=== PATIENT | male | born 1970 | race Hispanic/Latino ===

== ENCOUNTER 2020-09-17 10:24 | Outpatient (CLI) | payer OTHER ==
[2020-09-17] MEDS ORDERED: COVID-19 VACC, MRNA(PFIZER)/PF 30 MCG/0.3 ML IM ONE (10:37)
[2020-10-08] MEDS ORDERED: COVID-19 VACC, MRNA(PFIZER)/PF 30 MCG/0.3 ML IM ONE (11:29)
== END 2020-09-17 10:25 | disposition home or self-care (01) ==
LOC: COVVAC 10:24
PROVIDERS: ATTEND Internal Medicine
DX: Z23 Encounter for immunization (principal)
CPT/HCPCS: 0001A; 91300; 0002A

== ENCOUNTER 2021-04-16 20:18 | Inpatient (IN) | payer OTHER ==
[2021-04-16] MEDS ORDERED: dexAMETHasone 20 MG/5 ML VIAL IV ONE (21:12)
--- NOTE | 2021-04-16 21:31 | Emergency Department Report ---
ED General Adult HPI - General Chief complaint: Dyspnea/Respdistress Stated complaint: COVID + DUARTE Time Seen by Provider: 04/16/21 21:08 Source: patient Mode of arrival: Ambulatory Limitations: No Limitations - History of Present Illness Initial comments: Is a 51-year-old male who presents with shortness of breath. Patient has history of Covid and he was admitted last week to the hospital. He states he was sent home with oxygen however he is needed 4 L of oxygen and his shortness of breath has gotten worse when he walks his oxygen drops down to the mid 80s. And he coughs multiple times. Patient states he has some body aches he denies having nausea. - Related Data Home Medications Medication Instructions Recorded Confirmed Last Taken Cyclobenzaprine [Flexeril 10 MG 1 tab PO TID PRN 09/26/13 10/10/13 09/19/13 TAB] HYDROcodone/APAP 10-325 [[place] 1 tab PO Q6HR PRN 09/26/13 10/10/13 10/09/13 10-325 mg TAB] traMADoL [Ultram 50 MG tab] 1 tab PO Q6H PRN 09/26/13 10/10/13 10/03/13 Gabapentin 1 tab PO TID 09/27/13 10/10/13 10/09/13 Previous Rx's Medication Instructions Recorded Last Taken Type ALPRAZolam [Xanax] 0.25 mg PO QHS #30 tablet 10/11/13 Unknown Rx Oxycodone HCl/Acetaminophen 1 each PO Q6HR PRN #30 tablet 10/11/13 Unknown Rx [Percocet 7.5-325 mg] Acetaminophen [Tylenol] 500 tab PO Q6HR PRN #30 tablet 04/13/21 Unknown Rx Albuterol Sulfate [Proventil Hfa] 1 - 2 puff IH Q6H PRN #1 hfa.aer.ad 04/13/21 Unknown Rx Ascorbic Acid [Vitamin C] 1,000 mg PO Q12H #30 tablet 04/13/21 Unknown Rx Benzonatate [Tessalon Perles] 100 mg PO Q8HR #30 capsule 04/13/21 Unknown Rx Doxycycline Hyclate 100 mg PO Q12H #20 capsule 04/13/21 Unknown Rx Ondansetron [Zofran Odt] 4 mg PO Q6HR PRN #20 tab.rapdis 04/13/21 Unknown Rx Allergies Allergy/AdvReac Type Severity Reaction Status Date / Time No Known Allergies Allergy Unverified 09/26/13 14:03 ED Review of Systems ROS: Stated complaint: COVID + DUARTE Other details as noted in HPI Constitutional: weakness. denies: chills, fever Eyes: denies: eye pain, eye discharge, vision change ENT: denies: ear pain, throat pain Respiratory: cough. denies: wheezing Cardiovascular: denies: chest pain, palpitations Endocrine: no symptoms reported Gastrointestinal: denies: abdominal pain, nausea, diarrhea Genitourinary: denies: urgency, dysuria Musculoskeletal: denies: back pain, joint swelling, arthralgia Skin: denies: rash, lesions Neurological: denies: headache, weakness, paresthesias Psychiatric: denies: anxiety, depression Hematological/Lymphatic: denies: easy bleeding, easy bruising ED Past Medical Hx - Past Medical History Previous Medical History?: Yes Hx Hypertension: Yes Hx Congestive Heart Failure: No Hx Diabetes: No Hx GERD: Yes Hx Arthritis: Yes Hx Headaches / Migraines: Yes (migraines) Hx Asthma: No Hx COPD: No - Surgical History Past Surgical History?: No - Social History Smoking Status: Former Smoker - Medications Home Medications: Home Medications Medication Instructions Recorded Confirmed Last Taken Type Cyclobenzaprine [Flexeril 10 MG 1 tab PO TID PRN 09/26/13 10/10/13 09/19/13 History TAB] HYDROcodone/APAP 10-325 [[place] 1 tab PO Q6HR PRN 09/26/13 10/10/13 10/09/13 History 10-325 mg TAB] traMADoL [Ultram 50 MG tab] 1 tab PO Q6H PRN 09/26/13 10/10/13 10/03/13 History Gabapentin 1 tab PO TID 09/27/13 10/10/13 10/09/13 History ALPRAZolam [Xanax] 0.25 mg PO QHS #30 tablet 10/11/13 Unknown Rx Oxycodone HCl/Acetaminophen 1 each PO Q6HR PRN #30 tablet 10/11/13 Unknown Rx [Percocet 7.5-325 mg] Acetaminophen [Tylenol] 500 tab PO Q6HR PRN #30 tablet 04/13/21 Unknown Rx Albuterol Sulfate [Proventil Hfa] 1 - 2 puff IH Q6H PRN #1 hfa.aer.ad 04/13/21 Unknown Rx Ascorbic Acid [Vitamin C] 1,000 mg PO Q12H #30 tablet 04/13/21 Unknown Rx Benzonatate [Tessalon Perles] 100 mg PO Q8HR #30 capsule 04/13/21 Unknown Rx Doxycycline Hyclate 100 mg PO Q12H #20 capsule 04/13/21 Unknown Rx Ondansetron [Zofran Odt] 4 mg PO Q6HR PRN #20 tab.rapdis 04/13/21 Unknown Rx ED Physical Exam - General Limitations: No Limitations General appearance: alert, in no apparent distress - Head Head exam: Present: atraumatic, normocephalic - Eye Eye exam: Present: normal appearance - ENT ENT exam: Present: mucous membranes moist - Neck Neck exam: Present: normal inspection - Respiratory Respiratory exam: Present: respiratory distress, rhonchi - Cardiovascular Cardiovascular Exam: Present: regular rate, normal rhythm. Absent: systolic murmur, diastolic murmur, rubs, gallop - GI/Abdominal GI/Abdominal exam: Present: soft, normal bowel sounds - Rectal Rectal exam: Present: deferred - Extremities Exam Extremities exam: Present: normal inspection - Back Exam Back exam: Present: normal inspection - Neurological Exam Neurological exam: Present: alert, oriented X3 - Psychiatric Psychiatric exam: Present: normal affect, normal mood - Skin Skin exam: Present: warm, dry, intact, normal color. Absent: rash ED Course Vital Signs 04/16/21 04/16/21 04/16/21 20:22 21:06 22:33 Temperature 98.5 F Pulse Rate 95 H 101 H 85 Respiratory 20 22 20 Rate Blood Pressure 129/75 O2 Sat by Pulse 90 90 95 Oximetry - Consultations Consultation #1: 04/17/21 00:[address] Alvarez hospitalist about the patient he states the patient will be admitted to intermediate care ED Medical Decision Making - Lab Data Result diagrams: 04/16/21 21:18 04/16/21 21:18 Lab Results 04/16/21 04/16/21 04/16/21 Range/Units 21:18 21:18 21:18 WBC 3.5 L (4.5-11.0) K/mm3 RBC 4.62 (3.65-5.03) M/mm3 Hgb 13.3 (11.8-15.2) gm/dl Hct 40.5 (35.5-45.6) % MCV 88 (84-94) fl MCH 29 (28-32) pg MCHC 33 (32-34) % RDW 13.2 (13.2-15.2) % Plt Count 85 L (140-440) K/mm3 Lymph % (Auto) 20.0 (13.4-35.0) % [place] % (Auto) 5.2 (0.0-7.3) % Eos % (Auto) 0.1 (0.0-4.3) % Baso % (Auto) 0.5 (0.0-1.8) % Lymph # (Auto) 0.7 L (1.2-5.4) K/mm3 [place] # (Auto) 0.2 (0.0-0.8) K/mm3 Eos # (Auto) 0.0 (0.0-0.4) K/mm3 Baso # (Auto) 0.0 (0.0-0.1) K/mm3 Seg Neutrophils % 74.2 H (40.0-70.0) % Seg Neutrophils # 2.6 (1.8-7.7) K/mm3 Sodium 132 L (137-145) mmol/L Potassium 4.1 (3.6-5.0) mmol/L Chloride 93.8 L (98-107) mmol/L Carbon Dioxide 24 (22-30) mmol/L Anion Gap 18 mmol/L BUN 10 (9-20) mg/dL Creatinine 0.7 L (0.8-1.3) mg/dL Estimated GFR > 60 ml/min BUN/Creatinine Ratio 14 % Glucose 125 H (75-100) mg/dL Lactic Acid 1.10 (0.7-2.0) mmol/L Calcium 8.2 L (8.4-10.2) mg/dL Total Bilirubin 0.50 (0.1-1.2) mg/dL AST 83 H (5-40) units/L ALT 63 H (7-56) units/L Alkaline Phosphatase 49 (35-129) units/L Total Protein 6.3 (6.3-8.2) g/dL Albumin 3.7 L (3.9-5) g/dL Albumin/Globulin Ratio 1.4 % - Radiology Data Radiology results: report reviewed, image reviewed X-ray: Shows worsening Covid pneumonia CT angio: Shows worsening Covid pneumonia - Medical Decision Making Chief medical diagnosis: Covid pneumonia differential medical diagnosis acute respiratory failure, pulmonary embolism I will get IV Decadron CBC BMP CT angio IV antibiotics and I will admit the patient to the hospital Critical Care Time: Yes (120) Critical care attestation.: If time is entered above; I have spent that time in minutes in the direct care of this critically ill patient, excluding procedure time. ED Disposition Clinical Impression: Acute respiratory failure due to COVID-19, SOB (shortness of breath) Disposition: 04 INTERMEDIATE CARE FACILITY Is pt being admited?: Yes Does the pt Need Aspirin: No Condition: Stable Referrals: PRIMARY CARE, [Primary Care Provider] - 3-5 Days
[2021-04-16 21:36] LABS: Basophils % (Auto) 0.5 % (0.0-1.8); Eosinophils % (Auto) 0.1 % (0.0-4.3); Hematocrit 40.5 % (35.5-45.6); Hemoglobin 13.3 gm/dl (11.8-15.2); Lymphocytes # (Auto) 0.7 K/mm3 (1.2-5.4); Mean Corpuscular HGB Conc 33 % (32-34); Mean Corpuscular Volume 88 fl (84-94); Monocytes # (Auto) 0.2 K/mm3 (0.0-0.8); Monocytes % (Auto) 5.2 % (0.0-7.3); Red Blood Count 4.62 M/mm3 (3.65-5.03); Red Cell Distribution Width 13.2 % (13.2-15.2)
--- NOTE | 2021-04-16 21:41 | XRay Report ---
CHEST 1 VIEW INDICATION: sob. COMPARISON: 4 days prior FINDINGS: SUPPORT DEVICES: None. HEART: Within normal limits. LUNGS/PLEURA: Extensive patchy multifocal airspace disease has developed since the previous exam when the lungs were clear. No effusion identified. ADDITIONAL FINDINGS: None. IMPRESSION: 1. Significantly worsened exam. Signer Name: Ron Ford MD Signed: 04/16/2021 9:37 PM Workstation Name: [id number]
[2021-04-16 21:43] LABS: Platelet Count 85 K/mm3 (140-440)
[2021-04-16 21:52] LABS: Alanine Aminotransferase 63 units/L (7-56); Albumin 3.7 g/dL (3.9-5); Blood Urea Nitrogen 10 mg/dL (9-20); Calcium 8.2 mg/dL (8.4-10.2); Hemolysis Index 27
[2021-04-16 22:02] LABS: BUN/Creatinine Ratio 14
[2021-04-17] MEDS ORDERED: PIPERACIL/TAZOBACTA 4.5/NS 100 4.5 GM/100 ML VIAL IV ONE (00:04)
--- NOTE | 2021-04-17 00:07 | Cat Scan Report ---
CTA CHEST WITH CONTRAST INDICATION / CLINICAL INFORMATION: Dyspnea / Respiratory Distress. Concern for Pulmonary Embolism. TECHNIQUE: Axial CT images were obtained through the chest after injection of 1 cc of Omnipaque 350 I V contrast. 3 plane MIP and/or 3D reconstructions were produced. All CT scans at this location are pe rformed using CT dose reduction for ALARA by means of automated exposure control. COMPARISON: None available. FINDINGS: PULMONARY ARTERIES: No central pulmonary embolism. There is poor opacification of the pulmonary arter ies beyond the central pulmonary artery. THORACIC AORTA: No significant abnormality. HEART: No significant abnormality. CORONARY ARTERY CALCIFICATION: None. MEDIASTINUM / CHRISTIE: No significant abnormality. PLEURA: No pleural effusion. No pneumothorax. LUNGS: Scattered groundglass opacities throughout the bilateral lungs. ADDITIONAL FINDINGS: None. UPPER ABDOMEN: No acute findings. SKELETAL STRUCTURES: No significant osseous abnormality. IMPRESSION: 1. No CT evidence for central pulmonary embolism. 2. Scattered groundglass opacities at the bilateral lungs suggesting atypical infectious process. Signer Name: Rodriguez Haynes DO Signed: 04/17/2021 12:03 AM Workstation Name: [id number]
[2021-04-17] MEDS ORDERED: ONDANSETRON 4 MG/2 ML INJ IV PRN (01:45)
--- NOTE | 2021-04-17 01:55 | History and Physical Report ---
History of Present Illness Date of examination: 04/17/21 Date of admission: 04/17/21 00:43 Chief complaint: Shortness of breath Respiratory distress History of present illness: 51-year-old male with history of morbid obesity, hypertension, migraine, coronary osteoarthritis and GERD and headache was brought to the emergency room because of progressive shortness of breath. Patient has history of Covid and he was admitted last week to the hospital. He states he was sent home with oxygen however he is needed 4 L of oxygen and his shortness of breath has gotten worse when he walks his oxygen drops down to the mid 80s. And he coughs multiple times. Patient states he has some body aches he denies having nausea. Patient stated that he came into contact with an individual who had tested positive for COVID-19 viral infection, but he admits that he has been fully vaccinated against COVID-19 viral infection. In the emergency room patient CT scan of the chest showed scattered groundglass opacities at the bilateral lung suggesting atypical infectious process. Past History Past Medical History: arthritis (Migraine headache), GERD, hypertension, other (Morbid obesity) Medications and Allergies Allergies Allergy/AdvReac Type Severity Reaction Status Date / Time No Known Allergies Allergy Unverified 09/26/13 14:03 Home Medications Medication Instructions Recorded Confirmed Last Taken Type Cyclobenzaprine [Flexeril 10 MG 1 tab PO TID PRN 09/26/13 10/10/13 09/19/13 History TAB] HYDROcodone/APAP 10-325 [[place] 1 tab PO Q6HR PRN 09/26/13 10/10/13 10/09/13 History 10-325 mg TAB] traMADoL [Ultram 50 MG tab] 1 tab PO Q6H PRN 09/26/13 10/10/13 10/03/13 History Gabapentin 1 tab PO TID 09/27/13 10/10/13 10/09/13 History ALPRAZolam [Xanax] 0.25 mg PO QHS #30 tablet 10/11/13 Unknown Rx Oxycodone HCl/Acetaminophen 1 each PO Q6HR PRN #30 tablet 10/11/13 Unknown Rx [Percocet 7.5-325 mg] Acetaminophen [Tylenol] 500 tab PO Q6HR PRN #30 tablet 04/13/21 Unknown Rx Albuterol Sulfate [Proventil Hfa] 1 - 2 puff IH Q6H PRN #1 hfa.aer.ad 04/13/21 Unknown Rx Ascorbic Acid [Vitamin C] 1,000 mg PO Q12H #30 tablet 04/13/21 Unknown Rx Benzonatate [Tessalon Perles] 100 mg PO Q8HR #30 capsule 04/13/21 Unknown Rx Doxycycline Hyclate 100 mg PO Q12H #20 capsule 04/13/21 Unknown Rx Ondansetron [Zofran Odt] 4 mg PO Q6HR PRN #20 tab.rapdis 04/13/21 Unknown Rx Active Meds: Active Medications Acetaminophen (Acetaminophen 325 Mg Tab) 650 mg PO Q4H PRN PRN Reason: Pain MILD(1-3)/Fever >100.5/ALEXANDER Albuterol (Albuterol 2.5 Mg/3 Ml Nebu) 2.5 mg IH Q4HRT PRN PRN Reason: Shortness Of Breath Albuterol/Ipratropium (Ipratropium/Albuterol Sulfate 3 Ml Ampul.Neb) 1 ampul IH Q6HRT DEIRDRE Famotidine (Famotidine 20 Mg Tab) 20 mg PO BID DEIRDRE Hydromorphone HCl (Hydromorphone 1 Mg/1 Ml Inj) 0.5 mg IV Q3H PRN PRN Reason: Pain , Severe (7-10) Ceftriaxone Sodium (Rocephin/Ns 2 Gm/100 Ml) 2 gm in 100 mls @ 200 mls/hr IV Q24H DEIRDRE; Protocol Azithromycin (Zithromax/Ns) 500 mg in 250 mls @ 250 mls/hr IV Q24H DEIRDRE; Protocol Morphine Sulfate (Morphine 2 Mg/1 Ml Inj) 2 mg IV Q4H PRN PRN Reason: Pain, Moderate (4-6) Ondansetron HCl (Ondansetron 4 Mg/2 Ml Inj) 4 mg IV Q8H PRN PRN Reason: Nausea And Vomiting Sodium Chloride (Sodium Chloride 0.9% 10 Ml Flush Syringe) 10 ml IV BID DEIRDRE Sodium Chloride (Sodium Chloride 0.9% 10 Ml Flush Syringe) 10 ml IV PRN PRN PRN Reason: LINE FLUSH Review of Systems All systems: negative Cardiovascular: shortness of breath, dyspnea on exertion Respiratory: shortness of breath, dyspnea on exertion Exam - Constitutional Vitals: Temp Pulse Resp BP Pulse Ox 98.5 F 85 20 129/75 95 04/16/21 20:22 04/16/21 22:33 04/16/21 22:33 04/16/21 20:22 04/16/21 22:33 General appearance: Present: no acute distress, well-nourished - EENT Eyes: Present: PERRL ENT: hearing intact, clear oral mucosa - Neck Neck: Present: supple, normal ROM - Respiratory Respiratory effort: normal Respiratory: bilateral: diminished - Cardiovascular Heart Sounds: Present: S1 & S2. Absent: rub, click - Extremities Extremities: pulses symmetrical, No edema Peripheral Pulses: within normal limits - Abdominal General gastrointestinal: Present: soft, non-tender, non-distended, normal bowel sounds Male genitourinary: Present: normal - Integumentary Integumentary: Present: clear, warm, dry - Musculoskeletal Musculoskeletal: gait normal, strength equal bilaterally - Psychiatric Psychiatric: appropriate mood/affect, intact judgment & insight - Neurologic Neurologic: CNII-XII intact, moves all extremities Results - Labs CBC & Chem 7: 04/16/21 21:18 04/16/21 21:18 Labs: Laboratory Last Values WBC 3.5 K/mm3 (4.5-11.0) L 04/16/21 21:18 RBC 4.62 M/mm3 (3.65-5.03) 04/16/21 21:18 Hgb 13.3 gm/dl (11.8-15.2) 04/16/21 21:18 Hct 40.5 % (35.5-45.6) 04/16/21 21:18 MCV 88 fl (84-94) 04/16/21 21:18 MCH 29 pg (28-32) 04/16/21 21:18 MCHC 33 % (32-34) 04/16/21 21:18 RDW 13.2 % (13.2-15.2) 04/16/21 21:18 Plt Count 85 K/mm3 (140-440) L 04/16/21 21:18 Lymph % (Auto) 20.0 % (13.4-35.0) 04/16/21 21:18 [place] % (Auto) 5.2 % (0.0-7.3) 04/16/21 21:18 Eos % (Auto) 0.1 % (0.0-4.3) 04/16/21 21:18 Baso % (Auto) 0.5 % (0.0-1.8) 04/16/21 21:18 Lymph # (Auto) 0.7 K/mm3 (1.2-5.4) L 04/16/21 21:18 [place] # (Auto) 0.2 K/mm3 (0.0-0.8) 04/16/21 21:18 Eos # (Auto) 0.0 K/mm3 (0.0-0.4) 04/16/21 21:18 Baso # (Auto) 0.0 K/mm3 (0.0-0.1) 04/16/21 21:18 Seg Neutrophils % 74.2 % (40.0-70.0) H 04/16/21 21:18 Seg Neutrophils # 2.6 K/mm3 (1.8-7.7) 04/16/21 21:18 Sodium 132 mmol/L (137-145) L 04/16/21 21:18 Potassium 4.1 mmol/L (3.6-5.0) 04/16/21 21:18 Chloride 93.8 mmol/L (98-107) L 04/16/21 21:18 Carbon Dioxide 24 mmol/L (22-30) 04/16/21 21:18 Anion Gap 18 mmol/L 04/16/21 21:18 BUN 10 mg/dL (9-20) 04/16/21 21:18 Creatinine 0.7 mg/dL (0.8-1.3) L 04/16/21 21:18 Estimated GFR > 60 ml/min 04/16/21 21:18 BUN/Creatinine Ratio 14 % 04/16/21 21:18 Glucose 125 mg/dL (75-100) H 04/16/21 21:18 Lactic Acid 1.10 mmol/L (0.7-2.0) 04/16/21 21:18 Calcium 8.2 mg/dL (8.4-10.2) L 04/16/21 21:18 Total Bilirubin 0.50 mg/dL (0.1-1.2) 04/16/21 21:18 AST 83 units/L (5-40) H 04/16/21 21:18 ALT 63 units/L (7-56) H 04/16/21 21:18 Alkaline Phosphatase 49 units/L (35-129) 04/16/21 21:18 Total Protein 6.3 g/dL (6.3-8.2) 04/16/21 21:18 Albumin 3.7 g/dL (3.9-5) L 04/16/21 21:18 Albumin/Globulin Ratio 1.4 % 04/16/21 21:18 - Imaging and Cardiology CT scan - chest: report reviewed Assessment and Plan VTE prophylaxis?: Chemical Plan of care discussed with patient/family: Yes - Patient Problems (1) Acute respiratory failure due to COVID-19 Current Visit: Yes Status: Acute Plan to address problem: Admit the patient to the medical telemetry. Oxygen via nasal cannula 3 L/min. DuoNeb by nebulizer every 4 hours. Dexamethasone 6 mg IV daily. Rocephin 2 g IV daily. Zithromax 500 mg IV daily. We will do the blood culture and sputum culture. Follow Covid inflammatory marker. Vitamin C 1000 mg p.o. every 12 hours. We will consult infectious disease as well as pulmonary for evaluation (2) Suspected 2019 novel coronavirus infection Current Visit: No Status: Acute Plan to address problem: Oxygen via nasal cannula 3 L/min. DuoNeb by nebulizer every 4 hours. Dexamethasone 6 mg IV daily. Rocephin 2 g IV daily. Zithromax 500 mg IV daily. We will do the blood culture and sputum culture. Follow Covid inflammatory marker. Vitamin C 1000 mg p.o. every 12 hours. We will consult infectious disease as well as pulmonary for evaluation (3) Community acquired pneumonia Current Visit: No Status: Acute Qualifiers: Laterality: unspecified laterality Qualified Code(s): J18.9 - Pneumonia, unspecified organism Plan to address problem: Oxygen via nasal cannula 3 L/min. DuoNeb by nebulizer every 4 hours. Dexamethasone 6 mg IV daily. Rocephin 2 g IV daily. Zithromax 500 mg IV daily. W e will do the blood culture and sputum culture. (4) Hypertension Current Visit: Yes Status: Acute Plan to address problem: Hydralazine 10 mg IV every 6 hours as needed. We continue the home medication (5) GERD (gastroesophageal reflux disease) Current Visit: Yes Status: Acute Plan to address problem: Pepcid 20 mg p.o. twice daily for GI prophylaxis. (6) Arthritis Current Visit: Yes Status: Acute Plan to address problem: Tylenol 650 mg p.o. every 6 hours as needed. We will continue the home medication (7) DVT prophylaxis Current Visit: No Status: Acute Plan to address problem: Heparin 5000 units subcu every 8 hours for DVT prophylaxis. Pepcid 20 mg p.o. twice daily for GI prophylaxis. Patient is a full code
[2021-04-17] MEDS ORDERED: AZITHROMYCIN/NS 500 MG/250 ML 500 MG/250 ML BAG IV SCH (02:00)
[2021-04-17] MEDS: ASCORBIC ACID 500 MG TAB PO SCH ×3 (03:40→23:33)
[2021-04-17] MEDS: cefTRIAXone/NS 2 GM/100 ML 2 GM/100 ML BAG IV SCH ×2 (03:40→10:07)
[2021-04-17] MEDS: IPRATROPIUM/ALBUTEROL SULFATE 3 ML AMPUL.NEB IH SCH ×4 (06:31→21:04)
--- NOTE | 2021-04-17 09:39 | Electrocardiograph Report ---
[facility] Test Date: 2021-04-17 Test Time: 02:42:30 Pat Name: LOTTIE CRUZ Department: Room: [place] [address] Gender: M [employer]: ANN : 1970 Requested By: DARON GREGORY Order Number: [id number] Reading MD: Jassi Melvin Measurements Intervals [place] Rate: 88 P: 46 NE: 154 QRS: 26 QRSD: 90 T: 23 QT: 348 QTc: 421 Interpretive Statements Sinus rhythm Probable left atrial enlargement Compared to ECG 04/12/2021 22:12:22 No significant changes Electronically Signed On 04-17-2021 9:39:15 EST by Jassi Melvin
[2021-04-17] MEDS: GABAPENTIN 300 MG CAP PO SCH ×3 (10:07→23:01)
[2021-04-17] MEDS: dexAMETHasone 4 MG/ML VIAL IV SCH (10:08)
[2021-04-17] MEDS: FAMOTIDINE 20 MG TAB PO SCH ×2 (10:08→23:31)
--- NOTE | 2021-04-17 11:01 | Consultation ---
History of Present Illness Consult date: 04/17/21 Requesting physician: TARIQ BAHENA Reason for consult: other (Acute Hypoxemic Resp Failure; COVID-19 Pneumonia) History of present illness: PULMONARY/CCM CONSULT NOTE (Full dictation # [id number]) Please see dictated notes for full details Past History Past Medical History: arthritis (Migraine headache), GERD, hypertension, other (Morbid obesity) Medications and Allergies Allergies Allergy/AdvReac Type Severity Reaction Status Date / Time No Known Allergies Allergy Unverified 09/26/13 14:03 Home Medications Medication Instructions Recorded Confirmed Last Taken Type Cyclobenzaprine [Flexeril 10 MG 1 tab PO TID PRN 09/26/13 10/10/13 09/19/13 History TAB] HYDROcodone/APAP 10-325 [[place] 1 tab PO Q6HR PRN 09/26/13 10/10/13 10/09/13 History 10-325 mg TAB] traMADoL [Ultram 50 MG tab] 1 tab PO Q6H PRN 09/26/13 10/10/13 10/03/13 History Gabapentin 1 tab PO TID 09/27/13 10/10/13 10/09/13 History ALPRAZolam [Xanax] 0.25 mg PO QHS #30 tablet 10/11/13 Unknown Rx Oxycodone HCl/Acetaminophen 1 each PO Q6HR PRN #30 tablet 10/11/13 Unknown Rx [Percocet 7.5-325 mg] Acetaminophen [Tylenol] 500 tab PO Q6HR PRN #30 tablet 04/13/21 Unknown Rx Albuterol Sulfate [Proventil Hfa] 1 - 2 puff IH Q6H PRN #1 hfa.aer.ad 04/13/21 Unknown Rx Ascorbic Acid [Vitamin C] 1,000 mg PO Q12H #30 tablet 04/13/21 Unknown Rx Benzonatate [Tessalon Perles] 100 mg PO Q8HR #30 capsule 04/13/21 Unknown Rx Doxycycline Hyclate 100 mg PO Q12H #20 capsule 04/13/21 Unknown Rx Ondansetron [Zofran Odt] 4 mg PO Q6HR PRN #20 tab.rapdis 04/13/21 Unknown Rx Active Meds: Active Medications Acetaminophen (Acetaminophen 325 Mg Tab) 650 mg PO Q4H PRN PRN Reason: Pain MILD(1-3)/Fever >100.5/AL[place]ER Albuterol (Albuterol 2.5 Mg/3 Ml Nebu) 2.5 mg IH Q4HRT PRN PRN Reason: Shortness Of Breath Albuterol/Ipratropium (Ipratropium/Albuterol Sulfate 3 Ml Ampul.Neb) 1 ampul IH Q6HRT [facility] Last Admin: 04/17/21 06:31 Dose: Not Given Documented by: Alprazolam (Alprazolam 0.25 Mg Tab) 0.25 mg PO QHS [facility] Ascorbic Acid (Ascorbic Acid 500 Mg Tab) 1,000 mg PO Q12HR [facility] Last Admin: 04/17/21 03:40 Dose: 1,000 mg Documented by: Azithromycin (Azithromycin 250 Mg Tab) 500 mg PO QDAY [facility]; Protocol Benzonatate (Benzonatate 100 Mg Cap) 100 mg PO Q8HR [facility] Cyclobenzaprine HCl (Cyclobenzaprine 10 Mg Tab) 10 mg PO TID PRN PRN Reason: Spasms Dexamethasone (Dexamethasone 4 Mg/Ml Vial) 6 mg IV DAILY [facility] Last Admin: 04/17/21 10:08 Dose: 6 mg Documented by: Famotidine (Famotidine 20 Mg Tab) 20 mg PO BID [facility] Last Admin: 04/17/21 10:08 Dose: 20 mg Documented by: Gabapentin (Gabapentin 300 Mg Cap) 300 mg PO TID [facility] Last Admin: 04/17/21 10:07 Dose: 300 mg Documented by: Heparin Sodium (Porcine) (Heparin 5,000 Unit/1 Ml Vial) 5,000 unit SUB-Q Q8HR [facility] Hydralazine HCl (Hydralazine 20 Mg/1 Ml Inj) 10 mg IV Q6H PRN PRN Reason: Blood Pressure Hydromorphone HCl (Hydromorphone 1 Mg/1 Ml Inj) 0.5 mg IV Q3H PRN PRN Reason: Pain , Severe (7-10) Ceftriaxone Sodium (Rocephin/Ns 2 Gm/100 Ml) 2 gm in 100 mls @ 200 mls/hr IV Q24HR [facility]; Protocol Last Admin: 04/17/21 10:07 Dose: 200 mls/hr Documented by: Morphine Sulfate (Morphine 2 Mg/1 Ml Inj) 2 mg IV Q4H PRN PRN Reason: Pain, Moderate (4-6) Ondansetron HCl (Ondansetron 4 Mg/2 Ml Inj) 4 mg IV Q8H PRN PRN Reason: Nausea And Vomiting Sodium Chloride (Sodium Chloride 0.9% 10 Ml Flush Syringe) 10 ml IV BID DEIRDRE Sodium Chloride (Sodium Chloride 0.9% 10 Ml Flush Syringe) 10 ml IV PRN PRN PRN Reason: LINE FLUSH Physical Examination Vital signs: Vital Signs Temp Pulse Resp BP Pulse Ox 98.5 F 95 H 20 129/75 90 04/16/21 20:22 04/16/21 20:22 04/16/21 20:22 04/16/21 20:22 04/16/21 20:22 Results - Laboratory Findings CBC and BMP: 04/16/21 21:18 04/16/21 21:18 Abnormal lab findings: Abnormal Labs 04/16/21 04/16/21 21:18 21:18 WBC 3.5 L Plt Count 85 L Lymph # (Auto) 0.7 L Seg Neutrophils % 74.2 H Sodium 132 L Chloride 93.8 L Creatinine 0.7 L Glucose 125 H Calcium 8.2 L AST 83 H ALT 63 H Albumin 3.7 L
[2021-04-17] MEDS: BENZONATATE 100 MG CAP PO SCH ×3 (14:19→23:32)
--- NOTE | 2021-04-17 14:35 | Event Note ---
Date: 04/17/21 Patient with recently diagnosed Covid-19. I have seen and examined him. Continue current management.
[2021-04-17 14:42] LABS: ABG Base Excess 3.1 mmol/L (-2.0-3.0); ABG HCO3 27.4 mmol/L (20.0-26.0); ABG Methemoglobin 0.5 % (0.0-1.5); ABG Oxygen Saturation 90.8 % (95.0-99.0); ABG PH 7.443 pH Units (7.350-7.450); ABG PO2 56.8 mm Hg (80.0-90.0)
[2021-04-17] MEDS ORDERED: FUROSEMIDE 20 MG/2 ML INJ IV STA (16:22)
[2021-04-17 17:29] LABS: Alanine Aminotransferase 68 units/L (7-56); Albumin 3.5 g/dL (3.9-5); BUN/Creatinine Ratio 13; Blood Urea Nitrogen 10 mg/dL (9-20); Calcium 8.7 mg/dL (8.4-10.2); Hemolysis Index 10
[2021-04-17] MEDS: HEPARIN 5,000 UNIT/1 ML VIAL SUB-Q SCH ×3 (18:20→23:32)
--- NOTE | 2021-04-17 18:24 | Consultation ---
History of Present Illness - Reason for Consult Consult date: 04/17/21 - History of Present Illness 51-year-old man past medical history morbid obesity, hypertension, CAD presented to hospital complaining of shortness of breath. He notes he was admitted with COVID-19 to the hospital last week and was sent home with oxygen. However shortness of breath got worse over that timeframe. He also complains of body aches and nausea. He is fully vaccinated against Covid. Afebrile with tachycardia. White count 3.5. Covid PCR pending. Elevated inflammatory markers. Currently on ceftriaxone, azithromycin. Currently on high flow nasal cannula. Imaging personally reviewed: Chest CTA: No pulmonary embolism. Positive for scattered groundglass Review of systems: Deferred to reduce to the risk of transmission of COVID-19 Past History Past Medical History: arthritis (Migraine headache), GERD, hypertension, other (Morbid obesity) Medications and Allergies Allergies Allergy/AdvReac Type Severity Reaction Status Date / Time No Known Allergies Allergy Unverified 09/26/13 14:03 Home Medications Medication Instructions Recorded Confirmed Last Taken Type Cyclobenzaprine [Flexeril 10 MG 1 tab PO TID PRN 09/26/13 10/10/13 09/19/13 History TAB] HYDROcodone/APAP 10-325 [Huxford 1 tab PO Q6HR PRN 09/26/13 10/10/13 10/09/13 History 10-325 mg TAB] traMADoL [Ultram 50 MG tab] 1 tab PO Q6H PRN 09/26/13 10/10/13 10/03/13 History Gabapentin 1 tab PO TID 09/27/13 10/10/13 10/09/13 History ALPRAZolam [Xanax] 0.25 mg PO QHS #30 tablet 10/11/13 Unknown Rx Oxycodone HCl/Acetaminophen 1 each PO Q6HR PRN #30 tablet 10/11/13 Unknown Rx [Percocet 7.5-325 mg] Acetaminophen [Tylenol] 500 tab PO Q6HR PRN #30 tablet 04/13/21 Unknown Rx Albuterol Sulfate [Proventil Hfa] 1 - 2 puff IH Q6H PRN #1 hfa.aer.ad 04/13/21 Unknown Rx Ascorbic Acid [Vitamin C] 1,000 mg PO Q12H #30 tablet 04/13/21 Unknown Rx Benzonatate [Tessalon Perles] 100 mg PO Q8HR #30 capsule 04/13/21 Unknown Rx Doxycycline Hyclate 100 mg PO Q12H #20 capsule 04/13/21 Unknown Rx Ondansetron [Zofran Odt] 4 mg PO Q6HR PRN #20 tab.rapdis 04/13/21 Unknown Rx Active Meds: Active Medications Acetaminophen (Acetaminophen 325 Mg Tab) 650 mg PO Q4H PRN PRN Reason: Pain MILD(1-3)/Fever >100.5/[place]ER Albuterol (Albuterol 2.5 Mg/3 Ml Nebu) 2.5 mg IH Q4HRT PRN PRN Reason: Shortness Of Breath Albuterol/Ipratropium (Ipratropium/Albuterol Sulfate 3 Ml Ampul.Neb) 1 ampul IH Q6HRT [facility] Last Admin: 04/17/21 12:32 Dose: Not Given Documented by: Alprazolam (Alprazolam 0.25 Mg Tab) 0.25 mg PO QHS [facility] Ascorbic Acid (Ascorbic Acid 500 Mg Tab) 1,000 mg PO Q12HR [facility] Last Admin: 04/17/21 10:08 Dose: 1,000 mg Documented by: Azithromycin (Azithromycin 250 Mg Tab) 500 mg PO QDAY [facility]; Protocol Benzonatate (Benzonatate 100 Mg Cap) 100 mg PO Q8HR [facility] Cyclobenzaprine HCl (Cyclobenzaprine 10 Mg Tab) 10 mg PO TID PRN PRN Reason: Spasms Dexamethasone (Dexamethasone 4 Mg/Ml Vial) 6 mg IV DAILY [facility] Last Admin: 04/17/21 10:08 Dose: 6 mg Documented by: Famotidine (Famotidine 20 Mg Tab) 20 mg PO BID [facility] Last Admin: 04/17/21 10:08 Dose: 20 mg Documented by: Gabapentin (Gabapentin 300 Mg Cap) 300 mg PO TID [facility] Last Admin: 04/17/21 18:10 Dose: 300 mg Documented by: Heparin Sodium (Porcine) (Heparin 5,000 Unit/1 Ml Vial) 5,000 unit SUB-Q Q8HR [facility] Hydralazine HCl (Hydralazine 20 Mg/1 Ml Inj) 10 mg IV Q6H PRN PRN Reason: Blood Pressure Hydromorphone HCl (Hydromorphone 1 Mg/1 Ml Inj) 0.5 mg IV Q3H PRN PRN Reason: Pain , Severe (7-10) Ceftriaxone Sodium (Rocephin/Ns 2 Gm/100 Ml) 2 gm in 100 mls @ 200 mls/hr IV Q24HR [facility]; Protocol Last Admin: 04/17/21 10:07 Dose: 200 mls/hr Documented by: REMDESIVIR 100 mg/ Sodium (Chloride) 250 mls @ 500 mls/hr IV Q24HR@2100 [facility] Stop: 04/21/21 21:29 Morphine Sulfate (Morphine 2 Mg/1 Ml Inj) 2 mg IV Q4H PRN PRN Reason: Pain, Moderate (4-6) Ondansetron HCl (Ondansetron 4 Mg/2 Ml Inj) 4 mg IV Q8H PRN PRN Reason: Nausea And Vomiting Sodium Chloride (Sodium Chloride 0.9% 10 Ml Flush Syringe) 10 ml IV BID DEIRD[facility] Sodium Chloride (Sodium Chloride 0.9% 10 Ml Flush Syringe) 10 ml IV PRN PRN PRN Reason: LINE FLUSH Sodium Chloride (Sodium Chloride 0.9% 50 Ml Ivpb) 50 ml IV Q24HR@2100 [facility] Stop: 04/21/21 21:01 Zinc Sulfate (Zinc Sulfate 220 Mg Cap) 220 mg PO BID [facility] Physical Examination - Physical Exam Narrative exam: Physical exam deferred to reduce risk of transmission of COVID-19. Please refer to primary team's note. - Constitutional Vitals: Vital Signs Temp Pulse Resp BP Pulse Ox 98.5 F 76 13 122/59 95 04/16/21 20:22 04/17/21 18:00 04/17/21 18:00 04/17/21 18:00 04/17/21 18:00 Temperature -Last 24 Hours Temperature 98.5 F Results - Labs CBC & Chem 7: 04/16/21 21:18 04/17/21 16:40 Labs: Abnormal lab results 04/16/21 04/16/21 04/17/21 Range/Units 21:18 21:18 16:40 WBC 3.5 L (4.5-11.0) K/mm3 Plt Count 85 L (140-440) K/mm3 Lymph # (Auto) 0.7 L (1.2-5.4) K/mm3 Seg Neutrophils % 74.2 H (40.0-70.0) % D-Dimer (0-234) ng/mlDDU ABG pO2 (80.0-90.0) mm Hg ABG HCO3 (20.0-26.0) mmol/L ABG O2 Saturation (95.0-99.0) % ABG Base Excess (-2.0-3.0) mmol/L ABG Hemoglobin (14.0-18.0) gm/dl Oxyhemoglobin (95.0-99.0) % Sodium 132 L (137-145) mmol/L Chloride 93.8 L (98-107) mmol/L Creatinine 0.7 L (0.8-1.3) mg/dL Glucose 125 H (75-100) mg/dL Calcium 8.2 L (8.4-10.2) mg/dL Ferritin 1918.0 H (30.0-300.0) ng/mL AST 83 H (5-40) units/L ALT 63 H (7-56) units/L Lactate Dehydrogenase (91-180) units/L C-Reactive Protein (0.00-1.30) mg/dL Albumin 3.7 L (3.9-5) g/dL 04/17/21 04/17/21 04/17/21 Range/Units 16:40 16:40 16:40 WBC (4.5-11.0) K/mm3 Plt Count (140-440) K/mm3 Lymph # (Auto) (1.2-5.4) K/mm3 Seg Neutrophils % (40.0-70.0) % D-Dimer 306.45 H (0-234) ng/mlDDU ABG pO2 (80.0-90.0) mm Hg ABG HCO3 (20.0-26.0) mmol/L ABG O2 Saturation (95.0-99.0) % ABG Base Excess (-2.0-3.0) mmol/L ABG Hemoglobin (14.0-18.0) gm/dl Oxyhemoglobin (95.0-99.0) % Sodium 135 L (137-145) mmol/L Chloride 96.2 L (98-107) mmol/L Creatinine (0.8-1.3) mg/dL Glucose 155 H (75-100) mg/dL Calcium (8.4-10.2) mg/dL Ferritin (30.0-300.0) ng/mL AST 72 H (5-40) units/L ALT 68 H (7-56) units/L Lactate Dehydrogenase 505 H (91-180) units/L C-Reactive Protein 16.30 H (0.00-1.30) mg/dL Albumin 3.5 L (3.9-5) g/dL 12/30/21 Range/Units Unknown WBC (4.5-11.0) K/mm3 Plt Count (140-440) K/mm3 Lymph # (Auto) (1.2-5.4) K/mm3 Seg Neutrophils % (40.0-70.0) % D-Dimer (0-234) ng/mlDDU ABG pO2 56.8 L (80.0-90.0) mm Hg ABG HCO3 27.4 H (20.0-26.0) mmol/L ABG O2 Saturation 90.8 L (95.0-99.0) % ABG Base Excess 3.1 H (-2.0-3.0) mmol/L ABG Hemoglobin 13.7 L (14.0-18.0) gm/dl Oxyhemoglobin 89.4 L (95.0-99.0) % Sodium (137-145) mmol/L Chloride (98-107) mmol/L Creatinine (0.8-1.3) mg/dL Glucose (75-100) mg/dL Calcium (8.4-10.2) mg/dL Ferritin (30.0-300.0) ng/mL AST (5-40) units/L ALT (7-56) units/L Lactate Dehydrogenase (91-180) units/L C-Reactive Protein (0.00-1.30) mg/dL Albumin (3.9-5) g/dL Assessment and Plan Cultures: COVID-19 PCR: Positive outpatient. A/P: 51-year-old man past medical history morbid obesity, hypertension, CAD #Severe COVID-19 pneumonia: Patient presented with a week of symptoms, chest CT with diffuse groundglass opacities, admission O2 sats decreased on room air. Inflammatory markers elevated #Acute hypoxemic respiratory failure: Likely secondary to COVID-19 infection. Currently on HFNC #Morbid obesity: Associated with worse COVID-19 outcomes Recommendations: -Dexamethasone 6 mg IV/PO daily for 10 days -Remdesivir 200 mg IV q day x 1 followed by 100 mg IV q day x 4 days -Obtain q48-72h inflammatory markers - ferritin, Ddimer, CRP, LDH -Continue ceftriaxone 2 gm IV qday and azithromycin 500 mg PO qday, if procalcitonin <0.25 ng/mL stop antibiotics -If COVID-19 PCR positive, and procalcitonin low okay to give Actemra -Anticoagulation per hospital protocol -Proning as able Thank you for the consult, we will continue to follow. MD Casandra [facility] ([facility] O: [phone] F: [phone]
[2021-04-17] MEDS: REMDESIVIR 200 MG in SODIUM CHLORIDE 0.9% 250ML 250 ML IV ONE ×2 (21:03→23:30)
--- NOTE | 2021-04-17 21:53 | Vascular Lab Report ---
DUPLEX DOPPLER LOWER EXTREMITY VEINS, BILATERAL INDICATION / CLINICAL INFORMATION: Bilateral lower extremity swelling. TECHNIQUE: Duplex doppler imaging was performed through the veins of both lower extremities using venous mackenzie andres and other maneuvers. COMPARISON: None available. FINDINGS: RIGHT COMMON FEMORAL VEIN: Negative. RIGHT FEMORAL VEIN: Negative. RIGHT POPLITEAL VEIN: Negative. RIGHT CALF VEINS: Limited visualization without evidence of DVT. LEFT COMMON FEMORAL VEIN: Negative. LEFT FEMORAL VEIN: Negative. LEFT POPLITEAL VEIN: Negative. LEFT CALF VEINS: Limited visualization without evidence of DVT. ADDITIONAL FINDINGS: None. IMPRESSION: 1. No sonographic evidence for DVT in either lower extremity. Signer Name: Norris Strong MD Signed: 04/17/2021 9:49 PM Workstation Name: [id number]
[2021-04-17] MEDS: SODIUM CHLORIDE 0.9% 50 ML IVPB IV SCH (22:23)
[2021-04-17 22:36] LABS: ABG HCO3 25.6 mmol/L (20.0-26.0); ABG Methemoglobin 0.4 % (0.0-1.5); ABG Oxygen Saturation 96.7 % (95.0-99.0); ABG PCO2 40.8 mm Hg; ABG PH 7.416 pH Units (7.350-7.450); ABG PO2 85.3 mm Hg (80.0-90.0)
[2021-04-17] MEDS: ZINC SULFATE 220 MG CAP PO SCH (23:33)
[2021-04-17] MEDS: ALPRAZolam 0.25 MG TAB PO SCH (23:33)
--- NOTE | 2021-04-18 01:11 | Consultation ---
DATE OF CONSULTATION: 04/17/2021 PULMONARY CRITICAL CARE CONSULT NOTE CONSULTING PHYSICIAN: Dr. Alvarez. REASON FOR CONSULTATION: Acute hypoxemic respiratory failure, COVID-19 infection, acute respiratory distress syndrome. CHIEF COMPLAINT AND HISTORY OF PRESENT ILLNESS: The patient is a now 51-year-old morbidly obese male with past medical history significant in this context for diagnosis also of COVID-19 that was diagnosed according to him a few days ago. He had come into the Emergency Room at that time with shortness of breath. At the time he came, he stated that he was 92% on room air. He was treated on outpatient level. He was sent home ultimately with some oxygen; however, at home his oxygen levels continued to deteriorate and he ultimately got to the point of needing about 5 liters nasal cannula just to keep his O2 sats around 90%. His caregiver works in the hospital, his ; and she decided to bring him into the Emergency Room. He was also desaturating with ambulatory oxygen level sats in the 80s. He denied any gross or streaky hemoptysis. He denied any acute chest pain. He denied any palpitations. He admitted to some lower extremity swelling stated that he had started taking [id number]-[id number] diuretic himself, but has not been prescribed one by a physician. Denies any history of any congestive heart failure or any other cardiac problem as far as he knows. When I stopped by to see him, he was resting in bed. He was sitting up in bed. He had just come off the bilevel positive air pressure ventilation machine and was on a high-flow nasal cannula system, the Vapotherm system. He was requiring 100% FiO2, 30 liters flow just to keep his sats around 92%. When asked about his vaccination status, he did state that he got the Pfizer vaccine. He got two shots, last shot in 09/2020, but he has not gotten any booster shot. This really is as much of the history of presentation as I have except to say he has a 10+ pack year tobacco smoking history, but quit smoking about 20 years ago, he tells me. He smoked for about 20 years. He is no longer smoking. This really is as much of the history of presentation as I have. PAST MEDICAL HISTORY: Morbid obesity, arthritis, gastroesophageal reflux disease, hypertension, and coronary artery disease. PAST SURGICAL HISTORY: Unknown. MEDICATIONS: He was on at the time I stopped by to see him, according to the medication administration record included the following: Tylenol 650 mg p.o. q. 4 hours p.r.n. mild pain or fevers, albuterol 2.5 mg nebulized q. 4 hours p.r.n. shortness of breath, DuoNeb nebulizer treatments q. 6 hours, Xanax 0.25 mg p.o. at bedtime, vitamin C 1 gram p.o. q. 12 hours, Zithromax 500 mg p.o. daily, Tessalon Perles 100 mg p.o. q.8 hours, Rocephin 2 grams IV daily, Flexeril 10 mg p.o. t.i.d. p.r.n. spasms, Decadron 6 mg IV daily, Pepcid 20 mg p.o. b.i.d., Neurontin 300 mg p.o. t.i.d., heparin 5000 units subcutaneous q. 8 hours, hydralazine 10 mg IV q. 6 hours p.r.n. elevated blood pressure, Dilaudid 0.5 mg IV q. 3 hours p.r.n. severe pain, morphine sulfate 2 mg IV q. 4 hours p.r.n. moderate pain, Zofran 4 mg IV q. 8 hours p.r.n. nausea and vomiting. ALLERGIES: No known drug allergies. DIET: Morbidly obese gentleman. Denies acute weight loss or gain in the preceding few weeks to months. FAMILY AND SOCIAL HISTORY: Lives in the community. He is , has a 10+ pack year tobacco smoking history. No longer smokes. Denies alcohol or illicit drug use or abuse. FAMILY HISTORY: Otherwise, noncontributory. REVIEW OF SYSTEMS: No loss of consciousness. No new onset seizures. No new onset focal weakness. Denies gross hematochezia or melena. No gross hematuria, no hematemesis. No new onset seizures. Denies polydipsia or polyuria. Complete 13-system review of system was obtained. Pertinent positives and/or negatives as in body of history above, otherwise they are noncontributory. PHYSICAL EXAMINATION: VITAL SIGNS: On presentation, temperature 98.5 degrees Fahrenheit, pulse of 95, respiratory rate of 20, blood pressure 129/75, O2 sats were 92% when I saw him, that was on 100 percent FiO2 via the Vapotherm system and 30 L flow. GENERAL: He is a middle-aged, morbidly obese male. Normocephalic, atraumatic. Talking to me with occasionally slightly interrupted sentences. Certainly with mildly increased respiratory effort at rest. HEAD, EYES, EARS, NOSE AND THROAT: Anicteric. No conjunctival erythema. Oropharynx was moist. NECK: No gross jugular venous distention. He does have a large neck circumference. Grossly, there were no palpable lymph nodes in the supraclavicular or submandibular lymph node chains. LUNGS: Auscultation of both lung montalvo are significant mostly for diminished bilateral breath sounds. No active wheezing and faint inspiratory crackles in the bases in particular. HEART: Sounds 1 and 2 are heard at the time of my evaluation, regular rate and rhythm without overt rubs or murmurs. ABDOMEN: Soft, full, protuberant. Bowel sounds are positive, nontender, no palpable hepatosplenomegaly. EXTREMITIES: Without overt digital clubbing or cyanosis. Trace to 1+ pedal edema. Pedal pulses are 2+ bilaterally. NEUROLOGIC: Pupils are equal, round, about 4 mm, reactive to light. Extraocular muscle movements are intact. He moves all 4 extremities spontaneously. SKIN: Normal turgor in the areas I examined without overt cellulitis or rash. Please see the wound care nurses' notes for full description of his skin. PSYCHIATRIC: Mood was normal. Affect was appropriate. He had intact judgment and insight. LABORATORY DATA: From my review are as follows: White cell count 3500, hemoglobin 13.3, hematocrit 40.5, platelet count was 85. No manual differential. Arterial blood gas showed a pH of 7.44, pCO2 of 41, pO2 of 57 that was on 60% FiO2 at that time. Serum sodium was 132, potassium 4.1, chloride 94, bicarbonate 24, BUN 10, creatinine 0.7, glucose 125. Lactic acid level within normal limits. AST was up at 83. ALT was up at 63. Albumin within normal limits. No microbiology studies for my review. Chest x-ray does show bilateral pulmonary infiltrates, diffuse, as well as gross cardiomegaly. A CT of the chest was done. It was a CT with contrast, but really does not appear to have been a CT angiogram, very poor contrast filling of the pulmonary arteries, inadequate for diagnosis or exclusion of pulmonary emboli. He does have bilateral pulmonary infiltrates/consolidation involving both lung montalvo and really, really large and pneumonic burden. No gross pneumothorax, no gross bony fracture that I can see. ASSESSMENT: 1. Acute respiratory distress syndrome secondary to COVID-19 infection. 2. Bilateral pneumonia. 3. Leukopenia. 4. Morbid obesity. 5. Thrombocytopenia. 6. Elevated serum transaminases. PLAN: I am definitely bothered about his clinical course over the past 3-4 days. I will change his admission to the intermediate care unit/step-down unit and avoid of sending him to the regular floor. He has shown significant decompensation. He does have a very large pneumonic burden on his CT of both his lung montalvo. Hopefully, things did not get worse. I will get a stat bilateral lower extremity Dopplers as part of the venous thromboembolic disorder workup. For now, we will continue with DVT prophylaxis doses of anticoagulation, but unfortunately he has received contrast. I will try and see if we can get him by about 48-72 hours before we challenging him with contrast. I will be wanting to get a CT angiogram of his chest. This is actually described as a CT angiogram, but again as I mentioned, it was very poor contrast phase timing and in my mind it is somewhat a very equivocal study. The official read reports this as no CT evidence for central pulmonary embolism and the other findings that I described above it is all differs with the radiologist on this one, but get bilateral lower extremity Dopplers. Oxygen will be weaned to keep sats greater than or equal to about 90%. Aspiration precautions will be maintained. He will need a lot of positive airway ventilation with his bilevel positive airway pressure ventilator. I will schedule a QA test. We will go with about 1810 with a backup rate of 20 and use its scheduled bedtime with p.r.n. daytime use. I will be getting a procalcitonin level as well as a CRP level to help guide clinical decision making. He may benefit from Actemra. I will defer to Infectious Disease. I will get ferritin levels, D-dimers and other inflammatory markers and trend as necessary. He is appropriately on systemic steroids. He is already on vitamin C. I will add zinc supplementation. Continued tobacco abstinence has been counseled. A BNP will also be ordered as there may be an element of pulmonary edema played. We certainly want to keep him on the dry side. I will give him a one-time dose of Lasix in the meantime 20 mg IV. While I get a BNP, consideration will also be given for a 2D echocardiogram to better understand his pulmonary or cardiovascular dynamics in light of his cardiomegaly on the chest x-ray. We will continue current GI and DVT prophylaxis with Pepcid and heparin. Flu and pneumonia vaccination will be addressed per protocol. Thank you very much for the consult. We will follow along and make further recommendations as picture progresses/becomes clearer. He is critically ill on life-sustaining interventions including the high-flow oxygen therapy, at very high risk of from cardiopulmonary system decompensation. At this time, I spent about 35-40 minutes of critical care time without overlap and excluding any procedural time that may be necessary. TID: [id number] RECEIPT: [id number] SREEDHAR/CHRISTINE
[2021-04-18 04:12] LABS: ABG Base Excess -3.3 mmol/L (-2.0-3.0); ABG Methemoglobin 0.7 % (0.0-1.5); ABG Oxygen Saturation 98.6 % (95.0-99.0); ABG PCO2 36.2 mm Hg; ABG PH 7.382 pH Units (7.350-7.450); ABG PO2 134.6 mm Hg (80.0-90.0)
[2021-04-18 05:32] LABS: Basophils % (Auto) 0.1 % (0.0-1.8); Hematocrit 40.2 % (35.5-45.6); Mean Corpuscular HGB Conc 32 % (32-34); Mean Corpuscular Volume 89 fl (84-94); Monocytes # (Auto) 0.7 K/mm3 (0.0-0.8); Monocytes % (Auto) 8.7 % (0.0-7.3); Platelet Count 115 K/mm3 (140-440); Red Blood Count 4.53 M/mm3 (3.65-5.03); Red Cell Distribution Width 13.1 % (13.2-15.2)
[2021-04-18 05:52] LABS: Alanine Aminotransferase 59 units/L (7-56); Albumin 3.3 g/dL (3.9-5); Blood Urea Nitrogen 13 mg/dL (9-20); Calcium 8.7 mg/dL (8.4-10.2); Hemolysis Index 15
[2021-04-18 06:07] LABS: BUN/Creatinine Ratio 19
[2021-04-18] MEDS: HEPARIN 5,000 UNIT/1 ML VIAL SUB-Q SCH ×3 (07:51→23:10)
[2021-04-18] MEDS: BENZONATATE 100 MG CAP PO SCH ×4 (07:53→23:09)
[2021-04-18] MEDS: GABAPENTIN 300 MG CAP PO SCH ×4 (07:53→23:09)
[2021-04-18] MEDS: MORPHINE 2 MG/1 ML INJ IV PRN ×2 (07:53→16:38)
[2021-04-18 08:26] LABS: ABG Base Excess 2.3 mmol/L (-2.0-3.0); ABG HCO3 26.9 mmol/L (20.0-26.0); ABG Methemoglobin 0.4 % (0.0-1.5); ABG Oxygen Saturation 93.6 % (95.0-99.0); ABG PH 7.425 pH Units (7.350-7.450); ABG PO2 64.3 mm Hg (80.0-90.0)
--- NOTE | 2021-04-18 08:27 | Progress Note ---
Assessment and Plan Assessment and plan: 1) Acute respiratory failure due to COVID-19 Current Visit: Yes Status: Acute Plan to address problem: Admit the patient to the medical telemetry. Oxygen via nasal cannula 3 L/min. DuoNeb by nebulizer every 4 hours. Dexamethasone 6 mg IV daily. Rocephin 2 g IV daily. Zithromax 500 mg IV daily. We will do the blood culture and sputum culture. Follow Covid inflammatory marker. Vitamin C 1000 mg p.o. every 12 hours. We will consult infectious disease as well as pulmonary for evaluation (2) Suspected 2019 novel coronavirus infection Current Visit: No Status: Acute Plan to address problem: Oxygen via nasal cannula 3 L/min. DuoNeb by nebulizer every 4 hours. Dexamethasone 6 mg IV daily. Rocephin 2 g IV daily. Zithromax 500 mg IV daily. We will do the blood culture and sputum culture. Follow Covid inflammatory marker. Vitamin C 1000 mg p.o. every 12 hours. We will consult infectious disease as well as pulmonary for evaluation (3) Community acquired pneumonia Current Visit: No Status: Acute Qualifiers: Laterality: unspecified laterality Qualified Code(s): J18.9 - Pneumonia, unspecified organism Plan to address problem: Oxygen via nasal cannula 3 L/min. DuoNeb by nebulizer every 4 hours. Dexamethasone 6 mg IV daily. Rocephin 2 g IV daily. Zithromax 500 mg IV daily. We will do the blood culture and sputum culture. (4) Hypertension Current Visit: Yes Status: Acute Plan to address problem: Hydralazine 10 mg IV every 6 hours as needed. We continue the home medication (5) GERD (gastroesophageal reflux disease) Current Visit: Yes Status: Acute Plan to address problem: Pepcid 20 mg p.o. twice daily for GI prophylaxis. (6) Arthritis Current Visit: Yes Status: Acute Plan to address problem: Tylenol 650 mg p.o. every 6 hours as needed. We will continue the home medication (7) DVT prophylaxis Current Visit: No Status: Acute Plan to address problem: Heparin 5000 units subcu every 8 hours for DVT prophylaxis. Pepcid 20 mg p.o. twice daily for GI prophylaxis. Patient is a full code 04/18/21 Patient with recently diagnosed Covid-19 04/13/21 as outpatient. Presents with shortness of breath. Now on Remdesivir, Decadron, Rocephin, Zithromax. Patient also has sleep apnea uses CPAP at home. Pulm and ID following He is currently on BIPAP History Interval history: Shortness of breath Hospitalist Physical - Physical exam Narrative exam: GENERAL: Not in acute distress, sitting up in bed, morbidly obese HEENT: Normocephalic. Atraumatic. Patient has moist mucous membranes. NECK: Supple. Trachea midline. CHEST/LUNGS: Bilateral crackles. HEART/CARDIOVASCULAR: Regular in rate and rhythm. S1 and S2 positive. ABDOMEN: Abdomen is soft, nontender. Patient has normal bowel sounds. SKIN: There is no rash. Warm and dry. NEURO: No focal motor deficit. Follows command. MUSCULOSKELETAL: No joint effusion or tenderness. EXTRIMITY: No edema, no cyanosis or clubbing. PSYCH: Cooperative. - Constitutional Vitals: Temp Pulse Resp BP Pulse Ox 98.5 F 75 29 H 158/88 95 04/16/21 20:22 04/18/21 07:00 04/18/21 05:30 04/18/21 07:00 04/18/21 07:00 General appearance: Present: no acute distress, obese Results - Labs CBC & Chem 7: 04/18/21 03:53 04/18/21 03:53 Labs: Laboratory Last Values WBC 7.7 K/mm3 (4.5-11.0) 04/18/21 03:53 RBC 4.53 M/mm3 (3.65-5.03) 04/18/21 03:53 Hgb 13.0 gm/dl (11.8-15.2) 04/18/21 03:53 Hct 40.2 % (35.5-45.6) 04/18/21 03:53 MCV 89 fl (84-94) 04/18/21 03:53 MCH 29 pg (28-32) 04/18/21 03:53 MCHC 32 % (32-34) 04/18/21 03:53 RDW 13.1 % (13.2-15.2) L 04/18/21 03:53 Plt Count 115 K/mm3 (140-440) L 04/18/21 03:53 Lymph % (Auto) 13.0 % (13.4-35.0) L 04/18/21 03:53 [place] % (Auto) 8.7 % (0.0-7.3) H 04/18/21 03:53 Eos % (Auto) 0.0 % (0.0-4.3) 04/18/21 03:53 Baso % (Auto) 0.1 % (0.0-1.8) 04/18/21 03:53 Lymph # (Auto) 1.0 K/mm3 (1.2-5.4) L 04/18/21 03:53 [place] # (Auto) 0.7 K/mm3 (0.0-0.8) 04/18/21 03:53 Eos # (Auto) 0.0 K/mm3 (0.0-0.4) 04/18/21 03:53 Baso # (Auto) 0.0 K/mm3 (0.0-0.1) 04/18/21 03:53 Seg Neutrophils % 78.2 % (40.0-70.0) H 04/18/21 03:53 Seg Neutrophils # 6.0 K/mm3 (1.8-7.7) 04/18/21 03:53 D-Dimer 306.45 ng/mlDDU (0-234) H 04/17/21 16:40 ABG pH 7.382 pH Units (7.350-7.450) 04/18/21 Unknown ABG pCO2 36.2 mm Hg 04/18/21 Unknown ABG pO2 134.6 mm Hg (80.0-90.0) H 04/18/21 Unknown ABG HCO3 21.0 mmol/L (20.0-26.0) 04/18/21 Unknown ABG O2 Saturation 98.6 % (95.0-99.0) 04/18/21 Unknown ABG O2 Content 22.0 (0.0-44) 04/18/21 Unknown ABG Base Excess -3.3 mmol/L (-2.0-3.0) L 04/18/21 Unknown ABG Hemoglobin 16.0 gm/dl (14.0-18.0) 04/18/21 Unknown ABG Carboxyhemoglobin 0.7 % (0.0-5.0) 04/18/21 Unknown ABG Methemoglobin 0.7 % (0.0-1.5) 04/18/21 Unknown Oxyhemoglobin 97.2 % (95.0-99.0) 04/18/21 Unknown FiO2 100 % 04/18/21 Unknown Sodium 135 mmol/L (137-145) L 04/18/21 03:53 Potassium 4.5 mmol/L (3.6-5.0) 04/18/21 03:53 Chloride 95.9 mmol/L (98-107) L 04/18/21 03:53 Carbon Dioxide 26 mmol/L (22-30) 04/18/21 03:53 Anion Gap 18 mmol/L 04/18/21 03:53 BUN 13 mg/dL (9-20) 04/18/21 03:53 Creatinine 0.7 mg/dL (0.8-1.3) L 04/18/21 03:53 Estimated GFR > 60 ml/min 04/18/21 03:53 BUN/Creatinine Ratio 19 % 04/18/21 03:53 Glucose 149 mg/dL (75-100) H 04/18/21 03:53 Lactic Acid 1.10 mmol/L (0.7-2.0) 04/16/21 21:18 Calcium 8.7 mg/dL (8.4-10.2) 04/18/21 03:53 Ferritin 1918.0 ng/mL (30.0-300.0) H 04/17/21 16:40 Total Bilirubin 0.50 mg/dL (0.1-1.2) 04/18/21 03:53 AST 62 units/L (5-40) H 04/18/21 03:53 ALT 59 units/L (7-56) H 04/18/21 03:53 Alkaline Phosphatase 47 units/L (35-129) 04/18/21 03:53 Lactate Dehydrogenase 505 units/L (91-180) H 04/17/21 16:40 C-Reactive Protein 16.30 mg/dL (0.00-1.30) H 04/17/21 16:40 NT-Pro-B Natriuret Pep 79.47 pg/mL (0-900) 04/17/21 16:40 Total Protein 6.3 g/dL (6.3-8.2) 04/18/21 03:53 Albumin 3.3 g/dL (3.9-5) L 04/18/21 03:53 Albumin/Globulin Ratio 1.1 % 04/18/21 03:53 Active Medications - Current Medications Current Medications: Generic Name Dose Route Start Last Admin Trade Name Freq PRN Reason Stop Dose Admin Acetaminophen 650 mg 04/17/21 01:45 Acetaminophen 325 Mg Tab PO Q4H PRN Pain MILD(1-3)/Fever >100.5/ALEXANDER Albuterol 2.5 mg 04/17/21 01:45 Albuterol 2.5 Mg/3 Ml Nebu IH Q4HRT PRN Shortness Of Breath Albuterol/Ipratropium 1 ampul 04/17/21 02:00 04/17/21 21:04 Ipratropium/Albuterol Sulfate 3 Ml Ampul.Neb IH Not Given Q6HRT DEIRDRE Alprazolam 0.25 mg 04/17/21 22:00 04/17/21 23:33 Alprazolam 0.25 Mg Tab PO 0.25 mg QHS DEIRDRE Administration Ascorbic Acid 1,000 mg 04/17/21 02:00 04/17/21 23:33 Ascorbic Acid 500 Mg Tab PO 1,000 mg Q12HR DEIRDRE Administration Azithromycin 500 mg 04/18/21 10:00 Azithromycin 250 Mg Tab PO QDAY DEIRDRE Protocol Benzonatate 100 mg 04/17/21 06:00 04/18/21 07:53 Benzonatate 100 Mg Cap PO 100 mg Q8HR DEIRDRE Administration Cyclobenzaprine HCl 10 mg 04/17/21 01:49 Cyclobenzaprine 10 Mg Tab PO TID PRN Spasms Dexamethasone 6 mg 04/17/21 10:00 04/17/21 10:08 Dexamethasone 4 Mg/Ml Vial IV 6 mg DAILY DEIRDRE Administration Famotidine 20 mg 04/17/21 10:00 04/17/21 23:31 Famotidine 20 Mg Tab PO 20 mg BID DEIRDRE Administration Gabapentin 300 mg 04/17/21 08:00 04/18/21 07:53 Gabapentin 300 Mg Cap PO 300 mg TID DEIRDRE Administration Heparin Sodium (Porcine) 5,000 unit 04/17/21 06:00 04/18/21 07:51 Heparin 5,000 Unit/1 Ml Vial SUB-Q 5,000 unit Q8HR DEIRDRE Administration Hydralazine HCl 10 mg 04/17/21 02:00 Hydralazine 20 Mg/1 Ml Inj IV Q6H PRN Blood Pressure Hydromorphone HCl 0.5 mg 04/17/21 01:45 Hydromorphone 1 Mg/1 Ml Inj IV Q3H PRN Pain , Severe (7-10) Ceftriaxone Sodium 2 gm in 100 mls @ 200 mls/hr 04/17/21 02:00 04/17/21 10:07 Rocephin/Ns 2 Gm/100 Ml IV 200 mls/hr Q24HR DEIRDRE Administration Protocol REMDESIVIR 100 mg/ Sodium 250 mls @ 500 mls/hr 04/18/21 21:00 Chloride IV 04/21/21 21:29 Q24HR@2100 DEIRDRE Morphine Sulfate 2 mg 04/17/21 01:45 04/18/21 07:53 Morphine 2 Mg/1 Ml Inj IV 2 mg Q4H PRN Administration Pain, Moderate (4-6) Ondansetron HCl 4 mg 04/17/21 01:45 04/18/21 07:48 Ondansetron 4 Mg/2 Ml Inj IV 4 mg Q8H PRN Administration Nausea And Vomiting Sodium Chloride 10 ml 04/17/21 10:00 04/17/21 23:32 Sodium Chloride 0.9% 10 Ml Flush Syringe IV 10 ml BID DEIRDRE Administration Sodium Chloride 10 ml 04/17/21 01:45 Sodium Chloride 0.9% 10 Ml Flush Syringe IV PRN PRN LINE FLUSH Sodium Chloride 50 ml 04/17/21 21:00 04/18/21 00:00 Sodium Chloride 0.9% 50 Ml Ivpb IV 04/21/21 21:01 50 ml Q24HR@2100 DEIRDRE Administration Zinc Sulfate 220 mg 04/17/21 22:00 04/17/21 23:33 Zinc Sulfate 220 Mg Cap PO 220 mg BID DEIRDRE Administration
[2021-04-18] MEDS: ALPRAZolam 0.25 MG TAB PO SCH ×3 (09:26→23:10)
[2021-04-18] MEDS: HYDROmorphone 1 MG/1 ML INJ IV PRN (09:27)
[2021-04-18] MEDS: CYCLOBENZAPRINE 10 MG TAB PO PRN (09:28)
[2021-04-18] MEDS: FAMOTIDINE 20 MG TAB PO SCH ×2 (09:29→23:09)
[2021-04-18] MEDS: ASCORBIC ACID 500 MG TAB PO SCH ×2 (09:29→23:10)
[2021-04-18] MEDS: dexAMETHasone 4 MG/ML VIAL IV SCH (09:31)
[2021-04-18] MEDS ORDERED: AZITHROMYCIN 250 MG TAB PO SCH (10:00)
[2021-04-18] MEDS: cefTRIAXone/NS 2 GM/100 ML 2 GM/100 ML BAG IV SCH (10:51)
[2021-04-18] MEDS: ZINC SULFATE 220 MG CAP PO SCH ×2 (10:53→23:09)
[2021-04-18] MEDS: IPRATROPIUM/ALBUTEROL SULFATE 3 ML AMPUL.NEB IH SCH ×2 (12:37→14:17)
--- NOTE | 2021-04-18 13:19 | Progress Note ---
Assessment and Plan Acute Hypoxemic Respiratory Failure ARDS ANKUSH COVID-19 infection Bilateral pneumonia Leukopenia Morbid obesity Thrombocytopenia Elevated serum transaminases - increased set rate on BIPAP to 30/min to hopefully reduce his work of breathing - agree's to intubation if he fails BIPAP - follow Procalcitonin level +/- give Actemra - repeat LFT's in 48 hours - continue NIV scheduled qhs with prn daytime use - dopplers negative for VTE - continue to wean supplemental oxygen for target O2 sat's > 90% acutely - aspiration precautions - continue bronchodilators with pulmonary hygiene per RT - avoid nephrotoxins, renally dose all medications - avoid benzodiazepine's, reduce the possibility of delirium - AB's per ID rec's (Rocephin and Zithromax)[follow Procalcitonin] - continue accuchecks with glycemic control per SSI (While critically ill target blood glucose of 140-180 mg/dL; avoid hypoglycemia) - prn analgesia per pain score - Maintenance of sleep-wake cycle, avoid delirium - G.I. & VTE prophylaxis - PT/OT/ROM exercises - continue mobility protocols for pressure ulcer prophylaxis - Monitor hemodynamics closely - continue other care per attending / other consultants - discharge planning ongoing concurrently COVID SPECIFIC INTERVENTIONS - Remdesivir as per ID/Pulmonary developed protocols (ordered) - continue systemic steroids for severe COVID-19 infection empirically (Decadron) - follow repeat COVID tests results - zinc and vitamin C supplementation - Monitor inflammatory markers per facility protocol - ferritin, Ddimer, CRP - therapeutic anticoagulation per system Protocol based on d-dimer and clinical considerations (VTE prophylaxis) - Continue contact and airborne isolation .... Re-evaluate in am & prn CONDITION: CRITICAL PROGNOSIS: GUARDED CODE STATUS: FULL CODE The high probability of a clinically significant, sudden or life-threatening deterioration of the [respiratory, ID & cardiovascular] system(s) required my full and direct attention, intervention and personal management. The aggregate critical care time was [33] minutes without overlap. Time includes spent on; [x] Data Review and interpretation [x] Patient assessment and monitoring of vital signs [x] Documentation [x] Medication orders and management Subjective Date of service: 04/18/21 Principal diagnosis: AHRF; ARDS; ANKUSH; COVID-19 infxn; Pneumonia; Morbid Obesity Interval history: Patient is seen today for: Acute Hypoxemic Respiratory Failure; ARDS; ANKUSH; COVID-19 infxn; Pneumonia Seen and examined at bedside; 24hour events reviewed; nursing and respiratory care staff consulted; no adverse overnight events reported to me; resting in bed; remains on supplemental oxygen; remains on continuous BIPAP at 100% FiO2; O2 sats about 91%; denies chest pains; denies N/V/F/C Objective Vital Signs - 12hr 04/18/21 04/18/21 04/18/21 01:30 02:00 02:30 Temperature Pulse Rate 87 78 79 Pulse Rate [ 85 Posterior] Respiratory 20 31 H 20 Rate Respiratory 26 H Rate [Posterior ] Blood Pressure 102/62 135/81 144/66 Blood Pressure [Right] O2 Sat by Pulse 93 94 96 Oximetry 04/18/21 04/18/21 04/18/21 03:00 03:30 04:00 Temperature Pulse Rate 70 77 73 Pulse Rate [ Posterior] Respiratory 10 L 32 H 21 Rate Respiratory Rate [Posterior ] Blood Pressure 129/71 120/72 121/65 Blood Pressure [Right] O2 Sat by Pulse 95 94 94 Oximetry 04/18/21 04/18/21 04/18/21 04:20 04:30 05:00 Temperature Pulse Rate 87 87 72 Pulse Rate [ Posterior] Respiratory 20 35 H 27 H Rate Respiratory Rate [Posterior ] Blood Pressure 102/62 126/76 107/44 Blood Pressure [Right] O2 Sat by Pulse 93 95 93 Oximetry 04/18/21 04/18/21 04/18/21 05:30 06:00 06:30 Temperature Pulse Rate 70 78 Pulse Rate [ Posterior] Respiratory 29 H Rate Respiratory Rate [Posterior ] Blood Pressure 117/51 134/61 122/71 Blood Pressure [Right] O2 Sat by Pulse 93 93 92 Oximetry 04/18/21 04/18/21 04/18/21 07:00 07:30 08:00 Temperature Pulse Rate 75 87 77 Pulse Rate [ Posterior] Respiratory Rate Respiratory Rate [Posterior ] Blood Pressure 158/88 156/82 132/80 Blood Pressure [Right] O2 Sat by Pulse 95 91 94 Oximetry 04/18/21 04/18/21 04/18/21 08:30 09:00 09:30 Temperature Pulse Rate 84 95 H Pulse Rate [ Posterior] Respiratory Rate Respiratory Rate [Posterior ] Blood Pressure 120/74 139/90 136/75 Blood Pressure [Right] O2 Sat by Pulse 90 89 78 L Oximetry 04/18/21 04/18/21 04/18/21 10:00 10:30 10:58 Temperature Pulse Rate Pulse Rate [ Posterior] Respiratory 26 H Rate Respiratory Rate [Posterior ] Blood Pressure 128/73 131/106 Blood Pressure [Right] O2 Sat by Pulse 88 89 92 Oximetry 04/18/21 12:51 Temperature 98.8 F Pulse Rate 94 H Pulse Rate [ Posterior] Respiratory 24 Rate Respiratory Rate [Posterior ] Blood Pressure Blood Pressure 128/68 [Right] O2 Sat by Pulse Oximetry Constitutional: appears uncomfortable, other (middle aged morbidly obese male with mildly increased respiratory effort at rest) Eyes: non-icteric ENT: oropharynx moist, other (BIPAP FFM) Neck: supple, no lymphadenopathy, no JVD, other (large circumference) Effort: mildly labored Ascultation: Bilateral: diminished breath sounds, rhonchi Percussion: Bilateral: not dull Cardiovascular: regular rate and rhythm Gastrointestinal: normoactive bowel sounds, soft, non-tender, non-distended (protuberant) Integumentary: normal Extremities: no cyanosis, pink and warm, pulses normal, no ischemia or petechiae, edema Neurologic: normal mental status, non-focal exam, pupils equal and round, CN II- XII normal, motor strength normal and Psychiatric: mood appropriate, affect normal CBC and BMP: 04/18/21 03:53 04/18/21 03:53 ABG, PT/INR, D-dimer: ABG ABG pH 7.382 pH Units (7.350-7.450) 04/18/21 Unknown ABG pCO2 36.2 mm Hg 04/18/21 Unknown ABG pO2 134.6 mm Hg (80.0-90.0) H 04/18/21 Unknown ABG O2 Saturation 98.6 % (95.0-99.0) 04/18/21 Unknown PT/INR, D-dimer D-Dimer 306.45 ng/mlDDU (0-234) H 04/17/21 16:40 Abnormal lab findings: Abnormal Labs 04/16/21 04/16/21 04/17/21 21:18 21:18 16:40 WBC 3.5 L RDW Plt Count 85 L Lymph % (Auto) [place] % (Auto) Lymph # (Auto) 0.7 L Seg Neutrophils % 74.2 H D-Dimer ABG pO2 ABG HCO3 ABG O2 Saturation ABG Base Excess ABG Hemoglobin Oxyhemoglobin Sodium 132 L Chloride 93.8 L Creatinine 0.7 L Glucose 125 H Calcium 8.2 L Ferritin 1918.0 H AST 83 H ALT 63 H Lactate Dehydrogenase C-Reactive Protein Albumin 3.7 L 04/17/21 04/17/21 04/17/21 16:40 16:40 16:40 WBC RDW Plt Count Lymph % (Auto) [place] % (Auto) Lymph # (Auto) Seg Neutrophils % D-Dimer 306.45 H ABG pO2 ABG HCO3 ABG O2 Saturation ABG Base Excess ABG Hemoglobin Oxyhemoglobin Sodium 135 L Chloride 96.2 L Creatinine Glucose 155 H Calcium Ferritin AST 72 H ALT 68 H Lactate Dehydrogenase 505 H C-Reactive Protein 16.30 H Albumin 3.5 L 04/17/21 04/17/21 04/18/21 18:45 Unknown 03:53 WBC RDW 13.1 L Plt Count 115 L Lymph % (Auto) 13.0 L [place] % (Auto) 8.7 H Lymph # (Auto) 1.0 L Seg Neutrophils % 78.2 H D-Dimer ABG pO2 56.8 L ABG HCO3 27.4 H ABG O2 Saturation 90.8 L ABG Base Excess 3.1 H ABG Hemoglobin 11.3 L 13.7 L Oxyhemoglobin 89.4 L Sodium Chloride Creatinine Glucose Calcium Ferritin AST ALT Lactate Dehydrogenase C-Reactive Protein Albumin 04/18/21 04/18/21 04/18/21 03:53 08:02 Unknown WBC RDW Plt Count Lymph % (Auto) [place] % (Auto) Lymph # (Auto) Seg Neutrophils % D-Dimer ABG pO2 64.3 L 134.6 H ABG HCO3 26.9 H ABG O2 Saturation 93.6 L ABG Base Excess -3.3 L ABG Hemoglobin 11.9 L Oxyhemoglobin 92.3 L Sodium 135 L Chloride 95.9 L Creatinine 0.7 L Glucose 149 H Calcium Ferritin AST 62 H ALT 59 H Lactate Dehydrogenase C-Reactive Protein Albumin 3.3 L Prior PFT's, U/S of legs: report reviewed (no DVT) Allied health notes reviewed: nursing
[2021-04-18] MEDS: REMDESIVIR 100 MG in SODIUM CHLORIDE 0.9% 250ML 250 ML IV SCH (23:04)
[2021-04-18] MEDS: SODIUM CHLORIDE 0.9% 50 ML IVPB IV SCH ×2 (23:04)
[2021-04-19] MEDS ORDERED: LORazepam 2 MG/ML VIAL ONE (01:44)
[2021-04-19] MEDS ORDERED: FUROSEMIDE 20 MG/2 ML INJ ONE (01:44)
[2021-04-19] MEDS ORDERED: LORazepam 2 MG/ML VIAL IV ONE (01:45)
[2021-04-19] MEDS ORDERED: FUROSEMIDE 20 MG/2 ML INJ IV ONE (01:46)
[2021-04-19] MEDS: BENZONATATE 100 MG CAP PO SCH ×3 (05:58→21:48)
[2021-04-19] MEDS: HEPARIN 5,000 UNIT/1 ML VIAL SUB-Q SCH ×3 (06:17→21:47)
--- NOTE | 2021-04-19 08:05 | Progress Note ---
Assessment and Plan Assessment and plan: hospital course: 04/18/21 Patient with recently diagnosed Covid-19 04/13/21 as outpatient. Presents with shortness of breath. Now on Remdesivir, Decadron, Rocephin, Zithromax. Patient also has sleep apnea uses CPAP at home. Pulm and ID following He is currently on BIPAP 04/19/21:clinically the patient appears to be in no distress despite being on 100% fio2 bipap mask. However, ABG data looks worse, Po2: 56.3. CXR demonstrates worsened pulmonary interstitial infiltrates. Discussed case with Dr. Lagunas. Low threshold for intubation should he worsen. Patient was advised on my encounter to maintain bipap mask and not remove it. Continue therapy with decadron, remdesivir. Dc abx due to low procal. Actemra ordered. Will follow ID recs. Consult PT to continue mobilizing patient. Encouraged patient to do so in presence of care staff Assessment and Plan: 1) Acute respiratory failure due to COVID-19 Current Visit: Yes Status: Acute Plan to address problem: Admit the patient to the medical telemetry. BIPAP FIo2 100% at this time DuoNeb by nebulizer every 4 hours. Dexamethasone 6 mg IV daily. Rocephin / Zithromax dc due to low procal blood culture and sputum culture. Follow Covid inflammatory marker. ID consulted on admission Pulmonology consulted. (2) COVID 19 Pneumonia Current Visit: No Status: Acute Plan to address problem: RT PCR Positive, patient is vaccinated x 2 with pfizer vaccine. management as above. (3) Hypertension Current Visit: Yes Status: Acute Plan to address problem: Hydralazine 10 mg IV every 6 hours as needed. We continue the home medication (4) GERD (gastroesophageal reflux disease) Current Visit: Yes Status: Acute Plan to address problem: Pepcid 20 mg p.o. twice daily for GI prophylaxis. (5) Arthritis Current Visit: Yes Status: Acute Plan to address problem: Tylenol 650 mg p.o. every 6 hours as needed. We will continue the home medication (7) DVT prophylaxis Current Visit: No Status: Acute Plan to address problem: Heparin 5000 units subcu every 8 hours for DVT prophylaxis. Pepcid 20 mg p.o. twice daily for GI prophylaxis. Patient is a full code Dispo: IMCU The high probability of a clinically significant, sudden or life threatening deterioration of the [pulmonary, neuro] system(s) required my full and direct attention, intervention and personal management. The aggregate critical care time was [60] minutes. This time is in addition to time spent performing reported procedures but includes the following: [x] Data Review and interpretation [x] Patient assessment and monitoring of vital signs [x] Documentation [x] Medication orders and management History Interval history: Patient on BIPAP on my encounter. SPO2: 90% on fio 2 100%. Able to bring himself to edge of bed. Discuss his lab/ imaging findings and worsened blood oxygenation. Hospitalist Physical - Physical exam Narrative exam: GENERAL: Not in acute distress, sitting up in bed, morbidly obese HEENT: Normocephalic. Atraumatic. Patient has moist mucous membranes. NECK: Supple. Trachea midline. CHEST/LUNGS: Bilateral crackles. HEART/CARDIOVASCULAR: Regular in rate and rhythm. S1 and S2 positive. ABDOMEN: Abdomen is soft, nontender. Patient has normal bowel sounds. SKIN: There is no rash. Warm and dry. NEURO: No focal motor deficit. Follows command. MUSCULOSKELETAL: No joint effusion or tenderness. EXTRIMITY: No edema, no cyanosis or clubbing. PSYCH: Cooperative. - Constitutional Vitals: Temp Pulse Resp BP Pulse Ox 97.6 F 73 20 139/81 87 04/19/21 04:00 04/19/21 06:11 04/19/21 06:11 04/19/21 06:11 04/19/21 06:11 General appearance: Present: no acute distress, obese Results - Labs CBC & Chem 7: 04/19/21 08:44 04/19/21 08:44 Labs: Laboratory Last Values WBC 7.7 K/mm3 (4.5-11.0) 04/18/21 03:53 RBC 4.53 M/mm3 (3.65-5.03) 04/18/21 03:53 Hgb 13.0 gm/dl (11.8-15.2) 04/18/21 03:53 Hct 40.2 % (35.5-45.6) 04/18/21 03:53 MCV 89 fl (84-94) 04/18/21 03:53 MCH 29 pg (28-32) 04/18/21 03:53 MCHC 32 % (32-34) 04/18/21 03:53 RDW 13.1 % (13.2-15.2) L 04/18/21 03:53 Plt Count 115 K/mm3 (140-440) L 04/18/21 03:53 Lymph % (Auto) 13.0 % (13.4-35.0) L 04/18/21 03:53 Harvey % (Auto) 8.7 % (0.0-7.3) H 04/18/21 03:53 Eos % (Auto) 0.0 % (0.0-4.3) 04/18/21 03:53 Baso % (Auto) 0.1 % (0.0-1.8) 04/18/21 03:53 Lymph # (Auto) 1.0 K/mm3 (1.2-5.4) L 04/18/21 03:53 Harvey # (Auto) 0.7 K/mm3 (0.0-0.8) 04/18/21 03:53 Eos # (Auto) 0.0 K/mm3 (0.0-0.4) 04/18/21 03:53 Baso # (Auto) 0.0 K/mm3 (0.0-0.1) 04/18/21 03:53 Seg Neutrophils % 78.2 % (40.0-70.0) H 04/18/21 03:53 Seg Neutrophils # 6.0 K/mm3 (1.8-7.7) 04/18/21 03:53 D-Dimer 306.45 ng/mlDDU (0-234) H 04/17/21 16:40 ABG pH 7.425 (7.320-7.450) 04/19/21 01:37 POC ABG pCO2 45.1 mmHg (32.0-48.0) 04/19/21 01:37 ABG pCO2 36.2 mm Hg 04/18/21 Unknown POC ABG pO2 56.3 mmHg (83-108) L 04/19/21 01:37 ABG pO2 134.6 mm Hg (80.0-90.0) H 04/18/21 Unknown POC ABG HCO3 28.9 04/19/21 01:37 ABG HCO3 21.0 mmol/L (20.0-26.0) 04/18/21 Unknown ABG O2 Saturation 88.9 (0-100) 04/19/21 01:37 ABG O2 Content 22.0 (0.0-44) 04/18/21 Unknown POC ABG Base Excess 3.9 04/19/21 01:37 ABG Base Excess -3.3 mmol/L (-2.0-3.0) L 04/18/21 Unknown ABG Hemoglobin 13.5 (12.0-17.5) 04/19/21 01:37 ABG Oxyhemoglobin 88.3 (94-98) L 04/19/21 01:37 ABG Carboxyhemoglobin 0.7 % (0.0-5.0) 04/18/21 Unknown ABG Methemoglobin 0.3 (0.0-1.5) 04/19/21 01:37 ABG Sodium 132.8 mmol/L (136.0-145.0) L 04/19/21 01:37 ABG Potassium 4.2 mmol/L (3.40-4.50) 04/19/21 01:37 ABG Chloride 96.0 mmol/L (98-107) L 04/19/21 01:37 ABG Glucose 145 mg/dL (65-95) H 04/19/21 01:37 Oxyhemoglobin 97.2 % (95.0-99.0) 04/18/21 Unknown Carboxyhemoglobin 0.4 (0.5-1.5) L 04/19/21 01:37 FiO2 100 % 04/18/21 Unknown FiO2 % 100.0 04/19/21 01:37 Sodium 135 mmol/L (137-145) L 04/18/21 03:53 Potassium 4.5 mmol/L (3.6-5.0) 04/18/21 03:53 Chloride 95.9 mmol/L (98-107) L 04/18/21 03:53 Carbon Dioxide 26 mmol/L (22-30) 04/18/21 03:53 Anion Gap 18 mmol/L 04/18/21 03:53 BUN 13 mg/dL (9-20) 04/18/21 03:53 Creatinine 0.7 mg/dL (0.8-1.3) L 04/18/21 03:53 Estimated GFR > 60 ml/min 04/18/21 03:53 BUN/Creatinine Ratio 19 % 04/18/21 03:53 Glucose 149 mg/dL (75-100) H 04/18/21 03:53 POC Glucose 135 mg/dL (70-105) H 04/19/21 07:28 Lactic Acid 1.10 mmol/L (0.7-2.0) 04/16/21 21:18 Calcium 8.7 mg/dL (8.4-10.2) 04/18/21 03:53 Ferritin 1918.0 ng/mL (30.0-300.0) H 04/17/21 16:40 Total Bilirubin 0.50 mg/dL (0.1-1.2) 04/18/21 03:53 AST 62 units/L (5-40) H 04/18/21 03:53 ALT 59 units/L (7-56) H 04/18/21 03:53 Alkaline Phosphatase 47 units/L (35-129) 04/18/21 03:53 Lactate Dehydrogenase 505 units/L (91-180) H 04/17/21 16:40 C-Reactive Protein 16.30 mg/dL (0.00-1.30) H 04/17/21 16:40 NT-Pro-B Natriuret Pep 79.47 pg/mL (0-900) 04/17/21 16:40 Total Protein 6.3 g/dL (6.3-8.2) 04/18/21 03:53 Albumin 3.3 g/dL (3.9-5) L 04/18/21 03:53 Albumin/Globulin Ratio 1.1 % 04/18/21 03:53 Procalcitonin 0.15 ng/mL (<0.15) 04/17/21 16:40 Arterial Blood Glucose 145 mg/dL (65-95) H 04/19/21 01:37 Arterial Blood Ionized Calcium 4.5 mg/dL (4.6-5.3) L 04/19/21 01:37 Martin/IV: Voiding Method Urinal Active Medications - Current Medications Current Medications: Generic Name Dose Route Start Last Admin Trade Name Freq PRN Reason Stop Dose Admin Acetaminophen 650 mg 04/17/21 01:45 Acetaminophen 325 Mg Tab PO Q4H PRN Pain MILD(1-3)/Fever >100.5/ALEXANDER Albuterol 2.5 mg 04/17/21 01:45 Albuterol 2.5 Mg/3 Ml Nebu IH Q4HRT PRN Shortness Of Breath Alprazolam 0.25 mg 04/17/21 22:00 04/18/21 23:10 Alprazolam 0.25 Mg Tab PO 0.25 mg QHS DEIRDRE Administration Ascorbic Acid 1,000 mg 04/17/21 02:00 04/18/21 23:10 Ascorbic Acid 500 Mg Tab PO 1,000 mg Q12HR DEIRDRE Administration Azithromycin 500 mg 04/18/21 10:00 04/18/21 09:30 Azithromycin 250 Mg Tab PO 500 mg QDAY DEIRDRE Administration Protocol Benzonatate 100 mg 04/17/21 06:00 04/19/21 05:58 Benzonatate 100 Mg Cap PO Not Given Q8HR DEIRDRE Cyclobenzaprine HCl 10 mg 04/17/21 01:49 04/18/21 09:28 Cyclobenzaprine 10 Mg Tab PO 10 mg TID PRN Administration Spasms Dexamethasone 6 mg 04/17/21 10:00 04/18/21 09:31 Dexamethasone 4 Mg/Ml Vial IV 04/25/21 10:01 6 mg DAILY DEIRDRE Administration Famotidine 20 mg 04/17/21 10:00 04/18/21 23:09 Famotidine 20 Mg Tab PO 20 mg BID DEIRDRE Administration Gabapentin 300 mg 04/17/21 08:00 04/18/21 23:09 Gabapentin 300 Mg Cap PO 300 mg TID DEIRDRE Administration Heparin Sodium (Porcine) 5,000 unit 04/17/21 06:00 04/19/21 06:17 Heparin 5,000 Unit/1 Ml Vial SUB-Q 5,000 unit Q8HR DEIRDRE Administration Hydralazine HCl 10 mg 04/17/21 02:00 Hydralazine 20 Mg/1 Ml Inj IV Q6H PRN Blood Pressure Hydromorphone HCl 0.5 mg 04/17/21 01:45 04/18/21 09:27 Hydromorphone 1 Mg/1 Ml Inj IV 0.5 mg Q3H PRN Administration Pain , Severe (7-10) Ceftriaxone Sodium 2 gm in 100 mls @ 200 mls/hr 04/17/21 02:00 04/18/21 11:21 Rocephin/Ns 2 Gm/100 Ml IV Infused Q24HR DEIRDRE Infusion Protocol REMDESIVIR 100 mg/ Sodium 250 mls @ 500 mls/hr 04/18/21 21:00 04/18/21 23:04 Chloride IV 04/21/21 21:29 500 mls/hr Q24HR@2100 DEIRDRE Administration Morphine Sulfate 2 mg 04/17/21 01:45 04/18/21 16:38 Morphine 2 Mg/1 Ml Inj IV 2 mg Q4H PRN Administration Pain, Moderate (4-6) Ondansetron HCl 4 mg 04/17/21 01:45 04/18/21 07:48 Ondansetron 4 Mg/2 Ml Inj IV 4 mg Q8H PRN Administration Nausea And Vomiting Sodium Chloride 10 ml 04/17/21 10:00 04/18/21 22:30 Sodium Chloride 0.9% 10 Ml Flush Syringe IV 10 ml BID DEIRDRE Administration Sodium Chloride 10 ml 04/17/21 01:45 Sodium Chloride 0.9% 10 Ml Flush Syringe IV PRN PRN LINE FLUSH Sodium Chloride 50 ml 04/17/21 21:00 04/18/21 23:04 Sodium Chloride 0.9% 50 Ml Ivpb IV 04/21/21 21:01 50 ml Q24HR@2100 DEIRDRE Administration Zinc Sulfate 220 mg 04/17/21 22:00 04/18/21 23:09 Zinc Sulfate 220 Mg Cap PO 220 mg BID DEIRDRE Administration
[2021-04-19] MEDS ORDERED: TOCILIZUMAB 800 MG in SODIUM CHLORIDE 0.9% 100 ML IV ONE (08:14)
--- NOTE | 2021-04-19 08:17 | Event Note ---
Date: 04/19/21 Procalcitonin low Actemra ordered continue other medications per ID recommendations
--- NOTE | 2021-04-19 09:06 | XRay Report ---
CHEST 1 VIEW 04/19/2021 8:00 AM INDICATION / CLINICAL INFORMATION: covid pna. COMPARISON: 04/16/2021 FINDINGS: SUPPORT DEVICES: None. HEART / MEDIASTINUM: Stable. LUNGS / PLEURA: Worsening diffuse bilateral pulmonary opacities. No pneumothorax. ADDITIONAL FINDINGS: No significant additional findings. IMPRESSION: 1. Worsening diffuse bilateral pulmonary opacities. Signer Name: Chester Peterson MD Signed: 04/19/2021 9:02 AM Workstation Name: [email or web address]
[2021-04-19 09:19] LABS: Alanine Aminotransferase 53 units/L (7-56); Albumin 3.6 g/dL (3.9-5); Blood Urea Nitrogen 20 mg/dL (9-20); Calcium 8.8 mg/dL (8.4-10.2); Hemolysis Index 10
[2021-04-19 09:22] LABS: BUN/Creatinine Ratio 29
[2021-04-19 09:31] LABS: Hematocrit 40.5 % (35.5-45.6); Hemoglobin 13.3 gm/dl (11.8-15.2); Mean Corpuscular HGB Conc 33 % (32-34); Mean Corpuscular Volume 88 fl (84-94); Platelet Count 144 K/mm3 (140-440); Red Blood Count 4.58 M/mm3 (3.65-5.03); Red Cell Distribution Width 12.8 % (13.2-15.2)
[2021-04-19] MEDS ORDERED: TOCILIZUMAB 810 MG in SODIUM CHLORIDE 0.9% 100 ML IV ONE (10:00)
[2021-04-19] MEDS: dexAMETHasone 4 MG/ML VIAL IV SCH (10:27)
[2021-04-19] MEDS: ASCORBIC ACID 500 MG TAB PO SCH ×2 (10:28→21:48)
[2021-04-19] MEDS: FAMOTIDINE 20 MG TAB PO SCH ×2 (10:28→21:48)
[2021-04-19] MEDS: ZINC SULFATE 220 MG CAP PO SCH ×2 (10:28→21:48)
--- NOTE | 2021-04-19 14:57 | Progress Note ---
Assessment and Plan Cultures: COVID-19 PCR: Positive outpatient. A/P: 51-year-old man past medical history morbid obesity, hypertension, CAD #Severe COVID-19 pneumonia: Patient presented with a week of symptoms, chest CT with diffuse groundglass opacities, admission O2 sats decreased on room air. Inflammatory markers elevated #Acute hypoxemic respiratory failure: Likely secondary to COVID-19 infection. Remains on BiPAP. #Morbid obesity: Associated with worse COVID-19 outcomes Recommendations: -Dexamethasone 6 mg IV/PO daily for 10 days -Remdesivir 200 mg IV q day x 1 followed by 100 mg IV q day x 4 days -Obtain q48-72h inflammatory markers - ferritin, Ddimer, CRP, LDH -Okay to stop antibiotics, procalcitonin low -Received Tocilizumab today -Anticoagulation per hospital protocol -Proning as able guarded prognosis Alyson Boswell MD [facility] ([facility]) Office [phone] Subjective Date of service: 04/19/21 Principal diagnosis: AHRF; ARDS; ANKUSH; COVID-19 infxn; Pneumonia; Morbid Obesity Interval history: Remains on BiPAP. Sats down to 87%. Tachypneic. Objective - Exam Narrative Exam: Physical exam deferred to minimize COVID-19 transmission during pandemic. ER and internal medicine physical examination notes reviewed. - Constitutional Vitals: Vital Signs Temp Pulse Resp BP Pulse Ox 98.8 F 64 40 H 154/94 94 04/19/21 08:00 04/19/21 12:42 04/19/21 12:42 04/19/21 12:42 04/19/21 12:42 Temperature -Last 24 Hours Temperature 98.8 F Temperature 97.6 F Temperature 97.6 F Temperature 97.6 F - Labs CBC & Chem 7: 04/19/21 08:44 04/19/21 08:44 Labs: Abnormal lab results 04/19/21 04/19/21 04/19/21 Range/Units 01:37 07:28 08:44 RDW (13.2-15.2) % POC ABG pO2 56.3 L (83-108) mmHg ABG Oxyhemoglobin 88.3 L (94-98) ABG Sodium 132.8 L (136.0-145.0) mmol/L ABG Chloride 96.0 L (98-107) mmol/L ABG Glucose 145 H (65-95) mg/dL Carboxyhemoglobin 0.4 L (0.5-1.5) Chloride 97.4 L (98-107) mmol/L Creatinine 0.7 L (0.8-1.3) mg/dL Glucose 130 H (75-100) mg/dL POC Glucose 135 H (70-105) mg/dL AST 53 H (5-40) units/L Albumin 3.6 L (3.9-5) g/dL Arterial Blood Glucose 145 H (65-95) mg/dL Arterial Blood Ionized Calcium 4.5 L (4.6-5.3) mg/dL 04/19/21 04/19/21 Range/Units 08:44 11:30 RDW 12.8 L (13.2-15.2) % POC ABG pO2 (83-108) mmHg ABG Oxyhemoglobin (94-98) ABG Sodium (136.0-145.0) mmol/L ABG Chloride (98-107) mmol/L ABG Glucose (65-95) mg/dL Carboxyhemoglobin (0.5-1.5) Chloride (98-107) mmol/L Creatinine (0.8-1.3) mg/dL Glucose (75-100) mg/dL POC Glucose 129 H (70-105) mg/dL AST (5-40) units/L Albumin (3.9-5) g/dL Arterial Blood Glucose (65-95) mg/dL Arterial Blood Ionized Calcium (4.6-5.3) mg/dL
[2021-04-19] MEDS: GABAPENTIN 300 MG CAP PO SCH ×2 (15:53→21:48)
--- NOTE | 2021-04-19 20:45 | Progress Note ---
Assessment and Plan 51-year-old male with history of morbid obesity, hypertension, migraine, coronary osteoarthritis and GERD and headache was brought to the emergency room because of progressive shortness of breath. Patient has history of Covid and he was admitted last week to the hospital. He states he was sent home with oxygen however he is needed 4 L of oxygen and his shortness of breath has gotten worse when he walks his oxygen drops down to the mid 80s. He has frequent cough. Patient states he has some body aches he denies having nausea. Patient stated that he came into contact with an individual who had tested positive for COVID-19 viral infection, but he admits that he has been fully vaccinated against COVID-19 viral infection.Patient smoking, alcohol or drug history not known at this time. In the emergency room patient CT scan of the chest showed scattered groundglass opacities at the bilateral lung suggesting atypical infectious process. Patient awake. Presently on BIPAP 09/04 Rate 30, FIO2 100% and O2 saturation running 94%. Patient has slight increase in work of breathing. Patient afebrile. No leukocytosis. Patients blood pressure 142/91, pulse 62, Respirations 30. Patient ABGs ABG on 100% FIO2. ABG pH 7.480 (7.320-7.450) H 04/19/21 17:21 POC ABG pCO2 37.3 mmHg (32.0-48.0) 04/19/21 17: ABG pCO2 36.2 mm Hg 04/18/21 Unknown POC ABG pO2 108.6 mmHg (83-108) H 04/19/21 17: ABG pO2 134.6 mm Hg (80.0-90.0) H 04/18/21 Unknown POC ABG HCO3 27.2 04/19/21 17: ABG O2 Saturation 98.2 (0-100) 04/19/21 17:21 No further history available at this time. Patient is on Decadron, Remdesivir, S/C Heparin, Famotidine, Albuterol/bude sonide aerosol treatments. I spent critical care time of 45 minutes, review the chart, obtain history, examine the patient, review chest , CT scan of chest , review lab results, talking to the nursing staff and respiratory therapy and work up plan of treatment in this critically ill patient. - Patient Problems (1) Acute respiratory failure due to COVID-19 Current Visit: Yes Status: Acute Plan to address problem: BIPAP 15/04, rate 30, FIO2 100% Continue Decadron. Continue Remdesivir. S/C Heparin. Famotidine. Albuterol/budesonide aerosol treatments. (2) GERD (gastroesophageal reflux disease) Current Visit: Yes Status: Acute Plan to address problem: Patient is on Famotidine. (3) Hypertension Current Visit: Yes Status: Acute Plan to address problem: Management as per primary care. (4) Community acquired pneumonia Current Visit: No Status: Acute Qualifiers: Laterality: unspecified laterality Qualified Code(s): J18.9 - Pneumonia, unspecified organism Plan to address problem: Antibiotics as per infectious diseases. (5) Suspected 2019 novel coronavirus infection Current Visit: No Status: Acute Plan to address problem: Recommend to check Humphries virus PCR. Subjective Date of service: 04/19/21 Principal diagnosis: AHRF; ARDS; ANKUSH; COVID-19 infxn; Pneumonia; Morbid Obesity Interval history: 51-year-old male with history of morbid obesity, hypertension, migraine, coronary osteoarthritis and GERD and headache was brought to the emergency room because of progressive shortness of breath. Patient has history of Covid and he was admitted last week to the hospital. He states he was sent home with oxygen however he is needed 4 L of oxygen and his shortness of breath has gotten worse when he walks his oxygen drops down to the mid 80s. He has frequent cough. Patient states he has some body aches he denies having nausea. Patient stated that he came into contact with an individual who had tested positive for COVID-19 viral infection, but he admits that he has been fully vaccinated against COVID-19 viral infection.Patient smoking, alcohol or drug history not known at this time. In the emergency room patient CT scan of the chest showed scattered groundglass opacities at the bilateral lung suggesting atypical infectious process. Patient awake. Presently on BIPAP / Rate 30, FIO2 100% and O2 saturation running 94%. Patient has slight increase in work of breathing. Patient afebrile. No leukocytosis. Patients blood pressure 142/91, pulse 62, Respirations 30. Patient ABGs ABG on 100% FIO2. ABG pH 7.480 (7.320-7.450) H 04/19/21 17:21 POC ABG pCO2 37.3 mmHg (32.0-48.0) 04/19/21 17:21 ABG pCO2 36.2 mm Hg 04/18/21 Unknown POC ABG pO2 108.6 mmHg (83-108) H 04/19/21 17:21 ABG pO2 134.6 mm Hg (80.0-90.0) H 04/18/21 Unknown POC ABG HCO3 27.2 04/19/21 17: ABG O2 Saturation 98.2 (0-100) 04/19/21 17:21 No further history available at this time. Patient is on Decadron, Remdesivir, S/C Heparin, Famotidine, Albuterol/budesonide aerosol treatments. Objective Vital Signs - 12hr 04/19/21 04/19/21 04/19/21 08:51 09:00 09:04 Temperature Pulse Rate 67 71 Pulse Rate [ 70 From Monitor] Respiratory 13 33 H 28 H Rate Blood Pressure 135/94 123/69 O2 Sat by Pulse 92 92 95 Oximetry 04/19/21 04/19/21 04/19/21 09:11 09:21 09:31 Temperature Pulse Rate 75 64 74 Pulse Rate [ From Monitor] Respiratory 20 12 16 Rate Blood Pressure 123/69 125/71 125/70 O2 Sat by Pulse 95 97 96 Oximetry 04/19/21 04/19/21 04/19/21 09:37 09:41 09:51 Temperature Pulse Rate 81 81 75 Pulse Rate [ From Monitor] Respiratory 38 H 24 16 Rate Blood Pressure 134/74 125/70 134/74 O2 Sat by Pulse 93 95 95 Oximetry 04/19/21 04/19/21 04/19/21 10:00 10:11 10:21 Temperature Pulse Rate 61 61 62 Pulse Rate [ From Monitor] Respiratory 30 H 30 H 30 H Rate Blood Pressure 120/69 120/69 127/71 O2 Sat by Pulse 98 99 98 Oximetry 04/19/21 04/19/21 04/19/21 10:30 10:41 10:51 Temperature Pulse Rate 64 67 Pulse Rate [ From Monitor] Respiratory 13 12 Rate Blood Pressure 134/77 134/77 127/82 O2 Sat by Pulse 93 95 96 Oximetry 04/19/21 04/19/21 04/19/21 11:00 11:11 11:21 Temperature Pulse Rate Pulse Rate [ From Monitor] Respiratory Rate Blood Pressure 123/90 123/90 122/56 O2 Sat by Pulse 92 93 96 Oximetry 04/19/21 04/19/21 04/19/21 11:30 11:41 11:51 Temperature Pulse Rate 71 69 76 Pulse Rate [ From Monitor] Respiratory 20 29 H 33 H Rate Blood Pressure 116/74 116/74 138/86 O2 Sat by Pulse 89 94 94 Oximetry 04/19/21 04/19/21 04/19/21 12:00 12:01 12:11 Temperature 98.5 F Pulse Rate 70 90 Pulse Rate [ From Monitor] Respiratory 30 H 28 H Rate Blood Pressure 138/90 138/90 O2 Sat by Pulse 92 93 Oximetry 04/19/21 04/19/21 04/19/21 12:21 12:30 12:41 Temperature Pulse Rate 78 85 64 Pulse Rate [ From Monitor] Respiratory 20 25 H 14 Rate Blood Pressure 148/87 154/94 154/94 O2 Sat by Pulse 94 91 93 Oximetry 04/19/21 04/19/21 04/19/21 12:42 12:51 13:00 Temperature Pulse Rate 64 71 66 Pulse Rate [ From Monitor] Respiratory 40 H 35 H 41 H Rate Blood Pressure 154/94 135/91 141/81 O2 Sat by Pulse 94 95 95 Oximetry 04/19/21 04/19/21 04/19/21 13:11 13:21 13:30 Temperature Pulse Rate 66 68 68 Pulse Rate [ From Monitor] Respiratory 48 H 36 H 43 H Rate Blood Pressure 141/81 147/82 139/79 O2 Sat by Pulse 94 92 95 Oximetry 04/19/21 04/19/21 04/19/21 13:41 13:51 14:00 Temperature Pulse Rate 78 66 67 Pulse Rate [ From Monitor] Respiratory 24 13 16 Rate Blood Pressure 139/79 120/75 124/72 O2 Sat by Pulse 92 96 94 Oximetry 04/19/21 04/19/21 04/19/21 14:11 14:21 14:30 Temperature Pulse Rate 78 74 63 Pulse Rate [ From Monitor] Respiratory 7 L 31 H 30 H Rate Blood Pressure 124/72 142/83 125/66 O2 Sat by Pulse 91 92 93 Oximetry 04/19/21 04/19/21 04/19/21 14:41 14:51 15:00 Temperature Pulse Rate 70 88 68 Pulse Rate [ From Monitor] Respiratory 25 H 20 18 Rate Blood Pressure 125/66 124/66 147/90 O2 Sat by Pulse 97 98 91 Oximetry 04/19/21 04/19/21 04/19/21 15:11 15:21 15:30 Temperature Pulse Rate 62 64 Pulse Rate [ From Monitor] Respiratory 29 H 30 H Rate Blood Pressure 147/90 146/90 139/81 O2 Sat by Pulse 95 96 93 Oximetry 04/19/21 04/19/21 04/19/21 15:41 15:51 16:00 Temperature 98.3 F Pulse Rate 74 Pulse Rate [ From Monitor] Respiratory 23 Rate Blood Pressure 139/81 158/101 138/74 O2 Sat by Pulse 93 93 92 Oximetry 04/19/21 04/19/21 04/19/21 16:11 16:21 16:30 Temperature Pulse Rate 66 65 70 Pulse Rate [ From Monitor] Respiratory 28 H 18 26 H Rate Blood Pressure 138/74 145/82 151/82 O2 Sat by Pulse 93 93 92 Oximetry 04/19/21 04/19/21 04/19/21 16:41 16:51 17:01 Temperature Pulse Rate 63 65 64 Pulse Rate [ From Monitor] Respiratory 31 H 30 H 13 Rate Blood Pressure 151/82 126/73 126/73 O2 Sat by Pulse 94 96 97 Oximetry 04/19/21 04/19/21 04/19/21 17:04 17:11 17:20 Temperature Pulse Rate 82 70 68 Pulse Rate [ From Monitor] Respiratory 42 H 13 12 Rate Blood Pressure 126/73 142/92 O2 Sat by Pulse 93 97 93 Oximetry 04/19/21 04/19/21 04/19/21 17:30 17:41 17:51 Temperature Pulse Rate 73 63 65 Pulse Rate [ From Monitor] Respiratory 14 11 L 16 Rate Blood Pressure 135/85 135/85 131/86 O2 Sat by Pulse 97 93 92 Oximetry 04/19/21 04/19/21 04/19/21 18:00 18:11 18:21 Temperature Pulse Rate 77 89 67 Pulse Rate [ From Monitor] Respiratory 21 28 H 18 Rate Blood Pressure 140/86 140/86 123/73 O2 Sat by Pulse 92 89 90 Oximetry 04/19/21 04/19/21 04/19/21 18:30 18:41 18:51 Temperature Pulse Rate 59 L 66 73 Pulse Rate [ From Monitor] Respiratory 28 H 6 L 19 Rate Blood Pressure 139/79 139/79 138/77 O2 Sat by Pulse 88 92 89 Oximetry 04/19/21 04/19/21 04/19/21 19:00 19:11 19:21 Temperature Pulse Rate 69 70 77 Pulse Rate [ From Monitor] Respiratory 12 13 17 Rate Blood Pressure 134/72 134/72 115/62 O2 Sat by Pulse 91 91 94 Oximetry 04/19/21 04/19/21 04/19/21 19:30 19:41 19:51 Temperature 98.5 F Pulse Rate 61 73 Pulse Rate [ From Monitor] Respiratory 39 H 11 L 18 Rate Blood Pressure 136/79 136/79 135/72 O2 Sat by Pulse 93 90 92 Oximetry 04/19/21 04/19/21 20:00 20:11 Temperature Pulse Rate 64 70 Pulse Rate [ From Monitor] Respiratory 17 19 Rate Blood Pressure 121/71 121/71 O2 Sat by Pulse 92 92 Oximetry Constitutional: alert, appears uncomfortable, other (middle aged morbidly obese male with mildly increased respiratory effort at rest on BIPAP.) Eyes: non-icteric ENT: oropharynx moist, other (BIPAP FFM) Neck: supple, no lymphadenopathy, no JVD, other (large circumference) Effort: mildly labored Ascultation: Bilateral: diminished breath sounds, rhonchi Percussion: Bilateral: not dull Cardiovascular: regular rate and rhythm Gastrointestinal: normoactive bowel sounds, soft, non-tender, non-distended (protuberant) Integumentary: normal Extremities: no cyanosis, pink and warm, pulses normal, no ischemia or petechiae, edema Neurologic: normal mental status, non-focal exam, pupils equal and round, CN II- XII normal Psychiatric: mood appropriate, affect normal CBC and BMP: 04/20/21 11:08 04/20/21 11:08 ABG, PT/INR, D-dimer: ABG ABG pH 7.480 (7.320-7.450) H 04/19/21 17:21 POC ABG pCO2 37.3 mmHg (32.0-48.0) 04/19/21 17:21 ABG pCO2 36.2 mm Hg 04/18/21 Unknown POC ABG pO2 108.6 mmHg (83-108) H 04/19/21 17:21 ABG pO2 134.6 mm Hg (80.0-90.0) H 04/18/21 Unknown POC ABG HCO3 27.2 04/19/21 17:21 ABG O2 Saturation 98.2 (0-100) 04/19/21 17:21 PT/INR, D-dimer D-Dimer 306.45 ng/mlDDU (0-234) H 04/17/21 16:40 Abnormal lab findings: Abnormal Labs 04/16/21 04/16/21 04/17/21 21:18 21:18 16:40 WBC 3.5 L RDW Plt Count 85 L Lymph % (Auto) [place] % (Auto) Lymph # (Auto) 0.7 L Seg Neutrophils % 74.2 H D-Dimer ABG pH POC ABG pO2 ABG pO2 ABG HCO3 ABG O2 Saturation ABG Base Excess ABG Hemoglobin ABG Oxyhemoglobin ABG Sodium ABG Chloride ABG Glucose Oxyhemoglobin Carboxyhemoglobin Sodium 132 L Chloride 93.8 L Creatinine 0.7 L Glucose 125 H POC Glucose Calcium 8.2 L Ferritin 1918.0 H AST 83 H ALT 63 H Lactate Dehydrogenase C-Reactive Protein Albumin 3.7 L Arterial Blood Glucose Arterial Blood Ionized Calcium 04/17/21 04/17/21 04/17/21 16:40 16:40 16:40 WBC RDW Plt Count Lymph % (Auto) [place] % (Auto) Lymph # (Auto) Seg Neutrophils % D-Dimer 306.45 H ABG pH POC ABG pO2 ABG pO2 ABG HCO3 ABG O2 Saturation ABG Base Excess ABG Hemoglobin ABG Oxyhemoglobin ABG Sodium ABG Chloride ABG Glucose Oxyhemoglobin Carboxyhemoglobin Sodium 135 L Chloride 96.2 L Creatinine Glucose 155 H POC Glucose Calcium Ferritin AST 72 H ALT 68 H Lactate Dehydrogenase 505 H C-Reactive Protein 16.30 H Albumin 3.5 L Arterial Blood Glucose Arterial Blood Ionized Calcium 04/17/21 04/17/21 04/18/21 18:45 Unknown 03:53 WBC RDW 13.1 L Plt Count 115 L Lymph % (Auto) 13.0 L [place] % (Auto) 8.7 H Lymph # (Auto) 1.0 L Seg Neutrophils % 78.2 H D-Dimer ABG pH POC ABG pO2 ABG pO2 56.8 L ABG HCO3 27.4 H ABG O2 Saturation 90.8 L ABG Base Excess 3.1 H ABG Hemoglobin 11.3 L 13.7 L ABG Oxyhemoglobin ABG Sodium ABG Chloride ABG Glucose Oxyhemoglobin 89.4 L Carboxyhemoglobin Sodium Chloride Creatinine Glucose POC Glucose Calcium Ferritin AST ALT Lactate Dehydrogenase C-Reactive Protein Albumin Arterial Blood Glucose Arterial Blood Ionized Calcium 04/18/21 04/18/21 04/18/21 03:53 08:02 Unknown WBC RDW Plt Count Lymph % (Auto) [place] % (Auto) Lymph # (Auto) Seg Neutrophils % D-Dimer ABG pH POC ABG pO2 ABG pO2 64.3 L 134.6 H ABG HCO3 26.9 H ABG O2 Saturation 93.6 L ABG Base Excess -3.3 L ABG Hemoglobin 11.9 L ABG Oxyhemoglobin ABG Sodium ABG Chloride ABG Glucose Oxyhemoglobin 92.3 L Carboxyhemoglobin Sodium 135 L Chloride 95.9 L Creatinine 0.7 L Glucose 149 H POC Glucose Calcium Ferritin AST 62 H ALT 59 H Lactate Dehydrogenase C-Reactive Protein Albumin 3.3 L Arterial Blood Glucose Arterial Blood Ionized Calcium 04/19/21 04/19/21 04/19/21 01:37 07:28 08:44 WBC RDW Plt Count Lymph % (Auto) [place] % (Auto) Lymph # (Auto) Seg Neutrophils % D-Dimer ABG pH POC ABG pO2 56.3 L ABG pO2 ABG HCO3 ABG O2 Saturation ABG Base Excess ABG Hemoglobin ABG Oxyhemoglobin 88.3 L ABG Sodium 132.8 L ABG Chloride 96.0 L ABG Glucose 145 H Oxyhemoglobin Carboxyhemoglobin 0.4 L Sodium Chloride 97.4 L Creatinine 0.7 L Glucose 130 H POC Glucose 135 H Calcium Ferritin AST 53 H ALT Lactate Dehydrogenase C-Reactive Protein Albumin 3.6 L Arterial Blood Glucose 145 H Arterial Blood Ionized Calcium 4.5 L 04/19/21 04/19/21 04/19/21 08:44 11:30 16:53 WBC RDW 12.8 L Plt Count Lymph % (Auto) [place] % (Auto) Lymph # (Auto) Seg Neutrophils % D-Dimer ABG pH POC ABG pO2 ABG pO2 ABG HCO3 ABG O2 Saturation ABG Base Excess ABG Hemoglobin ABG Oxyhemoglobin ABG Sodium ABG Chloride ABG Glucose Oxyhemoglobin Carboxyhemoglobin Sodium Chloride Creatinine Glucose POC Glucose 129 H 146 H Calcium Ferritin AST ALT Lactate Dehydrogenase C-Reactive Protein Albumin Arterial Blood Glucose Arterial Blood Ionized Calcium 04/19/21 17:21 WBC RDW Plt Count Lymph % (Auto) [place] % (Auto) Lymph # (Auto) Seg Neutrophils % D-Dimer ABG pH 7.480 H POC ABG pO2 108.6 H ABG pO2 ABG HCO3 ABG O2 Saturation ABG Base Excess ABG Hemoglobin ABG Oxyhemoglobin ABG Sodium 134.1 L ABG Chloride 97.0 L ABG Glucose 167 H Oxyhemoglobin Carboxyhemoglobin 0.4 L Sodium Chloride Creatinine Glucose POC Glucose Calcium Ferritin AST ALT Lactate Dehydrogenase C-Reactive Protein Albumin Arterial Blood Glucose 167 H Arterial Blood Ionized Calcium Chest x-ray: report reviewed, image reviewed Additional Studies: CHEST 1 VIEW 04/19/2021 8:00 AM INDICATION / CLINICAL INFORMATION: covid pna. COMPARISON: 04/16/2021 FINDINGS: SUPPORT DEVICES: None. HEART / MEDIASTINUM: Stable. LUNGS / PLEURA: Worsening diffuse bilateral pulmonary opacities. No pneumothorax. ADDITIONAL FINDINGS: No significant additional findings. IMPRESSION: 1. Worsening diffuse bilateral pulmonary opacities. Allied health notes reviewed: nursing
[2021-04-19] MEDS: BUDESONIDE 0.5 MG/2 ML NEBU IH SCH (21:02)
[2021-04-19] MEDS: ALPRAZolam 0.25 MG TAB PO SCH (21:47)
[2021-04-19] MEDS: REMDESIVIR 100 MG in SODIUM CHLORIDE 0.9% 250ML 250 ML IV SCH (21:47)
[2021-04-19] MEDS: SODIUM CHLORIDE 0.9% 50 ML IVPB IV SCH (21:47)
--- NOTE | 2021-04-20 05:16 | XRay Report ---
CHEST 1 VIEW INDICATION / CLINICAL INFORMATION: covid 19 pna. COMPARISON: 04/19/2021 FINDINGS: SUPPORT DEVICES: None. HEART / MEDIASTINUM: No significant abnormality. LUNGS / PLEURA: Extensive bilateral pulmonary opacities with areas of consolidation bilaterally. No p neumothorax. ADDITIONAL FINDINGS: No significant additional findings. IMPRESSION: 1. Stable appearance of extensive bilateral pulmonary opacities. Signer Name: Makeda Marte MD Signed: 04/20/2021 5:11 AM Workstation Name: [id number]
[2021-04-20] MEDS: BENZONATATE 100 MG CAP PO SCH ×3 (05:32→22:12)
[2021-04-20] MEDS: HEPARIN 5,000 UNIT/1 ML VIAL SUB-Q SCH ×3 (05:36→22:11)
[2021-04-20] MEDS: GABAPENTIN 300 MG CAP PO SCH ×4 (10:06→20:52)
[2021-04-20] MEDS: dexAMETHasone 4 MG/ML VIAL IV SCH (10:55)
[2021-04-20] MEDS: ZINC SULFATE 220 MG CAP PO SCH ×2 (10:55→22:12)
[2021-04-20 11:30] LABS: Basophils % (Auto) 0.1 % (0.0-1.8); Eosinophils % (Auto) 0.1 % (0.0-4.3); Hematocrit 42.4 % (35.5-45.6); Hemoglobin 13.7 gm/dl (11.8-15.2); Lymphocytes # (Auto) 1.3 K/mm3 (1.2-5.4); Lymphocytes % (Auto) 19.7 % (13.4-35.0); Mean Corpuscular HGB Conc 32 % (32-34); Mean Corpuscular Volume 88 fl (84-94); Monocytes # (Auto) 0.9 K/mm3 (0.0-0.8); Platelet Count 159 K/mm3 (140-440); Red Cell Distribution Width 12.9 % (13.2-15.2)
[2021-04-20 11:41] LABS: Alanine Aminotransferase 50 units/L (7-56); Albumin 3.5 g/dL (3.9-5); BUN/Creatinine Ratio 33; Blood Urea Nitrogen 26 mg/dL (9-20); Hemolysis Index 7
--- NOTE | 2021-04-20 11:43 | Progress Note ---
Assessment and Plan Assessment and plan: hospital course: 04/18/21 Patient with recently diagnosed Covid-19 04/13/21 as outpatient. Presents with shortness of breath. Now on Remdesivir, Decadron, Rocephin, Zithromax. Patient also has sleep apnea uses CPAP at home. Pulm and ID following He is currently on BIPAP 04/19/21:clinically the patient appears to be in no distress despite being on 100% fio2 bipap mask. However, ABG data looks worse, Po2: 56.3. CXR demonstrates worsened pulmonary interstitial infiltrates. Discussed case with Dr. Lagunas. Low threshold for intubation should he worsen. Patient was advised on my encounter to maintain bipap mask and not remove it. Continue therapy with decadron, remdesivir. Dc abx due to low procal. Actemra ordered. Will follow ID recs. Consult PT to continue mobilizing patient. Encouraged patient to do so in presence of care staff 04/20/2021: Remains bipap dependent. No acute changes in respiratory status. Unfortunately he is low threshold for intubation. Will follow pulmonology/ID recommendations. Assessment and Plan: 1) Acute respiratory failure due to COVID-19 Current Visit: Yes Status: Acute Plan to address problem: Admit the patient to the medical telemetry. BIPAP FIo2 100% at this time DuoNeb by nebulizer every 4 hours. Dexamethasone 6 mg IV daily. Rocephin / Zithromax dc due to low procal s/p actemra Currently receiving Remdesivir x5. blood culture and sputum culture. Follow Covid inflammatory marker. ID consulted on admission Pulmonology consulted. (2) COVID 19 Pneumonia Current Visit: No Status: Acute Plan to address problem: RT PCR Positive, patient is vaccinated x 2 with pfizer vaccine. management as above. (3) Hypertension Current Visit: Yes Status: Acute Plan to address problem: Hydralazine 10 mg IV every 6 hours as needed. We continue the home medication (4) GERD (gastroesophageal reflux disease) Current Visit: Yes Status: Acute Plan to address problem: Pepcid 20 mg p.o. twice daily for GI prophylaxis. (5) Arthritis Current Visit: Yes Status: Acute Plan to address problem: Tylenol 650 mg p.o. every 6 hours as needed. We will continue the home medication (7) DVT prophylaxis Current Visit: No Status: Acute Plan to address problem: Heparin 5000 units subcu every 8 hours for DVT prophylaxis. Pepcid 20 mg p.o. twice daily for GI prophylaxis. Patient is a full code Dispo: IMCU The high probability of a clinically significant, sudden or life threatening deterioration of the [pulmonary, neuro] system(s) required my full and direct attention, intervention and personal management. The aggregate critical care time was [60] minutes. This time is in addition to time spent performing reported procedures but includes the following: [x] Data Review and interpretation [x] Patient assessment and monitoring of vital signs [x] Documentation [x] Medication orders and management History Interval history: Patient remains bipap dependent. Hospitalist Physical - Physical exam Narrative exam: GENERAL: Not in acute distress, sitting up in bed, morbidly obese HEENT: Normocephalic. Atraumatic. Patient has moist mucous membranes. NECK: Supple. Trachea midline. CHEST/LUNGS: Bilateral crackles. HEART/CARDIOVASCULAR: Regular in rate and rhythm. S1 and S2 positive. ABDOMEN: Abdomen is soft, nontender. Patient has normal bowel sounds. SKIN: There is no rash. Warm and dry. NEURO: No focal motor deficit. Follows command. MUSCULOSKELETAL: No joint effusion or tenderness. EXTRIMITY: No edema, no cyanosis or clubbing. PSYCH: Cooperative. - Constitutional Vitals: Temp Pulse Resp BP Pulse Ox 98.3 F 56 L 30 H 151/77 91 04/20/21 03:49 04/20/21 09:00 04/20/21 09:00 04/20/21 09:00 04/20/21 09:00 General appearance: Present: no acute distress, obese Results - Labs CBC & Chem 7: 04/20/21 11:08 04/20/21 11:08 Labs: Laboratory Last Values WBC 6.4 K/mm3 (4.5-11.0) 04/20/21 11:08 RBC 4.80 M/mm3 (3.65-5.03) 04/20/21 11:08 Hgb 13.7 gm/dl (11.8-15.2) 04/20/21 11:08 Hct 42.4 % (35.5-45.6) 04/20/21 11:08 MCV 88 fl (84-94) 04/20/21 11:08 MCH 28 pg (28-32) 04/20/21 11:08 MCHC 32 % (32-34) 04/20/21 11:08 RDW 12.9 % (13.2-15.2) L 04/20/21 11:08 Plt Count 159 K/mm3 (140-440) 04/20/21 11:08 Lymph % (Auto) 19.7 % (13.4-35.0) 04/20/21 11:08 [place] % (Auto) 14.0 % (0.0-7.3) H 04/20/21 11:08 Eos % (Auto) 0.1 % (0.0-4.3) 04/20/21 11:08 Baso % (Auto) 0.1 % (0.0-1.8) 04/20/21 11:08 Lymph # (Auto) 1.3 K/mm3 (1.2-5.4) 04/20/21 11:08 [place] # (Auto) 0.9 K/mm3 (0.0-0.8) H 04/20/21 11:08 Eos # (Auto) 0.0 K/mm3 (0.0-0.4) 04/20/21 11:08 Baso # (Auto) 0.0 K/mm3 (0.0-0.1) 04/20/21 11:08 Seg Neutrophils % 66.1 % (40.0-70.0) 04/20/21 11:08 Seg Neutrophils # 4.3 K/mm3 (1.8-7.7) 04/20/21 11:08 D-Dimer 306.45 ng/mlDDU (0-234) H 04/17/21 16:40 ABG pH 7.480 (7.320-7.450) H 04/19/21 17:21 POC ABG pCO2 37.3 mmHg (32.0-48.0) 04/19/21 17: ABG pCO2 36.2 mm Hg 04/18/21 Unknown POC ABG pO2 108.6 mmHg (83-108) H 04/19/21 17: ABG pO2 134.6 mm Hg (80.0-90.0) H 04/18/21 Unknown POC ABG HCO3 27.2 04/19/21 17: ABG HCO3 21.0 mmol/L (20.0-26.0) 04/18/21 Unknown ABG O2 Saturation 98.2 (0-100) 04/19/21 17:21 ABG O2 Content 22.0 (0.0-44) 04/18/21 Unknown POC ABG Base Excess 3.7 04/19/21 17: ABG Base Excess -3.3 mmol/L (-2.0-3.0) L 04/18/21 Unknown ABG Hemoglobin 14.0 (12.0-17.5) 04/19/21 17:21 ABG Oxyhemoglobin 97.5 (94-98) 04/19/21 17:21 ABG Carboxyhemoglobin 0.7 % (0.0-5.0) 04/18/21 Unknown ABG Methemoglobin 0.3 (0.0-1.5) 04/19/21 17: ABG Sodium 134.1 mmol/L (136.0-145.0) L 04/19/21 17: ABG Potassium 4.4 mmol/L (3.40-4.50) 04/19/21 17:21 ABG Chloride 97.0 mmol/L (98-107) L 04/19/21 17:21 ABG Glucose 167 mg/dL (65-95) H 04/19/21 17:21 Oxyhemoglobin 97.2 % (95.0-99.0) 04/18/21 Unknown Carboxyhemoglobin 0.4 (0.5-1.5) L 04/19/21 17:21 FiO2 100 % 04/18/21 Unknown FiO2 % 100 04/19/21 17:21 Sodium 138 mmol/L (137-145) 04/20/21 11:08 Potassium 5.0 mmol/L (3.6-5.0) 04/20/21 11:08 Chloride 98.5 mmol/L (98-107) 04/20/21 11:08 Carbon Dioxide 28 mmol/L (22-30) 04/20/21 11:08 Anion Gap 17 mmol/L 04/20/21 11:08 BUN 26 mg/dL (9-20) H 04/20/21 11:08 Creatinine 0.8 mg/dL (0.8-1.3) 04/20/21 11:08 Estimated GFR > 60 ml/min 04/20/21 11:08 BUN/Creatinine Ratio 33 % 04/20/21 11:08 Glucose 121 mg/dL (75-100) H 04/20/21 11:08 POC Glucose 128 mg/dL (70-105) H 04/20/21 07:18 Lactic Acid 1.10 mmol/L (0.7-2.0) 04/16/21 21:18 Calcium 9.0 mg/dL (8.4-10.2) 04/20/21 11:08 Ferritin 1918.0 ng/mL (30.0-300.0) H 04/17/21 16:40 Total Bilirubin 0.70 mg/dL (0.1-1.2) 04/20/21 11:08 AST 46 units/L (5-40) H 04/20/21 11:08 ALT 50 units/L (7-56) 04/20/21 11:08 Alkaline Phosphatase 66 units/L (35-129) 04/20/21 11:08 Lactate Dehydrogenase 647 units/L (91-180) H 04/20/21 11:08 C-Reactive Protein 5.50 mg/dL (0.00-1.30) H 04/20/21 11:08 NT-Pro-B Natriuret Pep 79.47 pg/mL (0-900) 04/17/21 16:40 Total Protein 6.9 g/dL (6.3-8.2) 04/20/21 11:08 Albumin 3.5 g/dL (3.9-5) L 04/20/21 11:08 Albumin/Globulin Ratio 1.0 % 04/20/21 11:08 Procalcitonin 0.15 ng/mL (<0.15) 04/17/21 16:40 Arterial Blood Glucose 167 mg/dL (65-95) H 04/19/21 17:21 Arterial Blood Ionized Calcium 4.6 mg/dL (4.6-5.3) 04/19/21 17:21 Martin/IV: Voiding Method Urinal Active Medications - Current Medications Current Medications: Generic Name Dose Route Start Last Admin Trade Name Freq PRN Reason Stop Dose Admin Acetaminophen 650 mg 04/17/21 01:45 Acetaminophen 325 Mg Tab PO Q4H PRN Pain MILD(1-3)/Fever >100.5/ALEXANDER Albuterol 2.5 mg 04/17/21 01:45 Albuterol 2.5 Mg/3 Ml Nebu IH Q4HRT PRN Shortness Of Breath Alprazolam 0.25 mg 04/17/21 22:00 04/19/21 21:47 Alprazolam 0.25 Mg Tab PO 0.25 mg QHS DEIRDRE Administration Ascorbic Acid 1,000 mg 04/17/21 02:00 04/19/21 21:48 Ascorbic Acid 500 Mg Tab PO 1,000 mg Q12HR DEIRDRE Administration Benzonatate 100 mg 04/17/21 06:00 04/20/21 05:32 Benzonatate 100 Mg Cap PO Not Given Q8HR DEIRDRE Budesonide 0.5 mg 04/19/21 20:00 04/19/21 21:02 Budesonide 0.5 Mg/2 Ml Nebu IH Not Given Q12HRT REPLACED BY [facility] Cyclobenzaprine HCl 10 mg 04/17/21 01:49 04/18/21 09:28 Cyclobenzaprine 10 Mg Tab PO 10 mg TID PRN Administration Spasms Dexamethasone 6 mg 04/17/21 10:00 04/20/21 10:55 Dexamethasone 4 Mg/Ml Vial IV 04/25/21 10:01 6 mg DAILY DEIRDRE Administration Famotidine 20 mg 04/17/21 10:00 04/19/21 21:48 Famotidine 20 Mg Tab PO 20 mg BID DEIRDRE Administration Gabapentin 300 mg 04/17/21 08:00 04/20/21 10:12 Gabapentin 300 Mg Cap PO 300 mg TID DEIRDRE Administration Heparin Sodium (Porcine) 5,000 unit 04/17/21 06:00 04/20/21 05:36 Heparin 5,000 Unit/1 Ml Vial SUB-Q 5,000 unit Q8HR DEIRDRE Administration Hydralazine HCl 10 mg 04/17/21 02:00 Hydralazine 20 Mg/1 Ml Inj IV Q6H PRN Blood Pressure Hydromorphone HCl 0.5 mg 04/17/21 01:45 04/18/21 09:27 Hydromorphone 1 Mg/1 Ml Inj IV 0.5 mg Q3H PRN Administration Pain , Severe (7-10) REMDESIVIR 100 mg/ Sodium 250 mls @ 500 mls/hr 04/18/21 21:00 04/19/21 21:47 Chloride IV 04/21/21 21:29 500 mls/hr Q24HR@2100 DEIRDRE Administration Morphine Sulfate 2 mg 04/17/21 01:45 04/18/21 16:38 Morphine 2 Mg/1 Ml Inj IV 2 mg Q4H PRN Administration Pain, Moderate (4-6) Ondansetron HCl 4 mg 04/17/21 01:45 04/18/21 07:48 Ondansetron 4 Mg/2 Ml Inj IV 4 mg Q8H PRN Administration Nausea And Vomiting Sodium Chloride 10 ml 04/17/21 10:00 04/20/21 10:55 Sodium Chloride 0.9% 10 Ml Flush Syringe IV 10 ml BID DEIRDRE Administration Sodium Chloride 10 ml 04/17/21 01:45 Sodium Chloride 0.9% 10 Ml Flush Syringe IV PRN PRN LINE FLUSH Sodium Chloride 50 ml 04/17/21 21:00 04/19/21 21:47 Sodium Chloride 0.9% 50 Ml Ivpb IV 04/21/21 21:01 50 ml Q24HR@2100 DEIRDRE Administration Zinc Sulfate 220 mg 04/17/21 22:00 04/20/21 10:55 Zinc Sulfate 220 Mg Cap PO 220 mg BID DEIRDRE Administration
[2021-04-20] MEDS: BUDESONIDE 0.5 MG/2 ML NEBU IH SCH (11:46)
[2021-04-20] MEDS: FAMOTIDINE 20 MG TAB PO SCH ×2 (12:06→22:11)
[2021-04-20] MEDS: ASCORBIC ACID 500 MG TAB PO SCH ×2 (12:06→22:12)
[2021-04-20] MEDS: LORazepam 2 MG/ML VIAL IV PRN ×2 (13:35→22:12)
--- NOTE | 2021-04-20 20:36 | Progress Note ---
Assessment and Plan 51-year-old male with history of morbid obesity, hypertension, migraine, coronary osteoarthritis and GERD and headache was brought to the emergency room because of progressive shortness of breath. Patient has history of Covid and he was admitted last week to the hospital. He states he was sent home with oxygen however he is needed 4 L of oxygen and his shortness of breath has gotten worse when he walks his oxygen drops down to the mid 80s. He has frequent cough. Patient states he has some body aches he denies having nausea. Patient stated that he came into contact with an individual who had tested positive for COVID-19 viral infection, but he admits that he has been fully vaccinated against COVID-19 viral infection.Patient smoking, alcohol or drug history not known at this time. In the emergency room patient CT scan of the chest showed scattered groundglass opacities at the bilateral lung suggesting atypical infectious process. Patient awake. Presently on BIPAP 09/04 Rate 30, FIO2 100% and O2 saturation running 94%. Patient says breathing little better than yesterday. Patient afebrile. No leukocytosis. Patients blood pressure 152/87, pulse 59, Respirations 30. Stable appearance of extensive bilateral pulmonary opacities. Patient ABGs ABG on 100% FIO2. ABG pH 7.480 (7.320-7.450) H 04/19/21 17:21 POC ABG pCO2 37.3 mmHg (32.0-48.0) 04/19/21 17:21 ABG pCO2 36.2 mm Hg 04/18/21 Unknown POC ABG pO2 108.6 mmHg (83-108) H 04/19/21 17: ABG pO2 134.6 mm Hg (80.0-90.0) H 04/18/21 Unknown POC ABG HCO3 27.2 04/19/21 17:21 ABG O2 Saturation 98.2 (0-100) 04/19/21 17:21 No further history available at this time. Patient is on Decadron, Remdesivir, S/C Heparin, Famotidine, Albuterol/budesonide aerosol treatments. I spent critical care time of 35 minutes, review the chart, obtain history, examine the patient, review chest , CT scan of chest , review lab results, talking to the nursing staff and respiratory therapy and work up plan of treatment in this critically ill patient. - Patient Problems (1) Acute respiratory failure due to COVID-19 Current Visit: Yes Status: Acute Plan to address problem: BIPAP /, rate 30, FIO2 100% Continue Decadron. Continue Remdesivir. S/C Heparin. Famotidine. Albuterol/budesonide aerosol treatments. (2) GERD (gastroesophageal reflux disease) Current Visit: Yes Status: Acute Plan to address problem: Patient is on Famotidine. (3) Hypertension Current Visit: Yes Status: Acute Plan to address problem: Management as per primary care. (4) Community acquired pneumonia Current Visit: No Status: Acute Qualifiers: Laterality: unspecified laterality Qualified Code(s): J18.9 - Pneumonia, unspecified organism Plan to address problem: Antibiotics as per infectious diseases. (5) Coronavirus infection Current Visit: Yes Status: Acute Plan to address problem: Patient is on decadron, Remdesivir. Management as per infectious diseases. Subjective Date of service: 04/20/21 Principal diagnosis: AHRF; ARDS; ANKUSH; COVID-19 infxn; Pneumonia; Morbid Obesity Interval history: 51-year-old male with history of morbid obesity, hypertension, migraine, coronary osteoarthritis and GERD and headache was brought to the emergency room because of progressive shortness of breath. Patient has history of Covid and he was admitted last week to the hospital. He states he was sent home with oxygen however he is needed 4 L of oxygen and his shortness of breath has gotten worse when he walks his oxygen drops down to the mid 80s. He has frequent cough. Patient states he has some body aches he denies having nausea. Patient stated that he came into contact with an individual who had tested positive for COVID-19 viral infection, but he admits that he has been fully vaccinated against COVID-19 viral infection.Patient smoking, alcohol or drug history not known at this time. In the emergency room patient CT scan of the chest showed scattered groundglass opacities at the bilateral lung suggesting atypical infectious process. Patient awake. Presently on BIPAP /12 Rate 30, FIO2 100% and O2 saturation running 94%. Patient says breathing little better than yesterday. Patient afebrile. No leukocytosis. Patients blood pressure 152/87, pulse 59, Respirations 30. Chest xray done 04/20/2021 reported Stable appearance of extensive bilateral pulmonary opacities. Patient ABGs ABG on 100% FIO2. ABG pH 7.480 (7.320-7.450) H 04/19/21 17:21 POC ABG pCO2 37.3 mmHg (32.0-48.0) 04/19/21 17: ABG pCO2 36.2 mm Hg 04/18/21 Unknown POC ABG pO2 108.6 mmHg (83-108) H 04/19/21 17: ABG pO2 134.6 mm Hg (80.0-90.0) H 04/18/21 Unknown POC ABG HCO3 27.2 04/19/21 17: ABG O2 Saturation 98.2 (0-100) 04/19/21 17: No further history available at this time. Patient is on Decadron, Remdesivir, S/C Heparin, Famotidine, Albuterol/budesonide aerosol treatments. Objective Vital Signs - 12hr 04/20/21 04/20/21 04/20/21 09:00 10:01 10:30 Temperature Pulse Rate 56 L 57 L 59 L Pulse Rate [ 68 From Monitor] Respiratory 38 H 31 H 36 H Rate Blood Pressure 151/77 127/59 179/89 O2 Sat by Pulse 91 91 94 Oximetry 04/20/21 04/20/21 04/20/21 11:01 12:00 13:01 Temperature 97.6 F Pulse Rate 60 64 61 Pulse Rate [ From Monitor] Respiratory 33 H 26 H 30 H Rate Blood Pressure 176/88 188/98 244/127 O2 Sat by Pulse 90 92 94 Oximetry 04/20/21 04/20/21 04/20/21 13:31 14:00 14:30 Temperature Pulse Rate 60 61 67 Pulse Rate [ From Monitor] Respiratory 38 H 15 15 Rate Blood Pressure 244/127 131/72 127/76 O2 Sat by Pulse 91 93 96 Oximetry 04/20/21 04/20/21 04/20/21 15:00 15:30 16:00 Temperature 97.0 F L Pulse Rate 72 62 67 Pulse Rate [ From Monitor] Respiratory 34 H 32 H 15 Rate Blood Pressure 150/80 165/81 177/87 O2 Sat by Pulse 97 96 Oximetry 04/20/21 04/20/21 04/20/21 16:30 17:00 17:31 Temperature Pulse Rate 64 68 71 Pulse Rate [ From Monitor] Respiratory 37 H 26 H 18 Rate Blood Pressure 171/81 144/85 147/78 O2 Sat by Pulse 96 95 94 Oximetry 04/20/21 04/20/21 04/20/21 17:40 18:01 18:30 Temperature Pulse Rate 80 61 60 Pulse Rate [ From Monitor] Respiratory 36 H 25 H 27 H Rate Blood Pressure 179/89 175/95 148/84 O2 Sat by Pulse 95 96 94 Oximetry 04/20/21 04/20/21 19:01 19:30 Temperature Pulse Rate 57 L 59 L Pulse Rate [ From Monitor] Respiratory 29 H 7 L Rate Blood Pressure 156/88 179/89 O2 Sat by Pulse 96 95 Oximetry Constitutional: alert, appears uncomfortable, other (middle aged morbidly obese male with mildly increased respiratory effort at rest on BIPAP.) Eyes: non-icteric ENT: oropharynx moist, other (BIPAP FFM) Neck: supple, no lymphadenopathy, no JVD, other (large circumference) Effort: mildly labored Ascultation: Bilateral: diminished breath sounds, rhonchi Percussion: Bilateral: not dull Cardiovascular: regular rate and rhythm Gastrointestinal: normoactive bowel sounds, soft, non-tender, non-distended (protuberant) Integumentary: normal Extremities: no cyanosis, pink and warm, pulses normal, no ischemia or petechiae, edema Neurologic: normal mental status, non-focal exam, pupils equal and round, CN II- XII normal Psychiatric: mood appropriate, affect normal CBC and BMP: 04/21/21 11:34 04/21/21 11:34 ABG, PT/INR, D-dimer: ABG ABG pH 7.480 (7.320-7.450) H 04/19/21 17:21 POC ABG pCO2 37.3 mmHg (32.0-48.0) 04/19/21 17: ABG pCO2 36.2 mm Hg 04/18/21 Unknown POC ABG pO2 108.6 mmHg (83-108) H 04/19/21 17:21 ABG pO2 134.6 mm Hg (80.0-90.0) H 04/18/21 Unknown POC ABG HCO3 27.2 04/19/21 17:21 ABG O2 Saturation 98.2 (0-100) 04/19/21 17:21 PT/INR, D-dimer D-Dimer 1082.55 ng/mlDDU (0-234) H 04/20/21 11:08 Abnormal lab findings: Abnormal Labs 04/16/21 04/16/21 04/17/21 21:18 21:18 16:40 WBC 3.5 L RDW Plt Count 85 L Lymph % (Auto) [place] % (Auto) Lymph # (Auto) 0.7 L [place] # (Auto) Seg Neutrophils % 74.2 H D-Dimer ABG pH POC ABG pO2 ABG pO2 ABG HCO3 ABG O2 Saturation ABG Base Excess ABG Hemoglobin ABG Oxyhemoglobin ABG Sodium ABG Chloride ABG Glucose Oxyhemoglobin Carboxyhemoglobin Sodium 132 L Chloride 93.8 L BUN Creatinine 0.7 L Glucose 125 H POC Glucose Calcium 8.2 L Ferritin 1918.0 H AST 83 H ALT 63 H Lactate Dehydrogenase C-Reactive Protein Albumin 3.7 L Arterial Blood Glucose Arterial Blood Ionized Calcium Coronavirus (PCR) 04/17/21 04/17/21 04/17/21 16:40 16:40 16:40 WBC RDW Plt Count Lymph % (Auto) [place] % (Auto) Lymph # (Auto) [place] # (Auto) Seg Neutrophils % D-Dimer 306.45 H ABG pH POC ABG pO2 ABG pO2 ABG HCO3 ABG O2 Saturation ABG Base Excess ABG Hemoglobin ABG Oxyhemoglobin ABG Sodium ABG Chloride ABG Glucose Oxyhemoglobin Carboxyhemoglobin Sodium 135 L Chloride 96.2 L BUN Creatinine Glucose 155 H POC Glucose Calcium Ferritin AST 72 H ALT 68 H Lactate Dehydrogenase 505 H C-Reactive Protein 16.30 H Albumin 3.5 L Arterial Blood Glucose Arterial Blood Ionized Calcium Coronavirus (PCR) 04/17/21 04/17/21 04/18/21 18:45 Unknown 03:53 WBC RDW 13.1 L Plt Count 115 L Lymph % (Auto) 13.0 L [place] % (Auto) 8.7 H Lymph # (Auto) 1.0 L [place] # (Auto) Seg Neutrophils % 78.2 H D-Dimer ABG pH POC ABG pO2 ABG pO2 56.8 L ABG HCO3 27.4 H ABG O2 Saturation 90.8 L ABG Base Excess 3.1 H ABG Hemoglobin 11.3 L 13.7 L ABG Oxyhemoglobin ABG Sodium ABG Chloride ABG Glucose Oxyhemoglobin 89.4 L Carboxyhemoglobin Sodium Chloride BUN Creatinine Glucose POC Glucose Calcium Ferritin AST ALT Lactate Dehydrogenase C-Reactive Protein Albumin Arterial Blood Glucose Arterial Blood Ionized Calcium Coronavirus (PCR) 04/18/21 04/18/21 04/18/21 03:53 08:02 Unknown WBC RDW Plt Count Lymph % (Auto) [place] % (Auto) Lymph # (Auto) [place] # (Auto) Seg Neutrophils % D-Dimer ABG pH POC ABG pO2 ABG pO2 64.3 L 134.6 H ABG HCO3 26.9 H ABG O2 Saturation 93.6 L ABG Base Excess -3.3 L ABG Hemoglobin 11.9 L ABG Oxyhemoglobin ABG Sodium ABG Chloride ABG Glucose Oxyhemoglobin 92.3 L Carboxyhemoglobin Sodium 135 L Chloride 95.9 L BUN Creatinine 0.7 L Glucose 149 H POC Glucose Calcium Ferritin AST 62 H ALT 59 H Lactate Dehydrogenase C-Reactive Protein Albumin 3.3 L Arterial Blood Glucose Arterial Blood Ionized Calcium Coronavirus (PCR) 04/19/21 04/19/21 04/19/21 01:37 07:28 08:44 WBC RDW Plt Count Lymph % (Auto) [place] % (Auto) Lymph # (Auto) [place] # (Auto) Seg Neutrophils % D-Dimer ABG pH POC ABG pO2 56.3 L ABG pO2 ABG HCO3 ABG O2 Saturation ABG Base Excess ABG Hemoglobin ABG Oxyhemoglobin 88.3 L ABG Sodium 132.8 L ABG Chloride 96.0 L ABG Glucose 145 H Oxyhemoglobin Carboxyhemoglobin 0.4 L Sodium Chloride 97.4 L BUN Creatinine 0.7 L Glucose 130 H POC Glucose 135 H Calcium Ferritin AST 53 H ALT Lactate Dehydrogenase C-Reactive Protein Albumin 3.6 L Arterial Blood Glucose 145 H Arterial Blood Ionized Calcium 4.5 L Coronavirus (PCR) 04/19/21 04/19/21 04/19/21 08:44 11:30 16:53 WBC RDW 12.8 L Plt Count Lymph % (Auto) [place] % (Auto) Lymph # (Auto) [place] # (Auto) Seg Neutrophils % D-Dimer ABG pH POC ABG pO2 ABG pO2 ABG HCO3 ABG O2 Saturation ABG Base Excess ABG Hemoglobin ABG Oxyhemoglobin ABG Sodium ABG Chloride ABG Glucose Oxyhemoglobin Carboxyhemoglobin Sodium Chloride BUN Creatinine Glucose POC Glucose 129 H 146 H Calcium Ferritin AST ALT Lactate Dehydrogenase C-Reactive Protein Albumin Arterial Blood Glucose Arterial Blood Ionized Calcium Coronavirus (PCR) 04/19/21 04/19/21 04/20/21 17:21 21:07 07:18 WBC RDW Plt Count Lymph % (Auto) [place] % (Auto) Lymph # (Auto) [place] # (Auto) Seg Neutrophils % D-Dimer ABG pH 7.480 H POC ABG pO2 108.6 H ABG pO2 ABG HCO3 ABG O2 Saturation ABG Base Excess ABG Hemoglobin ABG Oxyhemoglobin ABG Sodium 134.1 L ABG Chloride 97.0 L ABG Glucose 167 H Oxyhemoglobin Carboxyhemoglobin 0.4 L Sodium Chloride BUN Creatinine Glucose POC Glucose 152 H 128 H Calcium Ferritin AST ALT Lactate Dehydrogenase C-Reactive Protein Albumin Arterial Blood Glucose 167 H Arterial Blood Ionized Calcium Coronavirus (PCR) 04/20/21 04/20/21 04/20/21 11:08 11:08 11:08 WBC RDW Plt Count Lymph % (Auto) [place] % (Auto) Lymph # (Auto) [place] # (Auto) Seg Neutrophils % D-Dimer 1082.55 H ABG pH POC ABG pO2 ABG pO2 ABG HCO3 ABG O2 Saturation ABG Base Excess ABG Hemoglobin ABG Oxyhemoglobin ABG Sodium ABG Chloride ABG Glucose Oxyhemoglobin Carboxyhemoglobin Sodium Chloride BUN 26 H Creatinine Glucose 121 H POC Glucose Calcium Ferritin 1389.0 H AST 46 H ALT Lactate Dehydrogenase 647 H C-Reactive Protein 5.50 H Albumin 3.5 L Arterial Blood Glucose Arterial Blood Ionized Calcium Coronavirus (PCR) 04/20/21 04/20/21 04/20/21 11:08 16:04 Unknown WBC RDW 12.9 L Plt Count Lymph % (Auto) [place] % (Auto) 14.0 H Lymph # (Auto) [place] # (Auto) 0.9 H Seg Neutrophils % D-Dimer ABG pH POC ABG pO2 ABG pO2 ABG HCO3 ABG O2 Saturation ABG Base Excess ABG Hemoglobin ABG Oxyhemoglobin ABG Sodium ABG Chloride ABG Glucose Oxyhemoglobin Carboxyhemoglobin Sodium Chloride BUN Creatinine Glucose POC Glucose 159 H Calcium Ferritin AST ALT Lactate Dehydrogenase C-Reactive Protein Albumin Arterial Blood Glucose Arterial Blood Ionized Calcium Coronavirus (PCR) Positive A Chest x-ray: report reviewed, image reviewed Additional Studies: CHEST 1 VIEW 04/20/2021 INDICATION / CLINICAL INFORMATION: covid 19 pna. COMPARISON: 04/19/2021 FINDINGS: SUPPORT DEVICES: None. HEART / MEDIASTINUM: No significant abnormality. LUNGS / PLEURA: Extensive bilateral pulmonary opacities with areas of consolidation bilaterally. No pneumothorax. ADDITIONAL FINDINGS: No significant additional findings. IMPRESSION: 1. Stable appearance of extensive bilateral pulmonary opacities. Allied health notes reviewed: nursing
[2021-04-20] MEDS: SODIUM CHLORIDE 0.9% 50 ML IVPB IV SCH (22:10)
[2021-04-20] MEDS: REMDESIVIR 100 MG in SODIUM CHLORIDE 0.9% 250ML 250 ML IV SCH (22:10)
[2021-04-20] MEDS: ALPRAZolam 0.25 MG TAB PO SCH (22:12)
[2021-04-21] MEDS: hydrALAZINE 20 MG/1 ML INJ IV PRN (01:16)
[2021-04-21] MEDS: BENZONATATE 100 MG CAP PO SCH ×3 (05:28→21:30)
[2021-04-21] MEDS: HEPARIN 5,000 UNIT/1 ML VIAL SUB-Q SCH ×3 (05:32→22:17)
[2021-04-21] MEDS: BUDESONIDE 0.5 MG/2 ML NEBU IH SCH ×2 (05:49→10:18)
[2021-04-21] MEDS: GABAPENTIN 300 MG CAP PO SCH ×3 (08:16→21:30)
--- NOTE | 2021-04-21 08:41 | Progress Note ---
Assessment and Plan Assessment and plan: hospital course: 04/18/21 Patient with recently diagnosed Covid-19 04/13/21 as outpatient. Presents with shortness of breath. Now on Remdesivir, Decadron, Rocephin, Zithromax. Patient also has sleep apnea uses CPAP at home. Pulm and ID following He is currently on BIPAP 04/19/21:clinically the patient appears to be in no distress despite being on 100% fio2 bipap mask. However, ABG data looks worse, Po2: 56.3. CXR demonstrates worsened pulmonary interstitial infiltrates. Discussed case with Dr. Lagunas. Low threshold for intubation should he worsen. Patient was advised on my encounter to maintain bipap mask and not remove it. Continue therapy with decadron, remdesivir. Dc abx due to low procal. Actemra ordered. Will follow ID recs. Consult PT to continue mobilizing patient. Encouraged patient to do so in presence of care staff 04/20/2021: Remains bipap dependent. No acute changes in respiratory status. Unfortunately he is low threshold for intubation. Will follow pulmonology/ID recommendations. 04/21/2021: Remains bipap dependent. Currenlty 100%. No changes overnight. Will follow pulm/ID recs. Assessment and Plan: 1) Acute respiratory failure due to COVID-19 Current Visit: Yes Status: Acute Plan to address problem: Admit the patient to the medical telemetry. BIPAP FIo2 100% at this time DuoNeb by nebulizer every 4 hours. Dexamethasone 6 mg IV daily. Rocephin / Zithromax dc due to low procal s/p actemra Currently receiving Remdesivir x5. blood culture and sputum culture. Follow Covid inflammatory marker. ID consulted on admission Pulmonology consulted. (2) COVID 19 Pneumonia Current Visit: No Status: Acute Plan to address problem: RT PCR Positive, patient is vaccinated x 2 with pfizer vaccine. management as above. (3) Hypertension Current Visit: Yes Status: Acute Plan to address problem: Hydralazine 10 mg IV every 6 hours as needed. We continue the home medication (4) GERD (gastroesophageal reflux disease) Current Visit: Yes Status: Acute Plan to address problem: Pepcid 20 mg p.o. twice daily for GI prophylaxis. (5) Arthritis Current Visit: Yes Status: Acute Plan to address problem: Tylenol 650 mg p.o. every 6 hours as needed. We will continue the home medication (7) DVT prophylaxis Current Visit: No Status: Acute Plan to address problem: Heparin 5000 units subcu every 8 hours for DVT prophylaxis. Pepcid 20 mg p.o. twice daily for GI prophylaxis. Patient is a full code Dispo: IMCU The high probability of a clinically significant, sudden or life threatening deterioration of the [pulmonary, neuro] system(s) required my full and direct attention, intervention and personal management. The aggregate critical care time was [60] minutes. This time is in addition to time spent performing reported procedures but includes the following: [x] Data Review and interpretation [x] Patient assessment and monitoring of vital signs [x] Documentation [x] Medication orders and management History Interval history: No overnight events. Remains on bipap 100%. Patient is able to lift himself to the edge of the bed. Encouraged patient to remain mobile and engage with care staff. Hospitalist Physical - Physical exam Narrative exam: GENERAL: Not in acute distress, sitting up in bed, morbidly obese HEENT: Normocephalic. Atraumatic. Patient has moist mucous membranes. NECK: Supple. Trachea midline. CHEST/LUNGS: Bilateral crackles. HEART/CARDIOVASCULAR: Regular in rate and rhythm. S1 and S2 positive. ABDOMEN: Abdomen is soft, nontender. Patient has normal bowel sounds. SKIN: There is no rash. Warm and dry. NEURO: No focal motor deficit. Follows command. MUSCULOSKELETAL: No joint effusion or tenderness. EXTRIMITY: No edema, no cyanosis or clubbing. PSYCH: Cooperative. - Constitutional Vitals: Temp Pulse Resp BP Pulse Ox 98 F 56 L 19 144/82 97 04/21/21 08:38 04/21/21 06:00 04/21/21 06:00 04/21/21 06:00 04/21/21 06:00 General appearance: Present: no acute distress, obese Results - Labs CBC & Chem 7: 04/21/21 11:34 04/21/21 11:34 Labs: Laboratory Last Values WBC 6.4 K/mm3 (4.5-11.0) 04/20/21 11:08 RBC 4.80 M/mm3 (3.65-5.03) 04/20/21 11:08 Hgb 13.7 gm/dl (11.8-15.2) 04/20/21 11:08 Hct 42.4 % (35.5-45.6) 04/20/21 11:08 MCV 88 fl (84-94) 04/20/21 11:08 MCH 28 pg (28-32) 04/20/21 11:08 MCHC 32 % (32-34) 04/20/21 11:08 RDW 12.9 % (13.2-15.2) L 04/20/21 11:08 Plt Count 159 K/mm3 (140-440) 04/20/21 11:08 Lymph % (Auto) 19.7 % (13.4-35.0) 04/20/21 11:08 [place] % (Auto) 14.0 % (0.0-7.3) H 04/20/21 11:08 Eos % (Auto) 0.1 % (0.0-4.3) 04/20/21 11:08 Baso % (Auto) 0.1 % (0.0-1.8) 04/20/21 11:08 Lymph # (Auto) 1.3 K/mm3 (1.2-5.4) 04/20/21 11:08 [place] # (Auto) 0.9 K/mm3 (0.0-0.8) H 04/20/21 11:08 Eos # (Auto) 0.0 K/mm3 (0.0-0.4) 04/20/21 11:08 Baso # (Auto) 0.0 K/mm3 (0.0-0.1) 04/20/21 11:08 Seg Neutrophils % 66.1 % (40.0-70.0) 04/20/21 11:08 Seg Neutrophils # 4.3 K/mm3 (1.8-7.7) 04/20/21 11:08 D-Dimer 1082.55 ng/mlDDU (0-234) H 04/20/21 11:08 ABG pH 7.480 (7.320-7.450) H 04/19/21 17:21 POC ABG pCO2 37.3 mmHg (32.0-48.0) 04/19/21 17:21 ABG pCO2 36.2 mm Hg 04/18/21 Unknown POC ABG pO2 108.6 mmHg (83-108) H 04/19/21 17:21 ABG pO2 134.6 mm Hg (80.0-90.0) H 04/18/21 Unknown POC ABG HCO3 27.2 04/19/21 17: ABG HCO3 21.0 mmol/L (20.0-26.0) 04/18/21 Unknown ABG O2 Saturation 98.2 (0-100) 04/19/21 17: ABG O2 Content 22.0 (0.0-44) 04/18/21 Unknown POC ABG Base Excess 3.7 04/19/21 17: ABG Base Excess -3.3 mmol/L (-2.0-3.0) L 04/18/21 Unknown ABG Hemoglobin 14.0 (12.0-17.5) 04/19/21 17: ABG Oxyhemoglobin 97.5 (94-98) 04/19/21 17: ABG Carboxyhemoglobin 0.7 % (0.0-5.0) 04/18/21 Unknown ABG Methemoglobin 0.3 (0.0-1.5) 04/19/21 17: ABG Sodium 134.1 mmol/L (136.0-145.0) L 04/19/21 17: ABG Potassium 4.4 mmol/L (3.40-4.50) 04/19/21 17: ABG Chloride 97.0 mmol/L (98-107) L 04/19/21 17: ABG Glucose 167 mg/dL (65-95) H 04/19/21 17: Oxyhemoglobin 97.2 % (95.0-99.0) 04/18/21 Unknown Carboxyhemoglobin 0.4 (0.5-1.5) L 04/19/21 17: FiO2 100 % 04/18/21 Unknown FiO2 % 100 04/19/21 17: Sodium 138 mmol/L (137-145) 04/20/21 11:08 Potassium 5.0 mmol/L (3.6-5.0) 04/20/21 11:08 Chloride 98.5 mmol/L (98-107) 04/20/21 11:08 Carbon Dioxide 28 mmol/L (22-30) 04/20/21 11:08 Anion Gap 17 mmol/L 04/20/21 11:08 BUN 26 mg/dL (9-20) H 04/20/21 11:08 Creatinine 0.8 mg/dL (0.8-1.3) 04/20/21 11:08 Estimated GFR > 60 ml/min 04/20/21 11:08 BUN/Creatinine Ratio 33 % 04/20/21 11:08 Glucose 121 mg/dL (75-100) H 04/20/21 11:08 POC Glucose 149 mg/dL (70-105) H 04/20/21 21:10 Lactic Acid 1.10 mmol/L (0.7-2.0) 04/16/21 21:18 Calcium 9.0 mg/dL (8.4-10.2) 04/20/21 11:08 Ferritin 1389.0 ng/mL (30.0-300.0) H 04/20/21 11:08 Total Bilirubin 0.70 mg/dL (0.1-1.2) 04/20/21 11:08 AST 46 units/L (5-40) H 04/20/21 11:08 ALT 50 units/L (7-56) 04/20/21 11:08 Alkaline Phosphatase 66 units/L (35-129) 04/20/21 11:08 Lactate Dehydrogenase 647 units/L (91-180) H 04/20/21 11:08 C-Reactive Protein 5.50 mg/dL (0.00-1.30) H 04/20/21 11:08 NT-Pro-B Natriuret Pep 79.47 pg/mL (0-900) 04/17/21 16:40 Total Protein 6.9 g/dL (6.3-8.2) 04/20/21 11:08 Albumin 3.5 g/dL (3.9-5) L 04/20/21 11:08 Albumin/Globulin Ratio 1.0 % 04/20/21 11:08 Procalcitonin 0.15 ng/mL (<0.15) 04/17/21 16:40 Arterial Blood Glucose 167 mg/dL (65-95) H 04/19/21 17:21 Arterial Blood Ionized Calcium 4.6 mg/dL (4.6-5.3) 04/19/21 17:21 Coronavirus (PCR) Positive (Negative) A 04/20/21 Unknown Martin/IV: Voiding Method Bedside Commode Active Medications - Current Medications Current Medications: Generic Name Dose Route Start Last Admin Trade Name Freq PRN Reason Stop Dose Admin Acetaminophen 650 mg 04/17/21 01:45 Acetaminophen 325 Mg Tab PO Q4H PRN Pain MILD(1-3)/Fever >100.5/ALEXANDER Albuterol 2.5 mg 04/17/21 01:45 Albuterol 2.5 Mg/3 Ml Nebu IH Q4HRT PRN Shortness Of Breath Alprazolam 0.25 mg 04/17/21 22:00 04/20/21 22:12 Alprazolam 0.25 Mg Tab PO Not Given QHS DEIRDRE Ascorbic Acid 1,000 mg 04/17/21 02:00 04/20/21 22:12 Ascorbic Acid 500 Mg Tab PO Not Given Q12HR DEIRDRE Benzonatate 100 mg 04/17/21 06:00 04/21/21 05:28 Benzonatate 100 Mg Cap PO Not Given Q8HR DEIRDRE Budesonide 0.5 mg 04/19/21 20:00 04/21/21 05:49 Budesonide 0.5 Mg/2 Ml Nebu IH Not Given Q12HRT DEIRDRE Cyclobenzaprine HCl 10 mg 04/17/21 01:49 04/18/21 09:28 Cyclobenzaprine 10 Mg Tab PO 10 mg TID PRN Administration Spasms Dexamethasone 6 mg 04/17/21 10:00 04/20/21 10:55 Dexamethasone 4 Mg/Ml Vial IV 04/25/21 10:01 6 mg DAILY DEIRDRE Administration Famotidine 20 mg 04/17/21 10:00 04/20/21 22:11 Famotidine 20 Mg Tab PO Not Given BID DEIRDRE Gabapentin 300 mg 04/17/21 08:00 04/20/21 20:52 Gabapentin 300 Mg Cap PO Not Given TID DEIRDRE Heparin Sodium (Porcine) 5,000 unit 04/17/21 06:00 04/21/21 05:32 Heparin 5,000 Unit/1 Ml Vial SUB-Q 5,000 unit Q8HR DEIRDRE Administration Hydralazine HCl 10 mg 04/17/21 02:00 04/21/21 01:16 Hydralazine 20 Mg/1 Ml Inj IV 10 mg Q6H PRN Administration Blood Pressure Hydromorphone HCl 0.5 mg 04/17/21 01:45 04/18/21 09:27 Hydromorphone 1 Mg/1 Ml Inj IV 0.5 mg Q3H PRN Administration Pain , Severe (7-10) REMDESIVIR 100 mg/ Sodium 250 mls @ 500 mls/hr 04/18/21 21:00 04/20/21 22:10 Chloride IV 04/21/21 21:29 500 mls/hr Q24HR@2100 DEIRDRE Administration Lorazepam 1 mg 04/20/21 13:19 04/20/21 22:12 Lorazepam 2 Mg/Ml Vial IV 1 mg Q4H PRN Administration Anxiety Morphine Sulfate 2 mg 04/17/21 01:45 04/18/21 16:38 Morphine 2 Mg/1 Ml Inj IV 2 mg Q4H PRN Administration Pain, Moderate (4-6) Ondansetron HCl 4 mg 04/17/21 01:45 04/18/21 07:48 Ondansetron 4 Mg/2 Ml Inj IV 4 mg Q8H PRN Administration Nausea And Vomiting Sodium Chloride 10 ml 04/17/21 10:00 04/20/21 22:11 Sodium Chloride 0.9% 10 Ml Flush Syringe IV 10 ml BID DEIRDRE Administration Sodium Chloride 10 ml 04/17/21 01:45 Sodium Chloride 0.9% 10 Ml Flush Syringe IV PRN PRN LINE FLUSH Sodium Chloride 50 ml 04/17/21 21:00 04/20/21 22:10 Sodium Chloride 0.9% 50 Ml Ivpb IV 04/21/21 21:01 50 ml Q24HR@2100 DEIRDRE Administration Zinc Sulfate 220 mg 04/17/21 22:00 04/20/21 22:12 Zinc Sulfate 220 Mg Cap PO Not Given BID DEIRDRE
--- NOTE | 2021-04-21 09:42 | Progress Note ---
Assessment and Plan Cultures: COVID-19 PCR: Positive outpatient. A/P: 51-year-old man past medical history morbid obesity, hypertension, CAD #Severe COVID-19 pneumonia: Patient presented with a week of symptoms, chest CT with diffuse groundglass opacities, admission O2 sats decreased on room air. Inflammatory markers elevated #Acute hypoxemic respiratory failure: Likely secondary to COVID-19 infection. Remains on BiPAP. #Morbid obesity: Associated with worse COVID-19 outcomes Recommendations: -Dexamethasone 6 mg IV/PO daily for 10 days -Remdesivir 200 mg IV q day x 1 followed by 100 mg IV q day x 4 days -Obtain q48-72h inflammatory markers - ferritin, Ddimer, CRP, LDH -Received Tocilizumab -Anticoagulation per hospital protocol -Proning as able Thank you for the consult, we will continue to follow. Abdiel Wilkerson MD [facility] O: [phone] F: [phone] Subjective Date of service: 04/21/21 Principal diagnosis: AHRF; ARDS; ANKUSH; COVID-19 infxn; Pneumonia; Morbid Obesity Interval history: Afebrile, normal white count. On BiPAP overnight Imaging personally viewed: Chest x-ray extensive bilateral pulmonary disease. Objective - Exam Narrative Exam: Physical exam deferred to reduce risk of transmission of COVID-19. Please refer to primary team's note. - Constitutional Vitals: Vital Signs Temp Pulse Resp BP Pulse Ox 98 F 56 L 19 144/82 97 04/21/21 08:38 04/21/21 06:00 04/21/21 06:00 04/21/21 06:00 04/21/21 06:00 Temperature -Last 24 Hours Temperature 98 F Temperature 99.0 F Temperature 98.8 F Temperature 98.1 F Temperature 97.0 F Temperature 97.6 F - Labs CBC & Chem 7: 04/20/21 11:08 04/20/21 11:08 Labs: Abnormal lab results 04/20/21 04/20/21 04/20/21 Range/Units 11:08 11:08 11:08 RDW (13.2-15.2) % [place] % (Auto) (0.0-7.3) % [place] # (Auto) (0.0-0.8) K/mm3 D-Dimer 1082.55 H (0-234) ng/mlDDU BUN 26 H (9-20) mg/dL Glucose 121 H (75-100) mg/dL POC Glucose (70-105) mg/dL Ferritin 1389.0 H (30.0-300.0) ng/mL AST 46 H (5-40) units/L Lactate Dehydrogenase 647 H (91-180) units/L C-Reactive Protein 5.50 H (0.00-1.30) mg/dL Albumin 3.5 L (3.9-5) g/dL Coronavirus (PCR) (Negative) 04/20/21 04/20/21 04/20/21 Range/Units 11:08 16:04 21:10 RDW 12.9 L (13.2-15.2) % [place] % (Auto) 14.0 H (0.0-7.3) % [place] # (Auto) 0.9 H (0.0-0.8) K/mm3 D-Dimer (0-234) ng/mlDDU BUN (9-20) mg/dL Glucose (75-100) mg/dL POC Glucose 159 H 149 H (70-105) mg/dL Ferritin (30.0-300.0) ng/mL AST (5-40) units/L Lactate Dehydrogenase (91-180) units/L C-Reactive Protein (0.00-1.30) mg/dL Albumin (3.9-5) g/dL Coronavirus (PCR) (Negative) 04/20/21 Range/Units Unknown RDW (13.2-15.2) % [place] % (Auto) (0.0-7.3) % [place] # (Auto) (0.0-0.8) K/mm3 D-Dimer (0-234) ng/mlDDU BUN (9-20) mg/dL Glucose (75-100) mg/dL POC Glucose (70-105) mg/dL Ferritin (30.0-300.0) ng/mL AST (5-40) units/L Lactate Dehydrogenase (91-180) units/L C-Reactive Protein (0.00-1.30) mg/dL Albumin (3.9-5) g/dL Coronavirus (PCR) Positive A (Negative)
[2021-04-21] MEDS: ZINC SULFATE 220 MG CAP PO SCH ×2 (10:17→21:30)
[2021-04-21] MEDS: ASCORBIC ACID 500 MG TAB PO SCH ×2 (10:17→21:30)
[2021-04-21] MEDS: FAMOTIDINE 20 MG/2 ML INJ IV SCH ×2 (10:47→22:17)
[2021-04-21] MEDS: dexAMETHasone 4 MG/ML VIAL IV SCH (10:47)
[2021-04-21 11:48] LABS: Basophils % (Auto) 0.2 % (0.0-1.8); Eosinophils % (Auto) 0.1 % (0.0-4.3); Hematocrit 41.8 % (35.5-45.6); Hemoglobin 13.5 gm/dl (11.8-15.2); Lymphocytes # (Auto) 1.5 K/mm3 (1.2-5.4); Lymphocytes % (Auto) 16.3 % (13.4-35.0); Mean Corpuscular HGB Conc 32 % (32-34); Mean Corpuscular Volume 89 fl (84-94); Monocytes # (Auto) 1.2 K/mm3 (0.0-0.8); Platelet Count 173 K/mm3 (140-440); Red Blood Count 4.72 M/mm3 (3.65-5.03); Red Cell Distribution Width 13.1 % (13.2-15.2)
[2021-04-21 12:31] LABS: Alanine Aminotransferase 54 units/L (7-56); Albumin 3.4 g/dL (3.9-5); BUN/Creatinine Ratio 34; Blood Urea Nitrogen 27 mg/dL (9-20); Calcium 8.9 mg/dL (8.4-10.2); Hemolysis Index 7
--- NOTE | 2021-04-21 19:16 | Progress Note ---
Assessment and Plan 51-year-old male with history of morbid obesity, hypertension, migraine, coronary osteoarthritis and GERD and headache was brought to the emergency room because of progressive shortness of breath. Patient has history of Covid and he was admitted last week to the hospital. He states he was sent home with oxygen however he is needed 4 L of oxygen and his shortness of breath has gotten worse when he walks his oxygen drops down to the mid 80s. He has frequent cough. Patient states he has some body aches he denies having nausea. Patient stated that he came into contact with an individual who had tested positive for COVID-19 viral infection, but he admits that he has been fully vaccinated against COVID-19 viral infection.Patient smoking, alcohol or drug history not known at this time. In the emergency room patient CT scan of the chest showed scattered groundglass opacities at the bilateral lung suggesting atypical infectious process. Patient awake, alert. Presently on BIPAP 09/04 Rate 30, FIO2 100% and O2 saturation running 97%. Patient says breathing little better than yesterday. Patient afebrile. No leukocytosis. Patients blood pressure 189/107, pulse 63, Respirations 30. Stable appearance of extensive bilateral pulmonary opacities. Patient ABGs ABG on 100% FIO2. ABG pH 7.480 (7.320-7.450) H 04/19/21 17:21 POC ABG pCO2 37.3 mmHg (32.0-48.0) 04/19/21 17:21 ABG pCO2 36.2 mm Hg 04/18/21 Unknown POC ABG pO2 108.6 mmHg (83-108) H 04/19/21 17: ABG pO2 134.6 mm Hg (80.0-90.0) H 04/18/21 Unknown POC ABG HCO3 27.2 04/19/21 17:21 ABG O2 Saturation 98.2 (0-100) 04/19/21 17:21 No further history available at this time. Patient is on Decadron, S/C Heparin, Famotidine, Albuterol/budesonide aerosol treatments. Finished course of Remdesivir I spent critical care time of 35 minutes, review the chart, obtain history, e xamine the patient, review chest , CT scan of chest , review lab results, talking to the nursing staff and respiratory therapy and work up plan of treatment in this critically ill patient. - Patient Problems (1) Acute respiratory failure due to COVID-19 Current Visit: Yes Status: Acute Plan to address problem: BIPAP /, rate 30, FIO2 100% Continue Decadron. Finished Remdesivir. S/C Heparin. Famotidine. Albuterol/budesonide aerosol treatments. (2) GERD (gastroesophageal reflux disease) Current Visit: Yes Status: Acute Plan to address problem: Patient is on Famotidine. (3) Hypertension Current Visit: Yes Status: Acute Plan to address problem: Management as per primary care. (4) Community acquired pneumonia Current Visit: No Status: Acute Qualifiers: Laterality: unspecified laterality Qualified Code(s): J18.9 - Pneumonia, unspecified organism Plan to address problem: Antibiotics as per infectious diseases. (5) Coronavirus infection Current Visit: Yes Status: Acute Plan to address problem: Patient is on decadron Finished Remdesivir. Management as per infectious diseases. Subjective Date of service: 04/21/21 Principal diagnosis: AHRF; ARDS; ANKUSH; COVID-19 infxn; Pneumonia; Morbid Obesity Interval history: 51-year-old male with history of morbid obesity, hypertension, migraine, coronary osteoarthritis and GERD and headache was brought to the emergency room because of progressive shortness of breath. Patient has history of Covid and he was admitted last week to the hospital. He states he was sent home with oxygen however he is needed 4 L of oxygen and his shortness of breath has gotten worse when he walks his oxygen drops down to the mid 80s. He has frequent cough. Patient states he has some body aches he denies having nausea. Patient stated that he came into contact with an individual who had tested positive for COVID-19 viral infection, but he admits that he has been fully vaccinated against COVID-19 viral infection.Patient smoking, alcohol or drug history not known at this time. In the emergency room patient CT scan of the chest showed scattered groundglass opacities at the bilateral lung suggesting atypical infectious process. Patient awake, alert. Presently on BIPAP /12 Rate 30, FIO2 100% and O2 satu ration running 97%. Patient says breathing little better than yesterday. Patient afebrile. No leukocytosis. Patients blood pressure 189/107, pulse 63, Respirations 30. Chest xray done 04/20/2021 reported Stable appearance of extensive bilateral pulmonary opacities. Patient ABGs ABG on 100% FIO2. ABG pH 7.480 (7.320-7.450) H 04/19/21 17:21 POC ABG pCO2 37.3 mmHg (32.0-48.0) 04/19/21 17: ABG pCO2 36.2 mm Hg 04/18/21 Unknown POC ABG pO2 108.6 mmHg (83-108) H 04/19/21 17: ABG pO2 134.6 mm Hg (80.0-90.0) H 04/18/21 Unknown POC ABG HCO3 27.2 04/19/21 17: ABG O2 Saturation 98.2 (0-100) 04/19/21 17: No further history available at this time. Patient is on Decadron, S/C Heparin, Famotidine, Albuterol/budesonide aerosol treatments. Finished course of Remdesivir. Objective Vital Signs - 12hr 04/21/21 04/21/21 04/21/21 07:30 08:00 08:30 Temperature Pulse Rate 59 L 64 56 L Pulse Rate [ From Monitor] Pulse Rate [ Posterior] Respiratory 11 L 14 33 H Rate Respiratory Rate [Posterior ] Blood Pressure 150/79 141/94 137/84 O2 Sat by Pulse 96 98 96 Oximetry 04/21/21 04/21/21 04/21/21 08:38 09:00 09:01 Temperature 98 F Pulse Rate Pulse Rate [ 59 L From Monitor] Pulse Rate [ Posterior] Respiratory 22 29 H Rate Respiratory Rate [Posterior ] Blood Pressure 151/129 O2 Sat by Pulse 95 98 Oximetry 04/21/21 04/21/21 04/21/21 09:30 10:00 10:18 Temperature Pulse Rate 56 L 70 73 Pulse Rate [ From Monitor] Pulse Rate [ 80 Posterior] Respiratory 28 H 33 H 30 H Rate Respiratory 38 H Rate [Posterior ] Blood Pressure 139/77 157/99 O2 Sat by Pulse 97 99 100 Oximetry 04/21/21 04/21/21 04/21/21 10:31 11:00 11:30 Temperature Pulse Rate 73 61 62 Pulse Rate [ From Monitor] Pulse Rate [ Posterior] Respiratory 27 H 27 H 26 H Rate Respiratory Rate [Posterior ] Blood Pressure 155/97 162/84 149/76 O2 Sat by Pulse 99 98 95 Oximetry 04/21/21 04/21/21 04/21/21 12:00 12:01 12:30 Temperature 98.0 F Pulse Rate 59 L 57 L Pulse Rate [ From Monitor] Pulse Rate [ Posterior] Respiratory 21 30 H Rate Respiratory Rate [Posterior ] Blood Pressure 137/77 135/76 O2 Sat by Pulse 96 99 Oximetry 04/21/21 04/21/21 04/21/21 13:00 13:30 14:00 Temperature Pulse Rate 61 58 L 59 L Pulse Rate [ From Monitor] Pulse Rate [ Posterior] Respiratory 28 H 11 L 16 Rate Respiratory Rate [Posterior ] Blood Pressure 153/84 129/81 152/83 O2 Sat by Pulse 98 97 99 Oximetry 04/21/21 04/21/21 15:45 16:00 Temperature 97.9 F Pulse Rate 60 Pulse Rate [ From Monitor] Pulse Rate [ Posterior] Respiratory 42 H Rate Respiratory Rate [Posterior ] Blood Pressure O2 Sat by Pulse 98 Oximetry Constitutional: alert, appears uncomfortable, other (middle aged morbidly obese male with mildly increased respiratory effort at rest on BIPAP.) Eyes: non-icteric ENT: oropharynx moist, other (BIPAP FFM) Neck: supple, no lymphadenopathy, no JVD, other (large circumference) Effort: mildly labored Ascultation: Bilateral: diminished breath sounds, rhonchi Percussion: Bilateral: not dull Cardiovascular: regular rate and rhythm Gastrointestinal: normoactive bowel sounds, soft, non-tender, non-distended (protuberant) Integumentary: normal Extremities: no cyanosis, pink and warm, pulses normal, no ischemia or petechiae, edema Neurologic: normal mental status, non-focal exam, pupils equal and round, CN II- XII normal Psychiatric: mood appropriate, affect normal CBC and BMP: 04/22/21 04:49 04/22/21 04:49 ABG, PT/INR, D-dimer: ABG ABG pH 7.480 (7.320-7.450) H 04/19/21 17:21 POC ABG pCO2 37.3 mmHg (32.0-48.0) 04/19/21 17:21 ABG pCO2 36.2 mm Hg 04/18/21 Unknown POC ABG pO2 108.6 mmHg (83-108) H 04/19/21 17:21 ABG pO2 134.6 mm Hg (80.0-90.0) H 04/18/21 Unknown POC ABG HCO3 27.2 04/19/21 17:21 ABG O2 Saturation 98.2 (0-100) 04/19/21 17:21 PT/INR, D-dimer D-Dimer 1082.55 ng/mlDDU (0-234) H 04/20/21 11:08 Abnormal lab findings: Abnormal Labs 04/16/21 04/16/21 04/17/21 21:18 21:18 16:40 WBC 3.5 L RDW Plt Count 85 L Lymph % (Auto) Wilkinson % (Auto) Lymph # (Auto) 0.7 L Wilkinson # (Auto) Seg Neutrophils % 74.2 H D-Dimer ABG pH POC ABG pO2 ABG pO2 ABG HCO3 ABG O2 Saturation ABG Base Excess ABG Hemoglobin ABG Oxyhemoglobin ABG Sodium ABG Chloride ABG Glucose Oxyhemoglobin Carboxyhemoglobin Sodium 132 L Chloride 93.8 L BUN Creatinine 0.7 L Glucose 125 H POC Glucose Calcium 8.2 L Ferritin 1918.0 H AST 83 H ALT 63 H Lactate Dehydrogenase C-Reactive Protein Albumin 3.7 L Arterial Blood Glucose Arterial Blood Ionized Calcium Coronavirus (PCR) 04/17/21 04/17/21 04/17/21 16:40 16:40 16:40 WBC RDW Plt Count Lymph % (Auto) Wilkinson % (Auto) Lymph # (Auto) Wilkinson # (Auto) Seg Neutrophils % D-Dimer 306.45 H ABG pH POC ABG pO2 ABG pO2 ABG HCO3 ABG O2 Saturation ABG Base Excess ABG Hemoglobin ABG Oxyhemoglobin ABG Sodium ABG Chloride ABG Glucose Oxyhemoglobin Carboxyhemoglobin Sodium 135 L Chloride 96.2 L BUN Creatinine Glucose 155 H POC Glucose Calcium Ferritin AST 72 H ALT 68 H Lactate Dehydrogenase 505 H C-Reactive Protein 16.30 H Albumin 3.5 L Arterial Blood Glucose Arterial Blood Ionized Calcium Coronavirus (PCR) 04/17/21 04/17/21 04/18/21 18:45 Unknown 03:53 WBC RDW 13.1 L Plt Count 115 L Lymph % (Auto) 13.0 L Wilkinson % (Auto) 8.7 H Lymph # (Auto) 1.0 L Wilkinson # (Auto) Seg Neutrophils % 78.2 H D-Dimer ABG pH POC ABG pO2 ABG pO2 56.8 L ABG HCO3 27.4 H ABG O2 Saturation 90.8 L ABG Base Excess 3.1 H ABG Hemoglobin 11.3 L 13.7 L ABG Oxyhemoglobin ABG Sodium ABG Chloride ABG Glucose Oxyhemoglobin 89.4 L Carboxyhemoglobin Sodium Chloride BUN Creatinine Glucose POC Glucose Calcium Ferritin AST ALT Lactate Dehydrogenase C-Reactive Protein Albumin Arterial Blood Glucose Arterial Blood Ionized Calcium Coronavirus (PCR) 04/18/21 04/18/21 04/18/21 03:53 08:02 Unknown WBC RDW Plt Count Lymph % (Auto) Wilkinson % (Auto) Lymph # (Auto) Wilkinson # (Auto) Seg Neutrophils % D-Dimer ABG pH POC ABG pO2 ABG pO2 64.3 L 134.6 H ABG HCO3 26.9 H ABG O2 Saturation 93.6 L ABG Base Excess -3.3 L ABG Hemoglobin 11.9 L ABG Oxyhemoglobin ABG Sodium ABG Chloride ABG Glucose Oxyhemoglobin 92.3 L Carboxyhemoglobin Sodium 135 L Chloride 95.9 L BUN Creatinine 0.7 L Glucose 149 H POC Glucose Calcium Ferritin AST 62 H ALT 59 H Lactate Dehydrogenase C-Reactive Protein Albumin 3.3 L Arterial Blood Glucose Arterial Blood Ionized Calcium Coronavirus (PCR) 04/19/21 04/19/21 04/19/21 01:37 07:28 08:44 WBC RDW Plt Count Lymph % (Auto) Wilkinson % (Auto) Lymph # (Auto) Wilkinson # (Auto) Seg Neutrophils % D-Dimer ABG pH POC ABG pO2 56.3 L ABG pO2 ABG HCO3 ABG O2 Saturation ABG Base Excess ABG Hemoglobin ABG Oxyhemoglobin 88.3 L ABG Sodium 132.8 L ABG Chloride 96.0 L ABG Glucose 145 H Oxyhemoglobin Carboxyhemoglobin 0.4 L Sodium Chloride 97.4 L BUN Creatinine 0.7 L Glucose 130 H POC Glucose 135 H Calcium Ferritin AST 53 H ALT Lactate Dehydrogenase C-Reactive Protein Albumin 3.6 L Arterial Blood Glucose 145 H Arterial Blood Ionized Calcium 4.5 L Coronavirus (PCR) 04/19/21 04/19/21 04/19/21 08:44 11:30 16:53 WBC RDW 12.8 L Plt Count Lymph % (Auto) Wilkinson % (Auto) Lymph # (Auto) Wilkinson # (Auto) Seg Neutrophils % D-Dimer ABG pH POC ABG pO2 ABG pO2 ABG HCO3 ABG O2 Saturation ABG Base Excess ABG Hemoglobin ABG Oxyhemoglobin ABG Sodium ABG Chloride ABG Glucose Oxyhemoglobin Carboxyhemoglobin Sodium Chloride BUN Creatinine Glucose POC Glucose 129 H 146 H Calcium Ferritin AST ALT Lactate Dehydrogenase C-Reactive Protein Albumin Arterial Blood Glucose Arterial Blood Ionized Calcium Coronavirus (PCR) 04/19/21 04/19/21 04/20/21 17:21 21:07 07:18 WBC RDW Plt Count Lymph % (Auto) Wilkinson % (Auto) Lymph # (Auto) Wilkinson # (Auto) Seg Neutrophils % D-Dimer ABG pH 7.480 H POC ABG pO2 108.6 H ABG pO2 ABG HCO3 ABG O2 Saturation ABG Base Excess ABG Hemoglobin ABG Oxyhemoglobin ABG Sodium 134.1 L ABG Chloride 97.0 L ABG Glucose 167 H Oxyhemoglobin Carboxyhemoglobin 0.4 L Sodium Chloride BUN Creatinine Glucose POC Glucose 152 H 128 H Calcium Ferritin AST ALT Lactate Dehydrogenase C-Reactive Protein Albumin Arterial Blood Glucose 167 H Arterial Blood Ionized Calcium Coronavirus (PCR) 04/20/21 04/20/21 04/20/21 11:08 11:08 11:08 WBC RDW Plt Count Lymph % (Auto) Wilkinson % (Auto) Lymph # (Auto) Wilkinson # (Auto) Seg Neutrophils % D-Dimer 1082.55 H ABG pH POC ABG pO2 ABG pO2 ABG HCO3 ABG O2 Saturation ABG Base Excess ABG Hemoglobin ABG Oxyhemoglobin ABG Sodium ABG Chloride ABG Glucose Oxyhemoglobin Carboxyhemoglobin Sodium Chloride BUN 26 H Creatinine Glucose 121 H POC Glucose Calcium Ferritin 1389.0 H AST 46 H ALT Lactate Dehydrogenase 647 H C-Reactive Protein 5.50 H Albumin 3.5 L Arterial Blood Glucose Arterial Blood Ionized Calcium Coronavirus (PCR) 04/20/21 04/20/21 04/20/21 11:08 16:04 21:10 WBC RDW 12.9 L Plt Count Lymph % (Auto) Wilkinson % (Auto) 14.0 H Lymph # (Auto) Wilkinson # (Auto) 0.9 H Seg Neutrophils % D-Dimer ABG pH POC ABG pO2 ABG pO2 ABG HCO3 ABG O2 Saturation ABG Base Excess ABG Hemoglobin ABG Oxyhemoglobin ABG Sodium ABG Chloride ABG Glucose Oxyhemoglobin Carboxyhemoglobin Sodium Chloride BUN Creatinine Glucose POC Glucose 159 H 149 H Calcium Ferritin AST ALT Lactate Dehydrogenase C-Reactive Protein Albumin Arterial Blood Glucose Arterial Blood Ionized Calcium Coronavirus (PCR) 04/20/21 04/21/21 04/21/21 Unknown 11:34 11:34 WBC RDW 13.1 L Plt Count Lymph % (Auto) Wilkinson % (Auto) 13.0 H Lymph # (Auto) Wilkinson # (Auto) 1.2 H Seg Neutrophils % 70.4 H D-Dimer ABG pH POC ABG pO2 ABG pO2 ABG HCO3 ABG O2 Saturation ABG Base Excess ABG Hemoglobin ABG Oxyhemoglobin ABG Sodium ABG Chloride ABG Glucose Oxyhemoglobin Carboxyhemoglobin Sodium Chloride BUN 27 H Creatinine Glucose 107 H POC Glucose Calcium Ferritin AST 46 H ALT Lactate Dehydrogenase C-Reactive Protein Albumin 3.4 L Arterial Blood Glucose Arterial Blood Ionized Calcium Coronavirus (PCR) Positive A 04/21/21 17:00 WBC RDW Plt Count Lymph % (Auto) Wilkinson % (Auto) Lymph # (Auto) Wilkinson # (Auto) Seg Neutrophils % D-Dimer ABG pH POC ABG pO2 ABG pO2 ABG HCO3 ABG O2 Saturation ABG Base Excess ABG Hemoglobin ABG Oxyhemoglobin ABG Sodium ABG Chloride ABG Glucose Oxyhemoglobin Carboxyhemoglobin Sodium Chloride BUN Creatinine Glucose POC Glucose 138 H Calcium Ferritin AST ALT Lactate Dehydrogenase C-Reactive Protein Albumin Arterial Blood Glucose Arterial Blood Ionized Calcium Coronavirus (PCR) Chest x-ray: report reviewed, image reviewed Additional Studies: CHEST 1 VIEW 04/20/2021 INDICATION / CLINICAL INFORMATION: covid 19 pna. COMPARISON: 04/19/2021 FINDINGS: SUPPORT DEVICES: None. HEART / MEDIASTINUM: No significant abnormality. LUNGS / PLEURA: Extensive bilateral pulmonary opacities with areas of consolidation bilaterally. No pneumothorax. ADDITIONAL FINDINGS: No significant additional findings. IMPRESSION: 1. Stable appearance of extensive bilateral pulmonary opacities. Allied health notes reviewed: nursing
[2021-04-21] MEDS: ALPRAZolam 0.25 MG TAB PO SCH (21:30)
[2021-04-21] MEDS: SODIUM CHLORIDE 0.9% 50 ML IVPB IV SCH (22:17)
[2021-04-21] MEDS: REMDESIVIR 100 MG in SODIUM CHLORIDE 0.9% 250ML 250 ML IV SCH (22:17)
[2021-04-21] MEDS: LORazepam 2 MG/ML VIAL IV PRN (22:18)
[2021-04-22] MEDS: BENZONATATE 100 MG CAP PO SCH ×3 (05:26→21:11)
[2021-04-22 05:30] LABS: Basophils % (Auto) 0.1 % (0.0-1.8); Eosinophils % (Auto) 0.4 % (0.0-4.3); Hematocrit 42.7 % (35.5-45.6); Hemoglobin 13.7 gm/dl (11.8-15.2); Lymphocytes # (Auto) 1.2 K/mm3 (1.2-5.4); Lymphocytes % (Auto) 12.2 % (13.4-35.0); Mean Corpuscular HGB Conc 32 % (32-34); Mean Corpuscular Volume 90 fl (84-94); Monocytes # (Auto) 1.1 K/mm3 (0.0-0.8); Monocytes % (Auto) 10.7 % (0.0-7.3); Platelet Count 179 K/mm3 (140-440); Red Blood Count 4.74 M/mm3 (3.65-5.03); Red Cell Distribution Width 13.2 % (13.2-15.2)
--- NOTE | 2021-04-22 05:38 | XRay Report ---
CHEST 1 VIEW INDICATION / CLINICAL INFORMATION: covid 19 pna. COMPARISON: 04/20/2021 FINDINGS: SUPPORT DEVICES: None. HEART / MEDIASTINUM: No significant abnormality. LUNGS / PLEURA: Severe diffuse bilateral pulmonary opacities persist without significant interval jean pierre nge, given slight differences in technique. No pneumothorax. ADDITIONAL FINDINGS: No significant additional findings. IMPRESSION: 1. Stable appearance of severe bilateral pulmonary opacities. Signer Name: Makeda Marte MD Signed: 04/22/2021 5:33 AM Workstation Name: [id number]
[2021-04-22 05:40] LABS: Alanine Aminotransferase 53 units/L (7-56); Albumin 3.1 g/dL (3.9-5); Blood Urea Nitrogen 28 mg/dL (9-20); Calcium 8.4 mg/dL (8.4-10.2); Hemolysis Index 82
[2021-04-22 05:47] LABS: BUN/Creatinine Ratio 47
[2021-04-22] MEDS: HEPARIN 5,000 UNIT/1 ML VIAL SUB-Q SCH ×3 (06:04→21:11)
[2021-04-22] MEDS: hydrALAZINE 20 MG/1 ML INJ IV PRN ×2 (06:30→19:16)
[2021-04-22] MEDS: BUDESONIDE 0.5 MG/2 ML NEBU IH SCH ×3 (09:24→22:27)
[2021-04-22] MEDS: dexAMETHasone 4 MG/ML VIAL IV SCH (10:45)
[2021-04-22] MEDS: ZINC SULFATE 220 MG CAP PO SCH ×2 (10:45→21:12)
[2021-04-22] MEDS: ASCORBIC ACID 500 MG TAB PO SCH ×2 (10:45→21:11)
[2021-04-22] MEDS: FAMOTIDINE 20 MG/2 ML INJ IV SCH ×2 (11:45→21:11)
--- NOTE | 2021-04-22 12:37 | Progress Note ---
Assessment and Plan Assessment and plan: 51-year-old male with history of morbid obesity, hypertension, migraine, coronary osteoarthritis and GERD and headache was brought to the emergency room because of progressive shortness of breath. Patient has history of Covid and he was admitted last week to the hospital. He states he was sent home with oxygen however he is needed 4 L of oxygen and his shortness of breath has gotten worse when he walks his oxygen drops down to the mid 80s. Patient stated that he came into contact with an individual who had tested positive for COVID-19 viral infection, but he admits that he has been fully vaccinated against COVID-19 viral infection. In the emergency room patient CT scan of the chest showed sc attered groundglass opacities at the bilateral lung suggesting atypical infectious process. Acute hypoxic respiratory failure Severe COVID-19 pneumonia Morbid obesity 04/19/21:clinically the patient appears to be in no distress despite being on 100% fio2 bipap mask. However, ABG data looks worse, Po2: 56.3. CXR demonstrates worsened pulmonary interstitial infiltrates. Discussed case with Dr. Lagunas. Low threshold for intubation should he worsen. Patient was advised on my encounter to maintain bipap mask and not remove it. Continue therapy with decadron, remdesivir. Dc abx due to low procal. Actemra ordered. Will follow ID recs. Consult PT to continue mobilizing patient. Encouraged patient to do so in presence of care staff 04/20/2021: Remains bipap dependent. No acute changes in respiratory status. Unfortunately he is low threshold for intubation. Will follow pulmonology/ID recommendations. 04/21/2021: Remains bipap dependent. Currenlty 100%. No changes overnight. Will follow pulm/ID recs. 04/22/2021. Patient currently requiring high flow nasal cannula with 40 L O2 FiO2 of 100%. Continue dexamethasone 6 mg IV for total of 10 days with remdesivir IV x5 days. Continue to follow inflammatory markers of ferritin, D-dimer, CRP and LDH. Patient is s/p Tocilizumab. Prone positioning as able. History Interval history: No new issues overnight Hospitalist Physical - Constitutional Vitals: Temp Pulse Resp BP Pulse Ox 98.6 F 58 L 35 H 127/59 98 04/22/21 04:00 04/22/21 11:31 04/22/21 11:31 04/22/21 11:31 04/22/21 11:31 General appearance: Present: no acute distress, obese - EENT Eyes: Present: PERRL, EOM intact ENT: hearing intact, clear oral mucosa, dentition normal - Neck Neck: Present: supple, normal ROM - Respiratory Respiratory effort: normal Respiratory: bilateral: CTA - Cardiovascular Rhythm: regular Heart Sounds: Present: S1 & S2. Absent: gallop, rub - Extremities Extremities: no ischemia, No edema, Full ROM - Abdominal General gastrointestinal: soft, non-tender, non-distended, normal bowel sounds - Integumentary Integumentary: Present: clear, warm, dry - Neurologic Neurologic: CNII-XII intact, moves all extremities Results - Labs CBC & Chem 7: 04/22/21 04:49 04/22/21 04:49 Labs: Laboratory Last Values WBC 10.0 K/mm3 (4.5-11.0) 04/22/21 04:49 RBC 4.74 M/mm3 (3.65-5.03) 04/22/21 04:49 Hgb 13.7 gm/dl (11.8-15.2) 04/22/21 04:49 Hct 42.7 % (35.5-45.6) 04/22/21 04:49 MCV 90 fl (84-94) 04/22/21 04:49 MCH 29 pg (28-32) 04/22/21 04:49 MCHC 32 % (32-34) 04/22/21 04:49 RDW 13.2 % (13.2-15.2) 04/22/21 04:49 Plt Count 179 K/mm3 (140-440) 04/22/21 04:49 Lymph % (Auto) 12.2 % (13.4-35.0) L 04/22/21 04:49 Lane % (Auto) 10.7 % (0.0-7.3) H 04/22/21 04:49 Eos % (Auto) 0.4 % (0.0-4.3) 04/22/21 04:49 Baso % (Auto) 0.1 % (0.0-1.8) 04/22/21 04:49 Lymph # (Auto) 1.2 K/mm3 (1.2-5.4) 04/22/21 04:49 Lane # (Auto) 1.1 K/mm3 (0.0-0.8) H 04/22/21 04:49 Eos # (Auto) 0.0 K/mm3 (0.0-0.4) 04/22/21 04:49 Baso # (Auto) 0.0 K/mm3 (0.0-0.1) 04/22/21 04:49 Seg Neutrophils % 76.6 % (40.0-70.0) H 04/22/21 04:49 Seg Neutrophils # 7.7 K/mm3 (1.8-7.7) 04/22/21 04:49 D-Dimer 1880.44 ng/mlDDU (0-234) H 04/22/21 04:49 ABG pH 7.480 (7.320-7.450) H 04/19/21 17:21 POC ABG pCO2 37.3 mmHg (32.0-48.0) 04/19/21 17: ABG pCO2 36.2 mm Hg 04/18/21 Unknown POC ABG pO2 108.6 mmHg (83-108) H 04/19/21 17:21 ABG pO2 134.6 mm Hg (80.0-90.0) H 04/18/21 Unknown POC ABG HCO3 27.2 04/19/21 17: ABG HCO3 21.0 mmol/L (20.0-26.0) 04/18/21 Unknown ABG O2 Saturation 98.2 (0-100) 04/19/21 17: ABG O2 Content 22.0 (0.0-44) 04/18/21 Unknown POC ABG Base Excess 3.7 04/19/21 17: ABG Base Excess -3.3 mmol/L (-2.0-3.0) L 04/18/21 Unknown ABG Hemoglobin 14.0 (12.0-17.5) 04/19/21 17: ABG Oxyhemoglobin 97.5 (94-98) 04/19/21 17: ABG Carboxyhemoglobin 0.7 % (0.0-5.0) 04/18/21 Unknown ABG Methemoglobin 0.3 (0.0-1.5) 04/19/21 17:21 ABG Sodium 134.1 mmol/L (136.0-145.0) L 04/19/21 17:21 ABG Potassium 4.4 mmol/L (3.40-4.50) 04/19/21 17:21 ABG Chloride 97.0 mmol/L (98-107) L 04/19/21 17:21 ABG Glucose 167 mg/dL (65-95) H 04/19/21 17:21 Oxyhemoglobin 97.2 % (95.0-99.0) 04/18/21 Unknown Carboxyhemoglobin 0.4 (0.5-1.5) L 04/19/21 17:21 FiO2 100 % 04/18/21 Unknown FiO2 % 100 04/19/21 17:21 Sodium 143 mmol/L (137-145) 04/22/21 04:49 Potassium 4.8 mmol/L (3.6-5.0) 04/22/21 04:49 Chloride 108.6 mmol/L (98-107) H 04/22/21 04:49 Carbon Dioxide 21 mmol/L (22-30) L D 04/22/21 04:49 Anion Gap 18 mmol/L 04/22/21 04:49 BUN 28 mg/dL (9-20) H 04/22/21 04:49 Creatinine 0.6 mg/dL (0.8-1.3) L 04/22/21 04:49 Estimated GFR > 60 ml/min 04/22/21 04:49 BUN/Creatinine Ratio 47 % 04/22/21 04:49 Glucose 115 mg/dL (75-100) H 04/22/21 04:49 POC Glucose 105 mg/dL (70-105) 04/22/21 11:39 Lactic Acid 1.10 mmol/L (0.7-2.0) 04/16/21 21:18 Calcium 8.4 mg/dL (8.4-10.2) 04/22/21 04:49 Ferritin 1185.0 ng/mL (30.0-300.0) H 04/22/21 04:49 Total Bilirubin 0.80 mg/dL (0.1-1.2) 04/22/21 04:49 AST 50 units/L (5-40) H 04/22/21 04:49 ALT 53 units/L (7-56) 04/22/21 04:49 Alkaline Phosphatase 70 units/L (35-129) 04/22/21 04:49 Lactate Dehydrogenase 759 units/L (91-180) H 04/22/21 04:49 C-Reactive Protein 1.60 mg/dL (0.00-1.30) H 04/22/21 04:49 NT-Pro-B Natriuret Pep 79.47 pg/mL (0-900) 04/17/21 16:40 Total Protein 6.4 g/dL (6.3-8.2) 04/22/21 04:49 Albumin 3.1 g/dL (3.9-5) L 04/22/21 04:49 Albumin/Globulin Ratio 0.9 % 04/22/21 04:49 Procalcitonin 0.15 ng/mL (<0.15) 04/17/21 16:40 Arterial Blood Glucose 167 mg/dL (65-95) H 04/19/21 17:21 Arterial Blood Ionized Calcium 4.6 mg/dL (4.6-5.3) 04/19/21 17:21 Coronavirus (PCR) Positive (Negative) A 04/20/21 Unknown Martin/IV: Voiding Method Urinal Active Medications - Current Medications Current Medications: Generic Name Dose Route Start Last Admin Trade Name Freq PRN Reason Stop Dose Admin Acetaminophen 650 mg 04/17/21 01:45 Acetaminophen 325 Mg Tab PO Q4H PRN Pain MILD(1-3)/Fever >100.5/[place]ER Albuterol 2.5 mg 04/17/21 01:45 Albuterol 2.5 Mg/3 Ml Nebu IH Q4HRT PRN Shortness Of Breath Alprazolam 0.25 mg 04/17/21 22:00 04/21/21 21:30 Alprazolam 0.25 Mg Tab PO Not Given QHS DEIRDRE Ascorbic Acid 1,000 mg 04/17/21 02:00 04/22/21 10:45 Ascorbic Acid 500 Mg Tab PO 1,000 mg Q12HR DEIRDRE Administration Benzonatate 100 mg 04/17/21 06:00 04/22/21 05:26 Benzonatate 100 Mg Cap PO Not Given Q8HR DEIRDRE Budesonide 0.5 mg 04/19/21 20:00 04/22/21 09:24 Budesonide 0.5 Mg/2 Ml Nebu IH Not Given Q12HRT [facility] Cyclobenzaprine HCl 10 mg 04/17/21 01:49 04/18/21 09:28 Cyclobenzaprine 10 Mg Tab PO 10 mg TID PRN Administration Spasms Dexamethasone 6 mg 04/17/21 10:00 04/22/21 10:45 Dexamethasone 4 Mg/Ml Vial IV 04/25/21 10:01 6 mg DAILY DEIRDRE Administration Famotidine 20 mg 04/21/21 10:00 04/22/21 11:45 Famotidine 20 Mg/2 Ml Inj IV 20 mg BID DEIRDRE Administration Gabapentin 300 mg 04/17/21 08:00 04/21/21 21:30 Gabapentin 300 Mg Cap PO Not Given TID [facility] Heparin Sodium (Porcine) 5,000 unit 04/17/21 06:00 04/22/21 06:04 Heparin 5,000 Unit/1 Ml Vial SUB-Q 5,000 unit Q8HR DEIRDRE Administration Hydralazine HCl 10 mg 04/17/21 02:00 04/22/21 06:30 Hydralazine 20 Mg/1 Ml Inj IV 10 mg Q6H PRN Administration Blood Pressure Hydromorphone HCl 0.5 mg 04/17/21 01:45 04/18/21 09:27 Hydromorphone 1 Mg/1 Ml Inj IV 0.5 mg Q3H PRN Administration Pain , Severe (7-10) Lorazepam 0.5 mg 04/21/21 08:44 04/21/21 22:18 Lorazepam 2 Mg/Ml Vial IV 0.5 mg Q4H PRN Administration Anxiety Morphine Sulfate 2 mg 04/17/21 01:45 04/18/21 16:38 Morphine 2 Mg/1 Ml Inj IV 2 mg Q4H PRN Administration Pain, Moderate (4-6) Ondansetron HCl 4 mg 04/17/21 01:45 04/18/21 07:48 Ondansetron 4 Mg/2 Ml Inj IV 4 mg Q8H PRN Administration Nausea And Vomiting Sodium Chloride 10 ml 04/17/21 10:00 04/22/21 10:45 Sodium Chloride 0.9% 10 Ml Flush Syringe IV 10 ml BID DEIRDRE Administration Sodium Chloride 10 ml 04/17/21 01:45 Sodium Chloride 0.9% 10 Ml Flush Syringe IV PRN PRN LINE FLUSH Zinc Sulfate 220 mg 04/17/21 22:00 04/22/21 10:45 Zinc Sulfate 220 Mg Cap PO 220 mg BID DEIRDRE Administration
--- NOTE | 2021-04-22 12:45 | Progress Note ---
Assessment and Plan 51-year-old male with history of morbid obesity, hypertension, migraine, coronary osteoarthritis and GERD and headache was brought to the emergency room because of progressive shortness of breath. Patient has history of Covid and he was admitted last week to the hospital. He states he was sent home with oxygen however he is needed 4 L of oxygen and his shortness of breath has gotten worse when he walks his oxygen drops down to the mid 80s. He has frequent cough. Patient states he has some body aches he denies having nausea. Patient stated that he came into contact with an individual who had tested positive for COVID-19 viral infection, but he admits that he has been fully vaccinated against COVID-19 viral infection.Patient smoking, alcohol or drug history not known at this time. In the emergency room patient CT scan of the chest showed scattered groundglass opacities at the bilateral lung suggesting atypical infectious process. Patient awake. Presently on BIPAP 22/12 Rate 30, FIO2 100% and O2 saturation running 94%. Patient says breathing little better than yesterday. Patient afebrile. No leukocytosis. Patients blood pressure 152/87, pulse 59, Respirations 30. Patient awake and alert. Presently on Vapotherm FIO2 100% and O2 saturation running 90%. Bipap 22/12, rate 30, FI02 74%. Standby in the room. Patient says breathing better than yesterday. Patient afebrile. No leukocytosis. Patients blood pressure 134/85, pulse 82, Respirations 14. Chest xray done 04/20/2021 reported Stable appearance of extensive bilateral pulmonary opacities. Chest xray done 04/22/2021 reported Stable appearance of severe bilateral pulmonary opacities. Patient ABGs ABG on 100% FIO2. ABG pH 7.480 (7.320-7.450) H 04/19/21 17:21 POC ABG pCO2 37.3 mmHg (32.0-48.0) 04/19/21 17: ABG pCO2 36.2 mm Hg 04/18/21 Unknown POC ABG pO2 108.6 mmHg (83-108) H 04/19/21 17:21 ABG pO2 134.6 mm Hg (80.0-90.0) H 04/18/21 Unknown POC ABG HCO3 27.2 04/19/21 17: ABG O2 Saturation 98.2 (0-100) 04/19/21 17:21 No further history available at this time. Patient is on Decadron, S/C Heparin, Famotidine, Albuterol/budesonide aerosol treatments. Finished course of Remdesivir. I spent critical care time of 35 minutes, review the chart, obtain history, examine the patient, review chest , CT scan of chest , review lab results, talking to the nursing staff and respiratory therapy and work up plan of treatment in this critically ill patient. - Patient Problems (1) Acute respiratory failure due to COVID-19 Current Visit: Yes Status: Acute Plan to address problem: Vapotherm FIO2 100%, BIPAP 28/12, rate 30, FIO2 70% standby Continue Decadron. Finished course of Remdesivir. S/C Heparin. Famotidine. Albuterol/budesonide aerosol treatments. (2) GERD (gastroesophageal reflux disease) Current Visit: Yes Status: Acute Plan to address problem: Patient is on Famotidine. (3) Hypertension Current Visit: Yes Status: Acute Plan to address problem: Management as per primary care. (4) Community acquired pneumonia Current Visit: No Status: Acute Qualifiers: Laterality: unspecified laterality Qualified Code(s): J18.9 - Pneumonia, unspecified organism Plan to address problem: Antibiotics as per infectious diseases. (5) Coronavirus infection Current Visit: Yes Status: Acute Plan to address problem: Patient is on decadron, finished course of Remdesivir. Management as per infectious diseases. Subjective Date of service: 04/22/21 Principal diagnosis: AHRF; ARDS; ANKUSH; COVID-19 infxn; Pneumonia; Morbid Obesity Interval history: 51-year-old male with history of morbid obesity, hypertension, migraine, c oronary osteoarthritis and GERD and headache was brought to the emergency room because of progressive shortness of breath. Patient has history of Covid and he was admitted last week to the hospital. He states he was sent home with oxygen however he is needed 4 L of oxygen and his shortness of breath has gotten worse when he walks his oxygen drops down to the mid 80s. He has frequent cough. Lisa ent states he has some body aches he denies having nausea. Patient stated that he came into contact with an individual who had tested positive for COVID-19 viral infection, but he admits that he has been fully vaccinated against COVID-19 viral infection.Patient smoking, alcohol or drug history not known at this time. In the emergency room patient CT scan of the chest showed scattered groundglass opacities at the bilateral lung suggesting atypical infectious process. Patient awake and alert. Presently on Vapotherm FIO2 100% and O2 saturation running 90%. Bipap 09/04, rate 30, FI02 74%. Standby in the room. Patient says breathing better than yesterday. Patient afebrile. No leukocytosis. Patients blood pressure 134/85, pulse 82, Respirations 14. Chest xray done 04/20/2021 reported Stable appearance of extensive bilateral pulmonary opacities. Chest xray done 04/22/2021 reported Stable appearance of severe bilateral pulmonary opacities. Patient ABGs ABG on 100% FIO2. ABG pH 7.480 (7.320-7.450) H 04/19/21 17:21 POC ABG pCO2 37.3 mmHg (32.0-48.0) 04/19/21 17: ABG pCO2 36.2 mm Hg 04/18/21 Unknown POC ABG pO2 108.6 mmHg (83-108) H 04/19/21 17: ABG pO2 134.6 mm Hg (80.0-90.0) H 04/18/21 Unknown POC ABG HCO3 27.2 04/19/21 17: ABG O2 Saturation 98.2 (0-100) 04/19/21 17:21 No further history available at this time. Patient is on Decadron, S/C Heparin, Famotidine, Albuterol/budesonide aerosol treatments. Finished course of Remdesivir. Objective Vital Signs - 12hr 04/22/21 04/22/21 04/22/21 01:00 01:30 02:00 Temperature Pulse Rate 51 L 52 L 92 H Respiratory 8 L 20 41 H Rate Blood Pressure 162/94 168/92 178/67 O2 Sat by Pulse 97 96 94 Oximetry 04/22/21 04/22/21 04/22/21 02:30 03:00 03:31 Temperature Pulse Rate 54 L 51 L 62 Respiratory 11 L 8 L 13 Rate Blood Pressure 168/98 176/97 176/97 O2 Sat by Pulse 94 92 85 Oximetry 04/22/21 04/22/21 04/22/21 04:00 04:31 05:01 Temperature 98.6 F Pulse Rate 51 L 76 Respiratory 33 H 23 Rate Blood Pressure 179/77 179/77 178/67 O2 Sat by Pulse 98 94 94 Oximetry 04/22/21 04/22/21 04/22/21 05:31 06:00 06:31 Temperature Pulse Rate 68 52 L 68 Respiratory 27 H 31 H 38 H Rate Blood Pressure 153/95 174/82 174/82 O2 Sat by Pulse 94 97 99 Oximetry 04/22/21 04/22/21 04/22/21 07:00 07:30 08:00 Temperature Pulse Rate 63 73 65 Respiratory 24 13 10 L Rate Blood Pressure 171/87 169/88 182/86 O2 Sat by Pulse 98 98 100 Oximetry 04/22/21 04/22/21 04/22/21 08:30 09:00 09:25 Temperature Pulse Rate 76 76 Respiratory 13 15 Rate Blood Pressure 194/92 154/94 O2 Sat by Pulse 99 100 94 Oximetry 04/22/21 04/22/21 04/22/21 09:31 10:01 10:30 Temperature Pulse Rate 77 73 65 Respiratory 24 20 14 Rate Blood Pressure 154/94 159/84 142/68 O2 Sat by Pulse 93 91 100 Oximetry 04/22/21 04/22/21 11:00 11:31 Temperature Pulse Rate 61 58 L Respiratory 37 H 35 H Rate Blood Pressure 127/66 127/59 O2 Sat by Pulse 98 98 Oximetry Constitutional: no acute distress, alert, other (middle aged morbidly obese male with mildly increased respiratory effort at rest on BIPAP.) Eyes: non-icteric ENT: oropharynx moist, other (BIPAP FFM) Neck: supple, no lymphadenopathy, no JVD, other (large circumference) Effort: mildly labored Ascultation: Bilateral: diminished breath sounds, rhonchi Percussion: Bilateral: not dull Cardiovascular: regular rate and rhythm Gastrointestinal: normoactive bowel sounds, soft, non-tender, non-distended (protuberant) Integumentary: normal Extremities: no cyanosis, pink and warm, pulses normal, no ischemia or petechiae, edema Neurologic: normal mental status, non-focal exam, pupils equal and round, CN II- XII normal Psychiatric: mood appropriate, affect normal CBC and BMP: 04/22/21 04:49 04/22/21 04:49 ABG, PT/INR, D-dimer: ABG ABG pH 7.480 (7.320-7.450) H 04/19/21 17:21 POC ABG pCO2 37.3 mmHg (32.0-48.0) 04/19/21 17: ABG pCO2 36.2 mm Hg 04/18/21 Unknown POC ABG pO2 108.6 mmHg (83-108) H 04/19/21 17: ABG pO2 134.6 mm Hg (80.0-90.0) H 04/18/21 Unknown POC ABG HCO3 27.2 04/19/21 17: ABG O2 Saturation 98.2 (0-100) 04/19/21 17:21 PT/INR, D-dimer D-Dimer 1880.44 ng/mlDDU (0-234) H 04/22/21 04:49 Abnormal lab findings: Abnormal Labs 04/16/21 04/16/21 04/17/21 21:18 21:18 16:40 WBC 3.5 L RDW Plt Count 85 L Lymph % (Auto) Wilkes % (Auto) Lymph # (Auto) 0.7 L Wilkes # (Auto) Seg Neutrophils % 74.2 H D-Dimer ABG pH POC ABG pO2 ABG pO2 ABG HCO3 ABG O2 Saturation ABG Base Excess ABG Hemoglobin ABG Oxyhemoglobin ABG Sodium ABG Chloride ABG Glucose Oxyhemoglobin Carboxyhemoglobin Sodium 132 L Chloride 93.8 L Carbon Dioxide BUN Creatinine 0.7 L Glucose 125 H POC Glucose Calcium 8.2 L Ferritin 1918.0 H AST 83 H ALT 63 H Lactate Dehydrogenase C-Reactive Protein Albumin 3.7 L Arterial Blood Glucose Arterial Blood Ionized Calcium Coronavirus (PCR) 04/17/21 04/17/21 04/17/21 16:40 16:40 16:40 WBC RDW Plt Count Lymph % (Auto) Wilkes % (Auto) Lymph # (Auto) Wilkes # (Auto) Seg Neutrophils % D-Dimer 306.45 H ABG pH POC ABG pO2 ABG pO2 ABG HCO3 ABG O2 Saturation ABG Base Excess ABG Hemoglobin ABG Oxyhemoglobin ABG Sodium ABG Chloride ABG Glucose Oxyhemoglobin Carboxyhemoglobin Sodium 135 L Chloride 96.2 L Carbon Dioxide BUN Creatinine Glucose 155 H POC Glucose Calcium Ferritin AST 72 H ALT 68 H Lactate Dehydrogenase 505 H C-Reactive Protein 16.30 H Albumin 3.5 L Arterial Blood Glucose Arterial Blood Ionized Calcium Coronavirus (PCR) 04/17/21 04/17/21 04/18/21 18:45 Unknown 03:53 WBC RDW 13.1 L Plt Count 115 L Lymph % (Auto) 13.0 L Wilkes % (Auto) 8.7 H Lymph # (Auto) 1.0 L Wilkes # (Auto) Seg Neutrophils % 78.2 H D-Dimer ABG pH POC ABG pO2 ABG pO2 56.8 L ABG HCO3 27.4 H ABG O2 Saturation 90.8 L ABG Base Excess 3.1 H ABG Hemoglobin 11.3 L 13.7 L ABG Oxyhemoglobin ABG Sodium ABG Chloride ABG Glucose Oxyhemoglobin 89.4 L Carboxyhemoglobin Sodium Chloride Carbon Dioxide BUN Creatinine Glucose POC Glucose Calcium Ferritin AST ALT Lactate Dehydrogenase C-Reactive Protein Albumin Arterial Blood Glucose Arterial Blood Ionized Calcium Coronavirus (PCR) 04/18/21 04/18/21 04/18/21 03:53 08:02 Unknown WBC RDW Plt Count Lymph % (Auto) Wilkes % (Auto) Lymph # (Auto) Wilkes # (Auto) Seg Neutrophils % D-Dimer ABG pH POC ABG pO2 ABG pO2 64.3 L 134.6 H ABG HCO3 26.9 H ABG O2 Saturation 93.6 L ABG Base Excess -3.3 L ABG Hemoglobin 11.9 L ABG Oxyhemoglobin ABG Sodium ABG Chloride ABG Glucose Oxyhemoglobin 92.3 L Carboxyhemoglobin Sodium 135 L Chloride 95.9 L Carbon Dioxide BUN Creatinine 0.7 L Glucose 149 H POC Glucose Calcium Ferritin AST 62 H ALT 59 H Lactate Dehydrogenase C-Reactive Protein Albumin 3.3 L Arterial Blood Glucose Arterial Blood Ionized Calcium Coronavirus (PCR) 04/19/21 04/19/21 04/19/21 01:37 07:28 08:44 WBC RDW Plt Count Lymph % (Auto) Wilkes % (Auto) Lymph # (Auto) Wilkes # (Auto) Seg Neutrophils % D-Dimer ABG pH POC ABG pO2 56.3 L ABG pO2 ABG HCO3 ABG O2 Saturation ABG Base Excess ABG Hemoglobin ABG Oxyhemoglobin 88.3 L ABG Sodium 132.8 L ABG Chloride 96.0 L ABG Glucose 145 H Oxyhemoglobin Carboxyhemoglobin 0.4 L Sodium Chloride 97.4 L Carbon Dioxide BUN Creatinine 0.7 L Glucose 130 H POC Glucose 135 H Calcium Ferritin AST 53 H ALT Lactate Dehydrogenase C-Reactive Protein Albumin 3.6 L Arterial Blood Glucose 145 H Arterial Blood Ionized Calcium 4.5 L Coronavirus (PCR) 04/19/21 04/19/21 04/19/21 08:44 11:30 16:53 WBC RDW 12.8 L Plt Count Lymph % (Auto) Wilkes % (Auto) Lymph # (Auto) Wilkes # (Auto) Seg Neutrophils % D-Dimer ABG pH POC ABG pO2 ABG pO2 ABG HCO3 ABG O2 Saturation ABG Base Excess ABG Hemoglobin ABG Oxyhemoglobin ABG Sodium ABG Chloride ABG Glucose Oxyhemoglobin Carboxyhemoglobin Sodium Chloride Carbon Dioxide BUN Creatinine Glucose POC Glucose 129 H 146 H Calcium Ferritin AST ALT Lactate Dehydrogenase C-Reactive Protein Albumin Arterial Blood Glucose Arterial Blood Ionized Calcium Coronavirus (PCR) 04/19/21 04/19/21 04/20/21 17:21 21:07 07:18 WBC RDW Plt Count Lymph % (Auto) Wilkes % (Auto) Lymph # (Auto) Wilkes # (Auto) Seg Neutrophils % D-Dimer ABG pH 7.480 H POC ABG pO2 108.6 H ABG pO2 ABG HCO3 ABG O2 Saturation ABG Base Excess ABG Hemoglobin ABG Oxyhemoglobin ABG Sodium 134.1 L ABG Chloride 97.0 L ABG Glucose 167 H Oxyhemoglobin Carboxyhemoglobin 0.4 L Sodium Chloride Carbon Dioxide BUN Creatinine Glucose POC Glucose 152 H 128 H Calcium Ferritin AST ALT Lactate Dehydrogenase C-Reactive Protein Albumin Arterial Blood Glucose 167 H Arterial Blood Ionized Calcium Coronavirus (PCR) 04/20/21 04/20/21 04/20/21 11:08 11:08 11:08 WBC RDW Plt Count Lymph % (Auto) Wilkes % (Auto) Lymph # (Auto) Wilkes # (Auto) Seg Neutrophils % D-Dimer 1082.55 H ABG pH POC ABG pO2 ABG pO2 ABG HCO3 ABG O2 Saturation ABG Base Excess ABG Hemoglobin ABG Oxyhemoglobin ABG Sodium ABG Chloride ABG Glucose Oxyhemoglobin Carboxyhemoglobin Sodium Chloride Carbon Dioxide BUN 26 H Creatinine Glucose 121 H POC Glucose Calcium Ferritin 1389.0 H AST 46 H ALT Lactate Dehydrogenase 647 H C-Reactive Protein 5.50 H Albumin 3.5 L Arterial Blood Glucose Arterial Blood Ionized Calcium Coronavirus (PCR) 04/20/21 04/20/21 04/20/21 11:08 16:04 21:10 WBC RDW 12.9 L Plt Count Lymph % (Auto) Wilkes % (Auto) 14.0 H Lymph # (Auto) Wilkes # (Auto) 0.9 H Seg Neutrophils % D-Dimer ABG pH POC ABG pO2 ABG pO2 ABG HCO3 ABG O2 Saturation ABG Base Excess ABG Hemoglobin ABG Oxyhemoglobin ABG Sodium ABG Chloride ABG Glucose Oxyhemoglobin Carboxyhemoglobin Sodium Chloride Carbon Dioxide BUN Creatinine Glucose POC Glucose 159 H 149 H Calcium Ferritin AST ALT Lactate Dehydrogenase C-Reactive Protein Albumin Arterial Blood Glucose Arterial Blood Ionized Calcium Coronavirus (PCR) 04/20/21 04/21/21 04/21/21 Unknown 11:34 11:34 WBC RDW 13.1 L Plt Count Lymph % (Auto) Wilkes % (Auto) 13.0 H Lymph # (Auto) Wilkes # (Auto) 1.2 H Seg Neutrophils % 70.4 H D-Dimer ABG pH POC ABG pO2 ABG pO2 ABG HCO3 ABG O2 Saturation ABG Base Excess ABG Hemoglobin ABG Oxyhemoglobin ABG Sodium ABG Chloride ABG Glucose Oxyhemoglobin Carboxyhemoglobin Sodium Chloride Carbon Dioxide BUN 27 H Creatinine Glucose 107 H POC Glucose Calcium Ferritin AST 46 H ALT Lactate Dehydrogenase C-Reactive Protein Albumin 3.4 L Arterial Blood Glucose Arterial Blood Ionized Calcium Coronavirus (PCR) Positive A 04/21/21 04/21/21 04/22/21 17:00 22:05 04:49 WBC RDW Plt Count Lymph % (Auto) 12.2 L Wilkes % (Auto) 10.7 H Lymph # (Auto) Wilkes # (Auto) 1.1 H Seg Neutrophils % 76.6 H D-Dimer ABG pH POC ABG pO2 ABG pO2 ABG HCO3 ABG O2 Saturation ABG Base Excess ABG Hemoglobin ABG Oxyhemoglobin ABG Sodium ABG Chloride ABG Glucose Oxyhemoglobin Carboxyhemoglobin Sodium Chloride Carbon Dioxide BUN Creatinine Glucose POC Glucose 138 H 133 H Calcium Ferritin AST ALT Lactate Dehydrogenase C-Reactive Protein Albumin Arterial Blood Glucose Arterial Blood Ionized Calcium Coronavirus (PCR) 04/22/21 04/22/21 04/22/21 04:49 04:49 04:49 WBC RDW Plt Count Lymph % (Auto) Wilkes % (Auto) Lymph # (Auto) Wilkes # (Auto) Seg Neutrophils % D-Dimer 1880.44 H ABG pH POC ABG pO2 ABG pO2 ABG HCO3 ABG O2 Saturation ABG Base Excess ABG Hemoglobin ABG Oxyhemoglobin ABG Sodium ABG Chloride ABG Glucose Oxyhemoglobin Carboxyhemoglobin Sodium Chloride 108.6 H Carbon Dioxide 21 L D BUN 28 H Creatinine 0.6 L Glucose 115 H POC Glucose Calcium Ferritin 1185.0 H AST 50 H ALT Lactate Dehydrogenase 759 H C-Reactive Protein 1.60 H Albumin 3.1 L Arterial Blood Glucose Arterial Blood Ionized Calcium Coronavirus (PCR) Chest x-ray: report reviewed, image reviewed Additional Studies: CHEST 1 VIEW 04/22/2021 INDICATION / CLINICAL INFORMATION: covid 19 pna. COMPARISON: 04/20/2021 FINDINGS: SUPPORT DEVICES: None. HEART / MEDIASTINUM: No significant abnormality. LUNGS / PLEURA: Severe diffuse bilateral pulmonary opacities persist without significant interval change, given slight differences in technique. No pneumothorax. ADDITIONAL FINDINGS: No significant additional findings. IMPRESSION: 1. Stable appearance of severe bilateral pulmonary opacities. Allied health notes reviewed: nursing
[2021-04-22] MEDS: GABAPENTIN 300 MG CAP PO SCH ×4 (14:30→21:10)
--- NOTE | 2021-04-22 17:00 | Progress Note ---
Assessment and Plan Cultures: COVID-19 PCR: Positive outpatient. A/P: 51-year-old man past medical history morbid obesity, hypertension, CAD #Severe COVID-19 pneumonia: Patient presented with a week of symptoms, chest CT with diffuse groundglass opacities, admission O2 sats decreased on room air. Inflammatory markers elevated #Acute hypoxemic respiratory failure: Likely secondary to COVID-19 infection. On high flow nasal cannula. #Morbid obesity: Associated with worse COVID-19 outcomes Recommendations: -Dexamethasone 6 mg IV/PO daily for 10 days -Remdesivir 200 mg IV q day x 1 followed by 100 mg IV q day x 4 days -Obtain q48-72h inflammatory markers - ferritin, Ddimer, CRP, LDH -Received Tocilizumab 04/19/2021 -Anticoagulation per hospital protocol -Proning as able Thank you for the consult, we will continue to follow. Abdiel Wilkerson MD [facility] O: [phone] F: [phone] Subjective Date of service: 04/22/21 Principal diagnosis: AHRF; ARDS; ANKUSH; COVID-19 infxn; Pneumonia; Morbid Obesity Interval history: Afebrile, normal white count. Covid positive. Currently on high flow nasal cannula. Imaging personally reviewed: Chest x-ray: Stable bibasilar opacities. Objective - Exam Narrative Exam: Physical exam deferred to reduce risk of transmission of COVID-19. Please refer to primary team's note. - Constitutional Vitals: Vital Signs Temp Pulse Resp BP Pulse Ox 99.8 F H 82 10 L 126/61 92 04/22/21 16:00 04/22/21 14:31 04/22/21 14:31 04/22/21 14:31 04/22/21 14:31 Temperature -Last 24 Hours Temperature 99.8 F Temperature 99.5 F Temperature 98.6 F Temperature 98.2 F Temperature 98.5 F Temperature 98.2 F - Labs CBC & Chem 7: 04/22/21 04:49 04/22/21 04:49 Labs: Abnormal lab results 04/21/21 04/21/21 04/22/21 Range/Units 17:00 22:05 04:49 Lymph % (Auto) 12.2 L (13.4-35.0) % Bureau % (Auto) 10.7 H (0.0-7.3) % Bureau # (Auto) 1.1 H (0.0-0.8) K/mm3 Seg Neutrophils % 76.6 H (40.0-70.0) % D-Dimer (0-234) ng/mlDDU Chloride (98-107) mmol/L Carbon Dioxide (22-30) mmol/L BUN (9-20) mg/dL Creatinine (0.8-1.3) mg/dL Glucose (75-100) mg/dL POC Glucose 138 H 133 H (70-105) mg/dL Ferritin (30.0-300.0) ng/mL AST (5-40) units/L Lactate Dehydrogenase (91-180) units/L C-Reactive Protein (0.00-1.30) mg/dL Albumin (3.9-5) g/dL 04/22/21 04/22/21 04/22/21 Range/Units 04:49 04:49 04:49 Lymph % (Auto) (13.4-35.0) % Bureau % (Auto) (0.0-7.3) % Bureau # (Auto) (0.0-0.8) K/mm3 Seg Neutrophils % (40.0-70.0) % D-Dimer 1880.44 H (0-234) ng/mlDDU Chloride 108.6 H (98-107) mmol/L Carbon Dioxide 21 L D (22-30) mmol/L BUN 28 H (9-20) mg/dL Creatinine 0.6 L (0.8-1.3) mg/dL Glucose 115 H (75-100) mg/dL POC Glucose (70-105) mg/dL Ferritin 1185.0 H (30.0-300.0) ng/mL AST 50 H (5-40) units/L Lactate Dehydrogenase 759 H (91-180) units/L C-Reactive Protein 1.60 H (0.00-1.30) mg/dL Albumin 3.1 L (3.9-5) g/dL 04/22/21 Range/Units 16:17 Lymph % (Auto) (13.4-35.0) % Bureau % (Auto) (0.0-7.3) % Bureau # (Auto) (0.0-0.8) K/mm3 Seg Neutrophils % (40.0-70.0) % D-Dimer (0-234) ng/mlDDU Chloride (98-107) mmol/L Carbon Dioxide (22-30) mmol/L BUN (9-20) mg/dL Creatinine (0.8-1.3) mg/dL Glucose (75-100) mg/dL POC Glucose 158 H (70-105) mg/dL Ferritin (30.0-300.0) ng/mL AST (5-40) units/L Lactate Dehydrogenase (91-180) units/L C-Reactive Protein (0.00-1.30) mg/dL Albumin (3.9-5) g/dL
[2021-04-22] MEDS: ALPRAZolam 0.25 MG TAB PO SCH (21:11)
[2021-04-23] MEDS: BENZONATATE 100 MG CAP PO SCH ×3 (06:32→21:08)
[2021-04-23] MEDS: HEPARIN 5,000 UNIT/1 ML VIAL SUB-Q SCH ×3 (06:32→21:08)
[2021-04-23] MEDS: GABAPENTIN 300 MG CAP PO SCH ×3 (08:45→21:08)
[2021-04-23] MEDS: BUDESONIDE 0.5 MG/2 ML NEBU IH SCH ×2 (09:36→20:45)
[2021-04-23] MEDS: dexAMETHasone 4 MG/ML VIAL IV SCH (10:28)
[2021-04-23] MEDS: FAMOTIDINE 20 MG/2 ML INJ IV SCH ×2 (10:28→21:08)
[2021-04-23] MEDS: ASCORBIC ACID 500 MG TAB PO SCH ×2 (10:30→21:08)
[2021-04-23] MEDS: ZINC SULFATE 220 MG CAP PO SCH ×2 (10:30→21:08)
--- NOTE | 2021-04-23 11:27 | Progress Note ---
Assessment and Plan Assessment and plan: 51-year-old male with history of morbid obesity, hypertension, migraine, coronary osteoarthritis and GERD and headache was brought to the emergency room because of progressive shortness of breath. Patient has history of Covid and he was admitted last week to the hospital. He states he was sent home with oxygen however he is needed 4 L of oxygen and his shortness of breath has gotten worse when he walks his oxygen drops down to the mid 80s. Patient stated that he came into contact with an individual who had tested positive for COVID-19 viral infection, but he admits that he has been fully vaccinated against COVID-19 viral infection. In the emergency room patient CT scan of the chest showed sc attered groundglass opacities at the bilateral lung suggesting atypical infectious process. Acute hypoxic respiratory failure Severe COVID-19 pneumonia Morbid obesity 04/19/21:clinically the patient appears to be in no distress despite being on 100% fio2 bipap mask. However, ABG data looks worse, Po2: 56.3. CXR demonstrates worsened pulmonary interstitial infiltrates. Discussed case with Dr. Lagunas. Low threshold for intubation should he worsen. Patient was advised on my encounter to maintain bipap mask and not remove it. Continue therapy with decadron, remdesivir. Dc abx due to low procal. Actemra ordered. Will follow ID recs. Consult PT to continue mobilizing patient. Encouraged patient to do so in presence of care staff 04/20/2021: Remains bipap dependent. No acute changes in respiratory status. Unfortunately he is low threshold for intubation. Will follow pulmonology/ID recommendations. 04/21/2021: Remains bipap dependent. Currenlty 100%. No changes overnight. Will follow pulm/ID recs. 04/22/2021. Patient currently requiring high flow nasal cannula with 40 L O2 FiO2 of 100%. Continue dexamethasone 6 mg IV for total of 10 days with remdesivir IV x5 days. Continue to follow inflammatory markers of ferritin, D-dimer, CRP and LDH. Patient is s/p Tocilizumab. Prone positioning as able. 04/23/2021: Patient currently requiring high flow nasal cannula with 40 L O2 FiO2 of 100% and BiPAP at night. Continue dexamethasone 6 mg IV for total of 10 days with remdesivir IV x5 days. Continue to follow inflammatory markers of ferritin, D-dimer, CRP and LDH. Patient is s/p Tocilizumab. Prone positioning as able. ID and pulmonary following. History Interval history: No new issues overnight Hospitalist Physical - Constitutional Vitals: Temp Pulse Resp BP Pulse Ox 97.9 F 68 24 129/84 97 04/23/21 08:00 04/23/21 10:00 04/23/21 10:00 04/23/21 10:00 04/23/21 10:00 General appearance: Present: no acute distress, obese - EENT Eyes: Present: PERRL, EOM intact ENT: hearing intact, clear oral mucosa, dentition normal - Neck Neck: Present: supple, normal ROM - Respiratory Respiratory effort: normal Respiratory: bilateral: CTA - Cardiovascular Rhythm: regular Heart Sounds: Present: S1 & S2. Absent: gallop, rub - Extremities Extremities: no ischemia, No edema, Full ROM - Abdominal General gastrointestinal: soft, non-tender, non-distended, normal bowel sounds - Integumentary Integumentary: Present: clear, warm, dry - Neurologic Neurologic: CNII-XII intact, moves all extremities Results - Labs CBC & Chem 7: 04/22/21 04:49 04/22/21 04:49 Labs: Laboratory Last Values WBC 10.0 K/mm3 (4.5-11.0) 04/22/21 04:49 RBC 4.74 M/mm3 (3.65-5.03) 04/22/21 04:49 Hgb 13.7 gm/dl (11.8-15.2) 04/22/21 04:49 Hct 42.7 % (35.5-45.6) 04/22/21 04:49 MCV 90 fl (84-94) 04/22/21 04:49 MCH 29 pg (28-32) 04/22/21 04:49 MCHC 32 % (32-34) 04/22/21 04:49 RDW 13.2 % (13.2-15.2) 04/22/21 04:49 Plt Count 179 K/mm3 (140-440) 04/22/21 04:49 Lymph % (Auto) 12.2 % (13.4-35.0) L 04/22/21 04:49 [place] % (Auto) 10.7 % (0.0-7.3) H 04/22/21 04:49 Eos % (Auto) 0.4 % (0.0-4.3) 04/22/21 04:49 Baso % (Auto) 0.1 % (0.0-1.8) 04/22/21 04:49 Lymph # (Auto) 1.2 K/mm3 (1.2-5.4) 04/22/21 04:49 [place] # (Auto) 1.1 K/mm3 (0.0-0.8) H 04/22/21 04:49 Eos # (Auto) 0.0 K/mm3 (0.0-0.4) 04/22/21 04:49 Baso # (Auto) 0.0 K/mm3 (0.0-0.1) 04/22/21 04:49 Seg Neutrophils % 76.6 % (40.0-70.0) H 04/22/21 04:49 Seg Neutrophils # 7.7 K/mm3 (1.8-7.7) 04/22/21 04:49 D-Dimer 1880.44 ng/mlDDU (0-234) H 04/22/21 04:49 ABG pH 7.480 (7.320-7.450) H 04/19/21 17:21 POC ABG pCO2 37.3 mmHg (32.0-48.0) 04/19/21 17:21 ABG pCO2 36.2 mm Hg 04/18/21 Unknown POC ABG pO2 108.6 mmHg (83-108) H 04/19/21 17: ABG pO2 134.6 mm Hg (80.0-90.0) H 04/18/21 Unknown POC ABG HCO3 27.2 04/19/21 17: ABG HCO3 21.0 mmol/L (20.0-26.0) 04/18/21 Unknown ABG O2 Saturation 98.2 (0-100) 04/19/21 17: ABG O2 Content 22.0 (0.0-44) 04/18/21 Unknown POC ABG Base Excess 3.7 04/19/21 17: ABG Base Excess -3.3 mmol/L (-2.0-3.0) L 04/18/21 Unknown ABG Hemoglobin 14.0 (12.0-17.5) 04/19/21 17: ABG Oxyhemoglobin 97.5 (94-98) 04/19/21 17:21 ABG Carboxyhemoglobin 0.7 % (0.0-5.0) 04/18/21 Unknown ABG Methemoglobin 0.3 (0.0-1.5) 04/19/21 17:21 ABG Sodium 134.1 mmol/L (136.0-145.0) L 04/19/21 17: ABG Potassium 4.4 mmol/L (3.40-4.50) 04/19/21 17: ABG Chloride 97.0 mmol/L (98-107) L 04/19/21 17: ABG Glucose 167 mg/dL (65-95) H 04/19/21 17: Oxyhemoglobin 97.2 % (95.0-99.0) 04/18/21 Unknown Carboxyhemoglobin 0.4 (0.5-1.5) L 04/19/21 17:21 FiO2 100 % 04/18/21 Unknown FiO2 % 100 04/19/21 17:21 Sodium 143 mmol/L (137-145) 04/22/21 04:49 Potassium 4.8 mmol/L (3.6-5.0) 04/22/21 04:49 Chloride 108.6 mmol/L (98-107) H 04/22/21 04:49 Carbon Dioxide 21 mmol/L (22-30) L D 04/22/21 04:49 Anion Gap 18 mmol/L 04/22/21 04:49 BUN 28 mg/dL (9-20) H 04/22/21 04:49 Creatinine 0.6 mg/dL (0.8-1.3) L 04/22/21 04:49 Estimated GFR > 60 ml/min 04/22/21 04:49 BUN/Creatinine Ratio 47 % 04/22/21 04:49 Glucose 115 mg/dL (75-100) H 04/22/21 04:49 POC Glucose 87 mg/dL (70-105) 04/23/21 08:01 Lactic Acid 1.10 mmol/L (0.7-2.0) 04/16/21 21:18 Calcium 8.4 mg/dL (8.4-10.2) 04/22/21 04:49 Ferritin 1185.0 ng/mL (30.0-300.0) H 04/22/21 04:49 Total Bilirubin 0.80 mg/dL (0.1-1.2) 04/22/21 04:49 AST 50 units/L (5-40) H 04/22/21 04:49 ALT 53 units/L (7-56) 04/22/21 04:49 Alkaline Phosphatase 70 units/L (35-129) 04/22/21 04:49 Lactate Dehydrogenase 759 units/L (91-180) H 04/22/21 04:49 C-Reactive Protein 1.60 mg/dL (0.00-1.30) H 04/22/21 04:49 NT-Pro-B Natriuret Pep 79.47 pg/mL (0-900) 04/17/21 16:40 Total Protein 6.4 g/dL (6.3-8.2) 04/22/21 04:49 Albumin 3.1 g/dL (3.9-5) L 04/22/21 04:49 Albumin/Globulin Ratio 0.9 % 04/22/21 04:49 Procalcitonin 0.15 ng/mL (<0.15) 04/17/21 16:40 Arterial Blood Glucose 167 mg/dL (65-95) H 04/19/21 17:21 Arterial Blood Ionized Calcium 4.6 mg/dL (4.6-5.3) 04/19/21 17:21 Coronavirus (PCR) Positive (Negative) A 04/20/21 Unknown Martin/IV: Voiding Method Urinal Active Medications - Current Medications Current Medications: Generic Name Dose Route Start Last Admin Trade Name Freq PRN Reason Stop Dose Admin Acetaminophen 650 mg 04/17/21 01:45 Acetaminophen 325 Mg Tab PO Q4H PRN Pain MILD(1-3)/Fever >100.5/AL[place]ANDER Albuterol 2.5 mg 04/17/21 01:45 Albuterol 2.5 Mg/3 Ml Nebu IH Q4HRT PRN Shortness Of Breath Alprazolam 0.25 mg 04/17/21 22:00 04/22/21 21:11 Alprazolam 0.25 Mg Tab PO 0.25 mg QHS DEIRDRE Administration Ascorbic Acid 1,000 mg 04/17/21 02:00 04/23/21 10:30 Ascorbic Acid 500 Mg Tab PO 1,000 mg Q12HR DEIRDRE Administration Benzonatate 100 mg 04/17/21 06:00 04/23/21 06:32 Benzonatate 100 Mg Cap PO 100 mg Q8HR DEIRDRE Administration Budesonide 0.5 mg 04/19/21 20:00 04/23/21 09:36 Budesonide 0.5 Mg/2 Ml Nebu IH Not Given Q12HRT [facility] Cyclobenzaprine HCl 10 mg 04/17/21 01:49 04/18/21 09:28 Cyclobenzaprine 10 Mg Tab PO 10 mg TID PRN Administration Spasms Dexamethasone 6 mg 04/17/21 10:00 04/23/21 10:28 Dexamethasone 4 Mg/Ml Vial IV 04/25/21 10:01 6 mg DAILY DEIRDRE Administration Famotidine 20 mg 04/21/21 10:00 04/23/21 10:28 Famotidine 20 Mg/2 Ml Inj IV 20 mg BID DEIRDRE Administration Gabapentin 300 mg 04/17/21 08:00 04/23/21 08:45 Gabapentin 300 Mg Cap PO 300 mg TID DEIRDRE Administration Heparin Sodium (Porcine) 5,000 unit 04/17/21 06:00 04/23/21 06:32 Heparin 5,000 Unit/1 Ml Vial SUB-Q 5,000 unit Q8HR DEIRDRE Administration Hydralazine HCl 10 mg 04/17/21 02:00 04/22/21 19:16 Hydralazine 20 Mg/1 Ml Inj IV 10 mg Q6H PRN Administration Blood Pressure Hydromorphone HCl 0.5 mg 04/17/21 01:45 04/18/21 09:27 Hydromorphone 1 Mg/1 Ml Inj IV 0.5 mg Q3H PRN Administration Pain , Severe (7-10) Lorazepam 0.5 mg 04/21/21 08:44 04/21/21 22:18 Lorazepam 2 Mg/Ml Vial IV 0.5 mg Q4H PRN Administration Anxiety Morphine Sulfate 2 mg 04/17/21 01:45 04/18/21 16:38 Morphine 2 Mg/1 Ml Inj IV 2 mg Q4H PRN Administration Pain, Moderate (4-6) Ondansetron HCl 4 mg 04/17/21 01:45 04/18/21 07:48 Ondansetron 4 Mg/2 Ml Inj IV 4 mg Q8H PRN Administration Nausea And Vomiting Sodium Chloride 10 ml 04/17/21 10:00 04/23/21 10:29 Sodium Chloride 0.9% 10 Ml Flush Syringe IV 10 ml BID DEIRDRE Administration Sodium Chloride 10 ml 04/17/21 01:45 Sodium Chloride 0.9% 10 Ml Flush Syringe IV PRN PRN LINE FLUSH Zinc Sulfate 220 mg 04/17/21 22:00 04/23/21 10:30 Zinc Sulfate 220 Mg Cap PO 220 mg BID DEIRDRE Administration
--- NOTE | 2021-04-23 13:11 | Progress Note ---
Assessment and Plan Cultures: COVID-19 PCR: Positive outpatient. A/P: 51-year-old man past medical history morbid obesity, hypertension, CAD #Severe COVID-19 pneumonia: Patient presented with a week of symptoms, chest CT with diffuse groundglass opacities, admission O2 sats decreased on room air. Inflammatory markers elevated #Acute hypoxemic respiratory failure: Likely secondary to COVID-19 infection. On high flow nasal cannula. #Morbid obesity: Associated with worse COVID-19 outcomes Recommendations: -Dexamethasone 6 mg IV/PO daily for 10 days -Completed remdesivir. -Obtain q48-72h inflammatory markers - ferritin, Ddimer, CRP, LDH -Received Tocilizumab 04/19/2021 -Anticoagulation per hospital protocol -Proning as able Thank you for the consult, we will continue to follow. Abdiel Wilkerson MD [facility] ([facility]) O: [phone] F: [phone] Subjective Date of service: 04/23/21 Principal diagnosis: AHRF; ARDS; ANKUSH; COVID-19 infxn; Pneumonia; Morbid Obesity Interval history: Afebrile, normal white count. On HFNC. Objective - Exam Narrative Exam: Physical exam deferred to reduce risk of transmission of COVID-19. Please refer to primary team's note. - Constitutional Vitals: Vital Signs Temp Pulse Resp BP Pulse Ox 99.0 F 71 13 129/84 95 04/23/21 12:00 04/23/21 12:00 04/23/21 12:00 04/23/21 12:00 04/23/21 12:00 Temperature -Last 24 Hours Temperature 99.0 F Temperature 97.9 F Temperature 97.7 F Temperature 97.7 F Temperature 98.8 F Temperature 99.8 F - Labs CBC & Chem 7: 04/22/21 04:49 04/22/21 04:49 Labs: Abnormal lab results 04/22/21 04/22/21 Range/Units 16:17 22:08 POC Glucose 158 H 134 H (70-105) mg/dL
--- NOTE | 2021-04-23 17:42 | Progress Note ---
Assessment and Plan 51-year-old male with history of morbid obesity, hypertension, migraine, coronary osteoarthritis and GERD and headache was brought to the emergency room because of progressive shortness of breath. Patient has history of Covid and he was admitted last week to the hospital. He states he was sent home with oxygen however he is needed 4 L of oxygen and his shortness of breath has gotten worse when he walks his oxygen drops down to the mid 80s. He has frequent cough. Patient states he has some body aches he denies having nausea. Patient stated that he came into contact with an individual who had tested positive for COVID-19 viral infection, but he admits that he has been fully vaccinated against COVID-19 viral infection.Patient smoking, alcohol or drug history not known at this time. In the emergency room patient CT scan of the chest showed scattered groundglass opacities at the bilateral lung suggesting atypical infectious process. Patient awake. Presently on BIPAP 22/12 Rate 30, FIO2 100% and O2 saturation running 94%. Patient says breathing little better than yesterday. Patient afebrile. No leukocytosis. Patients blood pressure 152/87, pulse 59, Respirations 30. Patient awake and alert. Patient sitting up in chair. Presently on Vapotherm FIO2 100% and O2 saturation running 94%. Bipap 22/12, rate 30, FI02 70%. Standby in the room. Patient says breathing better to day. Patient has some cough and shortness of breath on exertion. Patient afebrile. No leukocytosis. Patients blood pressure 154/81, pulse 62, Respirations 22. Patients D dimer going up 1880.44 Recommend Apexaban. Chest xray done 04/20/2021 reported Stable appearance of extensive bilateral pulmonary opacities. Chest xray done 04/22/2021 reported Stable appearance of severe bilateral pulmonary opacities. Patient ABGs ABG on 100% FIO2. ABG pH 7.480 (7.320-7.450) H 04/19/21 17:21 POC ABG pCO2 37.3 mmHg (32.0-48.0) 04/19/21 17: ABG pCO2 36.2 mm Hg 04/18/21 Unknown POC ABG pO2 108.6 mmHg (83-108) H 04/19/21 17: ABG pO2 134.6 mm Hg (80.0-90.0) H 04/18/21 Unknown POC ABG HCO3 27.2 04/19/21 17:21 ABG O2 Saturation 98.2 (0-100) 04/19/21 17:21 No further history available at this time. Patient is on Decadron, S/C Heparin, Famotidine, Albuterol/budesonide aerosol treatments. Finished course of Remdesivir. Recommend Apexaban. I spent critical care time of 35 minutes, review the chart, obtain history, examine the patient, review chest , CT scan of chest , review lab results, talking to the nursing staff and respiratory therapy and work up plan of treatment in this critically ill patient. - Patient Problems (1) Acute respiratory failure due to COVID-19 Current Visit: Yes Status: Acute Plan to address problem: Vapotherm FIO2 100%, BIPAP 28/12, rate 30, FIO2 70% standby Continue Decadron. Finished course of Remdesivir. D Dimer going up. Recommend Apexaban. Famotidine. Albuterol/budesonide aerosol treatments. (2) GERD (gastroesophageal reflux disease) Current Visit: Yes Status: Acute Plan to address problem: Patient is on Famotidine. (3) Hypertension Current Visit: Yes Status: Acute Plan to address problem: Management as per primary care. (4) Community acquired pneumonia Current Visit: No Status: Acute Qualifiers: Laterality: unspecified laterality Qualified Code(s): J18.9 - Pneumonia, unspecified organism Plan to address problem: Antibiotics as per infectious diseases. (5) Coronavirus infection Current Visit: Yes Status: Acute Plan to address problem: Patient is on decadron, finished course of Remdesivir. Management as per infectious diseases. D dimer going up Recommend venous doppler studies. Recommend Apixaban. Subjective Date of service: 04/23/21 Principal diagnosis: AHRF; ARDS; ANKUSH; COVID-19 infxn; Pneumonia; Morbid Obesity Interval history: 51-year-old male with history of morbid obesity, hypertension, migraine, coronary osteoarthritis and GERD and headache was brought to the emergency room because of progressive shortness of breath. Patient has history of Covid and he was admitted last week to the hospital. He states he was sent home with oxygen however he is needed 4 L of oxygen and his shortness of breath has gotten worse when he walks his oxygen drops down to the mid 80s. He has frequent cough. Patient states he has some body aches he denies having nausea. Patient stated that he came into contact with an individual who had tested positive for COVID-19 viral infection, but he admits that he has been fully vaccinated against COVID-19 viral infection.Patient smoking, alcohol or drug history not known at this time. In the emergency room patient CT scan of the chest showed scattered groundglass opacities at the bilateral lung suggesting atypical infectious process. Patient awake and alert. Patient sitting up in chair. Presently on Vapotherm FIO2 100% and O2 saturation running 94%. Bipap 09/04, rate 30, FI02 70%. Standby in the room. Patient says breathing better to day. Patient has some cough and shortness of breath on exertion. Patient afebrile. No leukocytosis. Patients blood pressure 154/81, pulse 62, Respirations 22. Patients D dimer going up 1880.44 Recommend Apexaban. Chest xray done 04/20/2021 reported Stable appearance of extensive bilateral pulmonary opacities. Chest xray done 04/22/2021 reported Stable appearance of severe bilateral pulmonary opacities. Patient ABGs ABG on 100% FIO2. ABG pH 7.480 (7.320-7.450) H 04/19/21 17:21 POC ABG pCO2 37.3 mmHg (32.0-48.0) 04/19/21 17: ABG pCO2 36.2 mm Hg 04/18/21 Unknown POC ABG pO2 108.6 mmHg (83-108) H 04/19/21 17: ABG pO2 134.6 mm Hg (80.0-90.0) H 04/18/21 Unknown POC ABG HCO3 27.2 04/19/21 17: ABG O2 Saturation 98.2 (0-100) 04/19/21 17:21 No further history available at this time. Patient is on Decadron, S/C Heparin, Famotidine, Albuterol/budesonide aerosol treatments. Finished course of Remdesivir. Recommend Apexaban. Objective Vital Signs - 12hr 04/23/21 04/23/21 04/23/21 06:00 06:30 07:00 Temperature Pulse Rate 54 L 54 L 51 L Pulse Rate [ From Monitor] Respiratory 19 10 L 28 H Rate Blood Pressure 144/75 144/75 124/68 O2 Sat by Pulse 95 98 96 Oximetry 04/23/21 04/23/21 04/23/21 07:20 07:30 08:00 Temperature 97.9 F Pulse Rate 56 L 79 Pulse Rate [ From Monitor] Respiratory 15 14 Rate Blood Pressure 124/68 124/68 O2 Sat by Pulse 92 95 96 Oximetry 04/23/21 04/23/21 04/23/21 08:30 09:00 09:30 Temperature Pulse Rate 60 126 H 68 Pulse Rate [ 56 L From Monitor] Respiratory 14 20 17 Rate Blood Pressure 124/68 124/68 129/84 O2 Sat by Pulse 100 88 90 Oximetry 04/23/21 04/23/21 04/23/21 10:00 10:30 11:00 Temperature Pulse Rate 68 87 62 Pulse Rate [ From Monitor] Respiratory 24 16 28 H Rate Blood Pressure 129/84 129/84 129/84 O2 Sat by Pulse 97 98 97 Oximetry 04/23/21 04/23/21 04/23/21 11:30 12:00 12:30 Temperature 99.0 F Pulse Rate 71 61 Pulse Rate [ From Monitor] Respiratory 13 18 Rate Blood Pressure 129/84 129/84 129/84 O2 Sat by Pulse 98 95 97 Oximetry 04/23/21 04/23/21 04/23/21 13:00 13:30 14:00 Temperature Pulse Rate 61 68 65 Pulse Rate [ From Monitor] Respiratory 20 27 H 18 Rate Blood Pressure 129/84 129/84 126/57 O2 Sat by Pulse 94 89 95 Oximetry 04/23/21 04/23/21 04/23/21 14:30 15:00 15:30 Temperature Pulse Rate 62 66 60 Pulse Rate [ From Monitor] Respiratory 20 15 19 Rate Blood Pressure 126/57 126/57 131/61 O2 Sat by Pulse 97 97 96 Oximetry 04/23/21 16:00 Temperature Pulse Rate 61 Pulse Rate [ From Monitor] Respiratory 17 Rate Blood Pressure 132/59 O2 Sat by Pulse 96 Oximetry Constitutional: no acute distress, alert, other (middle aged morbidly obese male with mildly increased respiratory effort at rest on Vapotherm FIO2 100%.) Eyes: non-icteric ENT: oropharynx moist, other (BIPAP FFM) Neck: supple, no lymphadenopathy, no JVD, other (large circumference) Effort: mildly labored Ascultation: Bilateral: diminished breath sounds, rhonchi Percussion: Bilateral: not dull Cardiovascular: regular rate and rhythm Gastrointestinal: normoactive bowel sounds, soft, non-tender, non-distended (protuberant) Integumentary: normal Extremities: no cyanosis, pink and warm, pulses normal, no ischemia or petechiae, edema Neurologic: normal mental status, non-focal exam, pupils equal and round, CN II- XII normal Psychiatric: mood appropriate, affect normal CBC and BMP: 04/22/21 04:49 04/22/21 04:49 ABG, PT/INR, D-dimer: ABG ABG pH 7.480 (7.320-7.450) H 04/19/21 17:21 POC ABG pCO2 37.3 mmHg (32.0-48.0) 04/19/21 17: ABG pCO2 36.2 mm Hg 04/18/21 Unknown POC ABG pO2 108.6 mmHg (83-108) H 04/19/21 17:21 ABG pO2 134.6 mm Hg (80.0-90.0) H 04/18/21 Unknown POC ABG HCO3 27.2 04/19/21 17:21 ABG O2 Saturation 98.2 (0-100) 04/19/21 17:21 PT/INR, D-dimer D-Dimer 1880.44 ng/mlDDU (0-234) H 04/22/21 04:49 Abnormal lab findings: Abnormal Labs 04/16/21 04/16/21 04/17/21 21:18 21:18 16:40 WBC 3.5 L RDW Plt Count 85 L Lymph % (Auto) [place] % (Auto) Lymph # (Auto) 0.7 L [place] # (Auto) Seg Neutrophils % 74.2 H D-Dimer ABG pH POC ABG pO2 ABG pO2 ABG HCO3 ABG O2 Saturation ABG Base Excess ABG Hemoglobin ABG Oxyhemoglobin ABG Sodium ABG Chloride ABG Glucose Oxyhemoglobin Carboxyhemoglobin Sodium 132 L Chloride 93.8 L Carbon Dioxide BUN Creatinine 0.7 L Glucose 125 H POC Glucose Calcium 8.2 L Ferritin 1918.0 H AST 83 H ALT 63 H Lactate Dehydrogenase C-Reactive Protein Albumin 3.7 L Arterial Blood Glucose Arterial Blood Ionized Calcium Coronavirus (PCR) 04/17/21 04/17/21 04/17/21 16:40 16:40 16:40 WBC RDW Plt Count Lymph % (Auto) [place] % (Auto) Lymph # (Auto) [place] # (Auto) Seg Neutrophils % D-Dimer 306.45 H ABG pH POC ABG pO2 ABG pO2 ABG HCO3 ABG O2 Saturation ABG Base Excess ABG Hemoglobin ABG Oxyhemoglobin ABG Sodium ABG Chloride ABG Glucose Oxyhemoglobin Carboxyhemoglobin Sodium 135 L Chloride 96.2 L Carbon Dioxide BUN Creatinine Glucose 155 H POC Glucose Calcium Ferritin AST 72 H ALT 68 H Lactate Dehydrogenase 505 H C-Reactive Protein 16.30 H Albumin 3.5 L Arterial Blood Glucose Arterial Blood Ionized Calcium Coronavirus (PCR) 04/17/21 04/17/21 04/18/21 18:45 Unknown 03:53 WBC RDW 13.1 L Plt Count 115 L Lymph % (Auto) 13.0 L [place] % (Auto) 8.7 H Lymph # (Auto) 1.0 L [place] # (Auto) Seg Neutrophils % 78.2 H D-Dimer ABG pH POC ABG pO2 ABG pO2 56.8 L ABG HCO3 27.4 H ABG O2 Saturation 90.8 L ABG Base Excess 3.1 H ABG Hemoglobin 11.3 L 13.7 L ABG Oxyhemoglobin ABG Sodium ABG Chloride ABG Glucose Oxyhemoglobin 89.4 L Carboxyhemoglobin Sodium Chloride Carbon Dioxide BUN Creatinine Glucose POC Glucose Calcium Ferritin AST ALT Lactate Dehydrogenase C-Reactive Protein Albumin Arterial Blood Glucose Arterial Blood Ionized Calcium Coronavirus (PCR) 04/18/21 04/18/21 04/18/21 03:53 08:02 Unknown WBC RDW Plt Count Lymph % (Auto) [place] % (Auto) Lymph # (Auto) [place] # (Auto) Seg Neutrophils % D-Dimer ABG pH POC ABG pO2 ABG pO2 64.3 L 134.6 H ABG HCO3 26.9 H ABG O2 Saturation 93.6 L ABG Base Excess -3.3 L ABG Hemoglobin 11.9 L ABG Oxyhemoglobin ABG Sodium ABG Chloride ABG Glucose Oxyhemoglobin 92.3 L Carboxyhemoglobin Sodium 135 L Chloride 95.9 L Carbon Dioxide BUN Creatinine 0.7 L Glucose 149 H POC Glucose Calcium Ferritin AST 62 H ALT 59 H Lactate Dehydrogenase C-Reactive Protein Albumin 3.3 L Arterial Blood Glucose Arterial Blood Ionized Calcium Coronavirus (PCR) 04/19/21 04/19/21 04/19/21 01:37 07:28 08:44 WBC RDW Plt Count Lymph % (Auto) [place] % (Auto) Lymph # (Auto) [place] # (Auto) Seg Neutrophils % D-Dimer ABG pH POC ABG pO2 56.3 L ABG pO2 ABG HCO3 ABG O2 Saturation ABG Base Excess ABG Hemoglobin ABG Oxyhemoglobin 88.3 L ABG Sodium 132.8 L ABG Chloride 96.0 L ABG Glucose 145 H Oxyhemoglobin Carboxyhemoglobin 0.4 L Sodium Chloride 97.4 L Carbon Dioxide BUN Creatinine 0.7 L Glucose 130 H POC Glucose 135 H Calcium Ferritin AST 53 H ALT Lactate Dehydrogenase C-Reactive Protein Albumin 3.6 L Arterial Blood Glucose 145 H Arterial Blood Ionized Calcium 4.5 L Coronavirus (PCR) 04/19/21 04/19/21 04/19/21 08:44 11:30 16:53 WBC RDW 12.8 L Plt Count Lymph % (Auto) [place] % (Auto) Lymph # (Auto) [place] # (Auto) Seg Neutrophils % D-Dimer ABG pH POC ABG pO2 ABG pO2 ABG HCO3 ABG O2 Saturation ABG Base Excess ABG Hemoglobin ABG Oxyhemoglobin ABG Sodium ABG Chloride ABG Glucose Oxyhemoglobin Carboxyhemoglobin Sodium Chloride Carbon Dioxide BUN Creatinine Glucose POC Glucose 129 H 146 H Calcium Ferritin AST ALT Lactate Dehydrogenase C-Reactive Protein Albumin Arterial Blood Glucose Arterial Blood Ionized Calcium Coronavirus (PCR) 04/19/21 04/19/21 04/20/21 17:21 21:07 07:18 WBC RDW Plt Count Lymph % (Auto) [place] % (Auto) Lymph # (Auto) [place] # (Auto) Seg Neutrophils % D-Dimer ABG pH 7.480 H POC ABG pO2 108.6 H ABG pO2 ABG HCO3 ABG O2 Saturation ABG Base Excess ABG Hemoglobin ABG Oxyhemoglobin ABG Sodium 134.1 L ABG Chloride 97.0 L ABG Glucose 167 H Oxyhemoglobin Carboxyhemoglobin 0.4 L Sodium Chloride Carbon Dioxide BUN Creatinine Glucose POC Glucose 152 H 128 H Calcium Ferritin AST ALT Lactate Dehydrogenase C-Reactive Protein Albumin Arterial Blood Glucose 167 H Arterial Blood Ionized Calcium Coronavirus (PCR) 04/20/21 04/20/21 04/20/21 11:08 11:08 11:08 WBC RDW Plt Count Lymph % (Auto) [place] % (Auto) Lymph # (Auto) [place] # (Auto) Seg Neutrophils % D-Dimer 1082.55 H ABG pH POC ABG pO2 ABG pO2 ABG HCO3 ABG O2 Saturation ABG Base Excess ABG Hemoglobin ABG Oxyhemoglobin ABG Sodium ABG Chloride ABG Glucose Oxyhemoglobin Carboxyhemoglobin Sodium Chloride Carbon Dioxide BUN 26 H Creatinine Glucose 121 H POC Glucose Calcium Ferritin 1389.0 H AST 46 H ALT Lactate Dehydrogenase 647 H C-Reactive Protein 5.50 H Albumin 3.5 L Arterial Blood Glucose Arterial Blood Ionized Calcium Coronavirus (PCR) 04/20/21 04/20/21 04/20/21 11:08 16:04 21:10 WBC RDW 12.9 L Plt Count Lymph % (Auto) [place] % (Auto) 14.0 H Lymph # (Auto) [place] # (Auto) 0.9 H Seg Neutrophils % D-Dimer ABG pH POC ABG pO2 ABG pO2 ABG HCO3 ABG O2 Saturation ABG Base Excess ABG Hemoglobin ABG Oxyhemoglobin ABG Sodium ABG Chloride ABG Glucose Oxyhemoglobin Carboxyhemoglobin Sodium Chloride Carbon Dioxide BUN Creatinine Glucose POC Glucose 159 H 149 H Calcium Ferritin AST ALT Lactate Dehydrogenase C-Reactive Protein Albumin Arterial Blood Glucose Arterial Blood Ionized Calcium Coronavirus (PCR) 04/20/21 04/21/21 04/21/21 Unknown 11:34 11:34 WBC RDW 13.1 L Plt Count Lymph % (Auto) [place] % (Auto) 13.0 H Lymph # (Auto) [place] # (Auto) 1.2 H Seg Neutrophils % 70.4 H D-Dimer ABG pH POC ABG pO2 ABG pO2 ABG HCO3 ABG O2 Saturation ABG Base Excess ABG Hemoglobin ABG Oxyhemoglobin ABG Sodium ABG Chloride ABG Glucose Oxyhemoglobin Carboxyhemoglobin Sodium Chloride Carbon Dioxide BUN 27 H Creatinine Glucose 107 H POC Glucose Calcium Ferritin AST 46 H ALT Lactate Dehydrogenase C-Reactive Protein Albumin 3.4 L Arterial Blood Glucose Arterial Blood Ionized Calcium Coronavirus (PCR) Positive A 04/21/21 04/21/21 04/22/21 17:00 22:05 04:49 WBC RDW Plt Count Lymph % (Auto) 12.2 L [place] % (Auto) 10.7 H Lymph # (Auto) [place] # (Auto) 1.1 H Seg Neutrophils % 76.6 H D-Dimer ABG pH POC ABG pO2 ABG pO2 ABG HCO3 ABG O2 Saturation ABG Base Excess ABG Hemoglobin ABG Oxyhemoglobin ABG Sodium ABG Chloride ABG Glucose Oxyhemoglobin Carboxyhemoglobin Sodium Chloride Carbon Dioxide BUN Creatinine Glucose POC Glucose 138 H 133 H Calcium Ferritin AST ALT Lactate Dehydrogenase C-Reactive Protein Albumin Arterial Blood Glucose Arterial Blood Ionized Calcium Coronavirus (PCR) 04/22/21 04/22/21 04/22/21 04:49 04:49 04:49 WBC RDW Plt Count Lymph % (Auto) [place] % (Auto) Lymph # (Auto) [place] # (Auto) Seg Neutrophils % D-Dimer 1880.44 H ABG pH POC ABG pO2 ABG pO2 ABG HCO3 ABG O2 Saturation ABG Base Excess ABG Hemoglobin ABG Oxyhemoglobin ABG Sodium ABG Chloride ABG Glucose Oxyhemoglobin Carboxyhemoglobin Sodium Chloride 108.6 H Carbon Dioxide 21 L D BUN 28 H Creatinine 0.6 L Glucose 115 H POC Glucose Calcium Ferritin 1185.0 H AST 50 H ALT Lactate Dehydrogenase 759 H C-Reactive Protein 1.60 H Albumin 3.1 L Arterial Blood Glucose Arterial Blood Ionized Calcium Coronavirus (PCR) 04/22/21 04/22/21 16:17 22:08 WBC RDW Plt Count Lymph % (Auto) [place] % (Auto) Lymph # (Auto) [place] # (Auto) Seg Neutrophils % D-Dimer ABG pH POC ABG pO2 ABG pO2 ABG HCO3 ABG O2 Saturation ABG Base Excess ABG Hemoglobin ABG Oxyhemoglobin ABG Sodium ABG Chloride ABG Glucose Oxyhemoglobin Carboxyhemoglobin Sodium Chloride Carbon Dioxide BUN Creatinine Glucose POC Glucose 158 H 134 H Calcium Ferritin AST ALT Lactate Dehydrogenase C-Reactive Protein Albumin Arterial Blood Glucose Arterial Blood Ionized Calcium Coronavirus (PCR) Allied health notes reviewed: nursing
[2021-04-23] MEDS: ALPRAZolam 0.25 MG TAB PO SCH (21:08)
[2021-04-24] MEDS: HEPARIN 5,000 UNIT/1 ML VIAL SUB-Q SCH ×3 (08:35→21:20)
[2021-04-24] MEDS: GABAPENTIN 300 MG CAP PO SCH ×3 (08:36→21:20)
[2021-04-24] MEDS: BENZONATATE 100 MG CAP PO SCH ×3 (08:36→21:19)
[2021-04-24] MEDS: dexAMETHasone 4 MG/ML VIAL IV SCH (09:32)
[2021-04-24] MEDS: ZINC SULFATE 220 MG CAP PO SCH ×2 (09:33→21:20)
[2021-04-24] MEDS: FAMOTIDINE 20 MG/2 ML INJ IV SCH ×2 (09:33→21:20)
[2021-04-24] MEDS: ASCORBIC ACID 500 MG TAB PO SCH ×2 (09:33→21:19)
[2021-04-24] MEDS: BUDESONIDE 0.5 MG/2 ML NEBU IH SCH (10:13)
--- NOTE | 2021-04-24 12:38 | Progress Note ---
Assessment and Plan Assessment and plan: 51-year-old male with history of morbid obesity, hypertension, migraine, coronary osteoarthritis and GERD and headache was brought to the emergency room because of progressive shortness of breath. Patient has history of Covid and he was admitted last week to the hospital. He states he was sent home with oxygen however he is needed 4 L of oxygen and his shortness of breath has gotten worse when he walks his oxygen drops down to the mid 80s. Patient stated that he came into contact with an individual who had tested positive for COVID-19 viral infection, but he admits that he has been fully vaccinated against COVID-19 viral infection. In the emergency room patient CT scan of the chest showed sc attered groundglass opacities at the bilateral lung suggesting atypical infectious process. Acute hypoxic respiratory failure Severe COVID-19 pneumonia Morbid obesity 04/19/21:clinically the patient appears to be in no distress despite being on 100% fio2 bipap mask. However, ABG data looks worse, Po2: 56.3. CXR demonstrates worsened pulmonary interstitial infiltrates. Discussed case with Dr. Lagunas. Low threshold for intubation should he worsen. Patient was advised on my encounter to maintain bipap mask and not remove it. Continue therapy with decadron, remdesivir. Dc abx due to low procal. Actemra ordered. Will follow ID recs. Consult PT to continue mobilizing patient. Encouraged patient to do so in presence of care staff 04/20/2021: Remains bipap dependent. No acute changes in respiratory status. Unfortunately he is low threshold for intubation. Will follow pulmonology/ID recommendations. 04/21/2021: Remains bipap dependent. Currenlty 100%. No changes overnight. Will follow pulm/ID recs. 04/22/2021. Patient currently requiring high flow nasal cannula with 40 L O2 FiO2 of 100%. Continue dexamethasone 6 mg IV for total of 10 days with remdesivir IV x5 days. Continue to follow inflammatory markers of ferritin, D-dimer, CRP and LDH. Patient is s/p Tocilizumab. Prone positioning as able. 04/23/2021: Patient currently requiring high flow nasal cannula with 40 L O2 FiO2 of 100% and BiPAP at night. Continue dexamethasone 6 mg IV for total of 10 days with remdesivir IV x5 days. Continue to follow inflammatory markers of ferritin, D-dimer, CRP and LDH. Patient is s/p Tocilizumab. Prone positioning as able. ID and pulmonary following. 04/24/2021: Patient currently requiring high flow nasal cannula with 40 L O2 FiO2 of 90% and BiPAP at night. Continue dexamethasone 6 mg IV for total of 10 days with remdesivir IV x5 days. Continue to follow inflammatory markers of ferritin, D-dimer, CRP and LDH. Patient is s/p Tocilizumab. Prone positioning as able. ID and pulmonary following. History Interval history: No new issues overnight Hospitalist Physical - Constitutional Vitals: Temp Pulse Resp BP Pulse Ox 98.0 F 63 18 131/80 96 04/24/21 07:59 04/24/21 06:00 04/24/21 06:00 04/24/21 06:00 04/24/21 08:45 General appearance: Present: no acute distress, obese - EENT Eyes: Present: PERRL, EOM intact ENT: hearing intact, clear oral mucosa, dentition normal - Neck Neck: Present: supple, normal ROM - Respiratory Respiratory effort: normal Respiratory: bilateral: CTA - Cardiovascular Rhythm: regular Heart Sounds: Present: S1 & S2. Absent: gallop, rub - Extremities Extremities: no ischemia, No edema, Full ROM - Abdominal General gastrointestinal: soft, non-tender, non-distended, normal bowel sounds - Integumentary Integumentary: Present: clear, warm, dry - Neurologic Neurologic: CNII-XII intact, moves all extremities Results - Labs CBC & Chem 7: 04/22/21 04:49 04/22/21 04:49 Labs: Laboratory Last Values WBC 10.0 K/mm3 (4.5-11.0) 04/22/21 04:49 RBC 4.74 M/mm3 (3.65-5.03) 04/22/21 04:49 Hgb 13.7 gm/dl (11.8-15.2) 04/22/21 04:49 Hct 42.7 % (35.5-45.6) 04/22/21 04:49 MCV 90 fl (84-94) 04/22/21 04:49 MCH 29 pg (28-32) 04/22/21 04:49 MCHC 32 % (32-34) 04/22/21 04:49 RDW 13.2 % (13.2-15.2) 04/22/21 04:49 Plt Count 179 K/mm3 (140-440) 04/22/21 04:49 Lymph % (Auto) 12.2 % (13.4-35.0) L 04/22/21 04:49 Sandoval % (Auto) 10.7 % (0.0-7.3) H 04/22/21 04:49 Eos % (Auto) 0.4 % (0.0-4.3) 04/22/21 04:49 Baso % (Auto) 0.1 % (0.0-1.8) 04/22/21 04:49 Lymph # (Auto) 1.2 K/mm3 (1.2-5.4) 04/22/21 04:49 Sandoval # (Auto) 1.1 K/mm3 (0.0-0.8) H 04/22/21 04:49 Eos # (Auto) 0.0 K/mm3 (0.0-0.4) 04/22/21 04:49 Baso # (Auto) 0.0 K/mm3 (0.0-0.1) 04/22/21 04:49 Seg Neutrophils % 76.6 % (40.0-70.0) H 04/22/21 04:49 Seg Neutrophils # 7.7 K/mm3 (1.8-7.7) 04/22/21 04:49 D-Dimer 1880.44 ng/mlDDU (0-234) H 04/22/21 04:49 ABG pH 7.480 (7.320-7.450) H 04/19/21 17:21 POC ABG pCO2 37.3 mmHg (32.0-48.0) 04/19/21 17:21 ABG pCO2 36.2 mm Hg 04/18/21 Unknown POC ABG pO2 108.6 mmHg (83-108) H 04/19/21 17: ABG pO2 134.6 mm Hg (80.0-90.0) H 04/18/21 Unknown POC ABG HCO3 27.2 04/19/21 17:21 ABG HCO3 21.0 mmol/L (20.0-26.0) 04/18/21 Unknown ABG O2 Saturation 98.2 (0-100) 04/19/21 17: ABG O2 Content 22.0 (0.0-44) 04/18/21 Unknown POC ABG Base Excess 3.7 04/19/21 17: ABG Base Excess -3.3 mmol/L (-2.0-3.0) L 04/18/21 Unknown ABG Hemoglobin 14.0 (12.0-17.5) 04/19/21 17: ABG Oxyhemoglobin 97.5 (94-98) 04/19/21 17: ABG Carboxyhemoglobin 0.7 % (0.0-5.0) 04/18/21 Unknown ABG Methemoglobin 0.3 (0.0-1.5) 04/19/21: ABG Sodium 134.1 mmol/L (136.0-145.0) L 04/19/21 17: ABG Potassium 4.4 mmol/L (3.40-4.50) 04/19/21 17: ABG Chloride 97.0 mmol/L (98-107) L 04/19/21 17: ABG Glucose 167 mg/dL (65-95) H 04/19/21 17: Oxyhemoglobin 97.2 % (95.0-99.0) 04/18/21 Unknown Carboxyhemoglobin 0.4 (0.5-1.5) L 04/19/21 17:21 FiO2 100 % 04/18/21 Unknown FiO2 % 100 04/19/21 17:21 Sodium 143 mmol/L (137-145) 04/22/21 04:49 Potassium 4.8 mmol/L (3.6-5.0) 04/22/21 04:49 Chloride 108.6 mmol/L (98-107) H 04/22/21 04:49 Carbon Dioxide 21 mmol/L (22-30) L D 04/22/21 04:49 Anion Gap 18 mmol/L 04/22/21 04:49 BUN 28 mg/dL (9-20) H 04/22/21 04:49 Creatinine 0.6 mg/dL (0.8-1.3) L 04/22/21 04:49 Estimated GFR > 60 ml/min 04/22/21 04:49 BUN/Creatinine Ratio 47 % 04/22/21 04:49 Glucose 115 mg/dL (75-100) H 04/22/21 04:49 POC Glucose 159 mg/dL (70-105) H 04/23/21 21:14 Lactic Acid 1.10 mmol/L (0.7-2.0) 04/16/21 21:18 Calcium 8.4 mg/dL (8.4-10.2) 04/22/21 04:49 Ferritin 1185.0 ng/mL (30.0-300.0) H 04/22/21 04:49 Total Bilirubin 0.80 mg/dL (0.1-1.2) 04/22/21 04:49 AST 50 units/L (5-40) H 04/22/21 04:49 ALT 53 units/L (7-56) 04/22/21 04:49 Alkaline Phosphatase 70 units/L (35-129) 04/22/21 04:49 Lactate Dehydrogenase 759 units/L (91-180) H 04/22/21 04:49 C-Reactive Protein 1.60 mg/dL (0.00-1.30) H 04/22/21 04:49 NT-Pro-B Natriuret Pep 79.47 pg/mL (0-900) 04/17/21 16:40 Total Protein 6.4 g/dL (6.3-8.2) 04/22/21 04:49 Albumin 3.1 g/dL (3.9-5) L 04/22/21 04:49 Albumin/Globulin Ratio 0.9 % 04/22/21 04:49 Procalcitonin 0.15 ng/mL (<0.15) 04/17/21 16:40 Arterial Blood Glucose 167 mg/dL (65-95) H 04/19/21 17:21 Arterial Blood Ionized Calcium 4.6 mg/dL (4.6-5.3) 04/19/21 17:21 Coronavirus (PCR) Positive (Negative) A 04/20/21 Unknown Martin/IV: Voiding Method Urinal Active Medications - Current Medications Current Medications: Generic Name Dose Route Start Last Admin Trade Name Freq PRN Reason Stop Dose Admin Acetaminophen 650 mg 04/17/21 01:45 Acetaminophen 325 Mg Tab PO Q4H PRN Pain MILD(1-3)/Fever >100.5/ALEXANDER Albuterol 2.5 mg 04/17/21 01:45 Albuterol 2.5 Mg/3 Ml Nebu IH Q4HRT PRN Shortness Of Breath Alprazolam 0.25 mg 04/17/21 22:00 04/23/21 21:08 Alprazolam 0.25 Mg Tab PO 0.25 mg QHS DEIRDRE Administration Ascorbic Acid 1,000 mg 04/17/21 02:00 04/24/21 09:33 Ascorbic Acid 500 Mg Tab PO 1,000 mg Q12HR DEIRDRE Administration Benzonatate 100 mg 04/17/21 06:00 04/24/21 08:36 Benzonatate 100 Mg Cap PO 100 mg Q8HR DEIRDRE Administration Budesonide 0.5 mg 04/19/21 20:00 04/24/21 10:13 Budesonide 0.5 Mg/2 Ml Nebu IH Not Given Q12HRT [facility] Cyclobenzaprine HCl 10 mg 04/17/21 01:49 04/18/21 09:28 Cyclobenzaprine 10 Mg Tab PO 10 mg TID PRN Administration Spasms Dexamethasone 6 mg 04/17/21 10:00 04/24/21 09:32 Dexamethasone 4 Mg/Ml Vial IV 04/25/21 10:01 6 mg DAILY [facility] Administration Famotidine 20 mg 04/21/21 10:00 04/24/21 09:33 Famotidine 20 Mg/2 Ml Inj IV 20 mg BID DEIRDRE Administration Gabapentin 300 mg 04/17/21 08:00 04/24/21 08:36 Gabapentin 300 Mg Cap PO 300 mg TID DEIRDRE Administration Heparin Sodium (Porcine) 5,000 unit 04/17/21 06:00 04/24/21 08:35 Heparin 5,000 Unit/1 Ml Vial SUB-Q 5,000 unit Q8HR DEIRDRE Administration Hydralazine HCl 10 mg 04/17/21 02:00 04/22/21 19:16 Hydralazine 20 Mg/1 Ml Inj IV 10 mg Q6H PRN Administration Blood Pressure Hydromorphone HCl 0.5 mg 04/17/21 01:45 04/18/21 09:27 Hydromorphone 1 Mg/1 Ml Inj IV 0.5 mg Q3H PRN Administration Pain , Severe (7-10) Lorazepam 0.5 mg 04/21/21 08:44 04/21/21 22:18 Lorazepam 2 Mg/Ml Vial IV 0.5 mg Q4H PRN Administration Anxiety Morphine Sulfate 2 mg 04/17/21 01:45 04/18/21 16:38 Morphine 2 Mg/1 Ml Inj IV 2 mg Q4H PRN Administration Pain, Moderate (4-6) Ondansetron HCl 4 mg 04/17/21 01:45 04/18/21 07:48 Ondansetron 4 Mg/2 Ml Inj IV 4 mg Q8H PRN Administration Nausea And Vomiting Sodium Chloride 10 ml 04/17/21 10:00 04/24/21 09:32 Sodium Chloride 0.9% 10 Ml Flush Syringe IV 10 ml BID DEIRDRE Administration Sodium Chloride 10 ml 04/17/21 01:45 Sodium Chloride 0.9% 10 Ml Flush Syringe IV PRN PRN LINE FLUSH Zinc Sulfate 220 mg 04/17/21 22:00 04/24/21 09:33 Zinc Sulfate 220 Mg Cap PO 220 mg BID DEIRDRE Administration
--- NOTE | 2021-04-24 14:21 | Progress Note ---
Assessment and Plan Acute Hypoxemic Respiratory Failure ARDS ANKUSH COVID-19 infection Bilateral pneumonia Leukopenia Morbid obesity Thrombocytopenia Elevated serum transaminases - continue BIPAP qhs with prn daytime use - received Actemra - continue care as below otherwise; - dopplers negative for VTE - continue to wean supplemental oxygen for target O2 sat's > 90% acutely - aspiration precautions - continue bronchodilators with pulmonary hygiene per RT - avoid nephrotoxins, renally dose all medications - avoid benzodiazepine's, reduce the possibility of delirium - complete AB's per ID rec's - continue accuchecks with glycemic control per SSI (While critically ill target blood glucose of 140-180 mg/dL; avoid hypoglycemia) - prn analgesia per pain score - Maintenance of sleep-wake cycle, avoid delirium - G.I. & VTE prophylaxis - PT/OT/ROM exercises - continue mobility protocols for pressure ulcer prophylaxis - Monitor hemodynamics closely - continue other care per attending / other consultants - discharge planning ongoing concurrently COVID SPECIFIC INTERVENTIONS - Remdesivir as per ID/Pulmonary developed protocols (received) - continue systemic steroids for severe COVID-19 infection empirically (Decadron) - follow repeat COVID tests results - zinc and vitamin C supplementation - Monitor inflammatory markers per facility protocol - ferritin, Ddimer, CRP - therapeutic anticoagulation per system Protocol based on d-dimer and clinical considerations (VTE prophylaxis) - Continue contact and airborne isolation .... Re-evaluate in am & prn CONDITION: CRITICAL PROGNOSIS: GUARDED CODE STATUS: FULL CODE The high probability of a clinically significant, sudden or life-threatening det erioration of the [respiratory, ID & cardiovascular] system(s) required my full and direct attention, intervention and personal management. The aggregate critical care time was [35] minutes without overlap. Time includes spent on; [x] Data Review and interpretation [x] Patient assessment and monitoring of vital signs [x] Documentation [x] Medication orders and management Subjective Date of service: 04/24/21 Principal diagnosis: AHRF; ARDS; ANKUSH; COVID-19 infxn; Pneumonia; Morbid Obesity Interval history: Patient is seen today for: Acute Hypoxemic Respiratory Failure; ARDS; ANKUSH; COVID-19 infxn; Pneumonia Seen and examined at bedside; 24hour events reviewed; nursing and respiratory care staff consulted; no adverse overnight events reported to me; resting in bed; doing better but remains on supplemental oxygen via HFNC and 100% FiO2; denies N/V/F/C Objective Vital Signs - 12hr 04/24/21 04/24/21 04/24/21 03:00 04:00 05:00 Temperature 98.3 F Pulse Rate 54 L 52 L 53 L Pulse Rate [ 50 L From Monitor] Respiratory 24 24 26 H Rate Blood Pressure 138/68 143/84 148/73 O2 Sat by Pulse 90 91 96 Oximetry 04/24/21 04/24/21 04/24/21 06:00 07:00 07:59 Temperature 98.0 F Pulse Rate 63 59 L Pulse Rate [ From Monitor] Respiratory 18 22 Rate Blood Pressure 131/80 137/76 O2 Sat by Pulse 94 88 Oximetry 04/24/21 04/24/21 04/24/21 08:00 08:45 09:00 Temperature Pulse Rate Pulse Rate [ 50 L From Monitor] Respiratory 20 Rate Blood Pressure 137/76 173/99 O2 Sat by Pulse 97 96 91 Oximetry 04/24/21 04/24/21 04/24/21 10:00 11:00 12:00 Temperature 97.9 F Pulse Rate 66 67 Pulse Rate [ 50 L From Monitor] Respiratory 10 L 21 Rate Blood Pressure 121/71 134/79 109/58 O2 Sat by Pulse 92 98 96 Oximetry Constitutional: no acute distress, alert, other (middle aged morbidly obese male with mildly increased respiratory effort at rest on Vapotherm FIO2 100%.) Eyes: non-icteric ENT: oropharynx moist, other (BIPAP FFM) Neck: supple, no lymphadenopathy, no JVD, other (large circumference) Effort: mildly labored Ascultation: Bilateral: diminished breath sounds, rhonchi Percussion: Bilateral: not dull Cardiovascular: regular rate and rhythm Gastrointestinal: normoactive bowel sounds, soft, non-tender, non-distended (protuberant) Integumentary: normal Extremities: no cyanosis, pink and warm, pulses normal, no ischemia or petechiae, edema Neurologic: normal mental status, non-focal exam, pupils equal and round, CN II- XII normal Psychiatric: mood appropriate, affect normal CBC and BMP: 04/22/21 04:49 04/22/21 04:49 ABG, PT/INR, D-dimer: ABG ABG pH 7.480 (7.320-7.450) H 04/19/21 17:21 POC ABG pCO2 37.3 mmHg (32.0-48.0) 04/19/21 17:21 ABG pCO2 36.2 mm Hg 04/18/21 Unknown POC ABG pO2 108.6 mmHg (83-108) H 04/19/21 17:21 ABG pO2 134.6 mm Hg (80.0-90.0) H 04/18/21 Unknown POC ABG HCO3 27.2 04/19/21 17:21 ABG O2 Saturation 98.2 (0-100) 04/19/21 17:21 PT/INR, D-dimer D-Dimer 1880.44 ng/mlDDU (0-234) H 04/22/21 04:49 Abnormal lab findings: Abnormal Labs 04/16/21 04/16/21 04/17/21 21:18 21:18 16:40 WBC 3.5 L RDW Plt Count 85 L Lymph % (Auto) Moore % (Auto) Lymph # (Auto) 0.7 L Moore # (Auto) Seg Neutrophils % 74.2 H D-Dimer ABG pH POC ABG pO2 ABG pO2 ABG HCO3 ABG O2 Saturation ABG Base Excess ABG Hemoglobin ABG Oxyhemoglobin ABG Sodium ABG Chloride ABG Glucose Oxyhemoglobin Carboxyhemoglobin Sodium 132 L Chloride 93.8 L Carbon Dioxide BUN Creatinine 0.7 L Glucose 125 H POC Glucose Calcium 8.2 L Ferritin 1918.0 H AST 83 H ALT 63 H Lactate Dehydrogenase C-Reactive Protein Albumin 3.7 L Arterial Blood Glucose Arterial Blood Ionized Calcium Coronavirus (PCR) 04/17/21 04/17/21 04/17/21 16:40 16:40 16:40 WBC RDW Plt Count Lymph % (Auto) Moore % (Auto) Lymph # (Auto) Moore # (Auto) Seg Neutrophils % D-Dimer 306.45 H ABG pH POC ABG pO2 ABG pO2 ABG HCO3 ABG O2 Saturation ABG Base Excess ABG Hemoglobin ABG Oxyhemoglobin ABG Sodium ABG Chloride ABG Glucose Oxyhemoglobin Carboxyhemoglobin Sodium 135 L Chloride 96.2 L Carbon Dioxide BUN Creatinine Glucose 155 H POC Glucose Calcium Ferritin AST 72 H ALT 68 H Lactate Dehydrogenase 505 H C-Reactive Protein 16.30 H Albumin 3.5 L Arterial Blood Glucose Arterial Blood Ionized Calcium Coronavirus (PCR) 1204/17/21 04/18/21 18:45 Unknown 03:53 WBC RDW 13.1 L Plt Count 115 L Lymph % (Auto) 13.0 L Moore % (Auto) 8.7 H Lymph # (Auto) 1.0 L Moore # (Auto) Seg Neutrophils % 78.2 H D-Dimer ABG pH POC ABG pO2 ABG pO2 56.8 L ABG HCO3 27.4 H ABG O2 Saturation 90.8 L ABG Base Excess 3.1 H ABG Hemoglobin 11.3 L 13.7 L ABG Oxyhemoglobin ABG Sodium ABG Chloride ABG Glucose Oxyhemoglobin 89.4 L Carboxyhemoglobin Sodium Chloride Carbon Dioxide BUN Creatinine Glucose POC Glucose Calcium Ferritin AST ALT Lactate Dehydrogenase C-Reactive Protein Albumin Arterial Blood Glucose Arterial Blood Ionized Calcium Coronavirus (PCR) 04/18/21 04/18/21 04/18/21 03:53 08:02 Unknown WBC RDW Plt Count Lymph % (Auto) Moore % (Auto) Lymph # (Auto) Moore # (Auto) Seg Neutrophils % D-Dimer ABG pH POC ABG pO2 ABG pO2 64.3 L 134.6 H ABG HCO3 26.9 H ABG O2 Saturation 93.6 L ABG Base Excess -3.3 L ABG Hemoglobin 11.9 L ABG Oxyhemoglobin ABG Sodium ABG Chloride ABG Glucose Oxyhemoglobin 92.3 L Carboxyhemoglobin Sodium 135 L Chloride 95.9 L Carbon Dioxide BUN Creatinine 0.7 L Glucose 149 H POC Glucose Calcium Ferritin AST 62 H ALT 59 H Lactate Dehydrogenase C-Reactive Protein Albumin 3.3 L Arterial Blood Glucose Arterial Blood Ionized Calcium Coronavirus (PCR) 04/19/21 04/19/21 04/19/21 01:37 07:28 08:44 WBC RDW Plt Count Lymph % (Auto) Moore % (Auto) Lymph # (Auto) Moore # (Auto) Seg Neutrophils % D-Dimer ABG pH POC ABG pO2 56.3 L ABG pO2 ABG HCO3 ABG O2 Saturation ABG Base Excess ABG Hemoglobin ABG Oxyhemoglobin 88.3 L ABG Sodium 132.8 L ABG Chloride 96.0 L ABG Glucose 145 H Oxyhemoglobin Carboxyhemoglobin 0.4 L Sodium Chloride 97.4 L Carbon Dioxide BUN Creatinine 0.7 L Glucose 130 H POC Glucose 135 H Calcium Ferritin AST 53 H ALT Lactate Dehydrogenase C-Reactive Protein Albumin 3.6 L Arterial Blood Glucose 145 H Arterial Blood Ionized Calcium 4.5 L Coronavirus (PCR) 04/19/21 04/19/21 04/19/21 08:44 11:30 16:53 WBC RDW 12.8 L Plt Count Lymph % (Auto) Moore % (Auto) Lymph # (Auto) Moore # (Auto) Seg Neutrophils % D-Dimer ABG pH POC ABG pO2 ABG pO2 ABG HCO3 ABG O2 Saturation ABG Base Excess ABG Hemoglobin ABG Oxyhemoglobin ABG Sodium ABG Chloride ABG Glucose Oxyhemoglobin Carboxyhemoglobin Sodium Chloride Carbon Dioxide BUN Creatinine Glucose POC Glucose 129 H 146 H Calcium Ferritin AST ALT Lactate Dehydrogenase C-Reactive Protein Albumin Arterial Blood Glucose Arterial Blood Ionized Calcium Coronavirus (PCR) 04/19/21 04/19/21 04/20/21 17:21 21:07 07:18 WBC RDW Plt Count Lymph % (Auto) Moore % (Auto) Lymph # (Auto) Moore # (Auto) Seg Neutrophils % D-Dimer ABG pH 7.480 H POC ABG pO2 108.6 H ABG pO2 ABG HCO3 ABG O2 Saturation ABG Base Excess ABG Hemoglobin ABG Oxyhemoglobin ABG Sodium 134.1 L ABG Chloride 97.0 L ABG Glucose 167 H Oxyhemoglobin Carboxyhemoglobin 0.4 L Sodium Chloride Carbon Dioxide BUN Creatinine Glucose POC Glucose 152 H 128 H Calcium Ferritin AST ALT Lactate Dehydrogenase C-Reactive Protein Albumin Arterial Blood Glucose 167 H Arterial Blood Ionized Calcium Coronavirus (PCR) 04/20/21 04/20/21 04/20/21 11:08 11:08 11:08 WBC RDW Plt Count Lymph % (Auto) Moore % (Auto) Lymph # (Auto) Moore # (Auto) Seg Neutrophils % D-Dimer 1082.55 H ABG pH POC ABG pO2 ABG pO2 ABG HCO3 ABG O2 Saturation ABG Base Excess ABG Hemoglobin ABG Oxyhemoglobin ABG Sodium ABG Chloride ABG Glucose Oxyhemoglobin Carboxyhemoglobin Sodium Chloride Carbon Dioxide BUN 26 H Creatinine Glucose 121 H POC Glucose Calcium Ferritin 1389.0 H AST 46 H ALT Lactate Dehydrogenase 647 H C-Reactive Protein 5.50 H Albumin 3.5 L Arterial Blood Glucose Arterial Blood Ionized Calcium Coronavirus (PCR) 04/20/21 04/20/21 04/20/21 11:08 16:04 21:10 WBC RDW 12.9 L Plt Count Lymph % (Auto) Moore % (Auto) 14.0 H Lymph # (Auto) Moore # (Auto) 0.9 H Seg Neutrophils % D-Dimer ABG pH POC ABG pO2 ABG pO2 ABG HCO3 ABG O2 Saturation ABG Base Excess ABG Hemoglobin ABG Oxyhemoglobin ABG Sodium ABG Chloride ABG Glucose Oxyhemoglobin Carboxyhemoglobin Sodium Chloride Carbon Dioxide BUN Creatinine Glucose POC Glucose 159 H 149 H Calcium Ferritin AST ALT Lactate Dehydrogenase C-Reactive Protein Albumin Arterial Blood Glucose Arterial Blood Ionized Calcium Coronavirus (PCR) 04/20/21 04/21/21 04/21/21 Unknown 11:34 11:34 WBC RDW 13.1 L Plt Count Lymph % (Auto) Moore % (Auto) 13.0 H Lymph # (Auto) Moore # (Auto) 1.2 H Seg Neutrophils % 70.4 H D-Dimer ABG pH POC ABG pO2 ABG pO2 ABG HCO3 ABG O2 Saturation ABG Base Excess ABG Hemoglobin ABG Oxyhemoglobin ABG Sodium ABG Chloride ABG Glucose Oxyhemoglobin Carboxyhemoglobin Sodium Chloride Carbon Dioxide BUN 27 H Creatinine Glucose 107 H POC Glucose Calcium Ferritin AST 46 H ALT Lactate Dehydrogenase C-Reactive Protein Albumin 3.4 L Arterial Blood Glucose Arterial Blood Ionized Calcium Coronavirus (PCR) Positive A 04/21/21 04/21/21 04/22/21 17:00 22:05 04:49 WBC RDW Plt Count Lymph % (Auto) 12.2 L Moore % (Auto) 10.7 H Lymph # (Auto) Moore # (Auto) 1.1 H Seg Neutrophils % 76.6 H D-Dimer ABG pH POC ABG pO2 ABG pO2 ABG HCO3 ABG O2 Saturation ABG Base Excess ABG Hemoglobin ABG Oxyhemoglobin ABG Sodium ABG Chloride ABG Glucose Oxyhemoglobin Carboxyhemoglobin Sodium Chloride Carbon Dioxide BUN Creatinine Glucose POC Glucose 138 H 133 H Calcium Ferritin AST ALT Lactate Dehydrogenase C-Reactive Protein Albumin Arterial Blood Glucose Arterial Blood Ionized Calcium Coronavirus (PCR) 04/22/21 04/22/21 04/22/21 04:49 04:49 04:49 WBC RDW Plt Count Lymph % (Auto) Moore % (Auto) Lymph # (Auto) Moore # (Auto) Seg Neutrophils % D-Dimer 1880.44 H ABG pH POC ABG pO2 ABG pO2 ABG HCO3 ABG O2 Saturation ABG Base Excess ABG Hemoglobin ABG Oxyhemoglobin ABG Sodium ABG Chloride ABG Glucose Oxyhemoglobin Carboxyhemoglobin Sodium Chloride 108.6 H Carbon Dioxide 21 L D BUN 28 H Creatinine 0.6 L Glucose 115 H POC Glucose Calcium Ferritin 1185.0 H AST 50 H ALT Lactate Dehydrogenase 759 H C-Reactive Protein 1.60 H Albumin 3.1 L Arterial Blood Glucose Arterial Blood Ionized Calcium Coronavirus (PCR) 04/22/21 04/22/21 04/23/21 16:17 22:08 21:14 WBC RDW Plt Count Lymph % (Auto) Moore % (Auto) Lymph # (Auto) Moore # (Auto) Seg Neutrophils % D-Dimer ABG pH POC ABG pO2 ABG pO2 ABG HCO3 ABG O2 Saturation ABG Base Excess ABG Hemoglobin ABG Oxyhemoglobin ABG Sodium ABG Chloride ABG Glucose Oxyhemoglobin Carboxyhemoglobin Sodium Chloride Carbon Dioxide BUN Creatinine Glucose POC Glucose 158 H 134 H 159 H Calcium Ferritin AST ALT Lactate Dehydrogenase C-Reactive Protein Albumin Arterial Blood Glucose Arterial Blood Ionized Calcium Coronavirus (PCR) Chest x-ray: pending Allied health notes reviewed: nursing
--- NOTE | 2021-04-24 15:23 | Progress Note ---
Assessment and Plan Cultures: COVID-19 PCR: Positive outpatient. A/P: 51-year-old man past medical history morbid obesity, hypertension, CAD #Severe COVID-19 pneumonia: Patient presented with a week of symptoms, chest CT with diffuse groundglass opacities, admission O2 sats decreased on room air. Inflammatory markers elevated #Acute hypoxemic respiratory failure: Likely secondary to COVID-19 infection. On high flow nasal cannula. #Morbid obesity: Associated with worse COVID-19 outcomes Recommendations: -Dexamethasone 6 mg IV/PO daily for 10 days -Completed remdesivir. -Obtain q48-72h inflammatory markers - ferritin, Ddimer, CRP, LDH -Received Tocilizumab 04/19/2021 -Anticoagulation per hospital protocol -Proning as able Thank you for the consult, we will continue to follow. Abdiel Wilkerson MD [facility], [place], [facility] ([facility]) O: [phone] F: [phone] Subjective Date of service: 04/24/21 Principal diagnosis: AHRF; ARDS; ANKUSH; COVID-19 infxn; Pneumonia; Morbid Obesity Interval history: Afebrile, normal white count. On high flow nasal cannula. Objective - Exam Narrative Exam: Physical exam deferred to reduce risk of transmission of COVID-19. Please refer to primary team's note. - Constitutional Vitals: Vital Signs Temp Pulse Resp BP Pulse Ox 97.9 F 50 L 20 109/58 95 04/24/21 12:00 04/24/21 12:00 04/24/21 12:00 04/24/21 12:00 04/24/21 12:00 Temperature -Last 24 Hours Temperature 97.9 F Temperature 98.0 F Temperature 98.3 F Temperature 98.3 F Temperature 98.5 F Temperature 98.2 F - Labs CBC & Chem 7: 04/22/21 04:49 04/22/21 04:49 Labs: Abnormal lab results 04/23/21 Range/Units 21:14 POC Glucose 159 H (70-105) mg/dL
--- NOTE | 2021-04-24 16:21 | Vascular Lab Report ---
DUPLEX DOPPLER LOWER EXTREMITY VEINS, BILATERAL INDICATION / CLINICAL INFORMATION: Elevated D dimer.. TECHNIQUE: Duplex doppler imaging was performed through the veins of both lower extremities using larisa ous compression and other maneuvers. COMPARISON: Bilateral lower extremity venous Doppler 04/17/2021. FINDINGS: RIGHT COMMON FEMORAL VEIN: Negative. RIGHT FEMORAL VEIN: Negative. RIGHT POPLITEAL VEIN: Negative. RIGHT CALF VEINS: Negative. LEFT COMMON FEMORAL VEIN: Negative. LEFT FEMORAL VEIN: Negative. LEFT POPLITEAL VEIN: Negative. LEFT CALF VEINS: Negative. ADDITIONAL FINDINGS: None. IMPRESSION: 1. No sonographic evidence for DVT in either lower extremity. Scribed by: Kinga Fonseca RDMS, RVT Scribed: 04/24/2021 1:01 PM I have reviewed the images, agree with this report, and edited this report as needed. Signer Name: Celestino Douglas MD Signed: 04/24/2021 4:17 PM Workstation Name: [id number]
[2021-04-24] MEDS: ALPRAZolam 0.25 MG TAB PO SCH (21:20)
[2021-04-25] MEDS: HEPARIN 5,000 UNIT/1 ML VIAL SUB-Q SCH ×3 (05:57→21:53)
[2021-04-25] MEDS: FAMOTIDINE 20 MG TAB PO SCH ×2 (09:08→21:53)
[2021-04-25] MEDS: ZINC SULFATE 220 MG CAP PO SCH ×2 (09:08→21:53)
[2021-04-25] MEDS: dexAMETHasone 4 MG/ML VIAL IV SCH (09:08)
[2021-04-25] MEDS: BENZONATATE 100 MG CAP PO SCH ×3 (09:08→21:53)
[2021-04-25] MEDS: GABAPENTIN 300 MG CAP PO SCH ×3 (09:08→21:53)
[2021-04-25] MEDS: ASCORBIC ACID 500 MG TAB PO SCH ×2 (09:08→21:53)
--- NOTE | 2021-04-25 11:47 | Progress Note ---
Assessment and Plan Assessment and plan: 51-year-old male with history of morbid obesity, hypertension, migraine, coronary osteoarthritis and GERD and headache was brought to the emergency room because of progressive shortness of breath. Patient has history of Covid and he was admitted last week to the hospital. He states he was sent home with oxygen however he is needed 4 L of oxygen and his shortness of breath has gotten worse when he walks his oxygen drops down to the mid 80s. Patient stated that he came into contact with an individual who had tested positive for COVID-19 viral infection, but he admits that he has been fully vaccinated against COVID-19 viral infection. In the emergency room patient CT scan of the chest showed sc attered groundglass opacities at the bilateral lung suggesting atypical infectious process. Acute hypoxic respiratory failure Severe COVID-19 pneumonia Morbid obesity 04/19/21:clinically the patient appears to be in no distress despite being on 100% fio2 bipap mask. However, ABG data looks worse, Po2: 56.3. CXR demonstrates worsened pulmonary interstitial infiltrates. Discussed case with Dr. Lagunas. Low threshold for intubation should he worsen. Patient was advised on my encounter to maintain bipap mask and not remove it. Continue therapy with decadron, remdesivir. Dc abx due to low procal. Actemra ordered. Will follow ID recs. Consult PT to continue mobilizing patient. Encouraged patient to do so in presence of care staff 04/20/2021: Remains bipap dependent. No acute changes in respiratory status. Unfortunately he is low threshold for intubation. Will follow pulmonology/ID recommendations. 04/21/2021: Remains bipap dependent. Currenlty 100%. No changes overnight. Will follow pulm/ID recs. 04/22/2021. Patient currently requiring high flow nasal cannula with 40 L O2 FiO2 of 100%. Continue dexamethasone 6 mg IV for total of 10 days with remdesivir IV x5 days. Continue to follow inflammatory markers of ferritin, D-dimer, CRP and LDH. Patient is s/p Tocilizumab. Prone positioning as able. 04/23/2021: Patient currently requiring high flow nasal cannula with 40 L O2 FiO2 of 100% and BiPAP at night. Continue dexamethasone 6 mg IV for total of 10 days with remdesivir IV x5 days. Continue to follow inflammatory markers of ferritin, D-dimer, CRP and LDH. Patient is s/p Tocilizumab. Prone positioning as able. ID and pulmonary following. 04/24/2021: Patient currently requiring high flow nasal cannula with 40 L O2 FiO2 of 90% and BiPAP at night. Continue dexamethasone 6 mg IV for total of 10 days with remdesivir IV x5 days. Continue to follow inflammatory markers of ferritin, D-dimer, CRP and LDH. Patient is s/p Tocilizumab. Prone positioning as able. ID and pulmonary following. 04/25/2021. Patient currently requiring high flow nasal cannula with 40 L O2 FiO2 of 70% and BiPAP at night. Continue dexamethasone 6 mg IV for total of 10 days with remdesivir IV x5 days. Continue to follow inflammatory markers of ferritin, D-dimer, CRP and LDH. Patient is s/p Tocilizumab. Prone positioning as able. ID and pulmonary following. History Interval history: No new issues overnight Hospitalist Physical - Constitutional Vitals: Temp Pulse Resp BP Pulse Ox 97.5 F L 57 L 13 130/82 97 04/25/21 07:54 04/25/21 06:00 04/25/21 06:00 04/25/21 06:00 04/25/21 07:43 General appearance: Present: no acute distress, obese - EENT Eyes: Present: PERRL, EOM intact ENT: hearing intact, clear oral mucosa, dentition normal - Neck Neck: Present: supple, normal ROM - Respiratory Respiratory effort: normal Respiratory: bilateral: CTA - Cardiovascular Rhythm: regular Heart Sounds: Present: S1 & S2. Absent: gallop, rub - Extremities Extremities: no ischemia, No edema, Full ROM - Abdominal General gastrointestinal: soft, non-tender, non-distended, normal bowel sounds - Integumentary Integumentary: Present: clear, warm, dry - Neurologic Neurologic: CNII-XII intact, moves all extremities Results - Labs CBC & Chem 7: 04/22/21 04:49 04/22/21 04:49 Labs: Laboratory Last Values WBC 10.0 K/mm3 (4.5-11.0) 04/22/21 04:49 RBC 4.74 M/mm3 (3.65-5.03) 04/22/21 04:49 Hgb 13.7 gm/dl (11.8-15.2) 04/22/21 04:49 Hct 42.7 % (35.5-45.6) 04/22/21 04:49 MCV 90 fl (84-94) 04/22/21 04:49 MCH 29 pg (28-32) 04/22/21 04:49 MCHC 32 % (32-34) 04/22/21 04:49 RDW 13.2 % (13.2-15.2) 04/22/21 04:49 Plt Count 179 K/mm3 (140-440) 04/22/21 04:49 Lymph % (Auto) 12.2 % (13.4-35.0) L 04/22/21 04:49 [place] % (Auto) 10.7 % (0.0-7.3) H 04/22/21 04:49 Eos % (Auto) 0.4 % (0.0-4.3) 04/22/21 04:49 Baso % (Auto) 0.1 % (0.0-1.8) 04/22/21 04:49 Lymph # (Auto) 1.2 K/mm3 (1.2-5.4) 04/22/21 04:49 [place] # (Auto) 1.1 K/mm3 (0.0-0.8) H 04/22/21 04:49 Eos # (Auto) 0.0 K/mm3 (0.0-0.4) 04/22/21 04:49 Baso # (Auto) 0.0 K/mm3 (0.0-0.1) 04/22/21 04:49 Seg Neutrophils % 76.6 % (40.0-70.0) H 04/22/21 04:49 Seg Neutrophils # 7.7 K/mm3 (1.8-7.7) 04/22/21 04:49 D-Dimer 1880.44 ng/mlDDU (0-234) H 04/22/21 04:49 ABG pH 7.480 (7.320-7.450) H 04/19/21 17:21 POC ABG pCO2 37.3 mmHg (32.0-48.0) 04/19/21 17:21 ABG pCO2 36.2 mm Hg 04/18/21 Unknown POC ABG pO2 108.6 mmHg (83-108) H 04/19/21 17: ABG pO2 134.6 mm Hg (80.0-90.0) H 04/18/21 Unknown POC ABG HCO3 27.2 04/19/21 17: ABG HCO3 21.0 mmol/L (20.0-26.0) 04/18/21 Unknown ABG O2 Saturation 98.2 (0-100) 04/19/21 17: ABG O2 Content 22.0 (0.0-44) 04/18/21 Unknown POC ABG Base Excess 3.7 04/19/21 17: ABG Base Excess -3.3 mmol/L (-2.0-3.0) L 04/18/21 Unknown ABG Hemoglobin 14.0 (12.0-17.5) 04/19/21 17: ABG Oxyhemoglobin 97.5 (94-98) 04/19/21 17: ABG Carboxyhemoglobin 0.7 % (0.0-5.0) 04/18/21 Unknown ABG Methemoglobin 0.3 (0.0-1.5) 04/19/21 17: ABG Sodium 134.1 mmol/L (136.0-145.0) L 04/19/21 17: ABG Potassium 4.4 mmol/L (3.40-4.50) 04/19/21 17: ABG Chloride 97.0 mmol/L (98-107) L 04/19/21 17: ABG Glucose 167 mg/dL (65-95) H 04/19/21 17: Oxyhemoglobin 97.2 % (95.0-99.0) 04/18/21 Unknown Carboxyhemoglobin 0.4 (0.5-1.5) L 04/19/21 17:21 FiO2 100 % 04/18/21 Unknown FiO2 % 100 04/19/21 17: Sodium 143 mmol/L (137-145) 04/22/21 04:49 Potassium 4.8 mmol/L (3.6-5.0) 04/22/21 04:49 Chloride 108.6 mmol/L (98-107) H 04/22/21 04:49 Carbon Dioxide 21 mmol/L (22-30) L D 04/22/21 04:49 Anion Gap 18 mmol/L 04/22/21 04:49 BUN 28 mg/dL (9-20) H 04/22/21 04:49 Creatinine 0.6 mg/dL (0.8-1.3) L 04/22/21 04:49 Estimated GFR > 60 ml/min 04/22/21 04:49 BUN/Creatinine Ratio 47 % 04/22/21 04:49 Glucose 115 mg/dL (75-100) H 04/22/21 04:49 POC Glucose 126 mg/dL (70-105) H 04/25/21 11:33 Lactic Acid 1.10 mmol/L (0.7-2.0) 04/16/21 21:18 Calcium 8.4 mg/dL (8.4-10.2) 04/22/21 04:49 Ferritin 1185.0 ng/mL (30.0-300.0) H 04/22/21 04:49 Total Bilirubin 0.80 mg/dL (0.1-1.2) 04/22/21 04:49 AST 50 units/L (5-40) H 04/22/21 04:49 ALT 53 units/L (7-56) 04/22/21 04:49 Alkaline Phosphatase 70 units/L (35-129) 04/22/21 04:49 Lactate Dehydrogenase 759 units/L (91-180) H 04/22/21 04:49 C-Reactive Protein 1.60 mg/dL (0.00-1.30) H 04/22/21 04:49 NT-Pro-B Natriuret Pep 79.47 pg/mL (0-900) 04/17/21 16:40 Total Protein 6.4 g/dL (6.3-8.2) 04/22/21 04:49 Albumin 3.1 g/dL (3.9-5) L 04/22/21 04:49 Albumin/Globulin Ratio 0.9 % 04/22/21 04:49 Procalcitonin 0.15 ng/mL (<0.15) 04/17/21 16:40 Arterial Blood Glucose 167 mg/dL (65-95) H 04/19/21 17:21 Arterial Blood Ionized Calcium 4.6 mg/dL (4.6-5.3) 04/19/21 17:21 Coronavirus (PCR) Positive (Negative) A 04/20/21 Unknown Martin/IV: Voiding Method Urinal Active Medications - Current Medications Current Medications: Generic Name Dose Route Start Last Admin Trade Name Freq PRN Reason Stop Dose Admin Acetaminophen 650 mg 04/17/21 01:45 Acetaminophen 325 Mg Tab PO Q4H PRN Pain MILD(1-3)/Fever >100.5/ALEXANDER Albuterol 2.5 mg 04/17/21 01:45 Albuterol 2.5 Mg/3 Ml Nebu IH Q4HRT PRN Shortness Of Breath Alprazolam 0.25 mg 04/17/21 22:00 04/24/21 21:20 Alprazolam 0.25 Mg Tab PO 0.25 mg QHS DEIRDRE Administration Ascorbic Acid 1,000 mg 04/17/21 02:00 04/25/21 09:08 Ascorbic Acid 500 Mg Tab PO 1,000 mg Q12HR DEIRDRE Administration Benzonatate 100 mg 04/17/21 06:00 04/25/21 09:08 Benzonatate 100 Mg Cap PO 100 mg Q8HR DEIRDRE Administration Cyclobenzaprine HCl 10 mg 04/17/21 01:49 04/18/21 09:28 Cyclobenzaprine 10 Mg Tab PO 10 mg TID PRN Administration Spasms Famotidine 20 mg 04/25/21 10:00 04/25/21 09:08 Famotidine 20 Mg Tab PO 20 mg BID DEIRDRE Administration Gabapentin 300 mg 04/17/21 08:00 04/25/21 09:08 Gabapentin 300 Mg Cap PO 300 mg TID DEIRDRE Administration Heparin Sodium (Porcine) 5,000 unit 04/17/21 06:00 04/25/21 05:57 Heparin 5,000 Unit/1 Ml Vial SUB-Q 5,000 unit Q8HR DEIRDRE Administration Hydralazine HCl 10 mg 04/17/21 02:00 04/22/21 19:16 Hydralazine 20 Mg/1 Ml Inj IV 10 mg Q6H PRN Administration Blood Pressure Hydromorphone HCl 0.5 mg 04/17/21 01:45 04/18/21 09:27 Hydromorphone 1 Mg/1 Ml Inj IV 0.5 mg Q3H PRN Administration Pain , Severe (7-10) Lorazepam 0.5 mg 04/21/21 08:44 04/21/21 22:18 Lorazepam 2 Mg/Ml Vial IV 0.5 mg Q4H PRN Administration Anxiety Morphine Sulfate 2 mg 04/17/21 01:45 04/18/21 16:38 Morphine 2 Mg/1 Ml Inj IV 2 mg Q4H PRN Administration Pain, Moderate (4-6) Ondansetron HCl 4 mg 04/17/21 01:45 04/18/21 07:48 Ondansetron 4 Mg/2 Ml Inj IV 4 mg Q8H PRN Administration Nausea And Vomiting Sodium Chloride 10 ml 04/17/21 10:00 04/25/21 09:07 Sodium Chloride 0.9% 10 Ml Flush Syringe IV 10 ml BID DEIRDRE Administration Sodium Chloride 10 ml 04/17/21 01:45 Sodium Chloride 0.9% 10 Ml Flush Syringe IV PRN PRN LINE FLUSH Zinc Sulfate 220 mg 04/17/21 22:00 04/25/21 09:08 Zinc Sulfate 220 Mg Cap PO 220 mg BID DEIRDRE Administration Nutrition/Malnutrition Assess - Dietary Evaluation Nutrition/Malnutrition Findings: Nutrition Notes Start: 04/24/21 17:14 Freq: Status: Active Protocol: Document 04/24/21 17:14 TEDDY (Rec: 04/24/21 17:41 TEDDY [email or web address]) Nutrition Notes Need for Assessment generated from: LOS Initial or Follow up Assessment Current Diagnosis Coronary Artery Disease, Hypertension,Respiratory Failure Other Pertinent Diagnosis COVID-19, Pneumonia, AHRF, ARDS, ANKUSH. Current Diet Cardiac Diet (since B 04/17). Labs/Tests 04/22: Cl 108.6, CO2 21, BUN 28, Crea 0.6, Glu 115. Pertinent Medications 04/24: Vit C, ZnSO4, others nutritionally unremarkable. Height 5 ft 8 in Weight 161 kg [place] Body Weight (kg) 70.00 BMI 53.9 Intake Prior to Admission Good Weight change and time frame None reported at admission. Weight Status Morbidly Obese Subjective/Other Information RD consult for LOS assessment. Pt's PO intake of meals is Good (75-100%), according to ADL notes. Percent of energy/protein needs met: Prescribed Cardiac Diet provides for energy/protein needs (2,230 Kcal/85 g) during LOS. Burn Absent Trauma Absent GI Symptoms None Food Allergy No Skin Integrity/Comment Clear, warm, dry. Current % PO Good (75-100%) Minimum of two criteria No Is patient on ventilator? No Is Patient Ambulatory and/or Out of Bed Yes REE-(Alfalfa-St. Jeor-ambulatory/OOB) [ 3164.850 [id number]] Kcal/Kg value to use for calculation 9 Approximate Energy Requirements Using 1449 kcal/Kg Calculation Used for Recommendations Kcal/kg Additional Notes Protein: 0.8-1 g/Kg; 93-116 g/ day. Fluids: 1 ml/Kcal, or as per MD. Nutrition Intervention Change Diet Order: Continue Cardiac Diet. Revisit per MD consult or patient Sign Off request: Additional Comments Continue monitoring food tolerance, %PO intake of meals , and BM.
--- NOTE | 2021-04-25 14:24 | Progress Note ---
Assessment and Plan Acute Hypoxemic Respiratory Failure ARDS ANKUSH COVID-19 infection Bilateral pneumonia Leukopenia Morbid obesity Thrombocytopenia Elevated serum transaminases - continue BIPAP qhs with prn daytime use - continue care as below otherwise; - dopplers negative for VTE - continue to wean supplemental oxygen for target O2 sat's > 90% acutely - aspiration precautions - continue bronchodilators with pulmonary hygiene per RT - avoid nephrotoxins, renally dose all medications - avoid benzodiazepine's, reduce the possibility of delirium - complete AB's per ID rec's - continue accuchecks with glycemic control per SSI (While critically ill target blood glucose of 140-180 mg/dL; avoid hypoglycemia) - prn analgesia per pain score - Maintenance of sleep-wake cycle, avoid delirium - G.I. & VTE prophylaxis - PT/OT/ROM exercises - continue mobility protocols for pressure ulcer prophylaxis - Monitor hemodynamics closely - continue other care per attending / other consultants - discharge planning ongoing concurrently COVID SPECIFIC INTERVENTIONS - Remdesivir as per ID/Pulmonary developed protocols (received) - continue systemic steroids for severe COVID-19 infection empirically (Decadron) - follow repeat COVID tests results - zinc and vitamin C supplementation - Monitor inflammatory markers per facility protocol - ferritin, Ddimer, CRP - therapeutic anticoagulation per system Protocol based on d-dimer and clinical considerations (VTE prophylaxis) - Continue contact and airborne isolation .... Re-evaluate in am & prn CONDITION: CRITICAL PROGNOSIS: GUARDED CODE STATUS: FULL CODE The high probability of a clinically significant, sudden or life-threatening deterioration of the [respiratory, ID & cardiovascular] system(s) required my full and direct attention, intervention and personal management. The aggregate critical care time was [31] minutes without overlap. Time includes spent on; [x] Data Review and interpretation [x] Patient assessment and monitoring of vital signs [x] Documentation [x] Medication orders and management Subjective Date of service: 04/25/21 Principal diagnosis: AHRF; ARDS; ANKUSH; COVID-19 infxn; Pneumonia; Morbid Obesity Interval history: Patient is seen today for: Acute Hypoxemic Respiratory Failure; ARDS; ANKUSH; COVID-19 infxn; Pneumonia Seen and examined at bedside; 24hour events reviewed; nursing and respiratory care staff consulted; no adverse overnight events reported to me; resting in bed; doing better but remains on supplemental oxygen via HFNC but FiO2 down to 80%; No N/V/F/C Objective Vital Signs - 12hr 04/25/21 04/25/21 04/25/21 03:01 03:18 04:00 Temperature 97.2 F L Pulse Rate 54 L 77 Pulse Rate [ 54 L From Monitor] Respiratory 14 17 15 Rate Blood Pressure 127/77 133/80 O2 Sat by Pulse 90 99 94 Oximetry 04/25/21 04/25/21 04/25/21 05:00 06:00 07:00 Temperature Pulse Rate 60 57 L 59 L Pulse Rate [ From Monitor] Respiratory 24 13 20 Rate Blood Pressure 121/77 130/82 130/73 O2 Sat by Pulse 92 94 100 Oximetry 04/25/21 04/25/21 04/25/21 07:43 07:54 08:00 Temperature 97.5 F L Pulse Rate 68 Pulse Rate [ From Monitor] Respiratory 20 Rate Blood Pressure 117/72 O2 Sat by Pulse 97 90 Oximetry 04/25/21 04/25/21 04/25/21 09:00 10:01 11:00 Temperature Pulse Rate 90 68 89 Pulse Rate [ From Monitor] Respiratory 20 18 13 Rate Blood Pressure 117/80 109/75 129/72 O2 Sat by Pulse 87 94 94 Oximetry 04/25/21 04/25/21 04/25/21 11:58 12:00 13:00 Temperature 98.0 F Pulse Rate 103 H 98 H Pulse Rate [ From Monitor] Respiratory 34 H 20 Rate Blood Pressure 131/75 120/96 O2 Sat by Pulse 92 94 Oximetry Constitutional: no acute distress, alert, other (middle aged morbidly obese male with mildly increased respiratory effort at rest on Vapotherm FIO2 100%.) Eyes: non-icteric ENT: oropharynx moist Neck: supple, no lymphadenopathy, no JVD, other (large circumference) Effort: mildly labored Ascultation: Bilateral: diminished breath sounds, rhonchi Percussion: Bilateral: not dull Cardiovascular: regular rate and rhythm Gastrointestinal: normoactive bowel sounds, soft, non-tender, non-distended (protuberant) Integumentary: normal Extremities: no cyanosis, pink and warm, pulses normal, no ischemia or petechiae, edema Neurologic: normal mental status, non-focal exam, pupils equal and round, CN II- XII normal Psychiatric: mood appropriate, affect normal CBC and BMP: 04/22/21 04:49 04/22/21 04:49 ABG, PT/INR, D-dimer: ABG ABG pH 7.480 (7.320-7.450) H 04/19/21 17:21 POC ABG pCO2 37.3 mmHg (32.0-48.0) 04/19/21 17: ABG pCO2 36.2 mm Hg 04/18/21 Unknown POC ABG pO2 108.6 mmHg (83-108) H 04/19/21 17: ABG pO2 134.6 mm Hg (80.0-90.0) H 04/18/21 Unknown POC ABG HCO3 27.2 04/19/21 17: ABG O2 Saturation 98.2 (0-100) 04/19/21 17:21 PT/INR, D-dimer D-Dimer 1880.44 ng/mlDDU (0-234) H 04/22/21 04:49 Abnormal lab findings: Abnormal Labs 04/16/21 04/16/21 04/17/21 21:18 21:18 16:40 WBC 3.5 L RDW Plt Count 85 L Lymph % (Auto) Gaines % (Auto) Lymph # (Auto) 0.7 L Gaines # (Auto) Seg Neutrophils % 74.2 H D-Dimer ABG pH POC ABG pO2 ABG pO2 ABG HCO3 ABG O2 Saturation ABG Base Excess ABG Hemoglobin ABG Oxyhemoglobin ABG Sodium ABG Chloride ABG Glucose Oxyhemoglobin Carboxyhemoglobin Sodium 132 L Chloride 93.8 L Carbon Dioxide BUN Creatinine 0.7 L Glucose 125 H POC Glucose Calcium 8.2 L Ferritin 1918.0 H AST 83 H ALT 63 H Lactate Dehydrogenase C-Reactive Protein Albumin 3.7 L Arterial Blood Glucose Arterial Blood Ionized Calcium Coronavirus (PCR) 04/17/21 04/17/21 04/17/21 16:40 16:40 16:40 WBC RDW Plt Count Lymph % (Auto) Gaines % (Auto) Lymph # (Auto) Gaines # (Auto) Seg Neutrophils % D-Dimer 306.45 H ABG pH POC ABG pO2 ABG pO2 ABG HCO3 ABG O2 Saturation ABG Base Excess ABG Hemoglobin ABG Oxyhemoglobin ABG Sodium ABG Chloride ABG Glucose Oxyhemoglobin Carboxyhemoglobin Sodium 135 L Chloride 96.2 L Carbon Dioxide BUN Creatinine Glucose 155 H POC Glucose Calcium Ferritin AST 72 H ALT 68 H Lactate Dehydrogenase 505 H C-Reactive Protein 16.30 H Albumin 3.5 L Arterial Blood Glucose Arterial Blood Ionized Calcium Coronavirus (PCR) 04/17/21 04/17/21 04/18/21 18:45 Unknown 03:53 WBC RDW 13.1 L Plt Count 115 L Lymph % (Auto) 13.0 L Gaines % (Auto) 8.7 H Lymph # (Auto) 1.0 L Gaines # (Auto) Seg Neutrophils % 78.2 H D-Dimer ABG pH POC ABG pO2 ABG pO2 56.8 L ABG HCO3 27.4 H ABG O2 Saturation 90.8 L ABG Base Excess 3.1 H ABG Hemoglobin 11.3 L 13.7 L ABG Oxyhemoglobin ABG Sodium ABG Chloride ABG Glucose Oxyhemoglobin 89.4 L Carboxyhemoglobin Sodium Chloride Carbon Dioxide BUN Creatinine Glucose POC Glucose Calcium Ferritin AST ALT Lactate Dehydrogenase C-Reactive Protein Albumin Arterial Blood Glucose Arterial Blood Ionized Calcium Coronavirus (PCR) 04/18/21 04/18/21 04/18/21 03:53 08:02 Unknown WBC RDW Plt Count Lymph % (Auto) Gaines % (Auto) Lymph # (Auto) Gaines # (Auto) Seg Neutrophils % D-Dimer ABG pH POC ABG pO2 ABG pO2 64.3 L 134.6 H ABG HCO3 26.9 H ABG O2 Saturation 93.6 L ABG Base Excess -3.3 L ABG Hemoglobin 11.9 L ABG Oxyhemoglobin ABG Sodium ABG Chloride ABG Glucose Oxyhemoglobin 92.3 L Carboxyhemoglobin Sodium 135 L Chloride 95.9 L Carbon Dioxide BUN Creatinine 0.7 L Glucose 149 H POC Glucose Calcium Ferritin AST 62 H ALT 59 H Lactate Dehydrogenase C-Reactive Protein Albumin 3.3 L Arterial Blood Glucose Arterial Blood Ionized Calcium Coronavirus (PCR) 04/19/21 04/19/21 04/19/21 01:37 07:28 08:44 WBC RDW Plt Count Lymph % (Auto) Gaines % (Auto) Lymph # (Auto) Gaines # (Auto) Seg Neutrophils % D-Dimer ABG pH POC ABG pO2 56.3 L ABG pO2 ABG HCO3 ABG O2 Saturation ABG Base Excess ABG Hemoglobin ABG Oxyhemoglobin 88.3 L ABG Sodium 132.8 L ABG Chloride 96.0 L ABG Glucose 145 H Oxyhemoglobin Carboxyhemoglobin 0.4 L Sodium Chloride 97.4 L Carbon Dioxide BUN Creatinine 0.7 L Glucose 130 H POC Glucose 135 H Calcium Ferritin AST 53 H ALT Lactate Dehydrogenase C-Reactive Protein Albumin 3.6 L Arterial Blood Glucose 145 H Arterial Blood Ionized Calcium 4.5 L Coronavirus (PCR) 04/19/21 04/19/21 04/19/21 08:44 11:30 16:53 WBC RDW 12.8 L Plt Count Lymph % (Auto) Gaines % (Auto) Lymph # (Auto) Gaines # (Auto) Seg Neutrophils % D-Dimer ABG pH POC ABG pO2 ABG pO2 ABG HCO3 ABG O2 Saturation ABG Base Excess ABG Hemoglobin ABG Oxyhemoglobin ABG Sodium ABG Chloride ABG Glucose Oxyhemoglobin Carboxyhemoglobin Sodium Chloride Carbon Dioxide BUN Creatinine Glucose POC Glucose 129 H 146 H Calcium Ferritin AST ALT Lactate Dehydrogenase C-Reactive Protein Albumin Arterial Blood Glucose Arterial Blood Ionized Calcium Coronavirus (PCR) 04/19/21 04/19/21 04/20/21 17:21 21:07 07:18 WBC RDW Plt Count Lymph % (Auto) Gaines % (Auto) Lymph # (Auto) Gaines # (Auto) Seg Neutrophils % D-Dimer ABG pH 7.480 H POC ABG pO2 108.6 H ABG pO2 ABG HCO3 ABG O2 Saturation ABG Base Excess ABG Hemoglobin ABG Oxyhemoglobin ABG Sodium 134.1 L ABG Chloride 97.0 L ABG Glucose 167 H Oxyhemoglobin Carboxyhemoglobin 0.4 L Sodium Chloride Carbon Dioxide BUN Creatinine Glucose POC Glucose 152 H 128 H Calcium Ferritin AST ALT Lactate Dehydrogenase C-Reactive Protein Albumin Arterial Blood Glucose 167 H Arterial Blood Ionized Calcium Coronavirus (PCR) 04/20/21 04/20/21 04/20/21 11:08 11:08 11:08 WBC RDW Plt Count Lymph % (Auto) Gaines % (Auto) Lymph # (Auto) Gaines # (Auto) Seg Neutrophils % D-Dimer 1082.55 H ABG pH POC ABG pO2 ABG pO2 ABG HCO3 ABG O2 Saturation ABG Base Excess ABG Hemoglobin ABG Oxyhemoglobin ABG Sodium ABG Chloride ABG Glucose Oxyhemoglobin Carboxyhemoglobin Sodium Chloride Carbon Dioxide BUN 26 H Creatinine Glucose 121 H POC Glucose Calcium Ferritin 1389.0 H AST 46 H ALT Lactate Dehydrogenase 647 H C-Reactive Protein 5.50 H Albumin 3.5 L Arterial Blood Glucose Arterial Blood Ionized Calcium Coronavirus (PCR) 04/20/21 04/20/21 04/20/21 11:08 16:04 21:10 WBC RDW 12.9 L Plt Count Lymph % (Auto) Gaines % (Auto) 14.0 H Lymph # (Auto) Gaines # (Auto) 0.9 H Seg Neutrophils % D-Dimer ABG pH POC ABG pO2 ABG pO2 ABG HCO3 ABG O2 Saturation ABG Base Excess ABG Hemoglobin ABG Oxyhemoglobin ABG Sodium ABG Chloride ABG Glucose Oxyhemoglobin Carboxyhemoglobin Sodium Chloride Carbon Dioxide BUN Creatinine Glucose POC Glucose 159 H 149 H Calcium Ferritin AST ALT Lactate Dehydrogenase C-Reactive Protein Albumin Arterial Blood Glucose Arterial Blood Ionized Calcium Coronavirus (PCR) 04/20/21 04/21/21 04/21/21 Unknown 11:34 11:34 WBC RDW 13.1 L Plt Count Lymph % (Auto) Gaines % (Auto) 13.0 H Lymph # (Auto) Gaines # (Auto) 1.2 H Seg Neutrophils % 70.4 H D-Dimer ABG pH POC ABG pO2 ABG pO2 ABG HCO3 ABG O2 Saturation ABG Base Excess ABG Hemoglobin ABG Oxyhemoglobin ABG Sodium ABG Chloride ABG Glucose Oxyhemoglobin Carboxyhemoglobin Sodium Chloride Carbon Dioxide BUN 27 H Creatinine Glucose 107 H POC Glucose Calcium Ferritin AST 46 H ALT Lactate Dehydrogenase C-Reactive Protein Albumin 3.4 L Arterial Blood Glucose Arterial Blood Ionized Calcium Coronavirus (PCR) Positive A 04/21/21 04/21/21 04/22/21 17:00 22:05 04:49 WBC RDW Plt Count Lymph % (Auto) 12.2 L Gaines % (Auto) 10.7 H Lymph # (Auto) Gaines # (Auto) 1.1 H Seg Neutrophils % 76.6 H D-Dimer ABG pH POC ABG pO2 ABG pO2 ABG HCO3 ABG O2 Saturation ABG Base Excess ABG Hemoglobin ABG Oxyhemoglobin ABG Sodium ABG Chloride ABG Glucose Oxyhemoglobin Carboxyhemoglobin Sodium Chloride Carbon Dioxide BUN Creatinine Glucose POC Glucose 138 H 133 H Calcium Ferritin AST ALT Lactate Dehydrogenase C-Reactive Protein Albumin Arterial Blood Glucose Arterial Blood Ionized Calcium Coronavirus (PCR) 04/22/21 04/22/21 04/22/21 04:49 04:49 04:49 WBC RDW Plt Count Lymph % (Auto) Gaines % (Auto) Lymph # (Auto) Gaines # (Auto) Seg Neutrophils % D-Dimer 1880.44 H ABG pH POC ABG pO2 ABG pO2 ABG HCO3 ABG O2 Saturation ABG Base Excess ABG Hemoglobin ABG Oxyhemoglobin ABG Sodium ABG Chloride ABG Glucose Oxyhemoglobin Carboxyhemoglobin Sodium Chloride 108.6 H Carbon Dioxide 21 L D BUN 28 H Creatinine 0.6 L Glucose 115 H POC Glucose Calcium Ferritin 1185.0 H AST 50 H ALT Lactate Dehydrogenase 759 H C-Reactive Protein 1.60 H Albumin 3.1 L Arterial Blood Glucose Arterial Blood Ionized Calcium Coronavirus (PCR) 04/22/21 04/22/21 04/23/21 16:17 22:08 21:14 WBC RDW Plt Count Lymph % (Auto) Gaines % (Auto) Lymph # (Auto) Gaines # (Auto) Seg Neutrophils % D-Dimer ABG pH POC ABG pO2 ABG pO2 ABG HCO3 ABG O2 Saturation ABG Base Excess ABG Hemoglobin ABG Oxyhemoglobin ABG Sodium ABG Chloride ABG Glucose Oxyhemoglobin Carboxyhemoglobin Sodium Chloride Carbon Dioxide BUN Creatinine Glucose POC Glucose 158 H 134 H 159 H Calcium Ferritin AST ALT Lactate Dehydrogenase C-Reactive Protein Albumin Arterial Blood Glucose Arterial Blood Ionized Calcium Coronavirus (PCR) 04/24/21 04/25/21 21:20 11:33 WBC RDW Plt Count Lymph % (Auto) Gaines % (Auto) Lymph # (Auto) Gaines # (Auto) Seg Neutrophils % D-Dimer ABG pH POC ABG pO2 ABG pO2 ABG HCO3 ABG O2 Saturation ABG Base Excess ABG Hemoglobin ABG Oxyhemoglobin ABG Sodium ABG Chloride ABG Glucose Oxyhemoglobin Carboxyhemoglobin Sodium Chloride Carbon Dioxide BUN Creatinine Glucose POC Glucose 161 H 126 H Calcium Ferritin AST ALT Lactate Dehydrogenase C-Reactive Protein Albumin Arterial Blood Glucose Arterial Blood Ionized Calcium Coronavirus (PCR) Allied health notes reviewed: nursing
--- NOTE | 2021-04-25 16:39 | Progress Note ---
Assessment and Plan Cultures: COVID-19 PCR: Positive outpatient. A/P: 51-year-old man past medical history morbid obesity, hypertension, CAD #Severe COVID-19 pneumonia: Patient presented with a week of symptoms, chest CT with diffuse groundglass opacities, admission O2 sats decreased on room air. Inflammatory markers elevated #Acute hypoxemic respiratory failure: Likely secondary to COVID-19 infection. On high flow nasal cannula. #Morbid obesity: Associated with worse COVID-19 outcomes Recommendations: -Dexamethasone 6 mg IV/PO daily for 10 days -Completed remdesivir. -Obtain q48-72h inflammatory markers - ferritin, Ddimer, CRP, LDH -Received Tocilizumab 04/19/2021 -Anticoagulation per hospital protocol -Proning as able Thank you for the consult, we will sign off. Please call for questions. Abdiel Wilkerson MD [facility] ([facility]) O: [phone] F: [phone] Subjective Date of service: 04/25/21 Principal diagnosis: AHRF; ARDS; ANKUSH; COVID-19 infxn; Pneumonia; Morbid Obesity Interval history: Afebrile, no acute change. Currently on high flow nasal cannula. Objective - Exam Narrative Exam: Physical exam deferred to reduce risk of transmission of COVID-19. Please refer to primary team's note. - Constitutional Vitals: Vital Signs Temp Pulse Resp BP Pulse Ox 98.0 F 98 H 20 120/96 94 04/25/21 11:58 04/25/21 13:00 04/25/21 13:00 04/25/21 13:00 04/25/21 13:00 Temperature -Last 24 Hours Temperature 98.0 F Temperature 97.5 F Temperature 97.2 F Temperature 97.7 F Temperature 98.2 F - Labs CBC & Chem 7: 04/22/21 04:49 04/22/21 04:49 Labs: Abnormal lab results 04/24/21 04/25/21 04/25/21 Range/Units 21:20 11:33 16:23 POC Glucose 161 H 126 H 176 H (70-105) mg/dL
[2021-04-25] MEDS: ALPRAZolam 0.25 MG TAB PO SCH (21:53)
[2021-04-25] MEDS: ALBUTEROL 2.5 MG/3 ML NEBU IH PRN (22:20)
[2021-04-26] MEDS: HEPARIN 5,000 UNIT/1 ML VIAL SUB-Q SCH ×4 (05:56→21:06)
[2021-04-26] MEDS: GABAPENTIN 300 MG CAP PO SCH ×3 (08:49→20:36)
[2021-04-26] MEDS: BENZONATATE 100 MG CAP PO SCH ×4 (08:49→21:07)
[2021-04-26] MEDS: FAMOTIDINE 20 MG TAB PO SCH ×2 (11:34→23:00)
[2021-04-26] MEDS: ASCORBIC ACID 500 MG TAB PO SCH ×3 (11:35→21:07)
[2021-04-26] MEDS: ZINC SULFATE 220 MG CAP PO SCH ×3 (11:35→21:07)
--- NOTE | 2021-04-26 11:54 | Progress Note ---
Assessment and Plan Acute Hypoxemic Respiratory Failure ARDS ANKUSH COVID-19 infection Bilateral pneumonia Leukopenia Morbid obesity Thrombocytopenia Elevated serum transaminases - continue BIPAP qhs with prn daytime use - vapotherm in daytime - tentatively transfer to medical floor in am - continue care as below otherwise; - dopplers negative for VTE - continue to wean supplemental oxygen for target O2 sat's > 90% acutely - aspiration precautions - continue bronchodilators with pulmonary hygiene per RT - avoid nephrotoxins, renally dose all medications - avoid benzodiazepine's, reduce the possibility of delirium - complete AB's per ID rec's - continue accuchecks with glycemic control per SSI (While critically ill target blood glucose of 140-180 mg/dL; avoid hypoglycemia) - prn analgesia per pain score - Maintenance of sleep-wake cycle, avoid delirium - G.I. & VTE prophylaxis - PT/OT/ROM exercises - continue mobility protocols for pressure ulcer prophylaxis - Monitor hemodynamics closely - continue other care per attending / other consultants - discharge planning ongoing concurrently COVID SPECIFIC INTERVENTIONS - Remdesivir as per ID/Pulmonary developed protocols (received) - continue systemic steroids for severe COVID-19 infection empirically (Decadron) - follow repeat COVID tests results - zinc and vitamin C supplementation - Monitor inflammatory markers per facility protocol - ferritin, Ddimer, CRP - therapeutic anticoagulation per system Protocol based on d-dimer and clinical considerations (VTE prophylaxis) - Continue contact and airborne isolation .... Re-evaluate in am & prn CONDITION: CRITICAL PROGNOSIS: GUARDED CODE STATUS: FULL CODE The high probability of a clinically significant, sudden or life-threatening deterioration of the [respiratory, ID & cardiovascular] system(s) required my full and direct attention, intervention and personal management. The aggregate critical care time was [33] minutes without overlap. Time includes spent on; [x] Data Review and interpretation [x] Patient assessment and monitoring of vital signs [x] Documentation [x] Medication orders and management Subjective Date of service: 04/26/21 Principal diagnosis: AHRF; ARDS; ANKUSH; COVID-19 infxn; Pneumonia; Morbid Obesity Interval history: Patient is seen today for: Acute Hypoxemic Respiratory Failure; ARDS; ANKUSH; COVID-19 infxn; Pneumonia Seen and examined at bedside; 24hour events reviewed; nursing and respiratory care staff consulted; no adverse overnight events reported to me; resting in bed; remains on supplemental oxygen; BIPA qhs and HFNC daytime with 80% FiO2; No N/V/F/C Objective Vital Signs - 12hr 04/26/21 04/26/21 04/26/21 00:00 00:37 01:00 Temperature 97.6 F Pulse Rate 58 L 85 55 L Pulse Rate [ 59 L From Monitor] Respiratory 16 32 H 23 Rate Blood Pressure 138/76 138/76 128/72 O2 Sat by Pulse 94 95 96 Oximetry 04/26/21 04/26/21 04/26/21 02:00 03:00 03:41 Temperature Pulse Rate 66 58 L Pulse Rate [ 56 L From Monitor] Respiratory 13 19 20 Rate Blood Pressure 125/86 130/79 O2 Sat by Pulse 92 97 94 Oximetry 04/26/21 04/26/21 04/26/21 04:00 05:00 06:00 Temperature 97.7 F Pulse Rate 55 L 61 56 L Pulse Rate [ From Monitor] Respiratory 13 19 18 Rate Blood Pressure 137/77 122/74 135/78 O2 Sat by Pulse 97 97 93 Oximetry 04/26/21 04/26/21 07:00 08:00 Temperature 98.3 F Pulse Rate 58 L Pulse Rate [ From Monitor] Respiratory 12 Rate Blood Pressure 130/72 O2 Sat by Pulse 96 89 Oximetry Constitutional: no acute distress, alert, other (middle aged morbidly obese male with mildly increased respiratory effort at rest on Vapotherm FIO2 100%.) Eyes: non-icteric ENT: oropharynx moist Neck: supple, no lymphadenopathy, no JVD, other (large circumference) Effort: mildly labored Ascultation: Bilateral: diminished breath sounds, rhonchi Percussion: Bilateral: not dull Cardiovascular: regular rate and rhythm Gastrointestinal: normoactive bowel sounds, soft, non-tender, non-distended (protuberant) Integumentary: normal Extremities: no cyanosis, pink and warm, pulses normal, no ischemia or petechiae, edema (trace) Neurologic: normal mental status, non-focal exam, pupils equal and round, CN II- XII normal Psychiatric: mood appropriate, affect normal CBC and BMP: 04/22/21 04:49 04/22/21 04:49 ABG, PT/INR, D-dimer: ABG ABG pH 7.480 (7.320-7.450) H 04/19/21 17:21 POC ABG pCO2 37.3 mmHg (32.0-48.0) 04/19/21 17:21 ABG pCO2 36.2 mm Hg 04/18/21 Unknown POC ABG pO2 108.6 mmHg (83-108) H 04/19/21 17:21 ABG pO2 134.6 mm Hg (80.0-90.0) H 04/18/21 Unknown POC ABG HCO3 27.2 04/19/21 17:21 ABG O2 Saturation 98.2 (0-100) 04/19/21 17:21 PT/INR, D-dimer D-Dimer 1880.44 ng/mlDDU (0-234) H 04/22/21 04:49 Abnormal lab findings: Abnormal Labs 04/16/21 04/16/21 04/17/21 21:18 21:18 16:40 WBC 3.5 L RDW Plt Count 85 L Lymph % (Auto) Ross % (Auto) Lymph # (Auto) 0.7 L Ross # (Auto) Seg Neutrophils % 74.2 H D-Dimer ABG pH POC ABG pO2 ABG pO2 ABG HCO3 ABG O2 Saturation ABG Base Excess ABG Hemoglobin ABG Oxyhemoglobin ABG Sodium ABG Chloride ABG Glucose Oxyhemoglobin Carboxyhemoglobin Sodium 132 L Chloride 93.8 L Carbon Dioxide BUN Creatinine 0.7 L Glucose 125 H POC Glucose Calcium 8.2 L Ferritin 1918.0 H AST 83 H ALT 63 H Lactate Dehydrogenase C-Reactive Protein Albumin 3.7 L Arterial Blood Glucose Arterial Blood Ionized Calcium Coronavirus (PCR) 04/17/21 04/17/21 04/17/21 16:40 16:40 16:40 WBC RDW Plt Count Lymph % (Auto) Ross % (Auto) Lymph # (Auto) Ross # (Auto) Seg Neutrophils % D-Dimer 306.45 H ABG pH POC ABG pO2 ABG pO2 ABG HCO3 ABG O2 Saturation ABG Base Excess ABG Hemoglobin ABG Oxyhemoglobin ABG Sodium ABG Chloride ABG Glucose Oxyhemoglobin Carboxyhemoglobin Sodium 135 L Chloride 96.2 L Carbon Dioxide BUN Creatinine Glucose 155 H POC Glucose Calcium Ferritin AST 72 H ALT 68 H Lactate Dehydrogenase 505 H C-Reactive Protein 16.30 H Albumin 3.5 L Arterial Blood Glucose Arterial Blood Ionized Calcium Coronavirus (PCR) 04/17/21 04/17/21 04/18/21 18:45 Unknown 03:53 WBC RDW 13.1 L Plt Count 115 L Lymph % (Auto) 13.0 L Ross % (Auto) 8.7 H Lymph # (Auto) 1.0 L Ross # (Auto) Seg Neutrophils % 78.2 H D-Dimer ABG pH POC ABG pO2 ABG pO2 56.8 L ABG HCO3 27.4 H ABG O2 Saturation 90.8 L ABG Base Excess 3.1 H ABG Hemoglobin 11.3 L 13.7 L ABG Oxyhemoglobin ABG Sodium ABG Chloride ABG Glucose Oxyhemoglobin 89.4 L Carboxyhemoglobin Sodium Chloride Carbon Dioxide BUN Creatinine Glucose POC Glucose Calcium Ferritin AST ALT Lactate Dehydrogenase C-Reactive Protein Albumin Arterial Blood Glucose Arterial Blood Ionized Calcium Coronavirus (PCR) 04/18/21 04/18/21 04/18/21 03:53 08:02 Unknown WBC RDW Plt Count Lymph % (Auto) Ross % (Auto) Lymph # (Auto) Ross # (Auto) Seg Neutrophils % D-Dimer ABG pH POC ABG pO2 ABG pO2 64.3 L 134.6 H ABG HCO3 26.9 H ABG O2 Saturation 93.6 L ABG Base Excess -3.3 L ABG Hemoglobin 11.9 L ABG Oxyhemoglobin ABG Sodium ABG Chloride ABG Glucose Oxyhemoglobin 92.3 L Carboxyhemoglobin Sodium 135 L Chloride 95.9 L Carbon Dioxide BUN Creatinine 0.7 L Glucose 149 H POC Glucose Calcium Ferritin AST 62 H ALT 59 H Lactate Dehydrogenase C-Reactive Protein Albumin 3.3 L Arterial Blood Glucose Arterial Blood Ionized Calcium Coronavirus (PCR) 04/19/21 04/19/21 04/19/21 01:37 07:28 08:44 WBC RDW Plt Count Lymph % (Auto) Ross % (Auto) Lymph # (Auto) Ross # (Auto) Seg Neutrophils % D-Dimer ABG pH POC ABG pO2 56.3 L ABG pO2 ABG HCO3 ABG O2 Saturation ABG Base Excess ABG Hemoglobin ABG Oxyhemoglobin 88.3 L ABG Sodium 132.8 L ABG Chloride 96.0 L ABG Glucose 145 H Oxyhemoglobin Carboxyhemoglobin 0.4 L Sodium Chloride 97.4 L Carbon Dioxide BUN Creatinine 0.7 L Glucose 130 H POC Glucose 135 H Calcium Ferritin AST 53 H ALT Lactate Dehydrogenase C-Reactive Protein Albumin 3.6 L Arterial Blood Glucose 145 H Arterial Blood Ionized Calcium 4.5 L Coronavirus (PCR) 04/19/21 04/19/21 04/19/21 08:44 11:30 16:53 WBC RDW 12.8 L Plt Count Lymph % (Auto) Ross % (Auto) Lymph # (Auto) Ross # (Auto) Seg Neutrophils % D-Dimer ABG pH POC ABG pO2 ABG pO2 ABG HCO3 ABG O2 Saturation ABG Base Excess ABG Hemoglobin ABG Oxyhemoglobin ABG Sodium ABG Chloride ABG Glucose Oxyhemoglobin Carboxyhemoglobin Sodium Chloride Carbon Dioxide BUN Creatinine Glucose POC Glucose 129 H 146 H Calcium Ferritin AST ALT Lactate Dehydrogenase C-Reactive Protein Albumin Arterial Blood Glucose Arterial Blood Ionized Calcium Coronavirus (PCR) 04/19/21 04/19/21 04/20/21 17:21 21:07 07:18 WBC RDW Plt Count Lymph % (Auto) Ross % (Auto) Lymph # (Auto) Ross # (Auto) Seg Neutrophils % D-Dimer ABG pH 7.480 H POC ABG pO2 108.6 H ABG pO2 ABG HCO3 ABG O2 Saturation ABG Base Excess ABG Hemoglobin ABG Oxyhemoglobin ABG Sodium 134.1 L ABG Chloride 97.0 L ABG Glucose 167 H Oxyhemoglobin Carboxyhemoglobin 0.4 L Sodium Chloride Carbon Dioxide BUN Creatinine Glucose POC Glucose 152 H 128 H Calcium Ferritin AST ALT Lactate Dehydrogenase C-Reactive Protein Albumin Arterial Blood Glucose 167 H Arterial Blood Ionized Calcium Coronavirus (PCR) 04/20/21 04/20/21 04/20/21 11:08 11:08 11:08 WBC RDW Plt Count Lymph % (Auto) Ross % (Auto) Lymph # (Auto) Ross # (Auto) Seg Neutrophils % D-Dimer 1082.55 H ABG pH POC ABG pO2 ABG pO2 ABG HCO3 ABG O2 Saturation ABG Base Excess ABG Hemoglobin ABG Oxyhemoglobin ABG Sodium ABG Chloride ABG Glucose Oxyhemoglobin Carboxyhemoglobin Sodium Chloride Carbon Dioxide BUN 26 H Creatinine Glucose 121 H POC Glucose Calcium Ferritin 1389.0 H AST 46 H ALT Lactate Dehydrogenase 647 H C-Reactive Protein 5.50 H Albumin 3.5 L Arterial Blood Glucose Arterial Blood Ionized Calcium Coronavirus (PCR) 04/20/21 04/20/21 04/20/21 11:08 16:04 21:10 WBC RDW 12.9 L Plt Count Lymph % (Auto) Ross % (Auto) 14.0 H Lymph # (Auto) Ross # (Auto) 0.9 H Seg Neutrophils % D-Dimer ABG pH POC ABG pO2 ABG pO2 ABG HCO3 ABG O2 Saturation ABG Base Excess ABG Hemoglobin ABG Oxyhemoglobin ABG Sodium ABG Chloride ABG Glucose Oxyhemoglobin Carboxyhemoglobin Sodium Chloride Carbon Dioxide BUN Creatinine Glucose POC Glucose 159 H 149 H Calcium Ferritin AST ALT Lactate Dehydrogenase C-Reactive Protein Albumin Arterial Blood Glucose Arterial Blood Ionized Calcium Coronavirus (PCR) 04/20/21 04/21/21 04/21/21 Unknown 11:34 11:34 WBC RDW 13.1 L Plt Count Lymph % (Auto) Ross % (Auto) 13.0 H Lymph # (Auto) Ross # (Auto) 1.2 H Seg Neutrophils % 70.4 H D-Dimer ABG pH POC ABG pO2 ABG pO2 ABG HCO3 ABG O2 Saturation ABG Base Excess ABG Hemoglobin ABG Oxyhemoglobin ABG Sodium ABG Chloride ABG Glucose Oxyhemoglobin Carboxyhemoglobin Sodium Chloride Carbon Dioxide BUN 27 H Creatinine Glucose 107 H POC Glucose Calcium Ferritin AST 46 H ALT Lactate Dehydrogenase C-Reactive Protein Albumin 3.4 L Arterial Blood Glucose Arterial Blood Ionized Calcium Coronavirus (PCR) Positive A 04/21/21 04/21/21 04/22/21 17:00 22:05 04:49 WBC RDW Plt Count Lymph % (Auto) 12.2 L Ross % (Auto) 10.7 H Lymph # (Auto) Ross # (Auto) 1.1 H Seg Neutrophils % 76.6 H D-Dimer ABG pH POC ABG pO2 ABG pO2 ABG HCO3 ABG O2 Saturation ABG Base Excess ABG Hemoglobin ABG Oxyhemoglobin ABG Sodium ABG Chloride ABG Glucose Oxyhemoglobin Carboxyhemoglobin Sodium Chloride Carbon Dioxide BUN Creatinine Glucose POC Glucose 138 H 133 H Calcium Ferritin AST ALT Lactate Dehydrogenase C-Reactive Protein Albumin Arterial Blood Glucose Arterial Blood Ionized Calcium Coronavirus (PCR) 04/22/21 04/22/21 04/22/21 04:49 04:49 04:49 WBC RDW Plt Count Lymph % (Auto) Ross % (Auto) Lymph # (Auto) Ross # (Auto) Seg Neutrophils % D-Dimer 1880.44 H ABG pH POC ABG pO2 ABG pO2 ABG HCO3 ABG O2 Saturation ABG Base Excess ABG Hemoglobin ABG Oxyhemoglobin ABG Sodium ABG Chloride ABG Glucose Oxyhemoglobin Carboxyhemoglobin Sodium Chloride 108.6 H Carbon Dioxide 21 L D BUN 28 H Creatinine 0.6 L Glucose 115 H POC Glucose Calcium Ferritin 1185.0 H AST 50 H ALT Lactate Dehydrogenase 759 H C-Reactive Protein 1.60 H Albumin 3.1 L Arterial Blood Glucose Arterial Blood Ionized Calcium Coronavirus (PCR) 04/22/21 04/22/21 04/23/21 16:17 22:08 21:14 WBC RDW Plt Count Lymph % (Auto) Ross % (Auto) Lymph # (Auto) Ross # (Auto) Seg Neutrophils % D-Dimer ABG pH POC ABG pO2 ABG pO2 ABG HCO3 ABG O2 Saturation ABG Base Excess ABG Hemoglobin ABG Oxyhemoglobin ABG Sodium ABG Chloride ABG Glucose Oxyhemoglobin Carboxyhemoglobin Sodium Chloride Carbon Dioxide BUN Creatinine Glucose POC Glucose 158 H 134 H 159 H Calcium Ferritin AST ALT Lactate Dehydrogenase C-Reactive Protein Albumin Arterial Blood Glucose Arterial Blood Ionized Calcium Coronavirus (PCR) 04/24/21 04/25/21 04/25/21 21:20 11:33 16:23 WBC RDW Plt Count Lymph % (Auto) Ross % (Auto) Lymph # (Auto) Ross # (Auto) Seg Neutrophils % D-Dimer ABG pH POC ABG pO2 ABG pO2 ABG HCO3 ABG O2 Saturation ABG Base Excess ABG Hemoglobin ABG Oxyhemoglobin ABG Sodium ABG Chloride ABG Glucose Oxyhemoglobin Carboxyhemoglobin Sodium Chloride Carbon Dioxide BUN Creatinine Glucose POC Glucose 161 H 126 H 176 H Calcium Ferritin AST ALT Lactate Dehydrogenase C-Reactive Protein Albumin Arterial Blood Glucose Arterial Blood Ionized Calcium Coronavirus (PCR) 04/25/21 21:06 WBC RDW Plt Count Lymph % (Auto) Ross % (Auto) Lymph # (Auto) Ross # (Auto) Seg Neutrophils % D-Dimer ABG pH POC ABG pO2 ABG pO2 ABG HCO3 ABG O2 Saturation ABG Base Excess ABG Hemoglobin ABG Oxyhemoglobin ABG Sodium ABG Chloride ABG Glucose Oxyhemoglobin Carboxyhemoglobin Sodium Chloride Carbon Dioxide BUN Creatinine Glucose POC Glucose 214 H Calcium Ferritin AST ALT Lactate Dehydrogenase C-Reactive Protein Albumin Arterial Blood Glucose Arterial Blood Ionized Calcium Coronavirus (PCR) Allied health notes reviewed: nursing
--- NOTE | 2021-04-26 12:07 | Progress Note ---
Assessment and Plan Assessment and plan: 51-year-old male with history of morbid obesity, hypertension, migraine, coronary osteoarthritis and GERD and headache was brought to the emergency room because of progressive shortness of breath. Patient has history of Covid and he was admitted last week to the hospital. He states he was sent home with oxygen however he is needed 4 L of oxygen and his shortness of breath has gotten worse when he walks his oxygen drops down to the mid 80s. Patient stated that he came into contact with an individual who had tested positive for COVID-19 viral infection, but he admits that he has been fully vaccinated against COVID-19 viral infection. In the emergency room patient CT scan of the chest showed sc attered groundglass opacities at the bilateral lung suggesting atypical infectious process. Acute hypoxic respiratory failure Severe COVID-19 pneumonia Morbid obesity 04/19/21:clinically the patient appears to be in no distress despite being on 100% fio2 bipap mask. However, ABG data looks worse, Po2: 56.3. CXR demonstrates worsened pulmonary interstitial infiltrates. Discussed case with Dr. Lagunas. Low threshold for intubation should he worsen. Patient was advised on my encounter to maintain bipap mask and not remove it. Continue therapy with decadron, remdesivir. Dc abx due to low procal. Actemra ordered. Will follow ID recs. Consult PT to continue mobilizing patient. Encouraged patient to do so in presence of care staff 04/20/2021: Remains bipap dependent. No acute changes in respiratory status. Unfortunately he is low threshold for intubation. Will follow pulmonology/ID recommendations. 04/21/2021: Remains bipap dependent. Currenlty 100%. No changes overnight. Will follow pulm/ID recs. 04/22/2021. Patient currently requiring high flow nasal cannula with 40 L O2 FiO2 of 100%. Continue dexamethasone 6 mg IV for total of 10 days with remdesivir IV x5 days. Continue to follow inflammatory markers of ferritin, D-dimer, CRP and LDH. Patient is s/p Tocilizumab. Prone positioning as able. 04/23/2021: Patient currently requiring high flow nasal cannula with 40 L O2 FiO2 of 100% and BiPAP at night. Continue dexamethasone 6 mg IV for total of 10 days with remdesivir IV x5 days. Continue to follow inflammatory markers of ferritin, D-dimer, CRP and LDH. Patient is s/p Tocilizumab. Prone positioning as able. ID and pulmonary following. 04/24/2021: Patient currently requiring high flow nasal cannula with 40 L O2 FiO2 of 90% and BiPAP at night. Continue dexamethasone 6 mg IV for total of 10 days with remdesivir IV x5 days. Continue to follow inflammatory markers of ferritin, D-dimer, CRP and LDH. Patient is s/p Tocilizumab. Prone positioning as able. ID and pulmonary following. 04/25/2021. Patient currently requiring high flow nasal cannula with 40 L O2 FiO2 of 70% and BiPAP at night. Continue dexamethasone 6 mg IV for total of 10 days with remdesivir IV x5 days. Continue to follow inflammatory markers of ferritin, D-dimer, CRP and LDH. Patient is s/p Tocilizumab. Prone positioning as able. ID and pulmonary following. 04/26/2021. Patient currently requiring high flow nasal cannula with 40 L O2 FiO2 of 80% and BiPAP at night. O2 requirement had to be increased slightly since yesterday. Continue current management. Patient is s/p Tocilizumab. The dexamethasone and remdesivir have been completed. Consider continuing steroids given the ongoing hypoxia. Defer to pulmonary. Continue to monitor inflammatory markers of ferritin, D-dimer, CRP and LDH. History Interval history: No new issues overnight Hospitalist Physical - Constitutional Vitals: Temp Pulse Resp BP Pulse Ox 98.3 F 58 L 12 130/72 89 04/26/21 08:00 04/26/21 07:00 04/26/21 07:00 04/26/21 07:00 04/26/21 08:00 General appearance: Present: no acute distress, obese - EENT Eyes: Present: PERRL, EOM intact ENT: hearing intact, clear oral mucosa, dentition normal - Neck Neck: Present: supple, normal ROM - Respiratory Respiratory effort: normal Respiratory: bilateral: CTA - Cardiovascular Rhythm: regular Heart Sounds: Present: S1 & S2. Absent: gallop, rub - Extremities Extremities: no ischemia, No edema, Full ROM - Abdominal General gastrointestinal: soft, non-tender, non-distended, normal bowel sounds - Integumentary Integumentary: Present: clear, warm, dry - Neurologic Neurologic: CNII-XII intact, moves all extremities Results - Labs CBC & Chem 7: 04/22/21 04:49 04/22/21 04:49 Labs: Laboratory Last Values WBC 10.0 K/mm3 (4.5-11.0) 04/22/21 04:49 RBC 4.74 M/mm3 (3.65-5.03) 04/22/21 04:49 Hgb 13.7 gm/dl (11.8-15.2) 04/22/21 04:49 Hct 42.7 % (35.5-45.6) 04/22/21 04:49 MCV 90 fl (84-94) 04/22/21 04:49 MCH 29 pg (28-32) 04/22/21 04:49 MCHC 32 % (32-34) 04/22/21 04:49 RDW 13.2 % (13.2-15.2) 04/22/21 04:49 Plt Count 179 K/mm3 (140-440) 04/22/21 04:49 Lymph % (Auto) 12.2 % (13.4-35.0) L 04/22/21 04:49 [place] % (Auto) 10.7 % (0.0-7.3) H 04/22/21 04:49 Eos % (Auto) 0.4 % (0.0-4.3) 04/22/21 04:49 Baso % (Auto) 0.1 % (0.0-1.8) 04/22/21 04:49 Lymph # (Auto) 1.2 K/mm3 (1.2-5.4) 04/22/21 04:49 [place] # (Auto) 1.1 K/mm3 (0.0-0.8) H 04/22/21 04:49 Eos # (Auto) 0.0 K/mm3 (0.0-0.4) 04/22/21 04:49 Baso # (Auto) 0.0 K/mm3 (0.0-0.1) 04/22/21 04:49 Seg Neutrophils % 76.6 % (40.0-70.0) H 04/22/21 04:49 Seg Neutrophils # 7.7 K/mm3 (1.8-7.7) 04/22/21 04:49 D-Dimer 1880.44 ng/mlDDU (0-234) H 04/22/21 04:49 ABG pH 7.480 (7.320-7.450) H 04/19/21 17: POC ABG pCO2 37.3 mmHg (32.0-48.0) 04/19/21 17: ABG pCO2 36.2 mm Hg 04/18/21 Unknown POC ABG pO2 108.6 mmHg (83-108) H 04/19/21 17: ABG pO2 134.6 mm Hg (80.0-90.0) H 04/18/21 Unknown POC ABG HCO3 27.2 04/19/21: ABG HCO3 21.0 mmol/L (20.0-26.0) 04/18/21 Unknown ABG O2 Saturation 98.2 (0-100) 04/19/21: ABG O2 Content 22.0 (0.0-44) 04/18/21 Unknown POC ABG Base Excess 3.7 04/19/21 17: ABG Base Excess -3.3 mmol/L (-2.0-3.0) L 04/18/21 Unknown ABG Hemoglobin 14.0 (12.0-17.5) 04/19/21: ABG Oxyhemoglobin 97.5 (94-98) 04/19/21 17: ABG Carboxyhemoglobin 0.7 % (0.0-5.0) 04/18/21 Unknown ABG Methemoglobin 0.3 (0.0-1.5) 04/19/21: ABG Sodium 134.1 mmol/L (136.0-145.0) L 04/19/21: ABG Potassium 4.4 mmol/L (3.40-4.50) 04/19/21: ABG Chloride 97.0 mmol/L (98-107) L 04/19/21: ABG Glucose 167 mg/dL (65-95) H 04/19/21: Oxyhemoglobin 97.2 % (95.0-99.0) 04/18/21 Unknown Carboxyhemoglobin 0.4 (0.5-1.5) L 04/19/21 17: FiO2 100 % 04/18/21 Unknown FiO2 % 100 04/19/21 17:21 Sodium 143 mmol/L (137-145) 04/22/21 04:49 Potassium 4.8 mmol/L (3.6-5.0) 04/22/21 04:49 Chloride 108.6 mmol/L (98-107) H 04/22/21 04:49 Carbon Dioxide 21 mmol/L (22-30) L D 04/22/21 04:49 Anion Gap 18 mmol/L 04/22/21 04:49 BUN 28 mg/dL (9-20) H 04/22/21 04:49 Creatinine 0.6 mg/dL (0.8-1.3) L 04/22/21 04:49 Estimated GFR > 60 ml/min 04/22/21 04:49 BUN/Creatinine Ratio 47 % 04/22/21 04:49 Glucose 115 mg/dL (75-100) H 04/22/21 04:49 POC Glucose 95 mg/dL (70-105) 04/26/21 11:28 Lactic Acid 1.10 mmol/L (0.7-2.0) 04/16/21 21:18 Calcium 8.4 mg/dL (8.4-10.2) 04/22/21 04:49 Ferritin 1185.0 ng/mL (30.0-300.0) H 04/22/21 04:49 Total Bilirubin 0.80 mg/dL (0.1-1.2) 04/22/21 04:49 AST 50 units/L (5-40) H 04/22/21 04:49 ALT 53 units/L (7-56) 04/22/21 04:49 Alkaline Phosphatase 70 units/L (35-129) 04/22/21 04:49 Lactate Dehydrogenase 759 units/L (91-180) H 04/22/21 04:49 C-Reactive Protein 1.60 mg/dL (0.00-1.30) H 04/22/21 04:49 NT-Pro-B Natriuret Pep 79.47 pg/mL (0-900) 04/17/21 16:40 Total Protein 6.4 g/dL (6.3-8.2) 04/22/21 04:49 Albumin 3.1 g/dL (3.9-5) L 04/22/21 04:49 Albumin/Globulin Ratio 0.9 % 04/22/21 04:49 Procalcitonin 0.15 ng/mL (<0.15) 04/17/21 16:40 Arterial Blood Glucose 167 mg/dL (65-95) H 04/19/21 17:21 Arterial Blood Ionized Calcium 4.6 mg/dL (4.6-5.3) 04/19/21 17:21 Coronavirus (PCR) Positive (Negative) A 04/20/21 Unknown Martin/IV: Voiding Method Urinal Active Medications - Current Medications Current Medications: Generic Name Dose Route Start Last Admin Trade Name Freq PRN Reason Stop Dose Admin Acetaminophen 650 mg 04/17/21 01:45 Acetaminophen 325 Mg Tab PO Q4H PRN Pain MILD(1-3)/Fever >100.5/AL[place]ANDER Albuterol 2.5 mg 04/17/21 01:45 04/25/21 22:20 Albuterol 2.5 Mg/3 Ml Nebu IH 2.5 mg Q4HRT PRN Administration Shortness Of Breath Alprazolam 0.25 mg 04/17/21 22:00 04/25/21 21:53 Alprazolam 0.25 Mg Tab PO 0.25 mg QHS DEIRDRE Administration Ascorbic Acid 1,000 mg 04/17/21 02:00 04/26/21 11:35 Ascorbic Acid 500 Mg Tab PO 1,000 mg Q12HR DEIRDRE Administration Benzonatate 100 mg 04/17/21 06:00 04/26/21 08:49 Benzonatate 100 Mg Cap PO 100 mg Q8HR DEIRDRE Administration Cyclobenzaprine HCl 10 mg 04/17/21 01:49 04/18/21 09:28 Cyclobenzaprine 10 Mg Tab PO 10 mg TID PRN Administration Spasms Famotidine 20 mg 04/25/21 10:00 04/26/21 11:34 Famotidine 20 Mg Tab PO 20 mg BID DEIRDRE Administration Gabapentin 300 mg 04/17/21 08:00 04/26/21 08:49 Gabapentin 300 Mg Cap PO 300 mg TID DEIRDRE Administration Heparin Sodium (Porcine) 5,000 unit 04/17/21 06:00 04/26/21 05:56 Heparin 5,000 Unit/1 Ml Vial SUB-Q 5,000 unit Q8HR DEIRDRE Administration Hydralazine HCl 10 mg 04/17/21 02:00 04/22/21 19:16 Hydralazine 20 Mg/1 Ml Inj IV 10 mg Q6H PRN Administration Blood Pressure Hydromorphone HCl 0.5 mg 04/17/21 01:45 04/18/21 09:27 Hydromorphone 1 Mg/1 Ml Inj IV 0.5 mg Q3H PRN Administration Pain , Severe (7-10) Lorazepam 0.5 mg 04/21/21 08:44 04/21/21 22:18 Lorazepam 2 Mg/Ml Vial IV 0.5 mg Q4H PRN Administration Anxiety Morphine Sulfate 2 mg 04/17/21 01:45 04/18/21 16:38 Morphine 2 Mg/1 Ml Inj IV 2 mg Q4H PRN Administration Pain, Moderate (4-6) Ondansetron HCl 4 mg 04/17/21 01:45 04/18/21 07:48 Ondansetron 4 Mg/2 Ml Inj IV 4 mg Q8H PRN Administration Nausea And Vomiting Sodium Chloride 10 ml 04/17/21 10:00 04/26/21 11:35 Sodium Chloride 0.9% 10 Ml Flush Syringe IV 10 ml BID DEIRDRE Administration Sodium Chloride 10 ml 04/17/21 01:45 Sodium Chloride 0.9% 10 Ml Flush Syringe IV PRN PRN LINE FLUSH Zinc Sulfate 220 mg 04/17/21 22:00 04/26/21 11:35 Zinc Sulfate 220 Mg Cap PO 220 mg BID DEIRDRE Administration Nutrition/Malnutrition Assess - Dietary Evaluation Nutrition/Malnutrition Findings: Nutrition Notes Start: 04/24/21 17:14 Freq: Status: Active Protocol: Document 04/24/21 17:14 TEDDY (Rec: 04/24/21 17:41 TEDDY [id number]) Nutrition Notes Need for Assessment generated from: LOS Initial or Follow up Assessment Current Diagnosis Coronary Artery Disease, Hypertension,Respiratory Failure Other Pertinent Diagnosis COVID-19, Pneumonia, AHRF, ARDS, ANKUSH. Current Diet Cardiac Diet (since B 04/17). Labs/Tests 04/22: Cl 108.6, CO2 21, BUN 28, Crea 0.6, Glu 115. Pertinent Medications 04/24: Vit C, ZnSO4, others nutritionally unremarkable. Height 5 ft 8 in Weight 161 kg [place] Body Weight (kg) 70.00 BMI 53.9 Intake Prior to Admission Good Weight change and time frame None reported at admission. Weight Status Morbidly Obese Subjective/Other Information RD consult for LOS assessment. Pt's PO intake of meals is Good (75-100%), according to ADL notes. Percent of energy/protein needs met: Prescribed Cardiac Diet provides for energy/protein needs (2,230 Kcal/85 g) during LOS. Burn Absent Trauma Absent GI Symptoms None Food Allergy No Skin Integrity/Comment Clear, warm, dry. Current % PO Good (75-100%) Minimum of two criteria No Is patient on ventilator? No Is Patient Ambulatory and/or Out of Bed Yes REE-([place]-ambulatory/OOB) [ 3164.850 NUTR.MSJOOB] Kcal/Kg value to use for calculation 9 Approximate Energy Requirements Using 1449 kcal/Kg Calculation Used for Recommendations Kcal/kg Additional Notes Protein: 0.8-1 g/Kg; 93-116 g/ day. Fluids: 1 ml/Kcal, or as per MD. Nutrition Intervention Change Diet Order: Continue Cardiac Diet. Revisit per MD consult or patient Sign Off request: Additional Comments Continue monitoring food tolerance, %PO intake of meals , and BM.
[2021-04-26] MEDS: ALPRAZolam 0.25 MG TAB PO SCH ×2 (20:35→21:07)
[2021-04-26] MEDS: MORPHINE 2 MG/1 ML INJ IV PRN (20:36)
[2021-04-27] MEDS: BENZONATATE 100 MG CAP PO SCH ×3 (06:42→21:02)
[2021-04-27] MEDS: HEPARIN 5,000 UNIT/1 ML VIAL SUB-Q SCH ×3 (06:43→21:06)
[2021-04-27] MEDS: FAMOTIDINE 20 MG TAB PO SCH ×2 (09:06→21:02)
[2021-04-27] MEDS: ZINC SULFATE 220 MG CAP PO SCH ×2 (09:06→21:02)
[2021-04-27] MEDS: ASCORBIC ACID 500 MG TAB PO SCH ×2 (09:07→21:02)
[2021-04-27] MEDS: GABAPENTIN 300 MG CAP PO SCH ×3 (09:07→21:01)
--- NOTE | 2021-04-27 10:15 | Progress Note ---
Assessment and Plan Assessment and plan: 51-year-old male with history of morbid obesity, hypertension, migraine, coronary osteoarthritis and GERD and headache was brought to the emergency room because of progressive shortness of breath. Patient has history of Covid and he was admitted last week to the hospital. He states he was sent home with oxygen however he is needed 4 L of oxygen and his shortness of breath has gotten worse when he walks his oxygen drops down to the mid 80s. Patient stated that he came into contact with an individual who had tested positive for COVID-19 viral infection, but he admits that he has been fully vaccinated against COVID-19 viral infection. In the emergency room patient CT scan of the chest showed sc attered groundglass opacities at the bilateral lung suggesting atypical infectious process. Acute hypoxic respiratory failure Severe COVID-19 pneumonia Morbid obesity 04/19/21:clinically the patient appears to be in no distress despite being on 100% fio2 bipap mask. However, ABG data looks worse, Po2: 56.3. CXR demonstrates worsened pulmonary interstitial infiltrates. Discussed case with Dr. Lagunas. Low threshold for intubation should he worsen. Patient was advised on my encounter to maintain bipap mask and not remove it. Continue therapy with decadron, remdesivir. Dc abx due to low procal. Actemra ordered. Will follow ID recs. Consult PT to continue mobilizing patient. Encouraged patient to do so in presence of care staff 04/20/2021: Remains bipap dependent. No acute changes in respiratory status. Unfortunately he is low threshold for intubation. Will follow pulmonology/ID recommendations. 04/21/2021: Remains bipap dependent. Currenlty 100%. No changes overnight. Will follow pulm/ID recs. 04/22/2021. Patient currently requiring high flow nasal cannula with 40 L O2 FiO2 of 100%. Continue dexamethasone 6 mg IV for total of 10 days with remdesivir IV x5 days. Continue to follow inflammatory markers of ferritin, D-dimer, CRP and LDH. Patient is s/p Tocilizumab. Prone positioning as able. 04/23/2021: Patient currently requiring high flow nasal cannula with 40 L O2 FiO2 of 100% and BiPAP at night. Continue dexamethasone 6 mg IV for total of 10 days with remdesivir IV x5 days. Continue to follow inflammatory markers of ferritin, D-dimer, CRP and LDH. Patient is s/p Tocilizumab. Prone positioning as able. ID and pulmonary following. 04/24/2021: Patient currently requiring high flow nasal cannula with 40 L O2 FiO2 of 90% and BiPAP at night. Continue dexamethasone 6 mg IV for total of 10 days with remdesivir IV x5 days. Continue to follow inflammatory markers of ferritin, D-dimer, CRP and LDH. Patient is s/p Tocilizumab. Prone positioning as able. ID and pulmonary following. 04/25/2021. Patient currently requiring high flow nasal cannula with 40 L O2 FiO2 of 70% and BiPAP at night. Continue dexamethasone 6 mg IV for total of 10 days with remdesivir IV x5 days. Continue to follow inflammatory markers of ferritin, D-dimer, CRP and LDH. Patient is s/p Tocilizumab. Prone positioning as able. ID and pulmonary following. 04/26/2021. Patient currently requiring high flow nasal cannula with 40 L O2 FiO2 of 80% and BiPAP at night. O2 requirement had to be increased slightly since yesterday. Continue current management. Patient is s/p Tocilizumab. The dexamethasone and remdesivir have been completed. Consider continuing steroids given the ongoing hypoxia. Defer to pulmonary. Continue to monitor inflammatory markers of ferritin, D-dimer, CRP and LDH. 04/27/2021. Patient currently requiring high flow nasal cannula with 40 L O2 FiO2 of 80% and BiPAP at night. Continue current management. Patient is s/p Tocilizumab. The dexamethasone and remdesivir have been completed. Consider continuing steroids given the ongoing hypoxia. Defer to pulmonary. Continue to monitor inflammatory markers of ferritin, D-dimer, CRP and LDH. History Interval history: No new issues overnight Hospitalist Physical - Constitutional Vitals: Temp Pulse Resp BP Pulse Ox 98.1 F 67 24 115/67 88 04/27/21 08:00 04/27/21 06:00 04/27/21 06:00 04/27/21 06:00 04/27/21 08:00 General appearance: Present: no acute distress, obese - EENT Eyes: Present: PERRL, EOM intact ENT: hearing intact, clear oral mucosa, dentition normal - Neck Neck: Present: supple, normal ROM - Respiratory Respiratory effort: normal Respiratory: bilateral: CTA - Cardiovascular Rhythm: regular Heart Sounds: Present: S1 & S2. Absent: gallop, rub - Extremities Extremities: no ischemia, No edema, Full ROM - Abdominal General gastrointestinal: soft, non-tender, non-distended, normal bowel sounds - Integumentary Integumentary: Present: clear, warm, dry - Neurologic Neurologic: CNII-XII intact, moves all extremities Results - Labs CBC & Chem 7: 04/22/21 04:49 04/22/21 04:49 Labs: Laboratory Last Values WBC 10.0 K/mm3 (4.5-11.0) 04/22/21 04:49 RBC 4.74 M/mm3 (3.65-5.03) 04/22/21 04:49 Hgb 13.7 gm/dl (11.8-15.2) 04/22/21 04:49 Hct 42.7 % (35.5-45.6) 04/22/21 04:49 MCV 90 fl (84-94) 04/22/21 04:49 MCH 29 pg (28-32) 04/22/21 04:49 MCHC 32 % (32-34) 04/22/21 04:49 RDW 13.2 % (13.2-15.2) 04/22/21 04:49 Plt Count 179 K/mm3 (140-440) 04/22/21 04:49 Lymph % (Auto) 12.2 % (13.4-35.0) L 04/22/21 04:49 [place] % (Auto) 10.7 % (0.0-7.3) H 04/22/21 04:49 Eos % (Auto) 0.4 % (0.0-4.3) 04/22/21 04:49 Baso % (Auto) 0.1 % (0.0-1.8) 04/22/21 04:49 Lymph # (Auto) 1.2 K/mm3 (1.2-5.4) 04/22/21 04:49 [place] # (Auto) 1.1 K/mm3 (0.0-0.8) H 04/22/21 04:49 Eos # (Auto) 0.0 K/mm3 (0.0-0.4) 04/22/21 04:49 Baso # (Auto) 0.0 K/mm3 (0.0-0.1) 04/22/21 04:49 Seg Neutrophils % 76.6 % (40.0-70.0) H 04/22/21 04:49 Seg Neutrophils # 7.7 K/mm3 (1.8-7.7) 04/22/21 04:49 D-Dimer 1880.44 ng/mlDDU (0-234) H 04/22/21 04:49 ABG pH 7.480 (7.320-7.450) H 04/19/21 17:21 POC ABG pCO2 37.3 mmHg (32.0-48.0) 04/19/21 17: ABG pCO2 36.2 mm Hg 04/18/21 Unknown POC ABG pO2 108.6 mmHg (83-108) H 04/19/21 17: ABG pO2 134.6 mm Hg (80.0-90.0) H 04/18/21 Unknown POC ABG HCO3 27.2 04/19/21 17: ABG HCO3 21.0 mmol/L (20.0-26.0) 04/18/21 Unknown ABG O2 Saturation 98.2 (0-100) 04/19/21 17: ABG O2 Content 22.0 (0.0-44) 04/18/21 Unknown POC ABG Base Excess 3.7 04/19/21: ABG Base Excess -3.3 mmol/L (-2.0-3.0) L 04/18/21 Unknown ABG Hemoglobin 14.0 (12.0-17.5) 04/19/21 17: ABG Oxyhemoglobin 97.5 (94-98) 04/19/21 17: ABG Carboxyhemoglobin 0.7 % (0.0-5.0) 04/18/21 Unknown ABG Methemoglobin 0.3 (0.0-1.5) 04/19/21: ABG Sodium 134.1 mmol/L (136.0-145.0) L 04/19/21: ABG Potassium 4.4 mmol/L (3.40-4.50) 04/19/21: ABG Chloride 97.0 mmol/L (98-107) L 01/01/22 17:21 ABG Glucose 167 mg/dL (65-95) H 04/19/21 17:21 Oxyhemoglobin 97.2 % (95.0-99.0) 04/18/21 Unknown Carboxyhemoglobin 0.4 (0.5-1.5) L 04/19/21 17:21 FiO2 100 % 04/18/21 Unknown FiO2 % 100 04/19/21 17:21 Sodium 143 mmol/L (137-145) 04/22/21 04:49 Potassium 4.8 mmol/L (3.6-5.0) 04/22/21 04:49 Chloride 108.6 mmol/L (98-107) H 04/22/21 04:49 Carbon Dioxide 21 mmol/L (22-30) L D 04/22/21 04:49 Anion Gap 18 mmol/L 04/22/21 04:49 BUN 28 mg/dL (9-20) H 04/22/21 04:49 Creatinine 0.6 mg/dL (0.8-1.3) L 04/22/21 04:49 Estimated GFR > 60 ml/min 04/22/21 04:49 BUN/Creatinine Ratio 47 % 04/22/21 04:49 Glucose 115 mg/dL (75-100) H 04/22/21 04:49 POC Glucose 109 mg/dL (70-105) H 04/27/21 07:32 Lactic Acid 1.10 mmol/L (0.7-2.0) 04/16/21 21:18 Calcium 8.4 mg/dL (8.4-10.2) 04/22/21 04:49 Ferritin 1185.0 ng/mL (30.0-300.0) H 04/22/21 04:49 Total Bilirubin 0.80 mg/dL (0.1-1.2) 04/22/21 04:49 AST 50 units/L (5-40) H 04/22/21 04:49 ALT 53 units/L (7-56) 04/22/21 04:49 Alkaline Phosphatase 70 units/L (35-129) 04/22/21 04:49 Lactate Dehydrogenase 759 units/L (91-180) H 04/22/21 04:49 C-Reactive Protein 1.60 mg/dL (0.00-1.30) H 04/22/21 04:49 NT-Pro-B Natriuret Pep 79.47 pg/mL (0-900) 04/17/21 16:40 Total Protein 6.4 g/dL (6.3-8.2) 04/22/21 04:49 Albumin 3.1 g/dL (3.9-5) L 04/22/21 04:49 Albumin/Globulin Ratio 0.9 % 04/22/21 04:49 Procalcitonin 0.15 ng/mL (<0.15) 04/17/21 16:40 Arterial Blood Glucose 167 mg/dL (65-95) H 04/19/21 17:21 Arterial Blood Ionized Calcium 4.6 mg/dL (4.6-5.3) 04/19/21 17:21 Coronavirus (PCR) Positive (Negative) A 04/20/21 Unknown Martin/IV: Voiding Method Urinal Active Medications - Current Medications Current Medications: Generic Name Dose Route Start Last Admin Trade Name Freq PRN Reason Stop Dose Admin Acetaminophen 650 mg 04/17/21 01:45 Acetaminophen 325 Mg Tab PO Q4H PRN Pain MILD(1-3)/Fever >100.5/[place] Albuterol 2.5 mg 04/17/21 01:45 04/25/21 22:20 Albuterol 2.5 Mg/3 Ml Nebu IH 2.5 mg Q4HRT PRN Administration Shortness Of Breath Alprazolam 0.25 mg 04/17/21 22:00 04/26/21 21:07 Alprazolam 0.25 Mg Tab PO Not Given QHS DEIRDRE Ascorbic Acid 1,000 mg 04/17/21 02:00 04/27/21 09:07 Ascorbic Acid 500 Mg Tab PO 1,000 mg Q12HR DEIRDRE Administration Benzonatate 100 mg 04/17/21 06:00 04/27/21 06:42 Benzonatate 100 Mg Cap PO 100 mg Q8HR DEIRDRE Administration Cyclobenzaprine HCl 10 mg 04/17/21 01:49 04/18/21 09:28 Cyclobenzaprine 10 Mg Tab PO 10 mg TID PRN Administration Spasms Famotidine 20 mg 04/25/21 10:00 04/27/21 09:06 Famotidine 20 Mg Tab PO 20 mg BID DEIRDRE Administration Gabapentin 300 mg 04/17/21 08:00 04/27/21 09:07 Gabapentin 300 Mg Cap PO 300 mg TID DEIRDRE Administration Heparin Sodium (Porcine) 5,000 unit 04/17/21 06:00 04/27/21 06:43 Heparin 5,000 Unit/1 Ml Vial SUB-Q 5,000 unit Q8HR DEIRDRE Administration Hydralazine HCl 10 mg 04/17/21 02:00 04/22/21 19:16 Hydralazine 20 Mg/1 Ml Inj IV 10 mg Q6H PRN Administration Blood Pressure Hydromorphone HCl 0.5 mg 04/17/21 01:45 04/18/21 09:27 Hydromorphone 1 Mg/1 Ml Inj IV 0.5 mg Q3H PRN Administration Pain , Severe (7-10) Lorazepam 0.5 mg 04/21/21 08:44 04/21/21 22:18 Lorazepam 2 Mg/Ml Vial IV 0.5 mg Q4H PRN Administration Anxiety Morphine Sulfate 2 mg 04/17/21 01:45 04/26/21 20:36 Morphine 2 Mg/1 Ml Inj IV 2 mg Q4H PRN Administration Pain, Moderate (4-6) Ondansetron HCl 4 mg 04/17/21 01:45 04/18/21 07:48 Ondansetron 4 Mg/2 Ml Inj IV 4 mg Q8H PRN Administration Nausea And Vomiting Sodium Chloride 10 ml 04/17/21 10:00 04/26/21 23:00 Sodium Chloride 0.9% 10 Ml Flush Syringe IV 10 ml BID DEIRDRE Administration Sodium Chloride 10 ml 04/17/21 01:45 Sodium Chloride 0.9% 10 Ml Flush Syringe IV PRN PRN LINE FLUSH Zinc Sulfate 220 mg 04/17/21 22:00 04/27/21 09:06 Zinc Sulfate 220 Mg Cap PO 220 mg BID DEIRDRE Administration Nutrition/Malnutrition Assess - Dietary Evaluation Nutrition/Malnutrition Findings: Nutrition Notes Start: 04/24/21 17:14 Freq: Status: Active Protocol: Document 04/24/21 17:14 TEDDY (Rec: 04/24/21 17:41 TEDDY [id number]) Nutrition Notes Need for Assessment generated from: LOS Initial or Follow up Assessment Current Diagnosis Coronary Artery Disease, Hypertension,Respiratory Failure Other Pertinent Diagnosis COVID-19, Pneumonia, AHRF, ARDS, ANKUSH. Current Diet Cardiac Diet (since B 04/17). Labs/Tests 04/22: Cl 108.6, CO2 21, BUN 28, Crea 0.6, Glu 115. Pertinent Medications 04/24: Vit C, ZnSO4, others nutritionally unremarkable. Height 5 ft 8 in Weight 161 kg [place] Body Weight (kg) 70.00 BMI 53.9 Intake Prior to Admission Good Weight change and time frame None reported at admission. Weight Status Morbidly Obese Subjective/Other Information RD consult for LOS assessment. Pt's PO intake of meals is Good (75-100%), according to ADL notes. Percent of energy/protein needs met: Prescribed Cardiac Diet provides for energy/protein needs (2,230 Kcal/85 g) during LOS. Burn Absent Trauma Absent GI Symptoms None Food Allergy No Skin Integrity/Comment Clear, warm, dry. Current % PO Good (75-100%) Minimum of two criteria No Is patient on ventilator? No Is Patient Ambulatory and/or Out of Bed Yes REE-([place]-ambulatory/OOB) [ 3164.850 NUTR.[id number]] Kcal/Kg value to use for calculation 9 Approximate Energy Requirements Using 1449 kcal/Kg Calculation Used for Recommendations Kcal/kg Additional Notes Protein: 0.8-1 g/Kg; 93-116 g/ day. Fluids: 1 ml/Kcal, or as per MD. Nutrition Intervention Change Diet Order: Continue Cardiac Diet. Revisit per MD consult or patient Sign Off request: Additional Comments Continue monitoring food tolerance, %PO intake of meals , and BM.
[2021-04-27] MEDS: ACETAMINOPHEN 325 MG TAB PO PRN (21:02)
[2021-04-27] MEDS: ALPRAZolam 0.25 MG TAB PO SCH (21:02)
[2021-04-27] MEDS: MORPHINE 2 MG/1 ML INJ IV PRN (21:22)
[2021-04-28] MEDS: HEPARIN 5,000 UNIT/1 ML VIAL SUB-Q SCH (05:31)
[2021-04-28] MEDS: BENZONATATE 100 MG CAP PO SCH ×3 (05:31→22:02)
--- NOTE | 2021-04-28 09:04 | Progress Note ---
Assessment and Plan 51-year-old male with history of morbid obesity, hypertension, migraine, coronary osteoarthritis and GERD and headache was brought to the emergency room because of progressive shortness of breath. Patient has history of Covid and he was admitted last week to the hospital. He states he was sent home with oxygen however he is needed 4 L of oxygen and his shortness of breath has gotten worse when he walks his oxygen drops down to the mid 80s. He has frequent cough. Patient states he has some body aches he denies having nausea. Patient stated that he came into contact with an individual who had tested positive for COVID-19 viral infection, but he admits that he has been fully vaccinated against COVID-19 viral infection.Patient smoking, alcohol or drug history not known at this time. In the emergency room patient CT scan of the chest showed scattered groundglass opacities at the bilateral lung suggesting atypical infectious process. Patient awake. Presently on BIPAP 22/12 Rate 30, FIO2 100% and O2 saturation running 94%. Patient says breathing little better than yesterday. Patient afebrile. No leukocytosis. Patients blood pressure 152/87, pulse 59, Respirations 30. Patient is on BIPAP. /,rate 30, FIO2 100% . O2 saturation runnin 80s. Patient having increased work of breathing.Patient having bronchospasm and very anxious. vapotherm with 100% FIO2 stand by in the room. Patient afebrile. Has leukocytosis. Patients blood pressure 113/70, pulse 128, Respirations 22. Patients D dimer coming down 869.31 Patient is on Apexaban. Chest xray done 04/20/2021 reported Stable appearance of extensive bilateral pulmonary opacities. Chest xray done 04/22/2021 reported Stable appearance of severe bilateral pulmonary opacities. Venous doppler studies of both legs reported No sonographic evidence for DVT in either lower extremity. Patient ABGs ABG on 100% FIO2. ABG pH 7.480 (7.320-7.450) H 04/19/21 17:21 POC ABG pCO2 37.3 mmHg (32.0-48.0) 04/19/21 17:21 ABG pCO2 36.2 mm Hg 04/18/21 Unknown POC ABG pO2 108.6 mmHg (83-108) H 04/19/21 17:21 ABG pO2 134.6 mm Hg (80.0-90.0) H 04/18/21 Unknown POC ABG HCO3 27.2 04/19/21 17:21 ABG O2 Saturation 98.2 (0-100) 04/19/21 17:21 Patient is on Apixaban Famotidine, Albuterol/budesonide aerosol treatments. Finished course of Remdesivir. Because of increased shortness of breath and bronchospasm added I/V splumedrol. I spent critical care time of 40 minutes, review the chart, obtain history, examine the patient, review chest , CT scan of chest , review lab results, talking to the nursing staff and respiratory therapy and work up plan of treatment in this critically ill patient. - Patient Problems (1) Acute respiratory failure due to COVID-19 Current Visit: Yes Status: Acute Plan to address problem: Vapotherm FIO2 100% stand by in the room. BIPAP 28/, rate 30, FIO2 100% Started on I/V solumedrol. Finished course of Remdesivir. Continue Apixaban. ContinueFamotidine. Albuterol/budesonide aerosol treatments. (2) GERD (gastroesophageal reflux disease) Current Visit: Yes Status: Acute Plan to address problem: Patient is on Famotidine. (3) Hypertension Current Visit: Yes Status: Acute Plan to address problem: Management as per primary care. (4) Coronavirus infection Current Visit: Yes Status: Acute Plan to address problem: Patient is finished course of Remdesivir and decadron. Started on I/V solumedrol because of increased shortness of breath and Bronchospasm. Management as per infectious diseases. Patient is on Apixaban. Subjective Date of service: 04/28/21 Principal diagnosis: AHRF; ARDS; ANKUSH; COVID-19 infxn; Pneumonia; Morbid Obesity Interval history: 51-year-old male with history of morbid obesity, hypertension, migraine, coronary osteoarthritis and GERD and headache was brought to the emergency room because of progressive shortness of breath. Patient has history of Covid and he was admitted last week to the hospital. He states he was sent home with oxygen however he is needed 4 L of oxygen and his shortness of breath has gotten worse when he walks his oxygen drops down to the mid 80s. He has frequent cough. Patient states he has some body aches he denies having nausea. Patient stated that he came into contact with an individual who had tested positive for COVID-19 viral infection, but he admits that he has been fully vaccinated against COVID-19 viral infection.Patient smoking, alcohol or drug history not known at this time. In the emergency room patient CT scan of the chest showed scattered groundglass opacities at the bilateral lung suggesting atypical infectious process. Patient is on BIPAP. 09/04,rate 30, FIO2 100% . O2 saturation runnin 80s. Patient having increased work of breathing.Patient having bronchospasm and very anxious. vapotherm with 100% FIO2 stand by in the room. Patient afebrile. Has leukocytosis. Patients blood pressure 113/70, pulse 128, Respirations 22. Patients D dimer coming down 869.31 Patient is on Apexaban. Chest xray done 04/20/2021 reported Stable appearance of extensive bilateral pulmonary opacities. Chest xray done 04/22/2021 reported Stable appearance of severe bilateral pulmonary opacities. Venous doppler studies of both legs reported No sonographic evidence for DVT in either lower extremity. Patient ABGs ABG on 100% FIO2. ABG pH 7.480 (7.320-7.450) H 04/19/21 17:21 POC ABG pCO2 37.3 mmHg (32.0-48.0) 04/19/21 17: ABG pCO2 36.2 mm Hg 04/18/21 Unknown POC ABG pO2 108.6 mmHg (83-108) H 04/19/21 17:21 ABG pO2 134.6 mm Hg (80.0-90.0) H 04/18/21 Unknown POC ABG HCO3 27.2 04/19/21 17: ABG O2 Saturation 98.2 (0-100) 04/19/21 17:21 Patient is on Apixaban Famotidine, Albuterol/budesonide aerosol treatments. Finished course of Remdesivir. Because of increased shortness of breath and bronchospasm added I?V splumedrol. Objective Vital Signs - 12hr 04/27/21 04/27/21 04/27/21 21:00 21:02 21:22 Temperature Pulse Rate 96 H Pulse Rate [ From Monitor] Respiratory 37 H 18 24 Rate Blood Pressure 119/70 O2 Sat by Pulse 87 Oximetry 04/27/21 04/27/21 04/27/21 21:31 21:57 22:00 Temperature Pulse Rate 91 H 95 H 83 Pulse Rate [ From Monitor] Respiratory 24 34 H 25 H Rate Blood Pressure 119/70 119/70 116/72 O2 Sat by Pulse 95 95 96 Oximetry 04/27/21 04/27/21 04/27/21 22:31 23:00 23:31 Temperature Pulse Rate 89 85 85 Pulse Rate [ From Monitor] Respiratory 23 19 19 Rate Blood Pressure 116/72 127/67 127/67 O2 Sat by Pulse 91 92 93 Oximetry 04/28/21 04/28/21 04/28/21 00:00 00:05 00:15 Temperature 97.8 F Pulse Rate 85 79 81 Pulse Rate [ 85 From Monitor] Respiratory 33 H 19 Rate Blood Pressure 109/71 109/71 O2 Sat by Pulse 93 93 Oximetry 04/28/21 04/28/21 04/28/21 01:00 02:00 03:00 Temperature Pulse Rate 79 77 73 Pulse Rate [ From Monitor] Respiratory 22 23 25 H Rate Blood Pressure 145/67 126/63 117/71 O2 Sat by Pulse 91 95 95 Oximetry 04/28/21 04/28/21 04/28/21 04:00 04:30 05:00 Temperature 97.6 F Pulse Rate 82 78 75 Pulse Rate [ From Monitor] Respiratory 23 24 Rate Blood Pressure 108/66 103/61 O2 Sat by Pulse 95 92 Oximetry 04/28/21 04/28/21 04/28/21 06:00 07:00 08:00 Temperature Pulse Rate 76 99 H 70 Pulse Rate [ 70 From Monitor] Respiratory 23 29 H 34 H Rate Blood Pressure 120/72 138/72 111/76 O2 Sat by Pulse 98 96 92 Oximetry Constitutional: no acute distress, alert, appears uncomfortable, other (middle aged morbidly obese male with increased work of breathing on BIPAP.) Eyes: non-icteric ENT: oropharynx moist Neck: supple, no lymphadenopathy, no JVD, other (large circumference) Effort: mildly labored Ascultation: Bilateral: wheezes, rhonchi Percussion: Bilateral: not dull Cardiovascular: irregular rhythm, other (Patient tachycardic rate varies from 120 to 140.) Gastrointestinal: normoactive bowel sounds, soft, non-tender, non-distended (protuberant) Integumentary: normal Extremities: no cyanosis, pink and warm, pulses normal, no ischemia or petechiae, edema (trace) Neurologic: normal mental status, non-focal exam, pupils equal and round, CN II- XII normal Psychiatric: anxious CBC and BMP: 04/28/21 12:51 04/28/21 12:51 ABG, PT/INR, D-dimer: ABG ABG pH 7.480 (7.320-7.450) H 04/19/21 17:21 POC ABG pCO2 37.3 mmHg (32.0-48.0) 04/19/21 17: ABG pCO2 36.2 mm Hg 04/18/21 Unknown POC ABG pO2 108.6 mmHg (83-108) H 04/19/21 17: ABG pO2 134.6 mm Hg (80.0-90.0) H 04/18/21 Unknown POC ABG HCO3 27.2 04/19/21 17: ABG O2 Saturation 98.2 (0-100) 04/19/21 17:21 PT/INR, D-dimer D-Dimer 1880.44 ng/mlDDU (0-234) H 04/22/21 04:49 Abnormal lab findings: Abnormal Labs 04/16/21 04/16/21 04/17/21 21:18 21:18 16:40 WBC 3.5 L RDW Plt Count 85 L Lymph % (Auto) Haines % (Auto) Lymph # (Auto) 0.7 L Haines # (Auto) Seg Neutrophils % 74.2 H D-Dimer ABG pH POC ABG pO2 ABG pO2 ABG HCO3 ABG O2 Saturation ABG Base Excess ABG Hemoglobin ABG Oxyhemoglobin ABG Sodium ABG Chloride ABG Glucose Oxyhemoglobin Carboxyhemoglobin Sodium 132 L Chloride 93.8 L Carbon Dioxide BUN Creatinine 0.7 L Glucose 125 H POC Glucose Calcium 8.2 L Ferritin 1918.0 H AST 83 H ALT 63 H Lactate Dehydrogenase C-Reactive Protein Albumin 3.7 L Arterial Blood Glucose Arterial Blood Ionized Calcium Coronavirus (PCR) 04/17/21 04/17/21 04/17/21 16:40 16:40 16:40 WBC RDW Plt Count Lymph % (Auto) Haines % (Auto) Lymph # (Auto) Haines # (Auto) Seg Neutrophils % D-Dimer 306.45 H ABG pH POC ABG pO2 ABG pO2 ABG HCO3 ABG O2 Saturation ABG Base Excess ABG Hemoglobin ABG Oxyhemoglobin ABG Sodium ABG Chloride ABG Glucose Oxyhemoglobin Carboxyhemoglobin Sodium 135 L Chloride 96.2 L Carbon Dioxide BUN Creatinine Glucose 155 H POC Glucose Calcium Ferritin AST 72 H ALT 68 H Lactate Dehydrogenase 505 H C-Reactive Protein 16.30 H Albumin 3.5 L Arterial Blood Glucose Arterial Blood Ionized Calcium Coronavirus (PCR) 04/17/21 04/17/21 04/18/21 18:45 Unknown 03:53 WBC RDW 13.1 L Plt Count 115 L Lymph % (Auto) 13.0 L Haines % (Auto) 8.7 H Lymph # (Auto) 1.0 L Haines # (Auto) Seg Neutrophils % 78.2 H D-Dimer ABG pH POC ABG pO2 ABG pO2 56.8 L ABG HCO3 27.4 H ABG O2 Saturation 90.8 L ABG Base Excess 3.1 H ABG Hemoglobin 11.3 L 13.7 L ABG Oxyhemoglobin ABG Sodium ABG Chloride ABG Glucose Oxyhemoglobin 89.4 L Carboxyhemoglobin Sodium Chloride Carbon Dioxide BUN Creatinine Glucose POC Glucose Calcium Ferritin AST ALT Lactate Dehydrogenase C-Reactive Protein Albumin Arterial Blood Glucose Arterial Blood Ionized Calcium Coronavirus (PCR) 04/18/21 04/18/21 04/18/21 03:53 08:02 Unknown WBC RDW Plt Count Lymph % (Auto) Haines % (Auto) Lymph # (Auto) Haines # (Auto) Seg Neutrophils % D-Dimer ABG pH POC ABG pO2 ABG pO2 64.3 L 134.6 H ABG HCO3 26.9 H ABG O2 Saturation 93.6 L ABG Base Excess -3.3 L ABG Hemoglobin 11.9 L ABG Oxyhemoglobin ABG Sodium ABG Chloride ABG Glucose Oxyhemoglobin 92.3 L Carboxyhemoglobin Sodium 135 L Chloride 95.9 L Carbon Dioxide BUN Creatinine 0.7 L Glucose 149 H POC Glucose Calcium Ferritin AST 62 H ALT 59 H Lactate Dehydrogenase C-Reactive Protein Albumin 3.3 L Arterial Blood Glucose Arterial Blood Ionized Calcium Coronavirus (PCR) 04/19/21 04/19/21 04/19/21 01:37 07:28 08:44 WBC RDW Plt Count Lymph % (Auto) Haines % (Auto) Lymph # (Auto) Haines # (Auto) Seg Neutrophils % D-Dimer ABG pH POC ABG pO2 56.3 L ABG pO2 ABG HCO3 ABG O2 Saturation ABG Base Excess ABG Hemoglobin ABG Oxyhemoglobin 88.3 L ABG Sodium 132.8 L ABG Chloride 96.0 L ABG Glucose 145 H Oxyhemoglobin Carboxyhemoglobin 0.4 L Sodium Chloride 97.4 L Carbon Dioxide BUN Creatinine 0.7 L Glucose 130 H POC Glucose 135 H Calcium Ferritin AST 53 H ALT Lactate Dehydrogenase C-Reactive Protein Albumin 3.6 L Arterial Blood Glucose 145 H Arterial Blood Ionized Calcium 4.5 L Coronavirus (PCR) 04/19/21 04/19/21 04/19/21 08:44 11:30 16:53 WBC RDW 12.8 L Plt Count Lymph % (Auto) Haines % (Auto) Lymph # (Auto) Haines # (Auto) Seg Neutrophils % D-Dimer ABG pH POC ABG pO2 ABG pO2 ABG HCO3 ABG O2 Saturation ABG Base Excess ABG Hemoglobin ABG Oxyhemoglobin ABG Sodium ABG Chloride ABG Glucose Oxyhemoglobin Carboxyhemoglobin Sodium Chloride Carbon Dioxide BUN Creatinine Glucose POC Glucose 129 H 146 H Calcium Ferritin AST ALT Lactate Dehydrogenase C-Reactive Protein Albumin Arterial Blood Glucose Arterial Blood Ionized Calcium Coronavirus (PCR) 04/19/21 04/19/21 04/20/21 17:21 21:07 07:18 WBC RDW Plt Count Lymph % (Auto) Haines % (Auto) Lymph # (Auto) Haines # (Auto) Seg Neutrophils % D-Dimer ABG pH 7.480 H POC ABG pO2 108.6 H ABG pO2 ABG HCO3 ABG O2 Saturation ABG Base Excess ABG Hemoglobin ABG Oxyhemoglobin ABG Sodium 134.1 L ABG Chloride 97.0 L ABG Glucose 167 H Oxyhemoglobin Carboxyhemoglobin 0.4 L Sodium Chloride Carbon Dioxide BUN Creatinine Glucose POC Glucose 152 H 128 H Calcium Ferritin AST ALT Lactate Dehydrogenase C-Reactive Protein Albumin Arterial Blood Glucose 167 H Arterial Blood Ionized Calcium Coronavirus (PCR) 04/20/21 04/20/21 04/20/21 11:08 11:08 11:08 WBC RDW Plt Count Lymph % (Auto) Haines % (Auto) Lymph # (Auto) Haines # (Auto) Seg Neutrophils % D-Dimer 1082.55 H ABG pH POC ABG pO2 ABG pO2 ABG HCO3 ABG O2 Saturation ABG Base Excess ABG Hemoglobin ABG Oxyhemoglobin ABG Sodium ABG Chloride ABG Glucose Oxyhemoglobin Carboxyhemoglobin Sodium Chloride Carbon Dioxide BUN 26 H Creatinine Glucose 121 H POC Glucose Calcium Ferritin 1389.0 H AST 46 H ALT Lactate Dehydrogenase 647 H C-Reactive Protein 5.50 H Albumin 3.5 L Arterial Blood Glucose Arterial Blood Ionized Calcium Coronavirus (PCR) 04/20/21 04/20/21 04/20/21 11:08 16:04 21:10 WBC RDW 12.9 L Plt Count Lymph % (Auto) Haines % (Auto) 14.0 H Lymph # (Auto) Haines # (Auto) 0.9 H Seg Neutrophils % D-Dimer ABG pH POC ABG pO2 ABG pO2 ABG HCO3 ABG O2 Saturation ABG Base Excess ABG Hemoglobin ABG Oxyhemoglobin ABG Sodium ABG Chloride ABG Glucose Oxyhemoglobin Carboxyhemoglobin Sodium Chloride Carbon Dioxide BUN Creatinine Glucose POC Glucose 159 H 149 H Calcium Ferritin AST ALT Lactate Dehydrogenase C-Reactive Protein Albumin Arterial Blood Glucose Arterial Blood Ionized Calcium Coronavirus (PCR) 04/20/21 04/21/21 04/21/21 Unknown 11:34 11:34 WBC RDW 13.1 L Plt Count Lymph % (Auto) Haines % (Auto) 13.0 H Lymph # (Auto) Haines # (Auto) 1.2 H Seg Neutrophils % 70.4 H D-Dimer ABG pH POC ABG pO2 ABG pO2 ABG HCO3 ABG O2 Saturation ABG Base Excess ABG Hemoglobin ABG Oxyhemoglobin ABG Sodium ABG Chloride ABG Glucose Oxyhemoglobin Carboxyhemoglobin Sodium Chloride Carbon Dioxide BUN 27 H Creatinine Glucose 107 H POC Glucose Calcium Ferritin AST 46 H ALT Lactate Dehydrogenase C-Reactive Protein Albumin 3.4 L Arterial Blood Glucose Arterial Blood Ionized Calcium Coronavirus (PCR) Positive A 04/21/21 04/21/21 04/22/21 17:00 22:05 04:49 WBC RDW Plt Count Lymph % (Auto) 12.2 L Haines % (Auto) 10.7 H Lymph # (Auto) Haines # (Auto) 1.1 H Seg Neutrophils % 76.6 H D-Dimer ABG pH POC ABG pO2 ABG pO2 ABG HCO3 ABG O2 Saturation ABG Base Excess ABG Hemoglobin ABG Oxyhemoglobin ABG Sodium ABG Chloride ABG Glucose Oxyhemoglobin Carboxyhemoglobin Sodium Chloride Carbon Dioxide BUN Creatinine Glucose POC Glucose 138 H 133 H Calcium Ferritin AST ALT Lactate Dehydrogenase C-Reactive Protein Albumin Arterial Blood Glucose Arterial Blood Ionized Calcium Coronavirus (PCR) 04/22/21 04/22/21 04/22/21 04:49 04:49 04:49 WBC RDW Plt Count Lymph % (Auto) Haines % (Auto) Lymph # (Auto) Haines # (Auto) Seg Neutrophils % D-Dimer 1880.44 H ABG pH POC ABG pO2 ABG pO2 ABG HCO3 ABG O2 Saturation ABG Base Excess ABG Hemoglobin ABG Oxyhemoglobin ABG Sodium ABG Chloride ABG Glucose Oxyhemoglobin Carboxyhemoglobin Sodium Chloride 108.6 H Carbon Dioxide 21 L D BUN 28 H Creatinine 0.6 L Glucose 115 H POC Glucose Calcium Ferritin 1185.0 H AST 50 H ALT Lactate Dehydrogenase 759 H C-Reactive Protein 1.60 H Albumin 3.1 L Arterial Blood Glucose Arterial Blood Ionized Calcium Coronavirus (PCR) 04/22/21 04/22/21 04/23/21 16:17 22:08 21:14 WBC RDW Plt Count Lymph % (Auto) Haines % (Auto) Lymph # (Auto) Haines # (Auto) Seg Neutrophils % D-Dimer ABG pH POC ABG pO2 ABG pO2 ABG HCO3 ABG O2 Saturation ABG Base Excess ABG Hemoglobin ABG Oxyhemoglobin ABG Sodium ABG Chloride ABG Glucose Oxyhemoglobin Carboxyhemoglobin Sodium Chloride Carbon Dioxide BUN Creatinine Glucose POC Glucose 158 H 134 H 159 H Calcium Ferritin AST ALT Lactate Dehydrogenase C-Reactive Protein Albumin Arterial Blood Glucose Arterial Blood Ionized Calcium Coronavirus (PCR) 04/24/21 04/25/21 04/25/21 21:20 11:33 16:23 WBC RDW Plt Count Lymph % (Auto) Haines % (Auto) Lymph # (Auto) Haines # (Auto) Seg Neutrophils % D-Dimer ABG pH POC ABG pO2 ABG pO2 ABG HCO3 ABG O2 Saturation ABG Base Excess ABG Hemoglobin ABG Oxyhemoglobin ABG Sodium ABG Chloride ABG Glucose Oxyhemoglobin Carboxyhemoglobin Sodium Chloride Carbon Dioxide BUN Creatinine Glucose POC Glucose 161 H 126 H 176 H Calcium Ferritin AST ALT Lactate Dehydrogenase C-Reactive Protein Albumin Arterial Blood Glucose Arterial Blood Ionized Calcium Coronavirus (PCR) 04/25/21 04/26/21 04/26/21 21:06 16:26 21:26 WBC RDW Plt Count Lymph % (Auto) Haines % (Auto) Lymph # (Auto) Haines # (Auto) Seg Neutrophils % D-Dimer ABG pH POC ABG pO2 ABG pO2 ABG HCO3 ABG O2 Saturation ABG Base Excess ABG Hemoglobin ABG Oxyhemoglobin ABG Sodium ABG Chloride ABG Glucose Oxyhemoglobin Carboxyhemoglobin Sodium Chloride Carbon Dioxide BUN Creatinine Glucose POC Glucose 214 H 119 H 114 H Calcium Ferritin AST ALT Lactate Dehydrogenase C-Reactive Protein Albumin Arterial Blood Glucose Arterial Blood Ionized Calcium Coronavirus (PCR) 04/27/21 04/27/21 07:32 22:02 WBC RDW Plt Count Lymph % (Auto) Haines % (Auto) Lymph # (Auto) Haines # (Auto) Seg Neutrophils % D-Dimer ABG pH POC ABG pO2 ABG pO2 ABG HCO3 ABG O2 Saturation ABG Base Excess ABG Hemoglobin ABG Oxyhemoglobin ABG Sodium ABG Chloride ABG Glucose Oxyhemoglobin Carboxyhemoglobin Sodium Chloride Carbon Dioxide BUN Creatinine Glucose POC Glucose 109 H 127 H Calcium Ferritin AST ALT Lactate Dehydrogenase C-Reactive Protein Albumin Arterial Blood Glucose Arterial Blood Ionized Calcium Coronavirus (PCR) Chest x-ray: report reviewed, image reviewed Prior PFT's, U/S of legs: report reviewed, image reviewed Additional Studies: CHEST 1 VIEW 04/22/2021 INDICATION / CLINICAL INFORMATION: covid 19 pna. COMPARISON: 04/20/2021 FINDINGS: SUPPORT DEVICES: None. HEART / MEDIASTINUM: No significant abnormality. LUNGS / PLEURA: Severe diffuse bilateral pulmonary opacities persist without significant interval change, given slight differences in technique. No pneumothorax. ADDITIONAL FINDINGS: No significant additional findings. IMPRESSION: 1. Stable appearance of severe bilateral pulmonary opacities. Signer Name: Makeda Marte MD DUPLEX DOPPLER LOWER EXTREMITY VEINS, BILATERAL 04/24/2021 INDICATION / CLINICAL INFORMATION: Elevated D dimer.. TECHNIQUE: Duplex doppler imaging was performed through the veins of both lower extremities using venous compression and other maneuvers. COMPARISON: Bilateral lower extremity venous Doppler 04/17/2021. FINDINGS: RIGHT COMMON FEMORAL VEIN: Negative. RIGHT FEMORAL VEIN: Negative. RIGHT POPLITEAL VEIN: Negative. RIGHT CALF VEINS: Negative. LEFT COMMON FEMORAL VEIN: Negative. LEFT FEMORAL VEIN: Negative. LEFT POPLITEAL VEIN: Negative. LEFT CALF VEINS: Negative. ADDITIONAL FINDINGS: None. IMPRESSION: 1. No sonographic evidence for DVT in either lower extremity. Allied health notes reviewed: nursing
[2021-04-28] MEDS: ASCORBIC ACID 500 MG TAB PO SCH ×2 (10:10→22:02)
[2021-04-28] MEDS: FAMOTIDINE 20 MG TAB PO SCH ×2 (10:10→22:02)
[2021-04-28] MEDS: GABAPENTIN 300 MG CAP PO SCH ×3 (10:10→19:50)
[2021-04-28] MEDS: ZINC SULFATE 220 MG CAP PO SCH ×2 (10:11→22:02)
--- NOTE | 2021-04-28 10:43 | Progress Note ---
Assessment and Plan Assessment and plan: 51-year-old male with history of morbid obesity, hypertension, migraine, coronary osteoarthritis and GERD and headache was brought to the emergency room because of progressive shortness of breath. Patient has history of Covid and he was admitted last week to the hospital. He states he was sent home with oxygen however he is needed 4 L of oxygen and his shortness of breath has gotten worse when he walks his oxygen drops down to the mid 80s. Patient stated that he came into contact with an individual who had tested positive for COVID-19 viral infection, but he admits that he has been fully vaccinated against COVID-19 viral infection. In the emergency room patient CT scan of the chest showed sc attered groundglass opacities at the bilateral lung suggesting atypical infectious process. Acute hypoxic respiratory failure Severe COVID-19 pneumonia Morbid obesity 04/19/21:clinically the patient appears to be in no distress despite being on 100% fio2 bipap mask. However, ABG data looks worse, Po2: 56.3. CXR demonstrates worsened pulmonary interstitial infiltrates. Discussed case with Dr. Lagunas. Low threshold for intubation should he worsen. Patient was advised on my encounter to maintain bipap mask and not remove it. Continue therapy with decadron, remdesivir. Dc abx due to low procal. Actemra ordered. Will follow ID recs. Consult PT to continue mobilizing patient. Encouraged patient to do so in presence of care staff 04/20/2021: Remains bipap dependent. No acute changes in respiratory status. Unfortunately he is low threshold for intubation. Will follow pulmonology/ID recommendations. 04/21/2021: Remains bipap dependent. Currenlty 100%. No changes overnight. Will follow pulm/ID recs. 04/22/2021. Patient currently requiring high flow nasal cannula with 40 L O2 FiO2 of 100%. Continue dexamethasone 6 mg IV for total of 10 days with remdesivir IV x5 days. Continue to follow inflammatory markers of ferritin, D-dimer, CRP and LDH. Patient is s/p Tocilizumab. Prone positioning as able. 04/23/2021: Patient currently requiring high flow nasal cannula with 40 L O2 FiO2 of 100% and BiPAP at night. Continue dexamethasone 6 mg IV for total of 10 days with remdesivir IV x5 days. Continue to follow inflammatory markers of ferritin, D-dimer, CRP and LDH. Patient is s/p Tocilizumab. Prone positioning as able. ID and pulmonary following. 04/24/2021: Patient currently requiring high flow nasal cannula with 40 L O2 FiO2 of 90% and BiPAP at night. Continue dexamethasone 6 mg IV for total of 10 days with remdesivir IV x5 days. Continue to follow inflammatory markers of ferritin, D-dimer, CRP and LDH. Patient is s/p Tocilizumab. Prone positioning as able. ID and pulmonary following. 04/25/2021. Patient currently requiring high flow nasal cannula with 40 L O2 FiO2 of 70% and BiPAP at night. Continue dexamethasone 6 mg IV for total of 10 days with remdesivir IV x5 days. Continue to follow inflammatory markers of ferritin, D-dimer, CRP and LDH. Patient is s/p Tocilizumab. Prone positioning as able. ID and pulmonary following. 04/26/2021. Patient currently requiring high flow nasal cannula with 40 L O2 FiO2 of 80% and BiPAP at night. O2 requirement had to be increased slightly since yesterday. Continue current management. Patient is s/p Tocilizumab. The dexamethasone and remdesivir have been completed. Consider continuing steroids given the ongoing hypoxia. Defer to pulmonary. Continue to monitor inflammatory markers of ferritin, D-dimer, CRP and LDH. 04/27/2021. Patient currently requiring high flow nasal cannula with 40 L O2 FiO2 of 80% and BiPAP at night. Continue current management. Patient is s/p Tocilizumab. The dexamethasone and remdesivir have been completed. Consider continuing steroids given the ongoing hypoxia. Defer to pulmonary. Continue to monitor inflammatory markers of ferritin, D-dimer, CRP and LDH. 04/28/2021. Patient still requiring high flow nasal cannula with 40 L O2 FiO2 of 80% and BiPAP at night. Patient is s/p Tocilizumab. The dexamethasone and remdesivir have been completed. Pulmonology recommends Eliquis for increased D- dimer. However, CTA negative from 04/16/2021. Continue to trend inflammatory markers. History Interval history: No new issues overnight Hospitalist Physical - Constitutional Vitals: Temp Pulse Resp BP Pulse Ox 97.6 F 70 34 H 111/76 92 04/28/21 04:00 04/28/21 08:00 04/28/21 08:00 04/28/21 08:00 04/28/21 08:00 General appearance: Present: no acute distress, obese - EENT Eyes: Present: PERRL, EOM intact ENT: hearing intact, clear oral mucosa, dentition normal - Neck Neck: Present: supple, normal ROM - Respiratory Respiratory effort: normal Respiratory: bilateral: CTA - Cardiovascular Rhythm: regular Heart Sounds: Present: S1 & S2. Absent: gallop, rub - Extremities Extremities: no ischemia, No edema, Full ROM - Abdominal General gastrointestinal: soft, non-tender, non-distended, normal bowel sounds - Integumentary Integumentary: Present: clear, warm, dry - Neurologic Neurologic: CNII-XII intact, moves all extremities Results - Labs CBC & Chem 7: 04/22/21 04:49 04/22/21 04:49 Labs: Laboratory Last Values WBC 10.0 K/mm3 (4.5-11.0) 04/22/21 04:49 RBC 4.74 M/mm3 (3.65-5.03) 04/22/21 04:49 Hgb 13.7 gm/dl (11.8-15.2) 04/22/21 04:49 Hct 42.7 % (35.5-45.6) 04/22/21 04:49 MCV 90 fl (84-94) 04/22/21 04:49 MCH 29 pg (28-32) 04/22/21 04:49 MCHC 32 % (32-34) 04/22/21 04:49 RDW 13.2 % (13.2-15.2) 04/22/21 04:49 Plt Count 179 K/mm3 (140-440) 04/22/21 04:49 Lymph % (Auto) 12.2 % (13.4-35.0) L 04/22/21 04:49 [place] % (Auto) 10.7 % (0.0-7.3) H 04/22/21 04:49 Eos % (Auto) 0.4 % (0.0-4.3) 04/22/21 04:49 Baso % (Auto) 0.1 % (0.0-1.8) 04/22/21 04:49 Lymph # (Auto) 1.2 K/mm3 (1.2-5.4) 04/22/21 04:49 [place] # (Auto) 1.1 K/mm3 (0.0-0.8) H 04/22/21 04:49 Eos # (Auto) 0.0 K/mm3 (0.0-0.4) 04/22/21 04:49 Baso # (Auto) 0.0 K/mm3 (0.0-0.1) 04/22/21 04:49 Seg Neutrophils % 76.6 % (40.0-70.0) H 04/22/21 04:49 Seg Neutrophils # 7.7 K/mm3 (1.8-7.7) 04/22/21 04:49 D-Dimer 1880.44 ng/mlDDU (0-234) H 04/22/21 04:49 ABG pH 7.480 (7.320-7.450) H 04/19/21 17:21 POC ABG pCO2 37.3 mmHg (32.0-48.0) 04/19/21 17: ABG pCO2 36.2 mm Hg 04/18/21 Unknown POC ABG pO2 108.6 mmHg (83-108) H 04/19/21 17:21 ABG pO2 134.6 mm Hg (80.0-90.0) H 04/18/21 Unknown POC ABG HCO3 27.2 04/19/21 17: ABG HCO3 21.0 mmol/L (20.0-26.0) 04/18/21 Unknown ABG O2 Saturation 98.2 (0-100) 04/19/21 17: ABG O2 Content 22.0 (0.0-44) 04/18/21 Unknown POC ABG Base Excess 3.7 04/19/21 17: ABG Base Excess -3.3 mmol/L (-2.0-3.0) L 04/18/21 Unknown ABG Hemoglobin 14.0 (12.0-17.5) 04/19/21 17: ABG Oxyhemoglobin 97.5 (94-98) 04/19/21 17: ABG Carboxyhemoglobin 0.7 % (0.0-5.0) 04/18/21 Unknown ABG Methemoglobin 0.3 (0.0-1.5) 04/19/21 17:21 ABG Sodium 134.1 mmol/L (136.0-145.0) L 04/19/21 17:21 ABG Potassium 4.4 mmol/L (3.40-4.50) 04/19/21 17:21 ABG Chloride 97.0 mmol/L (98-107) L 04/19/21 17:21 ABG Glucose 167 mg/dL (65-95) H 04/19/21 17:21 Oxyhemoglobin 97.2 % (95.0-99.0) 04/18/21 Unknown Carboxyhemoglobin 0.4 (0.5-1.5) L 04/19/21 17:21 FiO2 100 % 04/18/21 Unknown FiO2 % 100 04/19/21 17:21 Sodium 143 mmol/L (137-145) 04/22/21 04:49 Potassium 4.8 mmol/L (3.6-5.0) 04/22/21 04:49 Chloride 108.6 mmol/L (98-107) H 04/22/21 04:49 Carbon Dioxide 21 mmol/L (22-30) L D 04/22/21 04:49 Anion Gap 18 mmol/L 04/22/21 04:49 BUN 28 mg/dL (9-20) H 04/22/21 04:49 Creatinine 0.6 mg/dL (0.8-1.3) L 04/22/21 04:49 Estimated GFR > 60 ml/min 04/22/21 04:49 BUN/Creatinine Ratio 47 % 04/22/21 04:49 Glucose 115 mg/dL (75-100) H 04/22/21 04:49 POC Glucose 93 mg/dL (70-105) 04/28/21 07:36 Lactic Acid 1.10 mmol/L (0.7-2.0) 04/16/21 21:18 Calcium 8.4 mg/dL (8.4-10.2) 04/22/21 04:49 Ferritin 1185.0 ng/mL (30.0-300.0) H 04/22/21 04:49 Total Bilirubin 0.80 mg/dL (0.1-1.2) 04/22/21 04:49 AST 50 units/L (5-40) H 04/22/21 04:49 ALT 53 units/L (7-56) 04/22/21 04:49 Alkaline Phosphatase 70 units/L (35-129) 04/22/21 04:49 Lactate Dehydrogenase 759 units/L (91-180) H 04/22/21 04:49 C-Reactive Protein 1.60 mg/dL (0.00-1.30) H 04/22/21 04:49 NT-Pro-B Natriuret Pep 79.47 pg/mL (0-900) 04/17/21 16:40 Total Protein 6.4 g/dL (6.3-8.2) 04/22/21 04:49 Albumin 3.1 g/dL (3.9-5) L 04/22/21 04:49 Albumin/Globulin Ratio 0.9 % 04/22/21 04:49 Procalcitonin 0.15 ng/mL (<0.15) 04/17/21 16:40 Arterial Blood Glucose 167 mg/dL (65-95) H 04/19/21 17:21 Arterial Blood Ionized Calcium 4.6 mg/dL (4.6-5.3) 04/19/21 17:21 Coronavirus (PCR) Positive (Negative) A 04/20/21 Unknown Martin/IV: Voiding Method Urinal Active Medications - Current Medications Current Medications: Generic Name Dose Route Start Last Admin Trade Name Freq PRN Reason Stop Dose Admin Acetaminophen 650 mg 04/17/21 01:45 04/27/21 21:02 Acetaminophen 325 Mg Tab PO 650 mg Q4H PRN Administration Pain MILD(1-3)/Fever >100.5/ALEXANDER Albuterol 2.5 mg 04/17/21 01:45 04/25/21 22:20 Albuterol 2.5 Mg/3 Ml Nebu IH 2.5 mg Q4HRT PRN Administration Shortness Of Breath Alprazolam 0.25 mg 04/17/21 22:00 04/27/21 21:02 Alprazolam 0.25 Mg Tab PO 0.25 mg QHS DEIRDRE Administration Ascorbic Acid 1,000 mg 04/17/21 02:00 04/28/21 10:10 Ascorbic Acid 500 Mg Tab PO 1,000 mg Q12HR DEIRDRE Administration Benzonatate 100 mg 04/17/21 06:00 04/28/21 05:31 Benzonatate 100 Mg Cap PO 100 mg Q8HR DEIRDRE Administration Cyclobenzaprine HCl 10 mg 04/17/21 01:49 04/18/21 09:28 Cyclobenzaprine 10 Mg Tab PO 10 mg TID PRN Administration Spasms Famotidine 20 mg 04/25/21 10:00 04/28/21 10:10 Famotidine 20 Mg Tab PO 20 mg BID DEIRDRE Administration Gabapentin 300 mg 04/17/21 08:00 04/28/21 10:10 Gabapentin 300 Mg Cap PO 300 mg TID DEIRDRE Administration Heparin Sodium (Porcine) 5,000 unit 04/17/21 06:00 04/28/21 05:31 Heparin 5,000 Unit/1 Ml Vial SUB-Q 5,000 unit Q8HR DEIRDRE Administration Hydralazine HCl 10 mg 04/17/21 02:00 04/22/21 19:16 Hydralazine 20 Mg/1 Ml Inj IV 10 mg Q6H PRN Administration Blood Pressure Hydromorphone HCl 0.5 mg 04/17/21 01:45 04/18/21 09:27 Hydromorphone 1 Mg/1 Ml Inj IV 0.5 mg Q3H PRN Administration Pain , Severe (7-10) Lorazepam 0.5 mg 04/21/21 08:44 04/21/21 22:18 Lorazepam 2 Mg/Ml Vial IV 0.5 mg Q4H PRN Administration Anxiety Morphine Sulfate 2 mg 04/17/21 01:45 04/27/21 21:22 Morphine 2 Mg/1 Ml Inj IV 2 mg Q4H PRN Administration Pain, Moderate (4-6) Ondansetron HCl 4 mg 04/17/21 01:45 04/18/21 07:48 Ondansetron 4 Mg/2 Ml Inj IV 4 mg Q8H PRN Administration Nausea And Vomiting Sodium Chloride 10 ml 04/17/21 10:00 04/28/21 10:11 Sodium Chloride 0.9% 10 Ml Flush Syringe IV 10 ml BID DEIRDRE Administration Sodium Chloride 10 ml 04/17/21 01:45 Sodium Chloride 0.9% 10 Ml Flush Syringe IV PRN PRN LINE FLUSH Zinc Sulfate 220 mg 04/17/21 22:00 04/28/21 10:11 Zinc Sulfate 220 Mg Cap PO 220 mg BID DEIRDRE Administration Nutrition/Malnutrition Assess - Dietary Evaluation Nutrition/Malnutrition Findings: Nutrition Notes Start: 04/24/21 17:14 Freq: Status: Active Protocol: Document 04/24/21 17:14 TEDDY (Rec: 04/24/21 17:41 [id number]) Nutrition Notes Need for Assessment generated from: LOS Initial or Follow up Assessment Current Diagnosis Coronary Artery Disease, Hypertension,Respiratory Failure Other Pertinent Diagnosis COVID-19, Pneumonia, AHRF, ARDS, ANKUSH. Current Diet Cardiac Diet (since B 04/17). Labs/Tests 04/22: Cl 108.6, CO2 21, BUN 28, Crea 0.6, Glu 115. Pertinent Medications 04/24: Vit C, ZnSO4, others nutritionally unremarkable. Height 5 ft 8 in Weight 161 kg [place] Body Weight (kg) 70.00 BMI 53.9 Intake Prior to Admission Good Weight change and time frame None reported at admission. Weight Status Morbidly Obese Subjective/Other Information RD consult for LOS assessment. Pt's PO intake of meals is Good (75-100%), according to ADL notes. Percent of energy/protein needs met: Prescribed Cardiac Diet provides for energy/protein needs (2,230 Kcal/85 g) during LOS. Burn Absent Trauma Absent GI Symptoms None Food Allergy No Skin Integrity/Comment Clear, warm, dry. Current % PO Good (75-100%) Minimum of two criteria No Is patient on ventilator? No Is Patient Ambulatory and/or Out of Bed Yes REE-(Mcpherson-St. Jeor-ambulatory/OOB) [ 3164.850 [id number]] Kcal/Kg value to use for calculation 9 Approximate Energy Requirements Using 1449 kcal/Kg Calculation Used for Recommendations Kcal/kg Additional Notes Protein: 0.8-1 g/Kg; 93-116 g/ day. Fluids: 1 ml/Kcal, or as per MD. Nutrition Intervention Change Diet Order: Continue Cardiac Diet. Revisit per MD consult or patient Sign Off request: Additional Comments Continue monitoring food tolerance, %PO intake of meals , and BM.
[2021-04-28 13:16] LABS: Basophils # (Auto) 0.1 K/mm3 (0.0-0.1); Basophils % (Auto) 0.5 % (0.0-1.8); Eosinophils # (Auto) 0.3 K/mm3 (0.0-0.4); Eosinophils % (Auto) 2.1 % (0.0-4.3); Hematocrit 43.6 % (35.5-45.6); Hemoglobin 14.4 gm/dl (11.8-15.2); Lymphocytes # (Auto) 1.4 K/mm3 (1.2-5.4); Lymphocytes % (Auto) 9.5 % (13.4-35.0); Mean Corpuscular HGB Conc 33 % (32-34); Mean Corpuscular Volume 87 fl (84-94); Monocytes % (Auto) 6.7 % (0.0-7.3); Platelet Count 186 K/mm3 (140-440); Red Blood Count 5.01 M/mm3 (3.65-5.03); Red Cell Distribution Width 12.8 % (13.2-15.2)
[2021-04-28] MEDS: ACETAMINOPHEN 325 MG TAB PO PRN (13:17)
[2021-04-28 13:26] LABS: INR 0.96 (0.87-1.13)
[2021-04-28 13:33] LABS: Blood Urea Nitrogen 12 mg/dL (9-20); Calcium 8.6 mg/dL (8.4-10.2); Hemolysis Index 4
[2021-04-28 13:37] LABS: BUN/Creatinine Ratio 20; C-Reactive Protein 0.6 mg/dL (0.00-1.30)
[2021-04-28] MEDS: MORPHINE 2 MG/1 ML INJ IV PRN (18:07)
[2021-04-28] MEDS: LORazepam 2 MG/ML VIAL IV PRN (19:28)
[2021-04-28] MEDS: methylPREDNISolone Sod Succinate 125 MG/2 ML INJ IV SCH (20:18)
[2021-04-28] MEDS: CYCLOBENZAPRINE 10 MG TAB PO PRN (22:02)
[2021-04-28] MEDS: APIXABAN 5 MG TAB PO SCH (22:02)
[2021-04-28] MEDS: ALPRAZolam 0.25 MG TAB PO SCH (22:03)
[2021-04-28] MEDS: HYDROmorphone 1 MG/1 ML INJ IV PRN (22:25)
[2021-04-29] MEDS: LORazepam 2 MG/ML VIAL IV PRN (02:39)
[2021-04-29] MEDS: methylPREDNISolone Sod Succinate 125 MG/2 ML INJ IV SCH ×3 (04:47→21:11)
[2021-04-29] MEDS: HYDROmorphone 1 MG/1 ML INJ IV PRN (04:48)
[2021-04-29] MEDS: BENZONATATE 100 MG CAP PO SCH ×3 (05:03→21:07)
[2021-04-29] MEDS: GABAPENTIN 300 MG CAP PO SCH ×3 (08:30→21:08)
[2021-04-29] MEDS: APIXABAN 5 MG TAB PO SCH ×2 (09:30→21:08)
[2021-04-29] MEDS: ZINC SULFATE 220 MG CAP PO SCH ×2 (09:30→21:07)
[2021-04-29] MEDS: ASCORBIC ACID 500 MG TAB PO SCH ×2 (09:30→21:07)
[2021-04-29] MEDS: FAMOTIDINE 20 MG TAB PO SCH ×2 (09:30→21:07)
--- NOTE | 2021-04-29 10:28 | Progress Note ---
Assessment and Plan Assessment and plan: HPI: 51-year-old male with history of morbid obesity, hypertension, migraine, coronary osteoarthritis and GERD and headache was brought to the emergency room because of progressive shortness of breath. Patient has history of Covid and he was admitted last week to the hospital. He states he was sent home with oxygen however he is needed 4 L of oxygen and his shortness of breath has gotten worse when he walks his oxygen drops down to the mid 80s. Patient stated that he came into contact with an individual who had tested positive for COVID-19 viral infection, but he admits that he has been fully vaccinated against COVID-19 viral infection. In the emergency room patient CT scan of the chest showed scattered groundglass opacities at the bilateral lung suggesting atypical infectious process. hospital course: 04/18/21 Patient with recently diagnosed Covid-19 04/13/21 as outpatient. Presents with shortness of breath. Now on Remdesivir, Decadron, Rocephin, Zithromax. Patient also has sleep apnea uses CPAP at home. Pulm and ID following He is currently on BIPAP 04/19/21:clinically the patient appears to be in no distress despite being on 100% fio2 bipap mask. However, ABG data looks worse, Po2: 56.3. CXR demonstrates worsened pulmonary interstitial infiltrates. Discussed case with Dr. Lagunas. Low threshold for intubation should he worsen. Patient was advised on my encounter to maintain bipap mask and not remove it. Continue therapy with decadron, remdesivir. Dc abx due to low procal. Actemra ordered. Will follow ID recs. Consult PT to continue mobilizing patient. Encouraged patient to do so in presence of care staff 04/20/2021: Remains bipap dependent. No acute changes in respiratory status. Unfortunately he is low threshold for intubation. Will follow pulmonology/ID recommendations. 04/21/2021: Remains bipap dependent. Currenlty 100%. No changes overnight. Will follow pulm/ID recs. 04/22/2021. Patient currently requiring high flow nasal cannula with 40 L O2 FiO2 of 100%. Continue dexamethasone 6 mg IV for total of 10 days with remdesivir IV x5 days. Continue to follow inflammatory markers of ferritin, D-dimer, CRP and LDH. Patient is s/p Tocilizumab. Prone positioning as able. 04/23/2021: Patient currently requiring high flow nasal cannula with 40 L O2 FiO2 of 100% and BiPAP at night. Continue dexamethasone 6 mg IV for total of 10 days with remdesivir IV x5 days. Continue to follow inflammatory markers of ferritin, D-dimer, CRP and LDH. Patient is s/p Tocilizumab. Prone positioning as able. ID and pulmonary following. 04/24/2021: Patient currently requiring high flow nasal cannula with 40 L O2 FiO2 of 90% and BiPAP at night. Continue dexamethasone 6 mg IV for total of 10 days with remdesivir IV x5 days. Continue to follow inflammatory markers of ferritin, D-dimer, CRP and LDH. Patient is s/p Tocilizumab. Prone positioning as able. ID and pulmonary following. 04/25/2021. Patient currently requiring high flow nasal cannula with 40 L O2 FiO2 of 70% and BiPAP at night. Continue dexamethasone 6 mg IV for total of 10 days with remdesivir IV x5 days. Continue to follow inflammatory markers of ferritin, D-dimer, CRP and LDH. Patient is s/p Tocilizumab. Prone positioning as able. ID and pulmonary following. 04/26/2021. Patient currently requiring high flow nasal cannula with 40 L O2 FiO2 of 80% and BiPAP at night. O2 requirement had to be increased slightly since yesterday. Continue current management. Patient is s/p Tocilizumab. The dexamethasone and remdesivir have been completed. Consider continuing steroids given the ongoing hypoxia. Defer to pulmonary. Continue to monitor inflammatory markers of ferritin, D-dimer, CRP and LDH. 04/27/2021. Patient currently requiring high flow nasal cannula with 40 L O2 FiO2 of 80% and BiPAP at night. Continue current management. Patient is s/p Tocilizumab. The dexamethasone and remdesivir have been completed. Consider continuing steroids given the ongoing hypoxia. Defer to pulmonary. Continue to monitor inflammatory markers of ferritin, D-dimer, CRP and LDH. 04/28/2021. Patient still requiring high flow nasal cannula with 40 L O2 FiO2 of 80% and BiPAP at night. Patient is s/p Tocilizumab. The dexamethasone and remdesivir have been completed. Pulmonology recommends Eliquis for increased D- dimer. However, CTA negative from 04/16/2021. Continue to trend inflammatory markers. 04/29/2021: Currently on hi flow FIo 2 80%. Remains on high dose steroids. Added budesonide to inhaler regimen. Will continue to follow for improvement. Assessment and Plan: #Acute hypoxic respiratory failure - on hi stephan nasal cannula - albuterol 2.5 IH q4hr prn #Severe COVID-19 pneumonia - decadron initiated initially, now on solumedrol 100 mg IV q8hr. - s/p tociluzimab, remdemsivir - apixaban #Morbid obesity # Anxiety - continue alprazolam # Hypertension - hydralazine prn # Neuropathy - gabapentin 300 mg po tid Dispo: IMCU The high probability of a clinically significant, sudden or life threatening deterioration of the [pulmonary, neuro] system(s) required my full and direct attention, intervention and personal management. The aggregate critical care time was [60] minutes. This time is in addition to time spent performing repor pat procedures but includes the following: [x] Data Review and interpretation [x] Patient assessment and monitoring of vital signs [x] Documentation [x] Medication orders and management History Interval history: No overnight events. Patient resting comfortably. He is please with progress. No acute complaints on encounter today. Hospitalist Physical - Physical exam Narrative exam: GENERAL: Not in acute distress, sitting up in bed, morbidly obese . on hi flow nc with overlying nrb. HEENT: Normocephalic. Atraumatic. Patient has moist mucous membranes. NECK: Supple. Trachea midline. CHEST/LUNGS: Bilateral crackles. HEART/CARDIOVASCULAR: Regular in rate and rhythm. S1 and S2 positive. ABDOMEN: Abdomen is soft, nontender. Patient has normal bowel sounds. SKIN: There is no rash. Warm and dry. NEURO: No focal motor deficit. Follows command. MUSCULOSKELETAL: No joint effusion or tenderness. EXTRIMITY: No edema, no cyanosis or clubbing. PSYCH: Cooperative. - Constitutional Vitals: Temp Pulse Resp BP Pulse Ox 98.9 F 103 H 30 H 136/79 74 L 04/29/21 08:00 04/29/21 09:01 04/29/21 09:01 04/29/21 09:15 04/29/21 09:15 General appearance: Present: no acute distress, obese Results - Labs CBC & Chem 7: 01/10/22 12:51 04/28/21 12:51 Labs: Laboratory Last Values WBC 14.9 K/mm3 (4.5-11.0) H 04/28/21 12:51 RBC 5.01 M/mm3 (3.65-5.03) 04/28/21 12:51 Hgb 14.4 gm/dl (11.8-15.2) 04/28/21 12:51 Hct 43.6 % (35.5-45.6) 04/28/21 12:51 MCV 87 fl (84-94) 04/28/21 12:51 MCH 29 pg (28-32) 04/28/21 12:51 MCHC 33 % (32-34) 04/28/21 12:51 RDW 12.8 % (13.2-15.2) L 04/28/21 12:51 Plt Count 186 K/mm3 (140-440) 04/28/21 12:51 Lymph % (Auto) 9.5 % (13.4-35.0) L 04/28/21 12:51 Preston % (Auto) 6.7 % (0.0-7.3) 04/28/21 12:51 Eos % (Auto) 2.1 % (0.0-4.3) 04/28/21 12:51 Baso % (Auto) 0.5 % (0.0-1.8) 04/28/21 12:51 Lymph # (Auto) 1.4 K/mm3 (1.2-5.4) 04/28/21 12:51 Preston # (Auto) 1.0 K/mm3 (0.0-0.8) H 04/28/21 12:51 Eos # (Auto) 0.3 K/mm3 (0.0-0.4) 04/28/21 12:51 Baso # (Auto) 0.1 K/mm3 (0.0-0.1) 04/28/21 12:51 Seg Neutrophils % 81.2 % (40.0-70.0) H 04/28/21 12:51 Seg Neutrophils # 12.1 K/mm3 (1.8-7.7) H 04/28/21 12:51 PT 13.8 Sec. (12.2-14.9) 04/28/21 12:51 INR 0.96 (0.87-1.13) 04/28/21 12:51 APTT 27.0 Sec. (24.2-36.6) 04/28/21 12:51 D-Dimer 861.39 ng/mlDDU (0-234) H 04/28/21 12:51 ABG pH 7.480 (7.320-7.450) H 04/19/21 17: POC ABG pCO2 37.3 mmHg (32.0-48.0) 04/19/21 17: ABG pCO2 36.2 mm Hg 04/18/21 Unknown POC ABG pO2 108.6 mmHg (83-108) H 04/19/21 17: ABG pO2 134.6 mm Hg (80.0-90.0) H 04/18/21 Unknown POC ABG HCO3 27.2 04/19/21 17: ABG HCO3 21.0 mmol/L (20.0-26.0) 04/18/21 Unknown ABG O2 Saturation 98.2 (0-100) 04/19/21 17: ABG O2 Content 22.0 (0.0-44) 04/18/21 Unknown POC ABG Base Excess 3.7 04/19/21: ABG Base Excess -3.3 mmol/L (-2.0-3.0) L 04/18/21 Unknown ABG Hemoglobin 14.0 (12.0-17.5) 04/19/21 17: ABG Oxyhemoglobin 97.5 (94-98) 04/19/21 17: ABG Carboxyhemoglobin 0.7 % (0.0-5.0) 04/18/21 Unknown ABG Methemoglobin 0.3 (0.0-1.5) 04/19/21: ABG Sodium 134.1 mmol/L (136.0-145.0) L 04/19/21: ABG Potassium 4.4 mmol/L (3.40-4.50) 04/19/21: ABG Chloride 97.0 mmol/L (98-107) L 04/19/21: ABG Glucose 167 mg/dL (65-95) H 04/19/21 17:21 Oxyhemoglobin 97.2 % (95.0-99.0) 04/18/21 Unknown Carboxyhemoglobin 0.4 (0.5-1.5) L 04/19/21 17:21 FiO2 100 % 04/18/21 Unknown FiO2 % 100 04/19/21 17:21 Sodium 134 mmol/L (137-145) L 04/28/21 12:51 Potassium 4.2 mmol/L (3.6-5.0) 04/28/21 12:51 Chloride 95.2 mmol/L (98-107) L 04/28/21 12:51 Carbon Dioxide 25 mmol/L (22-30) 04/28/21 12:51 Anion Gap 18 mmol/L 04/28/21 12:51 BUN 12 mg/dL (9-20) 04/28/21 12:51 Creatinine 0.6 mg/dL (0.8-1.3) L 04/28/21 12:51 Estimated GFR > 60 ml/min 04/28/21 12:51 BUN/Creatinine Ratio 20 % 04/28/21 12:51 Glucose 121 mg/dL (75-100) H 04/28/21 12:51 POC Glucose 146 mg/dL (70-105) H 04/28/21 21:17 Lactic Acid 1.10 mmol/L (0.7-2.0) 04/16/21 21:18 Calcium 8.6 mg/dL (8.4-10.2) 04/28/21 12:51 Ferritin 1009.0 ng/mL (30.0-300.0) H 04/28/21 12:51 Total Bilirubin 0.80 mg/dL (0.1-1.2) 04/22/21 04:49 AST 50 units/L (5-40) H 04/22/21 04:49 ALT 53 units/L (7-56) 04/22/21 04:49 Alkaline Phosphatase 70 units/L (35-129) 04/22/21 04:49 Lactate Dehydrogenase 769 units/L (91-180) H 04/28/21 12:51 C-Reactive Protein 0.60 mg/dL (0.00-1.30) 04/28/21 12:51 NT-Pro-B Natriuret Pep 79.47 pg/mL (0-900) 04/17/21 16:40 Total Protein 6.4 g/dL (6.3-8.2) 04/22/21 04:49 Albumin 3.1 g/dL (3.9-5) L 04/22/21 04:49 Albumin/Globulin Ratio 0.9 % 04/22/21 04:49 Procalcitonin 0.15 ng/mL (<0.15) 04/17/21 16:40 Arterial Blood Glucose 167 mg/dL (65-95) H 04/19/21 17:21 Arterial Blood Ionized Calcium 4.6 mg/dL (4.6-5.3) 04/19/21 17:21 Coronavirus (PCR) Positive (Negative) A 04/20/21 Unknown Martin/IV: Voiding Method Urinal Active Medications - Current Medications Current Medications: Generic Name Dose Route Start Last Admin Trade Name Freq PRN Reason Stop Dose Admin Acetaminophen 650 mg 04/17/21 01:45 04/28/21 13:17 Acetaminophen 325 Mg Tab PO 650 mg Q4H PRN Administration Pain MILD(1-3)/Fever >100.5/ALEXANDER Albuterol 2.5 mg 04/17/21 01:45 04/25/21 22:20 Albuterol 2.5 Mg/3 Ml Nebu IH 2.5 mg Q4HRT PRN Administration Shortness Of Breath Alprazolam 0.25 mg 04/17/21 22:00 04/28/21 22:03 Alprazolam 0.25 Mg Tab PO 0.25 mg QHS DEIRDRE Administration Apixaban 5 mg 04/28/21 22:00 04/28/21 22:02 Apixaban 5 Mg Tab PO 5 mg Q12HR DEIRDRE Administration Protocol Ascorbic Acid 1,000 mg 04/17/21 02:00 04/28/21 22:02 Ascorbic Acid 500 Mg Tab PO 1,000 mg Q12HR DEIRDRE Administration Benzonatate 100 mg 04/17/21 06:00 04/29/21 05:03 Benzonatate 100 Mg Cap PO 100 mg Q8HR DEIRDRE Administration Cyclobenzaprine HCl 10 mg 04/17/21 01:49 04/28/21 22:02 Cyclobenzaprine 10 Mg Tab PO 10 mg TID PRN Administration Spasms Famotidine 20 mg 04/25/21 10:00 04/28/21 22:02 Famotidine 20 Mg Tab PO 20 mg BID DEIRDRE Administration Gabapentin 300 mg 04/17/21 08:00 04/28/21 19:50 Gabapentin 300 Mg Cap PO 300 mg TID DEIRDRE Administration Hydralazine HCl 10 mg 04/17/21 02:00 04/22/21 19:16 Hydralazine 20 Mg/1 Ml Inj IV 10 mg Q6H PRN Administration Blood Pressure Hydromorphone HCl 0.5 mg 04/17/21 01:45 04/29/21 04:48 Hydromorphone 1 Mg/1 Ml Inj IV 0.5 mg Q3H PRN Administration Pain , Severe (7-10) Lorazepam 0.5 mg 04/21/21 08:44 04/29/21 02:39 Lorazepam 2 Mg/Ml Vial IV 0.5 mg Q4H PRN Administration Anxiety Methylprednisolone Sodium Succinate 100 mg 04/28/21 21:00 04/29/21 04:47 Methylprednisolone Sod Succinate 125 Mg/2 Ml Inj IV 100 mg Q8H DEIRDRE Administration Morphine Sulfate 2 mg 04/17/21 01:45 04/28/21 18:07 Morphine 2 Mg/1 Ml Inj IV 2 mg Q4H PRN Administration Pain, Moderate (4-6) Ondansetron HCl 4 mg 04/17/21 01:45 04/18/21 07:48 Ondansetron 4 Mg/2 Ml Inj IV 4 mg Q8H PRN Administration Nausea And Vomiting Sodium Chloride 10 ml 04/17/21 10:00 04/28/21 22:03 Sodium Chloride 0.9% 10 Ml Flush Syringe IV 10 ml BID DEIRDRE Administration Sodium Chloride 10 ml 04/17/21 01:45 Sodium Chloride 0.9% 10 Ml Flush Syringe IV PRN PRN LINE FLUSH Zinc Sulfate 220 mg 04/17/21 22:00 04/28/21 22:02 Zinc Sulfate 220 Mg Cap PO 220 mg BID DEIRDRE Administration Nutrition/Malnutrition Assess - Dietary Evaluation Nutrition/Malnutrition Findings: Nutrition Notes Start: 04/24/21 17:14 Freq: Status: Active Protocol: Document 04/24/21 17:14 TEDDY (Rec: 04/24/21 17:41 TEDDY [email or web address]) Nutrition Notes Need for Assessment generated from: LOS Initial or Follow up Assessment Current Diagnosis Coronary Artery Disease, Hypertension,Respiratory Failure Other Pertinent Diagnosis COVID-19, Pneumonia, AHRF, ARDS, ANKUSH. Current Diet Cardiac Diet (since B 04/17). Labs/Tests 04/22: Cl 108.6, CO2 21, BUN 28, Crea 0.6, Glu 115. Pertinent Medications 04/24: Vit C, ZnSO4, others nutritionally unremarkable. Height 5 ft 8 in Weight 161 kg Clifford Body Weight (kg) 70.00 BMI 53.9 Intake Prior to Admission Good Weight change and time frame None reported at admission. Weight Status Morbidly Obese Subjective/Other Information RD consult for LOS assessment. Pt's PO intake of meals is Good (75-100%), according to ADL notes. Percent of energy/protein needs met: Prescribed Cardiac Diet provides for energy/protein needs (2,230 Kcal/85 g) during LOS. Burn Absent Trauma Absent GI Symptoms None Food Allergy No Skin Integrity/Comment Clear, warm, dry. Current % PO Good (75-100%) Minimum of two criteria No Is patient on ventilator? No Is Patient Ambulatory and/or Out of Bed Yes REE-([place]-ambulatory/OOB) [ 3164.850 [id number]] Kcal/Kg value to use for calculation 9 Approximate Energy Requirements Using 1449 kcal/Kg Calculation Used for Recommendations Kcal/kg Additional Notes Protein: 0.8-1 g/Kg; 93-116 g/ day. Fluids: 1 ml/Kcal, or as per MD. Nutrition Intervention Change Diet Order: Continue Cardiac Diet. Revisit per MD consult or patient Sign Off request: Additional Comments Continue monitoring food tolerance, %PO intake of meals , and BM.
--- NOTE | 2021-04-29 19:00 | Progress Note ---
Assessment and Plan 51-year-old male with history of morbid obesity, hypertension, migraine, coronary osteoarthritis and GERD and headache was brought to the emergency room because of progressive shortness of breath. Patient has history of Covid and he was admitted last week to the hospital. He states he was sent home with oxygen however he is needed 4 L of oxygen and his shortness of breath has gotten worse when he walks his oxygen drops down to the mid 80s. He has frequent cough. Patient states he has some body aches he denies having nausea. Patient stated that he came into contact with an individual who had tested positive for COVID-19 viral infection, but he admits that he has been fully vaccinated against COVID-19 viral infection.Patient smoking, alcohol or drug history not known at this time. In the emergency room patient CT scan of the chest showed scattered groundglass opacities at the bilateral lung suggesting atypical infectious process. Patient awake. Presently on BIPAP 09/04 Rate 30, FIO2 100% and O2 saturation running 94%. Patient says breathing little better than yesterday. Patient afebrile. No leukocytosis. Patients blood pressure 152/87, pulse 59, Respirations 30. Patient is on awake and sitting comfortably in chair. On Vapotherm with 100% FIO2 stand by in the room. O2 saturation 91%. Patient afebrile. Has leukocytosis reported 04/28/2021. Patients blood pressure 141/82, pulse 110, Respirations 15. Patients D dimer coming down 869.31 Patient is on Apexaban. Chest xray done 04/20/2021 reported Stable appearance of extensive bilateral pulmonary opacities. Chest xray done 04/22/2021 reported Stable appearance of severe bilateral pulmonary opacities. Venous doppler studies of both legs reported No sonographic evidence for DVT in either lower extremity. Patient ABGs ABG on 100% FIO2. ABG pH 7.480 (7.320-7.450) H 04/19/21 17:21 POC ABG pCO2 37.3 mmHg (32.0-48.0) 04/19/21 17: ABG pCO2 36.2 mm Hg 04/18/21 Unknown POC ABG pO2 108.6 mmHg (83-108) H 04/19/21 17:21 ABG pO2 134.6 mm Hg (80.0-90.0) H 04/18/21 Unknown POC ABG HCO3 27.2 04/19/21 17:21 ABG O2 Saturation 98.2 (0-100) 04/19/21 17:21 Patient is on Apixaban Famotidine, Albuterol/budesonide aerosol treatments, benzonatate. Finished course of Remdesivir. Because of increased shortness of breath and bronchospasm added IV solumedrol. I spent critical care time of 35 minutes, review the chart, obtain history, examine the patient, review chest , CT scan of chest , review lab results, talking to the nursing staff and respiratory therapy and work up plan of treatment in this critically ill patient. - Patient Problems (1) Acute respiratory failure due to COVID-19 Current Visit: Yes Status: Acute Plan to address problem: Vapotherm FIO2 100% stand by in the room. BIPAP 28/, rate 30, FIO2 100% Started on I/V solumedrol. Finished course of Remdesivir. Continue Apixaban. Continue Famotidine. Albuterol/budesonide aerosol treatments. (2) GERD (gastroesophageal reflux disease) Current Visit: Yes Status: Acute Plan to address problem: Patient is on Famotidine. (3) Hypertension Current Visit: Yes Status: Acute Plan to address problem: Management as per primary care. (4) Coronavirus infection Current Visit: Yes Status: Acute Plan to address problem: Patient is finished course of Remdesivir and decadron. Started on I/V solumedrol because of increased shortness of breath and Bronchospasm. Management as per infectious diseases. Patient is on Apixaban. Subjective Date of service: 04/29/21 Principal diagnosis: AHRF; ARDS; ANKUSH; COVID-19 infxn; Pneumonia; Morbid Obesity Interval history: 51-year-old male with history of morbid obesity, hypertension, migraine, coronary osteoarthritis and GERD and headache was brought to the emergency room because of progressive shortness of breath. Patient has history of Covid and he was admitted last week to the hospital. He states he was sent home with oxygen however he is needed 4 L of oxygen and his shortness of breath has gotten worse when he walks his oxygen drops down to the mid 80s. He has frequent cough. Patient states he has some body aches he denies having nausea. Patient stated that he came into contact with an individual who had tested positive for COVID-19 viral infection, but he admits that he has been fully vaccinated against COVID-19 viral infection.Patient smoking, alcohol or drug history not known at this time. In the emergency room patient CT scan of the chest showed scattered groundglass opacities at the bilateral lung suggesting atypical infectious process. Patient is on awake and sitting comfortably in chair. On Vapotherm with 100% FIO2 stand by in the room. O2 saturation 91%. Patient afebrile. Has leukocytosis reported 04/28/2021. Patients blood pressure 141/82, pulse 110, Respirations 15. Patients D dimer coming down 869.31 Patient is on Apexaban. Chest xray done 04/20/2021 reported Stable appearance of extensive bilateral pulmonary opacities. Chest xray done 04/22/2021 reported Stable appearance of severe bilateral pulmonary opacities. Venous doppler studies of both legs reported No sonographic evidence for DVT in either lower extremity. Patient ABGs ABG on 100% FIO2. ABG pH 7.480 (7.320-7.450) H 04/19/21 17:21 POC ABG pCO2 37.3 mmHg (32.0-48.0) 04/19/21 17:21 ABG pCO2 36.2 mm Hg 04/18/21 Unknown POC ABG pO2 108.6 mmHg (83-108) H 04/19/21 17:21 ABG pO2 134.6 mm Hg (80.0-90.0) H 04/18/21 Unknown POC ABG HCO3 27.2 04/19/21 17:21 ABG O2 Saturation 98.2 (0-100) 04/19/21 17:21 Patient is on Apixaban Famotidine, Albuterol/budesonide aerosol treatments, benzonatate. Finished course of Remdesivir. Because of increased shortness of breath and bronchospasm added IV solumedrol. Objective Vital Signs - 12hr 04/29/21 04/29/21 04/29/21 07:00 07:15 07:31 Temperature Pulse Rate 77 79 84 Respiratory 22 27 H 25 H Rate Blood Pressure 124/72 124/72 124/72 O2 Sat by Pulse 89 87 87 Oximetry 04/29/21 04/29/21 04/29/21 07:45 08:00 08:15 Temperature 98.9 F Pulse Rate 83 98 H 92 H Respiratory 29 H 32 H 24 Rate Blood Pressure 124/72 123/83 123/83 O2 Sat by Pulse 85 85 90 Oximetry 04/29/21 04/29/21 04/29/21 08:31 08:45 08:48 Temperature Pulse Rate 99 H Respiratory 25 H Rate Blood Pressure 123/83 123/83 O2 Sat by Pulse 91 88 92 Oximetry 04/29/21 04/29/21 04/29/21 09:01 09:15 09:30 Temperature Pulse Rate 103 H Respiratory 30 H Rate Blood Pressure 136/79 136/79 136/79 O2 Sat by Pulse 85 74 L 88 Oximetry 04/29/21 04/29/21 04/29/21 09:45 10:00 10:15 Temperature Pulse Rate 95 H 105 H 95 H Respiratory 18 20 26 H Rate Blood Pressure 136/79 139/81 139/81 O2 Sat by Pulse 91 90 91 Oximetry 04/29/21 04/29/21 04/29/21 10:30 10:45 11:00 Temperature Pulse Rate 95 H 96 H 95 H Respiratory 25 H 30 H 29 H Rate Blood Pressure 139/81 139/81 139/81 O2 Sat by Pulse 90 88 88 Oximetry 04/29/21 04/29/21 04/29/21 11:15 11:31 11:45 Temperature Pulse Rate 77 95 H 101 H Respiratory 16 23 20 Rate Blood Pressure 142/90 142/90 142/90 O2 Sat by Pulse 89 91 87 Oximetry 04/29/21 04/29/21 04/29/21 12:00 12:15 12:31 Temperature 98.5 F Pulse Rate 94 H 103 H 113 H Respiratory 23 16 33 H Rate Blood Pressure 148/83 148/83 148/83 O2 Sat by Pulse 87 87 84 Oximetry 04/29/21 04/29/21 04/29/21 12:45 13:00 13:15 Temperature Pulse Rate Respiratory Rate Blood Pressure 148/83 137/86 137/86 O2 Sat by Pulse 86 92 91 Oximetry 04/29/21 04/29/21 04/29/21 13:31 13:45 14:00 Temperature Pulse Rate 100 H 104 H Respiratory 30 H 31 H Rate Blood Pressure 137/86 137/86 151/84 O2 Sat by Pulse 92 93 90 Oximetry 04/29/21 04/29/21 04/29/21 14:15 14:31 14:45 Temperature Pulse Rate 110 H 109 H 105 H Respiratory 31 H 22 24 Rate Blood Pressure 151/84 151/84 151/84 O2 Sat by Pulse 87 92 92 Oximetry 04/29/21 04/29/21 04/29/21 15:01 15:15 15:31 Temperature Pulse Rate 102 H 106 H 95 H Respiratory 17 21 35 H Rate Blood Pressure 153/89 153/89 153/89 O2 Sat by Pulse 92 84 87 Oximetry 04/29/21 04/29/21 04/29/21 15:45 16:00 16:15 Temperature 99.2 F Pulse Rate 89 89 124 H Respiratory 33 H 28 H 37 H Rate Blood Pressure 153/89 150/85 150/85 O2 Sat by Pulse 91 90 86 Oximetry 04/29/21 04/29/21 04/29/21 16:31 16:45 17:01 Temperature Pulse Rate 86 84 111 H Respiratory 31 H 23 37 H Rate Blood Pressure 150/85 150/85 146/91 O2 Sat by Pulse 91 89 82 L Oximetry 04/29/21 04/29/21 04/29/21 17:15 17:31 17:45 Temperature Pulse Rate 104 H 87 106 H Respiratory 21 24 30 H Rate Blood Pressure 146/91 146/91 146/91 O2 Sat by Pulse 92 89 92 Oximetry 04/29/21 04/29/21 18:00 18:15 Temperature Pulse Rate 118 H 111 H Respiratory 34 H 22 Rate Blood Pressure 157/90 157/90 O2 Sat by Pulse 83 L 90 Oximetry Constitutional: alert, appears uncomfortable, other (middle aged morbidly obese male) Eyes: non-icteric ENT: oropharynx moist Neck: supple, no lymphadenopathy, no JVD, other (large circumference) Effort: mildly labored Ascultation: Bilateral: diminished breath sounds, wheezes, rhonchi Percussion: Bilateral: not dull Cardiovascular: irregular rhythm, other (Patient tachycardic rate varies from 120 to 140.) Gastrointestinal: normoactive bowel sounds, soft, non-tender, non-distended (protuberant) Integumentary: normal Extremities: no cyanosis, pink and warm, pulses normal, no ischemia or petechiae, edema (trace) Neurologic: normal mental status, non-focal exam, pupils equal and round, CN II- XII normal Psychiatric: anxious CBC and BMP: 04/30/21 04:59 04/30/21 04:59 ABG, PT/INR, D-dimer: ABG ABG pH 7.480 (7.320-7.450) H 04/19/21 17:21 POC ABG pCO2 37.3 mmHg (32.0-48.0) 04/19/21 17: ABG pCO2 36.2 mm Hg 04/18/21 Unknown POC ABG pO2 108.6 mmHg (83-108) H 04/19/21 17: ABG pO2 134.6 mm Hg (80.0-90.0) H 04/18/21 Unknown POC ABG HCO3 27.2 04/19/21 17: ABG O2 Saturation 98.2 (0-100) 04/19/21 17:21 PT/INR, D-dimer PT 13.8 Sec. (12.2-14.9) 04/28/21 12:51 INR 0.96 (0.87-1.13) 04/28/21 12:51 D-Dimer 861.39 ng/mlDDU (0-234) H 04/28/21 12:51 Abnormal lab findings: Abnormal Labs 04/16/21 04/16/21 04/17/21 21:18 21:18 16:40 WBC 3.5 L RDW Plt Count 85 L Lymph % (Auto) Cassia % (Auto) Lymph # (Auto) 0.7 L Cassia # (Auto) Seg Neutrophils % 74.2 H Seg Neutrophils # D-Dimer ABG pH POC ABG pO2 ABG pO2 ABG HCO3 ABG O2 Saturation ABG Base Excess ABG Hemoglobin ABG Oxyhemoglobin ABG Sodium ABG Chloride ABG Glucose Oxyhemoglobin Carboxyhemoglobin Sodium 132 L Chloride 93.8 L Carbon Dioxide BUN Creatinine 0.7 L Glucose 125 H POC Glucose Calcium 8.2 L Ferritin 1918.0 H AST 83 H ALT 63 H Lactate Dehydrogenase C-Reactive Protein Albumin 3.7 L Arterial Blood Glucose Arterial Blood Ionized Calcium Coronavirus (PCR) 04/17/21 04/17/21 04/17/21 16:40 16:40 16:40 WBC RDW Plt Count Lymph % (Auto) Cassia % (Auto) Lymph # (Auto) Cassia # (Auto) Seg Neutrophils % Seg Neutrophils # D-Dimer 306.45 H ABG pH POC ABG pO2 ABG pO2 ABG HCO3 ABG O2 Saturation ABG Base Excess ABG Hemoglobin ABG Oxyhemoglobin ABG Sodium ABG Chloride ABG Glucose Oxyhemoglobin Carboxyhemoglobin Sodium 135 L Chloride 96.2 L Carbon Dioxide BUN Creatinine Glucose 155 H POC Glucose Calcium Ferritin AST 72 H ALT 68 H Lactate Dehydrogenase 505 H C-Reactive Protein 16.30 H Albumin 3.5 L Arterial Blood Glucose Arterial Blood Ionized Calcium Coronavirus (PCR) 04/17/21 04/17/21 04/18/21 18:45 Unknown 03:53 WBC RDW 13.1 L Plt Count 115 L Lymph % (Auto) 13.0 L Cassia % (Auto) 8.7 H Lymph # (Auto) 1.0 L Cassia # (Auto) Seg Neutrophils % 78.2 H Seg Neutrophils # D-Dimer ABG pH POC ABG pO2 ABG pO2 56.8 L ABG HCO3 27.4 H ABG O2 Saturation 90.8 L ABG Base Excess 3.1 H ABG Hemoglobin 11.3 L 13.7 L ABG Oxyhemoglobin ABG Sodium ABG Chloride ABG Glucose Oxyhemoglobin 89.4 L Carboxyhemoglobin Sodium Chloride Carbon Dioxide BUN Creatinine Glucose POC Glucose Calcium Ferritin AST ALT Lactate Dehydrogenase C-Reactive Protein Albumin Arterial Blood Glucose Arterial Blood Ionized Calcium Coronavirus (PCR) 04/18/21 04/18/21 04/18/21 03:53 08:02 Unknown WBC RDW Plt Count Lymph % (Auto) Cassia % (Auto) Lymph # (Auto) Cassia # (Auto) Seg Neutrophils % Seg Neutrophils # D-Dimer ABG pH POC ABG pO2 ABG pO2 64.3 L 134.6 H ABG HCO3 26.9 H ABG O2 Saturation 93.6 L ABG Base Excess -3.3 L ABG Hemoglobin 11.9 L ABG Oxyhemoglobin ABG Sodium ABG Chloride ABG Glucose Oxyhemoglobin 92.3 L Carboxyhemoglobin Sodium 135 L Chloride 95.9 L Carbon Dioxide BUN Creatinine 0.7 L Glucose 149 H POC Glucose Calcium Ferritin AST 62 H ALT 59 H Lactate Dehydrogenase C-Reactive Protein Albumin 3.3 L Arterial Blood Glucose Arterial Blood Ionized Calcium Coronavirus (PCR) 04/19/21 04/19/21 04/19/21 01:37 07:28 08:44 WBC RDW Plt Count Lymph % (Auto) Cassia % (Auto) Lymph # (Auto) Cassia # (Auto) Seg Neutrophils % Seg Neutrophils # D-Dimer ABG pH POC ABG pO2 56.3 L ABG pO2 ABG HCO3 ABG O2 Saturation ABG Base Excess ABG Hemoglobin ABG Oxyhemoglobin 88.3 L ABG Sodium 132.8 L ABG Chloride 96.0 L ABG Glucose 145 H Oxyhemoglobin Carboxyhemoglobin 0.4 L Sodium Chloride 97.4 L Carbon Dioxide BUN Creatinine 0.7 L Glucose 130 H POC Glucose 135 H Calcium Ferritin AST 53 H ALT Lactate Dehydrogenase C-Reactive Protein Albumin 3.6 L Arterial Blood Glucose 145 H Arterial Blood Ionized Calcium 4.5 L Coronavirus (PCR) 04/19/21 04/19/21 04/19/21 08:44 11:30 16:53 WBC RDW 12.8 L Plt Count Lymph % (Auto) Cassia % (Auto) Lymph # (Auto) Cassia # (Auto) Seg Neutrophils % Seg Neutrophils # D-Dimer ABG pH POC ABG pO2 ABG pO2 ABG HCO3 ABG O2 Saturation ABG Base Excess ABG Hemoglobin ABG Oxyhemoglobin ABG Sodium ABG Chloride ABG Glucose Oxyhemoglobin Carboxyhemoglobin Sodium Chloride Carbon Dioxide BUN Creatinine Glucose POC Glucose 129 H 146 H Calcium Ferritin AST ALT Lactate Dehydrogenase C-Reactive Protein Albumin Arterial Blood Glucose Arterial Blood Ionized Calcium Coronavirus (PCR) 04/19/21 04/19/21 04/20/21 17:21 21:07 07:18 WBC RDW Plt Count Lymph % (Auto) Cassia % (Auto) Lymph # (Auto) Cassia # (Auto) Seg Neutrophils % Seg Neutrophils # D-Dimer ABG pH 7.480 H POC ABG pO2 108.6 H ABG pO2 ABG HCO3 ABG O2 Saturation ABG Base Excess ABG Hemoglobin ABG Oxyhemoglobin ABG Sodium 134.1 L ABG Chloride 97.0 L ABG Glucose 167 H Oxyhemoglobin Carboxyhemoglobin 0.4 L Sodium Chloride Carbon Dioxide BUN Creatinine Glucose POC Glucose 152 H 128 H Calcium Ferritin AST ALT Lactate Dehydrogenase C-Reactive Protein Albumin Arterial Blood Glucose 167 H Arterial Blood Ionized Calcium Coronavirus (PCR) 04/20/21 04/20/21 04/20/21 11:08 11:08 11:08 WBC RDW Plt Count Lymph % (Auto) Cassia % (Auto) Lymph # (Auto) Cassia # (Auto) Seg Neutrophils % Seg Neutrophils # D-Dimer 1082.55 H ABG pH POC ABG pO2 ABG pO2 ABG HCO3 ABG O2 Saturation ABG Base Excess ABG Hemoglobin ABG Oxyhemoglobin ABG Sodium ABG Chloride ABG Glucose Oxyhemoglobin Carboxyhemoglobin Sodium Chloride Carbon Dioxide BUN 26 H Creatinine Glucose 121 H POC Glucose Calcium Ferritin 1389.0 H AST 46 H ALT Lactate Dehydrogenase 647 H C-Reactive Protein 5.50 H Albumin 3.5 L Arterial Blood Glucose Arterial Blood Ionized Calcium Coronavirus (PCR) 04/20/21 04/20/21 04/20/21 11:08 16:04 21:10 WBC RDW 12.9 L Plt Count Lymph % (Auto) Cassia % (Auto) 14.0 H Lymph # (Auto) Cassia # (Auto) 0.9 H Seg Neutrophils % Seg Neutrophils # D-Dimer ABG pH POC ABG pO2 ABG pO2 ABG HCO3 ABG O2 Saturation ABG Base Excess ABG Hemoglobin ABG Oxyhemoglobin ABG Sodium ABG Chloride ABG Glucose Oxyhemoglobin Carboxyhemoglobin Sodium Chloride Carbon Dioxide BUN Creatinine Glucose POC Glucose 159 H 149 H Calcium Ferritin AST ALT Lactate Dehydrogenase C-Reactive Protein Albumin Arterial Blood Glucose Arterial Blood Ionized Calcium Coronavirus (PCR) 04/20/21 04/21/21 04/21/21 Unknown 11:34 11:34 WBC RDW 13.1 L Plt Count Lymph % (Auto) Cassia % (Auto) 13.0 H Lymph # (Auto) Cassia # (Auto) 1.2 H Seg Neutrophils % 70.4 H Seg Neutrophils # D-Dimer ABG pH POC ABG pO2 ABG pO2 ABG HCO3 ABG O2 Saturation ABG Base Excess ABG Hemoglobin ABG Oxyhemoglobin ABG Sodium ABG Chloride ABG Glucose Oxyhemoglobin Carboxyhemoglobin Sodium Chloride Carbon Dioxide BUN 27 H Creatinine Glucose 107 H POC Glucose Calcium Ferritin AST 46 H ALT Lactate Dehydrogenase C-Reactive Protein Albumin 3.4 L Arterial Blood Glucose Arterial Blood Ionized Calcium Coronavirus (PCR) Positive A 04/21/21 04/21/21 04/22/21 17:00 22:05 04:49 WBC RDW Plt Count Lymph % (Auto) 12.2 L Cassia % (Auto) 10.7 H Lymph # (Auto) Cassia # (Auto) 1.1 H Seg Neutrophils % 76.6 H Seg Neutrophils # D-Dimer ABG pH POC ABG pO2 ABG pO2 ABG HCO3 ABG O2 Saturation ABG Base Excess ABG Hemoglobin ABG Oxyhemoglobin ABG Sodium ABG Chloride ABG Glucose Oxyhemoglobin Carboxyhemoglobin Sodium Chloride Carbon Dioxide BUN Creatinine Glucose POC Glucose 138 H 133 H Calcium Ferritin AST ALT Lactate Dehydrogenase C-Reactive Protein Albumin Arterial Blood Glucose Arterial Blood Ionized Calcium Coronavirus (PCR) 04/22/21 04/22/21 04/22/21 04:49 04:49 04:49 WBC RDW Plt Count Lymph % (Auto) Cassia % (Auto) Lymph # (Auto) Cassia # (Auto) Seg Neutrophils % Seg Neutrophils # D-Dimer 1880.44 H ABG pH POC ABG pO2 ABG pO2 ABG HCO3 ABG O2 Saturation ABG Base Excess ABG Hemoglobin ABG Oxyhemoglobin ABG Sodium ABG Chloride ABG Glucose Oxyhemoglobin Carboxyhemoglobin Sodium Chloride 108.6 H Carbon Dioxide 21 L D BUN 28 H Creatinine 0.6 L Glucose 115 H POC Glucose Calcium Ferritin 1185.0 H AST 50 H ALT Lactate Dehydrogenase 759 H C-Reactive Protein 1.60 H Albumin 3.1 L Arterial Blood Glucose Arterial Blood Ionized Calcium Coronavirus (PCR) 04/22/21 04/22/21 04/23/21 16:17 22:08 21:14 WBC RDW Plt Count Lymph % (Auto) Cassia % (Auto) Lymph # (Auto) Cassia # (Auto) Seg Neutrophils % Seg Neutrophils # D-Dimer ABG pH POC ABG pO2 ABG pO2 ABG HCO3 ABG O2 Saturation ABG Base Excess ABG Hemoglobin ABG Oxyhemoglobin ABG Sodium ABG Chloride ABG Glucose Oxyhemoglobin Carboxyhemoglobin Sodium Chloride Carbon Dioxide BUN Creatinine Glucose POC Glucose 158 H 134 H 159 H Calcium Ferritin AST ALT Lactate Dehydrogenase C-Reactive Protein Albumin Arterial Blood Glucose Arterial Blood Ionized Calcium Coronavirus (PCR) 04/24/21 04/25/21 04/25/21 21:20 11:33 16:23 WBC RDW Plt Count Lymph % (Auto) Cassia % (Auto) Lymph # (Auto) Cassia # (Auto) Seg Neutrophils % Seg Neutrophils # D-Dimer ABG pH POC ABG pO2 ABG pO2 ABG HCO3 ABG O2 Saturation ABG Base Excess ABG Hemoglobin ABG Oxyhemoglobin ABG Sodium ABG Chloride ABG Glucose Oxyhemoglobin Carboxyhemoglobin Sodium Chloride Carbon Dioxide BUN Creatinine Glucose POC Glucose 161 H 126 H 176 H Calcium Ferritin AST ALT Lactate Dehydrogenase C-Reactive Protein Albumin Arterial Blood Glucose Arterial Blood Ionized Calcium Coronavirus (PCR) 04/25/21 04/26/21 04/26/21 21:06 16:26 21:26 WBC RDW Plt Count Lymph % (Auto) Cassia % (Auto) Lymph # (Auto) Cassia # (Auto) Seg Neutrophils % Seg Neutrophils # D-Dimer ABG pH POC ABG pO2 ABG pO2 ABG HCO3 ABG O2 Saturation ABG Base Excess ABG Hemoglobin ABG Oxyhemoglobin ABG Sodium ABG Chloride ABG Glucose Oxyhemoglobin Carboxyhemoglobin Sodium Chloride Carbon Dioxide BUN Creatinine Glucose POC Glucose 214 H 119 H 114 H Calcium Ferritin AST ALT Lactate Dehydrogenase C-Reactive Protein Albumin Arterial Blood Glucose Arterial Blood Ionized Calcium Coronavirus (PCR) 04/27/21 04/27/21 04/28/21 07:32 22:02 12:51 WBC 14.9 H RDW 12.8 L Plt Count Lymph % (Auto) 9.5 L Cassia % (Auto) Lymph # (Auto) Cassia # (Auto) 1.0 H Seg Neutrophils % 81.2 H Seg Neutrophils # 12.1 H D-Dimer ABG pH POC ABG pO2 ABG pO2 ABG HCO3 ABG O2 Saturation ABG Base Excess ABG Hemoglobin ABG Oxyhemoglobin ABG Sodium ABG Chloride ABG Glucose Oxyhemoglobin Carboxyhemoglobin Sodium Chloride Carbon Dioxide BUN Creatinine Glucose POC Glucose 109 H 127 H Calcium Ferritin AST ALT Lactate Dehydrogenase C-Reactive Protein Albumin Arterial Blood Glucose Arterial Blood Ionized Calcium Coronavirus (PCR) 04/28/21 04/28/21 04/28/21 12:51 12:51 12:51 WBC RDW Plt Count Lymph % (Auto) Cassia % (Auto) Lymph # (Auto) Cassia # (Auto) Seg Neutrophils % Seg Neutrophils # D-Dimer 861.39 H ABG pH POC ABG pO2 ABG pO2 ABG HCO3 ABG O2 Saturation ABG Base Excess ABG Hemoglobin ABG Oxyhemoglobin ABG Sodium ABG Chloride ABG Glucose Oxyhemoglobin Carboxyhemoglobin Sodium 134 L Chloride 95.2 L Carbon Dioxide BUN Creatinine 0.6 L Glucose 121 H POC Glucose Calcium Ferritin AST ALT Lactate Dehydrogenase 769 H C-Reactive Protein Albumin Arterial Blood Glucose Arterial Blood Ionized Calcium Coronavirus (PCR) 04/28/21 04/28/21 04/28/21 12:51 16:59 21:17 WBC RDW Plt Count Lymph % (Auto) Cassia % (Auto) Lymph # (Auto) Cassia # (Auto) Seg Neutrophils % Seg Neutrophils # D-Dimer ABG pH POC ABG pO2 ABG pO2 ABG HCO3 ABG O2 Saturation ABG Base Excess ABG Hemoglobin ABG Oxyhemoglobin ABG Sodium ABG Chloride ABG Glucose Oxyhemoglobin Carboxyhemoglobin Sodium Chloride Carbon Dioxide BUN Creatinine Glucose POC Glucose 124 H 146 H Calcium Ferritin 1009.0 H AST ALT Lactate Dehydrogenase C-Reactive Protein Albumin Arterial Blood Glucose Arterial Blood Ionized Calcium Coronavirus (PCR) Allied health notes reviewed: nursing
[2021-04-29] MEDS: ALPRAZolam 0.25 MG TAB PO SCH (21:08)
[2021-04-29] MEDS: BUDESONIDE 0.5 MG/2 ML NEBU IH SCH (21:14)
[2021-04-30] MEDS: methylPREDNISolone Sod Succinate 125 MG/2 ML INJ IV SCH ×3 (04:23→21:49)
[2021-04-30 05:12] LABS: Hematocrit 43.2 % (35.5-45.6); Hemoglobin 13.9 gm/dl (11.8-15.2); Mean Corpuscular HGB Conc 32 % (32-34); Mean Corpuscular Volume 89 fl (84-94); Platelet Count 222 K/mm3 (140-440); Red Blood Count 4.84 M/mm3 (3.65-5.03); Red Cell Distribution Width 13.2 % (13.2-15.2)
[2021-04-30 05:42] LABS: Alanine Aminotransferase 68 units/L (7-56); Albumin 3.8 g/dL (3.9-5); Blood Urea Nitrogen 14 mg/dL (9-20); Calcium 9.5 mg/dL (8.4-10.2); Hemolysis Index 8
[2021-04-30 05:44] LABS: BUN/Creatinine Ratio 23
[2021-04-30] MEDS: BENZONATATE 100 MG CAP PO SCH ×3 (05:47→21:17)
[2021-04-30 07:05] LABS: Total Cells Counted 100
[2021-04-30 07:06] LABS: Band Neutrophils # (Manual) 1.2 K/mm3; Basophils % (Manual) 0 % (0.0-1.8); Eosinophils % (Manual) 0 % (0.0-4.3); Myelocytes # (Manual) 0.3 K/mm3
[2021-04-30 07:07] LABS: RBC Morphology Normal
--- NOTE | 2021-04-30 09:16 | Progress Note ---
Assessment and Plan Assessment and plan: HPI: 51-year-old male with history of morbid obesity, hypertension, migraine, coronary osteoarthritis and GERD and headache was brought to the emergency room because of progressive shortness of breath. Patient has history of Covid and he was admitted last week to the hospital. He states he was sent home with oxygen however he is needed 4 L of oxygen and his shortness of breath has gotten worse when he walks his oxygen drops down to the mid 80s. Patient stated that he came into contact with an individual who had tested positive for COVID-19 viral infection, but he admits that he has been fully vaccinated against COVID-19 viral infection. In the emergency room patient CT scan of the chest showed scattered groundglass opacities at the bilateral lung suggesting atypical infectious process. hospital course: 04/18/21 Patient with recently diagnosed Covid-19 04/13/21 as outpatient. Presents with shortness of breath. Now on Remdesivir, Decadron, Rocephin, Zithromax. Patient also has sleep apnea uses CPAP at home. Pulm and ID following He is currently on BIPAP 04/19/21:clinically the patient appears to be in no distress despite being on 100% fio2 bipap mask. However, ABG data looks worse, Po2: 56.3. CXR demonstrates worsened pulmonary interstitial infiltrates. Discussed case with Dr. Lagunas. Low threshold for intubation should he worsen. Patient was advised on my encounter to maintain bipap mask and not remove it. Continue therapy with decadron, remdesivir. Dc abx due to low procal. Actemra ordered. Will follow ID recs. Consult PT to continue mobilizing patient. Encouraged patient to do so in presence of care staff 04/20/2021: Remains bipap dependent. No acute changes in respiratory status. Unfortunately he is low threshold for intubation. Will follow pulmonology/ID recommendations. 04/21/2021: Remains bipap dependent. Currenlty 100%. No changes overnight. Will follow pulm/ID recs. 04/22/2021. Patient currently requiring high flow nasal cannula with 40 L O2 FiO2 of 100%. Continue dexamethasone 6 mg IV for total of 10 days with remdesivir IV x5 days. Continue to follow inflammatory markers of ferritin, D-dimer, CRP and LDH. Patient is s/p Tocilizumab. Prone positioning as able. 04/23/2021: Patient currently requiring high flow nasal cannula with 40 L O2 FiO2 of 100% and BiPAP at night. Continue dexamethasone 6 mg IV for total of 10 days with remdesivir IV x5 days. Continue to follow inflammatory markers of ferritin, D-dimer, CRP and LDH. Patient is s/p Tocilizumab. Prone positioning as able. ID and pulmonary following. 04/24/2021: Patient currently requiring high flow nasal cannula with 40 L O2 FiO2 of 90% and BiPAP at night. Continue dexamethasone 6 mg IV for total of 10 days with remdesivir IV x5 days. Continue to follow inflammatory markers of ferritin, D-dimer, CRP and LDH. Patient is s/p Tocilizumab. Prone positioning as able. ID and pulmonary following. 04/25/2021. Patient currently requiring high flow nasal cannula with 40 L O2 FiO2 of 70% and BiPAP at night. Continue dexamethasone 6 mg IV for total of 10 days with remdesivir IV x5 days. Continue to follow inflammatory markers of ferritin, D-dimer, CRP and LDH. Patient is s/p Tocilizumab. Prone positioning as able. ID and pulmonary following. 04/26/2021. Patient currently requiring high flow nasal cannula with 40 L O2 FiO2 of 80% and BiPAP at night. O2 requirement had to be increased slightly since yesterday. Continue current management. Patient is s/p Tocilizumab. The dexamethasone and remdesivir have been completed. Consider continuing steroids given the ongoing hypoxia. Defer to pulmonary. Continue to monitor inflammatory markers of ferritin, D-dimer, CRP and LDH. 04/27/2021. Patient currently requiring high flow nasal cannula with 40 L O2 FiO2 of 80% and BiPAP at night. Continue current management. Patient is s/p Tocilizumab. The dexamethasone and remdesivir have been completed. Consider continuing steroids given the ongoing hypoxia. Defer to pulmonary. Continue to monitor inflammatory markers of ferritin, D-dimer, CRP and LDH. 04/28/2021. Patient still requiring high flow nasal cannula with 40 L O2 FiO2 of 80% and BiPAP at night. Patient is s/p Tocilizumab. The dexamethasone and remdesivir have been completed. Pulmonology recommends Eliquis for increased D- dimer. However, CTA negative from 04/16/2021. Continue to trend inflammatory markers. 04/29/2021: Currently on hi flow FIo 2 80%. Remains on high dose steroids. Added budesonide to inhaler regimen. Will continue to follow for improvement. 04/30/2021: Remains on hi flow FIo 2 80%. Continue current supportive management for covid pneumonia. Called physical therapist to work with patient to mobilize and educate on exercises patient can do while hospitalized. Additionally, I suspect patient has some underlying anxiety after discussion this AM. WIll add buspar to medications. Will d/w CM regarding placement options for patient. Assessment and Plan: #Acute hypoxic respiratory failure - on hi stephan nasal cannula - albuterol 2.5 IH q4hr prn /budesonide bid - pulmonology following #Severe COVID-19 pneumonia - RT PCR positive, patient reports having Pfizer vaccine x2 doses - follow inflammatory markers - decadron initiated initially, now on solumedrol 100 mg IV q8hr. - s/p tociluzimab, remdemsivir - apixaban #Anxiety - continue alprazolam - add buspar # Hypertension - hydralazine prn #GERD - Pepcid 20 mg IV bid # History of Arthritis -moprhine prn # Neuropathy - gabapentin 300 mg po tid #Morbid obesity - poor prognosticator in severe covid 19 presentations DVT Ppx: heparin 5000 units q8hr Dispo: IMCU The high probability of a clinically significant, sudden or life threatening deterioration of the [pulmonary, neuro] system(s) required my full and direct attention, intervention and personal management. The aggregate critical care time was [60] minutes. This time is in addition to time spent performing reported procedures but includes the following: [x] Data Review and interpretation [x] Patient assessment and monitoring of vital signs [x] Documentation [x] Medication orders and management History Interval history: No acute complaints. He remains on high flow with overlying nrb. patient states he became anxious at times overnight. He was concerned about not breathing but bipap mask was infact secure and his sats were ok. We discussed initiating buspar and patient was agreeable. Hospitalist Physical - Physical exam Narrative exam: GENERAL: Not in acute distress, sitting up in bed, morbidly obese . on hi flow nc with overlying nrb. HEENT: Normocephalic. Atraumatic. Patient has moist mucous membranes. NECK: Supple. Trachea midline. CHEST/LUNGS: Bilateral crackles. HEART/CARDIOVASCULAR: Regular in rate and rhythm. S1 and S2 positive. ABDOMEN: Abdomen is soft, nontender. Patient has normal bowel sounds. SKIN: There is no rash. Warm and dry. NEURO: No focal motor deficit. Follows command. MUSCULOSKELETAL: No joint effusion or tenderness. EXTRIMITY: No edema, no cyanosis or clubbing. PSYCH: Cooperative. - Constitutional Vitals: Temp Pulse Resp BP Pulse Ox 97.0 F L 94 H 40 H 140/88 84 04/30/21 07:51 04/30/21 06:31 04/30/21 02:00 04/30/21 06:31 04/30/21 06:31 General appearance: Present: no acute distress, obese Results - Labs CBC & Chem 7: 04/30/21 04:59 04/30/21 04:59 Labs: Laboratory Last Values WBC 30.4 K/mm3 (4.5-11.0) H 04/30/21 04:59 RBC 4.84 M/mm3 (3.65-5.03) 04/30/21 04:59 Hgb 13.9 gm/dl (11.8-15.2) 04/30/21 04:59 Hct 43.2 % (35.5-45.6) 04/30/21 04:59 MCV 89 fl (84-94) 04/30/21 04:59 MCH 29 pg (28-32) 04/30/21 04:59 MCHC 32 % (32-34) 04/30/21 04:59 RDW 13.2 % (13.2-15.2) 04/30/21 04:59 Plt Count 222 K/mm3 (140-440) 04/30/21 04:59 Lymph % (Auto) 9.5 % (13.4-35.0) L 04/28/21 12:51 [place] % (Auto) 6.7 % (0.0-7.3) 04/28/21 12:51 Eos % (Auto) 2.1 % (0.0-4.3) 04/28/21 12:51 Baso % (Auto) 0.5 % (0.0-1.8) 04/28/21 12:51 Lymph # (Auto) 1.4 K/mm3 (1.2-5.4) 04/28/21 12:51 [place] # (Auto) 1.0 K/mm3 (0.0-0.8) H 04/28/21 12:51 Eos # (Auto) 0.3 K/mm3 (0.0-0.4) 04/28/21 12:51 Baso # (Auto) 0.1 K/mm3 (0.0-0.1) 04/28/21 12:51 Add Manual Diff Complete 04/30/21 04:59 Total Counted 100 04/30/21 04:59 Seg Neutrophils % [employer] 04/30/21 04:59 Seg Neuts % (Manual) 88.0 % (40.0-70.0) H 04/30/21 04:59 Band Neutrophils % 4.0 % 04/30/21 04:59 Lymphocytes % (Manual) 0 % (13.4-35.0) L 04/30/21 04:59 Reactive Lymphs % (Man) 0 % 04/30/21 04:59 Monocytes % (Manual) 7.0 % (0.0-7.3) 04/30/21 04:59 Eosinophils % (Manual) 0 % (0.0-4.3) 04/30/21 04:59 Basophils % (Manual) 0 % (0.0-1.8) 04/30/21 04:59 Metamyelocytes % 0 % 04/30/21 04:59 Myelocytes % 1.0 % 04/30/21 04:59 Promyelocytes % 0 % 04/30/21 04:59 Blast Cells % 0 % 04/30/21 04:59 Nucleated RBC % Not Reportable 04/30/21 04:59 Seg Neutrophils # 12.1 K/mm3 (1.8-7.7) H 04/28/21 12:51 Seg Neutrophils # Man 26.8 K/mm3 (1.8-7.7) H 04/30/21 04:59 Band Neutrophils # 1.2 K/mm3 04/30/21 04:59 Lymphocytes # (Manual) 0.0 K/mm3 (1.2-5.4) L 04/30/21 04:59 Abs React Lymphs (Man) 0.0 K/mm3 04/30/21 04:59 Monocytes # (Manual) 2.1 K/mm3 (0.0-0.8) H 04/30/21 04:59 Eosinophils # (Manual) 0.0 K/mm3 (0.0-0.4) 04/30/21 04:59 Basophils # (Manual) 0.0 K/mm3 (0.0-0.1) 04/30/21 04:59 Metamyelocytes # 0.0 K/mm3 04/30/21 04:59 Myelocytes # 0.3 K/mm3 04/30/21 04:59 Promyelocytes # 0.0 K/mm3 04/30/21 04:59 Blast Cells # 0.0 K/mm3 04/30/21 04:59 WBC Morphology Not Reportable 04/30/21 04:59 Hypersegmented Neuts Not Reportable 04/30/21 04:59 Hyposegmented Neuts Not Reportable 04/30/21 04:59 Hypogranular Neuts Not Reportable 04/30/21 04:59 Smudge Cells Not Reportable 04/30/21 04:59 Toxic Granulation Not Reportable 04/30/21 04:59 Toxic Vacuolation Not Reportable 04/30/21 04:59 Dohle Bodies Not Reportable 04/30/21 04:59 Pelger-Huet Anomaly Not Reportable 04/30/21 04:59 Dang Rods Not Reportable 04/30/21 04:59 Platelet Estimate Appears normal 04/30/21 04:59 Clumped Platelets Not Reportable 04/30/21 04:59 Plt Clumps, EDTA Not Reportable 04/30/21 04:59 Large Platelets Not Reportable 04/30/21 04:59 Giant Platelets Not Reportable 04/30/21 04:59 Platelet Satelliting Not Reportable 04/30/21 04:59 Plt Morphology Comment Not Reportable 04/30/21 04:59 RBC Morphology Normal 04/30/21 04:59 Dimorphic RBCs Not Reportable 04/30/21 04:59 Polychromasia Not Reportable 04/30/21 04:59 Hypochromasia Not Reportable 04/30/21 04:59 Poikilocytosis Not Reportable 04/30/21 04:59 Anisocytosis Not Reportable 04/30/21 04:59 Microcytosis Not Reportable 04/30/21 04:59 Macrocytosis Not Reportable 04/30/21 04:59 Spherocytes Not Reportable 04/30/21 04:59 Pappenheimer Bodies Not Reportable 04/30/21 04:59 Sickle Cells Not Reportable 04/30/21 04:59 Target Cells Not Reportable 04/30/21 04:59 Tear Drop Cells Not Reportable 04/30/21 04:59 Ovalocytes Not Reportable 04/30/21 04:59 Helmet Cells Not Reportable 04/30/21 04:59 [place] Bodies Not Reportable 04/30/21 04:59 [place] Rings Not Reportable 04/30/21 04:59 [place] Cells Not Reportable 04/30/21 04:59 Bite Cells Not Reportable 04/30/21 04:59 Crenated Cell Not Reportable 04/30/21 04:59 Elliptocytes Not Reportable 04/30/21 04:59 Acanthocytes (Spur) Not Reportable 04/30/21 04:59 Rouleaux Not Reportable 04/30/21 04:59 Hemoglobin C Crystals Not Reportable 04/30/21 04:59 Schistocytes Not Reportable 04/30/21 04:59 Malaria parasites Not Reportable 04/30/21 04:59 [place] Bodies Not Reportable 04/30/21 04:59 Hem Pathologist Commnt No 04/30/21 04:59 PT 13.8 Sec. (12.2-14.9) 04/28/21 12:51 INR 0.96 (0.87-1.13) 04/28/21 12:51 APTT 27.0 Sec. (24.2-36.6) 04/28/21 12:51 D-Dimer 592.16 ng/mlDDU (0-234) H 04/30/21 04:59 ABG pH 7.480 (7.320-7.450) H 04/19/21 17:21 POC ABG pCO2 37.3 mmHg (32.0-48.0) 04/19/21 17:21 ABG pCO2 36.2 mm Hg 04/18/21 Unknown POC ABG pO2 108.6 mmHg (83-108) H 04/19/21 17:21 ABG pO2 134.6 mm Hg (80.0-90.0) H 04/18/21 Unknown POC ABG HCO3 27.2 04/19/21 17: ABG HCO3 21.0 mmol/L (20.0-26.0) 04/18/21 Unknown ABG O2 Saturation 98.2 (0-100) 04/19/21 17: ABG O2 Content 22.0 (0.0-44) 04/18/21 Unknown POC ABG Base Excess 3.7 04/19/21 17: ABG Base Excess -3.3 mmol/L (-2.0-3.0) L 04/18/21 Unknown ABG Hemoglobin 14.0 (12.0-17.5) 04/19/21 17: ABG Oxyhemoglobin 97.5 (94-98) 04/19/21 17: ABG Carboxyhemoglobin 0.7 % (0.0-5.0) 04/18/21 Unknown ABG Methemoglobin 0.3 (0.0-1.5) 04/19/21 17: ABG Sodium 134.1 mmol/L (136.0-145.0) L 04/19/21 17: ABG Potassium 4.4 mmol/L (3.40-4.50) 04/19/21 17: ABG Chloride 97.0 mmol/L (98-107) L 04/19/21 17: ABG Glucose 167 mg/dL (65-95) H 04/19/21 17: Oxyhemoglobin 97.2 % (95.0-99.0) 04/18/21 Unknown Carboxyhemoglobin 0.4 (0.5-1.5) L 04/19/21 17: FiO2 100 % 04/18/21 Unknown FiO2 % 100 04/19/21 17: Sodium 139 mmol/L (137-145) 04/30/21 04:59 Potassium 4.6 mmol/L (3.6-5.0) 04/30/21 04:59 Chloride 97.4 mmol/L (98-107) L 04/30/21 04:59 Carbon Dioxide 26 mmol/L (22-30) 04/30/21 04:59 Anion Gap 20 mmol/L 04/30/21 04:59 BUN 14 mg/dL (9-20) 04/30/21 04:59 Creatinine 0.6 mg/dL (0.8-1.3) L 04/30/21 04:59 Estimated GFR > 60 ml/min 04/30/21 04:59 BUN/Creatinine Ratio 23 % 04/30/21 04:59 Glucose 180 mg/dL (75-100) H 04/30/21 04:59 POC Glucose 161 mg/dL (70-105) H 04/30/21 07:32 Lactic Acid 1.10 mmol/L (0.7-2.0) 04/16/21 21:18 Calcium 9.5 mg/dL (8.4-10.2) 04/30/21 04:59 Ferritin 789.6 ng/mL (30.0-300.0) H 04/30/21 04:59 Total Bilirubin 0.80 mg/dL (0.1-1.2) 04/30/21 04:59 AST 40 units/L (5-40) 04/30/21 04:59 ALT 68 units/L (7-56) H 04/30/21 04:59 Alkaline Phosphatase 101 units/L (35-129) 04/30/21 04:59 Lactate Dehydrogenase 947 units/L (91-180) H 04/30/21 04:59 C-Reactive Protein 1.20 mg/dL (0.00-1.30) 04/30/21 04:59 NT-Pro-B Natriuret Pep 79.47 pg/mL (0-900) 04/17/21 16:40 Total Protein 6.9 g/dL (6.3-8.2) 04/30/21 04:59 Albumin 3.8 g/dL (3.9-5) L 04/30/21 04:59 Albumin/Globulin Ratio 1.2 % 04/30/21 04:59 Procalcitonin 0.15 ng/mL (<0.15) 04/17/21 16:40 Arterial Blood Glucose 167 mg/dL (65-95) H 04/19/21 17:21 Arterial Blood Ionized Calcium 4.6 mg/dL (4.6-5.3) 04/19/21 17:21 Coronavirus (PCR) Positive (Negative) A 04/20/21 Unknown Martin/IV: Voiding Method Urinal Active Medications - Current Medications Current Medications: Generic Name Dose Route Start Last Admin Trade Name Freq PRN Reason Stop Dose Admin Acetaminophen 650 mg 04/17/21 01:45 04/28/21 13:17 Acetaminophen 325 Mg Tab PO 650 mg Q4H PRN Administration Pain MILD(1-3)/Fever >100.5/AL[place]ANDER Albuterol 2.5 mg 04/17/21 01:45 04/25/21 22:20 Albuterol 2.5 Mg/3 Ml Nebu IH 2.5 mg Q4HRT PRN Administration Shortness Of Breath Alprazolam 0.25 mg 04/17/21 22:00 04/29/21 21:08 Alprazolam 0.25 Mg Tab PO 0.25 mg QHS DEIRDRE Administration Apixaban 5 mg 04/28/21 22:00 04/29/21 21:08 Apixaban 5 Mg Tab PO 5 mg Q12HR DEIRDRE Administration Protocol Ascorbic Acid 1,000 mg 04/17/21 02:00 04/29/21 21:07 Ascorbic Acid 500 Mg Tab PO 1,000 mg Q12HR DEIRDRE Administration Benzonatate 100 mg 04/17/21 06:00 04/30/21 05:47 Benzonatate 100 Mg Cap PO 100 mg Q8HR DEIRDRE Administration Budesonide 0.5 mg 04/29/21 20:00 04/29/21 21:14 Budesonide 0.5 Mg/2 Ml Nebu IH 0.5 mg Q12HRT DEIRDRE Administration Cyclobenzaprine HCl 10 mg 04/17/21 01:49 04/28/21 22:02 Cyclobenzaprine 10 Mg Tab PO 10 mg TID PRN Administration Spasms Famotidine 20 mg 04/25/21 10:00 04/29/21 21:07 Famotidine 20 Mg Tab PO 20 mg BID DEIRDRE Administration Gabapentin 300 mg 04/17/21 08:00 04/29/21 21:08 Gabapentin 300 Mg Cap PO 300 mg TID DEIRDRE Administration Hydralazine HCl 10 mg 04/17/21 02:00 04/22/21 19:16 Hydralazine 20 Mg/1 Ml Inj IV 10 mg Q6H PRN Administration Blood Pressure Hydromorphone HCl 0.5 mg 04/17/21 01:45 04/29/21 04:48 Hydromorphone 1 Mg/1 Ml Inj IV 0.5 mg Q3H PRN Administration Pain , Severe (7-10) Lorazepam 0.5 mg 04/21/21 08:44 04/29/21 02:39 Lorazepam 2 Mg/Ml Vial IV 0.5 mg Q4H PRN Administration Anxiety Methylprednisolone Sodium Succinate 100 mg 04/28/21 21:00 04/30/21 04:23 Methylprednisolone Sod Succinate 125 Mg/2 Ml Inj IV 100 mg Q8H DEIRDRE Administration Morphine Sulfate 2 mg 04/17/21 01:45 04/28/21 18:07 Morphine 2 Mg/1 Ml Inj IV 2 mg Q4H PRN Administration Pain, Moderate (4-6) Ondansetron HCl 4 mg 04/17/21 01:45 04/18/21 07:48 Ondansetron 4 Mg/2 Ml Inj IV 4 mg Q8H PRN Administration Nausea And Vomiting Sodium Chloride 10 ml 04/17/21 10:00 04/29/21 21:11 Sodium Chloride 0.9% 10 Ml Flush Syringe IV 10 ml BID DEIRDRE Administration Sodium Chloride 10 ml 04/17/21 01:45 Sodium Chloride 0.9% 10 Ml Flush Syringe IV PRN PRN LINE FLUSH Zinc Sulfate 220 mg 04/17/21 22:00 04/29/21 21:07 Zinc Sulfate 220 Mg Cap PO 220 mg BID DEIRDRE Administration Nutrition/Malnutrition Assess - Dietary Evaluation Nutrition/Malnutrition Findings: Nutrition Notes Start: 04/24/21 17:14 Freq: Status: Active Protocol: Document 04/24/21 17:14 TEDDY (Rec: 04/24/21 17:41 TEDDY [id number]) Nutrition Notes Need for Assessment generated from: LOS Initial or Follow up Assessment Current Diagnosis Coronary Artery Disease, Hypertension,Respiratory Failure Other Pertinent Diagnosis COVID-19, Pneumonia, AHRF, ARDS, ANKUSH. Current Diet Cardiac Diet (since B 04/17). Labs/Tests 04/22: Cl 108.6, CO2 21, BUN 28, Crea 0.6, Glu 115. Pertinent Medications 04/24: Vit C, ZnSO4, others nutritionally unremarkable. Height 5 ft 8 in Weight 161 kg [place] Body Weight (kg) 70.00 BMI 53.9 Intake Prior to Admission Good Weight change and time frame None reported at admission. Weight Status Morbidly Obese Subjective/Other Information RD consult for LOS assessment. Pt's PO intake of meals is Good (75-100%), according to ADL notes. Percent of energy/protein needs met: Prescribed Cardiac Diet provides for energy/protein needs (2,230 Kcal/85 g) during LOS. Burn Absent Trauma Absent GI Symptoms None Food Allergy No Skin Integrity/Comment Clear, warm, dry. Current % PO Good (75-100%) Minimum of two criteria No Is patient on ventilator? No Is Patient Ambulatory and/or Out of Bed Yes REE-([place]-St. Jeor-ambulatory/OOB) [ 3164.850 [id number]] Kcal/Kg value to use for calculation 9 Approximate Energy Requirements Using 1449 kcal/Kg Calculation Used for Recommendations Kcal/kg Additional Notes Protein: 0.8-1 g/Kg; 93-116 g/ day. Fluids: 1 ml/Kcal, or as per MD. Nutrition Intervention Change Diet Order: Continue Cardiac Diet. Revisit per MD consult or patient Sign Off request: Additional Comments Continue monitoring food tolerance, %PO intake of meals , and BM.
[2021-04-30] MEDS: APIXABAN 5 MG TAB PO SCH ×2 (09:45→21:18)
[2021-04-30] MEDS: ZINC SULFATE 220 MG CAP PO SCH ×2 (09:45→21:17)
[2021-04-30] MEDS: GABAPENTIN 300 MG CAP PO SCH ×3 (09:45→21:24)
[2021-04-30] MEDS: FAMOTIDINE 20 MG TAB PO SCH ×2 (09:45→21:17)
[2021-04-30] MEDS: ASCORBIC ACID 500 MG TAB PO SCH ×2 (09:45→21:18)
--- NOTE | 2021-04-30 10:25 | XRay Report ---
XR chest 1V ap INDICATION / CLINICAL INFORMATION: Follow up on bilateral pulmonary infiltrates.. COMPARISON: 04/22/2021 FINDINGS: SUPPORT DEVICES: None. HEART / MEDIASTINUM: Unchanged. LUNGS / PLEURA: Bilateral parenchymal opacities appear similar to prior. No pneumothorax. ADDITIONAL FINDINGS: No significant additional findings. IMPRESSION: 1. No significant change. Signer Name: Toñito Nguyen MD Signed: 04/30/2021 10:21 AM Workstation Name: [id number]
[2021-04-30] MEDS: BUDESONIDE 0.5 MG/2 ML NEBU IH SCH ×2 (11:58→20:02)
[2021-04-30] MEDS: busPIRone 10 MG TAB PO SCH ×2 (14:06→21:17)
--- NOTE | 2021-04-30 18:49 | Progress Note ---
Assessment and Plan 51-year-old male with history of morbid obesity, hypertension, migraine, coronary osteoarthritis and GERD and headache was brought to the emergency room because of progressive shortness of breath. Patient has history of Covid and he was admitted last week to the hospital. He states he was sent home with oxygen however he is needed 4 L of oxygen and his shortness of breath has gotten worse when he walks his oxygen drops down to the mid 80s. He has frequent cough. Patient states he has some body aches he denies having nausea. Patient stated that he came into contact with an individual who had tested positive for COVID-19 viral infection, but he admits that he has been fully vaccinated against COVID-19 viral infection.Patient smoking, alcohol or drug history not known at this time. In the emergency room patient CT scan of the chest showed scattered groundglass opacities at the bilateral lung suggesting atypical infectious process. Patient awake. Presently on BIPAP 09/04 Rate 30, FIO2 100% and O2 saturation running 94%. Patient says breathing little better than yesterday. Patient afebrile. No leukocytosis. Patients blood pressure 152/87, pulse 59, Respirations 30. Patient is on awake and sitting up in chair. On Vapotherm with 100% FIO2. BIPAP stand by in the room. O2 saturation 90%. Patient afebrile. Has leukocytosis . Patients blood pressure 140/84, pulse 89, Respirations 30. Patients D dimer coming down 592.16 Patient is on Apixaban. Chest xray done 04/20/2021 reported Stable appearance of extensive bilateral pulmonary opacities. Chest xray done 04/22/2021 reported Stable appearance of severe bilateral pulmonary opacities. Venous doppler studies of both legs reported No sonographic evidence for DVT in either lower extremity. Chest xray done 04/30/2021 reported Bilateral parenchymal opacities appear similar to prior. No pneumothorax. Patient ABGs ABG on FiO2 100% ABG pH 7.404 (7.320-7.450) 04/30/21 11:40 POC ABG pCO2 40.8 mmHg (32.0-48.0) 04/30/21 11:40 ABG pCO2 36.2 mm Hg 04/18/21 Unknown POC ABG pO2 71.9 mmHg (83-108) L 04/30/21 11:40 ABG pO2 134.6 mm Hg (80.0-90.0) H 04/18/21 Unknown POC ABG HCO3 24.9 04/30/21 11:40 ABG O2 Saturation 94.4 (0-100) 04/30/21 11:40 Patient is on Apixaban Famotidine, Albuterol/budesonide aerosol treatments, benzonatate. Finished course of Remdesivir. Because of increased shortness of breath and bronchospasm added IV solumedrol. I spent a critical care time of 35 minutes reviewing the chart, examining the patient, talking to the nursing staff and respiratory therapy, reviewing chest xray and lab results, and workup of plan of treament in this critically ill COVID pneumonia patient with acute respiratory failure. - Patient Problems (1) Acute respiratory failure due to COVID-19 Current Visit: Yes Status: Acute Plan to address problem: Vapotherm FIO2 100%. BIPAP /, rate 30, FIO2 100% stand by in the room Started on I/V solumedrol. Finished course of Remdesivir. Continue Apixaban. Continue Famotidine. Albuterol/budesonide aerosol treatments. (2) GERD (gastroesophageal reflux disease) Current Visit: Yes Status: Acute Plan to address problem: Patient is on Famotidine. (3) Hypertension Current Visit: Yes Status: Acute Plan to address problem: Management as per primary care. (4) Coronavirus infection Current Visit: Yes Status: Acute Plan to address problem: Patient is finished course of Remdesivir and decadron. Started on I/V solumedrol because of increased shortness of breath and Bronchospasm. Management as per infectious diseases. Patient is on Apixaban. Subjective Date of service: 04/30/21 Principal diagnosis: AHRF; ARDS; ANKUSH; COVID-19 infxn; Pneumonia; Morbid Obesity Interval history: 51-year-old male with history of morbid obesity, hypertension, migraine, coronary osteoarthritis and GERD and headache was brought to the emergency room because of progressive shortness of breath. Patient has history of Covid and he was admitted last week to the hospital. He states he was sent home with oxygen however he is needed 4 L of oxygen and his shortness of breath has gotten worse when he walks his oxygen drops down to the mid 80s. He has frequent cough. Patient states he has some body aches he denies having nausea. Patient stated that he came into contact with an individual who had tested positive for COVID-19 viral infection, but he admits that he has been fully vaccinated against COVID-19 viral infection.Patient smoking, alcohol or drug history not known at this time. In the emergency room patient CT scan of the chest showed scattered groundglass opacities at the bilateral lung suggesting atypical infectious process. Patient is on awake and sitting up in chair. On Vapotherm with 100% FIO2. BIPAP stand by in the room. O2 saturation 90%. Patient afebrile. Has leukocytosis . Patients blood pressure 140/84, pulse 89, Respirations 30. Patients D dimer coming down 592.16 Patient is on Apixaban. Chest xray done 04/20/2021 reported Stable appearance of extensive bilateral pulmonary opacities. Chest xray done 04/22/2021 reported Stable appearance of severe bilateral pulmonary opacities. Venous doppler studies of both legs reported No sonographic evidence for DVT in either lower extremity. Chest xray done 04/30/2021 reported Bilateral parenchymal opacities appear similar to prior. No pneumothorax. Patient ABGs ABG on FiO2 100% ABG pH 7.404 (7.320-7.450) 04/30/21 11:40 POC ABG pCO2 40.8 mmHg (32.0-48.0) 04/30/21 11:40 ABG pCO2 36.2 mm Hg 04/18/21 Unknown POC ABG pO2 71.9 mmHg (83-108) L 04/30/21 11:40 ABG pO2 134.6 mm Hg (80.0-90.0) H 04/18/21 Unknown POC ABG HCO3 24.9 04/30/21 11:40 ABG O2 Saturation 94.4 (0-100) 04/30/21 11:40 Patient is on Apixaban Famotidine, Albuterol/budesonide aerosol treatments, benzonatate. Finished course of Remdesivir. Because of increased shortness of breath and bronchospasm added IV solumedrol. Objective Vital Signs - 12hr 04/30/21 04/30/21 04/30/21 07:01 07:03 07:31 Temperature Pulse Rate 100 H 77 Pulse Rate [ From Monitor] Respiratory 25 H 33 H Rate Blood Pressure 131/80 131/80 O2 Sat by Pulse 86 91 92 Oximetry 04/30/21 04/30/21 04/30/21 07:51 08:00 08:31 Temperature 97.0 F L Pulse Rate 106 H 113 H Pulse Rate [ 105 H From Monitor] Respiratory 45 H 42 H Rate Blood Pressure 132/90 132/90 O2 Sat by Pulse 84 89 Oximetry 04/30/21 04/30/21 04/30/21 09:00 09:31 10:00 Temperature Pulse Rate 106 H 108 H 107 H Pulse Rate [ From Monitor] Respiratory 46 H 22 31 H Rate Blood Pressure 142/84 142/84 139/78 O2 Sat by Pulse 92 92 87 Oximetry 04/30/21 04/30/21 04/30/21 10:31 11:00 11:31 Temperature Pulse Rate 117 H 72 92 H Pulse Rate [ From Monitor] Respiratory 36 H 28 H 34 H Rate Blood Pressure 139/78 150/75 150/75 O2 Sat by Pulse 87 92 91 Oximetry 04/30/21 04/30/21 04/30/21 11:59 12:00 12:07 Temperature 99.7 F H Pulse Rate 100 H Pulse Rate [ 100 H From Monitor] Respiratory 33 H Rate Blood Pressure 134/89 O2 Sat by Pulse 90 89 Oximetry 04/30/21 04/30/21 04/30/21 12:22 12:31 13:00 Temperature Pulse Rate 92 H 84 Pulse Rate [ From Monitor] Respiratory 33 H Rate Blood Pressure 134/89 O2 Sat by Pulse 91 92 Oximetry 04/30/21 04/30/21 04/30/21 13:01 13:31 14:00 Temperature Pulse Rate 109 H 101 H Pulse Rate [ From Monitor] Respiratory 28 H 19 30 H Rate Blood Pressure 134/89 134/89 151/78 O2 Sat by Pulse 93 90 94 Oximetry 04/30/21 04/30/21 04/30/21 14:31 15:00 15:31 Temperature Pulse Rate 100 H 81 73 Pulse Rate [ From Monitor] Respiratory 20 39 H 19 Rate Blood Pressure 151/78 146/85 146/85 O2 Sat by Pulse 92 89 93 Oximetry 04/30/21 04/30/21 04/30/21 16:00 16:01 16:31 Temperature Pulse Rate 92 H 84 Pulse Rate [ 104 H From Monitor] Respiratory 36 H 41 H 34 H Rate Blood Pressure 146/85 146/85 O2 Sat by Pulse 95 90 94 Oximetry 04/30/21 04/30/21 04/30/21 16:56 16:57 17:00 Temperature 99.0 F 98.4 F Pulse Rate 90 Pulse Rate [ From Monitor] Respiratory Rate Blood Pressure O2 Sat by Pulse Oximetry 04/30/21 04/30/21 04/30/21 17:01 17:31 18:00 Temperature Pulse Rate 115 H 107 H 113 H Pulse Rate [ From Monitor] Respiratory 50 H 38 H 42 H Rate Blood Pressure 113/84 113/84 138/76 O2 Sat by Pulse 90 96 87 Oximetry Constitutional: alert, appears uncomfortable, other (middle aged morbidly obese male) Eyes: non-icteric ENT: oropharynx moist Neck: supple, no lymphadenopathy, no JVD, other (large circumference) Effort: mildly labored Ascultation: Bilateral: diminished breath sounds, wheezes, rhonchi Percussion: Bilateral: not dull Cardiovascular: irregular rhythm, other (Patient tachycardic rate varies from 120 to 140.) Gastrointestinal: normoactive bowel sounds, soft, non-tender, non-distended (protuberant) Integumentary: normal Extremities: no cyanosis, pink and warm, pulses normal, no ischemia or petechiae, edema (trace) Neurologic: normal mental status, non-focal exam, pupils equal and round, CN II- XII normal Psychiatric: anxious CBC and BMP: 04/30/21 04:59 05/01/21 05:22 ABG, PT/INR, D-dimer: ABG ABG pH 7.404 (7.320-7.450) 04/30/21 11:40 POC ABG pCO2 40.8 mmHg (32.0-48.0) 04/30/21 11:40 ABG pCO2 36.2 mm Hg 04/18/21 Unknown POC ABG pO2 71.9 mmHg (83-108) L 04/30/21 11:40 ABG pO2 134.6 mm Hg (80.0-90.0) H 04/18/21 Unknown POC ABG HCO3 24.9 04/30/21 11:40 ABG O2 Saturation 94.4 (0-100) 04/30/21 11:40 PT/INR, D-dimer PT 13.8 Sec. (12.2-14.9) 04/28/21 12:51 INR 0.96 (0.87-1.13) 04/28/21 12:51 D-Dimer 592.16 ng/mlDDU (0-234) H 04/30/21 04:59 Abnormal lab findings: Abnormal Labs 04/16/21 04/16/21 04/17/21 21:18 21:18 16:40 WBC 3.5 L RDW Plt Count 85 L Lymph % (Auto) [place] % (Auto) Lymph # (Auto) 0.7 L [place] # (Auto) Seg Neutrophils % 74.2 H Seg Neuts % (Manual) Lymphocytes % (Manual) Seg Neutrophils # Seg Neutrophils # Man Lymphocytes # (Manual) Monocytes # (Manual) D-Dimer ABG pH POC ABG pO2 ABG pO2 ABG HCO3 ABG O2 Saturation ABG Base Excess ABG Hemoglobin ABG Oxyhemoglobin ABG Sodium ABG Chloride ABG Glucose Oxyhemoglobin Carboxyhemoglobin Sodium 132 L Chloride 93.8 L Carbon Dioxide BUN Creatinine 0.7 L Glucose 125 H POC Glucose Calcium 8.2 L Ferritin 1918.0 H AST 83 H ALT 63 H Lactate Dehydrogenase C-Reactive Protein Albumin 3.7 L Arterial Blood Glucose Arterial Blood Ionized Calcium Coronavirus (PCR) 04/17/21 04/17/21 04/17/21 16:40 16:40 16:40 WBC RDW Plt Count Lymph % (Auto) [place] % (Auto) Lymph # (Auto) [place] # (Auto) Seg Neutrophils % Seg Neuts % (Manual) Lymphocytes % (Manual) Seg Neutrophils # Seg Neutrophils # Man Lymphocytes # (Manual) Monocytes # (Manual) D-Dimer 306.45 H ABG pH POC ABG pO2 ABG pO2 ABG HCO3 ABG O2 Saturation ABG Base Excess ABG Hemoglobin ABG Oxyhemoglobin ABG Sodium ABG Chloride ABG Glucose Oxyhemoglobin Carboxyhemoglobin Sodium 135 L Chloride 96.2 L Carbon Dioxide BUN Creatinine Glucose 155 H POC Glucose Calcium Ferritin AST 72 H ALT 68 H Lactate Dehydrogenase 505 H C-Reactive Protein 16.30 H Albumin 3.5 L Arterial Blood Glucose Arterial Blood Ionized Calcium Coronavirus (PCR) 04/17/21 04/17/21 04/18/21 18:45 Unknown 03:53 WBC RDW 13.1 L Plt Count 115 L Lymph % (Auto) 13.0 L [place] % (Auto) 8.7 H Lymph # (Auto) 1.0 L [place] # (Auto) Seg Neutrophils % 78.2 H Seg Neuts % (Manual) Lymphocytes % (Manual) Seg Neutrophils # Seg Neutrophils # Man Lymphocytes # (Manual) Monocytes # (Manual) D-Dimer ABG pH POC ABG pO2 ABG pO2 56.8 L ABG HCO3 27.4 H ABG O2 Saturation 90.8 L ABG Base Excess 3.1 H ABG Hemoglobin 11.3 L 13.7 L ABG Oxyhemoglobin ABG Sodium ABG Chloride ABG Glucose Oxyhemoglobin 89.4 L Carboxyhemoglobin Sodium Chloride Carbon Dioxide BUN Creatinine Glucose POC Glucose Calcium Ferritin AST ALT Lactate Dehydrogenase C-Reactive Protein Albumin Arterial Blood Glucose Arterial Blood Ionized Calcium Coronavirus (PCR) 04/18/21 04/18/21 04/18/21 03:53 08:02 Unknown WBC RDW Plt Count Lymph % (Auto) [place] % (Auto) Lymph # (Auto) [place] # (Auto) Seg Neutrophils % Seg Neuts % (Manual) Lymphocytes % (Manual) Seg Neutrophils # Seg Neutrophils # Man Lymphocytes # (Manual) Monocytes # (Manual) D-Dimer ABG pH POC ABG pO2 ABG pO2 64.3 L 134.6 H ABG HCO3 26.9 H ABG O2 Saturation 93.6 L ABG Base Excess -3.3 L ABG Hemoglobin 11.9 L ABG Oxyhemoglobin ABG Sodium ABG Chloride ABG Glucose Oxyhemoglobin 92.3 L Carboxyhemoglobin Sodium 135 L Chloride 95.9 L Carbon Dioxide BUN Creatinine 0.7 L Glucose 149 H POC Glucose Calcium Ferritin AST 62 H ALT 59 H Lactate Dehydrogenase C-Reactive Protein Albumin 3.3 L Arterial Blood Glucose Arterial Blood Ionized Calcium Coronavirus (PCR) 04/19/21 04/19/21 04/19/21 01:37 07:28 08:44 WBC RDW Plt Count Lymph % (Auto) [place] % (Auto) Lymph # (Auto) [place] # (Auto) Seg Neutrophils % Seg Neuts % (Manual) Lymphocytes % (Manual) Seg Neutrophils # Seg Neutrophils # Man Lymphocytes # (Manual) Monocytes # (Manual) D-Dimer ABG pH POC ABG pO2 56.3 L ABG pO2 ABG HCO3 ABG O2 Saturation ABG Base Excess ABG Hemoglobin ABG Oxyhemoglobin 88.3 L ABG Sodium 132.8 L ABG Chloride 96.0 L ABG Glucose 145 H Oxyhemoglobin Carboxyhemoglobin 0.4 L Sodium Chloride 97.4 L Carbon Dioxide BUN Creatinine 0.7 L Glucose 130 H POC Glucose 135 H Calcium Ferritin AST 53 H ALT Lactate Dehydrogenase C-Reactive Protein Albumin 3.6 L Arterial Blood Glucose 145 H Arterial Blood Ionized Calcium 4.5 L Coronavirus (PCR) 04/19/21 04/19/21 04/19/21 08:44 11:30 16:53 WBC RDW 12.8 L Plt Count Lymph % (Auto) [place] % (Auto) Lymph # (Auto) [place] # (Auto) Seg Neutrophils % Seg Neuts % (Manual) Lymphocytes % (Manual) Seg Neutrophils # Seg Neutrophils # Man Lymphocytes # (Manual) Monocytes # (Manual) D-Dimer ABG pH POC ABG pO2 ABG pO2 ABG HCO3 ABG O2 Saturation ABG Base Excess ABG Hemoglobin ABG Oxyhemoglobin ABG Sodium ABG Chloride ABG Glucose Oxyhemoglobin Carboxyhemoglobin Sodium Chloride Carbon Dioxide BUN Creatinine Glucose POC Glucose 129 H 146 H Calcium Ferritin AST ALT Lactate Dehydrogenase C-Reactive Protein Albumin Arterial Blood Glucose Arterial Blood Ionized Calcium Coronavirus (PCR) 04/19/21 04/19/21 04/20/21 17:21 21:07 07:18 WBC RDW Plt Count Lymph % (Auto) [place] % (Auto) Lymph # (Auto) [place] # (Auto) Seg Neutrophils % Seg Neuts % (Manual) Lymphocytes % (Manual) Seg Neutrophils # Seg Neutrophils # Man Lymphocytes # (Manual) Monocytes # (Manual) D-Dimer ABG pH 7.480 H POC ABG pO2 108.6 H ABG pO2 ABG HCO3 ABG O2 Saturation ABG Base Excess ABG Hemoglobin ABG Oxyhemoglobin ABG Sodium 134.1 L ABG Chloride 97.0 L ABG Glucose 167 H Oxyhemoglobin Carboxyhemoglobin 0.4 L Sodium Chloride Carbon Dioxide BUN Creatinine Glucose POC Glucose 152 H 128 H Calcium Ferritin AST ALT Lactate Dehydrogenase C-Reactive Protein Albumin Arterial Blood Glucose 167 H Arterial Blood Ionized Calcium Coronavirus (PCR) 04/20/21 04/20/21 04/20/21 11:08 11:08 11:08 WBC RDW Plt Count Lymph % (Auto) [place] % (Auto) Lymph # (Auto) [place] # (Auto) Seg Neutrophils % Seg Neuts % (Manual) Lymphocytes % (Manual) Seg Neutrophils # Seg Neutrophils # Man Lymphocytes # (Manual) Monocytes # (Manual) D-Dimer 1082.55 H ABG pH POC ABG pO2 ABG pO2 ABG HCO3 ABG O2 Saturation ABG Base Excess ABG Hemoglobin ABG Oxyhemoglobin ABG Sodium ABG Chloride ABG Glucose Oxyhemoglobin Carboxyhemoglobin Sodium Chloride Carbon Dioxide BUN 26 H Creatinine Glucose 121 H POC Glucose Calcium Ferritin 1389.0 H AST 46 H ALT Lactate Dehydrogenase 647 H C-Reactive Protein 5.50 H Albumin 3.5 L Arterial Blood Glucose Arterial Blood Ionized Calcium Coronavirus (PCR) 04/20/21 04/20/21 04/20/21 11:08 16:04 21:10 WBC RDW 12.9 L Plt Count Lymph % (Auto) [place] % (Auto) 14.0 H Lymph # (Auto) [place] # (Auto) 0.9 H Seg Neutrophils % Seg Neuts % (Manual) Lymphocytes % (Manual) Seg Neutrophils # Seg Neutrophils # Man Lymphocytes # (Manual) Monocytes # (Manual) D-Dimer ABG pH POC ABG pO2 ABG pO2 ABG HCO3 ABG O2 Saturation ABG Base Excess ABG Hemoglobin ABG Oxyhemoglobin ABG Sodium ABG Chloride ABG Glucose Oxyhemoglobin Carboxyhemoglobin Sodium Chloride Carbon Dioxide BUN Creatinine Glucose POC Glucose 159 H 149 H Calcium Ferritin AST ALT Lactate Dehydrogenase C-Reactive Protein Albumin Arterial Blood Glucose Arterial Blood Ionized Calcium Coronavirus (PCR) 04/20/21 04/21/21 04/21/21 Unknown 11:34 11:34 WBC RDW 13.1 L Plt Count Lymph % (Auto) [place] % (Auto) 13.0 H Lymph # (Auto) [place] # (Auto) 1.2 H Seg Neutrophils % 70.4 H Seg Neuts % (Manual) Lymphocytes % (Manual) Seg Neutrophils # Seg Neutrophils # Man Lymphocytes # (Manual) Monocytes # (Manual) D-Dimer ABG pH POC ABG pO2 ABG pO2 ABG HCO3 ABG O2 Saturation ABG Base Excess ABG Hemoglobin ABG Oxyhemoglobin ABG Sodium ABG Chloride ABG Glucose Oxyhemoglobin Carboxyhemoglobin Sodium Chloride Carbon Dioxide BUN 27 H Creatinine Glucose 107 H POC Glucose Calcium Ferritin AST 46 H ALT Lactate Dehydrogenase C-Reactive Protein Albumin 3.4 L Arterial Blood Glucose Arterial Blood Ionized Calcium Coronavirus (PCR) Positive A 04/21/21 04/21/21 04/22/21 17:00 22:05 04:49 WBC RDW Plt Count Lymph % (Auto) 12.2 L [place] % (Auto) 10.7 H Lymph # (Auto) [place] # (Auto) 1.1 H Seg Neutrophils % 76.6 H Seg Neuts % (Manual) Lymphocytes % (Manual) Seg Neutrophils # Seg Neutrophils # Man Lymphocytes # (Manual) Monocytes # (Manual) D-Dimer ABG pH POC ABG pO2 ABG pO2 ABG HCO3 ABG O2 Saturation ABG Base Excess ABG Hemoglobin ABG Oxyhemoglobin ABG Sodium ABG Chloride ABG Glucose Oxyhemoglobin Carboxyhemoglobin Sodium Chloride Carbon Dioxide BUN Creatinine Glucose POC Glucose 138 H 133 H Calcium Ferritin AST ALT Lactate Dehydrogenase C-Reactive Protein Albumin Arterial Blood Glucose Arterial Blood Ionized Calcium Coronavirus (PCR) 04/22/21 04/22/21 04/22/21 04:49 04:49 04:49 WBC RDW Plt Count Lymph % (Auto) [place] % (Auto) Lymph # (Auto) [place] # (Auto) Seg Neutrophils % Seg Neuts % (Manual) Lymphocytes % (Manual) Seg Neutrophils # Seg Neutrophils # Man Lymphocytes # (Manual) Monocytes # (Manual) D-Dimer 1880.44 H ABG pH POC ABG pO2 ABG pO2 ABG HCO3 ABG O2 Saturation ABG Base Excess ABG Hemoglobin ABG Oxyhemoglobin ABG Sodium ABG Chloride ABG Glucose Oxyhemoglobin Carboxyhemoglobin Sodium Chloride 108.6 H Carbon Dioxide 21 L D BUN 28 H Creatinine 0.6 L Glucose 115 H POC Glucose Calcium Ferritin 1185.0 H AST 50 H ALT Lactate Dehydrogenase 759 H C-Reactive Protein 1.60 H Albumin 3.1 L Arterial Blood Glucose Arterial Blood Ionized Calcium Coronavirus (PCR) 04/22/21 04/22/21 04/23/21 16:17 22:08 21:14 WBC RDW Plt Count Lymph % (Auto) [place] % (Auto) Lymph # (Auto) [place] # (Auto) Seg Neutrophils % Seg Neuts % (Manual) Lymphocytes % (Manual) Seg Neutrophils # Seg Neutrophils # Man Lymphocytes # (Manual) Monocytes # (Manual) D-Dimer ABG pH POC ABG pO2 ABG pO2 ABG HCO3 ABG O2 Saturation ABG Base Excess ABG Hemoglobin ABG Oxyhemoglobin ABG Sodium ABG Chloride ABG Glucose Oxyhemoglobin Carboxyhemoglobin Sodium Chloride Carbon Dioxide BUN Creatinine Glucose POC Glucose 158 H 134 H 159 H Calcium Ferritin AST ALT Lactate Dehydrogenase C-Reactive Protein Albumin Arterial Blood Glucose Arterial Blood Ionized Calcium Coronavirus (PCR) 04/24/21 04/25/21 04/25/21 21:20 11:33 16:23 WBC RDW Plt Count Lymph % (Auto) [place] % (Auto) Lymph # (Auto) [place] # (Auto) Seg Neutrophils % Seg Neuts % (Manual) Lymphocytes % (Manual) Seg Neutrophils # Seg Neutrophils # Man Lymphocytes # (Manual) Monocytes # (Manual) D-Dimer ABG pH POC ABG pO2 ABG pO2 ABG HCO3 ABG O2 Saturation ABG Base Excess ABG Hemoglobin ABG Oxyhemoglobin ABG Sodium ABG Chloride ABG Glucose Oxyhemoglobin Carboxyhemoglobin Sodium Chloride Carbon Dioxide BUN Creatinine Glucose POC Glucose 161 H 126 H 176 H Calcium Ferritin AST ALT Lactate Dehydrogenase C-Reactive Protein Albumin Arterial Blood Glucose Arterial Blood Ionized Calcium Coronavirus (PCR) 04/25/21 04/26/21 04/26/21 21:06 16:26 21:26 WBC RDW Plt Count Lymph % (Auto) [place] % (Auto) Lymph # (Auto) [place] # (Auto) Seg Neutrophils % Seg Neuts % (Manual) Lymphocytes % (Manual) Seg Neutrophils # Seg Neutrophils # Man Lymphocytes # (Manual) Monocytes # (Manual) D-Dimer ABG pH POC ABG pO2 ABG pO2 ABG HCO3 ABG O2 Saturation ABG Base Excess ABG Hemoglobin ABG Oxyhemoglobin ABG Sodium ABG Chloride ABG Glucose Oxyhemoglobin Carboxyhemoglobin Sodium Chloride Carbon Dioxide BUN Creatinine Glucose POC Glucose 214 H 119 H 114 H Calcium Ferritin AST ALT Lactate Dehydrogenase C-Reactive Protein Albumin Arterial Blood Glucose Arterial Blood Ionized Calcium Coronavirus (PCR) 04/27/21 04/27/21 04/28/21 07:32 22:02 12:51 WBC 14.9 H RDW 12.8 L Plt Count Lymph % (Auto) 9.5 L [place] % (Auto) Lymph # (Auto) [place] # (Auto) 1.0 H Seg Neutrophils % 81.2 H Seg Neuts % (Manual) Lymphocytes % (Manual) Seg Neutrophils # 12.1 H Seg Neutrophils # Man Lymphocytes # (Manual) Monocytes # (Manual) D-Dimer ABG pH POC ABG pO2 ABG pO2 ABG HCO3 ABG O2 Saturation ABG Base Excess ABG Hemoglobin ABG Oxyhemoglobin ABG Sodium ABG Chloride ABG Glucose Oxyhemoglobin Carboxyhemoglobin Sodium Chloride Carbon Dioxide BUN Creatinine Glucose POC Glucose 109 H 127 H Calcium Ferritin AST ALT Lactate Dehydrogenase C-Reactive Protein Albumin Arterial Blood Glucose Arterial Blood Ionized Calcium Coronavirus (PCR) 04/28/21 04/28/21 04/28/21 12:51 12:51 12:51 WBC RDW Plt Count Lymph % (Auto) [place] % (Auto) Lymph # (Auto) [place] # (Auto) Seg Neutrophils % Seg Neuts % (Manual) Lymphocytes % (Manual) Seg Neutrophils # Seg Neutrophils # Man Lymphocytes # (Manual) Monocytes # (Manual) D-Dimer 861.39 H ABG pH POC ABG pO2 ABG pO2 ABG HCO3 ABG O2 Saturation ABG Base Excess ABG Hemoglobin ABG Oxyhemoglobin ABG Sodium ABG Chloride ABG Glucose Oxyhemoglobin Carboxyhemoglobin Sodium 134 L Chloride 95.2 L Carbon Dioxide BUN Creatinine 0.6 L Glucose 121 H POC Glucose Calcium Ferritin AST ALT Lactate Dehydrogenase 769 H C-Reactive Protein Albumin Arterial Blood Glucose Arterial Blood Ionized Calcium Coronavirus (PCR) 04/28/21 04/28/21 04/28/21 12:51 16:59 21:17 WBC RDW Plt Count Lymph % (Auto) [place] % (Auto) Lymph # (Auto) [place] # (Auto) Seg Neutrophils % Seg Neuts % (Manual) Lymphocytes % (Manual) Seg Neutrophils # Seg Neutrophils # Man Lymphocytes # (Manual) Monocytes # (Manual) D-Dimer ABG pH POC ABG pO2 ABG pO2 ABG HCO3 ABG O2 Saturation ABG Base Excess ABG Hemoglobin ABG Oxyhemoglobin ABG Sodium ABG Chloride ABG Glucose Oxyhemoglobin Carboxyhemoglobin Sodium Chloride Carbon Dioxide BUN Creatinine Glucose POC Glucose 124 H 146 H Calcium Ferritin 1009.0 H AST ALT Lactate Dehydrogenase C-Reactive Protein Albumin Arterial Blood Glucose Arterial Blood Ionized Calcium Coronavirus (PCR) 04/29/21 04/30/21 04/30/21 21:28 04:59 04:59 WBC 30.4 H RDW Plt Count Lymph % (Auto) [place] % (Auto) Lymph # (Auto) [place] # (Auto) Seg Neutrophils % Seg Neuts % (Manual) 88.0 H Lymphocytes % (Manual) 0 L Seg Neutrophils # Seg Neutrophils # Man 26.8 H Lymphocytes # (Manual) 0.0 L Monocytes # (Manual) 2.1 H D-Dimer 592.16 H ABG pH POC ABG pO2 ABG pO2 ABG HCO3 ABG O2 Saturation ABG Base Excess ABG Hemoglobin ABG Oxyhemoglobin ABG Sodium ABG Chloride ABG Glucose Oxyhemoglobin Carboxyhemoglobin Sodium Chloride Carbon Dioxide BUN Creatinine Glucose POC Glucose 190 H Calcium Ferritin AST ALT Lactate Dehydrogenase C-Reactive Protein Albumin Arterial Blood Glucose Arterial Blood Ionized Calcium Coronavirus (PCR) 04/30/21 04/30/21 04/30/21 04:59 04:59 07:32 WBC RDW Plt Count Lymph % (Auto) [place] % (Auto) Lymph # (Auto) [place] # (Auto) Seg Neutrophils % Seg Neuts % (Manual) Lymphocytes % (Manual) Seg Neutrophils # Seg Neutrophils # Man Lymphocytes # (Manual) Monocytes # (Manual) D-Dimer ABG pH POC ABG pO2 ABG pO2 ABG HCO3 ABG O2 Saturation ABG Base Excess ABG Hemoglobin ABG Oxyhemoglobin ABG Sodium ABG Chloride ABG Glucose Oxyhemoglobin Carboxyhemoglobin Sodium Chloride 97.4 L Carbon Dioxide BUN Creatinine 0.6 L Glucose 180 H POC Glucose 161 H Calcium Ferritin 789.6 H AST ALT 68 H Lactate Dehydrogenase 947 H C-Reactive Protein Albumin 3.8 L Arterial Blood Glucose Arterial Blood Ionized Calcium Coronavirus (PCR) 04/30/21 04/30/21 04/30/21 11:02 11:40 16:24 WBC RDW Plt Count Lymph % (Auto) [place] % (Auto) Lymph # (Auto) [place] # (Auto) Seg Neutrophils % Seg Neuts % (Manual) Lymphocytes % (Manual) Seg Neutrophils # Seg Neutrophils # Man Lymphocytes # (Manual) Monocytes # (Manual) D-Dimer ABG pH POC ABG pO2 71.9 L ABG pO2 ABG HCO3 ABG O2 Saturation ABG Base Excess ABG Hemoglobin ABG Oxyhemoglobin 93.6 L ABG Sodium 132.7 L ABG Chloride 97.0 L ABG Glucose 191 H Oxyhemoglobin Carboxyhemoglobin Sodium Chloride Carbon Dioxide BUN Creatinine Glucose POC Glucose 203 H 205 H Calcium Ferritin AST ALT Lactate Dehydrogenase C-Reactive Protein Albumin Arterial Blood Glucose 191 H Arterial Blood Ionized Calcium Coronavirus (PCR) Chest x-ray: report reviewed, image reviewed Additional Studies: XR chest 1V ap 04/30/20 INDICATION / CLINICAL INFORMATION: Follow up on bilateral pulmonary infiltrates.. COMPARISON: 04/22/2021 FINDINGS: SUPPORT DEVICES: None. HEART / MEDIASTINUM: Unchanged. LUNGS / PLEURA: Bilateral parenchymal opacities appear similar to prior. No pneumothorax. ADDITIONAL FINDINGS: No significant additional findings. IMPRESSION: 1. No significant change. Allied health notes reviewed: nursing
[2021-04-30] MEDS: CYCLOBENZAPRINE 10 MG TAB PO PRN (21:17)
[2021-04-30] MEDS: ALPRAZolam 0.25 MG TAB PO SCH (21:18)
[2021-05-01] MEDS: methylPREDNISolone Sod Succinate 125 MG/2 ML INJ IV SCH ×5 (06:19→23:35)
[2021-05-01] MEDS: BENZONATATE 100 MG CAP PO SCH ×3 (06:20→22:19)
[2021-05-01] MEDS: BUDESONIDE 0.5 MG/2 ML NEBU IH SCH ×2 (09:45→19:53)
[2021-05-01] MEDS: busPIRone 10 MG TAB PO SCH ×2 (10:00→22:17)
[2021-05-01] MEDS: APIXABAN 5 MG TAB PO SCH ×2 (10:00→22:17)
[2021-05-01] MEDS: FAMOTIDINE 20 MG TAB PO SCH ×2 (10:00→22:18)
[2021-05-01] MEDS: GABAPENTIN 300 MG CAP PO SCH ×3 (10:00→20:51)
[2021-05-01] MEDS: ASCORBIC ACID 500 MG TAB PO SCH ×2 (10:00→22:16)
[2021-05-01] MEDS: ZINC SULFATE 220 MG CAP PO SCH ×2 (10:01→22:17)
--- NOTE | 2021-05-01 13:54 | Progress Note ---
Assessment and Plan Acute Hypoxemic Respiratory Failure ARDS ANKUSH COVID-19 infection Bilateral pneumonia Leukopenia Morbid obesity Thrombocytopenia Elevated serum transaminases - advised compliance with BIPAP qhs (prn daytime use) - prn CXR's & ABG's at this point - no acute indication for emergent intubation - continue to watch closely in step-down unit - continue care as below otherwise; - dopplers negative for VTE - continue to wean supplemental oxygen for target O2 sat's > 90% acutely - aspiration precautions - continue bronchodilators with pulmonary hygiene per RT - avoid nephrotoxins, renally dose all medications - avoid benzodiazepine's, reduce the possibility of delirium - s/p AB's per ID rec's - continue accuchecks with glycemic control per SSI (While critically ill target blood glucose of 140-180 mg/dL; avoid hypoglycemia) - prn analgesia per pain score - Maintenance of sleep-wake cycle, avoid delirium - G.I. & VTE prophylaxis - PT/OT/ROM exercises - continue mobility protocols for pressure ulcer prophylaxis - Monitor hemodynamics closely - continue other care per attending / other consultants - discharge planning ongoing concurrently COVID SPECIFIC INTERVENTIONS - Remdesivir as per ID/Pulmonary developed protocols (received) - continue systemic steroids for severe COVID-19 infection empirically (Decadron) - follow repeat COVID tests results - zinc and vitamin C supplementation - Monitor inflammatory markers per facility protocol - ferritin, Ddimer, CRP - therapeutic anticoagulation per system Protocol based on d-dimer and clinical considerations (VTE prophylaxis) - Continue contact and airborne isolation .... Re-evaluate in am & prn CONDITION: CRITICAL PROGNOSIS: GUARDED CODE STATUS: FULL CODE The high probability of a clinically significant, sudden or life-threatening deterioration of the [respiratory, ID & cardiovascular] system(s) required my full and direct attention, intervention and personal management. The aggregate critical care time was [36] minutes without overlap. Time includes spent on; [x] Data Review and interpretation [x] Patient assessment and monitoring of vital signs [x] Documentation [x] Medication orders and management Subjective Date of service: 05/01/21 Principal diagnosis: AHRF; ARDS; ANKUSH; COVID-19 infxn; Pneumonia; Morbid Obesity Interval history: Patient is seen today for: Acute Hypoxemic Respiratory Failure; ARDS; ANKUSH; COVID-19 infxn; Pneumonia Seen and examined at bedside; 24hour events reviewed; nursing and respiratory care staff consulted; no adverse overnight events reported to me; resting in bed; back on 100% Vapotherm with O2 sats in the low 90's; did not sleep on BIPAP overnight; denies N/V/F/C Objective Vital Signs - 12hr 05/01/21 05/01/21 05/01/21 02:00 02:31 02:57 Temperature Pulse Rate 56 L 60 Pulse Rate [ Posterior] Respiratory 23 24 Rate Respiratory Rate [Posterior ] Blood Pressure 120/72 120/72 O2 Sat by Pulse 92 92 92 Oximetry 05/01/21 05/01/21 05/01/21 03:01 03:31 04:00 Temperature 96.9 F L Pulse Rate 58 L 61 Pulse Rate [ Posterior] Respiratory 26 H 25 H Rate Respiratory Rate [Posterior ] Blood Pressure 121/64 121/64 O2 Sat by Pulse 92 91 Oximetry 05/01/21 05/01/21 05/01/21 04:01 04:31 05:00 Temperature Pulse Rate 62 86 64 Pulse Rate [ Posterior] Respiratory 22 31 H 22 Rate Respiratory Rate [Posterior ] Blood Pressure 117/81 117/81 111/72 O2 Sat by Pulse 90 87 90 Oximetry 05/01/21 05/01/21 05/01/21 05:05 05:31 06:01 Temperature Pulse Rate 71 75 65 Pulse Rate [ Posterior] Respiratory 23 29 H Rate Respiratory Rate [Posterior ] Blood Pressure 111/72 138/75 O2 Sat by Pulse 94 91 Oximetry 05/01/21 05/01/21 05/01/21 06:31 07:00 07:31 Temperature Pulse Rate 64 62 59 L Pulse Rate [ Posterior] Respiratory 13 24 16 Rate Respiratory Rate [Posterior ] Blood Pressure 138/75 152/71 152/71 O2 Sat by Pulse 94 95 94 Oximetry 05/01/21 05/01/21 05/01/21 08:00 08:01 09:00 Temperature 97.9 F Pulse Rate 65 Pulse Rate [ 62 Posterior] Respiratory 30 H Rate Respiratory 32 H Rate [Posterior ] Blood Pressure 152/71 O2 Sat by Pulse 92 95 Oximetry 05/01/21 12:00 Temperature 98.0 F Pulse Rate Pulse Rate [ Posterior] Respiratory Rate Respiratory Rate [Posterior ] Blood Pressure O2 Sat by Pulse Oximetry Constitutional: alert, appears uncomfortable, other (middle aged morbidly obese male with mildly increased respiratory effort at rest) Eyes: non-icteric ENT: oropharynx moist Neck: supple, no lymphadenopathy, no JVD, other (large circumference) Effort: mildly labored Ascultation: Bilateral: diminished breath sounds, rhonchi Percussion: Bilateral: not dull Cardiovascular: irregular rhythm, other (Patient tachycardic rate varies from 120 to 140.) Gastrointestinal: normoactive bowel sounds, soft, non-tender, non-distended (protuberant) Integumentary: normal Extremities: no cyanosis, pink and warm, pulses normal, no ischemia or petechiae, edema (trace) Neurologic: normal mental status, non-focal exam, pupils equal and round, CN II-XII normal Psychiatric: mood appropriate, affect normal CBC and BMP: 04/30/21 04:59 05/01/21 05:22 ABG, PT/INR, D-dimer: ABG ABG pH 7.404 (7.320-7.450) 04/30/21 11:40 POC ABG pCO2 40.8 mmHg (32.0-48.0) 04/30/21 11:40 ABG pCO2 36.2 mm Hg 04/18/21 Unknown POC ABG pO2 71.9 mmHg (83-108) L 04/30/21 11:40 ABG pO2 134.6 mm Hg (80.0-90.0) H 04/18/21 Unknown POC ABG HCO3 24.9 04/30/21 11:40 ABG O2 Saturation 94.4 (0-100) 04/30/21 11:40 PT/INR, D-dimer PT 13.8 Sec. (12.2-14.9) 04/28/21 12:51 INR 0.96 (0.87-1.13) 04/28/21 12:51 D-Dimer 592.16 ng/mlDDU (0-234) H 04/30/21 04:59 Abnormal lab findings: Abnormal Labs 04/16/21 04/16/21 04/17/21 21:18 21:18 16:40 WBC 3.5 L RDW Plt Count 85 L Lymph % (Auto) [place] % (Auto) Lymph # (Auto) 0.7 L [place] # (Auto) Seg Neutrophils % 74.2 H Seg Neuts % (Manual) Lymphocytes % (Manual) Seg Neutrophils # Seg Neutrophils # Man Lymphocytes # (Manual) Monocytes # (Manual) D-Dimer ABG pH POC ABG pO2 ABG pO2 ABG HCO3 ABG O2 Saturation ABG Base Excess ABG Hemoglobin ABG Oxyhemoglobin ABG Sodium ABG Chloride ABG Glucose Oxyhemoglobin Carboxyhemoglobin Sodium 132 L Chloride 93.8 L Carbon Dioxide BUN Creatinine 0.7 L Glucose 125 H POC Glucose Calcium 8.2 L Ferritin 1918.0 H AST 83 H ALT 63 H Lactate Dehydrogenase C-Reactive Protein Albumin 3.7 L Arterial Blood Glucose Arterial Blood Ionized Calcium Coronavirus (PCR) 04/17/21 04/17/21 04/17/21 16:40 16:40 16:40 WBC RDW Plt Count Lymph % (Auto) [place] % (Auto) Lymph # (Auto) [place] # (Auto) Seg Neutrophils % Seg Neuts % (Manual) Lymphocytes % (Manual) Seg Neutrophils # Seg Neutrophils # Man Lymphocytes # (Manual) Monocytes # (Manual) D-Dimer 306.45 H ABG pH POC ABG pO2 ABG pO2 ABG HCO3 ABG O2 Saturation ABG Base Excess ABG Hemoglobin ABG Oxyhemoglobin ABG Sodium ABG Chloride ABG Glucose Oxyhemoglobin Carboxyhemoglobin Sodium 135 L Chloride 96.2 L Carbon Dioxide BUN Creatinine Glucose 155 H POC Glucose Calcium Ferritin AST 72 H ALT 68 H Lactate Dehydrogenase 505 H C-Reactive Protein 16.30 H Albumin 3.5 L Arterial Blood Glucose Arterial Blood Ionized Calcium Coronavirus (PCR) 04/17/21 04/17/21 04/18/21 18:45 Unknown 03:53 WBC RDW 13.1 L Plt Count 115 L Lymph % (Auto) 13.0 L [place] % (Auto) 8.7 H Lymph # (Auto) 1.0 L [place] # (Auto) Seg Neutrophils % 78.2 H Seg Neuts % (Manual) Lymphocytes % (Manual) Seg Neutrophils # Seg Neutrophils # Man Lymphocytes # (Manual) Monocytes # (Manual) D-Dimer ABG pH POC ABG pO2 ABG pO2 56.8 L ABG HCO3 27.4 H ABG O2 Saturation 90.8 L ABG Base Excess 3.1 H ABG Hemoglobin 11.3 L 13.7 L ABG Oxyhemoglobin ABG Sodium ABG Chloride ABG Glucose Oxyhemoglobin 89.4 L Carboxyhemoglobin Sodium Chloride Carbon Dioxide BUN Creatinine Glucose POC Glucose Calcium Ferritin AST ALT Lactate Dehydrogenase C-Reactive Protein Albumin Arterial Blood Glucose Arterial Blood Ionized Calcium Coronavirus (PCR) 04/18/21 04/18/21 04/18/21 03:53 08:02 Unknown WBC RDW Plt Count Lymph % (Auto) [place] % (Auto) Lymph # (Auto) [place] # (Auto) Seg Neutrophils % Seg Neuts % (Manual) Lymphocytes % (Manual) Seg Neutrophils # Seg Neutrophils # Man Lymphocytes # (Manual) Monocytes # (Manual) D-Dimer ABG pH POC ABG pO2 ABG pO2 64.3 L 134.6 H ABG HCO3 26.9 H ABG O2 Saturation 93.6 L ABG Base Excess -3.3 L ABG Hemoglobin 11.9 L ABG Oxyhemoglobin ABG Sodium ABG Chloride ABG Glucose Oxyhemoglobin 92.3 L Carboxyhemoglobin Sodium 135 L Chloride 95.9 L Carbon Dioxide BUN Creatinine 0.7 L Glucose 149 H POC Glucose Calcium Ferritin AST 62 H ALT 59 H Lactate Dehydrogenase C-Reactive Protein Albumin 3.3 L Arterial Blood Glucose Arterial Blood Ionized Calcium Coronavirus (PCR) 04/19/21 04/19/21 04/19/21 01:37 07:28 08:44 WBC RDW Plt Count Lymph % (Auto) [place] % (Auto) Lymph # (Auto) [place] # (Auto) Seg Neutrophils % Seg Neuts % (Manual) Lymphocytes % (Manual) Seg Neutrophils # Seg Neutrophils # Man Lymphocytes # (Manual) Monocytes # (Manual) D-Dimer ABG pH POC ABG pO2 56.3 L ABG pO2 ABG HCO3 ABG O2 Saturation ABG Base Excess ABG Hemoglobin ABG Oxyhemoglobin 88.3 L ABG Sodium 132.8 L ABG Chloride 96.0 L ABG Glucose 145 H Oxyhemoglobin Carboxyhemoglobin 0.4 L Sodium Chloride 97.4 L Carbon Dioxide BUN Creatinine 0.7 L Glucose 130 H POC Glucose 135 H Calcium Ferritin AST 53 H ALT Lactate Dehydrogenase C-Reactive Protein Albumin 3.6 L Arterial Blood Glucose 145 H Arterial Blood Ionized Calcium 4.5 L Coronavirus (PCR) 04/19/21 04/19/21 04/19/21 08:44 11:30 16:53 WBC RDW 12.8 L Plt Count Lymph % (Auto) [place] % (Auto) Lymph # (Auto) [place] # (Auto) Seg Neutrophils % Seg Neuts % (Manual) Lymphocytes % (Manual) Seg Neutrophils # Seg Neutrophils # Man Lymphocytes # (Manual) Monocytes # (Manual) D-Dimer ABG pH POC ABG pO2 ABG pO2 ABG HCO3 ABG O2 Saturation ABG Base Excess ABG Hemoglobin ABG Oxyhemoglobin ABG Sodium ABG Chloride ABG Glucose Oxyhemoglobin Carboxyhemoglobin Sodium Chloride Carbon Dioxide BUN Creatinine Glucose POC Glucose 129 H 146 H Calcium Ferritin AST ALT Lactate Dehydrogenase C-Reactive Protein Albumin Arterial Blood Glucose Arterial Blood Ionized Calcium Coronavirus (PCR) 04/19/21 04/19/21 04/20/21 17:21 21:07 07:18 WBC RDW Plt Count Lymph % (Auto) [place] % (Auto) Lymph # (Auto) [place] # (Auto) Seg Neutrophils % Seg Neuts % (Manual) Lymphocytes % (Manual) Seg Neutrophils # Seg Neutrophils # Man Lymphocytes # (Manual) Monocytes # (Manual) D-Dimer ABG pH 7.480 H POC ABG pO2 108.6 H ABG pO2 ABG HCO3 ABG O2 Saturation ABG Base Excess ABG Hemoglobin ABG Oxyhemoglobin ABG Sodium 134.1 L ABG Chloride 97.0 L ABG Glucose 167 H Oxyhemoglobin Carboxyhemoglobin 0.4 L Sodium Chloride Carbon Dioxide BUN Creatinine Glucose POC Glucose 152 H 128 H Calcium Ferritin AST ALT Lactate Dehydrogenase C-Reactive Protein Albumin Arterial Blood Glucose 167 H Arterial Blood Ionized Calcium Coronavirus (PCR) 04/20/21 04/20/21 04/20/21 11:08 11:08 11:08 WBC RDW Plt Count Lymph % (Auto) [place] % (Auto) Lymph # (Auto) [place] # (Auto) Seg Neutrophils % Seg Neuts % (Manual) Lymphocytes % (Manual) Seg Neutrophils # Seg Neutrophils # Man Lymphocytes # (Manual) Monocytes # (Manual) D-Dimer 1082.55 H ABG pH POC ABG pO2 ABG pO2 ABG HCO3 ABG O2 Saturation ABG Base Excess ABG Hemoglobin ABG Oxyhemoglobin ABG Sodium ABG Chloride ABG Glucose Oxyhemoglobin Carboxyhemoglobin Sodium Chloride Carbon Dioxide BUN 26 H Creatinine Glucose 121 H POC Glucose Calcium Ferritin 1389.0 H AST 46 H ALT Lactate Dehydrogenase 647 H C-Reactive Protein 5.50 H Albumin 3.5 L Arterial Blood Glucose Arterial Blood Ionized Calcium Coronavirus (PCR) 04/20/21 04/20/21 04/20/21 11:08 16:04 21:10 WBC RDW 12.9 L Plt Count Lymph % (Auto) [place] % (Auto) 14.0 H Lymph # (Auto) [place] # (Auto) 0.9 H Seg Neutrophils % Seg Neuts % (Manual) Lymphocytes % (Manual) Seg Neutrophils # Seg Neutrophils # Man Lymphocytes # (Manual) Monocytes # (Manual) D-Dimer ABG pH POC ABG pO2 ABG pO2 ABG HCO3 ABG O2 Saturation ABG Base Excess ABG Hemoglobin ABG Oxyhemoglobin ABG Sodium ABG Chloride ABG Glucose Oxyhemoglobin Carboxyhemoglobin Sodium Chloride Carbon Dioxide BUN Creatinine Glucose POC Glucose 159 H 149 H Calcium Ferritin AST ALT Lactate Dehydrogenase C-Reactive Protein Albumin Arterial Blood Glucose Arterial Blood Ionized Calcium Coronavirus (PCR) 04/20/21 04/21/21 04/21/21 Unknown 11:34 11:34 WBC RDW 13.1 L Plt Count Lymph % (Auto) [place] % (Auto) 13.0 H Lymph # (Auto) Tift # (Auto) 1.2 H Seg Neutrophils % 70.4 H Seg Neuts % (Manual) Lymphocytes % (Manual) Seg Neutrophils # Seg Neutrophils # Man Lymphocytes # (Manual) Monocytes # (Manual) D-Dimer ABG pH POC ABG pO2 ABG pO2 ABG HCO3 ABG O2 Saturation ABG Base Excess ABG Hemoglobin ABG Oxyhemoglobin ABG Sodium ABG Chloride ABG Glucose Oxyhemoglobin Carboxyhemoglobin Sodium Chloride Carbon Dioxide BUN 27 H Creatinine Glucose 107 H POC Glucose Calcium Ferritin AST 46 H ALT Lactate Dehydrogenase C-Reactive Protein Albumin 3.4 L Arterial Blood Glucose Arterial Blood Ionized Calcium Coronavirus (PCR) Positive A 04/21/21 04/21/21 04/22/21 17:00 22:05 04:49 WBC RDW Plt Count Lymph % (Auto) 12.2 L [place] % (Auto) 10.7 H Lymph # (Auto) [place] # (Auto) 1.1 H Seg Neutrophils % 76.6 H Seg Neuts % (Manual) Lymphocytes % (Manual) Seg Neutrophils # Seg Neutrophils # Man Lymphocytes # (Manual) Monocytes # (Manual) D-Dimer ABG pH POC ABG pO2 ABG pO2 ABG HCO3 ABG O2 Saturation ABG Base Excess ABG Hemoglobin ABG Oxyhemoglobin ABG Sodium ABG Chloride ABG Glucose Oxyhemoglobin Carboxyhemoglobin Sodium Chloride Carbon Dioxide BUN Creatinine Glucose POC Glucose 138 H 133 H Calcium Ferritin AST ALT Lactate Dehydrogenase C-Reactive Protein Albumin Arterial Blood Glucose Arterial Blood Ionized Calcium Coronavirus (PCR) 04/22/21 04/22/21 04/22/21 04:49 04:49 04:49 WBC RDW Plt Count Lymph % (Auto) [place] % (Auto) Lymph # (Auto) [place] # (Auto) Seg Neutrophils % Seg Neuts % (Manual) Lymphocytes % (Manual) Seg Neutrophils # Seg Neutrophils # Man Lymphocytes # (Manual) Monocytes # (Manual) D-Dimer 1880.44 H ABG pH POC ABG pO2 ABG pO2 ABG HCO3 ABG O2 Saturation ABG Base Excess ABG Hemoglobin ABG Oxyhemoglobin ABG Sodium ABG Chloride ABG Glucose Oxyhemoglobin Carboxyhemoglobin Sodium Chloride 108.6 H Carbon Dioxide 21 L D BUN 28 H Creatinine 0.6 L Glucose 115 H POC Glucose Calcium Ferritin 1185.0 H AST 50 H ALT Lactate Dehydrogenase 759 H C-Reactive Protein 1.60 H Albumin 3.1 L Arterial Blood Glucose Arterial Blood Ionized Calcium Coronavirus (PCR) 04/22/21 04/22/21 04/23/21 16:17 22:08 21:14 WBC RDW Plt Count Lymph % (Auto) [place] % (Auto) Lymph # (Auto) [place] # (Auto) Seg Neutrophils % Seg Neuts % (Manual) Lymphocytes % (Manual) Seg Neutrophils # Seg Neutrophils # Man Lymphocytes # (Manual) Monocytes # (Manual) D-Dimer ABG pH POC ABG pO2 ABG pO2 ABG HCO3 ABG O2 Saturation ABG Base Excess ABG Hemoglobin ABG Oxyhemoglobin ABG Sodium ABG Chloride ABG Glucose Oxyhemoglobin Carboxyhemoglobin Sodium Chloride Carbon Dioxide BUN Creatinine Glucose POC Glucose 158 H 134 H 159 H Calcium Ferritin AST ALT Lactate Dehydrogenase C-Reactive Protein Albumin Arterial Blood Glucose Arterial Blood Ionized Calcium Coronavirus (PCR) 04/24/21 04/25/21 04/25/21 21:20 11:33 16:23 WBC RDW Plt Count Lymph % (Auto) [place] % (Auto) Lymph # (Auto) [place] # (Auto) Seg Neutrophils % Seg Neuts % (Manual) Lymphocytes % (Manual) Seg Neutrophils # Seg Neutrophils # Man Lymphocytes # (Manual) Monocytes # (Manual) D-Dimer ABG pH POC ABG pO2 ABG pO2 ABG HCO3 ABG O2 Saturation ABG Base Excess ABG Hemoglobin ABG Oxyhemoglobin ABG Sodium ABG Chloride ABG Glucose Oxyhemoglobin Carboxyhemoglobin Sodium Chloride Carbon Dioxide BUN Creatinine Glucose POC Glucose 161 H 126 H 176 H Calcium Ferritin AST ALT Lactate Dehydrogenase C-Reactive Protein Albumin Arterial Blood Glucose Arterial Blood Ionized Calcium Coronavirus (PCR) 04/25/21 04/26/21 04/26/21 21:06 16:26 21:26 WBC RDW Plt Count Lymph % (Auto) [place] % (Auto) Lymph # (Auto) [place] # (Auto) Seg Neutrophils % Seg Neuts % (Manual) Lymphocytes % (Manual) Seg Neutrophils # Seg Neutrophils # Man Lymphocytes # (Manual) Monocytes # (Manual) D-Dimer ABG pH POC ABG pO2 ABG pO2 ABG HCO3 ABG O2 Saturation ABG Base Excess ABG Hemoglobin ABG Oxyhemoglobin ABG Sodium ABG Chloride ABG Glucose Oxyhemoglobin Carboxyhemoglobin Sodium Chloride Carbon Dioxide BUN Creatinine Glucose POC Glucose 214 H 119 H 114 H Calcium Ferritin AST ALT Lactate Dehydrogenase C-Reactive Protein Albumin Arterial Blood Glucose Arterial Blood Ionized Calcium Coronavirus (PCR) 04/27/21 04/27/21 04/28/21 07:32 22:02 12:51 WBC 14.9 H RDW 12.8 L Plt Count Lymph % (Auto) 9.5 L [place] % (Auto) Lymph # (Auto) [place] # (Auto) 1.0 H Seg Neutrophils % 81.2 H Seg Neuts % (Manual) Lymphocytes % (Manual) Seg Neutrophils # 12.1 H Seg Neutrophils # Man Lymphocytes # (Manual) Monocytes # (Manual) D-Dimer ABG pH POC ABG pO2 ABG pO2 ABG HCO3 ABG O2 Saturation ABG Base Excess ABG Hemoglobin ABG Oxyhemoglobin ABG Sodium ABG Chloride ABG Glucose Oxyhemoglobin Carboxyhemoglobin Sodium Chloride Carbon Dioxide BUN Creatinine Glucose POC Glucose 109 H 127 H Calcium Ferritin AST ALT Lactate Dehydrogenase C-Reactive Protein Albumin Arterial Blood Glucose Arterial Blood Ionized Calcium Coronavirus (PCR) 04/28/21 04/28/21 04/28/21 12:51 12:51 12:51 WBC RDW Plt Count Lymph % (Auto) [place] % (Auto) Lymph # (Auto) [place] # (Auto) Seg Neutrophils % Seg Neuts % (Manual) Lymphocytes % (Manual) Seg Neutrophils # Seg Neutrophils # Man Lymphocytes # (Manual) Monocytes # (Manual) D-Dimer 861.39 H ABG pH POC ABG pO2 ABG pO2 ABG HCO3 ABG O2 Saturation ABG Base Excess ABG Hemoglobin ABG Oxyhemoglobin ABG Sodium ABG Chloride ABG Glucose Oxyhemoglobin Carboxyhemoglobin Sodium 134 L Chloride 95.2 L Carbon Dioxide BUN Creatinine 0.6 L Glucose 121 H POC Glucose Calcium Ferritin AST ALT Lactate Dehydrogenase 769 H C-Reactive Protein Albumin Arterial Blood Glucose Arterial Blood Ionized Calcium Coronavirus (PCR) 04/28/21 04/28/21 04/28/21 12:51 16:59 21:17 WBC RDW Plt Count Lymph % (Auto) [place] % (Auto) Lymph # (Auto) [place] # (Auto) Seg Neutrophils % Seg Neuts % (Manual) Lymphocytes % (Manual) Seg Neutrophils # Seg Neutrophils # Man Lymphocytes # (Manual) Monocytes # (Manual) D-Dimer ABG pH POC ABG pO2 ABG pO2 ABG HCO3 ABG O2 Saturation ABG Base Excess ABG Hemoglobin ABG Oxyhemoglobin ABG Sodium ABG Chloride ABG Glucose Oxyhemoglobin Carboxyhemoglobin Sodium Chloride Carbon Dioxide BUN Creatinine Glucose POC Glucose 124 H 146 H Calcium Ferritin 1009.0 H AST ALT Lactate Dehydrogenase C-Reactive Protein Albumin Arterial Blood Glucose Arterial Blood Ionized Calcium Coronavirus (PCR) 04/29/21 04/30/21 04/30/21 21:28 04:59 04:59 WBC 30.4 H RDW Plt Count Lymph % (Auto) [place] % (Auto) Lymph # (Auto) [place] # (Auto) Seg Neutrophils % Seg Neuts % (Manual) 88.0 H Lymphocytes % (Manual) 0 L Seg Neutrophils # Seg Neutrophils # Man 26.8 H Lymphocytes # (Manual) 0.0 L Monocytes # (Manual) 2.1 H D-Dimer 592.16 H ABG pH POC ABG pO2 ABG pO2 ABG HCO3 ABG O2 Saturation ABG Base Excess ABG Hemoglobin ABG Oxyhemoglobin ABG Sodium ABG Chloride ABG Glucose Oxyhemoglobin Carboxyhemoglobin Sodium Chloride Carbon Dioxide BUN Creatinine Glucose POC Glucose 190 H Calcium Ferritin AST ALT Lactate Dehydrogenase C-Reactive Protein Albumin Arterial Blood Glucose Arterial Blood Ionized Calcium Coronavirus (PCR) 04/30/21 04/30/21 04/30/21 04:59 04:59 07:32 WBC RDW Plt Count Lymph % (Auto) [place] % (Auto) Lymph # (Auto) [place] # (Auto) Seg Neutrophils % Seg Neuts % (Manual) Lymphocytes % (Manual) Seg Neutrophils # Seg Neutrophils # Man Lymphocytes # (Manual) Monocytes # (Manual) D-Dimer ABG pH POC ABG pO2 ABG pO2 ABG HCO3 ABG O2 Saturation ABG Base Excess ABG Hemoglobin ABG Oxyhemoglobin ABG Sodium ABG Chloride ABG Glucose Oxyhemoglobin Carboxyhemoglobin Sodium Chloride 97.4 L Carbon Dioxide BUN Creatinine 0.6 L Glucose 180 H POC Glucose 161 H Calcium Ferritin 789.6 H AST ALT 68 H Lactate Dehydrogenase 947 H C-Reactive Protein Albumin 3.8 L Arterial Blood Glucose Arterial Blood Ionized Calcium Coronavirus (PCR) 04/30/21 04/30/21 04/30/21 11:02 11:40 16:24 WBC RDW Plt Count Lymph % (Auto) [place] % (Auto) Lymph # (Auto) [place] # (Auto) Seg Neutrophils % Seg Neuts % (Manual) Lymphocytes % (Manual) Seg Neutrophils # Seg Neutrophils # Man Lymphocytes # (Manual) Monocytes # (Manual) D-Dimer ABG pH POC ABG pO2 71.9 L ABG pO2 ABG HCO3 ABG O2 Saturation ABG Base Excess ABG Hemoglobin ABG Oxyhemoglobin 93.6 L ABG Sodium 132.7 L ABG Chloride 97.0 L ABG Glucose 191 H Oxyhemoglobin Carboxyhemoglobin Sodium Chloride Carbon Dioxide BUN Creatinine Glucose POC Glucose 203 H 205 H Calcium Ferritin AST ALT Lactate Dehydrogenase C-Reactive Protein Albumin Arterial Blood Glucose 191 H Arterial Blood Ionized Calcium Coronavirus (PCR) 04/30/21 05/01/21 05/01/21 21:16 05:22 07:33 WBC RDW Plt Count Lymph % (Auto) [place] % (Auto) Lymph # (Auto) [place] # (Auto) Seg Neutrophils % Seg Neuts % (Manual) Lymphocytes % (Manual) Seg Neutrophils # Seg Neutrophils # Man Lymphocytes # (Manual) Monocytes # (Manual) D-Dimer ABG pH POC ABG pO2 ABG pO2 ABG HCO3 ABG O2 Saturation ABG Base Excess ABG Hemoglobin ABG Oxyhemoglobin ABG Sodium ABG Chloride ABG Glucose Oxyhemoglobin Carboxyhemoglobin Sodium Chloride Carbon Dioxide BUN Creatinine 0.6 L Glucose POC Glucose 184 H 199 H Calcium Ferritin AST ALT Lactate Dehydrogenase C-Reactive Protein Albumin Arterial Blood Glucose Arterial Blood Ionized Calcium Coronavirus (PCR) 05/01/21 11:36 WBC RDW Plt Count Lymph % (Auto) [place] % (Auto) Lymph # (Auto) [place] # (Auto) Seg Neutrophils % Seg Neuts % (Manual) Lymphocytes % (Manual) Seg Neutrophils # Seg Neutrophils # Man Lymphocytes # (Manual) Monocytes # (Manual) D-Dimer ABG pH POC ABG pO2 ABG pO2 ABG HCO3 ABG O2 Saturation ABG Base Excess ABG Hemoglobin ABG Oxyhemoglobin ABG Sodium ABG Chloride ABG Glucose Oxyhemoglobin Carboxyhemoglobin Sodium Chloride Carbon Dioxide BUN Creatinine Glucose POC Glucose 196 H Calcium Ferritin AST ALT Lactate Dehydrogenase C-Reactive Protein Albumin Arterial Blood Glucose Arterial Blood Ionized Calcium Coronavirus (PCR) Chest x-ray: image reviewed (persistent dense consolidation) Allied health notes reviewed: nursing
--- NOTE | 2021-05-01 18:09 | Progress Note ---
Assessment and Plan Assessment and plan: HPI: 51-year-old male with history of morbid obesity, hypertension, migraine, coronary osteoarthritis and GERD and headache was brought to the emergency room because of progressive shortness of breath. Patient has history of Covid and he was admitted last week to the hospital. He states he was sent home with oxygen however he is needed 4 L of oxygen and his shortness of breath has gotten worse when he walks his oxygen drops down to the mid 80s. Patient stated that he came into contact with an individual who had tested positive for COVID-19 viral infection, but he admits that he has been fully vaccinated against COVID-19 viral infection. In the emergency room patient CT scan of the chest showed scattered groundglass opacities at the bilateral lung suggesting atypical infectious process. hospital course: 04/18/21 Patient with recently diagnosed Covid-19 04/13/21 as outpatient. Presents with shortness of breath. Now on Remdesivir, Decadron, Rocephin, Zithromax. Patient also has sleep apnea uses CPAP at home. Pulm and ID following He is currently on BIPAP 04/19/21:clinically the patient appears to be in no distress despite being on 100% fio2 bipap mask. However, ABG data looks worse, Po2: 56.3. CXR demonstrates worsened pulmonary interstitial infiltrates. Discussed case with Dr. Lagunas. Low threshold for intubation should he worsen. Patient was advised on my encounter to maintain bipap mask and not remove it. Continue therapy with decadron, remdesivir. Dc abx due to low procal. Actemra ordered. Will follow ID recs. Consult PT to continue mobilizing patient. Encouraged patient to do so in presence of care staff 04/20/2021: Remains bipap dependent. No acute changes in respiratory status. Unfortunately he is low threshold for intubation. Will follow pulmonology/ID recommendations. 04/21/2021: Remains bipap dependent. Currenlty 100%. No changes overnight. Will follow pulm/ID recs. 04/22/2021. Patient currently requiring high flow nasal cannula with 40 L O2 FiO2 of 100%. Continue dexamethasone 6 mg IV for total of 10 days with remdesivir IV x5 days. Continue to follow inflammatory markers of ferritin, D-dimer, CRP and LDH. Patient is s/p Tocilizumab. Prone positioning as able. 04/23/2021: Patient currently requiring high flow nasal cannula with 40 L O2 FiO2 of 100% and BiPAP at night. Continue dexamethasone 6 mg IV for total of 10 days with remdesivir IV x5 days. Continue to follow inflammatory markers of ferritin, D-dimer, CRP and LDH. Patient is s/p Tocilizumab. Prone positioning as able. ID and pulmonary following. 04/24/2021: Patient currently requiring high flow nasal cannula with 40 L O2 FiO2 of 90% and BiPAP at night. Continue dexamethasone 6 mg IV for total of 10 days with remdesivir IV x5 days. Continue to follow inflammatory markers of ferritin, D-dimer, CRP and LDH. Patient is s/p Tocilizumab. Prone positioning as able. ID and pulmonary following. 04/25/2021. Patient currently requiring high flow nasal cannula with 40 L O2 FiO2 of 70% and BiPAP at night. Continue dexamethasone 6 mg IV for total of 10 days with remdesivir IV x5 days. Continue to follow inflammatory markers of ferritin, D-dimer, CRP and LDH. Patient is s/p Tocilizumab. Prone positioning as able. ID and pulmonary following. 04/26/2021. Patient currently requiring high flow nasal cannula with 40 L O2 FiO2 of 80% and BiPAP at night. O2 requirement had to be increased slightly since yesterday. Continue current management. Patient is s/p Tocilizumab. The dexamethasone and remdesivir have been completed. Consider continuing steroids given the ongoing hypoxia. Defer to pulmonary. Continue to monitor inflammatory markers of ferritin, D-dimer, CRP and LDH. 04/27/2021. Patient currently requiring high flow nasal cannula with 40 L O2 FiO2 of 80% and BiPAP at night. Continue current management. Patient is s/p Tocilizumab. The dexamethasone and remdesivir have been completed. Consider continuing steroids given the ongoing hypoxia. Defer to pulmonary. Continue to monitor inflammatory markers of ferritin, D-dimer, CRP and LDH. 04/28/2021. Patient still requiring high flow nasal cannula with 40 L O2 FiO2 of 80% and BiPAP at night. Patient is s/p Tocilizumab. The dexamethasone and remdesivir have been completed. Pulmonology recommends Eliquis for increased D- dimer. However, CTA negative from 04/16/2021. Continue to trend inflammatory markers. 04/29/2021: Currently on hi flow FIo 2 80%. Remains on high dose steroids. Added budesonide to inhaler regimen. Will continue to follow for improvement. 04/30/2021: Remains on hi flow FIo 2 80%. Continue current supportive management for covid pneumonia. Called physical therapist to work with patient to mobilize and educate on exercises patient can do while hospitalized. Additionally, I suspect patient has some underlying anxiety after discussion this AM. WIll add buspar to medications. Will d/w CM regarding placement options for patient. 05/01/2021: Remains on hi flow 40/100 today. Patient doing well, very small incremental improvements. Working with CM for LTAC placement Assessment and Plan: #Acute hypoxic respiratory failure - on hi stephan nasal cannula - albuterol 2.5 IH q4hr prn /budesonide bid - pulmonology following #Severe COVID-19 pneumonia - RT PCR positive, patient reports having Pfizer vaccine x2 doses - follow inflammatory markers - decadron initiated initially, now on solumedrol 100 mg IV q8hr. - s/p tociluzimab, remdemsivir - apixaban #Anxiety - continue alprazolam - add buspar # Hypertension - hydralazine prn #GERD - Pepcid 20 mg IV bid # History of Arthritis -moprhine prn # Neuropathy - gabapentin 300 mg po tid #Morbid obesity - poor prognosticator in severe covid 19 presentations DVT Ppx: heparin 5000 units q8hr Dispo: IMCU The high probability of a clinically significant, sudden or life threatening d eterioration of the [pulmonary, neuro] system(s) required my full and direct attention, intervention and personal management. The aggregate critical care time was [60] minutes. This time is in addition to time spent performing reported procedures but includes the following: [x] Data Review and interpretation [x] Patient assessment and monitoring of vital signs [x] Documentation [x] Medication orders and management History Interval history: Remains on hi flow NC. 40/100 Hospitalist Physical - Physical exam Narrative exam: GENERAL: Not in acute distress, sitting up in bed, morbidly obese . on hi flow nc with overlying nrb. HEENT: Normocephalic. Atraumatic. Patient has moist mucous membranes. NECK: Supple. Trachea midline. CHEST/LUNGS: Bilateral crackles. HEART/CARDIOVASCULAR: Regular in rate and rhythm. S1 and S2 positive. ABDOMEN: Abdomen is soft, nontender. Patient has normal bowel sounds. SKIN: There is no rash. Warm and dry. NEURO: No focal motor deficit. Follows command. MUSCULOSKELETAL: No joint effusion or tenderness. EXTRIMITY: No edema, no cyanosis or clubbing. PSYCH: Cooperative. - Constitutional Vitals: Temp Pulse Resp BP Pulse Ox 98.4 F 64 24 137/80 95 05/01/21 16:00 05/01/21 14:00 05/01/21 14:00 05/01/21 14:00 05/01/21 14:00 General appearance: Present: no acute distress, obese Results - Labs CBC & Chem 7: 04/30/21 04:59 05/01/21 05:22 Labs: Laboratory Last Values WBC 30.4 K/mm3 (4.5-11.0) H 04/30/21 04:59 RBC 4.84 M/mm3 (3.65-5.03) 04/30/21 04:59 Hgb 13.9 gm/dl (11.8-15.2) 04/30/21 04:59 Hct 43.2 % (35.5-45.6) 04/30/21 04:59 MCV 89 fl (84-94) 04/30/21 04:59 MCH 29 pg (28-32) 04/30/21 04:59 MCHC 32 % (32-34) 04/30/21 04:59 RDW 13.2 % (13.2-15.2) 04/30/21 04:59 Plt Count 222 K/mm3 (140-440) 04/30/21 04:59 Lymph % (Auto) 9.5 % (13.4-35.0) L 04/28/21 12:51 Dale % (Auto) 6.7 % (0.0-7.3) 04/28/21 12:51 Eos % (Auto) 2.1 % (0.0-4.3) 04/28/21 12:51 Baso % (Auto) 0.5 % (0.0-1.8) 04/28/21 12:51 Lymph # (Auto) 1.4 K/mm3 (1.2-5.4) 04/28/21 12:51 Dale # (Auto) 1.0 K/mm3 (0.0-0.8) H 04/28/21 12:51 Eos # (Auto) 0.3 K/mm3 (0.0-0.4) 04/28/21 12:51 Baso # (Auto) 0.1 K/mm3 (0.0-0.1) 04/28/21 12:51 Add Manual Diff Complete 04/30/21 04:59 Total Counted 100 04/30/21 04:59 Seg Neutrophils % Commercial Lines Account Assistant 04/30/21 04:59 Seg Neuts % (Manual) 88.0 % (40.0-70.0) H 04/30/21 04:59 Band Neutrophils % 4.0 % 04/30/21 04:59 Lymphocytes % (Manual) 0 % (13.4-35.0) L 04/30/21 04:59 Reactive Lymphs % (Man) 0 % 04/30/21 04:59 Monocytes % (Manual) 7.0 % (0.0-7.3) 04/30/21 04:59 Eosinophils % (Manual) 0 % (0.0-4.3) 04/30/21 04:59 Basophils % (Manual) 0 % (0.0-1.8) 04/30/21 04:59 Metamyelocytes % 0 % 04/30/21 04:59 Myelocytes % 1.0 % 04/30/21 04:59 Promyelocytes % 0 % 04/30/21 04:59 Blast Cells % 0 % 04/30/21 04:59 Nucleated RBC % Not Reportable 04/30/21 04:59 Seg Neutrophils # 12.1 K/mm3 (1.8-7.7) H 04/28/21 12:51 Seg Neutrophils # Man 26.8 K/mm3 (1.8-7.7) H 04/30/21 04:59 Band Neutrophils # 1.2 K/mm3 04/30/21 04:59 Lymphocytes # (Manual) 0.0 K/mm3 (1.2-5.4) L 04/30/21 04:59 Abs React Lymphs (Man) 0.0 K/mm3 04/30/21 04:59 Monocytes # (Manual) 2.1 K/mm3 (0.0-0.8) H 04/30/21 04:59 Eosinophils # (Manual) 0.0 K/mm3 (0.0-0.4) 04/30/21 04:59 Basophils # (Manual) 0.0 K/mm3 (0.0-0.1) 04/30/21 04:59 Metamyelocytes # 0.0 K/mm3 04/30/21 04:59 Myelocytes # 0.3 K/mm3 04/30/21 04:59 Promyelocytes # 0.0 K/mm3 04/30/21 04:59 Blast Cells # 0.0 K/mm3 04/30/21 04:59 WBC Morphology Not Reportable 04/30/21 04:59 Hypersegmented Neuts Not Reportable 04/30/21 04:59 Hyposegmented Neuts Not Reportable 04/30/21 04:59 Hypogranular Neuts Not Reportable 04/30/21 04:59 Smudge Cells Not Reportable 04/30/21 04:59 Toxic Granulation Not Reportable 04/30/21 04:59 Toxic Vacuolation Not Reportable 04/30/21 04:59 Dohle Bodies Not Reportable 04/30/21 04:59 Pelger-Huet Anomaly Not Reportable 04/30/21 04:59 Dang Rods Not Reportable 04/30/21 04:59 Platelet Estimate Appears normal 04/30/21 04:59 Clumped Platelets Not Reportable 04/30/21 04:59 Plt Clumps, EDTA Not Reportable 04/30/21 04:59 Large Platelets Not Reportable 04/30/21 04:59 Giant Platelets Not Reportable 04/30/21 04:59 Platelet Satelliting Not Reportable 04/30/21 04:59 Plt Morphology Comment Not Reportable 04/30/21 04:59 RBC Morphology Normal 04/30/21 04:59 Dimorphic RBCs Not Reportable 04/30/21 04:59 Polychromasia Not Reportable 04/30/21 04:59 Hypochromasia Not Reportable 04/30/21 04:59 Poikilocytosis Not Reportable 04/30/21 04:59 Anisocytosis Not Reportable 04/30/21 04:59 Microcytosis Not Reportable 04/30/21 04:59 Macrocytosis Not Reportable 04/30/21 04:59 Spherocytes Not Reportable 04/30/21 04:59 Pappenheimer Bodies Not Reportable 04/30/21 04:59 Sickle Cells Not Reportable 04/30/21 04:59 Target Cells Not Reportable 04/30/21 04:59 Tear Drop Cells Not Reportable 04/30/21 04:59 Ovalocytes Not Reportable 04/30/21 04:59 Helmet Cells Not Reportable 04/30/21 04:59 Vargas-Naturita Bodies Not Reportable 04/30/21 04:59 [place]ering Rings Not Reportable 04/30/21 04:59 [place] Cells Not Reportable 04/30/21 04:59 Bite Cells Not Reportable 04/30/21 04:59 Crenated Cell Not Reportable 04/30/21 04:59 Elliptocytes Not Reportable 04/30/21 04:59 Acanthocytes (Spur) Not Reportable 04/30/21 04:59 Rouleaux Not Reportable 04/30/21 04:59 Hemoglobin C Crystals Not Reportable 04/30/21 04:59 Schistocytes Not Reportable 04/30/21 04:59 Malaria parasites Not Reportable 04/30/21 04:59 Yury Bodies Not Reportable 04/30/21 04:59 Hem Pathologist Commnt No 04/30/21 04:59 PT 13.8 Sec. (12.2-14.9) 04/28/21 12:51 INR 0.96 (0.87-1.13) 04/28/21 12:51 APTT 27.0 Sec. (24.2-36.6) 04/28/21 12:51 D-Dimer 592.16 ng/mlDDU (0-234) H 04/30/21 04:59 ABG pH 7.404 (7.320-7.450) 04/30/21 11:40 POC ABG pCO2 40.8 mmHg (32.0-48.0) 04/30/21 11:40 ABG pCO2 36.2 mm Hg 04/18/21 Unknown POC ABG pO2 71.9 mmHg (83-108) L 04/30/21 11:40 ABG pO2 134.6 mm Hg (80.0-90.0) H 04/18/21 Unknown POC ABG HCO3 24.9 04/30/21 11:40 ABG HCO3 21.0 mmol/L (20.0-26.0) 04/18/21 Unknown ABG O2 Saturation 94.4 (0-100) 04/30/21 11:40 ABG O2 Content 22.0 (0.0-44) 04/18/21 Unknown POC ABG Base Excess 0.2 04/30/21 11:40 ABG Base Excess -3.3 mmol/L (-2.0-3.0) L 04/18/21 Unknown ABG Hemoglobin 14.6 (12.0-17.5) 04/30/21 11:40 ABG Oxyhemoglobin 93.6 (94-98) L 04/30/21 11:40 ABG Carboxyhemoglobin 0.7 % (0.0-5.0) 04/18/21 Unknown ABG Methemoglobin 0.3 (0.0-1.5) 04/30/21 11:40 ABG Sodium 132.7 mmol/L (136.0-145.0) L 04/30/21 11:40 ABG Potassium 4.4 mmol/L (3.40-4.50) 04/30/21 11:40 ABG Chloride 97.0 mmol/L (98-107) L 04/30/21 11:40 ABG Glucose 191 mg/dL (65-95) H 04/30/21 11:40 Oxyhemoglobin 97.2 % (95.0-99.0) 04/18/21 Unknown Carboxyhemoglobin 0.5 (0.5-1.5) 04/30/21 11:40 FiO2 100 % 04/18/21 Unknown FiO2 % 100 04/30/21 11:40 Sodium 139 mmol/L (137-145) 04/30/21 04:59 Potassium 4.6 mmol/L (3.6-5.0) 04/30/21 04:59 Chloride 97.4 mmol/L (98-107) L 04/30/21 04:59 Carbon Dioxide 26 mmol/L (22-30) 04/30/21 04:59 Anion Gap 20 mmol/L 04/30/21 04:59 BUN 14 mg/dL (9-20) 04/30/21 04:59 Creatinine 0.6 mg/dL (0.8-1.3) L 05/01/21 05:22 Estimated GFR > 60 ml/min 05/01/21 05:22 BUN/Creatinine Ratio 23 % 04/30/21 04:59 Glucose 180 mg/dL (75-100) H 04/30/21 04:59 POC Glucose 196 mg/dL (70-105) H 05/01/21 11:36 Lactic Acid 1.10 mmol/L (0.7-2.0) 04/16/21 21:18 Calcium 9.5 mg/dL (8.4-10.2) 04/30/21 04:59 Ferritin 789.6 ng/mL (30.0-300.0) H 04/30/21 04:59 Total Bilirubin 0.80 mg/dL (0.1-1.2) 04/30/21 04:59 AST 40 units/L (5-40) 04/30/21 04:59 ALT 68 units/L (7-56) H 04/30/21 04:59 Alkaline Phosphatase 101 units/L (35-129) 04/30/21 04:59 Lactate Dehydrogenase 947 units/L (91-180) H 04/30/21 04:59 C-Reactive Protein 1.20 mg/dL (0.00-1.30) 04/30/21 04:59 NT-Pro-B Natriuret Pep 79.47 pg/mL (0-900) 04/17/21 16:40 Total Protein 6.9 g/dL (6.3-8.2) 04/30/21 04:59 Albumin 3.8 g/dL (3.9-5) L 04/30/21 04:59 Albumin/Globulin Ratio 1.2 % 04/30/21 04:59 Procalcitonin 0.15 ng/mL (<0.15) 04/17/21 16:40 Arterial Blood Glucose 191 mg/dL (65-95) H 04/30/21 11:40 Arterial Blood Ionized Calcium 4.8 mg/dL (4.6-5.3) 04/30/21 11:40 Coronavirus (PCR) Positive (Negative) A 04/20/21 Unknown Martin/IV: Voiding Method Urinal Active Medications - Current Medications Current Medications: Generic Name Dose Route Start Last Admin Trade Name Freq PRN Reason Stop Dose Admin Acetaminophen 650 mg 04/17/21 01:45 04/28/21 13:17 Acetaminophen 325 Mg Tab PO 650 mg Q4H PRN Administration Pain MILD(1-3)/Fever >100.5/ALEXANDER Albuterol 2.5 mg 04/17/21 01:45 04/25/21 22:20 Albuterol 2.5 Mg/3 Ml Nebu IH 2.5 mg Q4HRT PRN Administration Shortness Of Breath Alprazolam 0.25 mg 04/17/21 22:00 04/30/21 21:18 Alprazolam 0.25 Mg Tab PO 0.25 mg QHS DEIRDRE Administration Apixaban 5 mg 04/28/21 22:00 05/01/21 10:00 Apixaban 5 Mg Tab PO 5 mg Q12HR DEIRDRE Administration Protocol Ascorbic Acid 1,000 mg 04/17/21 02:00 05/01/21 10:00 Ascorbic Acid 500 Mg Tab PO 1,000 mg Q12HR DEIRDRE Administration Benzonatate 100 mg 04/17/21 06:00 05/01/21 13:26 Benzonatate 100 Mg Cap PO 100 mg Q8HR DEIRDRE Administration Budesonide 0.5 mg 04/29/21 20:00 05/01/21 09:45 Budesonide 0.5 Mg/2 Ml Nebu IH 0.5 mg Q12HRT DEIRDRE Administration Buspirone HCl 10 mg 04/30/21 12:00 05/01/21 10:00 Buspirone 10 Mg Tab PO 10 mg BID DEIRDRE Administration Cyclobenzaprine HCl 10 mg 04/17/21 01:49 04/30/21 21:17 Cyclobenzaprine 10 Mg Tab PO 10 mg TID PRN Administration Spasms Famotidine 20 mg 04/25/21 10:00 05/01/21 10:00 Famotidine 20 Mg Tab PO 20 mg BID DEIRDRE Administration Gabapentin 300 mg 04/17/21 08:00 05/01/21 13:25 Gabapentin 300 Mg Cap PO 300 mg TID DEIRDRE Administration Hydralazine HCl 10 mg 04/17/21 02:00 04/22/21 19:16 Hydralazine 20 Mg/1 Ml Inj IV 10 mg Q6H PRN Administration Blood Pressure Hydromorphone HCl 0.5 mg 04/17/21 01:45 04/29/21 04:48 Hydromorphone 1 Mg/1 Ml Inj IV 0.5 mg Q3H PRN Administration Pain , Severe (7-10) Lorazepam 0.5 mg 04/21/21 08:44 04/29/21 02:39 Lorazepam 2 Mg/Ml Vial IV 0.5 mg Q4H PRN Administration Anxiety Methylprednisolone Sodium Succinate 60 mg 05/01/21 12:00 05/01/21 13:25 Methylprednisolone Sod Succinate 125 Mg/2 Ml Inj IV 60 mg Q6HR DEIRDRE Administration Morphine Sulfate 2 mg 04/17/21 01:45 04/28/21 18:07 Morphine 2 Mg/1 Ml Inj IV 2 mg Q4H PRN Administration Pain, Moderate (4-6) Ondansetron HCl 4 mg 04/17/21 01:45 04/18/21 07:48 Ondansetron 4 Mg/2 Ml Inj IV 4 mg Q8H PRN Administration Nausea And Vomiting Sodium Chloride 10 ml 04/17/21 10:00 05/01/21 10:00 Sodium Chloride 0.9% 10 Ml Flush Syringe IV 10 ml BID DEIRDRE Administration Sodium Chloride 10 ml 04/17/21 01:45 Sodium Chloride 0.9% 10 Ml Flush Syringe IV PRN PRN LINE FLUSH Zinc Sulfate 220 mg 04/17/21 22:00 05/01/21 10:01 Zinc Sulfate 220 Mg Cap PO 220 mg BID DEIRDRE Administration Nutrition/Malnutrition Assess - Dietary Evaluation Nutrition/Malnutrition Findings: Nutrition Notes Start: 04/24/21 17:14 Freq: Status: Active Protocol: Document 04/24/21 17:14 TEDDY (Rec: 04/24/21 17:41 TEDDY [id number]) Nutrition Notes Need for Assessment generated from: LOS Initial or Follow up Assessment Current Diagnosis Coronary Artery Disease, Hypertension,Respiratory Failure Other Pertinent Diagnosis COVID-19, Pneumonia, AHRF, ARDS, ANKUSH. Current Diet Cardiac Diet (since B 04/17). Labs/Tests 04/22: Cl 108.6, CO2 21, BUN 28, Crea 0.6, Glu 115. Pertinent Medications 04/24: Vit C, ZnSO4, others nutritionally unremarkable. Height 5 ft 8 in Weight 161 kg [place] Body Weight (kg) 70.00 BMI 53.9 Intake Prior to Admission Good Weight change and time frame None reported at admission. Weight Status Morbidly Obese Subjective/Other Information RD consult for LOS assessment. Pt's PO intake of meals is Good (75-100%), according to ADL notes. Percent of energy/protein needs met: Prescribed Cardiac Diet provides for energy/protein needs (2,230 Kcal/85 g) during LOS. Burn Absent Trauma Absent GI Symptoms None Food Allergy No Skin Integrity/Comment Clear, warm, dry. Current % PO Good (75-100%) Minimum of two criteria No Is patient on ventilator? No Is Patient Ambulatory and/or Out of Bed Yes REE-(Dale-St. Jeor-ambulatory/OOB) [ 3164.850 [id number]] Kcal/Kg value to use for calculation 9 Approximate Energy Requirements Using 1449 kcal/Kg Calculation Used for Recommendations Kcal/kg Additional Notes Protein: 0.8-1 g/Kg; 93-116 g/ day. Fluids: 1 ml/Kcal, or as per MD. Nutrition Intervention Change Diet Order: Continue Cardiac Diet. Revisit per MD consult or patient Sign Off request: Additional Comments Continue monitoring food tolerance, %PO intake of meals , and BM.
[2021-05-01] MEDS: ALPRAZolam 0.25 MG TAB PO SCH (22:17)
--- NOTE | 2021-05-02 04:11 | XRay Report ---
CHEST - 1 VIEW INDICATION: covid 19 pna COMPARISON: 2 days prior FINDINGS: SUPPORT DEVICES: None. HEART: Stable cardiomediastinal silhouette. LUNGS/PLEURA: Persistent mild patchy multifocal airspace disease. ADDITIONAL FINDINGS: None. IMPRESSION: Unchanged exam. Signer Name: Ron Ford MD Signed: 05/02/2021 4:07 AM Workstation Name: [id number]
[2021-05-02 06:03] LABS: Hematocrit 40.7 % (35.5-45.6); Hemoglobin 13.3 gm/dl (11.8-15.2); Mean Corpuscular HGB Conc 33 % (32-34); Mean Corpuscular Volume 89 fl (84-94); Platelet Count 198 K/mm3 (140-440); Red Blood Count 4.59 M/mm3 (3.65-5.03); Red Cell Distribution Width 13.2 % (13.2-15.2)
[2021-05-02 06:07] LABS: Alanine Aminotransferase 53 units/L (7-56); Albumin 3.5 g/dL (3.9-5); BUN/Creatinine Ratio 32; Blood Urea Nitrogen 19 mg/dL (9-20); Hemolysis Index 6
[2021-05-02] MEDS: BENZONATATE 100 MG CAP PO SCH ×3 (06:53→21:25)
[2021-05-02] MEDS: methylPREDNISolone Sod Succinate 125 MG/2 ML INJ IV SCH ×3 (06:53→17:55)
[2021-05-02] MEDS: GABAPENTIN 300 MG CAP PO SCH ×3 (09:56→21:25)
[2021-05-02] MEDS: busPIRone 10 MG TAB PO SCH ×2 (09:56→21:24)
[2021-05-02] MEDS: ASCORBIC ACID 500 MG TAB PO SCH ×2 (09:56→21:25)
[2021-05-02] MEDS: APIXABAN 5 MG TAB PO SCH ×2 (09:56→21:24)
[2021-05-02] MEDS: ZINC SULFATE 220 MG CAP PO SCH ×2 (09:56→21:24)
[2021-05-02] MEDS: FAMOTIDINE 20 MG TAB PO SCH ×2 (09:56→21:25)
[2021-05-02] MEDS: BUDESONIDE 0.5 MG/2 ML NEBU IH SCH ×2 (10:39→20:55)
--- NOTE | 2021-05-02 14:27 | Progress Note ---
Assessment and Plan Assessment and plan: HPI: 51-year-old male with history of morbid obesity, hypertension, migraine, coronary osteoarthritis and GERD and headache was brought to the emergency room because of progressive shortness of breath. Patient has history of Covid and he was admitted last week to the hospital. He states he was sent home with oxygen however he is needed 4 L of oxygen and his shortness of breath has gotten worse when he walks his oxygen drops down to the mid 80s. Patient stated that he came into contact with an individual who had tested positive for COVID-19 viral infection, but he admits that he has been fully vaccinated against COVID-19 viral infection. In the emergency room patient CT scan of the chest showed scattered groundglass opacities at the bilateral lung suggesting atypical infectious process. hospital course: 04/18/21 Patient with recently diagnosed Covid-19 04/13/21 as outpatient. Presents with shortness of breath. Now on Remdesivir, Decadron, Rocephin, Zithromax. Patient also has sleep apnea uses CPAP at home. Pulm and ID following He is currently on BIPAP 04/19/21:clinically the patient appears to be in no distress despite being on 100% fio2 bipap mask. However, ABG data looks worse, Po2: 56.3. CXR demonstrates worsened pulmonary interstitial infiltrates. Discussed case with Dr. Lagunas. Low threshold for intubation should he worsen. Patient was advised on my encounter to maintain bipap mask and not remove it. Continue therapy with decadron, remdesivir. Dc abx due to low procal. Actemra ordered. Will follow ID recs. Consult PT to continue mobilizing patient. Encouraged patient to do so in presence of care staff 04/20/2021: Remains bipap dependent. No acute changes in respiratory status. Unfortunately he is low threshold for intubation. Will follow pulmonology/ID recommendations. 04/21/2021: Remains bipap dependent. Currenlty 100%. No changes overnight. Will follow pulm/ID recs. 04/22/2021. Patient currently requiring high flow nasal cannula with 40 L O2 FiO2 of 100%. Continue dexamethasone 6 mg IV for total of 10 days with remdesivir IV x5 days. Continue to follow inflammatory markers of ferritin, D-dimer, CRP and LDH. Patient is s/p Tocilizumab. Prone positioning as able. 04/23/2021: Patient currently requiring high flow nasal cannula with 40 L O2 FiO2 of 100% and BiPAP at night. Continue dexamethasone 6 mg IV for total of 10 days with remdesivir IV x5 days. Continue to follow inflammatory markers of ferritin, D-dimer, CRP and LDH. Patient is s/p Tocilizumab. Prone positioning as able. ID and pulmonary following. 04/24/2021: Patient currently requiring high flow nasal cannula with 40 L O2 FiO2 of 90% and BiPAP at night. Continue dexamethasone 6 mg IV for total of 10 days with remdesivir IV x5 days. Continue to follow inflammatory markers of ferritin, D-dimer, CRP and LDH. Patient is s/p Tocilizumab. Prone positioning as able. ID and pulmonary following. 04/25/2021. Patient currently requiring high flow nasal cannula with 40 L O2 FiO2 of 70% and BiPAP at night. Continue dexamethasone 6 mg IV for total of 10 days with remdesivir IV x5 days. Continue to follow inflammatory markers of ferritin, D-dimer, CRP and LDH. Patient is s/p Tocilizumab. Prone positioning as able. ID and pulmonary following. 04/26/2021. Patient currently requiring high flow nasal cannula with 40 L O2 FiO2 of 80% and BiPAP at night. O2 requirement had to be increased slightly since yesterday. Continue current management. Patient is s/p Tocilizumab. The dexamethasone and remdesivir have been completed. Consider continuing steroids given the ongoing hypoxia. Defer to pulmonary. Continue to monitor inflammatory markers of ferritin, D-dimer, CRP and LDH. 04/27/2021. Patient currently requiring high flow nasal cannula with 40 L O2 FiO2 of 80% and BiPAP at night. Continue current management. Patient is s/p Tocilizumab. The dexamethasone and remdesivir have been completed. Consider continuing steroids given the ongoing hypoxia. Defer to pulmonary. Continue to monitor inflammatory markers of ferritin, D-dimer, CRP and LDH. 04/28/2021. Patient still requiring high flow nasal cannula with 40 L O2 FiO2 of 80% and BiPAP at night. Patient is s/p Tocilizumab. The dexamethasone and remdesivir have been completed. Pulmonology recommends Eliquis for increased D- dimer. However, CTA negative from 04/16/2021. Continue to trend inflammatory markers. 04/29/2021: Currently on hi flow FIo 2 80%. Remains on high dose steroids. Added budesonide to inhaler regimen. Will continue to follow for improvement. 04/30/2021: Remains on hi flow FIo 2 80%. Continue current supportive management for covid pneumonia. Called physical therapist to work with patient to mobilize and educate on exercises patient can do while hospitalized. Additionally, I suspect patient has some underlying anxiety after discussion this AM. WIll add buspar to medications. Will d/w CM regarding placement options for patient. 05/01/2021: Remains on hi flow 40/100 today. Patient doing well, very small incremental improvements. Working with CM for LTAC placement 05/02/2021: Remains on hi flow. Awaiting LTAC placement. Assessment and Plan: #Acute hypoxic respiratory failure - on hi stephan nasal cannula - albuterol 2.5 IH q4hr prn /budesonide bid - pulmonology following #Severe COVID-19 pneumonia - RT PCR positive, patient reports having Pfizer vaccine x2 doses - follow inflammatory markers - decadron initiated initially, now on solumedrol 100 mg IV q8hr. - s/p tociluzimab, remdemsivir - apixaban #Anxiety - continue alprazolam - add buspar # Hypertension - hydralazine prn #GERD - Pepcid 20 mg IV bid # History of Arthritis -moprhine prn # Neuropathy - gabapentin 300 mg po tid #Morbid obesity - poor prognosticator in severe covid 19 presentations DVT Ppx: heparin 5000 units q8hr Dispo: IMCU The high probability of a clinically significant, sudden or life threatening deterioration of the [pulmonary, neuro] system(s) required my full and direct attention, intervention and personal management. The aggregate critical care time was [60] minutes. This time is in addition to time spent performing reported procedures but includes the following: [x] Data Review and interpretation [x] Patient assessment and monitoring of vital signs [x] Documentation [x] Medication orders and management History Interval history: Doing well on encounter. Utilized bipap overnight. Improvements in sats this AM. Will continue high flow. Hospitalist Physical - Physical exam Narrative exam: GENERAL: Not in acute distress, sitting up in bed, morbidly obese . on hi flow nc with overlying nrb. HEENT: Normocephalic. Atraumatic. Patient has moist mucous membranes. NECK: Supple. Trachea midline. CHEST/LUNGS: Bilateral crackles. HEART/CARDIOVASCULAR: Regular in rate and rhythm. S1 and S2 positive. ABDOMEN: Abdomen is soft, nontender. Patient has normal bowel sounds. SKIN: There is no rash. Warm and dry. NEURO: No focal motor deficit. Follows command. MUSCULOSKELETAL: No joint effusion or tenderness. EXTRIMITY: No edema, no cyanosis or clubbing. PSYCH: Cooperative. - Constitutional Vitals: Temp Pulse Resp BP Pulse Ox 98.1 F 64 34 H 143/94 97 05/02/21 12:00 05/02/21 10:30 05/02/21 10:30 05/02/21 10:30 05/02/21 10:30 General appearance: Present: no acute distress, obese Results - Labs CBC & Chem 7: 05/02/21 05:20 05/02/21 05:20 Labs: Laboratory Last Values WBC 21.3 K/mm3 (4.5-11.0) H 05/02/21 05:20 RBC 4.59 M/mm3 (3.65-5.03) 05/02/21 05:20 Hgb 13.3 gm/dl (11.8-15.2) 05/02/21 05:20 Hct 40.7 % (35.5-45.6) 05/02/21 05:20 MCV 89 fl (84-94) 05/02/21 05:20 MCH 29 pg (28-32) 05/02/21 05:20 MCHC 33 % (32-34) 05/02/21 05:20 RDW 13.2 % (13.2-15.2) 05/02/21 05:20 Plt Count 198 K/mm3 (140-440) 05/02/21 05:20 Lymph % (Auto) 9.5 % (13.4-35.0) L 04/28/21 12:51 [place] % (Auto) 6.7 % (0.0-7.3) 04/28/21 12:51 Eos % (Auto) 2.1 % (0.0-4.3) 04/28/21 12:51 Baso % (Auto) 0.5 % (0.0-1.8) 04/28/21 12:51 Lymph # (Auto) 1.4 K/mm3 (1.2-5.4) 04/28/21 12:51 [place] # (Auto) 1.0 K/mm3 (0.0-0.8) H 04/28/21 12:51 Eos # (Auto) 0.3 K/mm3 (0.0-0.4) 04/28/21 12:51 Baso # (Auto) 0.1 K/mm3 (0.0-0.1) 04/28/21 12:51 Add Manual Diff Complete 04/30/21 04:59 Total Counted 100 04/30/21 04:59 Seg Neutrophils % Reproductive Surgeon 05/02/21 05:20 Seg Neuts % (Manual) 88.0 % (40.0-70.0) H 04/30/21 04:59 Band Neutrophils % 4.0 % 04/30/21 04:59 Lymphocytes % (Manual) 0 % (13.4-35.0) L 04/30/21 04:59 Reactive Lymphs % (Man) 0 % 04/30/21 04:59 Monocytes % (Manual) 7.0 % (0.0-7.3) 04/30/21 04:59 Eosinophils % (Manual) 0 % (0.0-4.3) 04/30/21 04:59 Basophils % (Manual) 0 % (0.0-1.8) 04/30/21 04:59 Metamyelocytes % 0 % 04/30/21 04:59 Myelocytes % 1.0 % 04/30/21 04:59 Promyelocytes % 0 % 04/30/21 04:59 Blast Cells % 0 % 04/30/21 04:59 Nucleated RBC % Not Reportable 04/30/21 04:59 Seg Neutrophils # 12.1 K/mm3 (1.8-7.7) H 04/28/21 12:51 Seg Neutrophils # Man 26.8 K/mm3 (1.8-7.7) H 04/30/21 04:59 Band Neutrophils # 1.2 K/mm3 04/30/21 04:59 Lymphocytes # (Manual) 0.0 K/mm3 (1.2-5.4) L 04/30/21 04:59 Abs React Lymphs (Man) 0.0 K/mm3 04/30/21 04:59 Monocytes # (Manual) 2.1 K/mm3 (0.0-0.8) H 04/30/21 04:59 Eosinophils # (Manual) 0.0 K/mm3 (0.0-0.4) 04/30/21 04:59 Basophils # (Manual) 0.0 K/mm3 (0.0-0.1) 04/30/21 04:59 Metamyelocytes # 0.0 K/mm3 04/30/21 04:59 Myelocytes # 0.3 K/mm3 04/30/21 04:59 Promyelocytes # 0.0 K/mm3 04/30/21 04:59 Blast Cells # 0.0 K/mm3 04/30/21 04:59 WBC Morphology Not Reportable 04/30/21 04:59 Hypersegmented Neuts Not Reportable 04/30/21 04:59 Hyposegmented Neuts Not Reportable 04/30/21 04:59 Hypogranular Neuts Not Reportable 04/30/21 04:59 Smudge Cells Not Reportable 04/30/21 04:59 Toxic Granulation Not Reportable 04/30/21 04:59 Toxic Vacuolation Not Reportable 04/30/21 04:59 Dohle Bodies Not Reportable 04/30/21 04:59 Pelger-Huet Anomaly Not Reportable 04/30/21 04:59 Dang Rods Not Reportable 04/30/21 04:59 Platelet Estimate Appears normal 04/30/21 04:59 Clumped Platelets Not Reportable 04/30/21 04:59 Plt Clumps, EDTA Not Reportable 04/30/21 04:59 Large Platelets Not Reportable 04/30/21 04:59 Giant Platelets Not Reportable 04/30/21 04:59 Platelet Satelliting Not Reportable 04/30/21 04:59 Plt Morphology Comment Not Reportable 04/30/21 04:59 RBC Morphology Normal 04/30/21 04:59 Dimorphic RBCs Not Reportable 04/30/21 04:59 Polychromasia Not Reportable 04/30/21 04:59 Hypochromasia Not Reportable 04/30/21 04:59 Poikilocytosis Not Reportable 04/30/21 04:59 Anisocytosis Not Reportable 04/30/21 04:59 Microcytosis Not Reportable 04/30/21 04:59 Macrocytosis Not Reportable 04/30/21 04:59 Spherocytes Not Reportable 04/30/21 04:59 Pappenheimer Bodies Not Reportable 04/30/21 04:59 Sickle Cells Not Reportable 04/30/21 04:59 Target Cells Not Reportable 04/30/21 04:59 Tear Drop Cells Not Reportable 04/30/21 04:59 Ovalocytes Not Reportable 04/30/21 04:59 Helmet Cells Not Reportable 04/30/21 04:59 [place] Bodies Not Reportable 04/30/21 04:59 [place] Rings Not Reportable 04/30/21 04:59 Lonnie Cells Not Reportable 04/30/21 04:59 Bite Cells Not Reportable 04/30/21 04:59 Crenated Cell Not Reportable 04/30/21 04:59 Elliptocytes Not Reportable 04/30/21 04:59 Acanthocytes (Spur) Not Reportable 04/30/21 04:59 Rouleaux Not Reportable 04/30/21 04:59 Hemoglobin C Crystals Not Reportable 04/30/21 04:59 Schistocytes Not Reportable 04/30/21 04:59 Malaria parasites Not Reportable 04/30/21 04:59 Yury Bodies Not Reportable 04/30/21 04:59 Hem Pathologist Commnt No 04/30/21 04:59 PT 13.8 Sec. (12.2-14.9) 04/28/21 12:51 INR 0.96 (0.87-1.13) 04/28/21 12:51 APTT 27.0 Sec. (24.2-36.6) 04/28/21 12:51 D-Dimer 590.58 ng/mlDDU (0-234) H 05/02/21 05:20 ABG pH 7.404 (7.320-7.450) 04/30/21 11:40 POC ABG pCO2 40.8 mmHg (32.0-48.0) 04/30/21 11:40 ABG pCO2 36.2 mm Hg 04/18/21 Unknown POC ABG pO2 71.9 mmHg (83-108) L 04/30/21 11:40 ABG pO2 134.6 mm Hg (80.0-90.0) H 04/18/21 Unknown POC ABG HCO3 24.9 04/30/21 11:40 ABG HCO3 21.0 mmol/L (20.0-26.0) 04/18/21 Unknown ABG O2 Saturation 94.4 (0-100) 04/30/21 11:40 ABG O2 Content 22.0 (0.0-44) 04/18/21 Unknown POC ABG Base Excess 0.2 04/30/21 11:40 ABG Base Excess -3.3 mmol/L (-2.0-3.0) L 04/18/21 Unknown ABG Hemoglobin 14.6 (12.0-17.5) 04/30/21 11:40 ABG Oxyhemoglobin 93.6 (94-98) L 04/30/21 11:40 ABG Carboxyhemoglobin 0.7 % (0.0-5.0) 04/18/21 Unknown ABG Methemoglobin 0.3 (0.0-1.5) 04/30/21 11:40 ABG Sodium 132.7 mmol/L (136.0-145.0) L 04/30/21 11:40 ABG Potassium 4.4 mmol/L (3.40-4.50) 04/30/21 11:40 ABG Chloride 97.0 mmol/L (98-107) L 04/30/21 11:40 ABG Glucose 191 mg/dL (65-95) H 04/30/21 11:40 Oxyhemoglobin 97.2 % (95.0-99.0) 04/18/21 Unknown Carboxyhemoglobin 0.5 (0.5-1.5) 04/30/21 11:40 FiO2 100 % 04/18/21 Unknown FiO2 % 100 04/30/21 11:40 Sodium 136 mmol/L (137-145) L 05/02/21 05:20 Potassium 5.1 mmol/L (3.6-5.0) H 05/02/21 05:20 Chloride 97.1 mmol/L (98-107) L 05/02/21 05:20 Carbon Dioxide 24 mmol/L (22-30) 05/02/21 05:20 Anion Gap 20 mmol/L 05/02/21 05:20 BUN 19 mg/dL (9-20) 05/02/21 05:20 Creatinine 0.6 mg/dL (0.8-1.3) L 05/02/21 05:20 Estimated GFR > 60 ml/min 05/02/21 05:20 BUN/Creatinine Ratio 32 % 05/02/21 05:20 Glucose 204 mg/dL (75-100) H 05/02/21 05:20 POC Glucose 236 mg/dL (70-105) H 05/01/21 22:14 Lactic Acid 1.10 mmol/L (0.7-2.0) 04/16/21 21:18 Calcium 9.0 mg/dL (8.4-10.2) 05/02/21 05:20 Phosphorus 4.40 mg/dL (2.5-4.5) 05/01/21 18:45 Magnesium 2.10 mg/dL (1.7-2.3) 05/01/21 18:45 Ferritin 692.6 ng/mL (30.0-300.0) H 05/02/21 05:20 Total Bilirubin 0.70 mg/dL (0.1-1.2) 05/02/21 05:20 AST 25 units/L (5-40) 05/02/21 05:20 ALT 53 units/L (7-56) 05/02/21 05:20 Alkaline Phosphatase 109 units/L (35-129) 05/02/21 05:20 Lactate Dehydrogenase 775 units/L (91-180) H 05/02/21 05:20 C-Reactive Protein 0.20 mg/dL (0.00-1.30) 05/02/21 05:20 NT-Pro-B Natriuret Pep 79.47 pg/mL (0-900) 04/17/21 16:40 Total Protein 5.8 g/dL (6.3-8.2) L 05/02/21 05:20 Albumin 3.5 g/dL (3.9-5) L 05/02/21 05:20 Albumin/Globulin Ratio 1.5 % 05/02/21 05:20 Procalcitonin 0.15 ng/mL (<0.15) 04/17/21 16:40 Arterial Blood Glucose 191 mg/dL (65-95) H 04/30/21 11:40 Arterial Blood Ionized Calcium 4.8 mg/dL (4.6-5.3) 04/30/21 11:40 Coronavirus (PCR) Positive (Negative) A 04/20/21 Unknown Martin/IV: Voiding Method Urinal Active Medications - Current Medications Current Medications: Generic Name Dose Route Start Last Admin Trade Name Freq PRN Reason Stop Dose Admin Acetaminophen 650 mg 04/17/21 01:45 04/28/21 13:17 Acetaminophen 325 Mg Tab PO 650 mg Q4H PRN Administration Pain MILD(1-3)/Fever >100.5/ALEXANDER Albuterol 2.5 mg 04/17/21 01:45 04/25/21 22:20 Albuterol 2.5 Mg/3 Ml Nebu IH 2.5 mg Q4HRT PRN Administration Shortness Of Breath Alprazolam 0.25 mg 04/17/21 22:00 05/01/21 22:17 Alprazolam 0.25 Mg Tab PO 0.25 mg QHS DEIRDRE Administration Apixaban 5 mg 04/28/21 22:00 05/02/21 09:56 Apixaban 5 Mg Tab PO 5 mg Q12HR DEIRDRE Administration Protocol Ascorbic Acid 1,000 mg 04/17/21 02:00 05/02/21 09:56 Ascorbic Acid 500 Mg Tab PO 1,000 mg Q12HR DEIRDRE Administration Benzonatate 100 mg 04/17/21 06:00 05/02/21 14:15 Benzonatate 100 Mg Cap PO 100 mg Q8HR DEIRDRE Administration Budesonide 0.5 mg 04/29/21 20:00 05/02/21 10:39 Budesonide 0.5 Mg/2 Ml Nebu IH 0.5 mg Q12HRT DEIRDRE Administration Buspirone HCl 10 mg 04/30/21 12:00 05/02/21 09:56 Buspirone 10 Mg Tab PO 10 mg BID DEIRDRE Administration Cyclobenzaprine HCl 10 mg 04/17/21 01:49 04/30/21 21:17 Cyclobenzaprine 10 Mg Tab PO 10 mg TID PRN Administration Spasms Famotidine 20 mg 04/25/21 10:00 05/02/21 09:56 Famotidine 20 Mg Tab PO 20 mg BID DEIRDRE Administration Gabapentin 300 mg 04/17/21 08:00 05/02/21 14:15 Gabapentin 300 Mg Cap PO 300 mg TID DEIRDRE Administration Hydralazine HCl 10 mg 04/17/21 02:00 04/22/21 19:16 Hydralazine 20 Mg/1 Ml Inj IV 10 mg Q6H PRN Administration Blood Pressure Hydromorphone HCl 0.5 mg 04/17/21 01:45 04/29/21 04:48 Hydromorphone 1 Mg/1 Ml Inj IV 0.5 mg Q3H PRN Administration Pain , Severe (7-10) Lorazepam 0.5 mg 04/21/21 08:44 04/29/21 02:39 Lorazepam 2 Mg/Ml Vial IV 0.5 mg Q4H PRN Administration Anxiety Methylprednisolone Sodium Succinate 60 mg 05/01/21 12:00 05/02/21 12:29 Methylprednisolone Sod Succinate 125 Mg/2 Ml Inj IV 60 mg Q6HR DEIRDRE Administration Morphine Sulfate 2 mg 04/17/21 01:45 04/28/21 18:07 Morphine 2 Mg/1 Ml Inj IV 2 mg Q4H PRN Administration Pain, Moderate (4-6) Ondansetron HCl 4 mg 04/17/21 01:45 04/18/21 07:48 Ondansetron 4 Mg/2 Ml Inj IV 4 mg Q8H PRN Administration Nausea And Vomiting Sodium Chloride 10 ml 04/17/21 10:00 05/02/21 09:57 Sodium Chloride 0.9% 10 Ml Flush Syringe IV 10 ml BID DEIRDRE Administration Sodium Chloride 10 ml 04/17/21 01:45 Sodium Chloride 0.9% 10 Ml Flush Syringe IV PRN PRN LINE FLUSH Zinc Sulfate 220 mg 04/17/21 22:00 05/02/21 09:56 Zinc Sulfate 220 Mg Cap PO 220 mg BID DEIRDRE Administration Nutrition/Malnutrition Assess - Dietary Evaluation Nutrition/Malnutrition Findings: Nutrition Notes Start: 04/24/21 17:14 Freq: Status: Active Protocol: Document 04/24/21 17:14 TEDDY (Rec: 04/24/21 17:41 TEDDY [id number]) Nutrition Notes Need for Assessment generated from: LOS Initial or Follow up Assessment Current Diagnosis Coronary Artery Disease, Hypertension,Respiratory Failure Other Pertinent Diagnosis COVID-19, Pneumonia, AHRF, ARDS, ANKUSH. Current Diet Cardiac Diet (since 04/17). Labs/Tests 04/22: Cl 108.6, CO2 21, BUN 28, Crea 0.6, Glu 115. Pertinent Medications 04/24: Vit C, ZnSO4, others nutritionally unremarkable. Height 5 ft 8 in Weight 161 kg Capac Body Weight (kg) 70.00 BMI 53.9 Intake Prior to Admission Good Weight change and time frame None reported at admission. Weight Status Morbidly Obese Subjective/Other Information RD consult for LOS assessment. Pt's PO intake of meals is Good (75-100%), according to ADL notes. Percent of energy/protein needs met: Prescribed Cardiac Diet provides for energy/protein needs (2,230 Kcal/85 g) during LOS. Burn Absent Trauma Absent GI Symptoms None Food Allergy No Skin Integrity/Comment Clear, warm, dry. Current % PO Good (75-100%) Minimum of two criteria No Is patient on ventilator? No Is Patient Ambulatory and/or Out of Bed Yes REE-([place]-St. Jeor-ambulatory/OOB) [ 3164.850 [id number]] Kcal/Kg value to use for calculation 9 Approximate Energy Requirements Using 1449 kcal/Kg Calculation Used for Recommendations Kcal/kg Additional Notes Protein: 0.8-1 g/Kg; 93-116 g/ day. Fluids: 1 ml/Kcal, or as per MD. Nutrition Intervention Change Diet Order: Continue Cardiac Diet. Revisit per MD consult or patient Sign Off request: Additional Comments Continue monitoring food tolerance, %PO intake of meals , and BM.
--- NOTE | 2021-05-02 14:48 | Progress Note ---
Assessment and Plan Acute Hypoxemic Respiratory Failure ARDS ANKUSH COVID-19 infection Bilateral pneumonia Leukopenia Morbid obesity Thrombocytopenia Elevated serum transaminases - continue BIPAP qhs (prn daytime use) - continue to watch closely in step-down unit - continue care as below otherwise; - dopplers negative for VTE - continue to wean supplemental oxygen for target O2 sat's > 90% acutely - aspiration precautions - continue bronchodilators with pulmonary hygiene per RT - avoid nephrotoxins, renally dose all medications - avoid benzodiazepine's, reduce the possibility of delirium - s/p AB's per ID rec's - continue accuchecks with glycemic control per SSI (While critically ill target blood glucose of 140-180 mg/dL; avoid hypoglycemia) - prn analgesia per pain score - Maintenance of sleep-wake cycle, avoid delirium - G.I. & VTE prophylaxis - PT/OT/ROM exercises - continue mobility protocols for pressure ulcer prophylaxis - Monitor hemodynamics closely - continue other care per attending / other consultants - discharge planning ongoing concurrently COVID SPECIFIC INTERVENTIONS - Remdesivir as per ID/Pulmonary developed protocols (received) - continue systemic steroids for severe COVID-19 infection empirically (Decadron) - follow repeat COVID tests results - zinc and vitamin C supplementation - Monitor inflammatory markers per facility protocol - ferritin, Ddimer, CRP - therapeutic anticoagulation per system Protocol based on d-dimer and clinical considerations (VTE prophylaxis) - Continue contact and airborne isolation .... Re-evaluate in am & prn CONDITION: CRITICAL PROGNOSIS: GUARDED CODE STATUS: FULL CODE The high probability of a clinically significant, sudden or life-threatening deterioration of the [respiratory, ID & cardiovascular] system(s) required my full and direct attention, intervention and personal management. The aggregate critical care time was [32] minutes without overlap. Time includes spent on; [x] Data Review and interpretation [x] Patient assessment and monitoring of vital signs [x] Documentation [x] Medication orders and management Subjective Date of service: 05/02/21 Principal diagnosis: AHRF; ARDS; ANKUSH; COVID-19 infxn; Pneumonia; Morbid Obesity Interval history: Patient is seen today for: Acute Hypoxemic Respiratory Failure; ARDS; ANKUSH; COVID-19 infxn; Pneumonia Seen and examined at bedside; 24hour events reviewed; nursing and respiratory care staff consulted; no adverse overnight events reported to me; resting in bed; remains on 100% FiO2 via Vapotherm HFNC Objective Vital Signs - 12hr 05/02/21 05/02/21 05/02/21 03:00 03:30 04:00 Temperature 97.3 F L Pulse Rate 69 63 56 L Pulse Rate [ 80 From Monitor] Pulse Rate [ Posterior] Respiratory 18 21 21 Rate Respiratory Rate [Posterior ] Blood Pressure 152/82 152/82 132/70 O2 Sat by Pulse 97 92 95 Oximetry 05/02/21 05/02/21 05/02/21 04:30 04:37 05:00 Temperature Pulse Rate 72 51 L 61 Pulse Rate [ From Monitor] Pulse Rate [ Posterior] Respiratory 29 H 30 H 22 Rate Respiratory Rate [Posterior ] Blood Pressure 132/70 132/70 142/72 O2 Sat by Pulse 98 98 97 Oximetry 05/02/21 05/02/21 05/02/21 05:30 06:00 06:30 Temperature Pulse Rate 59 L 57 L 64 Pulse Rate [ From Monitor] Pulse Rate [ Posterior] Respiratory 21 17 16 Rate Respiratory Rate [Posterior ] Blood Pressure 142/72 136/69 136/69 O2 Sat by Pulse 97 98 98 Oximetry 05/02/21 05/02/21 05/02/21 07:00 07:30 08:00 Temperature 98.8 F Pulse Rate 59 L 55 L 61 Pulse Rate [ 82 From Monitor] Pulse Rate [ Posterior] Respiratory 18 20 16 Rate Respiratory Rate [Posterior ] Blood Pressure 141/74 141/74 147/90 O2 Sat by Pulse 96 99 93 Oximetry 05/02/21 05/02/21 05/02/21 08:30 09:00 09:30 Temperature Pulse Rate 73 53 L 58 L Pulse Rate [ From Monitor] Pulse Rate [ 71 Posterior] Respiratory 26 H 21 16 Rate Respiratory 19 Rate [Posterior ] Blood Pressure 147/90 154/82 154/82 O2 Sat by Pulse 97 97 93 Oximetry 05/02/21 05/02/21 05/02/21 10:00 10:30 12:00 Temperature 98.1 F Pulse Rate 102 H 64 Pulse Rate [ From Monitor] Pulse Rate [ Posterior] Respiratory 33 H 34 H Rate Respiratory Rate [Posterior ] Blood Pressure 143/94 143/94 O2 Sat by Pulse 92 97 Oximetry Constitutional: alert, appears uncomfortable, other (middle aged morbidly obese male with mildly increased respiratory effort at rest) Eyes: non-icteric ENT: oropharynx moist Neck: supple, no lymphadenopathy, no JVD, other (large circumference) Effort: mildly labored Ascultation: Bilateral: diminished breath sounds, rhonchi Percussion: Bilateral: not dull Cardiovascular: irregular rhythm, other (Patient tachycardic rate varies from 120 to 140.) Gastrointestinal: normoactive bowel sounds, soft, non-tender, non-distended (protuberant) Integumentary: normal Extremities: no cyanosis, pink and warm, pulses normal, no ischemia or petec hiae, edema (trace) Neurologic: normal mental status, non-focal exam, pupils equal and round, CN II- XII normal Psychiatric: mood appropriate, affect normal CBC and BMP: 05/02/21 05:20 05/02/21 05:20 ABG, PT/INR, D-dimer: ABG ABG pH 7.404 (7.320-7.450) 04/30/21 11:40 POC ABG pCO2 40.8 mmHg (32.0-48.0) 04/30/21 11:40 ABG pCO2 36.2 mm Hg 04/18/21 Unknown POC ABG pO2 71.9 mmHg (83-108) L 04/30/21 11:40 ABG pO2 134.6 mm Hg (80.0-90.0) H 04/18/21 Unknown POC ABG HCO3 24.9 04/30/21 11:40 ABG O2 Saturation 94.4 (0-100) 04/30/21 11:40 PT/INR, D-dimer PT 13.8 Sec. (12.2-14.9) 04/28/21 12:51 INR 0.96 (0.87-1.13) 04/28/21 12:51 D-Dimer 590.58 ng/mlDDU (0-234) H 05/02/21 05:20 Abnormal lab findings: Abnormal Labs 04/16/21 04/16/21 04/17/21 21:18 21:18 16:40 WBC 3.5 L RDW Plt Count 85 L Lymph % (Auto) [place] % (Auto) Lymph # (Auto) 0.7 L [place] # (Auto) Seg Neutrophils % 74.2 H Seg Neuts % (Manual) Lymphocytes % (Manual) Seg Neutrophils # Seg Neutrophils # Man Lymphocytes # (Manual) Monocytes # (Manual) D-Dimer ABG pH POC ABG pO2 ABG pO2 ABG HCO3 ABG O2 Saturation ABG Base Excess ABG Hemoglobin ABG Oxyhemoglobin ABG Sodium ABG Chloride ABG Glucose Oxyhemoglobin Carboxyhemoglobin Sodium 132 L Potassium Chloride 93.8 L Carbon Dioxide BUN Creatinine 0.7 L Glucose 125 H POC Glucose Calcium 8.2 L Ferritin 1918.0 H AST 83 H ALT 63 H Lactate Dehydrogenase C-Reactive Protein Total Protein Albumin 3.7 L Arterial Blood Glucose Arterial Blood Ionized Calcium Coronavirus (PCR) 04/17/21 04/17/21 04/17/21 16:40 16:40 16:40 WBC RDW Plt Count Lymph % (Auto) [place] % (Auto) Lymph # (Auto) [place] # (Auto) Seg Neutrophils % Seg Neuts % (Manual) Lymphocytes % (Manual) Seg Neutrophils # Seg Neutrophils # Man Lymphocytes # (Manual) Monocytes # (Manual) D-Dimer 306.45 H ABG pH POC ABG pO2 ABG pO2 ABG HCO3 ABG O2 Saturation ABG Base Excess ABG Hemoglobin ABG Oxyhemoglobin ABG Sodium ABG Chloride ABG Glucose Oxyhemoglobin Carboxyhemoglobin Sodium 135 L Potassium Chloride 96.2 L Carbon Dioxide BUN Creatinine Glucose 155 H POC Glucose Calcium Ferritin AST 72 H ALT 68 H Lactate Dehydrogenase 505 H C-Reactive Protein 16.30 H Total Protein Albumin 3.5 L Arterial Blood Glucose Arterial Blood Ionized Calcium Coronavirus (PCR) 04/17/21 04/17/21 04/18/21 18:45 Unknown 03:53 WBC RDW 13.1 L Plt Count 115 L Lymph % (Auto) 13.0 L [place] % (Auto) 8.7 H Lymph # (Auto) 1.0 L [place] # (Auto) Seg Neutrophils % 78.2 H Seg Neuts % (Manual) Lymphocytes % (Manual) Seg Neutrophils # Seg Neutrophils # Man Lymphocytes # (Manual) Monocytes # (Manual) D-Dimer ABG pH POC ABG pO2 ABG pO2 56.8 L ABG HCO3 27.4 H ABG O2 Saturation 90.8 L ABG Base Excess 3.1 H ABG Hemoglobin 11.3 L 13.7 L ABG Oxyhemoglobin ABG Sodium ABG Chloride ABG Glucose Oxyhemoglobin 89.4 L Carboxyhemoglobin Sodium Potassium Chloride Carbon Dioxide BUN Creatinine Glucose POC Glucose Calcium Ferritin AST ALT Lactate Dehydrogenase C-Reactive Protein Total Protein Albumin Arterial Blood Glucose Arterial Blood Ionized Calcium Coronavirus (PCR) 04/18/21 04/18/21 04/18/21 03:53 08:02 Unknown WBC RDW Plt Count Lymph % (Auto) [place] % (Auto) Lymph # (Auto) [place] # (Auto) Seg Neutrophils % Seg Neuts % (Manual) Lymphocytes % (Manual) Seg Neutrophils # Seg Neutrophils # Man Lymphocytes # (Manual) Monocytes # (Manual) D-Dimer ABG pH POC ABG pO2 ABG pO2 64.3 L 134.6 H ABG HCO3 26.9 H ABG O2 Saturation 93.6 L ABG Base Excess -3.3 L ABG Hemoglobin 11.9 L ABG Oxyhemoglobin ABG Sodium ABG Chloride ABG Glucose Oxyhemoglobin 92.3 L Carboxyhemoglobin Sodium 135 L Potassium Chloride 95.9 L Carbon Dioxide BUN Creatinine 0.7 L Glucose 149 H POC Glucose Calcium Ferritin AST 62 H ALT 59 H Lactate Dehydrogenase C-Reactive Protein Total Protein Albumin 3.3 L Arterial Blood Glucose Arterial Blood Ionized Calcium Coronavirus (PCR) 04/19/21 04/19/21 04/19/21 01:37 07:28 08:44 WBC RDW Plt Count Lymph % (Auto) [place] % (Auto) Lymph # (Auto) [place] # (Auto) Seg Neutrophils % Seg Neuts % (Manual) Lymphocytes % (Manual) Seg Neutrophils # Seg Neutrophils # Man Lymphocytes # (Manual) Monocytes # (Manual) D-Dimer ABG pH POC ABG pO2 56.3 L ABG pO2 ABG HCO3 ABG O2 Saturation ABG Base Excess ABG Hemoglobin ABG Oxyhemoglobin 88.3 L ABG Sodium 132.8 L ABG Chloride 96.0 L ABG Glucose 145 H Oxyhemoglobin Carboxyhemoglobin 0.4 L Sodium Potassium Chloride 97.4 L Carbon Dioxide BUN Creatinine 0.7 L Glucose 130 H POC Glucose 135 H Calcium Ferritin AST 53 H ALT Lactate Dehydrogenase C-Reactive Protein Total Protein Albumin 3.6 L Arterial Blood Glucose 145 H Arterial Blood Ionized Calcium 4.5 L Coronavirus (PCR) 04/19/21 04/19/21 04/19/21 08:44 11:30 16:53 WBC RDW 12.8 L Plt Count Lymph % (Auto) [place] % (Auto) Lymph # (Auto) [place] # (Auto) Seg Neutrophils % Seg Neuts % (Manual) Lymphocytes % (Manual) Seg Neutrophils # Seg Neutrophils # Man Lymphocytes # (Manual) Monocytes # (Manual) D-Dimer ABG pH POC ABG pO2 ABG pO2 ABG HCO3 ABG O2 Saturation ABG Base Excess ABG Hemoglobin ABG Oxyhemoglobin ABG Sodium ABG Chloride ABG Glucose Oxyhemoglobin Carboxyhemoglobin Sodium Potassium Chloride Carbon Dioxide BUN Creatinine Glucose POC Glucose 129 H 146 H Calcium Ferritin AST ALT Lactate Dehydrogenase C-Reactive Protein Total Protein Albumin Arterial Blood Glucose Arterial Blood Ionized Calcium Coronavirus (PCR) 04/19/21 04/19/21 04/20/21 17:21 21:07 07:18 WBC RDW Plt Count Lymph % (Auto) [place] % (Auto) Lymph # (Auto) [place] # (Auto) Seg Neutrophils % Seg Neuts % (Manual) Lymphocytes % (Manual) Seg Neutrophils # Seg Neutrophils # Man Lymphocytes # (Manual) Monocytes # (Manual) D-Dimer ABG pH 7.480 H POC ABG pO2 108.6 H ABG pO2 ABG HCO3 ABG O2 Saturation ABG Base Excess ABG Hemoglobin ABG Oxyhemoglobin ABG Sodium 134.1 L ABG Chloride 97.0 L ABG Glucose 167 H Oxyhemoglobin Carboxyhemoglobin 0.4 L Sodium Potassium Chloride Carbon Dioxide BUN Creatinine Glucose POC Glucose 152 H 128 H Calcium Ferritin AST ALT Lactate Dehydrogenase C-Reactive Protein Total Protein Albumin Arterial Blood Glucose 167 H Arterial Blood Ionized Calcium Coronavirus (PCR) 04/20/21 04/20/21 04/20/21 11:08 11:08 11:08 WBC RDW Plt Count Lymph % (Auto) [place] % (Auto) Lymph # (Auto) [place] # (Auto) Seg Neutrophils % Seg Neuts % (Manual) Lymphocytes % (Manual) Seg Neutrophils # Seg Neutrophils # Man Lymphocytes # (Manual) Monocytes # (Manual) D-Dimer 1082.55 H ABG pH POC ABG pO2 ABG pO2 ABG HCO3 ABG O2 Saturation ABG Base Excess ABG Hemoglobin ABG Oxyhemoglobin ABG Sodium ABG Chloride ABG Glucose Oxyhemoglobin Carboxyhemoglobin Sodium Potassium Chloride Carbon Dioxide BUN 26 H Creatinine Glucose 121 H POC Glucose Calcium Ferritin 1389.0 H AST 46 H ALT Lactate Dehydrogenase 647 H C-Reactive Protein 5.50 H Total Protein Albumin 3.5 L Arterial Blood Glucose Arterial Blood Ionized Calcium Coronavirus (PCR) 04/20/21 04/20/21 04/20/21 11:08 16:04 21:10 WBC RDW 12.9 L Plt Count Lymph % (Auto) [place] % (Auto) 14.0 H Lymph # (Auto) [place] # (Auto) 0.9 H Seg Neutrophils % Seg Neuts % (Manual) Lymphocytes % (Manual) Seg Neutrophils # Seg Neutrophils # Man Lymphocytes # (Manual) Monocytes # (Manual) D-Dimer ABG pH POC ABG pO2 ABG pO2 ABG HCO3 ABG O2 Saturation ABG Base Excess ABG Hemoglobin ABG Oxyhemoglobin ABG Sodium ABG Chloride ABG Glucose Oxyhemoglobin Carboxyhemoglobin Sodium Potassium Chloride Carbon Dioxide BUN Creatinine Glucose POC Glucose 159 H 149 H Calcium Ferritin AST ALT Lactate Dehydrogenase C-Reactive Protein Total Protein Albumin Arterial Blood Glucose Arterial Blood Ionized Calcium Coronavirus (PCR) 04/20/21 04/21/21 04/21/21 Unknown 11:34 11:34 WBC RDW 13.1 L Plt Count Lymph % (Auto) [place] % (Auto) 13.0 H Lymph # (Auto) [place] # (Auto) 1.2 H Seg Neutrophils % 70.4 H Seg Neuts % (Manual) Lymphocytes % (Manual) Seg Neutrophils # Seg Neutrophils # Man Lymphocytes # (Manual) Monocytes # (Manual) D-Dimer ABG pH POC ABG pO2 ABG pO2 ABG HCO3 ABG O2 Saturation ABG Base Excess ABG Hemoglobin ABG Oxyhemoglobin ABG Sodium ABG Chloride ABG Glucose Oxyhemoglobin Carboxyhemoglobin Sodium Potassium Chloride Carbon Dioxide BUN 27 H Creatinine Glucose 107 H POC Glucose Calcium Ferritin AST 46 H ALT Lactate Dehydrogenase C-Reactive Protein Total Protein Albumin 3.4 L Arterial Blood Glucose Arterial Blood Ionized Calcium Coronavirus (PCR) Positive A 04/21/21 04/21/21 04/22/21 17:00 22:05 04:49 WBC RDW Plt Count Lymph % (Auto) 12.2 L [place] % (Auto) 10.7 H Lymph # (Auto) [place] # (Auto) 1.1 H Seg Neutrophils % 76.6 H Seg Neuts % (Manual) Lymphocytes % (Manual) Seg Neutrophils # Seg Neutrophils # Man Lymphocytes # (Manual) Monocytes # (Manual) D-Dimer ABG pH POC ABG pO2 ABG pO2 ABG HCO3 ABG O2 Saturation ABG Base Excess ABG Hemoglobin ABG Oxyhemoglobin ABG Sodium ABG Chloride ABG Glucose Oxyhemoglobin Carboxyhemoglobin Sodium Potassium Chloride Carbon Dioxide BUN Creatinine Glucose POC Glucose 138 H 133 H Calcium Ferritin AST ALT Lactate Dehydrogenase C-Reactive Protein Total Protein Albumin Arterial Blood Glucose Arterial Blood Ionized Calcium Coronavirus (PCR) 04/22/21 04/22/21 04/22/21 04:49 04:49 04:49 WBC RDW Plt Count Lymph % (Auto) [place] % (Auto) Lymph # (Auto) [place] # (Auto) Seg Neutrophils % Seg Neuts % (Manual) Lymphocytes % (Manual) Seg Neutrophils # Seg Neutrophils # Man Lymphocytes # (Manual) Monocytes # (Manual) D-Dimer 1880.44 H ABG pH POC ABG pO2 ABG pO2 ABG HCO3 ABG O2 Saturation ABG Base Excess ABG Hemoglobin ABG Oxyhemoglobin ABG Sodium ABG Chloride ABG Glucose Oxyhemoglobin Carboxyhemoglobin Sodium Potassium Chloride 108.6 H Carbon Dioxide 21 L D BUN 28 H Creatinine 0.6 L Glucose 115 H POC Glucose Calcium Ferritin 1185.0 H AST 50 H ALT Lactate Dehydrogenase 759 H C-Reactive Protein 1.60 H Total Protein Albumin 3.1 L Arterial Blood Glucose Arterial Blood Ionized Calcium Coronavirus (PCR) 04/22/21 04/22/21 04/23/21 16:17 22:08 21:14 WBC RDW Plt Count Lymph % (Auto) [place] % (Auto) Lymph # (Auto) [place] # (Auto) Seg Neutrophils % Seg Neuts % (Manual) Lymphocytes % (Manual) Seg Neutrophils # Seg Neutrophils # Man Lymphocytes # (Manual) Monocytes # (Manual) D-Dimer ABG pH POC ABG pO2 ABG pO2 ABG HCO3 ABG O2 Saturation ABG Base Excess ABG Hemoglobin ABG Oxyhemoglobin ABG Sodium ABG Chloride ABG Glucose Oxyhemoglobin Carboxyhemoglobin Sodium Potassium Chloride Carbon Dioxide BUN Creatinine Glucose POC Glucose 158 H 134 H 159 H Calcium Ferritin AST ALT Lactate Dehydrogenase C-Reactive Protein Total Protein Albumin Arterial Blood Glucose Arterial Blood Ionized Calcium Coronavirus (PCR) 04/24/21 04/25/21 04/25/21 21:20 11:33 16:23 WBC RDW Plt Count Lymph % (Auto) [place] % (Auto) Lymph # (Auto) [place] # (Auto) Seg Neutrophils % Seg Neuts % (Manual) Lymphocytes % (Manual) Seg Neutrophils # Seg Neutrophils # Man Lymphocytes # (Manual) Monocytes # (Manual) D-Dimer ABG pH POC ABG pO2 ABG pO2 ABG HCO3 ABG O2 Saturation ABG Base Excess ABG Hemoglobin ABG Oxyhemoglobin ABG Sodium ABG Chloride ABG Glucose Oxyhemoglobin Carboxyhemoglobin Sodium Potassium Chloride Carbon Dioxide BUN Creatinine Glucose POC Glucose 161 H 126 H 176 H Calcium Ferritin AST ALT Lactate Dehydrogenase C-Reactive Protein Total Protein Albumin Arterial Blood Glucose Arterial Blood Ionized Calcium Coronavirus (PCR) 04/25/21 04/26/21 04/26/21 21:06 16:26 21:26 WBC RDW Plt Count Lymph % (Auto) [place] % (Auto) Lymph # (Auto) [place] # (Auto) Seg Neutrophils % Seg Neuts % (Manual) Lymphocytes % (Manual) Seg Neutrophils # Seg Neutrophils # Man Lymphocytes # (Manual) Monocytes # (Manual) D-Dimer ABG pH POC ABG pO2 ABG pO2 ABG HCO3 ABG O2 Saturation ABG Base Excess ABG Hemoglobin ABG Oxyhemoglobin ABG Sodium ABG Chloride ABG Glucose Oxyhemoglobin Carboxyhemoglobin Sodium Potassium Chloride Carbon Dioxide BUN Creatinine Glucose POC Glucose 214 H 119 H 114 H Calcium Ferritin AST ALT Lactate Dehydrogenase C-Reactive Protein Total Protein Albumin Arterial Blood Glucose Arterial Blood Ionized Calcium Coronavirus (PCR) 04/27/21 04/27/21 04/28/21 07:32 22:02 12:51 WBC 14.9 H RDW 12.8 L Plt Count Lymph % (Auto) 9.5 L [place] % (Auto) Lymph # (Auto) [place] # (Auto) 1.0 H Seg Neutrophils % 81.2 H Seg Neuts % (Manual) Lymphocytes % (Manual) Seg Neutrophils # 12.1 H Seg Neutrophils # Man Lymphocytes # (Manual) Monocytes # (Manual) D-Dimer ABG pH POC ABG pO2 ABG pO2 ABG HCO3 ABG O2 Saturation ABG Base Excess ABG Hemoglobin ABG Oxyhemoglobin ABG Sodium ABG Chloride ABG Glucose Oxyhemoglobin Carboxyhemoglobin Sodium Potassium Chloride Carbon Dioxide BUN Creatinine Glucose POC Glucose 109 H 127 H Calcium Ferritin AST ALT Lactate Dehydrogenase C-Reactive Protein Total Protein Albumin Arterial Blood Glucose Arterial Blood Ionized Calcium Coronavirus (PCR) 04/28/21 04/28/21 04/28/21 12:51 12:51 12:51 WBC RDW Plt Count Lymph % (Auto) [place] % (Auto) Lymph # (Auto) [place] # (Auto) Seg Neutrophils % Seg Neuts % (Manual) Lymphocytes % (Manual) Seg Neutrophils # Seg Neutrophils # Man Lymphocytes # (Manual) Monocytes # (Manual) D-Dimer 861.39 H ABG pH POC ABG pO2 ABG pO2 ABG HCO3 ABG O2 Saturation ABG Base Excess ABG Hemoglobin ABG Oxyhemoglobin ABG Sodium ABG Chloride ABG Glucose Oxyhemoglobin Carboxyhemoglobin Sodium 134 L Potassium Chloride 95.2 L Carbon Dioxide BUN Creatinine 0.6 L Glucose 121 H POC Glucose Calcium Ferritin AST ALT Lactate Dehydrogenase 769 H C-Reactive Protein Total Protein Albumin Arterial Blood Glucose Arterial Blood Ionized Calcium Coronavirus (PCR) 04/28/21 04/28/21 04/28/21 12:51 16:59 21:17 WBC RDW Plt Count Lymph % (Auto) [place] % (Auto) Lymph # (Auto) [place] # (Auto) Seg Neutrophils % Seg Neuts % (Manual) Lymphocytes % (Manual) Seg Neutrophils # Seg Neutrophils # Man Lymphocytes # (Manual) Monocytes # (Manual) D-Dimer ABG pH POC ABG pO2 ABG pO2 ABG HCO3 ABG O2 Saturation ABG Base Excess ABG Hemoglobin ABG Oxyhemoglobin ABG Sodium ABG Chloride ABG Glucose Oxyhemoglobin Carboxyhemoglobin Sodium Potassium Chloride Carbon Dioxide BUN Creatinine Glucose POC Glucose 124 H 146 H Calcium Ferritin 1009.0 H AST ALT Lactate Dehydrogenase C-Reactive Protein Total Protein Albumin Arterial Blood Glucose Arterial Blood Ionized Calcium Coronavirus (PCR) 04/29/21 04/30/21 04/30/21 21:28 04:59 04:59 WBC 30.4 H RDW Plt Count Lymph % (Auto) [place] % (Auto) Lymph # (Auto) [place] # (Auto) Seg Neutrophils % Seg Neuts % (Manual) 88.0 H Lymphocytes % (Manual) 0 L Seg Neutrophils # Seg Neutrophils # Man 26.8 H Lymphocytes # (Manual) 0.0 L Monocytes # (Manual) 2.1 H D-Dimer 592.16 H ABG pH POC ABG pO2 ABG pO2 ABG HCO3 ABG O2 Saturation ABG Base Excess ABG Hemoglobin ABG Oxyhemoglobin ABG Sodium ABG Chloride ABG Glucose Oxyhemoglobin Carboxyhemoglobin Sodium Potassium Chloride Carbon Dioxide BUN Creatinine Glucose POC Glucose 190 H Calcium Ferritin AST ALT Lactate Dehydrogenase C-Reactive Protein Total Protein Albumin Arterial Blood Glucose Arterial Blood Ionized Calcium Coronavirus (PCR) 04/30/21 04/30/21 04/30/21 04:59 04:59 07:32 WBC RDW Plt Count Lymph % (Auto) [place] % (Auto) Lymph # (Auto) [place] # (Auto) Seg Neutrophils % Seg Neuts % (Manual) Lymphocytes % (Manual) Seg Neutrophils # Seg Neutrophils # Man Lymphocytes # (Manual) Monocytes # (Manual) D-Dimer ABG pH POC ABG pO2 ABG pO2 ABG HCO3 ABG O2 Saturation ABG Base Excess ABG Hemoglobin ABG Oxyhemoglobin ABG Sodium ABG Chloride ABG Glucose Oxyhemoglobin Carboxyhemoglobin Sodium Potassium Chloride 97.4 L Carbon Dioxide BUN Creatinine 0.6 L Glucose 180 H POC Glucose 161 H Calcium Ferritin 789.6 H AST ALT 68 H Lactate Dehydrogenase 947 H C-Reactive Protein Total Protein Albumin 3.8 L Arterial Blood Glucose Arterial Blood Ionized Calcium Coronavirus (PCR) 04/30/21 04/30/21 04/30/21 11:02 11:40 16:24 WBC RDW Plt Count Lymph % (Auto) [place] % (Auto) Lymph # (Auto) [place] # (Auto) Seg Neutrophils % Seg Neuts % (Manual) Lymphocytes % (Manual) Seg Neutrophils # Seg Neutrophils # Man Lymphocytes # (Manual) Monocytes # (Manual) D-Dimer ABG pH POC ABG pO2 71.9 L ABG pO2 ABG HCO3 ABG O2 Saturation ABG Base Excess ABG Hemoglobin ABG Oxyhemoglobin 93.6 L ABG Sodium 132.7 L ABG Chloride 97.0 L ABG Glucose 191 H Oxyhemoglobin Carboxyhemoglobin Sodium Potassium Chloride Carbon Dioxide BUN Creatinine Glucose POC Glucose 203 H 205 H Calcium Ferritin AST ALT Lactate Dehydrogenase C-Reactive Protein Total Protein Albumin Arterial Blood Glucose 191 H Arterial Blood Ionized Calcium Coronavirus (PCR) 04/30/21 05/01/21 05/01/21 21:16 05:22 07:33 WBC RDW Plt Count Lymph % (Auto) [place] % (Auto) Lymph # (Auto) [place] # (Auto) Seg Neutrophils % Seg Neuts % (Manual) Lymphocytes % (Manual) Seg Neutrophils # Seg Neutrophils # Man Lymphocytes # (Manual) Monocytes # (Manual) D-Dimer ABG pH POC ABG pO2 ABG pO2 ABG HCO3 ABG O2 Saturation ABG Base Excess ABG Hemoglobin ABG Oxyhemoglobin ABG Sodium ABG Chloride ABG Glucose Oxyhemoglobin Carboxyhemoglobin Sodium Potassium Chloride Carbon Dioxide BUN Creatinine 0.6 L Glucose POC Glucose 184 H 199 H Calcium Ferritin AST ALT Lactate Dehydrogenase C-Reactive Protein Total Protein Albumin Arterial Blood Glucose Arterial Blood Ionized Calcium Coronavirus (PCR) 05/01/21 05/01/21 05/02/21 11:36 22:14 05:20 WBC 21.3 H RDW Plt Count Lymph % (Auto) [place] % (Auto) Lymph # (Auto) [place] # (Auto) Seg Neutrophils % Seg Neuts % (Manual) Lymphocytes % (Manual) Seg Neutrophils # Seg Neutrophils # Man Lymphocytes # (Manual) Monocytes # (Manual) D-Dimer ABG pH POC ABG pO2 ABG pO2 ABG HCO3 ABG O2 Saturation ABG Base Excess ABG Hemoglobin ABG Oxyhemoglobin ABG Sodium ABG Chloride ABG Glucose Oxyhemoglobin Carboxyhemoglobin Sodium Potassium Chloride Carbon Dioxide BUN Creatinine Glucose POC Glucose 196 H 236 H Calcium Ferritin AST ALT Lactate Dehydrogenase C-Reactive Protein Total Protein Albumin Arterial Blood Glucose Arterial Blood Ionized Calcium Coronavirus (PCR) 05/02/21 05/02/21 05/02/21 05:20 05:20 05:20 WBC RDW Plt Count Lymph % (Auto) [place] % (Auto) Lymph # (Auto) [place] # (Auto) Seg Neutrophils % Seg Neuts % (Manual) Lymphocytes % (Manual) Seg Neutrophils # Seg Neutrophils # Man Lymphocytes # (Manual) Monocytes # (Manual) D-Dimer 590.58 H ABG pH POC ABG pO2 ABG pO2 ABG HCO3 ABG O2 Saturation ABG Base Excess ABG Hemoglobin ABG Oxyhemoglobin ABG Sodium ABG Chloride ABG Glucose Oxyhemoglobin Carboxyhemoglobin Sodium 136 L Potassium 5.1 H Chloride 97.1 L Carbon Dioxide BUN Creatinine 0.6 L Glucose 204 H POC Glucose Calcium Ferritin 692.6 H AST ALT Lactate Dehydrogenase 775 H C-Reactive Protein Total Protein 5.8 L Albumin 3.5 L Arterial Blood Glucose Arterial Blood Ionized Calcium Coronavirus (PCR) Chest x-ray: pending Allied health notes reviewed: nursing
[2021-05-02 15:31] LABS: Basophils % (Manual) 0 % (0.0-1.8); Eosinophils % (Manual) 0 % (0.0-4.3); Total Cells Counted 100
[2021-05-02 15:32] LABS: Platelet Estimate Consistent w Auto; RBC Morphology Normal
[2021-05-02] MEDS: ALPRAZolam 0.25 MG TAB PO SCH (21:24)
[2021-05-03] MEDS: methylPREDNISolone Sod Succinate 125 MG/2 ML INJ IV SCH ×5 (00:21→23:28)
[2021-05-03] MEDS: BENZONATATE 100 MG CAP PO SCH ×3 (06:16→21:53)
[2021-05-03] MEDS: BUDESONIDE 0.5 MG/2 ML NEBU IH SCH (07:35)
[2021-05-03] MEDS: ALBUTEROL 2.5 MG/3 ML NEBU IH PRN (07:35)
[2021-05-03] MEDS: ZINC SULFATE 220 MG CAP PO SCH ×2 (10:01→21:53)
[2021-05-03] MEDS: busPIRone 10 MG TAB PO SCH ×2 (10:01→21:52)
[2021-05-03] MEDS: GABAPENTIN 300 MG CAP PO SCH ×3 (10:01→21:52)
[2021-05-03] MEDS: FAMOTIDINE 20 MG TAB PO SCH ×2 (10:01→21:53)
[2021-05-03] MEDS: ASCORBIC ACID 500 MG TAB PO SCH ×2 (10:01→21:53)
[2021-05-03] MEDS: APIXABAN 5 MG TAB PO SCH ×2 (10:01→21:52)
--- NOTE | 2021-05-03 13:11 | Progress Note ---
Assessment and Plan Assessment and plan: HPI: 51-year-old male with history of morbid obesity, hypertension, migraine, coronary osteoarthritis and GERD and headache was brought to the emergency room because of progressive shortness of breath. Patient has history of Covid and he was admitted last week to the hospital. He states he was sent home with oxygen however he is needed 4 L of oxygen and his shortness of breath has gotten worse when he walks his oxygen drops down to the mid 80s. Patient stated that he came into contact with an individual who had tested positive for COVID-19 viral infection, but he admits that he has been fully vaccinated against COVID-19 viral infection. In the emergency room patient CT scan of the chest showed scattered groundglass opacities at the bilateral lung suggesting atypical infectious process. hospital course: 04/18/21 Patient with recently diagnosed Covid-19 04/13/21 as outpatient. Presents with shortness of breath. Now on Remdesivir, Decadron, Rocephin, Zithromax. Patient also has sleep apnea uses CPAP at home. Pulm and ID following He is currently on BIPAP 04/19/21:clinically the patient appears to be in no distress despite being on 100% fio2 bipap mask. However, ABG data looks worse, Po2: 56.3. CXR demonstrates worsened pulmonary interstitial infiltrates. Discussed case with Dr. Lagunas. Low threshold for intubation should he worsen. Patient was advised on my encounter to maintain bipap mask and not remove it. Continue therapy with decadron, remdesivir. Dc abx due to low procal. Actemra ordered. Will follow ID recs. Consult PT to continue mobilizing patient. Encouraged patient to do so in presence of care staff 04/20/2021: Remains bipap dependent. No acute changes in respiratory status. Unfortunately he is low threshold for intubation. Will follow pulmonology/ID recommendations. 04/21/2021: Remains bipap dependent. Currenlty 100%. No changes overnight. Will follow pulm/ID recs. 04/22/2021. Patient currently requiring high flow nasal cannula with 40 L O2 FiO2 of 100%. Continue dexamethasone 6 mg IV for total of 10 days with remdesivir IV x5 days. Continue to follow inflammatory markers of ferritin, D-dimer, CRP and LDH. Patient is s/p Tocilizumab. Prone positioning as able. 04/23/2021: Patient currently requiring high flow nasal cannula with 40 L O2 FiO2 of 100% and BiPAP at night. Continue dexamethasone 6 mg IV for total of 10 days with remdesivir IV x5 days. Continue to follow inflammatory markers of ferritin, D-dimer, CRP and LDH. Patient is s/p Tocilizumab. Prone positioning as able. ID and pulmonary following. 04/24/2021: Patient currently requiring high flow nasal cannula with 40 L O2 FiO2 of 90% and BiPAP at night. Continue dexamethasone 6 mg IV for total of 10 days with remdesivir IV x5 days. Continue to follow inflammatory markers of ferritin, D-dimer, CRP and LDH. Patient is s/p Tocilizumab. Prone positioning as able. ID and pulmonary following. 04/25/2021. Patient currently requiring high flow nasal cannula with 40 L O2 FiO2 of 70% and BiPAP at night. Continue dexamethasone 6 mg IV for total of 10 days with remdesivir IV x5 days. Continue to follow inflammatory markers of ferritin, D-dimer, CRP and LDH. Patient is s/p Tocilizumab. Prone positioning as able. ID and pulmonary following. 04/26/2021. Patient currently requiring high flow nasal cannula with 40 L O2 FiO2 of 80% and BiPAP at night. O2 requirement had to be increased slightly since yesterday. Continue current management. Patient is s/p Tocilizumab. The dexamethasone and remdesivir have been completed. Consider continuing steroids given the ongoing hypoxia. Defer to pulmonary. Continue to monitor inflammatory markers of ferritin, D-dimer, CRP and LDH. 04/27/2021. Patient currently requiring high flow nasal cannula with 40 L O2 FiO2 of 80% and BiPAP at night. Continue current management. Patient is s/p Tocilizumab. The dexamethasone and remdesivir have been completed. Consider continuing steroids given the ongoing hypoxia. Defer to pulmonary. Continue to monitor inflammatory markers of ferritin, D-dimer, CRP and LDH. 04/28/2021. Patient still requiring high flow nasal cannula with 40 L O2 FiO2 of 80% and BiPAP at night. Patient is s/p Tocilizumab. The dexamethasone and remdesivir have been completed. Pulmonology recommends Eliquis for increased D- dimer. However, CTA negative from 04/16/2021. Continue to trend inflammatory markers. 04/29/2021: Currently on hi flow FIo 2 80%. Remains on high dose steroids. Added budesonide to inhaler regimen. Will continue to follow for improvement. 04/30/2021: Remains on hi flow FIo 2 80%. Continue current supportive management for covid pneumonia. Called physical therapist to work with patient to mobilize and educate on exercises patient can do while hospitalized. Additionally, I suspect patient has some underlying anxiety after discussion this AM. WIll add buspar to medications. Will d/w CM regarding placement options for patient. 05/01/2021: Remains on hi flow 40/100 today. Patient doing well, very small incremental improvements. Working with CM for LTAC placement 05/02/2021: Remains on hi flow. Awaiting LTAC placement. 05/03/2021: Remains on hi flow. Awaiting LTAC placement. Discussed plan with patient at bedside and answered questions to satisfaction. Assessment and Plan: #Acute hypoxic respiratory failure - on hi stephan nasal cannula - albuterol 2.5 IH q4hr prn /budesonide bid - pulmonology following #Severe COVID-19 pneumonia - RT PCR positive, patient reports having Pfizer vaccine x2 doses - follow inflammatory markers - decadron initiated initially, now on solumedrol 100 mg IV q8hr. - s/p tociluzimab, remdemsivir - apixaban #Anxiety - continue alprazolam - add buspar # Hypertension - hydralazine prn #GERD - Pepcid 20 mg IV bid # History of Arthritis -moprhine prn # Neuropathy - gabapentin 300 mg po tid #Morbid obesity - poor prognosticator in severe covid 19 presentations DVT Ppx: heparin 5000 units q8hr Dispo: IMCU The high probability of a clinically significant, sudden or life threatening deterioration of the [pulmonary, neuro] system(s) required my full and direct attention, intervention and personal management. The aggregate critical care time was [60] minutes. This time is in addition to time spent performing reported procedures but includes the following: [x] Data Review and interpretation [x] Patient assessment and monitoring of vital signs [x] Documentation [x] Medication orders and management History Interval history: No overnight events or acute complaints. States he is feeling well. Still on hi flow 40/100, utilizing bipap at night. Hospitalist Physical - Physical exam Narrative exam: GENERAL: Not in acute distress, sitting up in bed, morbidly obese . on hi flow nc with overlying nrb. HEENT: Normocephalic. Atraumatic. Patient has moist mucous membranes. NECK: Supple. Trachea midline. CHEST/LUNGS: Bilateral crackles. HEART/CARDIOVASCULAR: Regular in rate and rhythm. S1 and S2 positive. ABDOMEN: Abdomen is soft, nontender. Patient has normal bowel sounds. SKIN: There is no rash. Warm and dry. NEURO: No focal motor deficit. Follows command. MUSCULOSKELETAL: No joint effusion or tenderness. EXTRIMITY: No edema, no cyanosis or clubbing. PSYCH: Cooperative. - Constitutional Vitals: Temp Pulse Resp BP Pulse Ox 97.3 F L 85 34 H 124/74 98 05/03/21 12:00 05/03/21 12:31 05/03/21 12:31 05/03/21 12:31 05/03/21 12:31 General appearance: Present: no acute distress, obese Results - Labs CBC & Chem 7: 05/02/21 05:20 05/02/21 05:20 Labs: Laboratory Last Values WBC 21.3 K/mm3 (4.5-11.0) H 05/02/21 05:20 RBC 4.59 M/mm3 (3.65-5.03) 05/02/21 05:20 Hgb 13.3 gm/dl (11.8-15.2) 05/02/21 05:20 Hct 40.7 % (35.5-45.6) 05/02/21 05:20 MCV 89 fl (84-94) 05/02/21 05:20 MCH 29 pg (28-32) 05/02/21 05:20 MCHC 33 % (32-34) 05/02/21 05:20 RDW 13.2 % (13.2-15.2) 05/02/21 05:20 Plt Count 198 K/mm3 (140-440) 05/02/21 05:20 Lymph % (Auto) 9.5 % (13.4-35.0) L 04/28/21 12:51 [place] % (Auto) 6.7 % (0.0-7.3) 04/28/21 12:51 Eos % (Auto) 2.1 % (0.0-4.3) 04/28/21 12:51 Baso % (Auto) 0.5 % (0.0-1.8) 04/28/21 12:51 Lymph # (Auto) 1.4 K/mm3 (1.2-5.4) 04/28/21 12:51 [place] # (Auto) 1.0 K/mm3 (0.0-0.8) H 04/28/21 12:51 Eos # (Auto) 0.3 K/mm3 (0.0-0.4) 04/28/21 12:51 Baso # (Auto) 0.1 K/mm3 (0.0-0.1) 04/28/21 12:51 Add Manual Diff Complete 05/02/21 05:20 Total Counted 100 05/02/21 05:20 Seg Neutrophils % Casing Cleaner 05/02/21 05:20 Seg Neuts % (Manual) 94.0 % (40.0-70.0) H 05/02/21 05:20 Band Neutrophils % 0 % 05/02/21 05:20 Lymphocytes % (Manual) 2.0 % (13.4-35.0) L 05/02/21 05:20 Reactive Lymphs % (Man) 0 % 05/02/21 05:20 Monocytes % (Manual) 4.0 % (0.0-7.3) 05/02/21 05:20 Eosinophils % (Manual) 0 % (0.0-4.3) 05/02/21 05:20 Basophils % (Manual) 0 % (0.0-1.8) 05/02/21 05:20 Metamyelocytes % 0 % 05/02/21 05:20 Myelocytes % 0 % 05/02/21 05:20 Promyelocytes % 0 % 05/02/21 05:20 Blast Cells % 0 % 05/02/21 05:20 Nucleated RBC % Not Reportable 05/02/21 05:20 Seg Neutrophils # 12.1 K/mm3 (1.8-7.7) H 04/28/21 12:51 Seg Neutrophils # Man 20.0 K/mm3 (1.8-7.7) H 05/02/21 05:20 Band Neutrophils # 0.0 K/mm3 05/02/21 05:20 Lymphocytes # (Manual) 0.4 K/mm3 (1.2-5.4) L 05/02/21 05:20 Abs React Lymphs (Man) 0.0 K/mm3 05/02/21 05:20 Monocytes # (Manual) 0.9 K/mm3 (0.0-0.8) H 05/02/21 05:20 Eosinophils # (Manual) 0.0 K/mm3 (0.0-0.4) 05/02/21 05:20 Basophils # (Manual) 0.0 K/mm3 (0.0-0.1) 05/02/21 05:20 Metamyelocytes # 0.0 K/mm3 05/02/21 05:20 Myelocytes # 0.0 K/mm3 05/02/21 05:20 Promyelocytes # 0.0 K/mm3 05/02/21 05:20 Blast Cells # 0.0 K/mm3 05/02/21 05:20 WBC Morphology Not Reportable 05/02/21 05:20 Hypersegmented Neuts Not Reportable 05/02/21 05:20 Hyposegmented Neuts Not Reportable 05/02/21 05:20 Hypogranular Neuts Not Reportable 05/02/21 05:20 Smudge Cells Not Reportable 05/02/21 05:20 Toxic Granulation Not Reportable 05/02/21 05:20 Toxic Vacuolation Not Reportable 05/02/21 05:20 Dohle Bodies Not Reportable 05/02/21 05:20 Pelger-Huet Anomaly Not Reportable 05/02/21 05:20 Dang Rods Not Reportable 05/02/21 05:20 Platelet Estimate Consistent w auto 05/02/21 05:20 Clumped Platelets Not Reportable 05/02/21 05:20 Plt Clumps, EDTA Not Reportable 05/02/21 05:20 Large Platelets Not Reportable 05/02/21 05:20 Giant Platelets Not Reportable 05/02/21 05:20 Platelet Satelliting Not Reportable 05/02/21 05:20 Plt Morphology Comment Not Reportable 05/02/21 05:20 RBC Morphology Normal 05/02/21 05:20 Dimorphic RBCs Not Reportable 05/02/21 05:20 Polychromasia Not Reportable 05/02/21 05:20 Hypochromasia Not Reportable 05/02/21 05:20 Poikilocytosis Not Reportable 05/02/21 05:20 Anisocytosis Not Reportable 05/02/21 05:20 Microcytosis Not Reportable 05/02/21 05:20 Macrocytosis Not Reportable 05/02/21 05:20 Spherocytes Not Reportable 05/02/21 05:20 Pappenheimer Bodies Not Reportable 05/02/21 05:20 Sickle Cells Not Reportable 05/02/21 05:20 Target Cells Not Reportable 05/02/21 05:20 Tear Drop Cells Not Reportable 05/02/21 05:20 Ovalocytes Not Reportable 05/02/21 05:20 Helmet Cells Not Reportable 05/02/21 05:20 Vargas-Wilder Bodies Not Reportable 05/02/21 05:20 Watkins Rings Not Reportable 05/02/21 05:20 Lonnie Cells Not Reportable 05/02/21 05:20 Bite Cells Not Reportable 05/02/21 05:20 Crenated Cell Not Reportable 05/02/21 05:20 Elliptocytes Not Reportable 05/02/21 05:20 Acanthocytes (Spur) Not Reportable 05/02/21 05:20 Rouleaux Not Reportable 05/02/21 05:20 Hemoglobin C Crystals Not Reportable 05/02/21 05:20 Schistocytes Not Reportable 05/02/21 05:20 Malaria parasites Not Reportable 05/02/21 05:20 Yury Bodies Not Reportable 05/02/21 05:20 Hem Pathologist Commnt No 05/02/21 05:20 PT 13.8 Sec. (12.2-14.9) 04/28/21 12:51 INR 0.96 (0.87-1.13) 04/28/21 12:51 APTT 27.0 Sec. (24.2-36.6) 04/28/21 12:51 D-Dimer 590.58 ng/mlDDU (0-234) H 05/02/21 05:20 ABG pH 7.404 (7.320-7.450) 04/30/21 11:40 POC ABG pCO2 40.8 mmHg (32.0-48.0) 04/30/21 11:40 ABG pCO2 36.2 mm Hg 04/18/21 Unknown POC ABG pO2 71.9 mmHg (83-108) L 04/30/21 11:40 ABG pO2 134.6 mm Hg (80.0-90.0) H 04/18/21 Unknown POC ABG HCO3 24.9 04/30/21 11:40 ABG HCO3 21.0 mmol/L (20.0-26.0) 04/18/21 Unknown ABG O2 Saturation 94.4 (0-100) 04/30/21 11:40 ABG O2 Content 22.0 (0.0-44) 04/18/21 Unknown POC ABG Base Excess 0.2 04/30/21 11:40 ABG Base Excess -3.3 mmol/L (-2.0-3.0) L 04/18/21 Unknown ABG Hemoglobin 14.6 (12.0-17.5) 04/30/21 11:40 ABG Oxyhemoglobin 93.6 (94-98) L 04/30/21 11:40 ABG Carboxyhemoglobin 0.7 % (0.0-5.0) 04/18/21 Unknown ABG Methemoglobin 0.3 (0.0-1.5) 04/30/21 11:40 ABG Sodium 132.7 mmol/L (136.0-145.0) L 04/30/21 11:40 ABG Potassium 4.4 mmol/L (3.40-4.50) 04/30/21 11:40 ABG Chloride 97.0 mmol/L (98-107) L 04/30/21 11:40 ABG Glucose 191 mg/dL (65-95) H 04/30/21 11:40 Oxyhemoglobin 97.2 % (95.0-99.0) 04/18/21 Unknown Carboxyhemoglobin 0.5 (0.5-1.5) 04/30/21 11:40 FiO2 100 % 04/18/21 Unknown FiO2 % 100 04/30/21 11:40 Sodium 136 mmol/L (137-145) L 05/02/21 05:20 Potassium 5.1 mmol/L (3.6-5.0) H 05/02/21 05:20 Chloride 97.1 mmol/L (98-107) L 05/02/21 05:20 Carbon Dioxide 24 mmol/L (22-30) 05/02/21 05:20 Anion Gap 20 mmol/L 05/02/21 05:20 BUN 19 mg/dL (9-20) 05/02/21 05:20 Creatinine 0.6 mg/dL (0.8-1.3) L 05/02/21 05:20 Estimated GFR > 60 ml/min 05/02/21 05:20 BUN/Creatinine Ratio 32 % 05/02/21 05:20 Glucose 204 mg/dL (75-100) H 05/02/21 05:20 POC Glucose 274 mg/dL (70-105) H 05/03/21 11:31 Lactic Acid 1.10 mmol/L (0.7-2.0) 04/16/21 21:18 Calcium 9.0 mg/dL (8.4-10.2) 05/02/21 05:20 Phosphorus 4.40 mg/dL (2.5-4.5) 05/01/21 18:45 Magnesium 2.10 mg/dL (1.7-2.3) 05/01/21 18:45 Ferritin 692.6 ng/mL (30.0-300.0) H 05/02/21 05:20 Total Bilirubin 0.70 mg/dL (0.1-1.2) 05/02/21 05:20 AST 25 units/L (5-40) 05/02/21 05:20 ALT 53 units/L (7-56) 05/02/21 05:20 Alkaline Phosphatase 109 units/L (35-129) 05/02/21 05:20 Lactate Dehydrogenase 775 units/L (91-180) H 05/02/21 05:20 C-Reactive Protein 0.20 mg/dL (0.00-1.30) 05/02/21 05:20 NT-Pro-B Natriuret Pep 79.47 pg/mL (0-900) 04/17/21 16:40 Total Protein 5.8 g/dL (6.3-8.2) L 05/02/21 05:20 Albumin 3.5 g/dL (3.9-5) L 05/02/21 05:20 Albumin/Globulin Ratio 1.5 % 05/02/21 05:20 Procalcitonin 0.15 ng/mL (<0.15) 04/17/21 16:40 Arterial Blood Glucose 191 mg/dL (65-95) H 04/30/21 11:40 Arterial Blood Ionized Calcium 4.8 mg/dL (4.6-5.3) 04/30/21 11:40 Coronavirus (PCR) Positive (Negative) A 04/20/21 Unknown Martin/IV: Voiding Method Urinal Active Medications - Current Medications Current Medications: Generic Name Dose Route Start Last Admin Trade Name Freq PRN Reason Stop Dose Admin Acetaminophen 650 mg 04/17/21 01:45 04/28/21 13:17 Acetaminophen 325 Mg Tab PO 650 mg Q4H PRN Administration Pain MILD(1-3)/Fever >100.5/ALEXANDER Albuterol 2.5 mg 04/17/21 01:45 05/03/21 07:35 Albuterol 2.5 Mg/3 Ml Nebu IH 2.5 mg Q4HRT PRN Administration Shortness Of Breath Alprazolam 0.25 mg 04/17/21 22:00 05/02/21 21:24 Alprazolam 0.25 Mg Tab PO 0.25 mg QHS DEIRDRE Administration Apixaban 5 mg 04/28/21 22:00 05/03/21 10:01 Apixaban 5 Mg Tab PO 5 mg Q12HR DEIRDRE Administration Protocol Ascorbic Acid 1,000 mg 04/17/21 02:00 05/03/21 10:01 Ascorbic Acid 500 Mg Tab PO 1,000 mg Q12HR DEIRDRE Administration Benzonatate 100 mg 04/17/21 06:00 05/03/21 06:16 Benzonatate 100 Mg Cap PO 100 mg Q8HR DEIRDRE Administration Budesonide 0.5 mg 04/29/21 20:00 05/03/21 07:35 Budesonide 0.5 Mg/2 Ml Nebu IH 0.5 mg Q12HRT DEIRDRE Administration Buspirone HCl 10 mg 04/30/21 12:00 05/03/21 10:01 Buspirone 10 Mg Tab PO 10 mg BID DEIRDRE Administration Cyclobenzaprine HCl 10 mg 04/17/21 01:49 04/30/21 21:17 Cyclobenzaprine 10 Mg Tab PO 10 mg TID PRN Administration Spasms Famotidine 20 mg 04/25/21 10:00 05/03/21 10:01 Famotidine 20 Mg Tab PO 20 mg BID DEIRDRE Administration Gabapentin 300 mg 04/17/21 08:00 05/03/21 10:01 Gabapentin 300 Mg Cap PO 300 mg TID DEIRDRE Administration Hydralazine HCl 10 mg 04/17/21 02:00 04/22/21 19:16 Hydralazine 20 Mg/1 Ml Inj IV 10 mg Q6H PRN Administration Blood Pressure Hydromorphone HCl 0.5 mg 04/17/21 01:45 04/29/21 04:48 Hydromorphone 1 Mg/1 Ml Inj IV 0.5 mg Q3H PRN Administration Pain , Severe (7-10) Lorazepam 0.5 mg 04/21/21 08:44 04/29/21 02:39 Lorazepam 2 Mg/Ml Vial IV 0.5 mg Q4H PRN Administration Anxiety Methylprednisolone Sodium Succinate 60 mg 05/01/21 12:00 05/03/21 06:16 Methylprednisolone Sod Succinate 125 Mg/2 Ml Inj IV 60 mg Q6HR DEIRDRE Administration Morphine Sulfate 2 mg 04/17/21 01:45 04/28/21 18:07 Morphine 2 Mg/1 Ml Inj IV 2 mg Q4H PRN Administration Pain, Moderate (4-6) Ondansetron HCl 4 mg 04/17/21 01:45 04/18/21 07:48 Ondansetron 4 Mg/2 Ml Inj IV 4 mg Q8H PRN Administration Nausea And Vomiting Sodium Chloride 10 ml 04/17/21 10:00 05/03/21 10:01 Sodium Chloride 0.9% 10 Ml Flush Syringe IV 10 ml BID DEIRDRE Administration Sodium Chloride 10 ml 04/17/21 01:45 Sodium Chloride 0.9% 10 Ml Flush Syringe IV PRN PRN LINE FLUSH Zinc Sulfate 220 mg 04/17/21 22:00 05/03/21 10:01 Zinc Sulfate 220 Mg Cap PO 220 mg BID DEIRDRE Administration Nutrition/Malnutrition Assess - Dietary Evaluation Nutrition/Malnutrition Findings: Nutrition Notes Start: 04/24/21 17:14 Freq: Status: Active Protocol: Document 04/24/21 17:14 TEDDY (Rec: 04/24/21 17:41 TEDDY [id number]) Nutrition Notes Need for Assessment generated from: LOS Initial or Follow up Assessment Current Diagnosis Coronary Artery Disease, Hypertension,Respiratory Failure Other Pertinent Diagnosis COVID-19, Pneumonia, AHRF, ARDS, ANKUSH. Current Diet Cardiac Diet (since B 04/17). Labs/Tests 04/22: Cl 108.6, CO2 21, BUN 28, Crea 0.6, Glu 115. Pertinent Medications 04/24: Vit C, ZnSO4, others nutritionally unremarkable. Height 5 ft 8 in Weight 161 kg [place] Body Weight (kg) 70.00 BMI 53.9 Intake Prior to Admission Good Weight change and time frame None reported at admission. Weight Status Morbidly Obese Subjective/Other Information RD consult for LOS assessment. Pt's PO intake of meals is Good (75-100%), according to ADL notes. Percent of energy/protein needs met: Prescribed Cardiac Diet provides for energy/protein needs (2,230 Kcal/85 g) during LOS. Burn Absent Trauma Absent GI Symptoms None Food Allergy No Skin Integrity/Comment Clear, warm, dry. Current % PO Good (75-100%) Minimum of two criteria No Is patient on ventilator? No Is Patient Ambulatory and/or Out of Bed Yes REE-([place]-St. Jeor-ambulatory/OOB) [ 3164.850 [id number]] Kcal/Kg value to use for calculation 9 Approximate Energy Requirements Using 1449 kcal/Kg Calculation Used for Recommendations Kcal/kg Additional Notes Protein: 0.8-1 g/Kg; 93-116 g/ day. Fluids: 1 ml/Kcal, or as per MD. Nutrition Intervention Change Diet Order: Continue Cardiac Diet. Revisit per MD consult or patient Sign Off request: Additional Comments Continue monitoring food tolerance, %PO intake of meals , and BM.
--- NOTE | 2021-05-03 15:41 | Progress Note ---
Assessment and Plan Acute Hypoxemic Respiratory Failure ARDS ANKUSH COVID-19 infection Bilateral pneumonia Leukopenia Morbid obesity Thrombocytopenia Elevated serum transaminases - reduced FiO2 to 90% - continue BIPAP qhs (prn daytime use) - continue to watch closely in step-down unit - continue care as below otherwise; - continue to wean supplemental oxygen for target O2 sat's > 90% acutely - aspiration precautions - continue bronchodilators with pulmonary hygiene per RT - avoid nephrotoxins, renally dose all medications - avoid benzodiazepine's, reduce the possibility of delirium - s/p AB's per ID rec's - continue accuchecks with glycemic control per SSI (While critically ill target blood glucose of 140-180 mg/dL; avoid hypoglycemia) - prn analgesia per pain score - Maintenance of sleep-wake cycle, avoid delirium - G.I. & VTE prophylaxis - PT/OT/ROM exercises - continue mobility protocols for pressure ulcer prophylaxis - Monitor hemodynamics closely - continue other care per attending / other consultants - discharge planning ongoing concurrently COVID SPECIFIC INTERVENTIONS - Remdesivir as per ID/Pulmonary developed protocols (received) - continue systemic steroids for severe COVID-19 infection empirically (Decadron) - follow repeat COVID tests results - zinc and vitamin C supplementation - Monitor inflammatory markers per facility protocol - ferritin, Ddimer, CRP - therapeutic anticoagulation per system Protocol based on d-dimer and clinical considerations (VTE prophylaxis) - Continue contact and airborne isolation .... Re-evaluate in am & prn CONDITION: CRITICAL PROGNOSIS: GUARDED CODE STATUS: FULL CODE The high probability of a clinically significant, sudden or life-threatening deterioration of the [respiratory, ID & cardiovascular] system(s) required my full and direct attention, intervention and personal management. The aggregate critical care time was [35] minutes without overlap. Time includes spent on; [x] Data Review and interpretation [x] Patient assessment and monitoring of vital signs [x] Documentation [x] Medication orders and management Subjective Date of service: 05/03/21 Principal diagnosis: AHRF; ARDS; ANKUSH; COVID-19 infxn; Pneumonia; Morbid Obesity Interval history: Patient is seen today for: Acute Hypoxemic Respiratory Failure; ARDS; ANKUSH; COVID-19 infxn; Pneumonia Seen and examined at bedside; 24hour events reviewed; nursing and respiratory care staff consulted; no adverse overnight events reported to me; resting in bed; remains on HFNC with FiO2 at 100% but some room to wean today Objective Vital Signs - 12hr 05/03/21 05/03/21 05/03/21 03:42 04:00 04:30 Temperature 97.8 F Pulse Rate 58 L 48 L 57 L Pulse Rate [ 84 From Monitor] Pulse Rate [ Posterior] Respiratory 33 H 13 15 Rate Respiratory Rate [Posterior ] Blood Pressure 145/89 156/69 156/69 O2 Sat by Pulse 98 97 99 Oximetry 05/03/21 05/03/21 05/03/21 05:00 05:30 06:00 Temperature Pulse Rate 56 L 56 L Pulse Rate [ From Monitor] Pulse Rate [ Posterior] Respiratory 19 20 Rate Respiratory Rate [Posterior ] Blood Pressure 130/62 130/62 139/62 O2 Sat by Pulse 95 98 97 Oximetry 05/03/21 05/03/21 05/03/21 06:30 07:00 07:30 Temperature Pulse Rate 53 L 62 57 L Pulse Rate [ From Monitor] Pulse Rate [ Posterior] Respiratory 17 24 18 Rate Respiratory Rate [Posterior ] Blood Pressure 139/62 127/71 127/71 O2 Sat by Pulse 96 99 97 Oximetry 05/03/21 05/03/21 05/03/21 07:35 08:00 08:30 Temperature 97.8 F Pulse Rate 70 118 H Pulse Rate [ 80 From Monitor] Pulse Rate [ 70 Posterior] Respiratory 32 H 40 H Rate Respiratory 24 Rate [Posterior ] Blood Pressure 127/71 117/79 117/79 O2 Sat by Pulse 99 92 96 Oximetry 05/03/21 05/03/21 05/03/21 09:00 09:30 10:01 Temperature Pulse Rate 74 Pulse Rate [ From Monitor] Pulse Rate [ Posterior] Respiratory Rate Respiratory Rate [Posterior ] Blood Pressure 117/79 105/57 121/79 O2 Sat by Pulse 95 100 96 Oximetry 05/03/21 05/03/21 05/03/21 10:30 11:00 11:30 Temperature Pulse Rate 75 81 90 Pulse Rate [ From Monitor] Pulse Rate [ Posterior] Respiratory 15 13 22 Rate Respiratory Rate [Posterior ] Blood Pressure 121/79 132/82 132/82 O2 Sat by Pulse 99 96 97 Oximetry 05/03/21 05/03/21 05/03/21 12:00 12:31 13:00 Temperature 97.3 F L Pulse Rate 70 85 88 Pulse Rate [ 85 From Monitor] Pulse Rate [ Posterior] Respiratory 26 H 34 H 22 Rate Respiratory Rate [Posterior ] Blood Pressure 132/82 124/74 138/84 O2 Sat by Pulse 98 98 96 Oximetry 05/03/21 05/03/21 05/03/21 13:31 14:00 14:31 Temperature Pulse Rate 64 68 59 L Pulse Rate [ From Monitor] Pulse Rate [ Posterior] Respiratory 24 21 25 H Rate Respiratory Rate [Posterior ] Blood Pressure 138/84 145/78 145/78 O2 Sat by Pulse 96 94 99 Oximetry 05/03/21 05/03/21 15:01 15:31 Temperature Pulse Rate 65 59 L Pulse Rate [ From Monitor] Pulse Rate [ Posterior] Respiratory 18 21 Rate Respiratory Rate [Posterior ] Blood Pressure 132/78 132/78 O2 Sat by Pulse 96 98 Oximetry Constitutional: alert, appears uncomfortable, other (middle aged morbidly obese male with mildly increased respiratory effort at rest) Eyes: non-icteric ENT: oropharynx moist Neck: supple, no lymphadenopathy, no JVD, other (large circumference) Effort: mildly labored Ascultation: Bilateral: diminished breath sounds, rhonchi Percussion: Bilateral: not dull Cardiovascular: irregular rhythm, other (Patient tachycardic rate varies from 120 to 140.) Gastrointestinal: normoactive bowel sounds, soft, non-tender, non-distended (protuberant) Integumentary: normal Extremities: no cyanosis, pink and warm, pulses normal, no ischemia or petechiae, edema (trace) Neurologic: normal mental status, non-focal exam, pupils equal and round, CN II- XII normal Psychiatric: mood appropriate, affect normal CBC and BMP: 05/04/21 06:24 05/04/21 06:24 ABG, PT/INR, D-dimer: ABG ABG pH 7.404 (7.320-7.450) 04/30/21 11:40 POC ABG pCO2 40.8 mmHg (32.0-48.0) 04/30/21 11:40 ABG pCO2 36.2 mm Hg 04/18/21 Unknown POC ABG pO2 71.9 mmHg (83-108) L 04/30/21 11:40 ABG pO2 134.6 mm Hg (80.0-90.0) H 04/18/21 Unknown POC ABG HCO3 24.9 04/30/21 11:40 ABG O2 Saturation 94.4 (0-100) 04/30/21 11:40 PT/INR, D-dimer PT 13.8 Sec. (12.2-14.9) 04/28/21 12:51 INR 0.96 (0.87-1.13) 04/28/21 12:51 D-Dimer 590.58 ng/mlDDU (0-234) H 05/02/21 05:20 Abnormal lab findings: Abnormal Labs 04/16/21 04/16/21 04/17/21 21:18 21:18 16:40 WBC 3.5 L RDW Plt Count 85 L Lymph % (Auto) [place] % (Auto) Lymph # (Auto) 0.7 L [place] # (Auto) Seg Neutrophils % 74.2 H Seg Neuts % (Manual) Lymphocytes % (Manual) Seg Neutrophils # Seg Neutrophils # Man Lymphocytes # (Manual) Monocytes # (Manual) D-Dimer ABG pH POC ABG pO2 ABG pO2 ABG HCO3 ABG O2 Saturation ABG Base Excess ABG Hemoglobin ABG Oxyhemoglobin ABG Sodium ABG Chloride ABG Glucose Oxyhemoglobin Carboxyhemoglobin Sodium 132 L Potassium Chloride 93.8 L Carbon Dioxide BUN Creatinine 0.7 L Glucose 125 H POC Glucose Calcium 8.2 L Ferritin 1918.0 H AST 83 H ALT 63 H Lactate Dehydrogenase C-Reactive Protein Total Protein Albumin 3.7 L Arterial Blood Glucose Arterial Blood Ionized Calcium Coronavirus (PCR) 04/17/21 04/17/21 04/17/21 16:40 16:40 16:40 WBC RDW Plt Count Lymph % (Auto) [place] % (Auto) Lymph # (Auto) [place] # (Auto) Seg Neutrophils % Seg Neuts % (Manual) Lymphocytes % (Manual) Seg Neutrophils # Seg Neutrophils # Man Lymphocytes # (Manual) Monocytes # (Manual) D-Dimer 306.45 H ABG pH POC ABG pO2 ABG pO2 ABG HCO3 ABG O2 Saturation ABG Base Excess ABG Hemoglobin ABG Oxyhemoglobin ABG Sodium ABG Chloride ABG Glucose Oxyhemoglobin Carboxyhemoglobin Sodium 135 L Potassium Chloride 96.2 L Carbon Dioxide BUN Creatinine Glucose 155 H POC Glucose Calcium Ferritin AST 72 H ALT 68 H Lactate Dehydrogenase 505 H C-Reactive Protein 16.30 H Total Protein Albumin 3.5 L Arterial Blood Glucose Arterial Blood Ionized Calcium Coronavirus (PCR) 04/17/21 04/17/21 04/18/21 18:45 Unknown 03:53 WBC RDW 13.1 L Plt Count 115 L Lymph % (Auto) 13.0 L [place] % (Auto) 8.7 H Lymph # (Auto) 1.0 L [place] # (Auto) Seg Neutrophils % 78.2 H Seg Neuts % (Manual) Lymphocytes % (Manual) Seg Neutrophils # Seg Neutrophils # Man Lymphocytes # (Manual) Monocytes # (Manual) D-Dimer ABG pH POC ABG pO2 ABG pO2 56.8 L ABG HCO3 27.4 H ABG O2 Saturation 90.8 L ABG Base Excess 3.1 H ABG Hemoglobin 11.3 L 13.7 L ABG Oxyhemoglobin ABG Sodium ABG Chloride ABG Glucose Oxyhemoglobin 89.4 L Carboxyhemoglobin Sodium Potassium Chloride Carbon Dioxide BUN Creatinine Glucose POC Glucose Calcium Ferritin AST ALT Lactate Dehydrogenase C-Reactive Protein Total Protein Albumin Arterial Blood Glucose Arterial Blood Ionized Calcium Coronavirus (PCR) 04/18/21 04/18/21 04/18/21 03:53 08:02 Unknown WBC RDW Plt Count Lymph % (Auto) [place] % (Auto) Lymph # (Auto) [place] # (Auto) Seg Neutrophils % Seg Neuts % (Manual) Lymphocytes % (Manual) Seg Neutrophils # Seg Neutrophils # Man Lymphocytes # (Manual) Monocytes # (Manual) D-Dimer ABG pH POC ABG pO2 ABG pO2 64.3 L 134.6 H ABG HCO3 26.9 H ABG O2 Saturation 93.6 L ABG Base Excess -3.3 L ABG Hemoglobin 11.9 L ABG Oxyhemoglobin ABG Sodium ABG Chloride ABG Glucose Oxyhemoglobin 92.3 L Carboxyhemoglobin Sodium 135 L Potassium Chloride 95.9 L Carbon Dioxide BUN Creatinine 0.7 L Glucose 149 H POC Glucose Calcium Ferritin AST 62 H ALT 59 H Lactate Dehydrogenase C-Reactive Protein Total Protein Albumin 3.3 L Arterial Blood Glucose Arterial Blood Ionized Calcium Coronavirus (PCR) 04/19/21 04/19/21 04/19/21 01:37 07:28 08:44 WBC RDW Plt Count Lymph % (Auto) [place] % (Auto) Lymph # (Auto) [place] # (Auto) Seg Neutrophils % Seg Neuts % (Manual) Lymphocytes % (Manual) Seg Neutrophils # Seg Neutrophils # Man Lymphocytes # (Manual) Monocytes # (Manual) D-Dimer ABG pH POC ABG pO2 56.3 L ABG pO2 ABG HCO3 ABG O2 Saturation ABG Base Excess ABG Hemoglobin ABG Oxyhemoglobin 88.3 L ABG Sodium 132.8 L ABG Chloride 96.0 L ABG Glucose 145 H Oxyhemoglobin Carboxyhemoglobin 0.4 L Sodium Potassium Chloride 97.4 L Carbon Dioxide BUN Creatinine 0.7 L Glucose 130 H POC Glucose 135 H Calcium Ferritin AST 53 H ALT Lactate Dehydrogenase C-Reactive Protein Total Protein Albumin 3.6 L Arterial Blood Glucose 145 H Arterial Blood Ionized Calcium 4.5 L Coronavirus (PCR) 04/19/21 04/19/21 04/19/21 08:44 11:30 16:53 WBC RDW 12.8 L Plt Count Lymph % (Auto) [place] % (Auto) Lymph # (Auto) [place] # (Auto) Seg Neutrophils % Seg Neuts % (Manual) Lymphocytes % (Manual) Seg Neutrophils # Seg Neutrophils # Man Lymphocytes # (Manual) Monocytes # (Manual) D-Dimer ABG pH POC ABG pO2 ABG pO2 ABG HCO3 ABG O2 Saturation ABG Base Excess ABG Hemoglobin ABG Oxyhemoglobin ABG Sodium ABG Chloride ABG Glucose Oxyhemoglobin Carboxyhemoglobin Sodium Potassium Chloride Carbon Dioxide BUN Creatinine Glucose POC Glucose 129 H 146 H Calcium Ferritin AST ALT Lactate Dehydrogenase C-Reactive Protein Total Protein Albumin Arterial Blood Glucose Arterial Blood Ionized Calcium Coronavirus (PCR) 04/19/21 04/19/21 04/20/21 17:21 21:07 07:18 WBC RDW Plt Count Lymph % (Auto) [place] % (Auto) Lymph # (Auto) [place] # (Auto) Seg Neutrophils % Seg Neuts % (Manual) Lymphocytes % (Manual) Seg Neutrophils # Seg Neutrophils # Man Lymphocytes # (Manual) Monocytes # (Manual) D-Dimer ABG pH 7.480 H POC ABG pO2 108.6 H ABG pO2 ABG HCO3 ABG O2 Saturation ABG Base Excess ABG Hemoglobin ABG Oxyhemoglobin ABG Sodium 134.1 L ABG Chloride 97.0 L ABG Glucose 167 H Oxyhemoglobin Carboxyhemoglobin 0.4 L Sodium Potassium Chloride Carbon Dioxide BUN Creatinine Glucose POC Glucose 152 H 128 H Calcium Ferritin AST ALT Lactate Dehydrogenase C-Reactive Protein Total Protein Albumin Arterial Blood Glucose 167 H Arterial Blood Ionized Calcium Coronavirus (PCR) 04/20/21 04/20/21 04/20/21 11:08 11:08 11:08 WBC RDW Plt Count Lymph % (Auto) [place] % (Auto) Lymph # (Auto) [place] # (Auto) Seg Neutrophils % Seg Neuts % (Manual) Lymphocytes % (Manual) Seg Neutrophils # Seg Neutrophils # Man Lymphocytes # (Manual) Monocytes # (Manual) D-Dimer 1082.55 H ABG pH POC ABG pO2 ABG pO2 ABG HCO3 ABG O2 Saturation ABG Base Excess ABG Hemoglobin ABG Oxyhemoglobin ABG Sodium ABG Chloride ABG Glucose Oxyhemoglobin Carboxyhemoglobin Sodium Potassium Chloride Carbon Dioxide BUN 26 H Creatinine Glucose 121 H POC Glucose Calcium Ferritin 1389.0 H AST 46 H ALT Lactate Dehydrogenase 647 H C-Reactive Protein 5.50 H Total Protein Albumin 3.5 L Arterial Blood Glucose Arterial Blood Ionized Calcium Coronavirus (PCR) 04/20/21 04/20/21 04/20/21 11:08 16:04 21:10 WBC RDW 12.9 L Plt Count Lymph % (Auto) [place] % (Auto) 14.0 H Lymph # (Auto) [place] # (Auto) 0.9 H Seg Neutrophils % Seg Neuts % (Manual) Lymphocytes % (Manual) Seg Neutrophils # Seg Neutrophils # Man Lymphocytes # (Manual) Monocytes # (Manual) D-Dimer ABG pH POC ABG pO2 ABG pO2 ABG HCO3 ABG O2 Saturation ABG Base Excess ABG Hemoglobin ABG Oxyhemoglobin ABG Sodium ABG Chloride ABG Glucose Oxyhemoglobin Carboxyhemoglobin Sodium Potassium Chloride Carbon Dioxide BUN Creatinine Glucose POC Glucose 159 H 149 H Calcium Ferritin AST ALT Lactate Dehydrogenase C-Reactive Protein Total Protein Albumin Arterial Blood Glucose Arterial Blood Ionized Calcium Coronavirus (PCR) 04/20/21 04/21/21 04/21/21 Unknown 11:34 11:34 WBC RDW 13.1 L Plt Count Lymph % (Auto) [place] % (Auto) 13.0 H Lymph # (Auto) [place] # (Auto) 1.2 H Seg Neutrophils % 70.4 H Seg Neuts % (Manual) Lymphocytes % (Manual) Seg Neutrophils # Seg Neutrophils # Man Lymphocytes # (Manual) Monocytes # (Manual) D-Dimer ABG pH POC ABG pO2 ABG pO2 ABG HCO3 ABG O2 Saturation ABG Base Excess ABG Hemoglobin ABG Oxyhemoglobin ABG Sodium ABG Chloride ABG Glucose Oxyhemoglobin Carboxyhemoglobin Sodium Potassium Chloride Carbon Dioxide BUN 27 H Creatinine Glucose 107 H POC Glucose Calcium Ferritin AST 46 H ALT Lactate Dehydrogenase C-Reactive Protein Total Protein Albumin 3.4 L Arterial Blood Glucose Arterial Blood Ionized Calcium Coronavirus (PCR) Positive A 04/21/21 04/21/21 04/22/21 17:00 22:05 04:49 WBC RDW Plt Count Lymph % (Auto) 12.2 L [place] % (Auto) 10.7 H Lymph # (Auto) [place] # (Auto) 1.1 H Seg Neutrophils % 76.6 H Seg Neuts % (Manual) Lymphocytes % (Manual) Seg Neutrophils # Seg Neutrophils # Man Lymphocytes # (Manual) Monocytes # (Manual) D-Dimer ABG pH POC ABG pO2 ABG pO2 ABG HCO3 ABG O2 Saturation ABG Base Excess ABG Hemoglobin ABG Oxyhemoglobin ABG Sodium ABG Chloride ABG Glucose Oxyhemoglobin Carboxyhemoglobin Sodium Potassium Chloride Carbon Dioxide BUN Creatinine Glucose POC Glucose 138 H 133 H Calcium Ferritin AST ALT Lactate Dehydrogenase C-Reactive Protein Total Protein Albumin Arterial Blood Glucose Arterial Blood Ionized Calcium Coronavirus (PCR) 04/22/21 04/22/21 04/22/21 04:49 04:49 04:49 WBC RDW Plt Count Lymph % (Auto) [place] % (Auto) Lymph # (Auto) [place] # (Auto) Seg Neutrophils % Seg Neuts % (Manual) Lymphocytes % (Manual) Seg Neutrophils # Seg Neutrophils # Man Lymphocytes # (Manual) Monocytes # (Manual) D-Dimer 1880.44 H ABG pH POC ABG pO2 ABG pO2 ABG HCO3 ABG O2 Saturation ABG Base Excess ABG Hemoglobin ABG Oxyhemoglobin ABG Sodium ABG Chloride ABG Glucose Oxyhemoglobin Carboxyhemoglobin Sodium Potassium Chloride 108.6 H Carbon Dioxide 21 L D BUN 28 H Creatinine 0.6 L Glucose 115 H POC Glucose Calcium Ferritin 1185.0 H AST 50 H ALT Lactate Dehydrogenase 759 H C-Reactive Protein 1.60 H Total Protein Albumin 3.1 L Arterial Blood Glucose Arterial Blood Ionized Calcium Coronavirus (PCR) 04/22/21 04/22/21 04/23/21 16:17 22:08 21:14 WBC RDW Plt Count Lymph % (Auto) [place] % (Auto) Lymph # (Auto) [place] # (Auto) Seg Neutrophils % Seg Neuts % (Manual) Lymphocytes % (Manual) Seg Neutrophils # Seg Neutrophils # Man Lymphocytes # (Manual) Monocytes # (Manual) D-Dimer ABG pH POC ABG pO2 ABG pO2 ABG HCO3 ABG O2 Saturation ABG Base Excess ABG Hemoglobin ABG Oxyhemoglobin ABG Sodium ABG Chloride ABG Glucose Oxyhemoglobin Carboxyhemoglobin Sodium Potassium Chloride Carbon Dioxide BUN Creatinine Glucose POC Glucose 158 H 134 H 159 H Calcium Ferritin AST ALT Lactate Dehydrogenase C-Reactive Protein Total Protein Albumin Arterial Blood Glucose Arterial Blood Ionized Calcium Coronavirus (PCR) 04/24/21 04/25/21 04/25/21 21:20 11:33 16:23 WBC RDW Plt Count Lymph % (Auto) [place] % (Auto) Lymph # (Auto) [place] # (Auto) Seg Neutrophils % Seg Neuts % (Manual) Lymphocytes % (Manual) Seg Neutrophils # Seg Neutrophils # Man Lymphocytes # (Manual) Monocytes # (Manual) D-Dimer ABG pH POC ABG pO2 ABG pO2 ABG HCO3 ABG O2 Saturation ABG Base Excess ABG Hemoglobin ABG Oxyhemoglobin ABG Sodium ABG Chloride ABG Glucose Oxyhemoglobin Carboxyhemoglobin Sodium Potassium Chloride Carbon Dioxide BUN Creatinine Glucose POC Glucose 161 H 126 H 176 H Calcium Ferritin AST ALT Lactate Dehydrogenase C-Reactive Protein Total Protein Albumin Arterial Blood Glucose Arterial Blood Ionized Calcium Coronavirus (PCR) 04/25/21 04/26/21 04/26/21 21:06 16:26 21:26 WBC RDW Plt Count Lymph % (Auto) [place] % (Auto) Lymph # (Auto) [place] # (Auto) Seg Neutrophils % Seg Neuts % (Manual) Lymphocytes % (Manual) Seg Neutrophils # Seg Neutrophils # Man Lymphocytes # (Manual) Monocytes # (Manual) D-Dimer ABG pH POC ABG pO2 ABG pO2 ABG HCO3 ABG O2 Saturation ABG Base Excess ABG Hemoglobin ABG Oxyhemoglobin ABG Sodium ABG Chloride ABG Glucose Oxyhemoglobin Carboxyhemoglobin Sodium Potassium Chloride Carbon Dioxide BUN Creatinine Glucose POC Glucose 214 H 119 H 114 H Calcium Ferritin AST ALT Lactate Dehydrogenase C-Reactive Protein Total Protein Albumin Arterial Blood Glucose Arterial Blood Ionized Calcium Coronavirus (PCR) 04/27/21 04/27/21 04/28/21 07:32 22:02 12:51 WBC 14.9 H RDW 12.8 L Plt Count Lymph % (Auto) 9.5 L [place] % (Auto) Lymph # (Auto) [place] # (Auto) 1.0 H Seg Neutrophils % 81.2 H Seg Neuts % (Manual) Lymphocytes % (Manual) Seg Neutrophils # 12.1 H Seg Neutrophils # Man Lymphocytes # (Manual) Monocytes # (Manual) D-Dimer ABG pH POC ABG pO2 ABG pO2 ABG HCO3 ABG O2 Saturation ABG Base Excess ABG Hemoglobin ABG Oxyhemoglobin ABG Sodium ABG Chloride ABG Glucose Oxyhemoglobin Carboxyhemoglobin Sodium Potassium Chloride Carbon Dioxide BUN Creatinine Glucose POC Glucose 109 H 127 H Calcium Ferritin AST ALT Lactate Dehydrogenase C-Reactive Protein Total Protein Albumin Arterial Blood Glucose Arterial Blood Ionized Calcium Coronavirus (PCR) 04/28/21 04/28/21 04/28/21 12:51 12:51 12:51 WBC RDW Plt Count Lymph % (Auto) [place] % (Auto) Lymph # (Auto) [place] # (Auto) Seg Neutrophils % Seg Neuts % (Manual) Lymphocytes % (Manual) Seg Neutrophils # Seg Neutrophils # Man Lymphocytes # (Manual) Monocytes # (Manual) D-Dimer 861.39 H ABG pH POC ABG pO2 ABG pO2 ABG HCO3 ABG O2 Saturation ABG Base Excess ABG Hemoglobin ABG Oxyhemoglobin ABG Sodium ABG Chloride ABG Glucose Oxyhemoglobin Carboxyhemoglobin Sodium 134 L Potassium Chloride 95.2 L Carbon Dioxide BUN Creatinine 0.6 L Glucose 121 H POC Glucose Calcium Ferritin AST ALT Lactate Dehydrogenase 769 H C-Reactive Protein Total Protein Albumin Arterial Blood Glucose Arterial Blood Ionized Calcium Coronavirus (PCR) 04/28/21 04/28/21 04/28/21 12:51 16:59 21:17 WBC RDW Plt Count Lymph % (Auto) [place] % (Auto) Lymph # (Auto) [place] # (Auto) Seg Neutrophils % Seg Neuts % (Manual) Lymphocytes % (Manual) Seg Neutrophils # Seg Neutrophils # Man Lymphocytes # (Manual) Monocytes # (Manual) D-Dimer ABG pH POC ABG pO2 ABG pO2 ABG HCO3 ABG O2 Saturation ABG Base Excess ABG Hemoglobin ABG Oxyhemoglobin ABG Sodium ABG Chloride ABG Glucose Oxyhemoglobin Carboxyhemoglobin Sodium Potassium Chloride Carbon Dioxide BUN Creatinine Glucose POC Glucose 124 H 146 H Calcium Ferritin 1009.0 H AST ALT Lactate Dehydrogenase C-Reactive Protein Total Protein Albumin Arterial Blood Glucose Arterial Blood Ionized Calcium Coronavirus (PCR) 04/29/21 04/30/21 04/30/21 21:28 04:59 04:59 WBC 30.4 H RDW Plt Count Lymph % (Auto) [place] % (Auto) Lymph # (Auto) [place] # (Auto) Seg Neutrophils % Seg Neuts % (Manual) 88.0 H Lymphocytes % (Manual) 0 L Seg Neutrophils # Seg Neutrophils # Man 26.8 H Lymphocytes # (Manual) 0.0 L Monocytes # (Manual) 2.1 H D-Dimer 592.16 H ABG pH POC ABG pO2 ABG pO2 ABG HCO3 ABG O2 Saturation ABG Base Excess ABG Hemoglobin ABG Oxyhemoglobin ABG Sodium ABG Chloride ABG Glucose Oxyhemoglobin Carboxyhemoglobin Sodium Potassium Chloride Carbon Dioxide BUN Creatinine Glucose POC Glucose 190 H Calcium Ferritin AST ALT Lactate Dehydrogenase C-Reactive Protein Total Protein Albumin Arterial Blood Glucose Arterial Blood Ionized Calcium Coronavirus (PCR) 04/30/21 04/30/21 04/30/21 04:59 04:59 07:32 WBC RDW Plt Count Lymph % (Auto) [place] % (Auto) Lymph # (Auto) [place] # (Auto) Seg Neutrophils % Seg Neuts % (Manual) Lymphocytes % (Manual) Seg Neutrophils # Seg Neutrophils # Man Lymphocytes # (Manual) Monocytes # (Manual) D-Dimer ABG pH POC ABG pO2 ABG pO2 ABG HCO3 ABG O2 Saturation ABG Base Excess ABG Hemoglobin ABG Oxyhemoglobin ABG Sodium ABG Chloride ABG Glucose Oxyhemoglobin Carboxyhemoglobin Sodium Potassium Chloride 97.4 L Carbon Dioxide BUN Creatinine 0.6 L Glucose 180 H POC Glucose 161 H Calcium Ferritin 789.6 H AST ALT 68 H Lactate Dehydrogenase 947 H C-Reactive Protein Total Protein Albumin 3.8 L Arterial Blood Glucose Arterial Blood Ionized Calcium Coronavirus (PCR) 04/30/21 04/30/21 04/30/21 11:02 11:40 16:24 WBC RDW Plt Count Lymph % (Auto) [place] % (Auto) Lymph # (Auto) [place] # (Auto) Seg Neutrophils % Seg Neuts % (Manual) Lymphocytes % (Manual) Seg Neutrophils # Seg Neutrophils # Man Lymphocytes # (Manual) Monocytes # (Manual) D-Dimer ABG pH POC ABG pO2 71.9 L ABG pO2 ABG HCO3 ABG O2 Saturation ABG Base Excess ABG Hemoglobin ABG Oxyhemoglobin 93.6 L ABG Sodium 132.7 L ABG Chloride 97.0 L ABG Glucose 191 H Oxyhemoglobin Carboxyhemoglobin Sodium Potassium Chloride Carbon Dioxide BUN Creatinine Glucose POC Glucose 203 H 205 H Calcium Ferritin AST ALT Lactate Dehydrogenase C-Reactive Protein Total Protein Albumin Arterial Blood Glucose 191 H Arterial Blood Ionized Calcium Coronavirus (PCR) 04/30/21 05/01/21 05/01/21 21:16 05:22 07:33 WBC RDW Plt Count Lymph % (Auto) [place] % (Auto) Lymph # (Auto) [place] # (Auto) Seg Neutrophils % Seg Neuts % (Manual) Lymphocytes % (Manual) Seg Neutrophils # Seg Neutrophils # Man Lymphocytes # (Manual) Monocytes # (Manual) D-Dimer ABG pH POC ABG pO2 ABG pO2 ABG HCO3 ABG O2 Saturation ABG Base Excess ABG Hemoglobin ABG Oxyhemoglobin ABG Sodium ABG Chloride ABG Glucose Oxyhemoglobin Carboxyhemoglobin Sodium Potassium Chloride Carbon Dioxide BUN Creatinine 0.6 L Glucose POC Glucose 184 H 199 H Calcium Ferritin AST ALT Lactate Dehydrogenase C-Reactive Protein Total Protein Albumin Arterial Blood Glucose Arterial Blood Ionized Calcium Coronavirus (PCR) 05/01/21 05/01/21 05/02/21 11:36 22:14 05:20 WBC 21.3 H RDW Plt Count Lymph % (Auto) [place] % (Auto) Lymph # (Auto) [place] # (Auto) Seg Neutrophils % Seg Neuts % (Manual) 94.0 H Lymphocytes % (Manual) 2.0 L Seg Neutrophils # Seg Neutrophils # Man 20.0 H Lymphocytes # (Manual) 0.4 L Monocytes # (Manual) 0.9 H D-Dimer ABG pH POC ABG pO2 ABG pO2 ABG HCO3 ABG O2 Saturation ABG Base Excess ABG Hemoglobin ABG Oxyhemoglobin ABG Sodium ABG Chloride ABG Glucose Oxyhemoglobin Carboxyhemoglobin Sodium Potassium Chloride Carbon Dioxide BUN Creatinine Glucose POC Glucose 196 H 236 H Calcium Ferritin AST ALT Lactate Dehydrogenase C-Reactive Protein Total Protein Albumin Arterial Blood Glucose Arterial Blood Ionized Calcium Coronavirus (PCR) 05/02/21 05/02/21 05/02/21 05:20 05:20 05:20 WBC RDW Plt Count Lymph % (Auto) [place] % (Auto) Lymph # (Auto) [place] # (Auto) Seg Neutrophils % Seg Neuts % (Manual) Lymphocytes % (Manual) Seg Neutrophils # Seg Neutrophils # Man Lymphocytes # (Manual) Monocytes # (Manual) D-Dimer 590.58 H ABG pH POC ABG pO2 ABG pO2 ABG HCO3 ABG O2 Saturation ABG Base Excess ABG Hemoglobin ABG Oxyhemoglobin ABG Sodium ABG Chloride ABG Glucose Oxyhemoglobin Carboxyhemoglobin Sodium 136 L Potassium 5.1 H Chloride 97.1 L Carbon Dioxide BUN Creatinine 0.6 L Glucose 204 H POC Glucose Calcium Ferritin 692.6 H AST ALT Lactate Dehydrogenase 775 H C-Reactive Protein Total Protein 5.8 L Albumin 3.5 L Arterial Blood Glucose Arterial Blood Ionized Calcium Coronavirus (PCR) 05/03/21 11:31 WBC RDW Plt Count Lymph % (Auto) [place] % (Auto) Lymph # (Auto) [place] # (Auto) Seg Neutrophils % Seg Neuts % (Manual) Lymphocytes % (Manual) Seg Neutrophils # Seg Neutrophils # Man Lymphocytes # (Manual) Monocytes # (Manual) D-Dimer ABG pH POC ABG pO2 ABG pO2 ABG HCO3 ABG O2 Saturation ABG Base Excess ABG Hemoglobin ABG Oxyhemoglobin ABG Sodium ABG Chloride ABG Glucose Oxyhemoglobin Carboxyhemoglobin Sodium Potassium Chloride Carbon Dioxide BUN Creatinine Glucose POC Glucose 274 H Calcium Ferritin AST ALT Lactate Dehydrogenase C-Reactive Protein Total Protein Albumin Arterial Blood Glucose Arterial Blood Ionized Calcium Coronavirus (PCR) Allied health notes reviewed: nursing
[2021-05-03] MEDS: ALPRAZolam 0.25 MG TAB PO SCH (23:24)
[2021-05-04] MEDS: methylPREDNISolone Sod Succinate 125 MG/2 ML INJ IV SCH ×3 (05:01→17:12)
[2021-05-04] MEDS: BENZONATATE 100 MG CAP PO SCH ×3 (05:02→21:23)
[2021-05-04 06:54] LABS: Hematocrit 41.4 % (35.5-45.6); Hemoglobin 13.7 gm/dl (11.8-15.2); Mean Corpuscular HGB Conc 33 % (32-34); Mean Corpuscular Volume 88 fl (84-94); Platelet Count 178 K/mm3 (140-440); Red Blood Count 4.69 M/mm3 (3.65-5.03); Red Cell Distribution Width 13.1 % (13.2-15.2)
--- NOTE | 2021-05-04 08:57 | Progress Note ---
Assessment and Plan Assessment and plan: HPI: 51-year-old male with history of morbid obesity, hypertension, migraine, coronary osteoarthritis and GERD and headache was brought to the emergency room because of progressive shortness of breath. Patient has history of Covid and he was admitted last week to the hospital. He states he was sent home with oxygen however he is needed 4 L of oxygen and his shortness of breath has gotten worse when he walks his oxygen drops down to the mid 80s. Patient stated that he came into contact with an individual who had tested positive for COVID-19 viral infection, but he admits that he has been fully vaccinated against COVID-19 viral infection. In the emergency room patient CT scan of the chest showed scattered groundglass opacities at the bilateral lung suggesting atypical infectious process. hospital course: 04/18/21 Patient with recently diagnosed Covid-19 04/13/21 as outpatient. Presents with shortness of breath. Now on Remdesivir, Decadron, Rocephin, Zithromax. Patient also has sleep apnea uses CPAP at home. Pulm and ID following He is currently on BIPAP 04/19/21:clinically the patient appears to be in no distress despite being on 100% fio2 bipap mask. However, ABG data looks worse, Po2: 56.3. CXR demonstrates worsened pulmonary interstitial infiltrates. Discussed case with Dr. Lagunas. Low threshold for intubation should he worsen. Patient was advised on my encounter to maintain bipap mask and not remove it. Continue therapy with decadron, remdesivir. Dc abx due to low procal. Actemra ordered. Will follow ID recs. Consult PT to continue mobilizing patient. Encouraged patient to do so in presence of care staff 04/20/2021: Remains bipap dependent. No acute changes in respiratory status. Unfortunately he is low threshold for intubation. Will follow pulmonology/ID recommendations. 04/21/2021: Remains bipap dependent. Currenlty 100%. No changes overnight. Will follow pulm/ID recs. 04/22/2021. Patient currently requiring high flow nasal cannula with 40 L O2 FiO2 of 100%. Continue dexamethasone 6 mg IV for total of 10 days with remdesivir IV x5 days. Continue to follow inflammatory markers of ferritin, D-dimer, CRP and LDH. Patient is s/p Tocilizumab. Prone positioning as able. 04/23/2021: Patient currently requiring high flow nasal cannula with 40 L O2 FiO2 of 100% and BiPAP at night. Continue dexamethasone 6 mg IV for total of 10 days with remdesivir IV x5 days. Continue to follow inflammatory markers of ferritin, D-dimer, CRP and LDH. Patient is s/p Tocilizumab. Prone positioning as able. ID and pulmonary following. 04/24/2021: Patient currently requiring high flow nasal cannula with 40 L O2 FiO2 of 90% and BiPAP at night. Continue dexamethasone 6 mg IV for total of 10 days with remdesivir IV x5 days. Continue to follow inflammatory markers of ferritin, D-dimer, CRP and LDH. Patient is s/p Tocilizumab. Prone positioning as able. ID and pulmonary following. 04/25/2021. Patient currently requiring high flow nasal cannula with 40 L O2 FiO2 of 70% and BiPAP at night. Continue dexamethasone 6 mg IV for total of 10 days with remdesivir IV x5 days. Continue to follow inflammatory markers of ferritin, D-dimer, CRP and LDH. Patient is s/p Tocilizumab. Prone positioning as able. ID and pulmonary following. 04/26/2021. Patient currently requiring high flow nasal cannula with 40 L O2 FiO2 of 80% and BiPAP at night. O2 requirement had to be increased slightly since yesterday. Continue current management. Patient is s/p Tocilizumab. The dexamethasone and remdesivir have been completed. Consider continuing steroids given the ongoing hypoxia. Defer to pulmonary. Continue to monitor inflammatory markers of ferritin, D-dimer, CRP and LDH. 04/27/2021. Patient currently requiring high flow nasal cannula with 40 L O2 FiO2 of 80% and BiPAP at night. Continue current management. Patient is s/p Tocilizumab. The dexamethasone and remdesivir have been completed. Consider continuing steroids given the ongoing hypoxia. Defer to pulmonary. Continue to monitor inflammatory markers of ferritin, D-dimer, CRP and LDH. 04/28/2021. Patient still requiring high flow nasal cannula with 40 L O2 FiO2 of 80% and BiPAP at night. Patient is s/p Tocilizumab. The dexamethasone and remdesivir have been completed. Pulmonology recommends Eliquis for increased D- dimer. However, CTA negative from 04/16/2021. Continue to trend inflammatory markers. 04/29/2021: Currently on hi flow FIo 2 80%. Remains on high dose steroids. Added budesonide to inhaler regimen. Will continue to follow for improvement. 04/30/2021: Remains on hi flow FIo 2 80%. Continue current supportive management for covid pneumonia. Called physical therapist to work with patient to mobilize and educate on exercises patient can do while hospitalized. Additionally, I suspect patient has some underlying anxiety after discussion this AM. WIll add buspar to medications. Will d/w CM regarding placement options for patient. 05/01/2021: Remains on hi flow 40/100 today. Patient doing well, very small incremental improvements. Working with CM for LTAC placement 05/02/2021: Remains on hi flow. Awaiting LTAC placement. 05/03/2021: Remains on hi flow. Awaiting LTAC placement. Discussed plan with patient at bedside and answered questions to satisfaction. 05/04/2021: Remains on hi flow in the day, bipap at night. Continue agressive weaning. Awaiting ltac placement. Assessment and Plan: #Acute hypoxic respiratory failure - on hi stephan nasal cannula , bipap nightly and prn in daytime. - albuterol 2.5 IH q4hr prn /budesonide bid - continue solumedrol. - pulmonology following #Severe COVID-19 pneumonia - RT PCR positive, patient reports having Pfizer vaccine x2 doses - follow inflammatory markers - decadron initiated initially, now on solumedrol 60 q6 - s/p tociluzimab, remdemsivir - apixaban #Anxiety - continue alprazolam - buspar 10 mg po bid -continue xanax prn. # Hypertension - hydralazine prn #GERD - Pepcid 20 mg IV bid # History of Arthritis -moprhine prn # Neuropathy - gabapentin 300 mg po tid #Morbid obesity - poor prognosticator in severe covid 19 presentations DVT Ppx: heparin 5000 units q8hr Dispo: IMCU The high probability of a clinically significant, sudden or life threatening deterioration of the [pulmonary, neuro] system(s) required my full and direct attention, intervention and personal management. The aggregate critical care time was [60] minutes. This time is in addition to time spent performing reported procedures but includes the following: [x] Data Review and interpretation [x] Patient assessment and monitoring of vital signs [x] Documentation [x] Medication orders and management History Interval history: No overnight events or acute complaints. States he is feeling well. Still on hi flow 40/100, utilizing bipap at night. Hospitalist Physical - Physical exam Narrative exam: GENERAL: Not in acute distress, sitting up in bed, morbidly obese . on hi flow nc with overlying nrb. HEENT: Normocephalic. Atraumatic. Patient has moist mucous membranes. NECK: Supple. Trachea midline. CHEST/LUNGS: Bilateral crackles. HEART/CARDIOVASCULAR: Regular in rate and rhythm. S1 and S2 positive. ABDOMEN: Abdomen is soft, nontender. Patient has normal bowel sounds. SKIN: There is no rash. Warm and dry. NEURO: No focal motor deficit. Follows command. MUSCULOSKELETAL: No joint effusion or tenderness. EXTRIMITY: No edema, no cyanosis or clubbing. PSYCH: Cooperative. - Constitutional Vitals: Temp Pulse Resp BP Pulse Ox 98.4 F 57 L 33 H 158/76 100 05/04/21 04:00 05/04/21 05:00 05/04/21 04:31 05/04/21 06:01 05/04/21 06:01 General appearance: Present: no acute distress, obese Results - Labs CBC & Chem 7: 05/04/21 06:24 05/04/21 06:24 Labs: Laboratory Last Values WBC 20.0 K/mm3 (4.5-11.0) H 05/04/21 06:24 RBC 4.69 M/mm3 (3.65-5.03) 05/04/21 06:24 Hgb 13.7 gm/dl (11.8-15.2) 05/04/21 06:24 Hct 41.4 % (35.5-45.6) 05/04/21 06:24 MCV 88 fl (84-94) 05/04/21 06:24 MCH 29 pg (28-32) 05/04/21 06:24 MCHC 33 % (32-34) 05/04/21 06:24 RDW 13.1 % (13.2-15.2) L 05/04/21 06:24 Plt Count 178 K/mm3 (140-440) 05/04/21 06:24 Lymph % (Auto) 9.5 % (13.4-35.0) L 04/28/21 12:51 [place] % (Auto) 6.7 % (0.0-7.3) 04/28/21 12:51 Eos % (Auto) 2.1 % (0.0-4.3) 04/28/21 12:51 Baso % (Auto) 0.5 % (0.0-1.8) 04/28/21 12:51 Lymph # (Auto) 1.4 K/mm3 (1.2-5.4) 04/28/21 12:51 [place] # (Auto) 1.0 K/mm3 (0.0-0.8) H 04/28/21 12:51 Eos # (Auto) 0.3 K/mm3 (0.0-0.4) 04/28/21 12:51 Baso # (Auto) 0.1 K/mm3 (0.0-0.1) 04/28/21 12:51 Add Manual Diff Complete 05/02/21 05:20 Total Counted 100 05/02/21 05:20 Seg Neutrophils % [place] Aide 05/02/21 05:20 Seg Neuts % (Manual) 94.0 % (40.0-70.0) H 05/02/21 05:20 Band Neutrophils % 0 % 05/02/21 05:20 Lymphocytes % (Manual) 2.0 % (13.4-35.0) L 05/02/21 05:20 Reactive Lymphs % (Man) 0 % 05/02/21 05:20 Monocytes % (Manual) 4.0 % (0.0-7.3) 05/02/21 05:20 Eosinophils % (Manual) 0 % (0.0-4.3) 05/02/21 05:20 Basophils % (Manual) 0 % (0.0-1.8) 05/02/21 05:20 Metamyelocytes % 0 % 05/02/21 05:20 Myelocytes % 0 % 05/02/21 05:20 Promyelocytes % 0 % 05/02/21 05:20 Blast Cells % 0 % 05/02/21 05:20 Nucleated RBC % Not Reportable 05/02/21 05:20 Seg Neutrophils # 12.1 K/mm3 (1.8-7.7) H 04/28/21 12:51 Seg Neutrophils # Man 20.0 K/mm3 (1.8-7.7) H 05/02/21 05:20 Band Neutrophils # 0.0 K/mm3 05/02/21 05:20 Lymphocytes # (Manual) 0.4 K/mm3 (1.2-5.4) L 05/02/21 05:20 Abs React Lymphs (Man) 0.0 K/mm3 05/02/21 05:20 Monocytes # (Manual) 0.9 K/mm3 (0.0-0.8) H 05/02/21 05:20 Eosinophils # (Manual) 0.0 K/mm3 (0.0-0.4) 05/02/21 05:20 Basophils # (Manual) 0.0 K/mm3 (0.0-0.1) 05/02/21 05:20 Metamyelocytes # 0.0 K/mm3 05/02/21 05:20 Myelocytes # 0.0 K/mm3 05/02/21 05:20 Promyelocytes # 0.0 K/mm3 05/02/21 05:20 Blast Cells # 0.0 K/mm3 05/02/21 05:20 WBC Morphology Not Reportable 05/02/21 05:20 Hypersegmented Neuts Not Reportable 05/02/21 05:20 Hyposegmented Neuts Not Reportable 05/02/21 05:20 Hypogranular Neuts Not Reportable 05/02/21 05:20 Smudge Cells Not Reportable 05/02/21 05:20 Toxic Granulation Not Reportable 05/02/21 05:20 Toxic Vacuolation Not Reportable 05/02/21 05:20 Dohle Bodies Not Reportable 05/02/21 05:20 [place]-Huet Anomaly Not Reportable 05/02/21 05:20 Dang Rods Not Reportable 05/02/21 05:20 Platelet Estimate Consistent w auto 05/02/21 05:20 Clumped Platelets Not Reportable 05/02/21 05:20 Plt Clumps, EDTA Not Reportable 05/02/21 05:20 Large Platelets Not Reportable 05/02/21 05:20 Giant Platelets Not Reportable 05/02/21 05:20 Platelet Satelliting Not Reportable 05/02/21 05:20 Plt Morphology Comment Not Reportable 05/02/21 05:20 RBC Morphology Normal 05/02/21 05:20 Dimorphic RBCs Not Reportable 05/02/21 05:20 Polychromasia Not Reportable 05/02/21 05:20 Hypochromasia Not Reportable 05/02/21 05:20 Poikilocytosis Not Reportable 05/02/21 05:20 Anisocytosis Not Reportable 05/02/21 05:20 Microcytosis Not Reportable 05/02/21 05:20 Macrocytosis Not Reportable 05/02/21 05:20 Spherocytes Not Reportable 05/02/21 05:20 Pappenheimer Bodies Not Reportable 05/02/21 05:20 Sickle Cells Not Reportable 05/02/21 05:20 Target Cells Not Reportable 05/02/21 05:20 Tear Drop Cells Not Reportable 05/02/21 05:20 Ovalocytes Not Reportable 05/02/21 05:20 Helmet Cells Not Reportable 05/02/21 05:20 [place] Bodies Not Reportable 05/02/21 05:20 [place] Rings Not Reportable 05/02/21 05:20 [place] Cells Not Reportable 05/02/21 05:20 Bite Cells Not Reportable 05/02/21 05:20 Crenated Cell Not Reportable 05/02/21 05:20 Elliptocytes Not Reportable 05/02/21 05:20 Acanthocytes (Spur) Not Reportable 05/02/21 05:20 Rouleaux Not Reportable 05/02/21 05:20 Hemoglobin C Crystals Not Reportable 05/02/21 05:20 Schistocytes Not Reportable 05/02/21 05:20 Malaria parasites Not Reportable 05/02/21 05:20 [place] Bodies Not Reportable 05/02/21 05:20 Hem Pathologist Commnt No 05/02/21 05:20 PT 13.8 Sec. (12.2-14.9) 04/28/21 12:51 INR 0.96 (0.87-1.13) 04/28/21 12:51 APTT 27.0 Sec. (24.2-36.6) 04/28/21 12:51 D-Dimer 590.58 ng/mlDDU (0-234) H 05/02/21 05:20 ABG pH 7.404 (7.320-7.450) 04/30/21 11:40 POC ABG pCO2 40.8 mmHg (32.0-48.0) 04/30/21 11:40 ABG pCO2 36.2 mm Hg 04/18/21 Unknown POC ABG pO2 71.9 mmHg (83-108) L 04/30/21 11:40 ABG pO2 134.6 mm Hg (80.0-90.0) H 04/18/21 Unknown POC ABG HCO3 24.9 04/30/21 11:40 ABG HCO3 21.0 mmol/L (20.0-26.0) 04/18/21 Unknown ABG O2 Saturation 94.4 (0-100) 04/30/21 11:40 ABG O2 Content 22.0 (0.0-44) 04/18/21 Unknown POC ABG Base Excess 0.2 04/30/21 11:40 ABG Base Excess -3.3 mmol/L (-2.0-3.0) L 04/18/21 Unknown ABG Hemoglobin 14.6 (12.0-17.5) 04/30/21 11:40 ABG Oxyhemoglobin 93.6 (94-98) L 04/30/21 11:40 ABG Carboxyhemoglobin 0.7 % (0.0-5.0) 04/18/21 Unknown ABG Methemoglobin 0.3 (0.0-1.5) 04/30/21 11:40 ABG Sodium 132.7 mmol/L (136.0-145.0) L 04/30/21 11:40 ABG Potassium 4.4 mmol/L (3.40-4.50) 04/30/21 11:40 ABG Chloride 97.0 mmol/L (98-107) L 04/30/21 11:40 ABG Glucose 191 mg/dL (65-95) H 04/30/21 11:40 Oxyhemoglobin 97.2 % (95.0-99.0) 04/18/21 Unknown Carboxyhemoglobin 0.5 (0.5-1.5) 04/30/21 11:40 FiO2 100 % 04/18/21 Unknown FiO2 % 100 04/30/21 11:40 Sodium 136 mmol/L (137-145) L 05/02/21 05:20 Potassium 5.1 mmol/L (3.6-5.0) H 05/02/21 05:20 Chloride 97.1 mmol/L (98-107) L 05/02/21 05:20 Carbon Dioxide 24 mmol/L (22-30) 05/02/21 05:20 Anion Gap 20 mmol/L 05/02/21 05:20 BUN 19 mg/dL (9-20) 05/02/21 05:20 Creatinine 0.6 mg/dL (0.8-1.3) L 05/04/21 06:24 Estimated GFR > 60 ml/min 05/04/21 06:24 BUN/Creatinine Ratio 32 % 05/02/21 05:20 Glucose 204 mg/dL (75-100) H 05/02/21 05:20 POC Glucose 167 mg/dL (70-105) H 05/04/21 08:04 Lactic Acid 1.10 mmol/L (0.7-2.0) 04/16/21 21:18 Calcium 9.0 mg/dL (8.4-10.2) 05/02/21 05:20 Phosphorus 4.40 mg/dL (2.5-4.5) 05/01/21 18:45 Magnesium 2.10 mg/dL (1.7-2.3) 05/01/21 18:45 Ferritin 692.6 ng/mL (30.0-300.0) H 05/02/21 05:20 Total Bilirubin 0.70 mg/dL (0.1-1.2) 05/02/21 05:20 AST 25 units/L (5-40) 05/02/21 05:20 ALT 53 units/L (7-56) 05/02/21 05:20 Alkaline Phosphatase 109 units/L (35-129) 05/02/21 05:20 Lactate Dehydrogenase 775 units/L (91-180) H 05/02/21 05:20 C-Reactive Protein 0.20 mg/dL (0.00-1.30) 05/02/21 05:20 NT-Pro-B Natriuret Pep 79.47 pg/mL (0-900) 04/17/21 16:40 Total Protein 5.8 g/dL (6.3-8.2) L 05/02/21 05:20 Albumin 3.5 g/dL (3.9-5) L 05/02/21 05:20 Albumin/Globulin Ratio 1.5 % 05/02/21 05:20 Procalcitonin 0.15 ng/mL (<0.15) 04/17/21 16:40 Arterial Blood Glucose 191 mg/dL (65-95) H 04/30/21 11:40 Arterial Blood Ionized Calcium 4.8 mg/dL (4.6-5.3) 04/30/21 11:40 Coronavirus (PCR) Positive (Negative) A 04/20/21 Unknown Martin/IV: Voiding Method Urinal Active Medications - Current Medications Current Medications: Generic Name Dose Route Start Last Admin Trade Name Freq PRN Reason Stop Dose Admin Acetaminophen 650 mg 04/17/21 01:45 04/28/21 13:17 Acetaminophen 325 Mg Tab PO 650 mg Q4H PRN Administration Pain MILD(1-3)/Fever >100.5/ALEXANDER Albuterol 2.5 mg 04/17/21 01:45 05/03/21 07:35 Albuterol 2.5 Mg/3 Ml Nebu IH 2.5 mg Q4HRT PRN Administration Shortness Of Breath Alprazolam 0.25 mg 04/17/21 22:00 05/03/21 23:24 Alprazolam 0.25 Mg Tab PO 0.25 mg QHS DEIRDRE Administration Apixaban 5 mg 04/28/21 22:00 05/03/21 21:52 Apixaban 5 Mg Tab PO 5 mg Q12HR DEIRDRE Administration Protocol Ascorbic Acid 1,000 mg 04/17/21 02:00 05/03/21 21:53 Ascorbic Acid 500 Mg Tab PO 1,000 mg Q12HR DEIRDRE Administration Benzonatate 100 mg 04/17/21 06:00 05/04/21 05:02 Benzonatate 100 Mg Cap PO 100 mg Q8HR DEIRDRE Administration Budesonide 0.5 mg 04/29/21 20:00 05/03/21 07:35 Budesonide 0.5 Mg/2 Ml Nebu IH 0.5 mg Q12HRT DEIRDRE Administration Buspirone HCl 10 mg 04/30/21 12:00 05/03/21 21:52 Buspirone 10 Mg Tab PO 10 mg BID DEIRDRE Administration Cyclobenzaprine HCl 10 mg 04/17/21 01:49 04/30/21 21:17 Cyclobenzaprine 10 Mg Tab PO 10 mg TID PRN Administration Spasms Famotidine 20 mg 04/25/21 10:00 05/03/21 21:53 Famotidine 20 Mg Tab PO 20 mg BID DEIRDRE Administration Gabapentin 300 mg 04/17/21 08:00 05/03/21 21:52 Gabapentin 300 Mg Cap PO 300 mg TID DEIRDRE Administration Hydralazine HCl 10 mg 04/17/21 02:00 04/22/21 19:16 Hydralazine 20 Mg/1 Ml Inj IV 10 mg Q6H PRN Administration Blood Pressure Hydromorphone HCl 0.5 mg 04/17/21 01:45 04/29/21 04:48 Hydromorphone 1 Mg/1 Ml Inj IV 0.5 mg Q3H PRN Administration Pain , Severe (7-10) Lorazepam 0.5 mg 04/21/21 08:44 04/29/21 02:39 Lorazepam 2 Mg/Ml Vial IV 0.5 mg Q4H PRN Administration Anxiety Methylprednisolone Sodium Succinate 60 mg 05/01/21 12:00 05/04/21 05:01 Methylprednisolone Sod Succinate 125 Mg/2 Ml Inj IV 60 mg Q6HR DEIRDRE Administration Morphine Sulfate 2 mg 04/17/21 01:45 04/28/21 18:07 Morphine 2 Mg/1 Ml Inj IV 2 mg Q4H PRN Administration Pain, Moderate (4-6) Ondansetron HCl 4 mg 04/17/21 01:45 04/18/21 07:48 Ondansetron 4 Mg/2 Ml Inj IV 4 mg Q8H PRN Administration Nausea And Vomiting Sodium Chloride 10 ml 04/17/21 10:00 05/03/21 21:53 Sodium Chloride 0.9% 10 Ml Flush Syringe IV 10 ml BID DEIRDRE Administration Sodium Chloride 10 ml 04/17/21 01:45 Sodium Chloride 0.9% 10 Ml Flush Syringe IV PRN PRN LINE FLUSH Zinc Sulfate 220 mg 04/17/21 22:00 05/03/21 21:53 Zinc Sulfate 220 Mg Cap PO 220 mg BID DEIRDRE Administration Nutrition/Malnutrition Assess - Dietary Evaluation Nutrition/Malnutrition Findings: Nutrition Notes Start: 04/24/21 17:14 Freq: Status: Active Protocol: Document 04/24/21 17:14 TEDDY (Rec: 04/24/21 17:41 TEDDY [id number]) Nutrition Notes Need for Assessment generated from: LOS Initial or Follow up Assessment Current Diagnosis Coronary Artery Disease, Hypertension,Respiratory Failure Other Pertinent Diagnosis COVID-19, Pneumonia, AHRF, ARDS, ANKUSH. Current Diet Cardiac Diet (since B 04/17). Labs/Tests 04/22: Cl 108.6, CO2 21, BUN 28, Crea 0.6, Glu 115. Pertinent Medications 04/24: Vit C, ZnSO4, others nutritionally unremarkable. Height 5 ft 8 in Weight 161 kg [place] Body Weight (kg) 70.00 BMI 53.9 Intake Prior to Admission Good Weight change and time frame None reported at admission. Weight Status Morbidly Obese Subjective/Other Information RD consult for LOS assessment. Pt's PO intake of meals is Good (75-100%), according to ADL notes. Percent of energy/protein needs met: Prescribed Cardiac Diet provides for energy/protein needs (2,230 Kcal/85 g) during LOS. Burn Absent Trauma Absent GI Symptoms None Food Allergy No Skin Integrity/Comment Clear, warm, dry. Current % PO Good (75-100%) Minimum of two criteria No Is patient on ventilator? No Is Patient Ambulatory and/or Out of Bed Yes REE-([place]-St. Jeor-ambulatory/OOB) [ 3164.850 [id number]] Kcal/Kg value to use for calculation 9 Approximate Energy Requirements Using 1449 kcal/Kg Calculation Used for Recommendations Kcal/kg Additional Notes Protein: 0.8-1 g/Kg; 93-116 g/ day. Fluids: 1 ml/Kcal, or as per MD. Nutrition Intervention Change Diet Order: Continue Cardiac Diet. Revisit per MD consult or patient Sign Off request: Additional Comments Continue monitoring food tolerance, %PO intake of meals , and BM.
[2021-05-04] MEDS: ZINC SULFATE 220 MG CAP PO SCH ×2 (09:40→21:23)
[2021-05-04] MEDS: FAMOTIDINE 20 MG TAB PO SCH ×2 (09:40→21:23)
[2021-05-04] MEDS: GABAPENTIN 300 MG CAP PO SCH ×3 (09:41→21:22)
[2021-05-04] MEDS: busPIRone 10 MG TAB PO SCH ×2 (09:41→21:22)
[2021-05-04] MEDS: APIXABAN 5 MG TAB PO SCH ×2 (09:41→21:22)
[2021-05-04] MEDS: ASCORBIC ACID 500 MG TAB PO SCH ×2 (09:41→21:23)
--- NOTE | 2021-05-04 17:21 | Progress Note ---
Assessment and Plan Acute Hypoxemic Respiratory Failure ARDS ANKUSH COVID-19 infection Bilateral pneumonia Leukopenia Morbid obesity Thrombocytopenia Elevated serum transaminases - reduced FiO2 to 90% - continue BIPAP qhs (prn daytime use) - continue to watch closely in step-down unit - continue care as below otherwise; - continue to wean supplemental oxygen for target O2 sat's > 90% acutely - aspiration precautions - continue bronchodilators with pulmonary hygiene per RT - avoid nephrotoxins, renally dose all medications - avoid benzodiazepine's, reduce the possibility of delirium - s/p AB's per ID rec's - continue accuchecks with glycemic control per SSI (While critically ill target blood glucose of 140-180 mg/dL; avoid hypoglycemia) - prn analgesia per pain score - Maintenance of sleep-wake cycle, avoid delirium - G.I. & VTE prophylaxis - PT/OT/ROM exercises - continue mobility protocols for pressure ulcer prophylaxis - Monitor hemodynamics closely - continue other care per attending / other consultants - discharge planning ongoing concurrently COVID SPECIFIC INTERVENTIONS - Remdesivir as per ID/Pulmonary developed protocols (received) - continue systemic steroids for severe COVID-19 infection empirically (Decadron) - follow repeat COVID tests results - zinc and vitamin C supplementation - Monitor inflammatory markers per facility protocol - ferritin, Ddimer, CRP - therapeutic anticoagulation per system Protocol based on d-dimer and clinical considerations (VTE prophylaxis) - Continue contact and airborne isolation .... Re-evaluate in am & prn CONDITION: CRITICAL PROGNOSIS: GUARDED CODE STATUS: FULL CODE The high probability of a clinically significant, sudden or life-threatening deterioration of the [respiratory, ID & cardiovascular] system(s) required my full and direct attention, intervention and personal management. The aggregate critical care time was [35] minutes without overlap. Time includes spent on; [x] Data Review and interpretation [x] Patient assessment and monitoring of vital signs [x] Documentation [x] Medication orders and management Subjective Date of service: 05/04/21 Principal diagnosis: AHRF; ARDS; ANKUSH; COVID-19 infxn; Pneumonia; Morbid Obesity Interval history: Patient is seen today for: Acute Hypoxemic Respiratory Failure; ARDS; ANKUSH; COVID-19 infxn; Pneumonia Seen and examined at bedside; 24hour events reviewed; nursing and respiratory care staff consulted; no adverse overnight events reported to me; resting in bed; remains on HFNC with FiO2 at Objective Vital Signs - 12hr 05/04/21 05/04/21 05/04/21 05:31 06:01 06:31 Temperature Pulse Rate Pulse Rate [ From Monitor] Respiratory Rate Blood Pressure 151/82 158/76 158/76 O2 Sat by Pulse 99 100 100 Oximetry 05/04/21 05/04/21 05/04/21 07:00 07:31 08:00 Temperature 97.0 F L Pulse Rate 62 58 L Pulse Rate [ 90 From Monitor] Respiratory 16 16 26 H Rate Blood Pressure 156/92 156/92 O2 Sat by Pulse 100 100 95 Oximetry 05/04/21 05/04/21 05/04/21 08:01 08:31 09:00 Temperature Pulse Rate 115 H 80 Pulse Rate [ From Monitor] Respiratory 30 H Rate Blood Pressure 124/84 124/84 124/73 O2 Sat by Pulse 85 93 92 Oximetry 05/04/21 05/04/21 05/04/21 09:31 10:01 10:31 Temperature Pulse Rate Pulse Rate [ From Monitor] Respiratory Rate Blood Pressure 124/73 153/94 153/94 O2 Sat by Pulse 99 94 94 Oximetry 05/04/21 05/04/21 05/04/21 11:01 11:31 12:00 Temperature Pulse Rate Pulse Rate [ 88 From Monitor] Respiratory 24 Rate Blood Pressure 153/94 153/94 138/64 O2 Sat by Pulse 98 100 100 Oximetry 05/04/21 05/04/21 05/04/21 12:31 13:00 13:31 Temperature Pulse Rate 88 Pulse Rate [ From Monitor] Respiratory Rate Blood Pressure 138/64 127/67 127/67 O2 Sat by Pulse 100 95 99 Oximetry 05/04/21 05/04/21 05/04/21 14:00 14:31 15:00 Temperature Pulse Rate 76 84 67 Pulse Rate [ From Monitor] Respiratory 16 18 16 Rate Blood Pressure 133/72 133/72 129/67 O2 Sat by Pulse 99 100 94 Oximetry 05/04/21 05/04/21 05/04/21 15:31 16:00 16:31 Temperature Pulse Rate 61 65 80 Pulse Rate [ 84 From Monitor] Respiratory 25 H 26 H 29 H Rate Blood Pressure 129/67 129/74 129/74 O2 Sat by Pulse 97 94 87 Oximetry 05/04/21 17:00 Temperature Pulse Rate 73 Pulse Rate [ From Monitor] Respiratory 21 Rate Blood Pressure 125/64 O2 Sat by Pulse 93 Oximetry Constitutional: alert, appears uncomfortable, other (middle aged morbidly obese male with mildly increased respiratory effort at rest) Eyes: non-icteric ENT: oropharynx moist Neck: supple, no lymphadenopathy, no JVD, other (large circumference) Effort: mildly labored Ascultation: Bilateral: diminished breath sounds, wheezes, rhonchi Percussion: Bilateral: not dull Cardiovascular: irregular rhythm, other (Patient tachycardic rate varies from 120 to 140.) Gastrointestinal: normoactive bowel sounds, soft, non-tender, non-distended (protuberant) Integumentary: normal Extremities: no cyanosis, pink and warm, pulses normal, no ischemia or petechiae, edema (trace) Neurologic: normal mental status, non-focal exam, pupils equal and round, CN II- XII normal Psychiatric: mood appropriate, affect normal CBC and BMP: 05/04/21 06:24 05/04/21 06:24 ABG, PT/INR, D-dimer: ABG ABG pH 7.404 (7.320-7.450) 04/30/21 11:40 POC ABG pCO2 40.8 mmHg (32.0-48.0) 04/30/21 11:40 ABG pCO2 36.2 mm Hg 04/18/21 Unknown POC ABG pO2 71.9 mmHg (83-108) L 04/30/21 11:40 ABG pO2 134.6 mm Hg (80.0-90.0) H 04/18/21 Unknown POC ABG HCO3 24.9 04/30/21 11:40 ABG O2 Saturation 94.4 (0-100) 04/30/21 11:40 PT/INR, D-dimer PT 13.8 Sec. (12.2-14.9) 04/28/21 12:51 INR 0.96 (0.87-1.13) 04/28/21 12:51 D-Dimer 590.58 ng/mlDDU (0-234) H 05/02/21 05:20 Abnormal lab findings: Abnormal Labs 04/16/21 04/16/21 04/17/21 21:18 21:18 16:40 WBC 3.5 L RDW Plt Count 85 L Lymph % (Auto) Summers % (Auto) Lymph # (Auto) 0.7 L Summers # (Auto) Seg Neutrophils % 74.2 H Seg Neuts % (Manual) Lymphocytes % (Manual) Seg Neutrophils # Seg Neutrophils # Man Lymphocytes # (Manual) Monocytes # (Manual) D-Dimer ABG pH POC ABG pO2 ABG pO2 ABG HCO3 ABG O2 Saturation ABG Base Excess ABG Hemoglobin ABG Oxyhemoglobin ABG Sodium ABG Chloride ABG Glucose Oxyhemoglobin Carboxyhemoglobin Sodium 132 L Potassium Chloride 93.8 L Carbon Dioxide BUN Creatinine 0.7 L Glucose 125 H POC Glucose Calcium 8.2 L Ferritin 1918.0 H AST 83 H ALT 63 H Lactate Dehydrogenase C-Reactive Protein Total Protein Albumin 3.7 L Arterial Blood Glucose Arterial Blood Ionized Calcium Coronavirus (PCR) 04/17/21 04/17/21 04/17/21 16:40 16:40 16:40 WBC RDW Plt Count Lymph % (Auto) Summers % (Auto) Lymph # (Auto) Summers # (Auto) Seg Neutrophils % Seg Neuts % (Manual) Lymphocytes % (Manual) Seg Neutrophils # Seg Neutrophils # Man Lymphocytes # (Manual) Monocytes # (Manual) D-Dimer 306.45 H ABG pH POC ABG pO2 ABG pO2 ABG HCO3 ABG O2 Saturation ABG Base Excess ABG Hemoglobin ABG Oxyhemoglobin ABG Sodium ABG Chloride ABG Glucose Oxyhemoglobin Carboxyhemoglobin Sodium 135 L Potassium Chloride 96.2 L Carbon Dioxide BUN Creatinine Glucose 155 H POC Glucose Calcium Ferritin AST 72 H ALT 68 H Lactate Dehydrogenase 505 H C-Reactive Protein 16.30 H Total Protein Albumin 3.5 L Arterial Blood Glucose Arterial Blood Ionized Calcium Coronavirus (PCR) 04/17/21 04/17/21 04/18/21 18:45 Unknown 03:53 WBC RDW 13.1 L Plt Count 115 L Lymph % (Auto) 13.0 L Summers % (Auto) 8.7 H Lymph # (Auto) 1.0 L Summers # (Auto) Seg Neutrophils % 78.2 H Seg Neuts % (Manual) Lymphocytes % (Manual) Seg Neutrophils # Seg Neutrophils # Man Lymphocytes # (Manual) Monocytes # (Manual) D-Dimer ABG pH POC ABG pO2 ABG pO2 56.8 L ABG HCO3 27.4 H ABG O2 Saturation 90.8 L ABG Base Excess 3.1 H ABG Hemoglobin 11.3 L 13.7 L ABG Oxyhemoglobin ABG Sodium ABG Chloride ABG Glucose Oxyhemoglobin 89.4 L Carboxyhemoglobin Sodium Potassium Chloride Carbon Dioxide BUN Creatinine Glucose POC Glucose Calcium Ferritin AST ALT Lactate Dehydrogenase C-Reactive Protein Total Protein Albumin Arterial Blood Glucose Arterial Blood Ionized Calcium Coronavirus (PCR) 04/18/21 04/18/21 04/18/21 03:53 08:02 Unknown WBC RDW Plt Count Lymph % (Auto) Summers % (Auto) Lymph # (Auto) Summers # (Auto) Seg Neutrophils % Seg Neuts % (Manual) Lymphocytes % (Manual) Seg Neutrophils # Seg Neutrophils # Man Lymphocytes # (Manual) Monocytes # (Manual) D-Dimer ABG pH POC ABG pO2 ABG pO2 64.3 L 134.6 H ABG HCO3 26.9 H ABG O2 Saturation 93.6 L ABG Base Excess -3.3 L ABG Hemoglobin 11.9 L ABG Oxyhemoglobin ABG Sodium ABG Chloride ABG Glucose Oxyhemoglobin 92.3 L Carboxyhemoglobin Sodium 135 L Potassium Chloride 95.9 L Carbon Dioxide BUN Creatinine 0.7 L Glucose 149 H POC Glucose Calcium Ferritin AST 62 H ALT 59 H Lactate Dehydrogenase C-Reactive Protein Total Protein Albumin 3.3 L Arterial Blood Glucose Arterial Blood Ionized Calcium Coronavirus (PCR) 04/19/21 04/19/21 04/19/21 01:37 07:28 08:44 WBC RDW Plt Count Lymph % (Auto) Summers % (Auto) Lymph # (Auto) Summers # (Auto) Seg Neutrophils % Seg Neuts % (Manual) Lymphocytes % (Manual) Seg Neutrophils # Seg Neutrophils # Man Lymphocytes # (Manual) Monocytes # (Manual) D-Dimer ABG pH POC ABG pO2 56.3 L ABG pO2 ABG HCO3 ABG O2 Saturation ABG Base Excess ABG Hemoglobin ABG Oxyhemoglobin 88.3 L ABG Sodium 132.8 L ABG Chloride 96.0 L ABG Glucose 145 H Oxyhemoglobin Carboxyhemoglobin 0.4 L Sodium Potassium Chloride 97.4 L Carbon Dioxide BUN Creatinine 0.7 L Glucose 130 H POC Glucose 135 H Calcium Ferritin AST 53 H ALT Lactate Dehydrogenase C-Reactive Protein Total Protein Albumin 3.6 L Arterial Blood Glucose 145 H Arterial Blood Ionized Calcium 4.5 L Coronavirus (PCR) 04/19/21 04/19/21 04/19/21 08:44 11:30 16:53 WBC RDW 12.8 L Plt Count Lymph % (Auto) Summers % (Auto) Lymph # (Auto) Summers # (Auto) Seg Neutrophils % Seg Neuts % (Manual) Lymphocytes % (Manual) Seg Neutrophils # Seg Neutrophils # Man Lymphocytes # (Manual) Monocytes # (Manual) D-Dimer ABG pH POC ABG pO2 ABG pO2 ABG HCO3 ABG O2 Saturation ABG Base Excess ABG Hemoglobin ABG Oxyhemoglobin ABG Sodium ABG Chloride ABG Glucose Oxyhemoglobin Carboxyhemoglobin Sodium Potassium Chloride Carbon Dioxide BUN Creatinine Glucose POC Glucose 129 H 146 H Calcium Ferritin AST ALT Lactate Dehydrogenase C-Reactive Protein Total Protein Albumin Arterial Blood Glucose Arterial Blood Ionized Calcium Coronavirus (PCR) 04/19/21 04/19/21 04/20/21 17:21 21:07 07:18 WBC RDW Plt Count Lymph % (Auto) Summers % (Auto) Lymph # (Auto) Summers # (Auto) Seg Neutrophils % Seg Neuts % (Manual) Lymphocytes % (Manual) Seg Neutrophils # Seg Neutrophils # Man Lymphocytes # (Manual) Monocytes # (Manual) D-Dimer ABG pH 7.480 H POC ABG pO2 108.6 H ABG pO2 ABG HCO3 ABG O2 Saturation ABG Base Excess ABG Hemoglobin ABG Oxyhemoglobin ABG Sodium 134.1 L ABG Chloride 97.0 L ABG Glucose 167 H Oxyhemoglobin Carboxyhemoglobin 0.4 L Sodium Potassium Chloride Carbon Dioxide BUN Creatinine Glucose POC Glucose 152 H 128 H Calcium Ferritin AST ALT Lactate Dehydrogenase C-Reactive Protein Total Protein Albumin Arterial Blood Glucose 167 H Arterial Blood Ionized Calcium Coronavirus (PCR) 04/20/21 04/20/21 04/20/21 11:08 11:08 11:08 WBC RDW Plt Count Lymph % (Auto) Summers % (Auto) Lymph # (Auto) Summers # (Auto) Seg Neutrophils % Seg Neuts % (Manual) Lymphocytes % (Manual) Seg Neutrophils # Seg Neutrophils # Man Lymphocytes # (Manual) Monocytes # (Manual) D-Dimer 1082.55 H ABG pH POC ABG pO2 ABG pO2 ABG HCO3 ABG O2 Saturation ABG Base Excess ABG Hemoglobin ABG Oxyhemoglobin ABG Sodium ABG Chloride ABG Glucose Oxyhemoglobin Carboxyhemoglobin Sodium Potassium Chloride Carbon Dioxide BUN 26 H Creatinine Glucose 121 H POC Glucose Calcium Ferritin 1389.0 H AST 46 H ALT Lactate Dehydrogenase 647 H C-Reactive Protein 5.50 H Total Protein Albumin 3.5 L Arterial Blood Glucose Arterial Blood Ionized Calcium Coronavirus (PCR) 04/20/21 04/20/21 04/20/21 11:08 16:04 21:10 WBC RDW 12.9 L Plt Count Lymph % (Auto) Summers % (Auto) 14.0 H Lymph # (Auto) Summers # (Auto) 0.9 H Seg Neutrophils % Seg Neuts % (Manual) Lymphocytes % (Manual) Seg Neutrophils # Seg Neutrophils # Man Lymphocytes # (Manual) Monocytes # (Manual) D-Dimer ABG pH POC ABG pO2 ABG pO2 ABG HCO3 ABG O2 Saturation ABG Base Excess ABG Hemoglobin ABG Oxyhemoglobin ABG Sodium ABG Chloride ABG Glucose Oxyhemoglobin Carboxyhemoglobin Sodium Potassium Chloride Carbon Dioxide BUN Creatinine Glucose POC Glucose 159 H 149 H Calcium Ferritin AST ALT Lactate Dehydrogenase C-Reactive Protein Total Protein Albumin Arterial Blood Glucose Arterial Blood Ionized Calcium Coronavirus (PCR) 04/20/21 04/21/21 04/21/21 Unknown 11:34 11:34 WBC RDW 13.1 L Plt Count Lymph % (Auto) Summers % (Auto) 13.0 H Lymph # (Auto) Summers # (Auto) 1.2 H Seg Neutrophils % 70.4 H Seg Neuts % (Manual) Lymphocytes % (Manual) Seg Neutrophils # Seg Neutrophils # Man Lymphocytes # (Manual) Monocytes # (Manual) D-Dimer ABG pH POC ABG pO2 ABG pO2 ABG HCO3 ABG O2 Saturation ABG Base Excess ABG Hemoglobin ABG Oxyhemoglobin ABG Sodium ABG Chloride ABG Glucose Oxyhemoglobin Carboxyhemoglobin Sodium Potassium Chloride Carbon Dioxide BUN 27 H Creatinine Glucose 107 H POC Glucose Calcium Ferritin AST 46 H ALT Lactate Dehydrogenase C-Reactive Protein Total Protein Albumin 3.4 L Arterial Blood Glucose Arterial Blood Ionized Calcium Coronavirus (PCR) Positive A 04/21/21 04/21/21 04/22/21 17:00 22:05 04:49 WBC RDW Plt Count Lymph % (Auto) 12.2 L Summers % (Auto) 10.7 H Lymph # (Auto) Summers # (Auto) 1.1 H Seg Neutrophils % 76.6 H Seg Neuts % (Manual) Lymphocytes % (Manual) Seg Neutrophils # Seg Neutrophils # Man Lymphocytes # (Manual) Monocytes # (Manual) D-Dimer ABG pH POC ABG pO2 ABG pO2 ABG HCO3 ABG O2 Saturation ABG Base Excess ABG Hemoglobin ABG Oxyhemoglobin ABG Sodium ABG Chloride ABG Glucose Oxyhemoglobin Carboxyhemoglobin Sodium Potassium Chloride Carbon Dioxide BUN Creatinine Glucose POC Glucose 138 H 133 H Calcium Ferritin AST ALT Lactate Dehydrogenase C-Reactive Protein Total Protein Albumin Arterial Blood Glucose Arterial Blood Ionized Calcium Coronavirus (PCR) 04/22/21 04/22/21 04/22/21 04:49 04:49 04:49 WBC RDW Plt Count Lymph % (Auto) Summers % (Auto) Lymph # (Auto) Summers # (Auto) Seg Neutrophils % Seg Neuts % (Manual) Lymphocytes % (Manual) Seg Neutrophils # Seg Neutrophils # Man Lymphocytes # (Manual) Monocytes # (Manual) D-Dimer 1880.44 H ABG pH POC ABG pO2 ABG pO2 ABG HCO3 ABG O2 Saturation ABG Base Excess ABG Hemoglobin ABG Oxyhemoglobin ABG Sodium ABG Chloride ABG Glucose Oxyhemoglobin Carboxyhemoglobin Sodium Potassium Chloride 108.6 H Carbon Dioxide 21 L D BUN 28 H Creatinine 0.6 L Glucose 115 H POC Glucose Calcium Ferritin 1185.0 H AST 50 H ALT Lactate Dehydrogenase 759 H C-Reactive Protein 1.60 H Total Protein Albumin 3.1 L Arterial Blood Glucose Arterial Blood Ionized Calcium Coronavirus (PCR) 04/22/21 04/22/21 04/23/21 16:17 22:08 21:14 WBC RDW Plt Count Lymph % (Auto) Summers % (Auto) Lymph # (Auto) Summers # (Auto) Seg Neutrophils % Seg Neuts % (Manual) Lymphocytes % (Manual) Seg Neutrophils # Seg Neutrophils # Man Lymphocytes # (Manual) Monocytes # (Manual) D-Dimer ABG pH POC ABG pO2 ABG pO2 ABG HCO3 ABG O2 Saturation ABG Base Excess ABG Hemoglobin ABG Oxyhemoglobin ABG Sodium ABG Chloride ABG Glucose Oxyhemoglobin Carboxyhemoglobin Sodium Potassium Chloride Carbon Dioxide BUN Creatinine Glucose POC Glucose 158 H 134 H 159 H Calcium Ferritin AST ALT Lactate Dehydrogenase C-Reactive Protein Total Protein Albumin Arterial Blood Glucose Arterial Blood Ionized Calcium Coronavirus (PCR) 04/24/21 04/25/21 04/25/21 21:20 11:33 16:23 WBC RDW Plt Count Lymph % (Auto) Summers % (Auto) Lymph # (Auto) Summers # (Auto) Seg Neutrophils % Seg Neuts % (Manual) Lymphocytes % (Manual) Seg Neutrophils # Seg Neutrophils # Man Lymphocytes # (Manual) Monocytes # (Manual) D-Dimer ABG pH POC ABG pO2 ABG pO2 ABG HCO3 ABG O2 Saturation ABG Base Excess ABG Hemoglobin ABG Oxyhemoglobin ABG Sodium ABG Chloride ABG Glucose Oxyhemoglobin Carboxyhemoglobin Sodium Potassium Chloride Carbon Dioxide BUN Creatinine Glucose POC Glucose 161 H 126 H 176 H Calcium Ferritin AST ALT Lactate Dehydrogenase C-Reactive Protein Total Protein Albumin Arterial Blood Glucose Arterial Blood Ionized Calcium Coronavirus (PCR) 04/25/21 04/26/21 04/26/21 21:06 16:26 21:26 WBC RDW Plt Count Lymph % (Auto) Summers % (Auto) Lymph # (Auto) Summers # (Auto) Seg Neutrophils % Seg Neuts % (Manual) Lymphocytes % (Manual) Seg Neutrophils # Seg Neutrophils # Man Lymphocytes # (Manual) Monocytes # (Manual) D-Dimer ABG pH POC ABG pO2 ABG pO2 ABG HCO3 ABG O2 Saturation ABG Base Excess ABG Hemoglobin ABG Oxyhemoglobin ABG Sodium ABG Chloride ABG Glucose Oxyhemoglobin Carboxyhemoglobin Sodium Potassium Chloride Carbon Dioxide BUN Creatinine Glucose POC Glucose 214 H 119 H 114 H Calcium Ferritin AST ALT Lactate Dehydrogenase C-Reactive Protein Total Protein Albumin Arterial Blood Glucose Arterial Blood Ionized Calcium Coronavirus (PCR) 04/27/21 04/27/21 04/28/21 07:32 22:02 12:51 WBC 14.9 H RDW 12.8 L Plt Count Lymph % (Auto) 9.5 L Summers % (Auto) Lymph # (Auto) Summers # (Auto) 1.0 H Seg Neutrophils % 81.2 H Seg Neuts % (Manual) Lymphocytes % (Manual) Seg Neutrophils # 12.1 H Seg Neutrophils # Man Lymphocytes # (Manual) Monocytes # (Manual) D-Dimer ABG pH POC ABG pO2 ABG pO2 ABG HCO3 ABG O2 Saturation ABG Base Excess ABG Hemoglobin ABG Oxyhemoglobin ABG Sodium ABG Chloride ABG Glucose Oxyhemoglobin Carboxyhemoglobin Sodium Potassium Chloride Carbon Dioxide BUN Creatinine Glucose POC Glucose 109 H 127 H Calcium Ferritin AST ALT Lactate Dehydrogenase C-Reactive Protein Total Protein Albumin Arterial Blood Glucose Arterial Blood Ionized Calcium Coronavirus (PCR) 04/28/21 04/28/21 04/28/21 12:51 12:51 12:51 WBC RDW Plt Count Lymph % (Auto) Summers % (Auto) Lymph # (Auto) Summers # (Auto) Seg Neutrophils % Seg Neuts % (Manual) Lymphocytes % (Manual) Seg Neutrophils # Seg Neutrophils # Man Lymphocytes # (Manual) Monocytes # (Manual) D-Dimer 861.39 H ABG pH POC ABG pO2 ABG pO2 ABG HCO3 ABG O2 Saturation ABG Base Excess ABG Hemoglobin ABG Oxyhemoglobin ABG Sodium ABG Chloride ABG Glucose Oxyhemoglobin Carboxyhemoglobin Sodium 134 L Potassium Chloride 95.2 L Carbon Dioxide BUN Creatinine 0.6 L Glucose 121 H POC Glucose Calcium Ferritin AST ALT Lactate Dehydrogenase 769 H C-Reactive Protein Total Protein Albumin Arterial Blood Glucose Arterial Blood Ionized Calcium Coronavirus (PCR) 04/28/21 04/28/21 04/28/21 12:51 16:59 21:17 WBC RDW Plt Count Lymph % (Auto) Summers % (Auto) Lymph # (Auto) Summers # (Auto) Seg Neutrophils % Seg Neuts % (Manual) Lymphocytes % (Manual) Seg Neutrophils # Seg Neutrophils # Man Lymphocytes # (Manual) Monocytes # (Manual) D-Dimer ABG pH POC ABG pO2 ABG pO2 ABG HCO3 ABG O2 Saturation ABG Base Excess ABG Hemoglobin ABG Oxyhemoglobin ABG Sodium ABG Chloride ABG Glucose Oxyhemoglobin Carboxyhemoglobin Sodium Potassium Chloride Carbon Dioxide BUN Creatinine Glucose POC Glucose 124 H 146 H Calcium Ferritin 1009.0 H AST ALT Lactate Dehydrogenase C-Reactive Protein Total Protein Albumin Arterial Blood Glucose Arterial Blood Ionized Calcium Coronavirus (PCR) 04/29/21 04/30/21 04/30/21 21:28 04:59 04:59 WBC 30.4 H RDW Plt Count Lymph % (Auto) Summers % (Auto) Lymph # (Auto) Summers # (Auto) Seg Neutrophils % Seg Neuts % (Manual) 88.0 H Lymphocytes % (Manual) 0 L Seg Neutrophils # Seg Neutrophils # Man 26.8 H Lymphocytes # (Manual) 0.0 L Monocytes # (Manual) 2.1 H D-Dimer 592.16 H ABG pH POC ABG pO2 ABG pO2 ABG HCO3 ABG O2 Saturation ABG Base Excess ABG Hemoglobin ABG Oxyhemoglobin ABG Sodium ABG Chloride ABG Glucose Oxyhemoglobin Carboxyhemoglobin Sodium Potassium Chloride Carbon Dioxide BUN Creatinine Glucose POC Glucose 190 H Calcium Ferritin AST ALT Lactate Dehydrogenase C-Reactive Protein Total Protein Albumin Arterial Blood Glucose Arterial Blood Ionized Calcium Coronavirus (PCR) 04/30/21 04/30/21 04/30/21 04:59 04:59 07:32 WBC RDW Plt Count Lymph % (Auto) Summers % (Auto) Lymph # (Auto) Summers # (Auto) Seg Neutrophils % Seg Neuts % (Manual) Lymphocytes % (Manual) Seg Neutrophils # Seg Neutrophils # Man Lymphocytes # (Manual) Monocytes # (Manual) D-Dimer ABG pH POC ABG pO2 ABG pO2 ABG HCO3 ABG O2 Saturation ABG Base Excess ABG Hemoglobin ABG Oxyhemoglobin ABG Sodium ABG Chloride ABG Glucose Oxyhemoglobin Carboxyhemoglobin Sodium Potassium Chloride 97.4 L Carbon Dioxide BUN Creatinine 0.6 L Glucose 180 H POC Glucose 161 H Calcium Ferritin 789.6 H AST ALT 68 H Lactate Dehydrogenase 947 H C-Reactive Protein Total Protein Albumin 3.8 L Arterial Blood Glucose Arterial Blood Ionized Calcium Coronavirus (PCR) 04/30/21 04/30/21 04/30/21 11:02 11:40 16:24 WBC RDW Plt Count Lymph % (Auto) Summers % (Auto) Lymph # (Auto) Summers # (Auto) Seg Neutrophils % Seg Neuts % (Manual) Lymphocytes % (Manual) Seg Neutrophils # Seg Neutrophils # Man Lymphocytes # (Manual) Monocytes # (Manual) D-Dimer ABG pH POC ABG pO2 71.9 L ABG pO2 ABG HCO3 ABG O2 Saturation ABG Base Excess ABG Hemoglobin ABG Oxyhemoglobin 93.6 L ABG Sodium 132.7 L ABG Chloride 97.0 L ABG Glucose 191 H Oxyhemoglobin Carboxyhemoglobin Sodium Potassium Chloride Carbon Dioxide BUN Creatinine Glucose POC Glucose 203 H 205 H Calcium Ferritin AST ALT Lactate Dehydrogenase C-Reactive Protein Total Protein Albumin Arterial Blood Glucose 191 H Arterial Blood Ionized Calcium Coronavirus (PCR) 04/30/21 05/01/21 05/01/21 21:16 05:22 07:33 WBC RDW Plt Count Lymph % (Auto) Summers % (Auto) Lymph # (Auto) Summers # (Auto) Seg Neutrophils % Seg Neuts % (Manual) Lymphocytes % (Manual) Seg Neutrophils # Seg Neutrophils # Man Lymphocytes # (Manual) Monocytes # (Manual) D-Dimer ABG pH POC ABG pO2 ABG pO2 ABG HCO3 ABG O2 Saturation ABG Base Excess ABG Hemoglobin ABG Oxyhemoglobin ABG Sodium ABG Chloride ABG Glucose Oxyhemoglobin Carboxyhemoglobin Sodium Potassium Chloride Carbon Dioxide BUN Creatinine 0.6 L Glucose POC Glucose 184 H 199 H Calcium Ferritin AST ALT Lactate Dehydrogenase C-Reactive Protein Total Protein Albumin Arterial Blood Glucose Arterial Blood Ionized Calcium Coronavirus (PCR) 05/01/21 05/01/21 05/02/21 11:36 22:14 05:20 WBC 21.3 H RDW Plt Count Lymph % (Auto) Summers % (Auto) Lymph # (Auto) Summers # (Auto) Seg Neutrophils % Seg Neuts % (Manual) 94.0 H Lymphocytes % (Manual) 2.0 L Seg Neutrophils # Seg Neutrophils # Man 20.0 H Lymphocytes # (Manual) 0.4 L Monocytes # (Manual) 0.9 H D-Dimer ABG pH POC ABG pO2 ABG pO2 ABG HCO3 ABG O2 Saturation ABG Base Excess ABG Hemoglobin ABG Oxyhemoglobin ABG Sodium ABG Chloride ABG Glucose Oxyhemoglobin Carboxyhemoglobin Sodium Potassium Chloride Carbon Dioxide BUN Creatinine Glucose POC Glucose 196 H 236 H Calcium Ferritin AST ALT Lactate Dehydrogenase C-Reactive Protein Total Protein Albumin Arterial Blood Glucose Arterial Blood Ionized Calcium Coronavirus (PCR) 05/02/21 05/02/21 05/02/21 05:20 05:20 05:20 WBC RDW Plt Count Lymph % (Auto) Summers % (Auto) Lymph # (Auto) Summers # (Auto) Seg Neutrophils % Seg Neuts % (Manual) Lymphocytes % (Manual) Seg Neutrophils # Seg Neutrophils # Man Lymphocytes # (Manual) Monocytes # (Manual) D-Dimer 590.58 H ABG pH POC ABG pO2 ABG pO2 ABG HCO3 ABG O2 Saturation ABG Base Excess ABG Hemoglobin ABG Oxyhemoglobin ABG Sodium ABG Chloride ABG Glucose Oxyhemoglobin Carboxyhemoglobin Sodium 136 L Potassium 5.1 H Chloride 97.1 L Carbon Dioxide BUN Creatinine 0.6 L Glucose 204 H POC Glucose Calcium Ferritin 692.6 H AST ALT Lactate Dehydrogenase 775 H C-Reactive Protein Total Protein 5.8 L Albumin 3.5 L Arterial Blood Glucose Arterial Blood Ionized Calcium Coronavirus (PCR) 05/03/21 05/03/21 05/04/21 11:31 16:13 06:24 WBC 20.0 H RDW 13.1 L Plt Count Lymph % (Auto) Summers % (Auto) Lymph # (Auto) Summers # (Auto) Seg Neutrophils % Seg Neuts % (Manual) Lymphocytes % (Manual) Seg Neutrophils # Seg Neutrophils # Man Lymphocytes # (Manual) Monocytes # (Manual) D-Dimer ABG pH POC ABG pO2 ABG pO2 ABG HCO3 ABG O2 Saturation ABG Base Excess ABG Hemoglobin ABG Oxyhemoglobin ABG Sodium ABG Chloride ABG Glucose Oxyhemoglobin Carboxyhemoglobin Sodium Potassium Chloride Carbon Dioxide BUN Creatinine Glucose POC Glucose 274 H 277 H Calcium Ferritin AST ALT Lactate Dehydrogenase C-Reactive Protein Total Protein Albumin Arterial Blood Glucose Arterial Blood Ionized Calcium Coronavirus (PCR) 05/04/21 05/04/21 05/04/21 06:24 08:04 11:01 WBC RDW Plt Count Lymph % (Auto) Summers % (Auto) Lymph # (Auto) Summers # (Auto) Seg Neutrophils % Seg Neuts % (Manual) Lymphocytes % (Manual) Seg Neutrophils # Seg Neutrophils # Man Lymphocytes # (Manual) Monocytes # (Manual) D-Dimer ABG pH POC ABG pO2 ABG pO2 ABG HCO3 ABG O2 Saturation ABG Base Excess ABG Hemoglobin ABG Oxyhemoglobin ABG Sodium ABG Chloride ABG Glucose Oxyhemoglobin Carboxyhemoglobin Sodium Potassium Chloride Carbon Dioxide BUN Creatinine 0.6 L Glucose POC Glucose 167 H 234 H Calcium Ferritin AST ALT Lactate Dehydrogenase C-Reactive Protein Total Protein Albumin Arterial Blood Glucose Arterial Blood Ionized Calcium Coronavirus (PCR) 05/04/21 16:27 WBC RDW Plt Count Lymph % (Auto) [place] % (Auto) Lymph # (Auto) [place] # (Auto) Seg Neutrophils % Seg Neuts % (Manual) Lymphocytes % (Manual) Seg Neutrophils # Seg Neutrophils # Man Lymphocytes # (Manual) Monocytes # (Manual) D-Dimer ABG pH POC ABG pO2 ABG pO2 ABG HCO3 ABG O2 Saturation ABG Base Excess ABG Hemoglobin ABG Oxyhemoglobin ABG Sodium ABG Chloride ABG Glucose Oxyhemoglobin Carboxyhemoglobin Sodium Potassium Chloride Carbon Dioxide BUN Creatinine Glucose POC Glucose 237 H Calcium Ferritin AST ALT Lactate Dehydrogenase C-Reactive Protein Total Protein Albumin Arterial Blood Glucose Arterial Blood Ionized Calcium Coronavirus (PCR) Allied health notes reviewed: nursing
[2021-05-04] MEDS: BUDESONIDE 0.5 MG/2 ML NEBU IH SCH (21:15)
[2021-05-04] MEDS: ALPRAZolam 0.25 MG TAB PO SCH (21:23)
[2021-05-05] MEDS: methylPREDNISolone Sod Succinate 125 MG/2 ML INJ IV SCH ×5 (00:29→23:05)
[2021-05-05] MEDS: BENZONATATE 100 MG CAP PO SCH ×3 (05:25→22:59)
[2021-05-05 06:21] LABS: Basophils % (Auto) 0.2 % (0.0-1.8); Eosinophils % (Auto) 0.1 % (0.0-4.3); Hematocrit 43.2 % (35.5-45.6); Hemoglobin 14.1 gm/dl (11.8-15.2); Lymphocytes # (Auto) 0.9 K/mm3 (1.2-5.4); Lymphocytes % (Auto) 4.7 % (13.4-35.0); Mean Corpuscular HGB Conc 33 % (32-34); Mean Corpuscular Volume 89 fl (84-94); Monocytes # (Auto) 1.1 K/mm3 (0.0-0.8); Monocytes % (Auto) 5.6 % (0.0-7.3); Platelet Count 186 K/mm3 (140-440); Red Blood Count 4.86 M/mm3 (3.65-5.03); Red Cell Distribution Width 13.2 % (13.2-15.2)
[2021-05-05 06:51] LABS: Alanine Aminotransferase 53 units/L (7-56); Albumin 3.5 g/dL (3.9-5); Blood Urea Nitrogen 17 mg/dL (9-20); Calcium 8.9 mg/dL (8.4-10.2); Hemolysis Index 14
[2021-05-05 06:57] LABS: BUN/Creatinine Ratio 34
[2021-05-05] MEDS: BUDESONIDE 0.5 MG/2 ML NEBU IH SCH (08:52)
--- NOTE | 2021-05-05 09:39 | XRay Report ---
CHEST 1 VIEW INDICATION: covid 19 pna. COMPARISON: 05/02/2021 FINDINGS: Support devices: None. Heart: Within normal limits. Lungs/Pleura: Bilateral lung opacities have decreased by 50%. No pleural effusion or pneumothorax. Additional findings: None. IMPRESSION: Mild improvement in the bilateral lung opacities. No new acute process. Signer Name: Dario Vazquez Jr, MD Signed: 05/05/2021 9:34 AM Workstation Name: [id number]
[2021-05-05] MEDS: FAMOTIDINE 20 MG TAB PO SCH ×2 (10:41→22:59)
[2021-05-05] MEDS: busPIRone 10 MG TAB PO SCH ×2 (10:41→23:04)
[2021-05-05] MEDS: ASCORBIC ACID 500 MG TAB PO SCH ×2 (10:41→22:59)
[2021-05-05] MEDS: APIXABAN 5 MG TAB PO SCH ×2 (10:41→22:58)
[2021-05-05] MEDS: GABAPENTIN 300 MG CAP PO SCH ×3 (10:41→22:59)
[2021-05-05] MEDS: ZINC SULFATE 220 MG CAP PO SCH ×2 (10:41→22:58)
--- NOTE | 2021-05-05 13:22 | Progress Note ---
Assessment and Plan Assessment and plan: HPI: 51-year-old male with history of morbid obesity, hypertension, migraine, coronary osteoarthritis and GERD and headache was brought to the emergency room because of progressive shortness of breath. Patient has history of Covid and he was admitted last week to the hospital. He states he was sent home with oxygen however he is needed 4 L of oxygen and his shortness of breath has gotten worse when he walks his oxygen drops down to the mid 80s. Patient stated that he came into contact with an individual who had tested positive for COVID-19 viral infection, but he admits that he has been fully vaccinated against COVID-19 viral infection. In the emergency room patient CT scan of the chest showed scattered groundglass opacities at the bilateral lung suggesting atypical infectious process. hospital course: 04/18/21 Patient with recently diagnosed Covid-19 04/13/21 as outpatient. Presents with shortness of breath. Now on Remdesivir, Decadron, Rocephin, Zithromax. Patient also has sleep apnea uses CPAP at home. Pulm and ID following He is currently on BIPAP 04/19/21:clinically the patient appears to be in no distress despite being on 100% fio2 bipap mask. However, ABG data looks worse, Po2: 56.3. CXR demonstrates worsened pulmonary interstitial infiltrates. Discussed case with Dr. Lagunas. Low threshold for intubation should he worsen. Patient was advised on my encounter to maintain bipap mask and not remove it. Continue therapy with decadron, remdesivir. Dc abx due to low procal. Actemra ordered. Will follow ID recs. Consult PT to continue mobilizing patient. Encouraged patient to do so in presence of care staff 04/20/2021: Remains bipap dependent. No acute changes in respiratory status. Unfortunately he is low threshold for intubation. Will follow pulmonology/ID recommendations. 04/21/2021: Remains bipap dependent. Currenlty 100%. No changes overnight. Will follow pulm/ID recs. 04/22/2021. Patient currently requiring high flow nasal cannula with 40 L O2 FiO2 of 100%. Continue dexamethasone 6 mg IV for total of 10 days with remdesivir IV x5 days. Continue to follow inflammatory markers of ferritin, D-dimer, CRP and LDH. Patient is s/p Tocilizumab. Prone positioning as able. 04/23/2021: Patient currently requiring high flow nasal cannula with 40 L O2 FiO2 of 100% and BiPAP at night. Continue dexamethasone 6 mg IV for total of 10 days with remdesivir IV x5 days. Continue to follow inflammatory markers of ferritin, D-dimer, CRP and LDH. Patient is s/p Tocilizumab. Prone positioning as able. ID and pulmonary following. 04/24/2021: Patient currently requiring high flow nasal cannula with 40 L O2 FiO2 of 90% and BiPAP at night. Continue dexamethasone 6 mg IV for total of 10 days with remdesivir IV x5 days. Continue to follow inflammatory markers of ferritin, D-dimer, CRP and LDH. Patient is s/p Tocilizumab. Prone positioning as able. ID and pulmonary following. 04/25/2021. Patient currently requiring high flow nasal cannula with 40 L O2 FiO2 of 70% and BiPAP at night. Continue dexamethasone 6 mg IV for total of 10 days with remdesivir IV x5 days. Continue to follow inflammatory markers of ferritin, D-dimer, CRP and LDH. Patient is s/p Tocilizumab. Prone positioning as able. ID and pulmonary following. 04/26/2021. Patient currently requiring high flow nasal cannula with 40 L O2 FiO2 of 80% and BiPAP at night. O2 requirement had to be increased slightly since yesterday. Continue current management. Patient is s/p Tocilizumab. The dexamethasone and remdesivir have been completed. Consider continuing steroids given the ongoing hypoxia. Defer to pulmonary. Continue to monitor inflammatory markers of ferritin, D-dimer, CRP and LDH. 04/27/2021. Patient currently requiring high flow nasal cannula with 40 L O2 FiO2 of 80% and BiPAP at night. Continue current management. Patient is s/p Tocilizumab. The dexamethasone and remdesivir have been completed. Consider continuing steroids given the ongoing hypoxia. Defer to pulmonary. Continue to monitor inflammatory markers of ferritin, D-dimer, CRP and LDH. 04/28/2021. Patient still requiring high flow nasal cannula with 40 L O2 FiO2 of 80% and BiPAP at night. Patient is s/p Tocilizumab. The dexamethasone and remdesivir have been completed. Pulmonology recommends Eliquis for increased D- dimer. However, CTA negative from 04/16/2021. Continue to trend inflammatory markers. 04/29/2021: Currently on hi flow FIo 2 80%. Remains on high dose steroids. Added budesonide to inhaler regimen. Will continue to follow for improvement. 04/30/2021: Remains on hi flow FIo 2 80%. Continue current supportive management for covid pneumonia. Called physical therapist to work with patient to mobilize and educate on exercises patient can do while hospitalized. Additionally, I suspect patient has some underlying anxiety after discussion this AM. WIll add buspar to medications. Will d/w CM regarding placement options for patient. 05/01/2021: Remains on hi flow 40/100 today. Patient doing well, very small incremental improvements. Working with CM for LTAC placement 05/02/2021: Remains on hi flow. Awaiting LTAC placement. 05/03/2021: Remains on hi flow. Awaiting LTAC placement. Discussed plan with patient at bedside and answered questions to satisfaction. 05/04/2021: Remains on hi flow in the day, bipap at night. Continue agressive weaning. Awaiting ltac placement. 05/05/2021: Remains on hi flow in the day, bipap at night. Currently 40/70. Continue aggressive weaning. Awaiting ltac placement. Assessment and Plan: #Acute hypoxic respiratory failure - on hi stephan nasal cannula , bipap nightly and prn in daytime. - albuterol 2.5 IH q4hr prn /budesonide bid - continue solumedrol. - pulmonology following #Severe COVID-19 pneumonia - RT PCR positive, patient reports having Pfizer vaccine x2 doses - follow inflammatory markers - decadron initiated initially, now on solumedrol 60 q6 - s/p tociluzimab, remdemsivir - apixaban #Anxiety - continue alprazolam - buspar 10 mg po bid -continue xanax prn. # Hypertension - hydralazine prn #GERD - Pepcid 20 mg IV bid # History of Arthritis -moprhine prn # Neuropathy - gabapentin 300 mg po tid #Morbid obesity - poor prognosticator in severe covid 19 presentations DVT Ppx: heparin 5000 units q8hr Dispo: IMCU The high probability of a clinically significant, sudden or life threatening deterioration of the [pulmonary, neuro] system(s) required my full and direct attention, intervention and personal management. The aggregate critical care time was [60] minutes. This time is in addition to time spent performing reported procedures but includes the following: [x] Data Review and interpretation [x] Patient assessment and monitoring of vital signs [x] Documentation [x] Medication orders and management History Interval history: Doing well this AM. In good spirits. HiFLow 40/70. Hospitalist Physical - Physical exam Narrative exam: GENERAL: Not in acute distress, sitting up in bed, morbidly obese . on hi flow nc HEENT: Normocephalic. Atraumatic. Patient has moist mucous membranes. NECK: Supple. Trachea midline. CHEST/LUNGS: Bilateral crackles. HEART/CARDIOVASCULAR: Regular in rate and rhythm. S1 and S2 positive. ABDOMEN: Abdomen is soft, nontender. Patient has normal bowel sounds. SKIN: There is no rash. Warm and dry. NEURO: No focal motor deficit. Follows command. MUSCULOSKELETAL: No joint effusion or tenderness. EXTRIMITY: No edema, no cyanosis or clubbing. PSYCH: Cooperative. - Constitutional Vitals: Temp Pulse Resp BP Pulse Ox 98.9 F 67 22 126/75 96 05/05/21 12:06 05/05/21 11:00 05/05/21 11:00 05/05/21 11:00 05/05/21 11:00 General appearance: Present: no acute distress, obese Results - Labs CBC & Chem 7: 05/05/21 06:05 05/05/21 06:05 Labs: Laboratory Last Values WBC 18.9 K/mm3 (4.5-11.0) H 05/05/21 06:05 RBC 4.86 M/mm3 (3.65-5.03) 05/05/21 06:05 Hgb 14.1 gm/dl (11.8-15.2) 05/05/21 06:05 Hct 43.2 % (35.5-45.6) 05/05/21 06:05 MCV 89 fl (84-94) 05/05/21 06:05 MCH 29 pg (28-32) 05/05/21 06:05 MCHC 33 % (32-34) 05/05/21 06:05 RDW 13.2 % (13.2-15.2) 05/05/21 06:05 Plt Count 186 K/mm3 (140-440) 05/05/21 06:05 Lymph % (Auto) 4.7 % (13.4-35.0) L 05/05/21 06:05 [place] % (Auto) 5.6 % (0.0-7.3) 05/05/21 06:05 Eos % (Auto) 0.1 % (0.0-4.3) 05/05/21 06:05 Baso % (Auto) 0.2 % (0.0-1.8) 05/05/21 06:05 Lymph # (Auto) 0.9 K/mm3 (1.2-5.4) L 05/05/21 06:05 [place] # (Auto) 1.1 K/mm3 (0.0-0.8) H 05/05/21 06:05 Eos # (Auto) 0.0 K/mm3 (0.0-0.4) 05/05/21 06:05 Baso # (Auto) 0.0 K/mm3 (0.0-0.1) 05/05/21 06:05 Add Manual Diff Complete 05/02/21 05:20 Total Counted 100 05/02/21 05:20 Seg Neutrophils % 89.4 % (40.0-70.0) H 05/05/21 06:05 Seg Neuts % (Manual) 94.0 % (40.0-70.0) H 05/02/21 05:20 Band Neutrophils % 0 % 05/02/21 05:20 Lymphocytes % (Manual) 2.0 % (13.4-35.0) L 05/02/21 05:20 Reactive Lymphs % (Man) 0 % 05/02/21 05:20 Monocytes % (Manual) 4.0 % (0.0-7.3) 05/02/21 05:20 Eosinophils % (Manual) 0 % (0.0-4.3) 05/02/21 05:20 Basophils % (Manual) 0 % (0.0-1.8) 05/02/21 05:20 Metamyelocytes % 0 % 05/02/21 05:20 Myelocytes % 0 % 05/02/21 05:20 Promyelocytes % 0 % 05/02/21 05:20 Blast Cells % 0 % 05/02/21 05:20 Nucleated RBC % Not Reportable 05/02/21 05:20 Seg Neutrophils # 16.9 K/mm3 (1.8-7.7) H 05/05/21 06:05 Seg Neutrophils # Man 20.0 K/mm3 (1.8-7.7) H 05/02/21 05:20 Band Neutrophils # 0.0 K/mm3 05/02/21 05:20 Lymphocytes # (Manual) 0.4 K/mm3 (1.2-5.4) L 05/02/21 05:20 Abs React Lymphs (Man) 0.0 K/mm3 05/02/21 05:20 Monocytes # (Manual) 0.9 K/mm3 (0.0-0.8) H 05/02/21 05:20 Eosinophils # (Manual) 0.0 K/mm3 (0.0-0.4) 05/02/21 05:20 Basophils # (Manual) 0.0 K/mm3 (0.0-0.1) 05/02/21 05:20 Metamyelocytes # 0.0 K/mm3 05/02/21 05:20 Myelocytes # 0.0 K/mm3 05/02/21 05:20 Promyelocytes # 0.0 K/mm3 05/02/21 05:20 Blast Cells # 0.0 K/mm3 05/02/21 05:20 WBC Morphology Not Reportable 05/02/21 05:20 Hypersegmented Neuts Not Reportable 05/02/21 05:20 Hyposegmented Neuts Not Reportable 05/02/21 05:20 Hypogranular Neuts Not Reportable 05/02/21 05:20 Smudge Cells Not Reportable 05/02/21 05:20 Toxic Granulation Not Reportable 05/02/21 05:20 Toxic Vacuolation Not Reportable 05/02/21 05:20 Dohle Bodies Not Reportable 05/02/21 05:20 Pelger-Huet Anomaly Not Reportable 05/02/21 05:20 Dang Rods Not Reportable 05/02/21 05:20 Platelet Estimate Consistent w auto 05/02/21 05:20 Clumped Platelets Not Reportable 05/02/21 05:20 Plt Clumps, EDTA Not Reportable 05/02/21 05:20 Large Platelets Not Reportable 05/02/21 05:20 Giant Platelets Not Reportable 05/02/21 05:20 Platelet Satelliting Not Reportable 05/02/21 05:20 Plt Morphology Comment Not Reportable 05/02/21 05:20 RBC Morphology Normal 05/02/21 05:20 Dimorphic RBCs Not Reportable 05/02/21 05:20 Polychromasia Not Reportable 05/02/21 05:20 Hypochromasia Not Reportable 05/02/21 05:20 Poikilocytosis Not Reportable 05/02/21 05:20 Anisocytosis Not Reportable 05/02/21 05:20 Microcytosis Not Reportable 05/02/21 05:20 Macrocytosis Not Reportable 05/02/21 05:20 Spherocytes Not Reportable 05/02/21 05:20 Pappenheimer Bodies Not Reportable 05/02/21 05:20 Sickle Cells Not Reportable 05/02/21 05:20 Target Cells Not Reportable 05/02/21 05:20 Tear Drop Cells Not Reportable 05/02/21 05:20 Ovalocytes Not Reportable 05/02/21 05:20 Helmet Cells Not Reportable 05/02/21 05:20 Vargas-Gerton Bodies Not Reportable 05/02/21 05:20 [place] Rings Not Reportable 05/02/21 05:20 Lonnie Cells Not Reportable 05/02/21 05:20 Bite Cells Not Reportable 05/02/21 05:20 Crenated Cell Not Reportable 05/02/21 05:20 Elliptocytes Not Reportable 05/02/21 05:20 Acanthocytes (Spur) Not Reportable 05/02/21 05:20 Rouleaux Not Reportable 05/02/21 05:20 Hemoglobin C Crystals Not Reportable 05/02/21 05:20 Schistocytes Not Reportable 05/02/21 05:20 Malaria parasites Not Reportable 05/02/21 05:20 Yury Bodies Not Reportable 05/02/21 05:20 Hem Pathologist Commnt No 05/02/21 05:20 PT 13.8 Sec. (12.2-14.9) 04/28/21 12:51 INR 0.96 (0.87-1.13) 04/28/21 12:51 APTT 27.0 Sec. (24.2-36.6) 04/28/21 12:51 D-Dimer 397.36 ng/mlDDU (0-234) H 05/05/21 06:00 ABG pH 7.404 (7.320-7.450) 04/30/21 11:40 POC ABG pCO2 40.8 mmHg (32.0-48.0) 04/30/21 11:40 ABG pCO2 36.2 mm Hg 04/18/21 Unknown POC ABG pO2 71.9 mmHg (83-108) L 04/30/21 11:40 ABG pO2 134.6 mm Hg (80.0-90.0) H 04/18/21 Unknown POC ABG HCO3 24.9 04/30/21 11:40 ABG HCO3 21.0 mmol/L (20.0-26.0) 04/18/21 Unknown ABG O2 Saturation 94.4 (0-100) 04/30/21 11:40 ABG O2 Content 22.0 (0.0-44) 04/18/21 Unknown POC ABG Base Excess 0.2 04/30/21 11:40 ABG Base Excess -3.3 mmol/L (-2.0-3.0) L 04/18/21 Unknown ABG Hemoglobin 14.6 (12.0-17.5) 04/30/21 11:40 ABG Oxyhemoglobin 93.6 (94-98) L 04/30/21 11:40 ABG Carboxyhemoglobin 0.7 % (0.0-5.0) 04/18/21 Unknown ABG Methemoglobin 0.3 (0.0-1.5) 04/30/21 11:40 ABG Sodium 132.7 mmol/L (136.0-145.0) L 04/30/21 11:40 ABG Potassium 4.4 mmol/L (3.40-4.50) 04/30/21 11:40 ABG Chloride 97.0 mmol/L (98-107) L 04/30/21 11:40 ABG Glucose 191 mg/dL (65-95) H 04/30/21 11:40 Oxyhemoglobin 97.2 % (95.0-99.0) 04/18/21 Unknown Carboxyhemoglobin 0.5 (0.5-1.5) 04/30/21 11:40 FiO2 100 % 04/18/21 Unknown FiO2 % 100 04/30/21 11:40 Sodium 138 mmol/L (137-145) 05/05/21 06:05 Potassium 5.2 mmol/L (3.6-5.0) H 05/05/21 06:05 Chloride 95.5 mmol/L (98-107) L 05/05/21 06:05 Carbon Dioxide 28 mmol/L (22-30) 05/05/21 06:05 Anion Gap 20 mmol/L 05/05/21 06:05 BUN 17 mg/dL (9-20) 05/05/21 06:05 Creatinine 0.5 mg/dL (0.8-1.3) L 05/05/21 06:05 Estimated GFR > 60 ml/min 05/05/21 06:05 BUN/Creatinine Ratio 34 % 05/05/21 06:05 Glucose 222 mg/dL (75-100) H 05/05/21 06:05 POC Glucose 174 mg/dL (70-105) H 05/05/21 11:00 Lactic Acid 1.10 mmol/L (0.7-2.0) 04/16/21 21:18 Calcium 8.9 mg/dL (8.4-10.2) 05/05/21 06:05 Phosphorus 4.40 mg/dL (2.5-4.5) 05/01/21 18:45 Magnesium 2.10 mg/dL (1.7-2.3) 05/01/21 18:45 Ferritin 645.8 ng/mL (30.0-300.0) H 05/05/21 06:05 Total Bilirubin 1.10 mg/dL (0.1-1.2) 05/05/21 06:05 AST 17 units/L (5-40) 05/05/21 06:05 ALT 53 units/L (7-56) 05/05/21 06:05 Alkaline Phosphatase 102 units/L (35-129) 05/05/21 06:05 Lactate Dehydrogenase 656 units/L (91-180) H 05/05/21 06:05 C-Reactive Protein 0.00 mg/dL (0.00-1.30) 05/05/21 06:05 NT-Pro-B Natriuret Pep 79.47 pg/mL (0-900) 04/17/21 16:40 Total Protein 5.8 g/dL (6.3-8.2) L 05/05/21 06:05 Albumin 3.5 g/dL (3.9-5) L 05/05/21 06:05 Albumin/Globulin Ratio 1.5 % 05/05/21 06:05 Procalcitonin 0.15 ng/mL (<0.15) 04/17/21 16:40 Arterial Blood Glucose 191 mg/dL (65-95) H 04/30/21 11:40 Arterial Blood Ionized Calcium 4.8 mg/dL (4.6-5.3) 04/30/21 11:40 Coronavirus (PCR) Positive (Negative) A 04/20/21 Unknown Martin/IV: Voiding Method Urinal Active Medications - Current Medications Current Medications: Generic Name Dose Route Start Last Admin Trade Name Freq PRN Reason Stop Dose Admin Acetaminophen 650 mg 04/17/21 01:45 04/28/21 13:17 Acetaminophen 325 Mg Tab PO 650 mg Q4H PRN Administration Pain MILD(1-3)/Fever >100.5/ALEXANDER Albuterol 2.5 mg 04/17/21 01:45 05/03/21 07:35 Albuterol 2.5 Mg/3 Ml Nebu IH 2.5 mg Q4HRT PRN Administration Shortness Of Breath Alprazolam 0.25 mg 04/17/21 22:00 05/04/21 21:23 Alprazolam 0.25 Mg Tab PO 0.25 mg QHS DEIRDRE Administration Apixaban 5 mg 04/28/21 22:00 05/05/21 10:41 Apixaban 5 Mg Tab PO 5 mg Q12HR DEIRDRE Administration Protocol Ascorbic Acid 1,000 mg 04/17/21 02:00 05/05/21 10:41 Ascorbic Acid 500 Mg Tab PO 1,000 mg Q12HR DEIRDRE Administration Benzonatate 100 mg 04/17/21 06:00 05/05/21 05:25 Benzonatate 100 Mg Cap PO 100 mg Q8HR DEIRDRE Administration Budesonide 0.5 mg 04/29/21 20:00 05/05/21 08:52 Budesonide 0.5 Mg/2 Ml Nebu IH 0.5 mg Q12HRT DEIRDRE Administration Buspirone HCl 10 mg 04/30/21 12:00 05/05/21 10:41 Buspirone 10 Mg Tab PO 10 mg BID DEIRDRE Administration Cyclobenzaprine HCl 10 mg 04/17/21 01:49 04/30/21 21:17 Cyclobenzaprine 10 Mg Tab PO 10 mg TID PRN Administration Spasms Famotidine 20 mg 04/25/21 10:00 05/05/21 10:41 Famotidine 20 Mg Tab PO 20 mg BID DEIRDRE Administration Gabapentin 300 mg 04/17/21 08:00 05/05/21 10:41 Gabapentin 300 Mg Cap PO 300 mg TID DEIRDRE Administration Hydralazine HCl 10 mg 04/17/21 02:00 04/22/21 19:16 Hydralazine 20 Mg/1 Ml Inj IV 10 mg Q6H PRN Administration Blood Pressure Hydromorphone HCl 0.5 mg 04/17/21 01:45 04/29/21 04:48 Hydromorphone 1 Mg/1 Ml Inj IV 0.5 mg Q3H PRN Administration Pain , Severe (7-10) Lorazepam 0.5 mg 04/21/21 08:44 04/29/21 02:39 Lorazepam 2 Mg/Ml Vial IV 0.5 mg Q4H PRN Administration Anxiety Methylprednisolone Sodium Succinate 60 mg 05/01/21 12:00 05/05/21 05:25 Methylprednisolone Sod Succinate 125 Mg/2 Ml Inj IV 60 mg Q6HR DEIRDRE Administration Morphine Sulfate 2 mg 04/17/21 01:45 04/28/21 18:07 Morphine 2 Mg/1 Ml Inj IV 2 mg Q4H PRN Administration Pain, Moderate (4-6) Ondansetron HCl 4 mg 04/17/21 01:45 04/18/21 07:48 Ondansetron 4 Mg/2 Ml Inj IV 4 mg Q8H PRN Administration Nausea And Vomiting Sodium Chloride 10 ml 04/17/21 10:00 05/05/21 10:41 Sodium Chloride 0.9% 10 Ml Flush Syringe IV 10 ml BID DEIRDRE Administration Sodium Chloride 10 ml 04/17/21 01:45 Sodium Chloride 0.9% 10 Ml Flush Syringe IV PRN PRN LINE FLUSH Zinc Sulfate 220 mg 04/17/21 22:00 05/05/21 10:41 Zinc Sulfate 220 Mg Cap PO 220 mg BID DEIRDRE Administration Nutrition/Malnutrition Assess - Dietary Evaluation Nutrition/Malnutrition Findings: Nutrition Notes Start: 04/24/21 17:14 Freq: Status: Active Protocol: Document 04/24/21 17:14 TEDDY (Rec: 04/24/21 17:41 TEDDY [id number]) Nutrition Notes Need for Assessment generated from: LOS Initial or Follow up Assessment Current Diagnosis Coronary Artery Disease, Hypertension,Respiratory Failure Other Pertinent Diagnosis COVID-19, Pneumonia, AHRF, ARDS, ANKUSH. Current Diet Cardiac Diet (since B 04/17). Labs/Tests 04/22: Cl 108.6, CO2 21, BUN 28, Crea 0.6, Glu 115. Pertinent Medications 04/24: Vit C, ZnSO4, others nutritionally unremarkable. Height 5 ft 8 in Weight 161 kg [place] Body Weight (kg) 70.00 BMI 53.9 Intake Prior to Admission Good Weight change and time frame None reported at admission. Weight Status Morbidly Obese Subjective/Other Information RD consult for LOS assessment. Pt's PO intake of meals is Good (75-100%), according to ADL notes. Percent of energy/protein needs met: Prescribed Cardiac Diet provides for energy/protein needs (2,230 Kcal/85 g) during LOS. Burn Absent Trauma Absent GI Symptoms None Food Allergy No Skin Integrity/Comment Clear, warm, dry. Current % PO Good (75-100%) Minimum of two criteria No Is patient on ventilator? No Is Patient Ambulatory and/or Out of Bed Yes REE-(Counselor-St. Jeor-ambulatory/OOB) [ 3164.850 [id number]] Kcal/Kg value to use for calculation 9 Approximate Energy Requirements Using 1449 kcal/Kg Calculation Used for Recommendations Kcal/kg Additional Notes Protein: 0.8-1 g/Kg; 93-116 g/ day. Fluids: 1 ml/Kcal, or as per MD. Nutrition Intervention Change Diet Order: Continue Cardiac Diet. Revisit per MD consult or patient Sign Off request: Additional Comments Continue monitoring food tolerance, %PO intake of meals , and BM.
--- NOTE | 2021-05-05 14:05 | Progress Note ---
Assessment and Plan 51-year-old male with history of morbid obesity, hypertension, migraine, coronary osteoarthritis and GERD and headache was brought to the emergency room because of progressive shortness of breath. Patient has history of Covid and he was admitted last week to the hospital. He states he was sent home with oxygen however he is needed 4 L of oxygen and his shortness of breath has gotten worse when he walks his oxygen drops down to the mid 80s. He has frequent cough. Patient states he has some body aches he denies having nausea. Patient stated that he came into contact with an individual who had tested positive for COVID-19 viral infection, but he admits that he has been fully vaccinated against COVID-19 viral infection.Patient smoking, alcohol or drug history not known at this time. In the emergency room patient CT scan of the chest showed scattered groundglass opacities at the bilateral lung suggesting atypical infectious process. Patient awake. Presently on BIPAP 09/04 Rate 30, FIO2 100% and O2 saturation running 94%. Patient says breathing little better than yesterday. Patient afebrile. No leukocytosis. Patients blood pressure 152/87, pulse 59, Respirations 30. Patient is on awake and sitting up in chair. On Vapotherm with FIO2 70%.. BIPAP stand by in the room. O2 saturation 95%. Patient says breathing better. Patient afebrile. Has leukocytosis . Patients blood pressure 134/71, pulse 90, Respirations 24. Patients D dimer coming down 397.36 Patient is on Apixaban. Chest xray done 04/20/2021 reported Stable appearance of extensive bilateral pulmonary opacities. Chest xray done 04/22/2021 reported Stable appearance of severe bilateral pulmonary opacities. Venous doppler studies of both legs reported No sonographic evidence for DVT in either lower extremity. Chest xray done 04/30/2021 reported Bilateral parenchymal opacities appear similar to prior. No pneumothorax. Chest xray done 05/05/21 reported Mild improvement in the bilateral lung opacities. No new acute process. Patients chest xray showing improvement and O2 requirements coming down. Patient ABGs ABG on FiO2 100% ABG pH 7.404 (7.320-7.450) 04/30/21 11:40 POC ABG pCO2 40.8 mmHg (32.0-48.0) 04/30/21 11:40 ABG pCO2 36.2 mm Hg 04/18/21 Unknown POC ABG pO2 71.9 mmHg (83-108) L 04/30/21 11:40 ABG pO2 134.6 mm Hg (80.0-90.0) H 04/18/21 Unknown POC ABG HCO3 24.9 04/30/21 11:40 ABG O2 Saturation 94.4 (0-100) 04/30/21 11:40 Patient is on I/V solumedrolApixaban Famotidine, Albuterol/budesonide aerosol treatments, benzonatate. Finished course of Remdesivir. Because of increased shortness of breath and bronchospasm added IV solumedrol. I spent a critical care time of 35 minutes reviewing the chart, examining the patient, talking to the nursing staff and respiratory therapy, reviewing chest xray and lab results, and workup of plan of treament in this critically ill COVID pneumonia patient with acute respiratory failure. - Patient Problems (1) Acute respiratory failure due to COVID-19 Current Visit: Yes Status: Acute Plan to address problem: Vapotherm FIO2 70%. BIPAP 28/12, rate 30, FIO2 80% stand by in the room Started on I/V solumedrol. Finished course of Remdesivir. Continue Apixaban. Continue Famotidine. Albuterol/budesonide aerosol treatments. (2) GERD (gastroesophageal reflux disease) Current Visit: Yes Status: Acute Plan to address problem: Patient is on Famotidine. (3) Hypertension Current Visit: Yes Status: Acute Plan to address problem: Management as per primary care. (4) Coronavirus infection Current Visit: Yes Status: Acute Plan to address problem: Patient is finished course of Remdesivir and decadron. Started on I/V solumedrol because of increased shortness of breath and Bronchospasm. Management as per infectious diseases. Patient is on Apixaban. Subjective Date of service: 05/05/21 Principal diagnosis: AHRF; ARDS; ANKUSH; COVID-19 infxn; Pneumonia; Morbid Obesity Interval history: 51-year-old male with history of morbid obesity, hypertension, migraine, coronary osteoarthritis and GERD and headache was brought to the emergency room because of progressive shortness of breath. Patient has history of Covid and he was admitted last week to the hospital. He states he was sent home with oxygen however he is needed 4 L of oxygen and his shortness of breath has gotten worse when he walks his oxygen drops down to the mid 80s. He has frequent cough. Patient states he has some body aches he denies having nausea. Patient stated that he came into contact with an individual who had tested positive for COVID-19 viral infection, but he admits that he has been fully vaccinated against COVID-19 viral infection.Patient smoking, alcohol or drug history not known at this time. In the emergency room patient CT scan of the chest showed scattered groundglass opacities at the bilateral lung suggesting atypical infectious process. Patient is on awake and sitting up in chair. On Vapotherm with FIO2 70%.. BIPAP stand by in the room. O2 saturation 95%. Patient says breathing better. Patient afebrile. Has leukocytosis . Patients blood pressure 134/71, pulse 90, Respirations 24. Patients D dimer coming down 397.36 Patient is on Apixaban. Chest xray done 04/20/2021 reported Stable appearance of extensive bilateral pulmonary opacities. Chest xray done 04/22/2021 reported Stable appearance of severe bilateral pulmonary opacities. Venous doppler studies of both legs reported No sonographic evidence for DVT in either lower extremity. Chest xray done 04/30/2021 reported Bilateral parenchymal opacities appear similar to prior. No pneumothorax. Chest xray done 05/05/21 reported Mild improvement in the bilateral lung opacities. No new acute process. Patients chest xray showing improvement and O2 requirements coming down. Patient ABGs ABG on FiO2 100% ABG pH 7.404 (7.320-7.450) 04/30/21 11:40 POC ABG pCO2 40.8 mmHg (32.0-48.0) 04/30/21 11:40 ABG pCO2 36.2 mm Hg 04/18/21 Unknown POC ABG pO2 71.9 mmHg (83-108) L 04/30/21 11:40 ABG pO2 134.6 mm Hg (80.0-90.0) H 04/18/21 Unknown POC ABG HCO3 24.9 04/30/21 11:40 ABG O2 Saturation 94.4 (0-100) 04/30/21 11:40 Patient is on I/V solumedrol, Apixaban Famotidine, Albuterol/budesonide aerosol treatments, benzonatate. Finished course of Remdesivir. Objective Vital Signs - 12hr 05/05/21 05/05/21 05/05/21 02:31 03:01 03:31 Temperature Pulse Rate 55 L 61 74 Pulse Rate [ From Monitor] Pulse Rate [ Posterior] Respiratory 15 21 18 Rate Respiratory Rate [Posterior ] Blood Pressure 107/62 126/75 126/75 O2 Sat by Pulse 95 93 98 Oximetry 05/05/21 05/05/21 05/05/21 03:48 03:59 04:00 Temperature 98.4 F Pulse Rate 56 L 56 L Pulse Rate [ 65 From Monitor] Pulse Rate [ Posterior] Respiratory 31 H 17 Rate Respiratory Rate [Posterior ] Blood Pressure 126/75 119/59 O2 Sat by Pulse 97 95 Oximetry 05/05/21 05/05/21 05/05/21 04:31 04:38 05:00 Temperature Pulse Rate 59 L 56 L 57 L Pulse Rate [ From Monitor] Pulse Rate [ Posterior] Respiratory 14 16 Rate Respiratory Rate [Posterior ] Blood Pressure 119/59 117/58 O2 Sat by Pulse 98 95 Oximetry 05/05/21 05/05/21 05/05/21 05:30 06:02 06:30 Temperature Pulse Rate 64 81 55 L Pulse Rate [ From Monitor] Pulse Rate [ Posterior] Respiratory 16 22 14 Rate Respiratory Rate [Posterior ] Blood Pressure 117/58 107/62 133/78 O2 Sat by Pulse 97 98 98 Oximetry 05/05/21 05/05/21 05/05/21 07:00 07:30 07:40 Temperature 98.2 F Pulse Rate 57 L 60 Pulse Rate [ From Monitor] Pulse Rate [ Posterior] Respiratory 15 17 Rate Respiratory Rate [Posterior ] Blood Pressure 134/65 134/65 O2 Sat by Pulse 97 97 Oximetry 05/05/21 05/05/21 05/05/21 08:00 08:30 08:53 Temperature Pulse Rate 58 L 92 H Pulse Rate [ 78 From Monitor] Pulse Rate [ 86 Posterior] Respiratory 16 23 Rate Respiratory 19 Rate [Posterior ] Blood Pressure 125/64 125/64 O2 Sat by Pulse 97 99 Oximetry 05/05/21 05/05/21 05/05/21 09:00 09:30 10:00 Temperature Pulse Rate 69 61 Pulse Rate [ From Monitor] Pulse Rate [ Posterior] Respiratory 20 20 21 Rate Respiratory Rate [Posterior ] Blood Pressure 146/91 146/91 123/81 O2 Sat by Pulse 86 94 Oximetry 05/05/21 05/05/21 05/05/21 10:30 11:00 12:06 Temperature 98.9 F Pulse Rate 95 H 67 Pulse Rate [ From Monitor] Pulse Rate [ Posterior] Respiratory 28 H 22 Rate Respiratory Rate [Posterior ] Blood Pressure 123/81 126/75 O2 Sat by Pulse 93 96 Oximetry Constitutional: alert, appears uncomfortable, other (middle aged morbidly obese male with mildly increased respiratory effort at rest) Eyes: non-icteric ENT: oropharynx moist Neck: supple, no lymphadenopathy, no JVD, other (large circumference) Effort: mildly labored Ascultation: Bilateral: diminished breath sounds, wheezes, rhonchi Percussion: Bilateral: not dull Cardiovascular: irregular rhythm, other (Patient tachycardic rate varies from 120 to 140.) Gastrointestinal: normoactive bowel sounds, soft, non-tender, non-distended (protuberant) Integumentary: normal Extremities: no cyanosis, pink and warm, pulses normal, no ischemia or petechiae, edema (trace) Neurologic: normal mental status, non-focal exam, pupils equal and round, CN II- XII normal Psychiatric: mood appropriate, affect normal CBC and BMP: 05/05/21 06:05 05/05/21 06:05 ABG, PT/INR, D-dimer: ABG ABG pH 7.404 (7.320-7.450) 04/30/21 11:40 POC ABG pCO2 40.8 mmHg (32.0-48.0) 04/30/21 11:40 ABG pCO2 36.2 mm Hg 04/18/21 Unknown POC ABG pO2 71.9 mmHg (83-108) L 04/30/21 11:40 ABG pO2 134.6 mm Hg (80.0-90.0) H 04/18/21 Unknown POC ABG HCO3 24.9 04/30/21 11:40 ABG O2 Saturation 94.4 (0-100) 04/30/21 11:40 PT/INR, D-dimer PT 13.8 Sec. (12.2-14.9) 04/28/21 12:51 INR 0.96 (0.87-1.13) 01/10/22 12:51 D-Dimer 397.36 ng/mlDDU (0-234) H 05/05/21 06:00 Abnormal lab findings: Abnormal Labs 04/16/21 04/16/21 04/17/21 21:18 21:18 16:40 WBC 3.5 L RDW Plt Count 85 L Lymph % (Auto) Brown % (Auto) Lymph # (Auto) 0.7 L Brown # (Auto) Seg Neutrophils % 74.2 H Seg Neuts % (Manual) Lymphocytes % (Manual) Seg Neutrophils # Seg Neutrophils # Man Lymphocytes # (Manual) Monocytes # (Manual) D-Dimer ABG pH POC ABG pO2 ABG pO2 ABG HCO3 ABG O2 Saturation ABG Base Excess ABG Hemoglobin ABG Oxyhemoglobin ABG Sodium ABG Chloride ABG Glucose Oxyhemoglobin Carboxyhemoglobin Sodium 132 L Potassium Chloride 93.8 L Carbon Dioxide BUN Creatinine 0.7 L Glucose 125 H POC Glucose Calcium 8.2 L Ferritin 1918.0 H AST 83 H ALT 63 H Lactate Dehydrogenase C-Reactive Protein Total Protein Albumin 3.7 L Arterial Blood Glucose Arterial Blood Ionized Calcium Coronavirus (PCR) 04/17/21 04/17/21 04/17/21 16:40 16:40 16:40 WBC RDW Plt Count Lymph % (Auto) Brown % (Auto) Lymph # (Auto) Brown # (Auto) Seg Neutrophils % Seg Neuts % (Manual) Lymphocytes % (Manual) Seg Neutrophils # Seg Neutrophils # Man Lymphocytes # (Manual) Monocytes # (Manual) D-Dimer 306.45 H ABG pH POC ABG pO2 ABG pO2 ABG HCO3 ABG O2 Saturation ABG Base Excess ABG Hemoglobin ABG Oxyhemoglobin ABG Sodium ABG Chloride ABG Glucose Oxyhemoglobin Carboxyhemoglobin Sodium 135 L Potassium Chloride 96.2 L Carbon Dioxide BUN Creatinine Glucose 155 H POC Glucose Calcium Ferritin AST 72 H ALT 68 H Lactate Dehydrogenase 505 H C-Reactive Protein 16.30 H Total Protein Albumin 3.5 L Arterial Blood Glucose Arterial Blood Ionized Calcium Coronavirus (PCR) 04/17/21 04/17/21 04/18/21 18:45 Unknown 03:53 WBC RDW 13.1 L Plt Count 115 L Lymph % (Auto) 13.0 L Brown % (Auto) 8.7 H Lymph # (Auto) 1.0 L Brown # (Auto) Seg Neutrophils % 78.2 H Seg Neuts % (Manual) Lymphocytes % (Manual) Seg Neutrophils # Seg Neutrophils # Man Lymphocytes # (Manual) Monocytes # (Manual) D-Dimer ABG pH POC ABG pO2 ABG pO2 56.8 L ABG HCO3 27.4 H ABG O2 Saturation 90.8 L ABG Base Excess 3.1 H ABG Hemoglobin 11.3 L 13.7 L ABG Oxyhemoglobin ABG Sodium ABG Chloride ABG Glucose Oxyhemoglobin 89.4 L Carboxyhemoglobin Sodium Potassium Chloride Carbon Dioxide BUN Creatinine Glucose POC Glucose Calcium Ferritin AST ALT Lactate Dehydrogenase C-Reactive Protein Total Protein Albumin Arterial Blood Glucose Arterial Blood Ionized Calcium Coronavirus (PCR) 04/18/21 04/18/21 04/18/21 03:53 08:02 Unknown WBC RDW Plt Count Lymph % (Auto) Brown % (Auto) Lymph # (Auto) Brown # (Auto) Seg Neutrophils % Seg Neuts % (Manual) Lymphocytes % (Manual) Seg Neutrophils # Seg Neutrophils # Man Lymphocytes # (Manual) Monocytes # (Manual) D-Dimer ABG pH POC ABG pO2 ABG pO2 64.3 L 134.6 H ABG HCO3 26.9 H ABG O2 Saturation 93.6 L ABG Base Excess -3.3 L ABG Hemoglobin 11.9 L ABG Oxyhemoglobin ABG Sodium ABG Chloride ABG Glucose Oxyhemoglobin 92.3 L Carboxyhemoglobin Sodium 135 L Potassium Chloride 95.9 L Carbon Dioxide BUN Creatinine 0.7 L Glucose 149 H POC Glucose Calcium Ferritin AST 62 H ALT 59 H Lactate Dehydrogenase C-Reactive Protein Total Protein Albumin 3.3 L Arterial Blood Glucose Arterial Blood Ionized Calcium Coronavirus (PCR) 04/19/21 04/19/21 04/19/21 01:37 07:28 08:44 WBC RDW Plt Count Lymph % (Auto) Brown % (Auto) Lymph # (Auto) Brown # (Auto) Seg Neutrophils % Seg Neuts % (Manual) Lymphocytes % (Manual) Seg Neutrophils # Seg Neutrophils # Man Lymphocytes # (Manual) Monocytes # (Manual) D-Dimer ABG pH POC ABG pO2 56.3 L ABG pO2 ABG HCO3 ABG O2 Saturation ABG Base Excess ABG Hemoglobin ABG Oxyhemoglobin 88.3 L ABG Sodium 132.8 L ABG Chloride 96.0 L ABG Glucose 145 H Oxyhemoglobin Carboxyhemoglobin 0.4 L Sodium Potassium Chloride 97.4 L Carbon Dioxide BUN Creatinine 0.7 L Glucose 130 H POC Glucose 135 H Calcium Ferritin AST 53 H ALT Lactate Dehydrogenase C-Reactive Protein Total Protein Albumin 3.6 L Arterial Blood Glucose 145 H Arterial Blood Ionized Calcium 4.5 L Coronavirus (PCR) 04/19/21 04/19/21 04/19/21 08:44 11:30 16:53 WBC RDW 12.8 L Plt Count Lymph % (Auto) Brown % (Auto) Lymph # (Auto) Brown # (Auto) Seg Neutrophils % Seg Neuts % (Manual) Lymphocytes % (Manual) Seg Neutrophils # Seg Neutrophils # Man Lymphocytes # (Manual) Monocytes # (Manual) D-Dimer ABG pH POC ABG pO2 ABG pO2 ABG HCO3 ABG O2 Saturation ABG Base Excess ABG Hemoglobin ABG Oxyhemoglobin ABG Sodium ABG Chloride ABG Glucose Oxyhemoglobin Carboxyhemoglobin Sodium Potassium Chloride Carbon Dioxide BUN Creatinine Glucose POC Glucose 129 H 146 H Calcium Ferritin AST ALT Lactate Dehydrogenase C-Reactive Protein Total Protein Albumin Arterial Blood Glucose Arterial Blood Ionized Calcium Coronavirus (PCR) 04/19/21 04/19/21 04/20/21 17:21 21:07 07:18 WBC RDW Plt Count Lymph % (Auto) Brown % (Auto) Lymph # (Auto) Brown # (Auto) Seg Neutrophils % Seg Neuts % (Manual) Lymphocytes % (Manual) Seg Neutrophils # Seg Neutrophils # Man Lymphocytes # (Manual) Monocytes # (Manual) D-Dimer ABG pH 7.480 H POC ABG pO2 108.6 H ABG pO2 ABG HCO3 ABG O2 Saturation ABG Base Excess ABG Hemoglobin ABG Oxyhemoglobin ABG Sodium 134.1 L ABG Chloride 97.0 L ABG Glucose 167 H Oxyhemoglobin Carboxyhemoglobin 0.4 L Sodium Potassium Chloride Carbon Dioxide BUN Creatinine Glucose POC Glucose 152 H 128 H Calcium Ferritin AST ALT Lactate Dehydrogenase C-Reactive Protein Total Protein Albumin Arterial Blood Glucose 167 H Arterial Blood Ionized Calcium Coronavirus (PCR) 04/20/21 04/20/21 04/20/21 11:08 11:08 11:08 WBC RDW Plt Count Lymph % (Auto) Brown % (Auto) Lymph # (Auto) Brown # (Auto) Seg Neutrophils % Seg Neuts % (Manual) Lymphocytes % (Manual) Seg Neutrophils # Seg Neutrophils # Man Lymphocytes # (Manual) Monocytes # (Manual) D-Dimer 1082.55 H ABG pH POC ABG pO2 ABG pO2 ABG HCO3 ABG O2 Saturation ABG Base Excess ABG Hemoglobin ABG Oxyhemoglobin ABG Sodium ABG Chloride ABG Glucose Oxyhemoglobin Carboxyhemoglobin Sodium Potassium Chloride Carbon Dioxide BUN 26 H Creatinine Glucose 121 H POC Glucose Calcium Ferritin 1389.0 H AST 46 H ALT Lactate Dehydrogenase 647 H C-Reactive Protein 5.50 H Total Protein Albumin 3.5 L Arterial Blood Glucose Arterial Blood Ionized Calcium Coronavirus (PCR) 04/20/21 04/20/21 04/20/21 11:08 16:04 21:10 WBC RDW 12.9 L Plt Count Lymph % (Auto) Brown % (Auto) 14.0 H Lymph # (Auto) Brown # (Auto) 0.9 H Seg Neutrophils % Seg Neuts % (Manual) Lymphocytes % (Manual) Seg Neutrophils # Seg Neutrophils # Man Lymphocytes # (Manual) Monocytes # (Manual) D-Dimer ABG pH POC ABG pO2 ABG pO2 ABG HCO3 ABG O2 Saturation ABG Base Excess ABG Hemoglobin ABG Oxyhemoglobin ABG Sodium ABG Chloride ABG Glucose Oxyhemoglobin Carboxyhemoglobin Sodium Potassium Chloride Carbon Dioxide BUN Creatinine Glucose POC Glucose 159 H 149 H Calcium Ferritin AST ALT Lactate Dehydrogenase C-Reactive Protein Total Protein Albumin Arterial Blood Glucose Arterial Blood Ionized Calcium Coronavirus (PCR) 04/20/21 04/21/21 04/21/21 Unknown 11:34 11:34 WBC RDW 13.1 L Plt Count Lymph % (Auto) Brown % (Auto) 13.0 H Lymph # (Auto) Brown # (Auto) 1.2 H Seg Neutrophils % 70.4 H Seg Neuts % (Manual) Lymphocytes % (Manual) Seg Neutrophils # Seg Neutrophils # Man Lymphocytes # (Manual) Monocytes # (Manual) D-Dimer ABG pH POC ABG pO2 ABG pO2 ABG HCO3 ABG O2 Saturation ABG Base Excess ABG Hemoglobin ABG Oxyhemoglobin ABG Sodium ABG Chloride ABG Glucose Oxyhemoglobin Carboxyhemoglobin Sodium Potassium Chloride Carbon Dioxide BUN 27 H Creatinine Glucose 107 H POC Glucose Calcium Ferritin AST 46 H ALT Lactate Dehydrogenase C-Reactive Protein Total Protein Albumin 3.4 L Arterial Blood Glucose Arterial Blood Ionized Calcium Coronavirus (PCR) Positive A 04/21/21 04/21/21 04/22/21 17:00 22:05 04:49 WBC RDW Plt Count Lymph % (Auto) 12.2 L Brown % (Auto) 10.7 H Lymph # (Auto) Brown # (Auto) 1.1 H Seg Neutrophils % 76.6 H Seg Neuts % (Manual) Lymphocytes % (Manual) Seg Neutrophils # Seg Neutrophils # Man Lymphocytes # (Manual) Monocytes # (Manual) D-Dimer ABG pH POC ABG pO2 ABG pO2 ABG HCO3 ABG O2 Saturation ABG Base Excess ABG Hemoglobin ABG Oxyhemoglobin ABG Sodium ABG Chloride ABG Glucose Oxyhemoglobin Carboxyhemoglobin Sodium Potassium Chloride Carbon Dioxide BUN Creatinine Glucose POC Glucose 138 H 133 H Calcium Ferritin AST ALT Lactate Dehydrogenase C-Reactive Protein Total Protein Albumin Arterial Blood Glucose Arterial Blood Ionized Calcium Coronavirus (PCR) 04/22/21 04/22/21 04/22/21 04:49 04:49 04:49 WBC RDW Plt Count Lymph % (Auto) Brown % (Auto) Lymph # (Auto) Brown # (Auto) Seg Neutrophils % Seg Neuts % (Manual) Lymphocytes % (Manual) Seg Neutrophils # Seg Neutrophils # Man Lymphocytes # (Manual) Monocytes # (Manual) D-Dimer 1880.44 H ABG pH POC ABG pO2 ABG pO2 ABG HCO3 ABG O2 Saturation ABG Base Excess ABG Hemoglobin ABG Oxyhemoglobin ABG Sodium ABG Chloride ABG Glucose Oxyhemoglobin Carboxyhemoglobin Sodium Potassium Chloride 108.6 H Carbon Dioxide 21 L D BUN 28 H Creatinine 0.6 L Glucose 115 H POC Glucose Calcium Ferritin 1185.0 H AST 50 H ALT Lactate Dehydrogenase 759 H C-Reactive Protein 1.60 H Total Protein Albumin 3.1 L Arterial Blood Glucose Arterial Blood Ionized Calcium Coronavirus (PCR) 04/22/21 04/22/21 04/23/21 16:17 22:08 21:14 WBC RDW Plt Count Lymph % (Auto) Brown % (Auto) Lymph # (Auto) Brown # (Auto) Seg Neutrophils % Seg Neuts % (Manual) Lymphocytes % (Manual) Seg Neutrophils # Seg Neutrophils # Man Lymphocytes # (Manual) Monocytes # (Manual) D-Dimer ABG pH POC ABG pO2 ABG pO2 ABG HCO3 ABG O2 Saturation ABG Base Excess ABG Hemoglobin ABG Oxyhemoglobin ABG Sodium ABG Chloride ABG Glucose Oxyhemoglobin Carboxyhemoglobin Sodium Potassium Chloride Carbon Dioxide BUN Creatinine Glucose POC Glucose 158 H 134 H 159 H Calcium Ferritin AST ALT Lactate Dehydrogenase C-Reactive Protein Total Protein Albumin Arterial Blood Glucose Arterial Blood Ionized Calcium Coronavirus (PCR) 04/24/21 04/25/21 04/25/21 21:20 11:33 16:23 WBC RDW Plt Count Lymph % (Auto) Brown % (Auto) Lymph # (Auto) Brown # (Auto) Seg Neutrophils % Seg Neuts % (Manual) Lymphocytes % (Manual) Seg Neutrophils # Seg Neutrophils # Man Lymphocytes # (Manual) Monocytes # (Manual) D-Dimer ABG pH POC ABG pO2 ABG pO2 ABG HCO3 ABG O2 Saturation ABG Base Excess ABG Hemoglobin ABG Oxyhemoglobin ABG Sodium ABG Chloride ABG Glucose Oxyhemoglobin Carboxyhemoglobin Sodium Potassium Chloride Carbon Dioxide BUN Creatinine Glucose POC Glucose 161 H 126 H 176 H Calcium Ferritin AST ALT Lactate Dehydrogenase C-Reactive Protein Total Protein Albumin Arterial Blood Glucose Arterial Blood Ionized Calcium Coronavirus (PCR) 04/25/21 04/26/21 04/26/21 21:06 16:26 21:26 WBC RDW Plt Count Lymph % (Auto) Brown % (Auto) Lymph # (Auto) Brown # (Auto) Seg Neutrophils % Seg Neuts % (Manual) Lymphocytes % (Manual) Seg Neutrophils # Seg Neutrophils # Man Lymphocytes # (Manual) Monocytes # (Manual) D-Dimer ABG pH POC ABG pO2 ABG pO2 ABG HCO3 ABG O2 Saturation ABG Base Excess ABG Hemoglobin ABG Oxyhemoglobin ABG Sodium ABG Chloride ABG Glucose Oxyhemoglobin Carboxyhemoglobin Sodium Potassium Chloride Carbon Dioxide BUN Creatinine Glucose POC Glucose 214 H 119 H 114 H Calcium Ferritin AST ALT Lactate Dehydrogenase C-Reactive Protein Total Protein Albumin Arterial Blood Glucose Arterial Blood Ionized Calcium Coronavirus (PCR) 04/27/21 04/27/21 04/28/21 07:32 22:02 12:51 WBC 14.9 H RDW 12.8 L Plt Count Lymph % (Auto) 9.5 L Brown % (Auto) Lymph # (Auto) Brown # (Auto) 1.0 H Seg Neutrophils % 81.2 H Seg Neuts % (Manual) Lymphocytes % (Manual) Seg Neutrophils # 12.1 H Seg Neutrophils # Man Lymphocytes # (Manual) Monocytes # (Manual) D-Dimer ABG pH POC ABG pO2 ABG pO2 ABG HCO3 ABG O2 Saturation ABG Base Excess ABG Hemoglobin ABG Oxyhemoglobin ABG Sodium ABG Chloride ABG Glucose Oxyhemoglobin Carboxyhemoglobin Sodium Potassium Chloride Carbon Dioxide BUN Creatinine Glucose POC Glucose 109 H 127 H Calcium Ferritin AST ALT Lactate Dehydrogenase C-Reactive Protein Total Protein Albumin Arterial Blood Glucose Arterial Blood Ionized Calcium Coronavirus (PCR) 04/28/21 04/28/21 04/28/21 12:51 12:51 12:51 WBC RDW Plt Count Lymph % (Auto) Brown % (Auto) Lymph # (Auto) Brown # (Auto) Seg Neutrophils % Seg Neuts % (Manual) Lymphocytes % (Manual) Seg Neutrophils # Seg Neutrophils # Man Lymphocytes # (Manual) Monocytes # (Manual) D-Dimer 861.39 H ABG pH POC ABG pO2 ABG pO2 ABG HCO3 ABG O2 Saturation ABG Base Excess ABG Hemoglobin ABG Oxyhemoglobin ABG Sodium ABG Chloride ABG Glucose Oxyhemoglobin Carboxyhemoglobin Sodium 134 L Potassium Chloride 95.2 L Carbon Dioxide BUN Creatinine 0.6 L Glucose 121 H POC Glucose Calcium Ferritin AST ALT Lactate Dehydrogenase 769 H C-Reactive Protein Total Protein Albumin Arterial Blood Glucose Arterial Blood Ionized Calcium Coronavirus (PCR) 04/28/21 04/28/21 04/28/21 12:51 16:59 21:17 WBC RDW Plt Count Lymph % (Auto) Brown % (Auto) Lymph # (Auto) Brown # (Auto) Seg Neutrophils % Seg Neuts % (Manual) Lymphocytes % (Manual) Seg Neutrophils # Seg Neutrophils # Man Lymphocytes # (Manual) Monocytes # (Manual) D-Dimer ABG pH POC ABG pO2 ABG pO2 ABG HCO3 ABG O2 Saturation ABG Base Excess ABG Hemoglobin ABG Oxyhemoglobin ABG Sodium ABG Chloride ABG Glucose Oxyhemoglobin Carboxyhemoglobin Sodium Potassium Chloride Carbon Dioxide BUN Creatinine Glucose POC Glucose 124 H 146 H Calcium Ferritin 1009.0 H AST ALT Lactate Dehydrogenase C-Reactive Protein Total Protein Albumin Arterial Blood Glucose Arterial Blood Ionized Calcium Coronavirus (PCR) 04/29/21 04/30/21 04/30/21 21:28 04:59 04:59 WBC 30.4 H RDW Plt Count Lymph % (Auto) Brown % (Auto) Lymph # (Auto) Brown # (Auto) Seg Neutrophils % Seg Neuts % (Manual) 88.0 H Lymphocytes % (Manual) 0 L Seg Neutrophils # Seg Neutrophils # Man 26.8 H Lymphocytes # (Manual) 0.0 L Monocytes # (Manual) 2.1 H D-Dimer 592.16 H ABG pH POC ABG pO2 ABG pO2 ABG HCO3 ABG O2 Saturation ABG Base Excess ABG Hemoglobin ABG Oxyhemoglobin ABG Sodium ABG Chloride ABG Glucose Oxyhemoglobin Carboxyhemoglobin Sodium Potassium Chloride Carbon Dioxide BUN Creatinine Glucose POC Glucose 190 H Calcium Ferritin AST ALT Lactate Dehydrogenase C-Reactive Protein Total Protein Albumin Arterial Blood Glucose Arterial Blood Ionized Calcium Coronavirus (PCR) 04/30/21 04/30/21 04/30/21 04:59 04:59 07:32 WBC RDW Plt Count Lymph % (Auto) Brown % (Auto) Lymph # (Auto) Brown # (Auto) Seg Neutrophils % Seg Neuts % (Manual) Lymphocytes % (Manual) Seg Neutrophils # Seg Neutrophils # Man Lymphocytes # (Manual) Monocytes # (Manual) D-Dimer ABG pH POC ABG pO2 ABG pO2 ABG HCO3 ABG O2 Saturation ABG Base Excess ABG Hemoglobin ABG Oxyhemoglobin ABG Sodium ABG Chloride ABG Glucose Oxyhemoglobin Carboxyhemoglobin Sodium Potassium Chloride 97.4 L Carbon Dioxide BUN Creatinine 0.6 L Glucose 180 H POC Glucose 161 H Calcium Ferritin 789.6 H AST ALT 68 H Lactate Dehydrogenase 947 H C-Reactive Protein Total Protein Albumin 3.8 L Arterial Blood Glucose Arterial Blood Ionized Calcium Coronavirus (PCR) 04/30/21 04/30/21 04/30/21 11:02 11:40 16:24 WBC RDW Plt Count Lymph % (Auto) Brown % (Auto) Lymph # (Auto) Brown # (Auto) Seg Neutrophils % Seg Neuts % (Manual) Lymphocytes % (Manual) Seg Neutrophils # Seg Neutrophils # Man Lymphocytes # (Manual) Monocytes # (Manual) D-Dimer ABG pH POC ABG pO2 71.9 L ABG pO2 ABG HCO3 ABG O2 Saturation ABG Base Excess ABG Hemoglobin ABG Oxyhemoglobin 93.6 L ABG Sodium 132.7 L ABG Chloride 97.0 L ABG Glucose 191 H Oxyhemoglobin Carboxyhemoglobin Sodium Potassium Chloride Carbon Dioxide BUN Creatinine Glucose POC Glucose 203 H 205 H Calcium Ferritin AST ALT Lactate Dehydrogenase C-Reactive Protein Total Protein Albumin Arterial Blood Glucose 191 H Arterial Blood Ionized Calcium Coronavirus (PCR) 04/30/21 05/01/21 05/01/21 21:16 05:22 07:33 WBC RDW Plt Count Lymph % (Auto) Brown % (Auto) Lymph # (Auto) Brown # (Auto) Seg Neutrophils % Seg Neuts % (Manual) Lymphocytes % (Manual) Seg Neutrophils # Seg Neutrophils # Man Lymphocytes # (Manual) Monocytes # (Manual) D-Dimer ABG pH POC ABG pO2 ABG pO2 ABG HCO3 ABG O2 Saturation ABG Base Excess ABG Hemoglobin ABG Oxyhemoglobin ABG Sodium ABG Chloride ABG Glucose Oxyhemoglobin Carboxyhemoglobin Sodium Potassium Chloride Carbon Dioxide BUN Creatinine 0.6 L Glucose POC Glucose 184 H 199 H Calcium Ferritin AST ALT Lactate Dehydrogenase C-Reactive Protein Total Protein Albumin Arterial Blood Glucose Arterial Blood Ionized Calcium Coronavirus (PCR) 05/01/21 05/01/21 05/02/21 11:36 22:14 05:20 WBC 21.3 H RDW Plt Count Lymph % (Auto) Brown % (Auto) Lymph # (Auto) Brown # (Auto) Seg Neutrophils % Seg Neuts % (Manual) 94.0 H Lymphocytes % (Manual) 2.0 L Seg Neutrophils # Seg Neutrophils # Man 20.0 H Lymphocytes # (Manual) 0.4 L Monocytes # (Manual) 0.9 H D-Dimer ABG pH POC ABG pO2 ABG pO2 ABG HCO3 ABG O2 Saturation ABG Base Excess ABG Hemoglobin ABG Oxyhemoglobin ABG Sodium ABG Chloride ABG Glucose Oxyhemoglobin Carboxyhemoglobin Sodium Potassium Chloride Carbon Dioxide BUN Creatinine Glucose POC Glucose 196 H 236 H Calcium Ferritin AST ALT Lactate Dehydrogenase C-Reactive Protein Total Protein Albumin Arterial Blood Glucose Arterial Blood Ionized Calcium Coronavirus (PCR) 05/02/21 05/02/21 05/02/21 05:20 05:20 05:20 WBC RDW Plt Count Lymph % (Auto) Brown % (Auto) Lymph # (Auto) Brown # (Auto) Seg Neutrophils % Seg Neuts % (Manual) Lymphocytes % (Manual) Seg Neutrophils # Seg Neutrophils # Man Lymphocytes # (Manual) Monocytes # (Manual) D-Dimer 590.58 H ABG pH POC ABG pO2 ABG pO2 ABG HCO3 ABG O2 Saturation ABG Base Excess ABG Hemoglobin ABG Oxyhemoglobin ABG Sodium ABG Chloride ABG Glucose Oxyhemoglobin Carboxyhemoglobin Sodium 136 L Potassium 5.1 H Chloride 97.1 L Carbon Dioxide BUN Creatinine 0.6 L Glucose 204 H POC Glucose Calcium Ferritin 692.6 H AST ALT Lactate Dehydrogenase 775 H C-Reactive Protein Total Protein 5.8 L Albumin 3.5 L Arterial Blood Glucose Arterial Blood Ionized Calcium Coronavirus (PCR) 05/03/21 05/03/21 05/04/21 11:31 16:13 06:24 WBC 20.0 H RDW 13.1 L Plt Count Lymph % (Auto) Brown % (Auto) Lymph # (Auto) Brown # (Auto) Seg Neutrophils % Seg Neuts % (Manual) Lymphocytes % (Manual) Seg Neutrophils # Seg Neutrophils # Man Lymphocytes # (Manual) Monocytes # (Manual) D-Dimer ABG pH POC ABG pO2 ABG pO2 ABG HCO3 ABG O2 Saturation ABG Base Excess ABG Hemoglobin ABG Oxyhemoglobin ABG Sodium ABG Chloride ABG Glucose Oxyhemoglobin Carboxyhemoglobin Sodium Potassium Chloride Carbon Dioxide BUN Creatinine Glucose POC Glucose 274 H 277 H Calcium Ferritin AST ALT Lactate Dehydrogenase C-Reactive Protein Total Protein Albumin Arterial Blood Glucose Arterial Blood Ionized Calcium Coronavirus (PCR) 05/04/21 05/04/21 05/04/21 06:24 08:04 11:01 WBC RDW Plt Count Lymph % (Auto) Brown % (Auto) Lymph # (Auto) Brown # (Auto) Seg Neutrophils % Seg Neuts % (Manual) Lymphocytes % (Manual) Seg Neutrophils # Seg Neutrophils # Man Lymphocytes # (Manual) Monocytes # (Manual) D-Dimer ABG pH POC ABG pO2 ABG pO2 ABG HCO3 ABG O2 Saturation ABG Base Excess ABG Hemoglobin ABG Oxyhemoglobin ABG Sodium ABG Chloride ABG Glucose Oxyhemoglobin Carboxyhemoglobin Sodium Potassium Chloride Carbon Dioxide BUN Creatinine 0.6 L Glucose POC Glucose 167 H 234 H Calcium Ferritin AST ALT Lactate Dehydrogenase C-Reactive Protein Total Protein Albumin Arterial Blood Glucose Arterial Blood Ionized Calcium Coronavirus (PCR) 05/04/21 05/05/21 05/05/21 16:27 06:00 06:05 WBC 18.9 H RDW Plt Count Lymph % (Auto) 4.7 L Brown % (Auto) Lymph # (Auto) 0.9 L Brown # (Auto) 1.1 H Seg Neutrophils % 89.4 H Seg Neuts % (Manual) Lymphocytes % (Manual) Seg Neutrophils # 16.9 H Seg Neutrophils # Man Lymphocytes # (Manual) Monocytes # (Manual) D-Dimer 397.36 H ABG pH POC ABG pO2 ABG pO2 ABG HCO3 ABG O2 Saturation ABG Base Excess ABG Hemoglobin ABG Oxyhemoglobin ABG Sodium ABG Chloride ABG Glucose Oxyhemoglobin Carboxyhemoglobin Sodium Potassium Chloride Carbon Dioxide BUN Creatinine Glucose POC Glucose 237 H Calcium Ferritin AST ALT Lactate Dehydrogenase C-Reactive Protein Total Protein Albumin Arterial Blood Glucose Arterial Blood Ionized Calcium Coronavirus (PCR) 05/05/21 05/05/21 05/05/21 06:05 06:05 07:26 WBC RDW Plt Count Lymph % (Auto) Brown % (Auto) Lymph # (Auto) Brown # (Auto) Seg Neutrophils % Seg Neuts % (Manual) Lymphocytes % (Manual) Seg Neutrophils # Seg Neutrophils # Man Lymphocytes # (Manual) Monocytes # (Manual) D-Dimer ABG pH POC ABG pO2 ABG pO2 ABG HCO3 ABG O2 Saturation ABG Base Excess ABG Hemoglobin ABG Oxyhemoglobin ABG Sodium ABG Chloride ABG Glucose Oxyhemoglobin Carboxyhemoglobin Sodium Potassium 5.2 H Chloride 95.5 L Carbon Dioxide BUN Creatinine 0.5 L Glucose 222 H POC Glucose 187 H Calcium Ferritin 645.8 H AST ALT Lactate Dehydrogenase 656 H C-Reactive Protein Total Protein 5.8 L Albumin 3.5 L Arterial Blood Glucose Arterial Blood Ionized Calcium Coronavirus (PCR) 05/05/21 11:00 WBC RDW Plt Count Lymph % (Auto) Brown % (Auto) Lymph # (Auto) Brown # (Auto) Seg Neutrophils % Seg Neuts % (Manual) Lymphocytes % (Manual) Seg Neutrophils # Seg Neutrophils # Man Lymphocytes # (Manual) Monocytes # (Manual) D-Dimer ABG pH POC ABG pO2 ABG pO2 ABG HCO3 ABG O2 Saturation ABG Base Excess ABG Hemoglobin ABG Oxyhemoglobin ABG Sodium ABG Chloride ABG Glucose Oxyhemoglobin Carboxyhemoglobin Sodium Potassium Chloride Carbon Dioxide BUN Creatinine Glucose POC Glucose 174 H Calcium Ferritin AST ALT Lactate Dehydrogenase C-Reactive Protein Total Protein Albumin Arterial Blood Glucose Arterial Blood Ionized Calcium Coronavirus (PCR) Chest x-ray: report reviewed, image reviewed Additional Studies: CHEST 1 VIEW 05/05/21 INDICATION: covid 19 pna. COMPARISON: 05/02/2021 FINDINGS: Support devices: None. Heart: Within normal limits. Lungs/Pleura: Bilateral lung opacities have decreased by 50%. No pleural effusion or pneumothorax. Additional findings: None. IMPRESSION: Mild improvement in the bilateral lung opacities. No new acute process. Allied health notes reviewed: nursing
[2021-05-05] MEDS: ALPRAZolam 0.25 MG TAB PO SCH (22:59)
[2021-05-06] MEDS: BUDESONIDE 0.5 MG/2 ML NEBU IH SCH (05:53)
[2021-05-06] MEDS: methylPREDNISolone Sod Succinate 125 MG/2 ML INJ IV SCH ×2 (06:51→13:00)
[2021-05-06] MEDS: BENZONATATE 100 MG CAP PO SCH ×2 (06:52→13:17)
[2021-05-06] MEDS: busPIRone 10 MG TAB PO SCH (10:00)
[2021-05-06] MEDS: FAMOTIDINE 20 MG TAB PO SCH (10:00)
[2021-05-06] MEDS: APIXABAN 5 MG TAB PO SCH (10:01)
[2021-05-06] MEDS: GABAPENTIN 300 MG CAP PO SCH ×2 (10:01→13:17)
[2021-05-06] MEDS: ASCORBIC ACID 500 MG TAB PO SCH (10:02)
[2021-05-06] MEDS: ZINC SULFATE 220 MG CAP PO SCH (11:00)
--- NOTE | 2021-05-06 11:51 | Discharge Summary ---
Providers - Providers Date of Admission: 04/17/21 00:43 Date of discharge: 05/06/21 Attending physician: NATHAN AGUILAR MD 04/17/21 01:45 Consult to Physician [CONS] Routine Comment: Consulting Provider: SHANTA SWAN Physician Instructions: Reason For Exam: covid Consult to Physician [CONS] Routine Comment: Consulting Provider: TANI WOODS Physician Instructions: Reason For Exam: covid 04/19/21 14:51 Physical Therapy Evaluation and Treat [CONS] Routine Comment: Reason For Exam: mobility 05/01/21 08:48 Consult to PICC Line RN [CONS] Routine Reason For Exam: needs iv acces Type Line:: Midline Primary care physician: CAGE MANAGER Hospitalization Reason for admission: shortness of breath Condition: Stable Hospital course: HPI: 51-year-old male with history of morbid obesity, hypertension, migraine, coronary osteoarthritis and GERD and headache was brought to the emergency room because of progressive shortness of breath. Patient has history of Covid and he was admitted last week to the hospital. He states he was sent home with oxygen however he is needed 4 L of oxygen and his shortness of breath has gotten worse when he walks his oxygen drops down to the mid 80s. Patient stated that he came into contact with an individual who had tested positive for COVID-19 viral infection, but he admits that he has been fully vaccinated against COVID-19 viral infection. In the emergency room patient CT scan of the chest showed scattered groundglass opacities at the bilateral lung suggesting atypical infectious process. hospital course: 04/18/21 Patient with recently diagnosed Covid-19 04/13/21 as outpatient. Presents with shortness of breath. Now on Remdesivir, Decadron, Rocephin, Zithromax. Patient also has sleep apnea uses CPAP at home. Pulm and ID following He is currently on BIPAP 04/19/21:clinically the patient appears to be in no distress despite being on 100% fio2 bipap mask. However, ABG data looks worse, Po2: 56.3. CXR demonstrates worsened pulmonary interstitial infiltrates. Discussed case with Dr. Lagunas. Low threshold for intubation should he worsen. Patient was advised on my encounter to maintain bipap mask and not remove it. Continue therapy with decadron, remdesivir. Dc abx due to low procal. Actemra ordered. Will follow ID recs. Consult PT to continue mobilizing patient. Encouraged patient to do so in presence of care staff 04/20/2021: Remains bipap dependent. No acute changes in respiratory status. Unfortunately he is low threshold for intubation. Will follow pulmonology/ID recommendations. 04/21/2021: Remains bipap dependent. Currenlty 100%. No changes overnight. Will follow pulm/ID recs. 04/22/2021. Patient currently requiring high flow nasal cannula with 40 L O2 FiO2 of 100%. Continue dexamethasone 6 mg IV for total of 10 days with remdesivir IV x5 days. Continue to follow inflammatory markers of ferritin, D-dimer, CRP and LDH. Patient is s/p Tocilizumab. Prone positioning as able. 04/23/2021: Patient currently requiring high flow nasal cannula with 40 L O2 FiO2 of 100% and BiPAP at night. Continue dexamethasone 6 mg IV for total of 10 days with remdesivir IV x5 days. Continue to follow inflammatory markers of ferritin, D-dimer, CRP and LDH. Patient is s/p Tocilizumab. Prone positioning as able. ID and pulmonary following. 04/24/2021: Patient currently requiring high flow nasal cannula with 40 L O2 FiO2 of 90% and BiPAP at night. Continue dexamethasone 6 mg IV for total of 10 days with remdesivir IV x5 days. Continue to follow inflammatory markers of ferritin, D-dimer, CRP and LDH. Patient is s/p Tocilizumab. Prone positioning as able. ID and pulmonary following. 04/25/2021. Patient currently requiring high flow nasal cannula with 40 L O2 FiO2 of 70% and BiPAP at night. Continue dexamethasone 6 mg IV for total of 10 days with remdesivir IV x5 days. Continue to follow inflammatory markers of ferritin, D-dimer, CRP and LDH. Patient is s/p Tocilizumab. Prone positioning as able. ID and pulmonary following. 04/26/2021. Patient currently requiring high flow nasal cannula with 40 L O2 FiO2 of 80% and BiPAP at night. O2 requirement had to be increased slightly since yesterday. Continue current management. Patient is s/p Tocilizumab. The dexamethasone and remdesivir have been completed. Consider continuing steroids given the ongoing hypoxia. Defer to pulmonary. Continue to monitor inflammatory markers of ferritin, D-dimer, CRP and LDH. 04/27/2021. Patient currently requiring high flow nasal cannula with 40 L O2 FiO2 of 80% and BiPAP at night. Continue current management. Patient is s/p Tocilizumab. The dexamethasone and remdesivir have been completed. Consider continuing steroids given the ongoing hypoxia. Defer to pulmonary. Continue to monitor inflammatory markers of ferritin, D-dimer, CRP and LDH. 04/28/2021. Patient still requiring high flow nasal cannula with 40 L O2 FiO2 of 80% and BiPAP at night. Patient is s/p Tocilizumab. The dexamethasone and remdesivir have been completed. Pulmonology recommends Eliquis for increased D- dimer. However, CTA negative from 04/16/2021. Continue to trend inflammatory markers. 04/29/2021: Currently on hi flow FIo 2 80%. Remains on high dose steroids. Added budesonide to inhaler regimen. Will continue to follow for improvement. 04/30/2021: Remains on hi flow FIo 2 80%. Continue current supportive management for covid pneumonia. Called physical therapist to work with patient to mobilize and educate on exercises patient can do while hospitalized. Additionally, I suspect patient has some underlying anxiety after discussion this AM. WIll add buspar to medications. Will d/w CM regarding placement options for patient. 05/01/2021: Remains on hi flow 40/100 today. Patient doing well, very small incremental improvements. Working with CM for LTAC placement 05/02/2021: Remains on hi flow. Awaiting LTAC placement. 05/03/2021: Remains on hi flow. Awaiting LTAC placement. Discussed plan with patient at bedside and answered questions to satisfaction. 05/04/2021: Remains on hi flow in the day, bipap at night. Continue agressive weaning. Awaiting ltac placement. 05/05/2021: Remains on hi flow in the day, bipap at night. Currently 40/70. Continue aggressive weaning. Awaiting ltac placement. 05/06/2021: LTAC facility arrangements finalized by CM. WIll discharge patient today. Rx e-transmitted to pharmacy. Assessment and Plan: #Acute hypoxic respiratory failure - on hi stephan nasal cannula , bipap nightly and prn in daytime. - albuterol 2.5 IH q4hr prn /budesonide bid - continue solumedrol. - pulmonology following #Severe COVID-19 pneumonia - RT PCR positive, patient reports having Pfizer vaccine x2 doses - follow inflammatory markers - decadron initiated initially, now on solumedrol 60 q6 - s/p tociluzimab, remdemsivir - apixaban #Anxiety - continue alprazolam - buspar 10 mg po bid -continue xanax prn. # Hypertension - hydralazine prn #GERD - Pepcid 20 mg IV bid # History of Arthritis -moprhine prn # Neuropathy - gabapentin 300 mg po tid #Morbid obesity - poor prognosticator in severe covid 19 presentations DVT Ppx: heparin 5000 units q8hr Dispo: IMCU The high probability of a clinically significant, sudden or life threatening deterioration of the [pulmonary, neuro] system(s) required my full and direct attention, intervention and personal management. The aggregate critical care time was [60] minutes. This time is in addition to time spent performing reported procedures but includes the following: [x] Data Review and interpretation [x] Patient assessment and monitoring of vital signs [x] Documentation [x] Medication orders and management Disposition: [facility] Final Discharge Diagnosis (Prints w/discharge instructions): ACUTE HYPOXIC RESPIRATORY FAILURE DUE TO COVID PNEUMONIA Time spent for discharge: 35 Core Measure Documentation - Palliative Care Palliative Care/ Comfort Measures: Not Applicable - Core Measures Any of the following diagnoses?: none Exam - Physical Exam Narrative exam: GENERAL: Not in acute distress, sitting up in bed, morbidly obese . on hi flow nc HEENT: Normocephalic. Atraumatic. Patient has moist mucous membranes. NECK: Supple. Trachea midline. CHEST/LUNGS: Bilateral crackles. HEART/CARDIOVASCULAR: Regular in rate and rhythm. S1 and S2 positive. ABDOMEN: Abdomen is soft, nontender. Patient has normal bowel sounds. SKIN: There is no rash. Warm and dry. NEURO: No focal motor deficit. Follows command. MUSCULOSKELETAL: No joint effusion or tenderness. EXTRIMITY: No edema, no cyanosis or clubbing. PSYCH: Cooperative. - Constitutional Vitals: Temp Pulse Resp BP Pulse Ox 97.9 F 78 21 141/87 94 05/06/21 08:00 05/06/21 07:00 05/06/21 07:00 05/06/21 07:00 05/06/21 07:00 Plan Plan of Treatment: Mr. Cook you admitted for acute respiratory distress due to COVID-19 pneumonia. During her hospitalization here you required BiPAP mask to maintain your oxygen saturations. We consulted a lung doctor, an infectious disease doctor who awaited with the recommendations. We initiated you on antibiotics, high-dose steroids, COVID antiviral therapies (remdesivir, Tocilizumab), and inhaled nebulizers. You have shown steady improvement to the point to where you have been de-escalated to high flow nasal cannula. We have arranged LTAC placement for you via our family independence case manager where you will continue your recovery process. You will be discharged with the following medications: Xanax 0.25 mg p.o. nightly as needed for anxiety, BuSpar 10 mg p.o. twice daily, Decadron steroid taper, DuoNeb nebulizer every 4 hours, Eliquis 5 mg p.o. twice daily, Flexeril 10 mg p.o. 3 times daily as needed for muscle spasms, gabapentin 300 mg p.o. 3 times daily, Pepcid 20 mg p.o. twice daily, Pulmicort 0.5 mg inhaled nebulizer every 12 hours, zinc sulfate to 20 mg p.o. twice daily. You are recommended to have follow-up with a lung doctor as you are high risk for "long haul COVID" and will need very close pulmonary care/monitoring. We wish you luck in your recovery process. Follow up with: PRIMARY CARE, [Primary Care Provider] - 3-5 Days Prescriptions: ALPRAZolam [Xanax TAB] 0.25 mg PO QHS #30 tablet busPIRone [Buspar] 10 mg PO BID 30 Days #60 tablet Dexamethasone [Decadron] 6 mg PO UNK 28 Days #84 tab Ipratropium/Albuterol Sulfate [DUONEB *Not for PRN Use*] 1 ampul IH Q4HR 30 Days #3 ampul.neb Apixaban [Eliquis] 5 mg PO Q12HR 30 Days #60 tablet Cyclobenzaprine [Flexeril 10 MG TAB] 1 tab PO TID PRN 30 Days #90 tab PRN Reason: Spasms Gabapentin 300 mg PO TID 30 Days #90 capsule Famotidine [Pepcid] 20 mg PO BID 30 Days #60 tablet Budesonide [Pulmicort Respules] 0.5 mg IH Q12HR 30 Days #1 nebu Zinc Sulfate 220 mg PO BID 30 Days #60 capsule
--- NOTE | 2021-05-06 12:40 | Progress Note ---
Assessment and Plan 51-year-old male with history of morbid obesity, hypertension, migraine, coronary osteoarthritis and GERD and headache was brought to the emergency room because of progressive shortness of breath. Patient has history of Covid and he was admitted last week to the hospital. He states he was sent home with oxygen however he is needed 4 L of oxygen and his shortness of breath has gotten worse when he walks his oxygen drops down to the mid 80s. He has frequent cough. Patient states he has some body aches he denies having nausea. Patient stated that he came into contact with an individual who had tested positive for COVID-19 viral infection, but he admits that he has been fully vaccinated against COVID-19 viral infection.Patient smoking, alcohol or drug history not known at this time. In the emergency room patient CT scan of the chest showed scattered groundglass opacities at the bilateral lung suggesting atypical infectious process. Patient awake. Presently on BIPAP 22/12 Rate 30, FIO2 100% and O2 saturation running 94%. Patient says breathing little better than yesterday. Patient afebrile. No leukocytosis. Patients blood pressure 152/87, pulse 59, Respirations 30. Patient is on awake and sitting up in chair. On Vapotherm with FIO2 70%. O2 saturation 95%. BIPAP 22/12, rate 30, FIO2 80% stand by in the room. Patient says breathing better. Patient afebrile. Has leukocytosis . Patients blood pressure 151/82, pulse 95, Respirations 29. Patients D dimer coming down 397.36 Patient is on Apixaban. Chest xray done 04/20/2021 reported Stable appearance of extensive bilateral pulmonary opacities. Chest xray done 04/22/2021 reported Stable appearance of severe bilateral pulmonary opacities. Venous doppler studies of both legs reported No sonographic evidence for DVT in either lower extremity. Chest xray done 04/30/2021 reported Bilateral parenchymal opacities appear similar to prior. No pneumothorax. Chest xray done 05/05/21 reported Mild improvement in the bilateral lung opacities. No new acute process. Patients chest xray showing improvement and O2 requirements coming down. Patient ABGs ABG on FiO2 100% ABG pH 7.404 (7.320-7.450) 04/30/21 11:40 POC ABG pCO2 40.8 mmHg (32.0-48.0) 04/30/21 11:40 ABG pCO2 36.2 mm Hg 04/18/21 Unknown POC ABG pO2 71.9 mmHg (83-108) L 04/30/21 11:40 ABG pO2 134.6 mm Hg (80.0-90.0) H 04/18/21 Unknown POC ABG HCO3 24.9 04/30/21 11:40 ABG O2 Saturation 94.4 (0-100) 04/30/21 11:40 Patient is on I/V solumedrolApixaban Famotidine, Albuterol/budesonide aerosol treatments, benzonatate. Finished course of Remdesivir. Because of increased shortness of breath and bronchospasm added IV solumedrol. Decreasing FIO2 to 65%. I spent a critical care time of 35 minutes reviewing the chart, examining the patient, talking to the nursing staff and respiratory therapy, reviewing chest xray and lab results, and workup of plan of treament in this critically ill COVID pneumonia patient with acute respiratory failure. - Patient Problems (1) Acute respiratory failure due to COVID-19 Status: Acute Plan to address problem: Vapotherm FIO2 65%. BIPAP 28/12, rate 30, FIO2 70% stand by in the room Started on I/V solumedrol. Finished course of Remdesivir. Continue Apixaban. Continue Famotidine. Albuterol/budesonide aerosol treatments. (2) GERD (gastroesophageal reflux disease) Status: Acute Plan to address problem: Patient is on Famotidine. (3) Hypertension Status: Acute Plan to address problem: Management as per primary care. (4) Coronavirus infection Status: Acute Plan to address problem: Patient is finished course of Remdesivir and decadron. Started on I/V solumedrol because of increased shortness of breath and Bronchospasm. Management as per infectious diseases. Patient is on Apixaban. Subjective Date of service: 05/06/21 Principal diagnosis: AHRF; ARDS; ANKUSH; COVID-19 infxn; Pneumonia; Morbid Obesity Interval history: 51-year-old male with history of morbid obesity, hypertension, migraine, coronary osteoarthritis and GERD and headache was brought to the emergency room because of progressive shortness of breath. Patient has history of Covid and he was admitted last week to the hospital. He states he was sent home with oxygen however he is needed 4 L of oxygen and his shortness of breath has gotten worse when he walks his oxygen drops down to the mid 80s. He has frequent cough. Patient states he has some body aches he denies having nausea. Patient stated that he came into contact with an individual who had tested positive for COVID-19 viral infection, but he admits that he has been fully vaccinated against COVID-19 viral infection.Patient smoking, alcohol or drug history not known at this time. In the emergency room patient CT scan of the chest showed scattered groundglass opacities at the bilateral lung suggesting atypical infectious process. Patient is on awake and sitting up in chair. On Vapotherm with FIO2 70%. O2 saturation 95%. BIPAP 09/04, rate 30, FIO2 80% stand by in the room. Patient sa ys breathing better. Patient afebrile. Has leukocytosis . Patients blood pressure 151/82, pulse 95, Respirations 29. Patients D dimer coming down 397.36 Patient is on Apixaban. Chest xray done 04/20/2021 reported Stable appearance of extensive bilateral pulmonary opacities. Chest xray done 04/22/2021 reported Stable appearance of severe bilateral pulmonary opacities. Venous doppler studies of both legs reported No sonographic evidence for DVT in either lower extremity. Chest xray done 04/30/2021 reported Bilateral parenchymal opacities appear similar to prior. No pneumothorax. Chest xray done 05/05/21 reported Mild improvement in the bilateral lung opacities. No new acute process. Patients chest xray showing improvement and O2 requirements coming down. Patient ABGs ABG on FiO2 100% ABG pH 7.404 (7.320-7.450) 04/30/21 11:40 POC ABG pCO2 40.8 mmHg (32.0-48.0) 04/30/21 11:40 ABG pCO2 36.2 mm Hg 04/18/21 Unknown POC ABG pO2 71.9 mmHg (83-108) L 04/30/21 11:40 ABG pO2 134.6 mm Hg (80.0-90.0) H 04/18/21 Unknown POC ABG HCO3 24.9 04/30/21 11:40 ABG O2 Saturation 94.4 (0-100) 04/30/21 11:40 Patient is on I/V solumedrol, Apixaban Famotidine, Albuterol/budesonide aerosol treatments, benzonatate. Finished course of Remdesivir. Decreasing FIO2 to 65%. Objective Vital Signs - 12hr 05/06/21 05/06/21 05/06/21 01:00 01:30 02:00 Temperature Pulse Rate 50 L 57 L 61 Pulse Rate [ From Monitor] Respiratory 33 H 30 H 27 H Rate Blood Pressure 146/73 146/73 152/88 O2 Sat by Pulse 95 100 98 Oximetry 05/06/21 05/06/21 05/06/21 02:30 03:00 03:27 Temperature Pulse Rate 66 53 L Pulse Rate [ From Monitor] Respiratory 17 18 Rate Blood Pressure 152/88 157/73 O2 Sat by Pulse 98 96 100 Oximetry 05/06/21 05/06/21 05/06/21 03:39 04:00 04:45 Temperature 97.6 F Pulse Rate 70 52 L 68 Pulse Rate [ From Monitor] Respiratory 36 H 15 Rate Blood Pressure 125/78 136/66 O2 Sat by Pulse 100 94 Oximetry 05/06/21 05/06/21 05/06/21 05:00 06:00 07:00 Temperature Pulse Rate 56 L 60 78 Pulse Rate [ From Monitor] Respiratory 24 14 21 Rate Blood Pressure 131/66 152/79 141/87 O2 Sat by Pulse 96 100 94 Oximetry 05/06/21 05/06/21 05/06/21 08:00 09:00 10:00 Temperature 97.9 F Pulse Rate 57 L 90 90 Pulse Rate [ 55 L From Monitor] Respiratory 20 23 24 Rate Blood Pressure 156/84 156/84 158/87 O2 Sat by Pulse 93 96 92 Oximetry 05/06/21 05/06/21 11:00 12:00 Temperature 98.5 F Pulse Rate 75 81 Pulse Rate [ 55 L From Monitor] Respiratory 23 21 Rate Blood Pressure 117/43 125/86 O2 Sat by Pulse 92 Oximetry Constitutional: no acute distress, alert, other (Sitting up in chair with vapotherm, FIO2 70%. Mild shortness of breath at rest.) Eyes: non-icteric ENT: oropharynx moist Neck: supple, no lymphadenopathy, no JVD, other (large circumference) Effort: mildly labored Ascultation: Bilateral: diminished breath sounds, wheezes, rhonchi Percussion: Bilateral: not dull Cardiovascular: irregular rhythm, other (Patient tachycardic rate varies from 120 to 140.) Gastrointestinal: normoactive bowel sounds, soft, non-tender, non-distended (protuberant) Integumentary: normal Extremities: no cyanosis, pink and warm, pulses normal, no ischemia or petechiae, edema (trace) Neurologic: normal mental status, non-focal exam, pupils equal and round, CN II- XII normal Psychiatric: mood appropriate, affect normal CBC and BMP: 05/05/21 06:05 05/05/21 06:05 ABG, PT/INR, D-dimer: ABG ABG pH 7.404 (7.320-7.450) 04/30/21 11:40 POC ABG pCO2 40.8 mmHg (32.0-48.0) 04/30/21 11:40 ABG pCO2 36.2 mm Hg 04/18/21 Unknown POC ABG pO2 71.9 mmHg (83-108) L 04/30/21 11:40 ABG pO2 134.6 mm Hg (80.0-90.0) H 04/18/21 Unknown POC ABG HCO3 24.9 04/30/21 11:40 ABG O2 Saturation 94.4 (0-100) 04/30/21 11:40 PT/INR, D-dimer PT 13.8 Sec. (12.2-14.9) 04/28/21 12:51 INR 0.96 (0.87-1.13) 04/28/21 12:51 D-Dimer 397.36 ng/mlDDU (0-234) H 05/05/21 06:00 Abnormal lab findings: Abnormal Labs 04/16/21 04/16/21 04/17/21 21:18 21:18 16:40 WBC 3.5 L RDW Plt Count 85 L Lymph % (Auto) [place] % (Auto) Lymph # (Auto) 0.7 L [place] # (Auto) Seg Neutrophils % 74.2 H Seg Neuts % (Manual) Lymphocytes % (Manual) Seg Neutrophils # Seg Neutrophils # Man Lymphocytes # (Manual) Monocytes # (Manual) D-Dimer ABG pH POC ABG pO2 ABG pO2 ABG HCO3 ABG O2 Saturation ABG Base Excess ABG Hemoglobin ABG Oxyhemoglobin ABG Sodium ABG Chloride ABG Glucose Oxyhemoglobin Carboxyhemoglobin Sodium 132 L Potassium Chloride 93.8 L Carbon Dioxide BUN Creatinine 0.7 L Glucose 125 H POC Glucose Calcium 8.2 L Ferritin 1918.0 H AST 83 H ALT 63 H Lactate Dehydrogenase C-Reactive Protein Total Protein Albumin 3.7 L Arterial Blood Glucose Arterial Blood Ionized Calcium Coronavirus (PCR) 04/17/21 04/17/21 04/17/21 16:40 16:40 16:40 WBC RDW Plt Count Lymph % (Auto) [place] % (Auto) Lymph # (Auto) [place] # (Auto) Seg Neutrophils % Seg Neuts % (Manual) Lymphocytes % (Manual) Seg Neutrophils # Seg Neutrophils # Man Lymphocytes # (Manual) Monocytes # (Manual) D-Dimer 306.45 H ABG pH POC ABG pO2 ABG pO2 ABG HCO3 ABG O2 Saturation ABG Base Excess ABG Hemoglobin ABG Oxyhemoglobin ABG Sodium ABG Chloride ABG Glucose Oxyhemoglobin Carboxyhemoglobin Sodium 135 L Potassium Chloride 96.2 L Carbon Dioxide BUN Creatinine Glucose 155 H POC Glucose Calcium Ferritin AST 72 H ALT 68 H Lactate Dehydrogenase 505 H C-Reactive Protein 16.30 H Total Protein Albumin 3.5 L Arterial Blood Glucose Arterial Blood Ionized Calcium Coronavirus (PCR) 04/17/21 04/17/21 04/18/21 18:45 Unknown 03:53 WBC RDW 13.1 L Plt Count 115 L Lymph % (Auto) 13.0 L [place] % (Auto) 8.7 H Lymph # (Auto) 1.0 L [place] # (Auto) Seg Neutrophils % 78.2 H Seg Neuts % (Manual) Lymphocytes % (Manual) Seg Neutrophils # Seg Neutrophils # Man Lymphocytes # (Manual) Monocytes # (Manual) D-Dimer ABG pH POC ABG pO2 ABG pO2 56.8 L ABG HCO3 27.4 H ABG O2 Saturation 90.8 L ABG Base Excess 3.1 H ABG Hemoglobin 11.3 L 13.7 L ABG Oxyhemoglobin ABG Sodium ABG Chloride ABG Glucose Oxyhemoglobin 89.4 L Carboxyhemoglobin Sodium Potassium Chloride Carbon Dioxide BUN Creatinine Glucose POC Glucose Calcium Ferritin AST ALT Lactate Dehydrogenase C-Reactive Protein Total Protein Albumin Arterial Blood Glucose Arterial Blood Ionized Calcium Coronavirus (PCR) 04/18/21 04/18/21 04/18/21 03:53 08:02 Unknown WBC RDW Plt Count Lymph % (Auto) [place] % (Auto) Lymph # (Auto) [place] # (Auto) Seg Neutrophils % Seg Neuts % (Manual) Lymphocytes % (Manual) Seg Neutrophils # Seg Neutrophils # Man Lymphocytes # (Manual) Monocytes # (Manual) D-Dimer ABG pH POC ABG pO2 ABG pO2 64.3 L 134.6 H ABG HCO3 26.9 H ABG O2 Saturation 93.6 L ABG Base Excess -3.3 L ABG Hemoglobin 11.9 L ABG Oxyhemoglobin ABG Sodium ABG Chloride ABG Glucose Oxyhemoglobin 92.3 L Carboxyhemoglobin Sodium 135 L Potassium Chloride 95.9 L Carbon Dioxide BUN Creatinine 0.7 L Glucose 149 H POC Glucose Calcium Ferritin AST 62 H ALT 59 H Lactate Dehydrogenase C-Reactive Protein Total Protein Albumin 3.3 L Arterial Blood Glucose Arterial Blood Ionized Calcium Coronavirus (PCR) 04/19/21 04/19/21 04/19/21 01:37 07:28 08:44 WBC RDW Plt Count Lymph % (Auto) [place] % (Auto) Lymph # (Auto) [place] # (Auto) Seg Neutrophils % Seg Neuts % (Manual) Lymphocytes % (Manual) Seg Neutrophils # Seg Neutrophils # Man Lymphocytes # (Manual) Monocytes # (Manual) D-Dimer ABG pH POC ABG pO2 56.3 L ABG pO2 ABG HCO3 ABG O2 Saturation ABG Base Excess ABG Hemoglobin ABG Oxyhemoglobin 88.3 L ABG Sodium 132.8 L ABG Chloride 96.0 L ABG Glucose 145 H Oxyhemoglobin Carboxyhemoglobin 0.4 L Sodium Potassium Chloride 97.4 L Carbon Dioxide BUN Creatinine 0.7 L Glucose 130 H POC Glucose 135 H Calcium Ferritin AST 53 H ALT Lactate Dehydrogenase C-Reactive Protein Total Protein Albumin 3.6 L Arterial Blood Glucose 145 H Arterial Blood Ionized Calcium 4.5 L Coronavirus (PCR) 04/19/21 04/19/21 04/19/21 08:44 11:30 16:53 WBC RDW 12.8 L Plt Count Lymph % (Auto) [place] % (Auto) Lymph # (Auto) [place] # (Auto) Seg Neutrophils % Seg Neuts % (Manual) Lymphocytes % (Manual) Seg Neutrophils # Seg Neutrophils # Man Lymphocytes # (Manual) Monocytes # (Manual) D-Dimer ABG pH POC ABG pO2 ABG pO2 ABG HCO3 ABG O2 Saturation ABG Base Excess ABG Hemoglobin ABG Oxyhemoglobin ABG Sodium ABG Chloride ABG Glucose Oxyhemoglobin Carboxyhemoglobin Sodium Potassium Chloride Carbon Dioxide BUN Creatinine Glucose POC Glucose 129 H 146 H Calcium Ferritin AST ALT Lactate Dehydrogenase C-Reactive Protein Total Protein Albumin Arterial Blood Glucose Arterial Blood Ionized Calcium Coronavirus (PCR) 04/19/21 04/19/21 04/20/21 17:21 21:07 07:18 WBC RDW Plt Count Lymph % (Auto) [place] % (Auto) Lymph # (Auto) [place] # (Auto) Seg Neutrophils % Seg Neuts % (Manual) Lymphocytes % (Manual) Seg Neutrophils # Seg Neutrophils # Man Lymphocytes # (Manual) Monocytes # (Manual) D-Dimer ABG pH 7.480 H POC ABG pO2 108.6 H ABG pO2 ABG HCO3 ABG O2 Saturation ABG Base Excess ABG Hemoglobin ABG Oxyhemoglobin ABG Sodium 134.1 L ABG Chloride 97.0 L ABG Glucose 167 H Oxyhemoglobin Carboxyhemoglobin 0.4 L Sodium Potassium Chloride Carbon Dioxide BUN Creatinine Glucose POC Glucose 152 H 128 H Calcium Ferritin AST ALT Lactate Dehydrogenase C-Reactive Protein Total Protein Albumin Arterial Blood Glucose 167 H Arterial Blood Ionized Calcium Coronavirus (PCR) 04/20/21 04/20/21 04/20/21 11:08 11:08 11:08 WBC RDW Plt Count Lymph % (Auto) [place] % (Auto) Lymph # (Auto) [place] # (Auto) Seg Neutrophils % Seg Neuts % (Manual) Lymphocytes % (Manual) Seg Neutrophils # Seg Neutrophils # Man Lymphocytes # (Manual) Monocytes # (Manual) D-Dimer 1082.55 H ABG pH POC ABG pO2 ABG pO2 ABG HCO3 ABG O2 Saturation ABG Base Excess ABG Hemoglobin ABG Oxyhemoglobin ABG Sodium ABG Chloride ABG Glucose Oxyhemoglobin Carboxyhemoglobin Sodium Potassium Chloride Carbon Dioxide BUN 26 H Creatinine Glucose 121 H POC Glucose Calcium Ferritin 1389.0 H AST 46 H ALT Lactate Dehydrogenase 647 H C-Reactive Protein 5.50 H Total Protein Albumin 3.5 L Arterial Blood Glucose Arterial Blood Ionized Calcium Coronavirus (PCR) 04/20/21 04/20/21 04/20/21 11:08 16:04 21:10 WBC RDW 12.9 L Plt Count Lymph % (Auto) [place] % (Auto) 14.0 H Lymph # (Auto) [place] # (Auto) 0.9 H Seg Neutrophils % Seg Neuts % (Manual) Lymphocytes % (Manual) Seg Neutrophils # Seg Neutrophils # Man Lymphocytes # (Manual) Monocytes # (Manual) D-Dimer ABG pH POC ABG pO2 ABG pO2 ABG HCO3 ABG O2 Saturation ABG Base Excess ABG Hemoglobin ABG Oxyhemoglobin ABG Sodium ABG Chloride ABG Glucose Oxyhemoglobin Carboxyhemoglobin Sodium Potassium Chloride Carbon Dioxide BUN Creatinine Glucose POC Glucose 159 H 149 H Calcium Ferritin AST ALT Lactate Dehydrogenase C-Reactive Protein Total Protein Albumin Arterial Blood Glucose Arterial Blood Ionized Calcium Coronavirus (PCR) 04/20/21 04/21/21 04/21/21 Unknown 11:34 11:34 WBC RDW 13.1 L Plt Count Lymph % (Auto) [place] % (Auto) 13.0 H Lymph # (Auto) [place] # (Auto) 1.2 H Seg Neutrophils % 70.4 H Seg Neuts % (Manual) Lymphocytes % (Manual) Seg Neutrophils # Seg Neutrophils # Man Lymphocytes # (Manual) Monocytes # (Manual) D-Dimer ABG pH POC ABG pO2 ABG pO2 ABG HCO3 ABG O2 Saturation ABG Base Excess ABG Hemoglobin ABG Oxyhemoglobin ABG Sodium ABG Chloride ABG Glucose Oxyhemoglobin Carboxyhemoglobin Sodium Potassium Chloride Carbon Dioxide BUN 27 H Creatinine Glucose 107 H POC Glucose Calcium Ferritin AST 46 H ALT Lactate Dehydrogenase C-Reactive Protein Total Protein Albumin 3.4 L Arterial Blood Glucose Arterial Blood Ionized Calcium Coronavirus (PCR) Positive A 04/21/21 04/21/21 04/22/21 17:00 22:05 04:49 WBC RDW Plt Count Lymph % (Auto) 12.2 L [place] % (Auto) 10.7 H Lymph # (Auto) [place] # (Auto) 1.1 H Seg Neutrophils % 76.6 H Seg Neuts % (Manual) Lymphocytes % (Manual) Seg Neutrophils # Seg Neutrophils # Man Lymphocytes # (Manual) Monocytes # (Manual) D-Dimer ABG pH POC ABG pO2 ABG pO2 ABG HCO3 ABG O2 Saturation ABG Base Excess ABG Hemoglobin ABG Oxyhemoglobin ABG Sodium ABG Chloride ABG Glucose Oxyhemoglobin Carboxyhemoglobin Sodium Potassium Chloride Carbon Dioxide BUN Creatinine Glucose POC Glucose 138 H 133 H Calcium Ferritin AST ALT Lactate Dehydrogenase C-Reactive Protein Total Protein Albumin Arterial Blood Glucose Arterial Blood Ionized Calcium Coronavirus (PCR) 04/22/21 04/22/21 04/22/21 04:49 04:49 04:49 WBC RDW Plt Count Lymph % (Auto) [place] % (Auto) Lymph # (Auto) [place] # (Auto) Seg Neutrophils % Seg Neuts % (Manual) Lymphocytes % (Manual) Seg Neutrophils # Seg Neutrophils # Man Lymphocytes # (Manual) Monocytes # (Manual) D-Dimer 1880.44 H ABG pH POC ABG pO2 ABG pO2 ABG HCO3 ABG O2 Saturation ABG Base Excess ABG Hemoglobin ABG Oxyhemoglobin ABG Sodium ABG Chloride ABG Glucose Oxyhemoglobin Carboxyhemoglobin Sodium Potassium Chloride 108.6 H Carbon Dioxide 21 L D BUN 28 H Creatinine 0.6 L Glucose 115 H POC Glucose Calcium Ferritin 1185.0 H AST 50 H ALT Lactate Dehydrogenase 759 H C-Reactive Protein 1.60 H Total Protein Albumin 3.1 L Arterial Blood Glucose Arterial Blood Ionized Calcium Coronavirus (PCR) 04/22/21 04/22/21 04/23/21 16:17 22:08 21:14 WBC RDW Plt Count Lymph % (Auto) [place] % (Auto) Lymph # (Auto) [place] # (Auto) Seg Neutrophils % Seg Neuts % (Manual) Lymphocytes % (Manual) Seg Neutrophils # Seg Neutrophils # Man Lymphocytes # (Manual) Monocytes # (Manual) D-Dimer ABG pH POC ABG pO2 ABG pO2 ABG HCO3 ABG O2 Saturation ABG Base Excess ABG Hemoglobin ABG Oxyhemoglobin ABG Sodium ABG Chloride ABG Glucose Oxyhemoglobin Carboxyhemoglobin Sodium Potassium Chloride Carbon Dioxide BUN Creatinine Glucose POC Glucose 158 H 134 H 159 H Calcium Ferritin AST ALT Lactate Dehydrogenase C-Reactive Protein Total Protein Albumin Arterial Blood Glucose Arterial Blood Ionized Calcium Coronavirus (PCR) 04/24/21 04/25/21 04/25/21 21:20 11:33 16:23 WBC RDW Plt Count Lymph % (Auto) [place] % (Auto) Lymph # (Auto) [place] # (Auto) Seg Neutrophils % Seg Neuts % (Manual) Lymphocytes % (Manual) Seg Neutrophils # Seg Neutrophils # Man Lymphocytes # (Manual) Monocytes # (Manual) D-Dimer ABG pH POC ABG pO2 ABG pO2 ABG HCO3 ABG O2 Saturation ABG Base Excess ABG Hemoglobin ABG Oxyhemoglobin ABG Sodium ABG Chloride ABG Glucose Oxyhemoglobin Carboxyhemoglobin Sodium Potassium Chloride Carbon Dioxide BUN Creatinine Glucose POC Glucose 161 H 126 H 176 H Calcium Ferritin AST ALT Lactate Dehydrogenase C-Reactive Protein Total Protein Albumin Arterial Blood Glucose Arterial Blood Ionized Calcium Coronavirus (PCR) 04/25/21 04/26/21 04/26/21 21:06 16:26 21:26 WBC RDW Plt Count Lymph % (Auto) [place] % (Auto) Lymph # (Auto) [place] # (Auto) Seg Neutrophils % Seg Neuts % (Manual) Lymphocytes % (Manual) Seg Neutrophils # Seg Neutrophils # Man Lymphocytes # (Manual) Monocytes # (Manual) D-Dimer ABG pH POC ABG pO2 ABG pO2 ABG HCO3 ABG O2 Saturation ABG Base Excess ABG Hemoglobin ABG Oxyhemoglobin ABG Sodium ABG Chloride ABG Glucose Oxyhemoglobin Carboxyhemoglobin Sodium Potassium Chloride Carbon Dioxide BUN Creatinine Glucose POC Glucose 214 H 119 H 114 H Calcium Ferritin AST ALT Lactate Dehydrogenase C-Reactive Protein Total Protein Albumin Arterial Blood Glucose Arterial Blood Ionized Calcium Coronavirus (PCR) 04/27/21 04/27/21 04/28/21 07:32 22:02 12:51 WBC 14.9 H RDW 12.8 L Plt Count Lymph % (Auto) 9.5 L [place] % (Auto) Lymph # (Auto) [place] # (Auto) 1.0 H Seg Neutrophils % 81.2 H Seg Neuts % (Manual) Lymphocytes % (Manual) Seg Neutrophils # 12.1 H Seg Neutrophils # Man Lymphocytes # (Manual) Monocytes # (Manual) D-Dimer ABG pH POC ABG pO2 ABG pO2 ABG HCO3 ABG O2 Saturation ABG Base Excess ABG Hemoglobin ABG Oxyhemoglobin ABG Sodium ABG Chloride ABG Glucose Oxyhemoglobin Carboxyhemoglobin Sodium Potassium Chloride Carbon Dioxide BUN Creatinine Glucose POC Glucose 109 H 127 H Calcium Ferritin AST ALT Lactate Dehydrogenase C-Reactive Protein Total Protein Albumin Arterial Blood Glucose Arterial Blood Ionized Calcium Coronavirus (PCR) 04/28/21 04/28/21 04/28/21 12:51 12:51 12:51 WBC RDW Plt Count Lymph % (Auto) [place] % (Auto) Lymph # (Auto) [place] # (Auto) Seg Neutrophils % Seg Neuts % (Manual) Lymphocytes % (Manual) Seg Neutrophils # Seg Neutrophils # Man Lymphocytes # (Manual) Monocytes # (Manual) D-Dimer 861.39 H ABG pH POC ABG pO2 ABG pO2 ABG HCO3 ABG O2 Saturation ABG Base Excess ABG Hemoglobin ABG Oxyhemoglobin ABG Sodium ABG Chloride ABG Glucose Oxyhemoglobin Carboxyhemoglobin Sodium 134 L Potassium Chloride 95.2 L Carbon Dioxide BUN Creatinine 0.6 L Glucose 121 H POC Glucose Calcium Ferritin AST ALT Lactate Dehydrogenase 769 H C-Reactive Protein Total Protein Albumin Arterial Blood Glucose Arterial Blood Ionized Calcium Coronavirus (PCR) 04/28/21 04/28/21 04/28/21 12:51 16:59 21:17 WBC RDW Plt Count Lymph % (Auto) [place] % (Auto) Lymph # (Auto) [place] # (Auto) Seg Neutrophils % Seg Neuts % (Manual) Lymphocytes % (Manual) Seg Neutrophils # Seg Neutrophils # Man Lymphocytes # (Manual) Monocytes # (Manual) D-Dimer ABG pH POC ABG pO2 ABG pO2 ABG HCO3 ABG O2 Saturation ABG Base Excess ABG Hemoglobin ABG Oxyhemoglobin ABG Sodium ABG Chloride ABG Glucose Oxyhemoglobin Carboxyhemoglobin Sodium Potassium Chloride Carbon Dioxide BUN Creatinine Glucose POC Glucose 124 H 146 H Calcium Ferritin 1009.0 H AST ALT Lactate Dehydrogenase C-Reactive Protein Total Protein Albumin Arterial Blood Glucose Arterial Blood Ionized Calcium Coronavirus (PCR) 04/29/21 04/30/21 04/30/21 21:28 04:59 04:59 WBC 30.4 H RDW Plt Count Lymph % (Auto) [place] % (Auto) Lymph # (Auto) [place] # (Auto) Seg Neutrophils % Seg Neuts % (Manual) 88.0 H Lymphocytes % (Manual) 0 L Seg Neutrophils # Seg Neutrophils # Man 26.8 H Lymphocytes # (Manual) 0.0 L Monocytes # (Manual) 2.1 H D-Dimer 592.16 H ABG pH POC ABG pO2 ABG pO2 ABG HCO3 ABG O2 Saturation ABG Base Excess ABG Hemoglobin ABG Oxyhemoglobin ABG Sodium ABG Chloride ABG Glucose Oxyhemoglobin Carboxyhemoglobin Sodium Potassium Chloride Carbon Dioxide BUN Creatinine Glucose POC Glucose 190 H Calcium Ferritin AST ALT Lactate Dehydrogenase C-Reactive Protein Total Protein Albumin Arterial Blood Glucose Arterial Blood Ionized Calcium Coronavirus (PCR) 04/30/21 04/30/21 04/30/21 04:59 04:59 07:32 WBC RDW Plt Count Lymph % (Auto) [place] % (Auto) Lymph # (Auto) [place] # (Auto) Seg Neutrophils % Seg Neuts % (Manual) Lymphocytes % (Manual) Seg Neutrophils # Seg Neutrophils # Man Lymphocytes # (Manual) Monocytes # (Manual) D-Dimer ABG pH POC ABG pO2 ABG pO2 ABG HCO3 ABG O2 Saturation ABG Base Excess ABG Hemoglobin ABG Oxyhemoglobin ABG Sodium ABG Chloride ABG Glucose Oxyhemoglobin Carboxyhemoglobin Sodium Potassium Chloride 97.4 L Carbon Dioxide BUN Creatinine 0.6 L Glucose 180 H POC Glucose 161 H Calcium Ferritin 789.6 H AST ALT 68 H Lactate Dehydrogenase 947 H C-Reactive Protein Total Protein Albumin 3.8 L Arterial Blood Glucose Arterial Blood Ionized Calcium Coronavirus (PCR) 04/30/21 04/30/21 04/30/21 11:02 11:40 16:24 WBC RDW Plt Count Lymph % (Auto) [place] % (Auto) Lymph # (Auto) [place] # (Auto) Seg Neutrophils % Seg Neuts % (Manual) Lymphocytes % (Manual) Seg Neutrophils # Seg Neutrophils # Man Lymphocytes # (Manual) Monocytes # (Manual) D-Dimer ABG pH POC ABG pO2 71.9 L ABG pO2 ABG HCO3 ABG O2 Saturation ABG Base Excess ABG Hemoglobin ABG Oxyhemoglobin 93.6 L ABG Sodium 132.7 L ABG Chloride 97.0 L ABG Glucose 191 H Oxyhemoglobin Carboxyhemoglobin Sodium Potassium Chloride Carbon Dioxide BUN Creatinine Glucose POC Glucose 203 H 205 H Calcium Ferritin AST ALT Lactate Dehydrogenase C-Reactive Protein Total Protein Albumin Arterial Blood Glucose 191 H Arterial Blood Ionized Calcium Coronavirus (PCR) 04/30/21 05/01/21 05/01/21 21:16 05:22 07:33 WBC RDW Plt Count Lymph % (Auto) [place] % (Auto) Lymph # (Auto) [place] # (Auto) Seg Neutrophils % Seg Neuts % (Manual) Lymphocytes % (Manual) Seg Neutrophils # Seg Neutrophils # Man Lymphocytes # (Manual) Monocytes # (Manual) D-Dimer ABG pH POC ABG pO2 ABG pO2 ABG HCO3 ABG O2 Saturation ABG Base Excess ABG Hemoglobin ABG Oxyhemoglobin ABG Sodium ABG Chloride ABG Glucose Oxyhemoglobin Carboxyhemoglobin Sodium Potassium Chloride Carbon Dioxide BUN Creatinine 0.6 L Glucose POC Glucose 184 H 199 H Calcium Ferritin AST ALT Lactate Dehydrogenase C-Reactive Protein Total Protein Albumin Arterial Blood Glucose Arterial Blood Ionized Calcium Coronavirus (PCR) 05/01/21 05/01/21 05/02/21 11:36 22:14 05:20 WBC 21.3 H RDW Plt Count Lymph % (Auto) [place] % (Auto) Lymph # (Auto) [place] # (Auto) Seg Neutrophils % Seg Neuts % (Manual) 94.0 H Lymphocytes % (Manual) 2.0 L Seg Neutrophils # Seg Neutrophils # Man 20.0 H Lymphocytes # (Manual) 0.4 L Monocytes # (Manual) 0.9 H D-Dimer ABG pH POC ABG pO2 ABG pO2 ABG HCO3 ABG O2 Saturation ABG Base Excess ABG Hemoglobin ABG Oxyhemoglobin ABG Sodium ABG Chloride ABG Glucose Oxyhemoglobin Carboxyhemoglobin Sodium Potassium Chloride Carbon Dioxide BUN Creatinine Glucose POC Glucose 196 H 236 H Calcium Ferritin AST ALT Lactate Dehydrogenase C-Reactive Protein Total Protein Albumin Arterial Blood Glucose Arterial Blood Ionized Calcium Coronavirus (PCR) 05/02/21 05/02/21 05/02/21 05:20 05:20 05:20 WBC RDW Plt Count Lymph % (Auto) [place] % (Auto) Lymph # (Auto) [place] # (Auto) Seg Neutrophils % Seg Neuts % (Manual) Lymphocytes % (Manual) Seg Neutrophils # Seg Neutrophils # Man Lymphocytes # (Manual) Monocytes # (Manual) D-Dimer 590.58 H ABG pH POC ABG pO2 ABG pO2 ABG HCO3 ABG O2 Saturation ABG Base Excess ABG Hemoglobin ABG Oxyhemoglobin ABG Sodium ABG Chloride ABG Glucose Oxyhemoglobin Carboxyhemoglobin Sodium 136 L Potassium 5.1 H Chloride 97.1 L Carbon Dioxide BUN Creatinine 0.6 L Glucose 204 H POC Glucose Calcium Ferritin 692.6 H AST ALT Lactate Dehydrogenase 775 H C-Reactive Protein Total Protein 5.8 L Albumin 3.5 L Arterial Blood Glucose Arterial Blood Ionized Calcium Coronavirus (PCR) 05/03/21 05/03/21 05/04/21 11:31 16:13 06:24 WBC 20.0 H RDW 13.1 L Plt Count Lymph % (Auto) [place] % (Auto) Lymph # (Auto) [place] # (Auto) Seg Neutrophils % Seg Neuts % (Manual) Lymphocytes % (Manual) Seg Neutrophils # Seg Neutrophils # Man Lymphocytes # (Manual) Monocytes # (Manual) D-Dimer ABG pH POC ABG pO2 ABG pO2 ABG HCO3 ABG O2 Saturation ABG Base Excess ABG Hemoglobin ABG Oxyhemoglobin ABG Sodium ABG Chloride ABG Glucose Oxyhemoglobin Carboxyhemoglobin Sodium Potassium Chloride Carbon Dioxide BUN Creatinine Glucose POC Glucose 274 H 277 H Calcium Ferritin AST ALT Lactate Dehydrogenase C-Reactive Protein Total Protein Albumin Arterial Blood Glucose Arterial Blood Ionized Calcium Coronavirus (PCR) 05/04/21 05/04/21 05/04/21 06:24 08:04 11:01 WBC RDW Plt Count Lymph % (Auto) [place] % (Auto) Lymph # (Auto) [place] # (Auto) Seg Neutrophils % Seg Neuts % (Manual) Lymphocytes % (Manual) Seg Neutrophils # Seg Neutrophils # Man Lymphocytes # (Manual) Monocytes # (Manual) D-Dimer ABG pH POC ABG pO2 ABG pO2 ABG HCO3 ABG O2 Saturation ABG Base Excess ABG Hemoglobin ABG Oxyhemoglobin ABG Sodium ABG Chloride ABG Glucose Oxyhemoglobin Carboxyhemoglobin Sodium Potassium Chloride Carbon Dioxide BUN Creatinine 0.6 L Glucose POC Glucose 167 H 234 H Calcium Ferritin AST ALT Lactate Dehydrogenase C-Reactive Protein Total Protein Albumin Arterial Blood Glucose Arterial Blood Ionized Calcium Coronavirus (PCR) 05/04/21 05/05/21 05/05/21 16:27 06:00 06:05 WBC 18.9 H RDW Plt Count Lymph % (Auto) 4.7 L [place] % (Auto) Lymph # (Auto) 0.9 L [place] # (Auto) 1.1 H Seg Neutrophils % 89.4 H Seg Neuts % (Manual) Lymphocytes % (Manual) Seg Neutrophils # 16.9 H Seg Neutrophils # Man Lymphocytes # (Manual) Monocytes # (Manual) D-Dimer 397.36 H ABG pH POC ABG pO2 ABG pO2 ABG HCO3 ABG O2 Saturation ABG Base Excess ABG Hemoglobin ABG Oxyhemoglobin ABG Sodium ABG Chloride ABG Glucose Oxyhemoglobin Carboxyhemoglobin Sodium Potassium Chloride Carbon Dioxide BUN Creatinine Glucose POC Glucose 237 H Calcium Ferritin AST ALT Lactate Dehydrogenase C-Reactive Protein Total Protein Albumin Arterial Blood Glucose Arterial Blood Ionized Calcium Coronavirus (PCR) 05/05/21 05/05/21 05/05/21 06:05 06:05 07:26 WBC RDW Plt Count Lymph % (Auto) [place] % (Auto) Lymph # (Auto) [place] # (Auto) Seg Neutrophils % Seg Neuts % (Manual) Lymphocytes % (Manual) Seg Neutrophils # Seg Neutrophils # Man Lymphocytes # (Manual) Monocytes # (Manual) D-Dimer ABG pH POC ABG pO2 ABG pO2 ABG HCO3 ABG O2 Saturation ABG Base Excess ABG Hemoglobin ABG Oxyhemoglobin ABG Sodium ABG Chloride ABG Glucose Oxyhemoglobin Carboxyhemoglobin Sodium Potassium 5.2 H Chloride 95.5 L Carbon Dioxide BUN Creatinine 0.5 L Glucose 222 H POC Glucose 187 H Calcium Ferritin 645.8 H AST ALT Lactate Dehydrogenase 656 H C-Reactive Protein Total Protein 5.8 L Albumin 3.5 L Arterial Blood Glucose Arterial Blood Ionized Calcium Coronavirus (PCR) 05/05/21 05/05/21 05/05/21 11:00 15:28 21:21 WBC RDW Plt Count Lymph % (Auto) [place] % (Auto) Lymph # (Auto) [place] # (Auto) Seg Neutrophils % Seg Neuts % (Manual) Lymphocytes % (Manual) Seg Neutrophils # Seg Neutrophils # Man Lymphocytes # (Manual) Monocytes # (Manual) D-Dimer ABG pH POC ABG pO2 ABG pO2 ABG HCO3 ABG O2 Saturation ABG Base Excess ABG Hemoglobin ABG Oxyhemoglobin ABG Sodium ABG Chloride ABG Glucose Oxyhemoglobin Carboxyhemoglobin Sodium Potassium Chloride Carbon Dioxide BUN Creatinine Glucose POC Glucose 174 H 245 H 291 H Calcium Ferritin AST ALT Lactate Dehydrogenase C-Reactive Protein Total Protein Albumin Arterial Blood Glucose Arterial Blood Ionized Calcium Coronavirus (PCR) 05/06/21 05/06/21 07:55 11:37 WBC RDW Plt Count Lymph % (Auto) [place] % (Auto) Lymph # (Auto) [place] # (Auto) Seg Neutrophils % Seg Neuts % (Manual) Lymphocytes % (Manual) Seg Neutrophils # Seg Neutrophils # Man Lymphocytes # (Manual) Monocytes # (Manual) D-Dimer ABG pH POC ABG pO2 ABG pO2 ABG HCO3 ABG O2 Saturation ABG Base Excess ABG Hemoglobin ABG Oxyhemoglobin ABG Sodium ABG Chloride ABG Glucose Oxyhemoglobin Carboxyhemoglobin Sodium Potassium Chloride Carbon Dioxide BUN Creatinine Glucose POC Glucose 205 H 282 H Calcium Ferritin AST ALT Lactate Dehydrogenase C-Reactive Protein Total Protein Albumin Arterial Blood Glucose Arterial Blood Ionized Calcium Coronavirus (PCR) Allied health notes reviewed: nursing
[2021-05-06 15:44] VITALS: BP 142/85
== END 2021-05-06 15:15 | DRG 177 ==
LOC: ED 20:18 → IMCU 04-17 00:43 → 4A 04-17 01:53 → 3A 04-17 01:59 → IMCU 04-17 16:24
PROVIDERS: ADMIT Hospitalist; ATTEND Internal Medicine
PROC: 5A09557 Assistance with Respiratory Ventilation, Greater than 96 Consecutive Hours, Continuous Positive Airway Pressure (ICD-10-PCS; principal; 2021-04-17)
PROC: 5A0955A Assistance with Respiratory Ventilation, Greater than 96 Consecutive Hours, High Flow/Velocity Cannula (ICD-10-PCS; 2021-04-17)
PROC: XW033E5 Introduction of Remdesivir Anti-infective into Peripheral Vein, Percutaneous Approach, New Technology Group 5 (ICD-10-PCS; 2021-04-17)
PROC: 4A033R1 Measurement of Arterial Saturation, Peripheral, Percutaneous Approach (ICD-10-PCS; 2021-04-19)
PROC: XW033H5 Introduction of Tocilizumab into Peripheral Vein, Percutaneous Approach, New Technology Group 5 (ICD-10-PCS; 2021-04-19)
PROC: 5A09557 Assistance with Respiratory Ventilation, Greater than 96 Consecutive Hours, Continuous Positive Airway Pressure (ICD-10-PCS; 2021-04-25)
PROC: 05H933Z Insertion of Infusion Device into Right Brachial Vein, Percutaneous Approach (ICD-10-PCS; 2021-05-01)
DX: U07.1 COVID-19 (principal); J12.82 Pneumonia due to coronavirus disease 2019; J96.01 Acute respiratory failure with hypoxia; Z68.43 Body mass index [BMI] 50.0-59.9, adult; I10 Essential (primary) hypertension; K21.9 Gastro-esophageal reflux disease without esophagitis; G47.33 Obstructive sleep apnea (adult) (pediatric); G43.909 Migraine, unspecified, not intractable, without status migrainosus; M19.90 Unspecified osteoarthritis, unspecified site; E66.01 Morbid (severe) obesity due to excess calories; I25.10 Atherosclerotic heart disease of native coronary artery without angina pectoris; D69.6 Thrombocytopenia, unspecified; G62.9 Polyneuropathy, unspecified; F41.9 Anxiety disorder, unspecified
CPT/HCPCS: 36415; 36600; 71045; 71275; 80048; 80053; 82140; 82565; 82728; 82803; 82805; 82962; 83615; 83735; 83880; 84100; 84145; 85007; 85025; 85027; 85379; 85610; 85730; 86140; 93005; 93306; 93970; 94640; 94644; 94660; 94760; 99291; 99292; G0378; J3490; J0360; J0456; J0696; J1100; J1170; J1644; J1940; J2060; J2270; J2405; J2543; J2930; J3262; J7050; Q9967; U0003

== ENCOUNTER 2021-07-22 10:35 | Outpatient (CLI) | payer OTHER ==
[2021-07-22 11:16] LABS: Hematocrit 40.2 % (35.5-45.6); Mean Corpuscular HGB Conc 35 % (32-34); Mean Corpuscular Volume 88 fl (84-94); Platelet Count 171 K/mm3 (140-440); Red Blood Count 4.58 M/mm3 (3.65-5.03); Red Cell Distribution Width 13.8 % (13.2-15.2)
[2021-07-22 11:48] LABS: Alanine Aminotransferase 30 units/L (7-56); Albumin 4.5 g/dL (3.9-5); Blood Urea Nitrogen 10 mg/dL (9-20); Calcium 9.4 mg/dL (8.4-10.2); Hemolysis Index 3
[2021-07-22 11:53] LABS: BUN/Creatinine Ratio 17
[2021-07-22 11:53] LABS: ABG HCO3 25.7 mmol/L (20.0-26.0); ABG Methemoglobin 0.5 % (0.0-1.5); ABG Oxygen Saturation 95.7 % (95.0-99.0); ABG PCO2 41.5 mm Hg; ABG PH 7.411 pH Units (7.350-7.450); ABG PO2 70.4 mm Hg (80.0-90.0)
--- NOTE | 2021-07-22 14:41 | XRay Report ---
CHEST 2 VIEWS INDICATION: Shortness of breath. Pneumonia. COMPARISON: 05/05/2021. FINDINGS: Support devices: None. Heart: Within normal limits. Lungs/Pleura: No acute air space or interstitial disease. No significant pleural effusion. IMPRESSION: No acute findings. Signer Name: Akhil Dubon MD Signed: 07/22/2021 2:37 PM Workstation Name: [id number]
== END 2021-07-22 10:36 | disposition home or self-care (01) ==
LOC: LAB 10:35
PROVIDERS: ATTEND Internal Medicine
DX: U07.1 COVID-19 (principal); G47.30 Sleep apnea, unspecified; E11.9 Type 2 diabetes mellitus without complications; R06.09 Other forms of dyspnea; Z87.01 Personal history of pneumonia (recurrent)
CPT/HCPCS: 36415; 71046; 80053; 82550; 82728; 82803; 83615; 84484; 85027; 85379; 86140